=== PATIENT | female | born 1965 ===

== ENCOUNTER 2024-12-17 07:54 | Inpatient (IN) | payer MEDICARE, SELFPAY ==
--- OUTSIDE RECORDS SUMMARY | 2024-05-01 12:12 | XMS_ITS | Continuity of Care Document ---
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 [id number], [place] tel:[phone] [facility] Follow Up Back Pain (chief complaint)Follow Up Restless Legs (chief complaint)nsv medication injection (chief complaint) Posttraumatic stress disorderTourettes disorderBarrett's esophagus without dysplasiaAcute cystitis without hematuriaHip pain, left Feb-0 1 Leonid Wood. [address] [place] [address], [facility], . tel:[phone] [address], [address] [place] [address], tel:[phone] [facility] comments (chief complaint)urinary symptoms (chief complaint) Left flank painAcute cystitis without hematuria 0 1 Woo Garnica. [address] [place] [address], [facility], [place]. tel:[phone] [address] [place] [address], [address] [place] [address], tel:[phone] [facility] Urinary Symptoms (chief complaint) Left flank painDark urine 1 Lorne Sanderson. [address] [place] [address], [facility], . tel:[phone] [address] [place] [address], [address] [place] [address], tel:[phone] [facility] Musculoskeletal pain (chief complaint) Hip pain, leftStrain of lumbar region, subsequent encounterRestless legs 0 Leonid Knob Noster. [address] [place] [address], [facility], . tel:[phone] [address], [address] [place] [address], tel:[phone] [facility] No Information 0 No Information [address], [address] [place] [address], [place] tel:[phone] [facility] COPD (follow up) (chief complaint)Followu p Chronic Hip Pain (chief complaint)Toradol injection (chief complaint) Strain of lumbar region, subsequent encounterRestless legs 0 Leonid Wood. [address] [place] [address], [facility], [place]. tel:[phone] 9102 [address] , [place], [id number], tel:[phone] [facility] Vaginal discharge (chief complaint) HypokalemiaVagina l discharge Dec- 0 No Information [facility] , [address] [place] [address], [id number], tel:[phone] [facility] weakness (chief complaint)Follow Up of diarrhea (chief complaint) Body mass index (BMI) 31.0-31.9, adultInterstitial lung diseaseIrritable bowel syndrome with diarrheaTourettes disorder Dec- 0 Leonid Israel. [address] [place] [address], [facility], . tel:[phone] [address] [place] [address], [id number], tel:[phone] [facility] Chronic Diarrhea (chief complaint)Comment s (chief complaint)Recent ED Visits (chief complaint) Irritable bowel syndrome with diarrheaPeptic ulcer disease Sep-2 0 Leonid Kn[place] Noster. [address] [place] [address], [facility], . tel:[phone] [address], [id number], tel:[phone] [facility] Fatigue/Vomiting (chief complaint) Diarrhea, unspecified typeCounseling NOS Sep- 0 Jasson Lopez. [address] [place] [address], [facility], . tel:[phone] [address], [id number], [place] tel:[phone] [facility] Strain of lumbar region, subsequent encounter Sep-1 0 No Information [address], [id number], [place] tel:[phone] [facility] Follow Up Left Hip Pain (chief complaint)Follow Up Tourette's (chief complaint) Hip pain, leftTourettes disorderAlcohol use disorder, mild, abuse Sep 0 Leonid Israel. [address] [place] [address], [facility], [place]. tel:[phone] [facility] , [address] [place] [address], [id number], tel:[phone] [facility] nsv EKG, ear lavage, Toradol injection (chief complaint) Hip pain, leftEncounter for therapeutic drug level monitoring 0 No Information [facility] , [address] [place] [address], [id number], [place] tel:[phone] [facility] Anxiety (chief complaint)Back Pain (chief complaint) History of left hip replacementHip pain, leftTourettes disorderIrritable bowel syndrome with diarrhea 0 Leonid Kn[place] Noster. [address] [place] [address], [facility], [place]. tel:[phone] [address] [place] [address], [address] [place] [address], tel:[phone] [facility] No Information 0 Leonid Wood. [address] [place] [address], [facility], [place]. tel:[phone] [address], [id number], [place] tel:[phone] [facility] anxiety (chief complaint)ear fullness (chief complaint) Posttraumatic stress disorderIrritable bowel syndrome with diarrheaTourettes disorderImpacted cerumen of right earHistory of left hip replacement 0 Leonid Coopern. [address] [place] [address], [facility], [place]. tel:[phone] [address] [place] [address], [id number], [place] tel:[phone] [facility] cough (chief complaint) Cough 0 Sandro Burton. [address] [place] [address], [facility], [place]. tel:[phone], [id number], [place] tel:[phone] [facility] Anxiety (chief complaint) Posttraumatic stress disorderTourettes disorder 0 Leonid Kn[place] Noster. [address] [place] [address], [facility], . tel:[phone] [address], [id number], [place] tel:[phone] [facility] PTSD (chief complaint)Social work (chief complaint) Tourettes disorderPosttraum atic stress disorderIrritable bowel syndrome with diarrhea 0 Leonid Kn[place] Noster. [address] [place] [address], [facility], [place]. tel:[phone] [address], [id number], tel:[phone] [facility] tourettes (chief complaint) Posttraumatic stress disorderTourettes disorderInterstit ial lung diseasePeptic ulcer diseaseHistory of left hip replacement 0 Leonid Knob Noster. [address] [place] [address], [facility], [place]. tel:[phone] [address] [place] [address], [id number], [place] tel:[phone] [facility] Telemed (chief complaint)Housing (chief complaint) Tourettes disorderPosttraum atic stress disorder 0 Leonid Knob Noster. [address] [place] [address], [facility], [place]. tel:[phone] [address], [id number], [place] tel:[phone] [facility] neck pain (chief complaint)hip pain (chief complaint) Neck painAbrasion, face without infectionHip pain, left Apr-2 0 No Information [address], [id number], [place] tel:[phone] [facility] consent (chief complaint)COPD (follow up) (chief complaint)Comment s (chief complaint) Counseling, unspecifiedChroni c obstructive pulmonary disease with acute exacerbation Jun- 0 To Bang. [address] [place], [address], [place]. tel:[phone] [facility] , [address] [place] [address], [id number], [place] tel:[phone] [facility] cough (chief complaint)tourett es (chief complaint) Tourettes disorderInterstit ial lung diseaseAlcohol use Jun- 0 Leonid Knob Noster. [address] [place] [address], [id number], [place]. tel:[phone] [address], [id number], [place] tel:[phone] [facility] Consent (chief complaint)Med f/u (chief complaint) Counseling, unspecifiedChroni c obstructive pulmonary disease with acute exacerbation Apr-0 0 To Bang. [address] [place], [address], [place]. tel:[phone] 7069 [facility] , [address] [place] [address], [id number], [place] tel:[phone] [facility] cold symptoms (chief complaint)Achines s (chief complaint) Chronic obstructive pulmonary disease with acute exacerbationMuscu loskeletal painTourette's Apr-0 0 Koplsahraa Brian Anderson. [address], [place], [id number], [place]. tel:[phone] [facility] , [address] [place] [address], [id number], [place] tel:[phone] [facility] Bronchitis, not specified as acute or chronic Mar-2 0 Stevie Davila. [address] [place] [address], [address], [place]. tel:[phone] [facility] , [address] [place] [address], [id number], [place] tel:[phone] [facility] No Information May-0 3-202 0 Leonid Knob Noster. [address] [place] [address], [facility], . tel:[phone] [address], [id number], tel:[phone] [facility] cough (chief complaint) Cough 0 Sandro Burton. [address] [place] [address], [facility], [place]. tel:[phone] [facility] , [address] [place] [address], [id number], tel:[phone] [facility] depression (chief complaint) Back strain, subsequent encounterPosttrau matic stress disorderLymphocyt ic colitisIrritable bowel syndrome with diarrhea 0-201 9 Leonid Knob Noster. [address] [place] [address], [facility], [place]. tel:[phone] [address], [id number], [place] tel:[phone] [facility] No Information Oct-0 3-201 9 Leonid Knob Noster. [address] [place] [address], [facility], [place]. tel:[phone] [address], [address] [place] [address], [place] tel:[phone] [facility] No Information Sep-3 0-201 9 Vallabhaneni Gopichand. [address] [place] [address], [address] [place] [address], [place]. tel:[phone] [facility] , [address] [place] [address], [address] [place] [address], [place] tel:[phone] [facility] No Information Sep-2 7-201 9 Vallabhaneni Gopichand. [address] [place] [address], [address] [place] [address], [place]. tel:[phone] [address], [id number], tel:[phone] [facility] No Information Sep-2 4-201 9 Joel Lara. [address] [place] [address], [facility], [place]. tel:[phone] [address], [address] [place] [address], tel:[phone] [facility] back pain (chief complaint) Posttraumatic stress disorderHistory of substance abuseBack strain, subsequent encounterNeurotic excoriationsCellu litis of chest wall Sep-0 5 9 Leonid Israel. [address] [place] [address], [facility], . tel:[phone] [address], [address] [place] [address], tel:[phone] [facility] NSV - post hospital stay (chief complaint) Chronic right-sided low back pain without sciatica Aug-2 0-201 9 No Information [address], [address] [place] [address], tel:[phone] [facility] Posttraumatic stress disorderChronic right-sided low back pain without sciaticaOther chronic painLeft hip pain Oct-0 9-201 9 No Information [address], [address] [place] [address], [place] tel:[phone] [facility] hospital discharge (chief complaint) Posttraumatic stress disorderHistory of substance abuseBilateral impacted cerumen Oct-0 6201 9 Leonid Israel. [address] [place] [address], [facility], . tel:[phone] [address], [address] [place] [address], tel:[phone] [facility] No Information Merritt-0 7-201 9 Vallabyana Hernandezpichand. [address] [place] [address], [id number], [place]. tel:[phone] [facility] , [address] [place] [address], [id number], tel:[phone] [facility] No Information Merritt-0 9 Cira Menjivarhand. [address] [place] [address], [id number], [place]. tel:[phone] [facility] , [address] [place] [address], [address] [place] [address], [place] tel:[phone] [facility] diarrhea (chief complaint) Tourette's disorderPosttraum atic stress disorder Merritt-0 9 LeonidUNC HealthKnob Noster. [address] [place] [address], [facility], [place]. tel:[phone] [address], [address] [place] [address], tel:[phone] [facility] Follow Up of abdominal pain (chief complaint)back pain (chief complaint) Chronic right-sided low back pain without sciaticaOther chronic painIrritable bowel syndrome with diarrheaHistory of left hip replacementCigare tte nicotine dependence without complication Jun-2 9 LeonidUNC HealthIsrael. [address] [place] [address], [facility], . tel:[phone] [address], [address] [place] [address], tel:[phone] [facility] No Information Jun-2 9 No Information [address], [address] [place] [address], [place] tel:[phone] [facility] diarrhea (chief complaint) Irritable bowel syndrome with diarrhea Jun-0 9 LeonidUNC HealthKnob Noster. [address] [place] [address], [facility], . tel:[phone] [address], [address] [place] [address], [place] tel:[phone] [facility] Abdominal pain (chief complaint)Back pain (chief complaint)Insomni a (chief complaint)Toradol Inj (chief complaint) Left hip painLoss of consciousnessGene ralized abdominal painPTSD (post-traumatic stress disorder) 9 No Information [address], [id number], tel:[phone] [facility] Nausea (chief complaint) Loss of consciousnessAcut e gastritis without hemorrhage, unspecified gastritis type 9 No Information [address], [id number], [place] tel:[phone] [facility] Itching (chief complaint)fatigue (chief complaint) Seborrheic dermatitis of scalpDry skinBacterial vaginosisOther specified bacterial agents as the cause of diseases classified elsewhereInsomnia , unspecified type 9 Leonid Wood. [address] [place] [address], [address], [place]. tel:[phone] [address], [id number], tel:[phone] [facility] Vaginal Discharge (chief complaint) Acute vaginitisScreenin g for cervical cancerHistory of left hip replacement 8 Leonid Wood. [address] [place] [address], [address], [place]. tel:[phone] [address], [id number], [place] tel:[phone] [facility] nausea (chief complaint)cough (chief complaint) CoughNausea and vomiting, intractability of vomiting not specified, unspecified vomiting typeChronic bilateral low back pain, with sciatica presence unspecifiedOther chronic painVaginal discharge 8 Katina Samuel. [address] [place] [address], [address], [place]. tel:[phone] [address], [place] , [place], [id number], [place] tel:[phone] [facility] Follow Up of Post Traumatic Stress Disorder (chief complaint) Post-traumatic stress disorder, chronic 3 8 No Information [facility] , [address] [place] [address], [id number], [place] tel:[phone] [facility] dizziness (chief complaint)comment s (chief complaint) Tourette's disorder 0 8 Leonid Wood. [address] [place] [address], [address], [place]. tel:[phone] [address], [id number], [place] tel:[phone] [facility] anxiety (chief complaint) Anxiety disorder, unspecifiedTouret te's 8 No Information [facility] , [address] [place] [address], [id number], [place] tel:[phone] [facility] diarrhea (chief complaint) Abdominal pain in female 8 No Information [facility] , [address] [place] [address], [id number], [place] tel:[phone] [facility] hip pain (chief complaint)mredica tion refills (chief complaint)Ketoral ac injection (chief complaint) Other chronic painIrritable bowel syndrome with diarrheaScreening for colon cancer 8 Leonid Wood. [address] [place] [address], [address], [place]. tel:[phone] [address], [id number], [place] tel:[phone] [facility] No Information 8 Joel Lara. [address] [place] [address], [address], [place]. tel:[phone] [address], [id number], [place] tel:[phone] [facility] No Information 8 Roscoe Tran. [address] [place] [address], [facility], . tel:[phone] [address], [id number], tel:[phone] [facility] Anxiety (chief complaint)Wound (chief complaint) History of substance abuse 8 [facility] [address] [place] [address], [facility], . tel:[phone] [address], [id number], tel:[phone] [facility] Insomnia (chief complaint)Irritab le Bowel Syndrome (chief complaint) Posttraumatic stress disorderTourette' s disorderNose ulcerationIrritab le bowel syndrome with diarrhea 8 [facility] [address] [place] [address], [facility], . tel:[phone] [address], [id number], tel:[phone] [facility] Sleep disturbance (chief complaint) Insomnia, unspecified typeIrritable bowel syndrome with diarrhea 8 [facility] [address] [place] [address], [facility], . tel:[phone] [address], [id number], tel:[phone] [facility] depression (chief complaint) Posttraumatic stress disorderChronic bilateral low back pain, with sciatica presence unspecifiedOther chronic painCoughingDysur iaEncounter for screening for cardiovascular disordersScreenin g for diabetes mellitusScreening for STD (sexually transmitted disease)Chronic fatigueTherapeuti c drug monitoring 8 [facility]. [address] [place] [address], [facility], . tel:[phone] [address] [place] , [place], [id number], tel:[phone] [facility] No Information 2 8 No Information [address], [id number], tel:[phone] [facility] Abdominal pain (chief complaint)Headach e (chief complaint) Peptic ulcer diseasePosttrauma tic stress disorder 3 8 Leonid Wood. [address] [place] [address], [facility], [place]. tel:[phone] [place] [address], [id number], tel:[phone] [facility] abdominal pain (chief complaint) Epigastric discomfort 8 Pradhan Maria E. [address] [place] [address], [facility], . tel:[phone] [address], [address] [place] [address], tel:[phone] [facility] No Information 0 8 Galo Rain. [address] [place] [address], [facility], . tel:[phone], [id number], tel:[phone] [facility] No Information 0 8 No Information [address], [address] [place] [address], [place] tel:[phone] [facility] nausea (chief complaint) Bronchitis 0 8 Leonid Wood. [address] [place] [address], [facility], [place]. tel:[phone] [address], [id number], tel:[phone] [facility] back pain (chief complaint) Strain of lumbar region, initial encounter Fe0 8 Leonid Wood. [address] [place] [address], [facility], [place]. tel:[phone] [address], [id number], tel:[phone] [facility] No Information 8 Stepan Yeniferradhaana luisa. [address] [place] [address], [address] [place] [address], [place]. tel:[phone], [address] [place] [address], [place] tel:[phone] [facility] No Information 8 Finch No. [address] [place] [address], [id number], [place]. tel:[phone] [address], [address] [place] [address], tel:[phone] [facility] Pre-Op Physical (chief complaint)Follow Up of Lice (chief complaint) Recurrent dislocation of hip, unspecified lateralityPeptic ulcer diseaseScreening for STD (sexually transmitted disease) 8 Leonid Wood. [address] [place] [address], [facility], [place]. tel:[phone] [address], [id number], tel:[phone] [facility] No Information 8 Arissoniya Yeniferradhaana luisa. [address] [place] [address], [id number], [place]. tel:[phone] [address], [id number], [place] tel:[phone] [facility] No Information 8 No Information [address], [address] [place] [address], [place] tel:[phone] [facility] medication management (chief complaint) Encounter for administrative examinations 7 No Information [address], [id number], [place] tel:[phone] Home anxiety (chief complaint)hip pain (chief complaint) Dislocation of left hip, subsequent encounterPosttrau matic stress disorderInsomnia, unspecified type 7 Leonid Wood. [address] [place] [address], [id number], [place]. tel:[phone] [address], [id number], [place] tel:[phone] [facility] Hip Pain (chief complaint) Left hip pain 7 No Information [address], [id number], [place] tel:[phone] [facility] Dislocation of left hip, subsequent encounter 7 No Information [address], [id number], [place] tel:[phone] [facility] Mouth Pain (chief complaint) Tooth extraction statusOther psychoactive substance dependence, in remission 7 Leonid Wood. [address] [place] [address], [id number], [place]. tel:[phone] [address], [id number], [place] tel:[phone] [facility] Other psychoactive substance dependence, in remission 7 No Information [address], [id number], [place] tel:[phone] [facility] Mouth Pain (chief complaint) Tooth extraction statusEncounter for therapeutic drug level monitoring 7 Leonid Wood. [address] [place] [address], [id number], [place]. tel:[phone] [address], [id number], [place] tel:[phone] [facility] No Information 7 No Information [facility] , [address] [place] [address], [id number], [place] tel:[phone] [facility] No Information Dec- 7 No Information [facility] , [address] [place] [address], [id number], [place] tel:[phone] [facility] Hip DIslocations (chief complaint)Toradol (chief complaint) Pain in unspecified hipLong term (current) use of opiate analgesicOther personal lines advisor (current) drug therapy Dec- 7 Sandro Burton. [address] [place] [address], [address], [place]. tel:[phone] [address], [id number], [place] tel:[phone] [facility] tremor (chief complaint) Essential tremor Dec- Sandro Burton. [address] [place] [address], [facility], [place]. tel:[phone] [address], [id number], [place] tel:[phone] [facility] No Information 7 Vallabhaneni Gopichand. [address] [place] [address], [id number], [place]. tel:[phone] [address], [id number], [place] tel:[phone] [facility] hip pain (chief complaint)Anxiety (chief complaint) Post-traumatic stress disorder, chronicPain in lt hip Sep-2 7 Sandro Burton. [address] [place] [address], [id number], [place]. tel:[phone] [address], [id number], [place] tel:[phone] [facility] Musculoskeletal pain (chief complaint) Chest painEncounter for screening for cancer of colon Sep-1 7 Katina Samuel. [address] [place] [address], [facility], [place]. tel:[phone] [phone] [facility] , [address] [place] [address], [id number], tel:[phone] [facility] Contusion (FP) (chief complaint) Contusion of head, initial encounterPost-tra umatic stress disorder, chronic 7 [facility]. [address] [place] [address], [facility], [place]. tel:[phone] [address] [place] [address] , [address] [place] [address], [id number], [place] tel:[phone] [facility] chest pain (chief complaint) Chest pain 7 Sandro Burton. [address] [place] [address], [facility], [place]. tel:[phone] [facility] , [address] [place] [address], [id number], [place] tel:[phone] [facility] Major depressive disorder non-psychotic recurrent, severe 7 Lele Sanchez. [address] [place] [address], [facility], [place]. tel:[phone] [facility] , [address] [place] [address], [id number], [place] tel:[phone] [facility] hospital de follow up (chief complaint)Vaginal itching (chief complaint) Duodenitis with bleedingPost-trau matic stress disorder, chronic 7 Lafferty Israel. [address] [place] [address], [address], [place]. tel:[phone] [address], [id number], [place] tel:[phone] [facility] Abdominal pain (chief complaint) Lower abdominal painAnemiaOther psychoactive substance dependence, in remission 7 Katina Samuel. [address] [place] [address], [facility], [place]. tel:[phone] 3432 [facility] , [address] [place] [address], [id number], [place] tel:[phone] [facility] hospital discharge follow up (chief complaint)Depress ion (chief complaint) Post-traumatic stress disorder, chronicRecurrent dislocation, left hipDepression 7 [facility]. [address] [place] [address], [facility], [place]. tel:[phone] [address], [id number], [place] tel:[phone] [facility] medication managment (chief complaint) Encounter for administrative examination 7 Leonid Israel. [address] [place] [address], [facility], [place]. tel:[phone] [address], [id number], tel:[phone] [facility] Encounter for administrative examination 7 Specialist [facility]. [address] [place] [address], [facility], [place]. tel:[phone] [address], [id number], [place] tel:[phone] [facility] foot pain (chief complaint) Neuropathy 7 Deborah Carvajal. [address] [place] [address], [facility], [place]. tel:[phone] [address], [id number], [place] tel:[phone] [facility] Numbness (chief complaint)numbnes s continued (chief complaint) Encounter for administrative examination 7 No Information [address], [id number], [place] tel:[phone] [facility] Encounter for administrative examination 6 Specialist [facility]. [address] [place] [address], [facility], . tel:[phone] [address], [address] [place] [address], tel:[phone] [facility] Encounter for administrative examination 6 Specialist [facility]. [address] [place] [address], [facility], . tel:[phone] [facility] , [address] [place] [address], [address] [place] [address], tel:[phone] [facility] Abdominal pain (chief complaint) Abdominal pain 0 6 Katina Samuel. [address] [place] [address], [facility], . tel:[phone] [address], [address] [place] [address], tel:[phone] [facility] Cold symptoms (chief complaint) Bronchitis 6 Leonid Knob Noster. [address] [place] [address], [facility], [place]. tel:[phone] [address], [address] [place] [address], tel:[phone] [facility] Encounter for administrative examination Nov-2 6 Specialist [facility]. [address] [place] [address], [facility], . tel:[phone] [address], [address] [place] [address], [place] tel:[phone] [facility] hip pain (chief complaint) Pain in left hipEncounter for STD screeningEncounte r for screening for diabetes mellitusEncounter for screening for cardiovascular disordersNausea with vomiting, unspecified Sep- 6 Leonid [place]. [address] [place] [address], [facility], [place]. tel:[phone] [address], [address] [place] [address], [place] tel:[phone] [facility] Encounter for administrative examination Nov-0 6 Specialist [facility]. [address] [place] [address], [facility], . tel:[phone] [facility] , [address] [place] [address], [address] [place] [address], tel:[phone] [facility] Encounter for administrative examination 6 Specialist [facility]. [address] [place] [address], [facility], [place]. tel:[phone] [facility] , [address] [place] [address], [address] [place] [address], tel:[phone] [facility] Rash (chief complaint) Dermatitis 6 Leonid Israel. [address] [place] [address], [facility], . tel:[phone] [address], [address] [place] [address], tel:[phone] [facility] No Information 6 Leonid Kn[place] Noster. [address] [place] [address], [facility], . tel:[phone] [address], [address] [place] [address], tel:[phone] [facility] Encounter for administrative examination 0 6 Specialist [facility]. [address] [place] [address], [facility], [place]. tel:[phone] [address], [address] [place] [address], [place] tel:[phone] [facility] Encounter for administrative examination 2 6 Specialist [facility]. [address] [place] [address], [facility], . tel:[phone] [address], [address] [place] [address], [place] tel:[phone] [facility] musculoskeletal pain (chief complaint)abdomin al pain (chief complaint) CoughBackacheTOUR ETTE'S DISORDER 4 Bogdangennaro Rodriguez. [address] [place], [place], [facility], . tel:[phone] [address], [id number], tel:[phone] [facility] flu-like symptoms (chief complaint)itching (chief complaint) CoughDERMATITIS NOS 4 Damaris Gotti. [address] [place] [address], [facility], [place]. tel:[phone] [address], [id number], tel:[phone] [facility] skin lesion (chief complaint)tourett e's disorder (chief complaint) TOURETTE'S DISORDERPersisten t Insomnia 4 No Information [address], [id number], [place] tel:[phone] [facility] TOURETTE'S DISORDERPOSTTRAUM ATIC STRESS DIS 4 Tariq Zapata. [address] [place] [address], [facility], . tel:[phone] [address], [id number], [place] tel:[phone] [facility] angry (chief complaint) No Information 4 No Information [address], [id number], [place] tel:[phone] [facility] cough (chief complaint)left hip pain (chief complaint)cough, part 2 (chief complaint) Respiratory InsufficiencyTOUR ETTE'S DISORDERCough 3 No Information [address], [id number], [place] tel:[phone] [facility] hip pain (chief complaint) Joint Pain-l/leg 6201 [address], [id number], [place] tel:[phone] [facility] No Information 200 9 No Information [facility] , [address] [place] [address], [id number], tel:[phone] [facility] Tourette Syndrome (chief complaint)anxiety (chief complaint)Leg/rosendo k pain (chief complaint)Insomni a (chief complaint)Dementi a (chief complaint)Sore Throat (chief complaint) Anxiety StatesTOURETTE'S DISORDERSCREEN FOR VENERAL DISLUMBAGOAcute PharyngitisMEMORY LOSS 8 8 Cristiane Bentley. [address] [place], [place], [facility], . tel:[phone] [address], [address] [place] [address], tel:[phone] [facility] cold symptoms (chief complaint) Acute PharyngitisACUTE BRONCHITIS 8 8 [employer] Systemscoana luisa Bentley. [address] [place], [place], [facility], . tel:[phone] [address], [id number], tel:[phone] [facility] anxiety (chief complaint) No Information 8 8 No Information [address], [id number], [place] tel:[phone] [facility] No Information 8 8 Sandro Burton. [address] [place] [address], [address], [place]. tel:[phone] [address], [id number], [place] tel:[phone] [facility] depression (chief complaint)anxiety (chief complaint) Depressive Disorder NecAnxiety States 0200 8 Cristiane Bentley. [address] [place], [address], [place]. tel:[phone] [address], [id number], [place] tel:[phone] [facility] No Information 4200 8 No Information [address], [id number], [place] tel:[phone] [facility] Tourette's (chief complaint) TOURETTE'S DISORDERPOSTTRAUM ATIC STRESS DIS 3 8 No Information [address], [id number], [place] tel:[phone] [facility] No Information 8 No Information [address], [id number], [place] tel:[phone] [facility] tourette's syndrome (chief complaint) No Information 8 No Information [address], [id number], [place] tel:[phone] [facility] No Information 8 No Information [address], [id number], [place] tel:[phone] [facility] No Information 8 No Information [address], [id number], [place] tel:[phone] [facility] diarrhea (chief complaint)tremor (chief complaint) DIARRHEAVACCIN FOR INFLUENZATOURETTE 'S DISORDER 8 Sandro Burton. [address] [place] [address], [address], [place]. tel:[phone], [id number], [place] tel:[phone] [facility] pain (chief complaint)tourett es syndrome (chief complaint) Bharat Tourette DisorderMyalgia And Myositis Nos Nov-2 8 No Information [address], [id number], tel:[phone] [facility] No Information Nov-2 8 No Information [address], [address] [place] [address], tel:[phone] [facility] back pain (chief complaint)home health care (chief complaint)insomni a (chief complaint) Persistent InsomniaAlcoh Dep Nec/nos-contin Nov-0 8 Sandro Burton. [address] [place] [address], [facility], . tel:[phone] [address], [address] [place] [address], tel:[phone] [facility] asthma (chief complaint)terrets (chief complaint)insomni a (chief complaint) Alcoh Dep Nec/nos-continDep ressive Disorder Nec Oct- 8 Sandro Burton. [address] [place] [address], [facility], . tel:[phone] [address] [place] [address], [address] [place] [address], tel:[phone] [facility] No Information 8 No Information [address], [address] [place] [address], tel:[phone] [facility] No Information 8 Bernardaaleida Bates. [address] [place] [address], [facility], . tel:[phone] [address], [address] [place] [address], tel:[phone] [facility] Depressive Disorder NecALCOHOL ABUSE-UNSPEC 8 No Information [address], [address] [place] [address], [place] tel:[phone] [facility] Terretes Syndrome (chief complaint) No Information 8 Sandro Burton. [address] [place] [address], [facility], . tel:[phone], [address] [place] [address], tel:[phone] [facility] No Information 8 No Information [facility] , [address] [place] [address], [address] [place] [address], [place] tel:[phone] [facility] back pain (chief complaint)rash (chief complaint) Joint Dis Nos-pelvis 8 Sandro Burton. [address] [place] [address], [facility], . tel:[phone], [address] [place] [address], tel:[phone] [facility] No Information 8 Austinjunieana luisa Garza. [address] [place] [address], [facility], . tel:[phone], [address] [place] [address], tel:[phone] [facility] Medication Check (chief complaint) Persistent InsomniaAnxiety StatesAlcoh Dep Nec/nos-continChr onic Hepatitis Nos 8 Sandro Burton. [address] [place] [address], [facility], [place]. tel:[phone], [address] [place] [address], [place] tel:[phone] [facility] Chronic Pain (chief complaint) Joint Dis Nos-pelvis 8 Sandro Burton. [address] [place] [address], [facility], . tel:[phone], [address] [place] [address], [place] tel:[phone] [facility] No Information 8 No Information [facility] , [address] [place] [address], [address] [place] [address], tel:[phone] [facility] Alcoh Dep Nec/nos-contin 8 No Information [address], [address] [place] [address], tel:[phone] [facility] vomiting (chief complaint)pain (chief complaint) Joint Dis Nos-pelvisEncntr Long-rx Use NecNausea With Vomiting 8 Sandro Burton. [address] [place] [address], [facility], . tel:[phone] [address], [address] [place] [address], tel:[phone] [facility] No Information 8 No Information [address], [address] [place] [address], tel:[phone] [facility] vomiting (chief complaint)pain (chief complaint) Nausea With VomitingReflux EsophagitisEncntr Long-rx Use Nec 8 Sandro Burton. [address] [place] [address], [facility], . tel:[phone] [address], [address] [place] [address], tel:[phone] [facility] back pain (chief complaint) Joint Dis Nos-pelvisEncntr Long-rx Use Nec 8 Sandro Burton. [address] [place] [address], [facility], . tel:[phone] [address], [address] [place] [address], tel:[phone] [facility] cold symptoms (chief complaint)medicat ion refill (chief complaint) Joint Dis Nos-pelvisPersist ent InsomniaEncntr Long-rx Use NecChronic HepatitisOth Malaise Fatigue 2200 8 Jonnietatagarfield Micheal. [address] [place] [address], [facility], [place]. tel:[phone] [facility] , [address] [place] [address], [id number], [place] tel:[phone] [facility] F/U (chief complaint) Joint Dis Nos-pelvisAnxiety States 1200 8 Jonnievanessa Burton. [address] [place] [address], [facility], [place]. tel:[phone] [address], [id number], [place] tel:[phone] [facility] back pain (chief complaint) Bharat Tourette DisorderJoint Dis Nos-pelvisEncntr Long-rx Use Nec May- 7200 8 Jonnietatagarfield Micheal. [address] [place] [address], [facility], [place]. tel:[phone] [address], [id number], [place] tel:[phone] [facility] back pain (chief complaint)Tourett es (chief complaint) Joint Dis Nos-pelvisGilles Tourette DisorderGilles Tourette Disorder 3200 8 Jonnietatagarfield Micheal. [address] [place] [address], [facility], [place]. tel:[phone] [address], [id number], [place] tel:[phone] [facility] joint pain (chief complaint) Joint Dis Nos-pelvis Apr- 8200 8 Warngarfield Micheal. [address] [place] [address], [facility], [place]. tel:[phone] [address], [id number], [place] tel:[phone] [facility] hip pain (chief complaint) Joint Dis Nos-pelvis 8 Sandro Burton. [address] [place] [address], [facility], [place]. tel:[phone] [facility] , [address] [place] [address], [id number], [place] tel:[phone] [facility] medication refill (chief complaint) Joint Dis Nos-pelvis 8 Jonnievanessa Burton. [address] [place] [address], [facility], [place]. tel:[phone] [facility] , [address] [place] [address], [address] [place] [address], [place] tel:[phone] [facility] No Information 8 No Information [facility] , [address] [place] [address], [id number], [place] tel:[phone] [facility] medication RF (chief complaint) Joint Dis Nos-pelvisCocaine Abuse-episodic 8 Jonnievanessa Burton. [address] [place] [address], [facility], [place]. tel:[phone] [address], [address] [place] [address], [place] tel:[phone] [facility] medication refill (chief complaint)headach e (chief complaint) Joint Dis Nos-pelvisCocaine Abuse-episodicTob acco Use Disorder 8 Sandro Burton. [address] [place] [address], [facility], [place]. tel:[phone] [phone] [facility] , [address] [place] [address], [id number], [place] tel:[phone] [facility] medication refill (chief complaint) No Information 7 Sandro Burton. [address] [place] [address], [facility], [place]. tel:[phone] [address], [id number], [place] tel:[phone] [facility] chronic pain (chief complaint) Joint Dis Nos-pelvis 7 Sandro Burton. [address] [place] [address], [facility], [place]. tel:[phone] 0039 [facility] , [address] [place] [address], [id number], [place] tel:[phone] [facility] nose sore (chief complaint)torrett s syndrome (chief complaint)medicat ion refill (chief complaint) Joint Dis Nos-pelvisTobacco Use Disorder 2 7 Sandro Burton. [address] [place] [address], [facility], [place]. tel:[phone] [facility] , [address] [place] [address], [address] [place] [address], tel:[phone] [facility] cold symptoms (chief complaint)medicat ion refill (chief complaint) Joint Dis Nos-pelvis Jan-0 7 Sandro Burton. [address] [place] [address], [facility], [place]. tel:[phone] [facility] , [address] [place] [address], [id number], tel:[phone] [facility] No Information 7 No Information [facility] , [address] [place] [address], [id number], tel:[phone] [facility] chronic pain (chief complaint) No Information 7 Sandro Burton. [address] [place] [address], [facility], [place]. tel:[phone] [address], [id number], [place] tel:[phone] [facility] Chronic Pain (chief complaint)wheezin g (chief complaint) Joint Dis Nos-pelvis Dec- 2200 7 Sandro Burton. [address] [place] [address], [facility], [place]. tel:[phone] [facility] , [address] [place] [address], [address] [place] [address], [place] tel:[phone] [facility] chronic pain (chief complaint) No Information Sep-2 8-200 7 Sandro Burton. [address] [place] [address], [facility], . tel:[phone], [address] [place] [address], tel:[phone] [facility] abdominal discomfort (chief complaint) No Information Sep-2 5-200 7 Sandro Burton. [address] [place] [address], [facility], [place]. tel:[phone], [address] [place] [address], tel:[phone] [facility] No Information Sep-2 200 7 Sandro Burton. [address] [place] [address], [facility], [place]. tel:[phone], [address] [place] [address], [place] tel:[phone] [facility] medication refill (chief complaint) No Information Nov-1 4200 7 Sandro Burton. [address] [place] [address], [facility], . tel:[phone] [address], [address] [place] [address], tel:[phone] [facility] diarrhea (chief complaint)Pain Control (chief complaint)medicat ion refill (chief complaint) Joint Dis Nos-pelvis Aug-1 7-200 7 Sandro Burton. [address] [place] [address], [facility], [place]. tel:[phone], [address] [place] [address], tel:[phone] [facility] back pain (chief complaint) No Information Aug-0 3-200 7 Sandro uBrton. [address] [place] [address], [facility], . tel:[phone] [facility] , [address] [place] [address], [address] [place] [address], tel:[phone] [facility] No Information 7-200 7 No Information [address], [address] [place] [address], tel:[phone] [facility] Insomnia (chief complaint)depress ion (chief complaint)Joint pain (chief complaint) No Information 0-200 7 Sandro Burton. [address] [place] [address], [facility], . tel:[phone], [address] [place] [address], tel:[phone] [facility] Diarrhea (chief complaint)Hip Pain (chief complaint) No Information 3-200 7 Sandro Burton. [address] [place] [address], [facility], . tel:[phone] [address], [address] [place] [address], tel:[phone] [facility] back pain (chief complaint)insomni a (chief complaint) Joint Dis Nos-pelvisPersist ent Insomnia Aug- 6200 7 Sandro Burton. [address] [place] [address], [facility], . tel:[phone], [address] [place] [address], [place] tel:[phone] [facility] back pain (chief complaint)depress ion (chief complaint) No Information 2200 7 Sandro Burton. [address] [place] [address], [facility], . tel:[phone], [address] [place] [address], tel:[phone] [facility] back pain (chief complaint) Joint Dis Nos-pelvis 5200 7 Sandro Burton. [address] [place] [address], [facility], . tel:[phone] [address], [id number], tel:[phone] [facility] back pain (chief complaint) No Information 8 7 No Information [address], [address] [place] [address], tel:[phone] [facility] sore throat (chief complaint)constip ation (chief complaint) No Information 4 7 No Information [address], [address] [place] [address], tel:[phone] [facility] back pain (chief complaint) No Information 7 Sandro Burton. [address] [place] [address], [facility], . tel:[phone] [address], [address] [place] [address], tel:[phone] [facility] Asthma (chief complaint)abdomin al discomfort (chief complaint) Hordeolum Externum 4 7 Sandro Burton. [address] [place] [address], [facility], . tel:[phone] [address], [address] [place] [address], tel:[phone] [facility] depression (chief complaint)Chronic pain (chief complaint) No Information 7-200 7 Sandro Burton. [address] [place] [address], [facility], . tel:[phone] [address], [address] [place] [address], tel:[phone] [facility] diarrhea (chief complaint) Diarrhea 9200 7 No Information [address], [place] , [place], [id number], tel:[phone] [facility] Back pain (chief complaint)Depress ion (chief complaint) Joint Dis Nos-pelvisCocaine Abuse-episodicTob acco Use DisorderPersisten t Insomnia Jun- 2200 7 Counts Include [address] [facility]. [address] [place] [address], [facility], [place]. tel:[phone] [facility] , [address] [place] [address], [address] [place] [address], tel:[phone] [facility] Back pain (chief complaint)bump (chief complaint) Joint Dis Nos-pelvis Jun-0 5200 7 Counts Include [address] [facility]. [address] [place] [address], [facility], [place]. tel:[phone] [address] [place] [address], [id number], tel:[phone] [facility] Back pain (chief complaint)itchine ss (chief complaint) Joint Pain-pelvisTobacc o Use DisorderDrug Abuse Nec-episodicAnxie ty States May-0 200 7 Counts Include [address] [facility]. [address] [place] [address], [facility], [place]. tel:[phone] [address], [id number], tel:[phone] [facility] pelvic pain (chief complaint) Adjust React-phys SymptBackache Nos Fe 7 Counts Include [address] [facility]. [address] [place] [address], [facility], [place]. tel:[phone] [address] [place] [address], [id number], tel:[phone] [facility] back pain (chief complaint)diabete s (chief complaint) Sprain Lumbar RegionScreen-diab etes Mellitus 0200 7 Josie Penn. [address] [place] [address], [id number], [place]. tel:[phone] [facility] , [address] [place] [address], [id number], tel:[phone] [facility] depression (chief complaint)cough (chief complaint) Bharat Tourette DisorderPersisten t Insomnia 7 Sandro Burton. [address] [place] [address], [facility], . tel:[phone] [address], [id number], tel:[phone] [facility] No Information 7 No Information [address], [id number], [place] tel:[phone] [facility] Vaginal itching (chief complaint)cold symptoms (chief complaint) Candidal VulvovaginitisAcu te Uri Mult Sites Nec 7 No Information [address], [id number], tel:[phone] [facility] Back pain (chief complaint)Depress ion (chief complaint) Joint Dis Nos-pelvis 7 Jonnievanessa Burton. [address] [place] [address], [id number], [place]. tel:[phone] [address], [id number], tel:[phone] [facility] No Information 6 No Information [address], [id number], [place] tel:[phone] [facility] No Information 6 Thelma Garza. [address] [place] [address], [id number], [place]. tel:[phone] [address], [id number], tel:[phone] [facility] hip pain (chief complaint)Insomni a (chief complaint) No Information 1 8-200 6 Sandro Burton. [address] [place] [address], [facility], [place]. tel:[phone] [address], [id number], tel:[phone] [facility] Joint Dis Nos -pelvis (chief complaint)abdomin al discomfort (chief complaint) Nausea With Vomiting Dec- 1-200 6 Sandro Burton. [address] [place] [address], [facility], [place]. tel:[phone] [address], [address] [place] [address], tel:[phone] [facility] chronic pain (chief complaint)nausea (chief complaint) No Information Feb-0 4-200 6 Sandro Burton. [address] [place] [address], [facility], [place]. tel:[phone] [address], [address] [place] [address], [place] tel:[phone] [facility] cold symptoms (chief complaint)knee/le g pain (chief complaint) No Information 2 0-200 6 Sandro Burton. [address] [place] [address], [facility], [place]. tel:[phone] [address], [id number], tel:[phone] [facility] No Information 7-200 6 No Information [address], [id number], [place] tel:[phone] [facility] leg/knee pain (chief complaint) No Information 1 3-200 6 Sandro Burton. [address] [place] [address], [facility], [place]. tel:[phone] [address], [address] [place] [address], [place] tel:[phone] [facility] knee/leg pain (chief complaint) Joint Dis Nos-pelvis Nov-0 6-200 6 Andres Robins. [address] [place] [address], [facility], . tel:[phone] [facility] , [address] [place] [address], [id number], tel:[phone] [facility] chronic pain (chief complaint) Aseptic Necrosis Femur Oct-3 0-200 6 Sandro Burton. [address] [place] [address], [facility], [place]. tel:[phone] [address] [place] [address], [address] [place] [address], tel:[phone] [facility] joint pain f/u,back pain (chief complaint) Aseptic Necrosis Femur Oct-2 3-200 6 Sandro Burton. [address] [place] [address], [facility], . tel:[phone] [address] [place] [address], [address] [place] [address], tel:[phone] [facility] Joint Dis Nos-pelvis (chief complaint)anxiety (chief complaint)cough (chief complaint) No Information Oct-1 6-200 6 Sandro Burton. [address] [place] [address], [facility], . tel:[phone] [address], [address] [place] [address], [place] tel:[phone] [facility] joint pain (chief complaint) Joint Dis Nos-pelvis Oct-0 9-200 6 Sandro Burton. [address] [place] [address], [facility], [place]. tel:[phone] [address] [place] [address], [address] [place] [address], tel:[phone] [facility] insomnia (chief complaint)cough (chief complaint)knee pain (chief complaint) Aseptic Necrosis Femur Oct-0 2-200 6 Warvanessa Burton. [address] [place] [address], [facility], . tel:[phone] [facility] , [address] [place] [address], [id number], tel:[phone] [facility] knee pain (chief complaint)cough (chief complaint) Joint Dis Nos-pelvisCoughTo bacco Use Disorder Sep-2 6 Berrytonvanessa Burton. [address] [place] [address], [facility], [place]. tel:[phone] [facility] , [address] [place] [address], [id number], [place] tel:[phone] [facility] knee/hip pain (chief complaint)depress ion (chief complaint) Joint Pain-l/legAseptic Necrosis Femur Sep- 6 [facility]. [address] [place] [address], [facility], . tel:[phone] [facility] , [address] [place] [address], [address] [place] [address], tel:[phone] [facility] pain (chief complaint)dizzine ss (chief complaint) Asept Necrosis Bone NosJoint Pain-l/leg Sep- 6 Berrytonvanessa Burton. [address] [place] [address], [facility], [place]. tel:[phone] [address], [address] [place] [address], tel:[phone] [facility] No Information Oct- 6 No Information [facility] , [address] [place] [address], [id number], [place] tel:[phone] [facility] BP check (chief complaint) Dizziness And GiddinessAseptic Necrosis FemurTobacco Use Disorder Oct- 6 Warvanessa Burton. [address] [place] [address], [facility], . tel:[phone] [address], [id number], [place] tel:[phone] [facility] No Information 6 Thelma Garza. [address] [place] [address], [facility], [place]. tel:[phone] [facility] , [address] [place] [address], [address] [place] [address], tel:[phone] [facility] osteonecrosis (chief complaint)Dizzine ss (chief complaint) No Information 6 Sandro Burton. [address] [place] [address], [facility], [place]. tel:[phone] [address], [address] [place] [address], tel:[phone] [facility] leg pain (chief complaint) No Information 0 6 Sandro Burton. [address] [place] [address], [facility], [place]. tel:[phone] [address], [address] [place] [address], [place] tel:[phone] [facility] Nausea (chief complaint) Joint Dis Nos-pelvisAnxiety State NosOpioid Dependence-unspec Aug-0 9200 6 No Information [facility] , [address] [place] [address], [address] [place] [address], [place] tel:[phone] [facility] medication refill (chief complaint) Joint Dis Nos-pelvisAnxiety States Aug-0 8200 6 Sandro Burton. [address] [place] [address], [facility], [place]. tel:[phone] [address], [address] [place] [address], [place] tel:[phone] [facility] No Information 0 2-200 6 No Information [address], [address] [place] [address], [place] tel:[phone] [facility] back pain (chief complaint)medicat ion refill (chief complaint) Aseptic Necrosis FemurTobacco Use Disorder Sep-3 1-200 6 Warnken Micheal. [address] [place] [address], [facility], [place]. tel:[phone] [facility] , [address] [place] [address], [address] [place] [address], tel:[phone] [facility] med refill (chief complaint) Nausea With VomitingAbd Pain GeneralizedAsepti c Necrosis Femur Sep- 7-200 6 Warnken Micheal. [address] [place] [address], [facility], [place]. tel:[phone] [facility] , [address] [place] [address], [id number], tel:[phone] [facility] leg pain (chief complaint) Aseptic Necrosis Femur 0-200 6 [place]field Micheal. [address] [place] [address], [facility], [place]. tel:[phone] [facility] , [address] [place] [address], [address] [place] [address], [place] tel:[phone] [facility] leg pain (chief complaint) Aseptic Necrosis Femur 0 3200 6 Jonnievanessa Burton. [address] [place] [address], [facility], [place]. tel:[phone] 1972 [facility] , [address] [place] [address], [id number], [place] tel:[phone] [facility] leg pain (chief complaint) Pruritic Conditions NecAseptic Necrosis Femur Aug- 6-200 6 Warngarfield Micheal. [address] [place] [address], [facility], [place]. tel:[phone] [address], [id number], [place] tel:[phone] [facility] foot discomfort (chief complaint)medicat ion refill (chief complaint) Dermatophytosis Of FootPruritic Conditions NecAseptic Necrosis Femur 2 0-200 6 Warnken Micheal. [address] [place] [address], [facility], . tel:[phone] [facility] , [address] [place] [address], [id number], tel:[phone] [facility] foot sores (chief complaint)medicat ion refill (chief complaint) Aseptic Necrosis FemurDermatophyto sis Of Foot Merritt-1 3-200 6 Warnken Micheal. [address] [place] [address], [facility], . tel:[phone] [facility] , [address] [place] [address], [address] [place] [address], [place] tel:[phone] [facility] No Information Merritt-0 8-200 6 No Information [facility] , [address] [place] [address], [address] [place] [address], tel:[phone] [facility] leg pain (chief complaint) Joint Pain-l/leg Merritt-0 6-200 6 Warnken Micheal. [address] [place] [address], [facility], . tel:[phone] [facility] , [address] [place] [address], [address] [place] [address], tel:[phone] [facility] Generic (chief complaint) Aseptic Necrosis Femur Merritt-0 1-200 6 Warnken Micheal. [address] [place] [address], [facility], . tel:[phone] [address], [address] [place] [address], [place] tel:[phone] [facility] leg pain (chief complaint) Joint Pain-l/leg May-2 5-200 6 Warnken Micheal. [address] [place] [address], [facility], . tel:[phone] [address], [address] [place] [address], tel:[phone] [facility] leg pain (chief complaint) Joint Pain-l/legSyncope And Collapse May-1 8-200 6 Sandro Burton. [address] [place] [address], [facility], [place]. tel:[phone] [address], [id number], tel:[phone] [facility] No Information 1 8-200 6 Sandro Burton. [address] [place] [address], [facility], [place]. tel:[phone] [facility] , [address] [place] [address], [address] [place] [address], [place] tel:[phone] [facility] Recheck/Joint Pain/Lower Extremeties (chief complaint) Joint Pain-l/legPruriti c Conditions Nec July-1 2-200 6 Sandro Burton. [address] [place] [address], [facility], . tel:[phone] [address], [address] [place] [address], tel:[phone] [facility] bilat knee pain (chief complaint) Joint Pain-l/leg May-0 5-200 6 Sandro Burton. [address] [place] [address], [facility], [place]. tel:[phone] [address], [address] [place] [address], tel:[phone] [facility] No Information May-0 3-200 6 No Information [facility] , [address] [place] [address], [address] [place] [address], [place] tel:[phone] [facility] knee pain (chief complaint) Joint Pain-l/leg Apr-2 7-200 6 Sandro Burton. [address] [place] [address], [facility], [place]. tel:[phone] [address], [address] [place] [address], [place] tel:[phone] [facility] knee pain (chief complaint) Joint Pain-l/legAseptic Necrosis FemurObesity Nos Apr-2 0-200 6 Sandro Burton. [address] [place] [address], [facility], [place]. tel:[phone] [facility] , [address] [place] [address], [id number], [place] tel:[phone] [facility] PE (chief complaint) Routine Medical Exam Apr-1 3-200 6 Sandro Burton. [address] [place] [address], [facility], [place]. tel:[phone] [address], [id number], tel:[phone] [facility] knee pain (chief complaint) Aseptic Necrosis FemurTobacco Use Disorder Apr-0 6-200 6 Warvanessa Burton. [address] [place] [address], [facility], [place]. tel:[phone] [facility] , [address] [place] [address], [id number], [place] tel:[phone] [facility] knee pain (chief complaint) Joint Pain-l/legAseptic Necrosis FemurCough Apr-0 4-200 6 No Information [facility] , [address] [place] [address], [id number], [place] tel:[phone] [facility] medication review (chief complaint)cough (chief complaint) Acute NasopharyngitisAs eptic Necrosis Femur Mar-2 7-200 6 Sandro Burton. [address] [place] [address], [facility], [place]. tel:[phone] [address], [id number], [place] tel:[phone] [facility] medication refill (chief complaint)cold symptoms (chief complaint) Aseptic Necrosis FemurPalpitations Joint Pain-l/leg Mar-2 3-200 6 Sandro Burton. [address] [place] [address], [facility], [place]. tel:[phone] [facility] , [address] [place] [address], [id number], tel:[phone] [facility] medication refill (chief complaint) Aseptic Necrosis FemurTobacco Use DisorderJoint Pain-l/legAllergi c Rhinitis Nos May- 6-200 6 [place] Micheal. [address] [place] [address], [facility], . tel:[phone] [facility] , [address] [place] [address], [id number], tel:[phone] [facility] Knee Pain (chief complaint)stress (chief complaint) Joint Pain-l/legTobacco Use DisorderChronic HepatitisChronic Hepatitis May-0 9-200 6 Warvanessa Burton. [address] [place] [address], [facility], . tel:[phone] [address], [address] [place] [address], tel:[phone] [facility] R leg pain (chief complaint)Sleep Apnea (chief complaint) No Information 0 2-200 6 Jonnievanessa Burton. [address] [place] [address], [facility], . tel:[phone] [address], [id number], tel:[phone] [facility] pill count (chief complaint) No Information Apr-2 8-200 6 No Information [facility] , [address] [place] [address], [id number], [place] tel:[phone] [facility] R knee pain (chief complaint) Joint Pain-l/leg Apr-2 3-200 6 Warvanessa Burton. [address] [place] [address], [facility], [place]. tel:[phone] [address], [address] [place] [address], tel:[phone] [facility] R knee pain (chief complaint)discuss test results (chief complaint)cough (chief complaint) Chronic HepatitisJoint Pain-l/legChronic HepatitisCoughTob acco Use Disorder 6 Warvanessa Burton. [address] [place] [address], [facility], . tel:[phone], [address] [place] [address], tel:[phone] [facility] smoking (chief complaint)headach e (chief complaint) Clssc Migraine/not Intrc 6 Warvanessa Burton. [address] [place] [address], [facility], [place]. tel:[phone] [facility] , [address] [place] [address], [address] [place] [address], tel:[phone] [facility] cough (chief complaint)neb tx (chief complaint) No Information 6 No Information [address], [address] [place] [address], tel:[phone] [facility] leg pain (chief complaint)toradol shot (chief complaint) Joint Dis Nos-pelvisPersist ent Insomnia 5 Sandro Burton. [address] [place] [address], [facility], . tel:[phone] [address], [address] [place] [address], tel:[phone] [facility] cold symptoms (chief complaint)psych (chief complaint) Acute BronchitisAnxiety States 6-200 5 Sandro Burton. [address] [place] [address], [facility], [place]. tel:[phone] [address], [address] [place] [address], tel:[phone] [facility] toe pain (chief complaint) Contusion Of ToeAnxiety States 1200 5 Sandro Burton. [address] [place] [address], [facility], . tel:[phone] [facility] , [address] [place] [address], [address] [place] [address], tel:[phone] [facility] pain (chief complaint) Contusion NosDepressive Disorder NecDrug Abuse Nec-unspec Nov-3 0-200 5 No Information [facility] , [address] [place] [address], [address] [place] [address], tel:[phone] [facility] back pain (chief complaint) Persistent InsomniaTension HeadacheBackache Nos Nov-2 8-200 5 Sandro Burton. [address] [place] [address], [facility], . tel:[phone] [address], [address] [place] [address], tel:[phone] [facility] back pain (chief complaint)Headach e (chief complaint) Backache Nos Nov-1 4-200 5 Sandro Burton. [address] [place] [address], [facility], . tel:[phone] [address] [place] [address], [address] [place] [address], tel:[phone] [facility] headache (chief complaint)neck pain and back pain (chief complaint) Tension HeadacheJoint Dis Nos-pelvisAnxiety States Nov-0 7-200 5 Sandro Burton. [address] [place] [address], [facility], . tel:[phone] [address], [id number], tel:[phone] [facility] headache (chief complaint)medicat ion refill (chief complaint) Tension Headache Nov-0 3-200 5 Sandro Burton. [address] [place] [address], [facility], . tel:[phone] [address], [address] [place] [address], tel:[phone] [facility] leg pain (chief complaint)medicat ion review (chief complaint) Tobacco Use Disorder Oct-2 4-200 5 Sandro Burton. [address] [place] [address], [facility], [place]. tel:[phone] [facility] , [address] [place] [address], [id number], tel:[phone] [facility] Left hip and right knee pain (chief complaint)insomni a (chief complaint)tobacco (chief complaint) Joint Pain-l/legTransie nt Insomnia Oct-0 6-200 5 Warvanessa Wileyne. [address] [place] [address], [facility], [place]. tel:[phone] [address], [id number], tel:[phone] [facility] pain (chief complaint) Joint Pain-l/leg Sep-2 2-200 5 Sandro Burton. [address] [place] [address], [facility], [place]. tel:[phone] [address], [id number], tel:[phone] [facility] R leg pain (chief complaint) Joint Pain-l/legAnxiety State Nec Sep-2 1-200 [address] No Information [address], [id number], [place] tel:[phone] [facility] Stolen Meds (chief complaint) Joint Pain-unspecOpioid Dependence-unspec Sep-1 6-200 [address], [id number], [place] tel:[phone] [facility] knee pain (chief complaint) Joint Pain-l/leg Sep-0 8-200 5 Warvanessa Burton. [address] [place] [address], [facility], . tel:[phone] [address], [address] [place] [address], tel:[phone] [facility] cough (chief complaint)pain (chief complaint)back pain (chief complaint) Joint Pain-l/leg Counts Include [address] [facility]. [address] [place] [address], [facility], . tel:[phone] [facility] , [address] [place] [address], [address] [place] [address], tel:[phone] [facility] stolen meds (chief complaint) Drug Abuse Nec-unspec 5 Josie John. [address] [place] [address], [id number], [place]. tel:[phone] [address], [id number], tel:[phone] [facility] cold symptoms (chief complaint)medicat ion review (chief complaint) Fam Hx-ischem Heart Dis Counts Include [facility]. [address] [place] [address], [facility], . tel:[phone] [address], [address] [place] [address], tel:[phone] [facility] cold symptoms (chief complaint)medicat ion review (chief complaint) Tobacco Use DisorderAsthmaAnx iety StatesAdjustment Reaction NosJoint Dis Nos-pelvis Counts Include [facility]. [address] [place] [address], [facility], . tel:[phone] [address], [id number], tel:[phone] [facility] No Information Counts Include [address] [facility]. [address] [place] [address], [facility], . tel:[phone] Family History Family Member Type Diagnosis Age At Onset Sister Problem (finding) alive and well Mother Problem (finding) [facility] nt Immunizations Vaccine Date Status Comments Influenza administered Source: New Imm unization Record Hep A (adult) administered Source: New Im munization Record Pfizer Bivalent Booster for 12+ administe red Source: New Immunization Record Influenza administered Source: New Imm unization Record COVID-19 Tidwell Top 12+ administered Source : New Immunization Record Pfizer Covid-19 administered Source: New Immunization Record Influenza administered Source: New Imm unization Record Pfizer Covid-19 administered Note: Imms R egistry ; Source: Source Unspecified Pfizer Covid-19 administered Note: uvm tello maya nurse, done at home ; Source: Source Unspecified SHINGRIX administered Source: New Imm unization Record Influenza administered Source: New Imm unization Record SHINGRIX administered Source: New Imm unization Record Tdap administered Source: New Imm unization Record Pneumococcal conjugate PCV 13 administere d Source: Other Provider Pneumococcal polysaccharide PPV23 administered Source: Other Provid er Tdap administered Source: Other P rovider flu (split) (3 yrs or older) administered Source: New Immunization Record flu (split) (3 yrs or older) administered Source: New Immunization Record Influenza virus vaccine administered Sour ce: New Immunization Record Payers Payer name Insurance type Covered constitution party ID Authoriza tion(s) Medicare NGS 2010 MB [id number] [place] 2879 [place] NGS 2010 MB [id number] [place] 2879 Medicare NGS 2010 MB [id number] [place] 2879 [place] NGS 2010 MB [id number] [place] 2879 [place] NGS 2010 MB [id number] [place] 2879 Medicare NGS 2010 MB [id number] [place] 2879 Medicare NGS 2010 MB [id number] [place] 2879 Medicare NGS 2010 MB [id number] Medicaid [facility] [facility] Medicare NGS 2010 MB [id number] Medicaid Crossover [facility] Medicare NGS 2010 MB [id number] Medicaid Cros[facility] Medicare NGS 2010 [id number] [facility] Social History Type Description Quantity Date Captured Comments Alcohol Use Details Unknown Caffeine Use Details Unknown Tobacco Use Status Smoking Status No Information Sex Female Sexual Orientation Choose not to disclose Gender Identity Choose not to disclose Chief Complaint And Reason For Visit No Information Plan Of Treatment Date Type Action Status Goal Dilated eye exam . Due on due Goal HEPATITIS C AB TEST due Goal Colonoscopy. Due on 029 due Goal Zoster vaccine (1st) due Goal Dietitian. Due on due Goal FOBT. Due on due Goal Depression scree domenic. Due on due Goal Annual PE. Due on due Goal INFLUENZA. Due on 4 due Goal BMI Physical Edu cation counseling documented in Health Promotion Plan. Due on due Goal PCV13. Due on du e Goal ASCVD 10 year ri sk. Due on due Goal BMI counseling d ocumented in Health Promotion Plan. Due on due Goal BMI Nutrition co unseling documented in Health Promotion Plan. Due on due Goal HIV-1 AG W/HIV-1 & HIV-2 AB due Goal Diabetes Screeni ng. Due on due Goal Zoster vaccine (2nd) due Goal Hepatitis C screening due Goal ThinPrep Pap w/ HPV. Due on due Goal Foot exam. Due on due Goal Thyroid Stim Hormone due Goal Urine microalbum in. Due on due Goal Hemoglobin A1C. Due on due Goal Unhealthy drug u se screening. Due on due Goal Lipid panel. Due on due Goal Lipid Panel. Due on due Goal Thyroid Stim Hormone due Goal BMI Nutrition co unseling documented in Health Promotion Plan. Due on due Goal HEPATITIS C AB TEST due Goal ThinPrep Pap w/ HPV. Due on due Goal Dilated eye exam . Due on due Goal Unhealthy drug u se screening. Due on due Goal Diabetes Screeni ng. Due on due Goal Depression scree domenic. Due on due Goal BMI Physical Edu cation counseling documented in Health Promotion Plan. Due on due Goal ASCVD 10 year ri sk. Due on due Goal Zoster vaccine (1st) due Goal Colonoscopy. Due on 029 due Goal FOBT. Due on due Goal Dietitian. Due on due Goal PCV13. Due on du e Goal HIV-1 AG W/HIV-1 & HIV-2 AB due Goal INFLUENZA. Due on 4 due Goal Urine microalbum in. Due on due Goal Hepatitis C screening due Goal Hemoglobin A1C. Due on due Goal BMI counseling d ocumented in Health Promotion Plan. Due on due Goal Foot exam. Due on due Goal Annual PE. Due on due Goal Zoster vaccine (2nd) due Goal Lipid Panel. Due on due Goal Lipid panel. Due on due Goal PCV13. Due on du e Goal Zoster vaccine () due Goal BMI counseling d ocumented in Health Promotion Plan. Due on due Goal FOBT. Due on due Goal Dilated eye exam . Due on due Goal Zoster vaccine (1st) due Goal ThinPrep Pap w/ HPV. Due on due Goal Depression scree domenic. Due on due Goal BMI Physical Edu cation counseling documented in Health Promotion Plan. Due on due Goal INFLUENZA. Due on 4 due Goal Annual PE. Due on due Goal Unhealthy drug u se screening. Due on due Goal ASCVD 10 year ri sk. Due on due Goal Colonoscopy. Due on 029 due Goal HEPATITIS C AB TEST due Goal Hepatitis C screening due Goal BMI Nutrition co unseling documented in Health Promotion Plan. Due on due Goal Diabetes Screeni ng. Due on due Goal HIV-1 AG W/HIV-1 & HIV-2 AB due Goal Foot exam. Due on 4 due Goal Hemoglobin A1C. Due on due Goal Urine microalbum in. Due on due Goal Thyroid Stim Hormone due Goal Dietitian. Due on 4 due Goal Zoster vaccine (1st) due Goal Thyroid Stim Hormone due Goal Depression scree domenic. Due on due Goal Foot exam. Due on 3 due Goal PCV13 due Goal Colonoscopy. Due on 029 due Goal Dietitian. Due on 3 due Goal BMI counseling d ocumented in Health Promotion Plan. Due on due Goal Diabetes Screeni ng. Due on due Goal Urine microalbum in. Due on due Goal FOBT. Due on due Goal Annual PE. Due on 3 due Goal ThinPrep Pap w/ HPV. Due on due Goal Hemoglobin A1C. Due on due Goal HEPATITIS C AB TEST due Goal HIV-1 AG W/HIV-1 & HIV-2 AB due Goal Dilated eye exam . Due on due Goal Lipid Panel. Due on 024 due Goal Zoster vaccine (2nd) due Goal Chlamydia/GC Amplification d ue Goal INFLUENZA. Due on 4 due Goal ASCVD 10 year ri sk. Due on due Goal Lipid panel. Due on due Goal Lipid panel. Due on due Goal Lipid Panel. Due on due Goal Colonoscopy. Due on due Goal Zoster vaccine (2nd) due Goal Urine microalbum in. Due on due Goal Hemoglobin A1C. Due on due Goal BMI counseling d ocumented in Health Promotion Plan. Due on due Goal Depression scree domenic. Due on due Goal HEPATITIS C AB TEST due Goal Foot exam. Due on 3 due Goal Annual PE. Due on 3 due Goal PCV13 due Goal ASCVD 10 year ri sk. Due on due Goal Dietitian. Due on 3 due Goal Dilated eye exam . Due on due Goal Thyroid Stim Hormone due Goal Zoster vaccine (1st) due Goal Diabetes Screeni ng. Due on due Goal HIV-1 AG W/HIV-1 & HIV-2 AB due Goal ThinPrep Pap w/ HPV. Due on due Goal Chlamydia/GC Amplification d ue Goal INFLUENZA. Due on due Goal FOBT. Due on due Goal BMI counseling d ocumented in Health Promotion Plan. Due on due Goal INFLUENZA. Due on due Goal Colonoscopy. Due on 029 due Goal FOBT. Due on due Goal Dilated eye exam . Due on due Goal Urine microalbum in. Due on due Goal Dietitian. Due on due Goal Hemoglobin A1C. Due on due Goal Thyroid Stim Hormone due Goal Diabetes Screeni ng. Due on due Goal Zoster vaccine (2nd) due Goal Foot exam. Due on due Goal ASCVD 10 year ri sk. Due on due Goal HEPATITIS C AB TEST due Goal Zoster vaccine (1st) due Goal ThinPrep Pap w/ HPV. Due on due Goal Depression scree domenic. Due on due Goal Annual PE. Due on due Goal PCV13 due Goal HIV-1 AG W/HIV-1 & HIV-2 AB due Goal Lipid Panel. Due on due Goal Chlamydia/GC Amplification d ue Goal Lipid panel. Due on due Goal Hemoglobin A1C. Due on due Goal Thyroid Stim Hormone due Goal Dietitian. Due on due Goal PCV13 due Goal Dilated eye exam . Due on due Goal Diabetes Screeni ng. Due on due Goal Colonoscopy. Due on due Goal BMI counseling d ocumented in Health Promotion Plan. Due on due Goal HIV-1 AG W/HIV-1 & HIV-2 AB due Goal Depression scree domenic. Due on due Goal Urine microalbum in. Due on due Goal ASCVD 10 year ri sk. Due on due Goal Foot exam. Due on due Goal Zoster vaccine (1st) due Goal Annual PE. Due on due Goal INFLUENZA. Due on due Goal HEPATITIS C AB TEST due Goal Zoster vaccine (2nd) due Goal ThinPrep Pap w/ HPV. Due on due Goal FOBT. Due on due Goal Lipid panel. Due on due Goal Lipid Panel. Due on due Goal Chlamydia/GC Amplification d ue Goal HIV-1 AG W/HIV-1 & HIV-2 AB due Goal HEPATITIS C AB TEST due Goal Dietitian. Due on due Goal Annual PE. Due on due Goal Diabetes Screeni ng. Due on due Goal Colonoscopy. Due on due Goal FOBT. Due on due Goal BMI counseling d ocumented in Health Promotion Plan. Due on due Goal Hemoglobin A1C. Due on due Goal PCV13 due Goal ThinPrep Pap w/ HPV. Due on due Goal Thyroid Stim Hormone due Goal Dilated eye exam . Due on due Goal Depression scree domenic. Due on due Goal INFLUENZA. Due on 3 due Goal Zoster vaccine (1st) due Goal Foot exam. Due on 3 due Goal Urine microalbum in. Due on due Goal ASCVD 10 year ri sk. Due on due Goal Lipid panel. Due on due Goal Chlamydia/GC Amplification d ue Goal Zoster vaccine (2nd) due Goal Lipid Panel. Due on 024 due Goal Urine microalbum in. Due on due Goal HEPATITIS C AB TEST due Goal Annual PE. Due on 3 due Goal Foot exam. Due on 3 due Goal Colonoscopy. Due on 029 due Goal INFLUENZA. Due on 3 due Goal Thyroid Stim Hormone due Goal Dilated eye exam . Due on due Goal Dietitian. Due on due Goal Hemoglobin A1C. Due on due Goal Diabetes Screeni ng. Due on due Goal PCV13 due Goal Depression scree domenic. Due on due Goal Zoster vaccine (1st) due Goal HIV-1 AG W/HIV-1 & HIV-2 AB due Goal Zoster vaccine (2nd) due Goal FOBT. Due on due Goal Chlamydia/GC Amplification d ue Goal Lipid Panel. Due on due Goal ThinPrep Pap w/ HPV. Due on due Goal ASCVD 10 year ri sk. Due on due Goal BMI counseling d ocumented in Health Promotion Plan. Due on due Goal Lipid panel. Due on due Goal Lipid Panel. Due on due Goal Lipid panel. Due on due Goal PCV13 due Goal Dilated eye exam . Due on due Goal Diabetes Screeni ng. Due on due Goal Colonoscopy. Due on due Goal Zoster vaccine (1st) due Goal Thyroid Stim Hormone due Goal INFLUENZA. Due on 3 due Goal Annual PE. Due on 3 due Goal Foot exam. Due on 3 due Goal ASCVD 10 year ri sk. Due on due Goal Hemoglobin A1C. Due on due Goal Dietitian. Due on 3 due Goal FOBT. Due on due Goal HIV-1 AG W/HIV-1 & HIV-2 AB due Goal Depression scree domenic. Due on due Goal HEPATITIS C AB TEST due Goal ThinPrep Pap w/ HPV. Due on due Goal Zoster vaccine (2nd) due Goal BMI counseling d ocumented in Health Promotion Plan. Due on due Goal Urine microalbum in. Due on due Goal Chlamydia/GC Amplification d ue Goal Dietitian. Due on 3 due Goal Diabetes Screeni ng. Due on due Goal Urine microalbum in. Due on due Goal Dilated eye exam . Due on due Goal Zoster vaccine (1st) due Goal ASCVD 10 year ri sk. Due on due Goal HEPATITIS C AB TEST due Goal Hemoglobin A1C. Due on due Goal Colonoscopy. Due on 029 due Goal INFLUENZA. Due on 3 due Goal HIV-1 AG W/HIV-1 & HIV-2 AB due Goal ThinPrep Pap w/ HPV. Due on due Goal BMI counseling d ocumented in Health Promotion Plan. Due on due Goal FOBT. Due on due Goal Zoster vaccine (2nd) due Goal Depression scree domenic. Due on due Goal PCV13 due Goal Annual PE. Due on 3 due Goal Foot exam. Due on 3 due Goal Thyroid Stim Hormone due Goal Zoster vaccine (2nd) due Goal Depression scree domenic. Due on due Goal Mammogram. Due on 7 due Goal ThinPrep Pap w/ HPV. Due on due Goal HEPATITIS C AB TEST due Goal Lipid panel. Due on due Goal Colonoscopy. Due on due Goal Diabetes Screeni ng. Due on due Goal ASCVD 10 year ri sk. Due on due Goal Annual PE. Due on due Goal Dilated eye exam . Due on due Goal Thyroid Stim Hormone due Goal Hemoglobin A1C. Due on due Goal FOBT. Due on due Goal Chlamydia/GC Amplification d ue Goal INFLUENZA. Due on due Goal PCV13 due Goal Lipid Panel. Due on due Goal HIV-1 AG W/HIV-1 & HIV-2 AB due Goal BMI counseling d ocumented in Health Promotion Plan. Due on due Goal Foot exam. Due on due Goal Urine microalbum in. Due on due Goal Dietitian. Due on due Goal Zoster vaccine (1st) due Goal Lipid Panel. Due on due Goal Lipid panel. Due on due Goal Lipid Panel. Due on due Goal Lipid panel. Due on 024 due Goal Chlamydia/GC Amplification d ue Goal Dietitian. Due on due Goal Dilated eye exam . Due on due Goal Zoster vaccine (2nd) due Goal Colonoscopy. Due on 029 due Goal Thyroid Stim Hormone due Goal HIV-1 AG W/HIV-1 & HIV-2 AB due Goal Annual PE. Due on due Goal Urine microalbum in. Due on due Goal Diabetes Screeni ng. Due on due Goal PCV13 due Goal Foot exam. Due on due Goal Hemoglobin A1C. Due on due Goal BMI counseling d ocumented in Health Promotion Plan. Due on due Goal Zoster vaccine (1st) due Goal Depression scree domenic. Due on due Goal ThinPrep Pap w/ HPV. Due on due Goal Mammogram. Due on 7 due Goal FOBT. Due on due Goal INFLUENZA. Due on 3 due Goal HEPATITIS C AB TEST due Goal ASCVD 10 year ri sk. Due on due Goal Mammogram. Due on 7 due Goal FOBT. Due on due Goal Dietitian. Due on 3 due Goal Hemoglobin A1C. Due on due Goal Depression scree domenic. Due on due Goal Thyroid Stim Hormone due Goal Zoster vaccine (1st) due Goal Zoster vaccine (2nd) due Goal Foot exam. Due on due Goal ThinPrep Pap w/ HPV. Due on due Goal INFLUENZA. Due on 3 due Goal Urine microalbum in. Due on due Goal Chlamydia/GC Amplification d ue Goal Dilated eye exam . Due on due Goal Colonoscopy. Due on 029 due Goal HEPATITIS C AB TEST due Goal PCV13 due Goal HIV-1 AG W/HIV-1 & HIV-2 AB due Goal Diabetes Screeni ng. Due on due Goal Annual PE. Due on due Goal ASCVD 10 year ri sk. Due on due Goal BMI counseling d ocumented in Health Promotion Plan. Due on due Goal Chlamydia/GC Amplification d ue Goal ThinPrep Pap w/ HPV. Due on due Goal BMI counseling d ocumented in Health Promotion Plan. Due on due Goal HEPATITIS C AB TEST due Goal Depression scree domenic. Due on due Goal INFLUENZA. Due on 3 due Goal Zoster vaccine (2nd) due Goal Diabetes Screeni ng. Due on due Goal Mammogram. Due on 7 due Goal Annual PE. Due on 3 due Goal PCV13 due Goal Colonoscopy. Due on 029 due Goal Thyroid Stim Hormone due Goal HIV-1 AG W/HIV-1 & HIV-2 AB due Goal Hemoglobin A1C. Due on due Goal Dilated eye exam . Due on due Goal Urine microalbum in. Due on due Goal Foot exam. Due on due Goal Dietitian. Due on due Goal Zoster vaccine (1st) due Goal ASCVD 10 year ri sk. Due on due Goal Lipid panel. Due on due Goal Chlamydia/GC Amplification d ue Goal Lipid Panel. Due on due Goal Hemoglobin A1C. Due on due Goal Colonoscopy. Due on due Goal PCV13 due Goal INFLUENZA. Due on 3 due Goal Annual PE. Due on due Goal Mammogram. Due on 7 due Goal HIV-1 AG W/HIV-1 & HIV-2 AB due Goal Diabetes Screeni ng. Due on due Goal HEPATITIS C AB TEST due Goal ASCVD 10 year ri sk. Due on due Goal BMI counseling d ocumented in Health Promotion Plan. Due on due Goal Zoster vaccine (1st) due Goal ThinPrep Pap w/ HPV. Due on due Goal Zoster vaccine (2nd) due Goal Dilated eye exam . Due on due Goal Foot exam. Due on 3 due Goal Urine microalbum in. Due on due Goal Depression scree domenic. Due on due Goal Dietitian. Due on 3 due Goal Thyroid Stim Hormone due Goal Lipid panel. Due on due Goal Lipid Panel. Due on due Goal INFLUENZA. Due on 3 due Goal ASCVD 10 year ri sk. Due on due Goal Diabetes Screeni ng. Due on due Goal Chlamydia/GC Amplification d ue Goal ThinPrep Pap w/ HPV. Due on due Goal Mammogram. Due on 7 due Goal HEPATITIS C AB TEST due Goal Zoster vaccine (1st) due Goal HIV-1 AG W/HIV-1 & HIV-2 AB due Goal Foot exam. Due on 3 due Goal Dietitian. Due on 3 due Goal Urine microalbum in. Due on due Goal Annual PE. Due on 3 due Goal BMI counseling d ocumented in Health Promotion Plan. Due on due Goal PCV13 due Goal Dilated eye exam . Due on due Goal Colonoscopy. Due on due Goal Hemoglobin A1C. Due on due Goal Depression scree domenic. Due on due Goal Zoster vaccine (2nd) due Goal Thyroid Stim Hormone due Goal Lipid Panel. Due on due Goal Chlamydia/GC Amplification d ue Goal Lipid panel. Due on due Goal Dilated eye exam . Due on due Goal Foot exam. Due on due Goal Urine microalbum in. Due on due Goal Thyroid Stim Hormone due Goal ThinPrep Pap w/ HPV. Due on due Goal Zoster vaccine (1st) due Goal Hemoglobin A1C. Due on due Goal Mammogram. Due on due Goal Dietitian. Due on due Goal PCV13 due Goal Zoster vaccine (2nd) due Goal HEPATITIS C AB TEST due Goal Depression scree domenic. Due on due Goal BMI counseling d ocumented in Health Promotion Plan. Due on due Goal HIV-1 AG W/HIV-1 & HIV-2 AB due Goal Colonoscopy. Due on due Goal Annual PE. Due on due Goal ASCVD 10 year ri sk. Due on due Goal INFLUENZA. Due on 3 due Goal Diabetes Screeni ng. Due on due Goal Chlamydia/GC Amplification d ue Goal Lipid panel. Due on 023 due Goal Lipid Panel. Due on 023 due Goal Foot exam. Due on 2 due Goal Hemoglobin A1C. Due on due Goal Urine microalbum in. Due on due Goal Zoster vaccine () due Goal Colonoscopy. Due on 029 due Goal BMI counseling d ocumented in Health Promotion Plan. Due on due Goal HIV-1 AG W/HIV-1 & HIV-2 AB due Goal PCV13 due Goal Diabetes Screeni ng. Due on due Goal ThinPrep Pap w/ HPV. Due on due Goal Mammogram. Due on 7 due Goal INFLUENZA. Due on 3 due Goal Depression scree domenic. Due on due Goal ASCVD 10 year ri sk. Due on due Goal Zoster vaccine (1st) due Goal Thyroid Stim Hormone due Goal HEPATITIS C AB TEST due Goal Dietitian. Due on 2 due Goal Annual PE. Due on 2 due Goal Dilated eye exam . Due on due Goal Lipid Panel. Due on 023 due Goal Lipid panel. Due on 023 due Goal Chlamydia/GC Amplification d ue Goal Lipid Panel. Due on 023 due Goal Lipid panel. Due on 023 due Goal Foot exam. Due on 2 due Goal Hemoglobin A1C. Due on due Goal Dietitian. Due on 2 due Goal Thyroid Stim Hormone due Goal Urine microalbum in. Due on due Goal Annual PE. Due on 2 due Goal Dilated eye exam . Due on due Goal BMI counseling d ocumented in Health Promotion Plan. Due on due Goal Depression scree domenic. Due on due Goal HIV-1 AG W/HIV-1 & HIV-2 AB due Goal Mammogram. Due on 7 due Goal HEPATITIS C AB TEST due Goal Zoster vaccine (2nd) due Goal ASCVD 10 year ri sk. Due on due Goal ThinPrep Pap w/ HPV. Due on due Goal PCV13 due Goal Zoster vaccine (1st) due Goal INFLUENZA. Due on 3 due Goal Colonoscopy. Due on 029 due Goal Diabetes Screeni ng. Due on due Goal Urine microalbum in. Due on due Goal ASCVD 10 year ri sk. Due on due Goal Dietitian. Due on 2 due Goal Thyroid Stim Hormone due Goal Dilated eye exam . Due on due Goal Foot exam. Due on 2 due Goal Hemoglobin A1C. Due on due Goal Zoster vaccine (2nd) due Goal Annual PE. Due on 2 due Goal INFLUENZA. Due on 3 due Goal Chlamydia/GC Amplification d ue Goal HEPATITIS C AB TEST due Goal BMI counseling d ocumented in Health Promotion Plan. Due on due Goal Colonoscopy. Due on 029 due Goal HIV-1 AG W/HIV-1 & HIV-2 AB due Goal Zoster vaccine (1st) due Goal Depression scree domenic. Due on due Goal Mammogram. Due on 7 due Goal Diabetes Screeni ng. Due on due Goal PCV13 due Goal ThinPrep Pap w/ HPV. Due on due Goal Lipid Panel. Due on 023 due Goal Lipid panel. Due on 023 due Goal Zoster vaccine (2nd) due Goal Diabetes Screeni ng. Due on due Goal HIV-1 AG W/HIV-1 & HIV-2 AB due Goal Annual PE. Due on 2 due Goal PCV13 due Goal ThinPrep Pap w/ HPV. Due on due Goal BMI counseling d ocumented in Health Promotion Plan. Due on due Goal Mammogram. Due on 7 due Goal Dilated eye exam . Due on due Goal Foot exam. Due on 2 due Goal Zoster vaccine (1st) due Goal Urine microalbum in. Due on due Goal Thyroid Stim Hormone due Goal HEPATITIS C AB TEST due Goal INFLUENZA. Due on due Goal Hemoglobin A1C. Due on due Goal Dietitian. Due on 2 due Goal Depression scree domenic. Due on due Goal Colonoscopy. Due on 029 due Goal ASCVD 10 year ri sk. Due on due Goal Chlamydia/GC Amplification d ue Goal Lipid Panel. Due on 023 due Goal Lipid panel. Due on 023 due Goal Chlamydia/GC Amplification d ue Goal ASCVD 10 year ri sk. Due on due Goal HEPATITIS C AB TEST due Goal Annual PE. Due on 2 due Goal Zoster vaccine (2nd) due Goal Zoster vaccine (1st) due Goal Urine microalbum in. Due on due Goal PCV13 due Goal Hemoglobin A1C. Due on due Goal Dilated eye exam . Due on due Goal Colonoscopy. Due on 029 due Goal Diabetes Screeni ng. Due on due Goal INFLUENZA. Due on 3 due Goal ThinPrep Pap w/ HPV. Due on due Goal Foot exam. Due on 2 due Goal Dietitian. Due on 2 due Goal Thyroid Stim Hormone due Goal Depression scree domenic. Due on due Goal Mammogram. Due on 7 due Goal BMI counseling d ocumented in Health Promotion Plan. Due on due Goal HIV-1 AG W/HIV-1 & HIV-2 AB due Goal Lipid Panel. Due on 023 due Goal Lipid panel. Due on 023 due Goal PCV13 due Goal Depression scree domenic. Due on due Goal Mammogram. Due on 7 due Goal HIV-1 AG W/HIV-1 & HIV-2 AB due Goal Hemoglobin A1C. Due on due Goal Zoster vaccine (1st) due Goal Thyroid Stim Hormone due Goal INFLUENZA. Due on 3 due Goal Dietitian. Due on 2 due Goal ThinPrep Pap w/ HPV. Due on due Goal Diabetes Screeni ng. Due on due Goal Urine microalbum in. Due on due Goal Zoster vaccine (2nd) due Goal Foot exam. Due on 2 due Goal Colonoscopy. Due on 029 due Goal Annual PE. Due on 2 due Goal Dilated eye exam . Due on due Goal ASCVD 10 year ri sk. Due on due Goal BMI counseling d ocumented in Health Promotion Plan. Due on due Goal Chlamydia/GC Amplification d ue Goal HEPATITIS C AB TEST due Goal Urine microalbum in. Due on due Goal Dietitian. Due on 2 due Goal BMI counseling d ocumented in Health Promotion Plan. Due on due Goal HEPATITIS C AB TEST due Goal Mammogram. Due on 7 due Goal Annual PE. Due on 2 due Goal Depression scree domenic. Due on due Goal ASCVD 10 year ri sk. Due on due Goal Colonoscopy. Due on 029 due Goal PCV13 due Goal Thyroid Stim Hormone due Goal Dilated eye exam . Due on due Goal Zoster vaccine (1st) due Goal Foot exam. Due on 2 due Goal Hemoglobin A1C. Due on due Goal ThinPrep Pap w/ HPV. Due on due Goal Zoster vaccine (2nd) due Goal HIV-1 AG W/HIV-1 & HIV-2 AB due Goal INFLUENZA. Due on 3 due Goal Diabetes Screeni ng. Due on due Goal Depression scree domenic. Due on due Goal BMI counseling d ocumented in Health Promotion Plan. Due on due Goal Zoster vaccine (2nd) due Goal Urine microalbum in. Due on due Goal Thyroid Stim Hormone due Goal ThinPrep Pap w/ HPV. Due on due Goal Zoster vaccine (1st) due Goal Mammogram. Due on 7 due Goal ASCVD 10 year ri sk. Due on due Goal Annual PE. Due on 2 due Goal Diabetes Screeni ng. Due on due Goal Dietitian. Due on 2 due Goal PCV13 due Goal Foot exam. Due on 2 due Goal Dilated eye exam . Due on due Goal INFLUENZA. Due on 3 due Goal HIV-1 AG W/HIV-1 & HIV-2 AB due Goal Hemoglobin A1C. Due on due Goal Chlamydia/GC Amplification d ue Goal Colonoscopy. Due on 029 due Goal HEPATITIS C AB TEST due Goal Urine microalbum in. Due on due Goal Diabetes Screeni ng. Due on due Goal HEPATITIS C AB TEST due Goal Foot exam. Due on 2 due Goal Depression scree domenic. Due on due Goal Zoster vaccine (1st) due Goal Dietitian. Due on 2 due Goal Mammogram. Due on 7 due Goal Hemoglobin A1C. Due on due Goal Dilated eye exam . Due on due Goal Colonoscopy. Due on 029 due Goal INFLUENZA. Due on 3 due Goal HIV-1 AG W/HIV-1 & HIV-2 AB due Goal ThinPrep Pap w/ HPV. Due on due Goal Annual PE. Due on 2 due Goal PCV13 due Goal Zoster vaccine () due Goal Thyroid Stim Hormone due Goal BMI counseling d ocumented in Health Promotion Plan. Due on due Goal ASCVD 10 year ri sk. Due on due Goal Lipid Panel. Due on 023 due Goal Chlamydia/GC Amplification d ue Goal Lipid panel. Due on 023 due Goal Lipid panel. Due on 023 due Goal Lipid Panel. Due on 023 due Goal Chlamydia/GC Amplification d ue Goal Dietitian. Due on 2 due Goal Dilated eye exam . Due on due Goal PCV13 due Goal Urine microalbum in. Due on due Goal INFLUENZA. Due on 2 due Goal Mammogram. Due on 7 due Goal ASCVD 10 year ri sk. Due on due Goal HEPATITIS C AB TEST due Goal Foot exam. Due on 2 due Goal ThinPrep Pap w/ HPV. Due on due Goal Thyroid Stim Hormone due Goal Zoster vaccine (2nd) due Goal Depression scree domenic. Due on due Goal Diabetes Screeni ng. Due on due Goal BMI counseling d ocumented in Health Promotion Plan. Due on due Goal Colonoscopy. Due on 029 due Goal HIV-1 AG W/HIV-1 & HIV-2 AB due Goal Annual PE. Due on due Goal Zoster vaccine (1st) due Goal Chlamydia/GC Amplification d ue Goal Lipid Panel. Due on 023 due Goal Lipid panel. Due on 023 due Goal ThinPrep Pap w/ HPV. Due on due Goal PCV13 due Goal HEPATITIS C AB TEST due Goal Urine microalbum in. Due on due Goal Thyroid Stim Hormone due Goal Diabetes Screeni ng. Due on due Goal Depression scree domenic. Due on due Goal Mammogram. Due on due Goal Annual PE. Due on due Goal HIV-1 AG W/HIV-1 & HIV-2 AB due Goal Dilated eye exam . Due on due Goal Zoster vaccine (2nd) due Goal Hemoglobin A1C. Due on due Goal INFLUENZA. Due on 2 due Goal ASCVD 10 year ri sk. Due on due Goal Dietitian. Due on due Goal Colonoscopy. Due on 029 due Goal BMI counseling d ocumented in Health Promotion Plan. Due on due Goal Foot exam. Due on due Goal Zoster vaccine (1st) due Goal Chlamydia/GC Amplification d ue Goal Lipid Panel. Due on due Goal Lipid panel. Due on due Goal Mammogram. Due on due Goal Thyroid Stim Hormone due Goal ASCVD 10 year ri sk. Due on due Goal BMI counseling d ocumented in Health Promotion Plan. Due on due Goal Zoster vaccine (1st) due Goal Diabetes Screeni ng. Due on due Goal Annual PE. Due on due Goal ThinPrep Pap w/ HPV. Due on due Goal Zoster vaccine (2nd) due Goal Dietitian. Due on 2 due Goal Depression scree domenic. Due on due Goal INFLUENZA. Due on due Goal Dilated eye exam . Due on due Goal Hemoglobin A1C. Due on due Goal Colonoscopy. Due on due Goal Foot exam. Due on due Goal HIV-1 AG W/HIV-1 & HIV-2 AB due Goal HEPATITIS C AB TEST due Goal PCV13 due Goal Foot exam. Due on 2 due Goal HEPATITIS C AB TEST due Goal ThinPrep Pap w/ HPV. Due on due Goal BMI counseling d ocumented in Health Promotion Plan. Due on due Goal Zoster vaccine (2nd) due Goal Mammogram. Due on 1 due Goal Annual PE. Due on 2 due Goal Thyroid Stim Hormone due Goal Dilated eye exam . Due on due Goal Diabetes Screeni ng. Due on due Goal HIV-1 AG W/HIV-1 & HIV-2 AB due Goal Depression scree domenic. Due on due Goal Zoster vaccine (1st) due Goal PCV13 due Goal Colonoscopy. Due on 029 due Goal Dietitian. Due on 2 due Goal INFLUENZA. Due on 2 due Goal Hemoglobin A1C. Due on due Goal CT low dose, clint g cancer screen. Due on due Goal Lipid panel. Due on 023 due Goal Chlamydia/GC Amplification d ue Goal Lipid Panel. Due on 023 due Goal Zoster vaccine (2nd) due Goal HIV-1 AG W/HIV-1 & HIV-2 AB due Goal Dietitian. Due on 2 due Goal Zoster vaccine (1st) due Goal Hemoglobin A1C. Due on due Goal INFLUENZA. Due on 2 due Goal Foot exam. Due on due Goal Mammogram. Due on due Goal ThinPrep Pap w/ HPV. Due on due Goal BMI counseling d ocumented in Health Promotion Plan. Due on due Goal Diabetes Screeni ng. Due on due Goal PCV13 due Goal Annual PE. Due on due Goal Colonoscopy. Due on 029 due Goal HEPATITIS C AB TEST due Goal Depression scree domenic. Due on due Goal Dilated eye exam . Due on due Goal Thyroid Stim Hormone due Goal CT low dose, clint g cancer screen. Due on due Goal Lipid panel. Due on 023 due Goal Lipid Panel. Due on 023 due Goal Chlamydia/GC Amplification d ue Goal Hemoglobin A1C. Due on due Goal Dietitian. Due on 2 due Goal Zoster vaccine (2nd) due Goal HIV-1 AG W/HIV-1 & HIV-2 AB due Goal Thyroid Stim Hormone due Goal Foot exam. Due on due Goal Dilated eye exam . Due on due Goal Diabetes Screeni ng. Due on due Goal Colonoscopy. Due on due Goal Annual PE. Due on 2 due Goal BMI counseling d ocumented in Health Promotion Plan. Due on due Goal Depression scree domenic. Due on due Goal INFLUENZA. Due on [address] low dose, clint g cancer screen. Due on due Goal Mammogram. Due on 1 due Goal HEPATITIS C AB TEST due Goal PCV13 due Goal Zoster vaccine () due Goal ThinPrep Pap w/ HPV. Due on due Goal Lipid panel. Due on due Goal Lipid Panel. Due on due Goal HIV-1 AG W/HIV-1 & HIV-2 AB due Goal Dietitian. Due on due Goal ThinPrep Pap w/ HPV. Due on due Goal Dilated eye exam . Due on due Goal Annual PE. Due on due Goal Depression scree domenic. Due on due Goal Foot exam. Due on 2 due Goal BMI counseling d ocumented in Health Promotion Plan. Due on due Goal Colonoscopy. Due on due Goal Zoster vaccine () due Goal HEPATITIS C AB TEST due Goal Diabetes Screeni ng. Due on due Goal Chlamydia/GC Amplification d ue Goal INFLUENZA. Due on 2 due Goal Thyroid Stim Hormone due Goal PCV13 due Goal Mammogram. Due on 1 due Goal Zoster vaccine (2nd) due Goal CT low dose, clint g cancer screen. Due on due Goal BMI counseling d ocumented in Health Promotion Plan. Due on due Goal Dilated eye exam . Due on due Goal Colonoscopy. Due on due Goal Foot exam. Due on due Goal Zoster vaccine (1st) due Goal Dietitian. Due on 2 due Goal Thyroid Stim Hormone due Goal INFLUENZA. Due on 2 due Goal Diabetes Screeni ng. Due on due Goal Mammogram. Due on 1 due Goal PCV13 due Goal Zoster vaccine (2nd) due Goal CT low dose, clint g cancer screen. Due on due Goal Chlamydia/GC Amplification d ue Goal HIV-1 AG W/HIV-1 & HIV-2 AB due Goal Depression scree domenic. Due on due Goal HEPATITIS C AB TEST due Goal ThinPrep Pap w/ HPV. Due on due Goal Annual PE. Due on due Goal Lipid panel. Due on due Goal Lipid Panel. Due on due Goal Chlamydia/GC Amplification d ue Goal Zoster vaccine (1st) due Goal PCV13 due Goal Thyroid Stim Hormone due Goal Diabetes Screeni ng. Due on due Goal HIV-1 AG W/HIV-1 & HIV-2 AB due Goal Dietitian. Due on 2 due Goal BMI counseling d ocumented in Health Promotion Plan. Due on due Goal Dilated eye exam . Due on due Goal Zoster vaccine (2nd) due Goal Annual PE. Due on 2 due Goal Hemoglobin A1C. Due on due Goal HEPATITIS C AB TEST due Goal CT low dose, clint g cancer screen. Due on due Goal Colonoscopy. Due on 029 due Goal INFLUENZA. Due on 2 due Goal Depression scree domenic. Due on due Goal Mammogram. Due on 1 due Goal ThinPrep Pap w/ HPV. Due on due Goal Foot exam. Due on 2 due Goal Chlamydia/GC Amplification d ue Goal Lipid panel. Due on due Goal Lipid Panel. Due on 022 due Goal Diabetes Screeni ng. Due on due Goal Dietitian. Due on 2 due Goal BMI counseling d ocumented in Health Promotion Plan. Due on due Goal Dilated eye exam . Due on due Goal Foot exam. Due on 2 due Goal Depression scree domenic. Due on due Goal HIV-1 AG W/HIV-1 & HIV-2 AB due Goal HEPATITIS C AB TEST due Goal Zoster vaccine (1st) due Goal INFLUENZA. Due on 2 due Goal Hemoglobin A1C. Due on due Goal Thyroid Stim Hormone due Goal ThinPrep Pap w/ HPV. Due on due Goal PCV13 due Goal Annual PE. Due on 2 due Goal Mammogram. Due on due Goal Zoster vaccine () due Goal CT low dose, clint g cancer screen. Due on due Goal Colonoscopy. Due on due Goal Annual PE. Due on due Goal Zoster vaccine (1st) due Goal BMI counseling d ocumented in Health Promotion Plan. Due on due Goal ThinPrep Pap w/ HPV. Due on due Goal Diabetes Screeni ng. Due on due Goal HEPATITIS C AB TEST due Goal Mammogram. Due on due Goal PCV13 due Goal Chlamydia/GC Amplification d ue Goal HIV-1 AG W/HIV-1 & HIV-2 AB due Goal Zoster vaccine (2nd) due Goal Depression scree domenic. Due on due Goal Colonoscopy. Due on due Goal Lipid Panel. Due on due Goal INFLUENZA. Due on due Goal CT low dose, clint g cancer screen. Due on due Goal Lipid panel. Due on due Goal Foot exam. Due on due Goal Dilated eye exam . Due on due Goal Dietitian. Due on due Goal Thyroid Stim Hormone due Goal Hemoglobin A1C. Due on due Goal Lipid panel. Due on due Goal Lipid Panel. Due on due Goal Dilated eye exam . Due on due Goal HIV-1 AG W/HIV-1 & HIV-2 AB due Goal Dietitian. Due on due Goal Hemoglobin A1C. Due on due Goal Foot exam. Due on due Goal Thyroid Stim Hormone due Goal Zoster vaccine (2nd) due Goal Chlamydia/GC Amplification d ue Goal INFLUENZA. Due on 2 due Goal Annual PE. Due on due Goal CT low dose, clint g cancer screen. Due on due Goal Diabetes Screeni ng. Due on due Goal Mammogram. Due on due Goal PCV13 due Goal Depression scree domenic. Due on due Goal BMI counseling d ocumented in Health Promotion Plan. Due on due Goal Colonoscopy. Due on due Goal HEPATITIS C AB TEST due Goal ThinPrep Pap w/ HPV. Due on due Goal Zoster vaccine (1st) due Goal Lipid panel. Due on due Goal Lipid Panel. Due on due Goal Foot exam. Due on due Goal Zoster vaccine () due Goal Dilated eye exam . Due on due Goal Diabetes Screeni ng. Due on due Goal Hemoglobin A1C. Due on due Goal Dietitian. Due on due Goal BMI counseling d ocumented in Health Promotion Plan. Due on due Goal Colonoscopy. Due on due Goal HEPATITIS C AB TEST due Goal HIV-1 AG W/HIV-1 & HIV-2 AB due Goal INFLUENZA. Due on 2 due Goal Annual PE. Due on due Goal Depression scree domenic. Due on due Goal Thyroid Stim Hormone due Goal PCV13 due Goal Zoster vaccine () due Goal Mammogram. Due on due Goal ThinPrep Pap w/ HPV. Due on due Goal Chlamydia/GC Amplification d ue Goal CT low dose, clint g cancer screen. Due on due Goal Dilated eye exam . Due on due Goal ThinPrep Pap. Due on 2020 due Goal Chlamydia/GC Amplification d ue Goal HIV-1 AG W/HIV-1 & HIV-2 AB due Goal Hemoglobin A1C. Due on due Goal Depression scree domenic. Due on due Goal Dietitian. Due on due Goal INFLUENZA. Due on due Goal Lipid panel. Due on due Goal Lipid Panel. Due on due Goal Mammogram. Due on due Goal ThinPrep Pap w/ HPV. Due on due Goal Annual PE. Due on due Goal Diabetes Screeni ng. Due on due Goal PCV13 due Goal HEPATITIS C AB TEST due Goal Colonoscopy. Due on due Goal CT low dose, clint g cancer screen. Due on due Goal Thyroid Stim Hormone due Goal Zoster vaccine (1st) due Goal BMI counseling d ocumented in Health Promotion Plan. Due on due Goal Zoster vaccine (2nd) due Goal Foot exam. Due on due Goal ThinPrep Pap. Due on 2020 due Goal Lipid Panel. Due on due Goal Chlamydia/GC Amplification d ue Goal Lipid panel. Due on due Goal PCV13 due Goal Depression scree domenic. Due on due Goal Zoster vaccine (2nd) due Goal Colonoscopy. Due on 029 due Goal BMI counseling d ocumented in Health Promotion Plan. Due on due Goal Mammogram. Due on due Goal INFLUENZA. Due on 2 due Goal Zoster vaccine (1st) due Goal CT low dose, clint g cancer screen. Due on due Goal Hemoglobin A1C. Due on due Goal Annual PE. Due on due Goal Foot exam. Due on due Goal Dilated eye exam . Due on due Goal Thyroid Stim Hormone due Goal HIV-1 AG W/HIV-1 & HIV-2 AB due Goal Dietitian. Due on due Goal HEPATITIS C AB TEST due Goal Diabetes Screeni ng. Due on due Goal ThinPrep Pap w/ HPV. Due on due Goal Diabetes Screeni ng. Due on due Goal Dilated eye exam . Due on due Goal Dietitian. Due on due Goal HIV-1 AG W/HIV-1 & HIV-2 AB due Goal Zoster vaccine (1st) due Goal Hemoglobin A1C. Due on due Goal Thyroid Stim Hormone due Goal Foot exam. Due on due Goal BMI counseling d ocumented in Health Promotion Plan. Due on due Goal Zoster vaccine (2nd) due Goal Colonoscopy. Due on due Goal INFLUENZA. Due on 2 due Goal Depression scree domenic. Due on due Goal Mammogram. Due on due Goal PCV13 due Goal Lipid Panel. Due on due Goal Lipid panel. Due on due Goal Chlamydia/GC Amplification d ue Goal Annual PE. Due on due Goal HEPATITIS C AB TEST due Goal CT low dose, clint g cancer screen. Due on due Goal ThinPrep Pap w/ HPV. Due on due Goal HEPATITIS C AB TEST due Goal Mammogram. Due on due Goal Colonoscopy. Due on due Goal CT low dose, clint g cancer screen. Due on due Goal ThinPrep Pap w/ HPV. Due on due Goal BMI counseling d ocumented in Health Promotion Plan. Due on due Goal Chlamydia/GC Amplification d ue Goal Annual PE. Due on due Goal HIV-1 AG W/HIV-1 & HIV-2 AB due Goal Zoster vaccine (1st) due Goal INFLUENZA. Due on 2 due Goal PCV13 due Goal Zoster vaccine (2nd) due Goal Diabetes Screeni ng. Due on due Goal Depression scree domenic. Due on due Goal Dietitian. Due on due Goal Dilated eye exam . Due on due Goal Hemoglobin A1C. Due on due Goal Thyroid Stim Hormone due Goal Foot exam. Due on due Goal Lipid panel. Due on due Goal Lipid Panel. Due on due Goal HIV-1 AG W/HIV-1 & HIV-2 AB due Goal BMI counseling d ocumented in Health Promotion Plan. Due on due Goal Mammogram. Due on due Goal Annual PE. Due on due Goal HEPATITIS C AB TEST due Goal Zoster vaccine (1st) due Goal Colonoscopy. Due on due Goal PCV13 due Goal CT low dose, clint g cancer screen. Due on due Goal Diabetes Screeni ng. Due on due Goal ThinPrep Pap w/ HPV. Due on due Goal Depression scree domenic. Due on due Goal Chlamydia/GC Amplification d ue Goal INFLUENZA. Due on due Goal Zoster vaccine (2nd) due Goal Colonoscopy. Due on due Goal INFLUENZA. Due on due Goal Annual PE. Due on due Goal HEPATITIS C AB TEST due Goal Lipid Panel. Due on due Goal Diabetes Screeni ng. Due on due Goal Depression scree domenic. Due on due Goal Mammogram. Due on due Goal Chlamydia/GC Amplification d ue Goal Zoster vaccine (2nd) due Goal HIV-1 AG W/HIV-1 & HIV-2 AB due Goal Zoster vaccine (1st) due Goal PCV13 due Go[address] low dose, clint g cancer screen. Due on due Goal BMI counseling d ocumented in Health Promotion Plan. Due on due Goal ThinPrep Pap w/ HPV. Due on due Goal HIV-1 AG W/HIV-1 & HIV-2 AB due Goal INFLUENZA. Due on due Goal Colonoscopy. Due on 029 due Goal Mammogram. Due on due Goal HEPATITIS C AB TEST due Goal Diabetes Screeni ng. Due on due Goal ThinPrep Pap w/ HPV. Due on due Goal Annual PE. Due on due Goal Zoster vaccine (2nd) due Goal Depression scree domenic. Due on due Goal PCV13 due Goal BMI counseling d ocumented in Health Promotion Plan. Due on due Goal Zoster vaccine (1st) due Goal ThinPrep Pap. Due on 2020 due Goal Lipid Panel. Due on 026 due Goal Chlamydia/GC Amplification d ue Goal INFLUENZA. Due on due Goal HIV-1 AG W/HIV-1 & HIV-2 AB due Goal PCV13 due Goal Depression scree domenic. Due on due Goal Colonoscopy. Due on due Goal Zoster vaccine (2nd) due Goal Annual PE. Due on due Goal Mammogram. Due on due Goal Zoster vaccine (1st) due Goal ThinPrep Pap w/ HPV. Due on due Goal Chlamydia/GC Amplification d ue Goal Lipid Panel. Due on due Goal ThinPrep Pap. Due on 2020 due Goal Diabetes Screeni ng. Due on due Goal BMI counseling d ocumented in Health Promotion Plan. Due on due Goal HEPATITIS C AB TEST due Goal Annual PE. Due on due Goal HIV-1 AG W/HIV-1 & HIV-2 AB due Goal INFLUENZA. Due on due Goal HEPATITIS C AB TEST due Goal Mammogram. Due on due Goal Diabetes Screeni ng. Due on due Goal Colonoscopy. Due on due Goal Zoster vaccine (2nd) due Goal ThinPrep Pap w/ HPV. Due on due Goal Depression scree domenic. Due on due Goal BMI counseling d ocumented in Health Promotion Plan. Due on due Goal Zoster vaccine (1st) due Goal PCV13 due Goal Chlamydia/GC Amplification d ue Goal Lipid Panel. Due on 026 due Goal Lipid Panel. Due on 023 due Goal ThinPrep Pap. Due on 2020 due Goal Chlamydia/GC Amplification d ue Goal Colorectal cance r screen, stool DNA QuARTS with hemoglobin ADIA. Due on due Goal Mammogram. Due on due Goal Annual PE. Due on due Goal Diabetes Screeni ng. Due on due Goal INFLUENZA. Due on due Goal HIV-1 AG W/HIV-1 & HIV-2 AB due Goal HEPATITIS C AB TEST due Goal Zoster vaccine (2nd) due Goal BMI counseling d ocumented in Health Promotion Plan. Due on due Goal ThinPrep Pap w/ HPV. Due on due Goal Zoster vaccine (1st) due Goal PCV13 due Goal Depression scree domenic. Due on due Goal CT low dose, clint g cancer screen. Due on due Goal Colonoscopy. Due on 029 due Goal Lipid Panel. Due on 023 due Goal Mammogram. Due on due Goal CT low dose, clint g cancer screen. Due on due Goal Zoster vaccine (2nd) due Goal HIV-1 AG W/HIV-1 & HIV-2 AB due Goal Diabetes Screeni ng. Due on due Goal BMI counseling d ocumented in Health Promotion Plan. Due on due Goal Chlamydia/GC Amplification d ue Goal Zoster vaccine (1st) due Goal HEPATITIS C AB TEST due Goal Depression scree domenic. Due on due Goal Annual PE. Due on due Goal Colonoscopy. Due on due Goal Colorectal cance r screen, stool DNA QuARTS with hemoglobin ADIA. Due on due Goal ThinPrep Pap w/ HPV. Due on due Goal Chlamydia/GC Amplification d ue Goal ThinPrep Pap. Due on 2020 due Goal Lipid Panel. Due on 023 due Goal Depression scree domenic. Due on due Goal Colorectal cance r screen, stool DNA QuARTS with hemoglobin ADIA. Due on due Goal Zoster vaccine (2nd) due Goal Colonoscopy. Due on due Goal Mammogram. Due on due Goal ThinPrep Pap w/ HPV. Due on due Goal HEPATITIS C AB TEST due Goal HIV-1 AG W/HIV-1 & HIV-2 AB due Goal BMI counseling d ocumented in Health Promotion Plan. Due on due Goal Diabetes Screeni ng. Due on due Goal Annual PE. Due on due Goal Zoster vaccine (1st) due Goal CT low dose, clint g cancer screen. Due on due Goal Diabetes Screeni ng. Due on due Goal HIV-1 AG W/HIV-1 & HIV-2 AB due Goal Depression scree domenic. Due on due Goal ThinPrep Pap w/ HPV. Due on due Goal Lipid Panel. Due on due Goal Chlamydia/GC Amplification d ue Goal HEPATITIS C AB TEST due Goal Colonoscopy. Due on due Goal Annual PE. Due on due Goal BMI counseling d ocumented in Health Promotion Plan. Due on due Goal Colorectal cance r screen, stool DNA QuARTS with hemoglobin ADIA. Due on due Goal Zoster vaccine (2nd) due Goal Zoster vaccine (1st) due Goal ThinPrep Pap. Due on [address] low dose, clint g cancer screen. Due on due Goal Mammogram. Due on due Goal Diabetes Screeni ng. Due on due Goal Zoster vaccine (1st) due Goal ThinPrep Pap w/ HPV. Due on due Goal Colonoscopy. Due on due Goal HEPATITIS C AB TEST due Goal CT low dose, clint g cancer screen. Due on due Goal ThinPrep Pap. Due on 2020 due Goal Lipid Panel. Due on due Goal Chlamydia/GC Amplification d ue Goal HIV-1 AG W/HIV-1 & HIV-2 AB due Goal Mammogram. Due on due Goal BMI counseling d ocumented in Health Promotion Plan. Due on due Goal Colorectal cance r screen, stool DNA QuARTS with hemoglobin ADIA. Due on due Goal Zoster vaccine (2nd) due Goal Depression scree domenic. Due on due Goal Annual PE. Due on due Goal Depression scree domenic. Due on due Goal Zoster vaccine (2nd) due Goal Lipid Panel. Due on due Goal ThinPrep Pap w/ HPV. Due on due Goal BMI counseling d ocumented in Health Promotion Plan. Due on due Goal HIV-1 AG W/HIV-1 & HIV-2 AB due Goal Diabetes Screeni ng. Due on due Goal Colonoscopy. Due on due Goal Zoster vaccine (1st) due Goal Chlamydia/GC Amplification d ue Goal CT low dose, clint g cancer screen. Due on due Goal Mammogram. Due on due Goal Colorectal cance r screen, stool DNA QuARTS with hemoglobin ADIA. Due on due Goal HEPATITIS C AB TEST due Goal Annual PE. Due on due Goal Zoster vaccine (2nd) due Goal BMI counseling d ocumented in Health Promotion Plan. Due on due Goal Zoster vaccine (1st) due Goal Colorectal cance r screen, stool DNA QuARTS with hemoglobin ADIA. Due on due Goal Diabetes Screeni ng. Due on due Goal HEPATITIS C AB TEST due Goal Annual PE. Due on due Goal Depression scree domenic. Due on due Goal ThinPrep Pap w/ HPV. Due on due Goal HIV-1 AG W/HIV-1 & HIV-2 AB due Goal Mammogram. Due on due Goal Lipid Panel. Due on due Goal Colonoscopy. Due on due Goal CT low dose, clint g cancer screen. Due on due Goal Chlamydia/GC Amplification d ue Goal ThinPrep Pap w/ HPV. Due on due Goal HIV-1 AG W/HIV-1 & HIV-2 AB due Goal Zoster vaccine (2nd) due Goal Zoster vaccine (1st) due Goal Colorectal cance r screen, stool DNA QuARTS with hemoglobin ADIA. Due on due Goal Diabetes Screeni ng. Due on due Goal Lipid Panel. Due on due Goal Depression scree domenic. Due on due Goal Colonoscopy. Due on 029 due Goal HEPATITIS C AB TEST due Goal Annual PE. Due on due Goal Chlamydia/GC Amplification d ue Goal ThinPrep Pap. Due on [address] low dose, clint g cancer screen. Due on due Goal BMI counseling d ocumented in Health Promotion Plan. Due on due Goal Zoster vaccine ( 2nd). Due on due Goal Colonoscopy. Due on 029 due Goal HEPATITIS C AB TEST due Goal Chlamydia/GC Amplification d ue Goal BMI counseling d ocumented in Health Promotion Plan. Due on due Goal Diabetes Screeni ng. Due on due Goal HIV-1 AG W/HIV-1 & HIV-2 AB due Goal Colorectal cance r screen, stool DNA QuARTS with hemoglobin ADIA. Due on due Goal Depression scree domenic. Due on due Goal HPV. Due on due Goal Annual PE. Due on 1 due Goal Lipid Panel. Due on 023 due Goal Zoster vaccine () due Goal ThinPrep Pap w/ HPV. Due on due Goal CT low dose, clint g cancer screen. Due on due Goal Colorectal cance r screen, stool DNA QuARTS with hemoglobin ADIA. Due on due Goal HIV-1 AG W/HIV-1 & HIV-2 AB due Goal Depression scree domenic. Due on due Goal Annual PE. Due on 1 due Goal Lipid Panel. Due on due Goal Zoster vaccine (1st) due Goal BMI counseling d ocumented in Health Promotion Plan. Due on due Goal CT low dose, clint g cancer screen. Due on due Goal ThinPrep Pap w/ HPV. Due on due Goal Zoster vaccine ( 2nd). Due on due Goal Chlamydia/GC Amplification d ue Goal Diabetes Screeni ng. Due on due Goal HEPATITIS C AB TEST due Goal Colonoscopy. Due on due Goal Mammogram. Due on due Goal Annual PE. Due on 0 due Goal Depression scree domenic. Due on due Goal HEPATITIS C AB TEST due Goal Diabetes Screeni ng. Due on due Goal Chlamydia/GC Amplification d ue Goal ThinPrep Pap. Due on 2020 due Goal HIV-1 AG W/HIV-1 & HIV-2 AB due Goal ThinPrep Pap w/ HPV. Due on due Goal Colorectal cance r screen, stool DNA QuARTS with hemoglobin ADIA. Due on due Goal Lipid Panel. Due on due Goal BMI counseling d ocumented in Health Promotion Plan. Due on due Goal Colonoscopy. Due on due Goal Depression scree domenic. Due on due Goal Diabetes Screeni ng. Due on due Goal HIV-1 AG W/HIV-1 & HIV-2 AB due Goal Colonoscopy. Due on due Goal Annual PE. Due on 0 due Goal HEPATITIS C AB TEST due Goal ThinPrep Pap w/ HPV. Due on due Goal Colorectal cance r screen, stool DNA QuARTS with hemoglobin ADIA. Due on due Goal BMI counseling d ocumented in Health Promotion Plan. Due on due Goal Mammogram. Due on 1 due Goal Lipid Panel. Due on due Goal Chlamydia/GC Amplification d ue Goal ThinPrep Pap. Due on 2020 due Goal Colonoscopy. Due on due Goal HIV-1 AG W/HIV-1 & HIV-2 AB due Goal Annual PE. Due on 0 due Goal Diabetes Screeni ng. Due on due Goal BMI counseling d ocumented in Health Promotion Plan. Due on due Goal Colorectal cance r screen, stool DNA QuARTS with hemoglobin ADIA. Due on due Goal Lipid Panel. Due on due Goal Mammogram. Due on 1 due Goal HEPATITIS C AB TEST due Goal Chlamydia/GC Amplification d ue Goal Depression scree domenic. Due on due Goal ThinPrep Pap w/ HPV. Due on due Goal Annual PE. Due on 0 due Goal Depression scree domenic. Due on due Goal Colorectal cance r screen, stool DNA QuARTS with hemoglobin ADIA. Due on due Goal ThinPrep Pap w/ HPV. Due on due Goal Colonoscopy. Due on due Goal Mammogram. Due on 1 due Goal HEPATITIS C AB TEST due Goal Lipid Panel. Due on due Goal HIV-1 AG W/HIV-1 & HIV-2 AB due Goal BMI counseling d ocumented in Health Promotion Plan. Due on due Goal Diabetes Screeni ng. Due on due Goal ThinPrep Pap w/ HPV. Due on due Goal Colonoscopy. Due on due Goal ThinPrep Pap. Due on 2020 due Goal Depression scree domenic. Due on due Goal Diabetes Screeni ng. Due on due Goal Lipid Panel. Due on due Goal Colorectal cance r screen, stool DNA QuARTS with hemoglobin ADIA. Due on due Goal HEPATITIS C AB TEST due Goal HIV-1 AG W/HIV-1 & HIV-2 AB due Goal Annual PE. Due on 0 due Goal BMI counseling d ocumented in Health Promotion Plan. Due on due Goal Mammogram. Due on 1 due Goal Tobacco cessation counseling completed Goal Dietary manageme nt education, guidance, and counseling completed Goal Colonoscopy. Due on due Goal HEPATITIS C AB TEST due Goal Depression scree domenic. Due on due Goal ThinPrep Pap w/ HPV. Due on due Goal Lipid Panel. Due on 023 due Goal Colorectal cance r screen, stool DNA QuARTS with hemoglobin ADIA. Due on due Goal CT low dose, clint g cancer screen. Due on due Goal Mammogram. Due on 1 due Goal BMI counseling d ocumented in Health Promotion Plan. Due on due Goal Annual PE. Due on 0 due Goal Diabetes Screeni ng. Due on due Goal HIV-1 AG W/HIV-1 & HIV-2 AB due Goal ThinPrep Pap. Due on 2020 due Goal Annual PE. Due on 0 due Goal HIV-1 AG W/HIV-1 & HIV-2 AB due Goal ThinPrep Pap. Due on [address] low dose, clint g cancer screen. Due on due Goal Colorectal cance r screen, stool DNA QuARTS with hemoglobin ADIA. Due on due Goal BMI counseling d ocumented in Health Promotion Plan. Due on due Goal Diabetes Screeni ng. Due on due Goal Depression scree domenic. Due on due Goal Mammogram. Due on 1 due Goal Colonoscopy. Due on 029 due Goal ThinPrep Pap w/ HPV. Due on due Goal HEPATITIS C AB TEST due Goal Lipid Panel. Due on 023 due Goal Colorectal cance r screen, stool DNA QuARTS with hemoglobin ADIA. Due on due Goal Mammogram. Due on 1 due Goal Lipid Panel. Due on due Goal Diabetes Screeni ng. Due on due Goal CT low dose, clint g cancer screen. Due on due Goal HIV-1 AG W/HIV-1 & HIV-2 AB due Goal Annual PE. Due on 0 due Goal ThinPrep Pap w/ HPV. Due on due Goal BMI counseling d ocumented in Health Promotion Plan. Due on due Goal HEPATITIS C AB TEST due Goal Colonoscopy. Due on 029 due Goal Depression scree domenic. Due on due Goal Colorectal cance r screen, stool DNA QuARTS with hemoglobin ADIA. Due on due Goal Lipid Panel. Due on 023 due Goal Mammogram. Due on [address] low dose, clint g cancer screen. Due on due Goal Depression scree domenic. Due on due Goal HIV-1 AG W/HIV-1 & HIV-2 AB due Goal Diabetes Screeni ng. Due on due Goal Annual PE. Due on 0 due Goal HEPATITIS C AB TEST due Goal Colonoscopy. Due on due Goal ThinPrep Pap w/ HPV. Due on due Goal BMI counseling d ocumented in Health Promotion Plan. Due on due Goal Tobacco cessation counseling completed Goal BMI counseling d ocumented in Health Promotion Plan. Due on due Goal Lipid Panel. Due on 023 due Goal HIV-1 AG W/HIV-1 & HIV-2 AB due Goal Diabetes Screeni ng. Due on due Goal ThinPrep Pap w/ HPV. Due on due Goal Colorectal cance r screen, stool DNA QuARTS with hemoglobin ADIA. Due on due Goal Annual PE. Due on [address] low dose, clint g cancer screen. Due on due Goal Depression scree domenic. Due on due Goal HEPATITIS C AB TEST due Goal ThinPrep Pap. Due on 2020 due Goal Mammogram. Due on 1 due Goal Colonoscopy. Due on due Goal HEPATITIS C AB TEST due Goal ThinPrep Pap w/ HPV. Due on due Goal Annual PE. Due on 0 due Goal Depression scree domenic. Due on due Goal Diabetes Screeni ng. Due on due Goal Colonoscopy. Due on due Goal BMI counseling d ocumented in Health Promotion Plan. Due on due Goal CT low dose, clint g cancer screen. Due on due Goal Lipid Panel. Due on due Goal Mammogram. Due on due Goal Colorectal cance r screen, stool DNA QuARTS with hemoglobin ADIA. Due on due Goal HIV-1 AG W/HIV-1 & HIV-2 AB due Goal ThinPrep Pap. Due on 2020 due Goal Tobacco cessation counseling completed Goal ThinPrep Pap w/ HPV. Due on due Goal CT low dose, clint g cancer screen. Due on due Goal Chest CT WITHOUT Contrast. Due on due Goal Colorectal cance r screen, stool DNA QuARTS with hemoglobin ADIA. Due on due Goal HIV-1 AG W/HIV-1 & HIV-2 AB due Goal HEPATITIS C AB TEST due Goal BMI counseling d ocumented in Health Promotion Plan. Due on due Goal Mammogram. Due on 6 due Goal Annual PE. Due on 0 due Goal Lipid Panel. Due on 023 due Goal Diabetes Screeni ng. Due on due Goal Depression scree domenic. Due on due Goal FOBT. Due on due Goal Mammogram. Due on 6 due Goal FOBT. Due on due Goal BMI counseling d ocumented in Health Promotion Plan. Due on due Goal Colorectal cance r screen, stool DNA QuARTS with hemoglobin ADIA. Due on due Goal Lipid Panel. Due on [address] low dose, clint g cancer screen. Due on due Goal Depression scree domenic. Due on due Goal ThinPrep Pap w/ HPV. Due on due Goal HEPATITIS C AB TEST due Goal Diabetes Screeni ng. Due on due Goal Annual PE. Due on 0 due Goal HIV-1 AG W/HIV-1 & HIV-2 AB due Goal Chest CT WITHOUT Contrast. Due on due Goal Lipid Panel. Due on 023 due Goal Colorectal cance r screen, stool DNA QuARTS with hemoglobin ADIA. Due on due Goal HEPATITIS C AB TEST due Goal FOBT. Due on due Goal Chest CT WITHOUT Contrast. Due on due Goal Diabetes Screeni ng. Due on due Goal Annual PE. Due on [address] low dose, clint g cancer screen. Due on due Goal ThinPrep Pap w/ HPV. Due on due Goal BMI counseling d ocumented in Health Promotion Plan. Due on due Goal HIV-1 AG W/HIV-1 & HIV-2 AB due Goal Depression scree domenic. Due on due Goal Mammogram. Due on 6 due Goal BMI counseling d ocumented in Health Promotion Plan. Due on due Goal Annual PE. Due on 0 due Goal Mammogram. Due on [address] WITHOUT Contrast. Due on due Goal HIV-1 AG W/HIV-1 & HIV-2 AB due Goal Lipid Panel. Due on 023 due Goal Colorectal cance r screen, stool DNA QuARTS with hemoglobin ADIA. Due on due Goal ThinPrep Pap. Due on 2020 due Goal HEPATITIS C AB TEST due Goal Diabetes Screeni ng. Due on due Goal Depression scree domenic. Due on due Goal CT low dose, clint g cancer screen. Due on due Goal FOBT. Due on due Goal ThinPrep Pap w/ HPV. Due on due Goal BMI counseling d ocumented in Health Promotion Plan. Due on due Goal HIV-1 AG W/HIV-1 & HIV-2 AB due Goal ThinPrep Pap w/ HPV. Due on due Goal Depression scree domenic. Due on due Goal HEPATITIS C AB TEST due Goal FOBT. Due on due Goal CT low dose, clint g cancer screen. Due on due Goal Chest CT WITHOUT Contrast. Due on due Goal Annual PE. Due on 0 due Goal Mammogram. Due on 6 due Goal Diabetes Screeni ng. Due on due Goal Lipid Panel. Due on 023 due Goal Colorectal cance r screen, stool DNA QuARTS with hemoglobin ADIA. Due on due Goal BMI counseling d ocumented in Health Promotion Plan. Due on due Goal HIV-1 AG W/HIV-1 & HIV-2 AB due Goal ThinPrep Pap w/ HPV. Due on due Goal Chest CT WITHOUT Contrast. Due on due Goal Annual PE. Due on 0 due Goal Lipid Panel. Due on 023 due Goal Diabetes Screeni ng. Due on due Goal HEPATITIS C AB TEST due Goal Depression scree domenic. Due on due Goal Colorectal cance r screen, stool DNA QuARTS with hemoglobin ADIA. Due on due Goal FOBT. Due on due Goal Mammogram. Due on [address] low dose, clint g cancer screen. Due on due Goal Colorectal cance r screen, stool DNA QuARTS with hemoglobin ADIA. Due on due Goal Mammogram. Due on 6 due Goal ThinPrep Pap. Due on 2020 due Goal Lipid Panel. Due on [address] WITHOUT Contrast. Due on due Goal CT low dose, clint g cancer screen. Due on due Goal Annual PE. Due on 0 due Goal HIV-1 AG W/HIV-1 & HIV-2 AB due Goal ThinPrep Pap w/ HPV. Due on due Goal Depression scree domenic. Due on due Goal BMI counseling d ocumented in Health Promotion Plan. Due on due Goal FOBT. Due on due Goal HEPATITIS C AB TEST due Goal Diabetes Screeni ng. Due on due Goal Lipid Panel. Due on 023 due Goal FOBT. Due on due Goal HIV-1 AG W/HIV-1 & HIV-2 AB due Goal BMI counseling d ocumented in Health Promotion Plan. Due on due Goal HEPATITIS C AB TEST due Goal Chest CT WITHOUT Contrast. Due on due Goal Depression scree domenic. Due on due Goal Diabetes Screeni ng. Due on due Goal ThinPrep Pap w/ HPV. Due on due Goal Annual PE. Due on [address] low dose, clint g cancer screen. Due on due Goal Colorectal cance r screen, stool DNA QuARTS with hemoglobin ADIA. Due on due Goal Mammogram. Due on [address] WITHOUT Contrast. Due on due Goal Annual PE. Due on 0 due Goal HIV-1 AG W/HIV-1 & HIV-[address] low dose, clint g cancer screen. Due on due Goal Lipid Panel. Due on 023 due Goal ThinPrep Pap w/ HPV. Due on due Goal ThinPrep Pap. Due on 2020 due Goal Mammogram. Due on 6 due Goal Colorectal cance r screen, stool DNA QuARTS with hemoglobin ADIA. Due on due Goal BMI counseling d ocumented in Health Promotion Plan. Due on due Goal HEPATITIS C AB TEST due Goal Depression scree domenic. Due on due Goal Diabetes Screeni ng. Due on due Goal FOBT. Due on due Goal FOBT. Due on due Goal CT low dose, clint g cancer screen. Due on due Goal Chest CT WITHOUT Contrast. Due on due Goal Diabetes Screeni ng. Due on due Goal Lipid Panel. Due on 023 due Goal Depression scree domenic. Due on due Goal Annual PE. Due on 0 due Goal Mammogram. Due on 6 due Goal BMI counseling d ocumented in Health Promotion Plan. Due on due Goal HEPATITIS C AB TEST due Goal Colorectal cance r screen, stool DNA QuARTS with hemoglobin ADIA. Due on due Goal ThinPrep Pap w/ HPV. Due on due Goal HIV-1 AG W/HIV-1 & HIV-2 AB due Goal HEPATITIS C AB TEST due Goal Lipid Panel. Due on 023 due Goal Mammogram. Due on 6 due Goal Colorectal cance r screen, stool DNA QuARTS with hemoglobin ADIA. Due on due Goal FOBT. Due on due Goal Chest CT WITHOUT Contrast. Due on due Goal HIV-1 AG W/HIV-1 & HIV-2 AB due Goal ThinPrep Pap w/ HPV. Due on due Goal BMI counseling d ocumented in Health Promotion Plan. Due on due Goal Diabetes Screeni ng. Due on due Goal Depression scree domenic. Due on due Goal CT low dose, clint g cancer screen. Due on due Goal Annual PE. Due on 0 due Goal ThinPrep Pap. Due on 2020 due Goal Mammogram. Due on 6 due Goal Colorectal cance r screen, stool DNA QuARTS with hemoglobin ADIA. Due on due Goal Lipid Panel. Due on due Goal CT low dose, clint g cancer screen. Due on due Goal ThinPrep Pap w/ HPV. Due on due Goal Annual PE. Due on 0 due Goal Diabetes Screeni ng. Due on due Goal Chest CT WITHOUT Contrast. Due on due Goal BMI counseling d ocumented in Health Promotion Plan. Due on due Goal HIV-1 AG W/HIV-1 & HIV-2 AB due Goal HEPATITIS C AB TEST due Goal Depression scree domenic. Due on due Goal FOBT. Due on due Goal BMI counseling d ocumented in Health Promotion Plan. Due on due Goal Diabetes Screeni ng. Due on due Goal Depression scree domenic. Due on due Goal HEPATITIS C AB TEST due Goal FOBT. Due on due Goal Annual PE. Due on 0 due Goal Lipid Panel. Due on due Goal Colorectal cance r screen, stool DNA QuARTS with hemoglobin ADIA. Due on due Goal ThinPrep Pap w/ HPV. Due on due Goal Chest CT WITHOUT Contrast. Due on due Goal CT low dose, clint g cancer screen. Due on due Goal HIV-1 AG W/HIV-1 & HIV-2 AB due Goal Mammogram. Due on 6 due Goal Diabetes Screeni ng. Due on due Goal CT low dose, clint g cancer screen. Due on due Goal Depression scree domenic. Due on due Goal Chest CT WITHOUT Contrast. Due on due Goal FOBT. Due on due Goal ThinPrep Pap w/ HPV. Due on due Goal Annual PE. Due on 9 due Goal Depression scree domenic. Due on due Goal ThinPrep Pap w/ HPV. Due on due Goal Chest CT WITHOUT Contrast. Due on due Goal Diabetes Screeni ng. Due on due Goal FOBT. Due on due Goal CT low dose, clint g cancer screen. Due on due Goal Annual PE. Due on 9 due Goal Annual PE. Due on 9 due Goal Diabetes Screeni ng. Due on due Goal CT low dose, clint g cancer screen. Due on due Goal ThinPrep Pap w/ HPV. Due on due Goal Chest CT WITHOUT Contrast. Due on due Goal FOBT. Due on due Goal Depression scree domenic. Due on due Goal Diabetes Screeni ng. Due on due Goal Depression scree domenic. Due on due Goal ThinPrep Pap w/ HPV. Due on due Goal Annual PE. Due on 9 due Goal FOBT. Due on due Goal Chest CT WITHOUT Contrast. Due on due Goal CT low dose, clint g cancer screen. Due on due Goal FOBT. Due on due Goal Annual PE. Due on 9 due Goal Diabetes Screeni ng. Due on due Goal Chest CT WITHOUT Contrast. Due on due Goal CT low dose, clint g cancer screen. Due on due Goal ThinPrep Pap w/ HPV. Due on due Goal Depression scree domenic. Due on due Goal ThinPrep Pap w/ HPV. Due on due Goal Annual PE. Due on 9 due Goal Depression scree domenic. Due on due Goal Diabetes Screeni ng. Due on due Goal Chest CT WITHOUT Contrast. Due on due Goal FOBT. Due on due Goal CT low dose, clint g cancer screen. Due on due Goal CT low dose, clint g cancer screen. Due on due Goal ThinPrep Pap w/ HPV. Due on due Goal Depression scree domenic. Due on due Goal Annual PE. Due on 9 due Goal Diabetes Screeni ng. Due on due Goal Chest CT WITHOUT Contrast. Due on due Goal FOBT. Due on due Goal CT low dose, clint g cancer screen. Due on due Goal ThinPrep Pap w/ HPV. Due on due Goal Chest CT WITHOUT Contrast. Due on due Goal Annual PE. Due on 9 due Goal Depression scree domenic. Due on due Goal Diabetes Screeni ng. Due on due Goal FOBT. Due on due Goal GLYCOSYLATED HEM OGLOBIN TEST. Due on due Goal Mammogram (Scree domenic); Bilateral (over 55). Due on due Goal Glu; David. Due on 2 due Goal ThinPrep Pap w/ HPV. Due on due Goal HIV-1 AG W/HIV-1 & HIV-2 AB due Goal FOBT. Due on due Goal Lipid Panel. Due on 023 due Goal Annual PE. Due on [address] WITHOUT Contrast. Due on due Goal HEPATITIS C AB TEST due Goal Colorectal cance r screen, stool DNA QuARTS with hemoglobin ADIA. Due on due Goal Influenza virus vaccine,trivalent, split virus, for use in individuals 3 years of age and above,. Due on due Goal GLYCOSYLATED HEM OGLOBIN TEST. Due on due Goal HEPATITIS C AB TEST due Goal HIV-1 AG W/HIV-1 & HIV-2 AB due Goal Influenza virus vaccine, quadrivalent, split virus, preservative free, when administered to individu. Due on due Goal ThinPrep Pap. Due on 2020 due Goal Glu; David. Due on 2 due Goal ThinPrep Pap w/ HPV. Due on due Goal Mammogram (Scree domenic); Bilateral (over 55). Due on due Goal Chest CT WITHOUT Contrast. Due on due Goal Lipid Panel. Due on 023 due Goal Occult Blood, St ool. Due on due Goal Annual PE. Due on 9 due Goal Annual PE. Due on 9 due Goal Mammogram (Scree domenic); Bilateral (over 55). Due on due Goal Influenza virus vaccine, quadrivalent, split virus, preservative free, when administered to individu. Due on due Goal Glu; David. Due on 2 due Goal Occult Blood, St ool. Due on due Goal GLYCOSYLATED HEM OGLOBIN TEST. Due on due Goal HIV-1 AG W/HIV-1 & HIV-2 AB due Goal HEPATITIS C AB TEST due Goal Colorectal cance r screen, stool DNA QuARTS with hemoglobin ADIA. Due on due Goal Influenza virus vaccine,trivalent, split virus, for use in individuals 3 years of age and above,. Due on due Goal ThinPrep Pap w/ HPV. Due on due Goal Chest CT WITHOUT Contrast. Due on due Goal Lipid Panel. Due on 023 due Goal ThinPrep Pap w/ HPV. Due on due Goal HEPATITIS C AB TEST due Goal GLYCOSYLATED HEM OGLOBIN TEST. Due on due Goal Mammogram (Scree domenic); Bilateral (over 55). Due on due Goal Chest CT WITHOUT Contrast. Due on due Goal Glu; David. Due on 2 due Goal Annual PE. Due on 9 due Goal Influenza virus vaccine, quadrivalent, split virus, preservative free, when administered to individu. Due on due Goal Influenza virus vaccine,trivalent, split virus, for use in individuals 3 years of age and above,. Due on due Goal Occult Blood, St ool. Due on due Goal Lipid Panel. Due on 023 due Goal Colorectal cance r screen, stool DNA QuARTS with hemoglobin ADIA. Due on due Goal HIV-1 AG W/HIV-1 & HIV-2 AB due Goal ThinPrep Pap. Due on 2020 due Goal Glu; David. Due on 1 due Goal Influenza virus vaccine, quadrivalent, split virus, preservative free, when administered to individu. Due on due Goal Influenza virus vaccine,trivalent, split virus, for use in individuals 3 years of age and above,. Due on due Goal ThinPrep Pap w/ HPV. Due on due Goal Pneumo PCV13 due Goal HEPATITIS C AB TEST due Goal Annual PE. Due on 9 due Goal Zoster-Shingrix. Due on due Goal HIV-1 AG W/HIV-1 & HIV-2 AB due Goal Lipid Panel. Due on 023 due Goal Mammogram (Scree domenic); Bilateral (over 55). Due on due Goal TDAP due Goal Pneumo (2 yrs or older)(PPV) due Goal GLYCOSYLATED HEM OGLOBIN TEST. Due on due Goal Colonoscopy,. Due on 2018 due Goal Glu; David. Due on 1 due Goal Influenza virus vaccine, quadrivalent. Due on due Goal Zoster-Shingrix. Due on due Goal Influenza virus vaccine, quadrivalent, split virus, preservative free, when administered to individu. Due on due Goal Mammogram (Scree domenic); Bilateral (over 55). Due on due Goal Influenza virus vaccine, trivalent, split virus, preservative free. Due on due Goal GLYCOSYLATED HEM OGLOBIN TEST. Due on due Goal Colonoscopy,. Due on 2017 due Goal Influenza virus vaccine,trivalent, split virus, for use in individuals 3 years of age and above,. Due on due Goal Chlamydia/GC Amp lification. Due on due Goal Annual PE. Due on 8 due Goal Influenza virus vaccine,trivalent, split virus, for use in individuals 3 years of age and above,. Due on due Goal Annual PE. Due on 8 due Goal Influenza virus vaccine, quadrivalent, split virus, preservative free, when administered to individu. Due on due Goal Influenza virus vaccine, quadrivalent. Due on due Goal Chlamydia/GC Amp lification. Due on due Goal Glu; David. Due on 1 due Goal ThinPrep Pap w/ HPV. Due on due Goal Influenza virus vaccine, trivalent, split virus, preservative free. Due on due Goal Colonoscopy,. Due on 2017 due Goal Mammogram (Scree domenic); Bilateral (over 55). Due on due Goal Zoster-Shingrix. Due on due Goal GLYCOSYLATED HEM OGLOBIN TEST. Due on due Goal Influenza virus vaccine,trivalent, split virus, for use in individuals 3 years of age and above,. Due on due Goal Mammogram (Scree domenic); Bilateral (over 55). Due on due Goal Glu; David. Due on 1 due Goal Influenza virus vaccine, quadrivalent. Due on due Goal Colonoscopy,. Due on 2017 due Goal GLYCOSYLATED HEM OGLOBIN TEST. Due on due Goal Chlamydia/GC Amp lification. Due on due Goal ThinPrep Pap w/ HPV. Due on due Goal Zoster-Shingrix. Due on due Goal Influenza virus vaccine, trivalent, split virus, preservative free. Due on due Goal Influenza virus vaccine, quadrivalent, split virus, preservative free, when administered to individu. Due on due Goal Annual PE. Due on 8 due Goal Zoster-Shingrix. Due on due Goal Influenza virus vaccine, trivalent, split virus, preservative free. Due on due Goal Influenza virus vaccine,trivalent, split virus, for use in individuals 3 years of age and above,. Due on due Goal Glu; David. Due on 1 due Goal ThinPrep Pap w/ HPV. Due on due Goal Influenza virus vaccine, quadrivalent. Due on due Goal Mammogram (Scree domenic); Bilateral (over 55). Due on due Goal Chlamydia/GC Amp lification. Due on due Goal Annual PE. Due on 8 due Goal Influenza virus vaccine, quadrivalent, split virus, preservative free, when administered to individu. Due on due Goal Colonoscopy,. Due on 2017 due Goal GLYCOSYLATED HEM OGLOBIN TEST. Due on due Goal Tobacco cessation counseling ordered Goal Tobacco cessation counseling ordered Goal Tobacco cessation counseling ordered Goal Tobacco cessation counseling ordered Goal Influenza virus vaccine,trivalent, split virus, for use in individuals 3 years of age and above,. Due on due Goal Annual PE. Due on 8 due Goal ThinPrep Pap w/ HPV. Due on due Goal Glu; David. Due on 1 due Goal GLYCOSYLATED HEM OGLOBIN TEST. Due on due Goal Mammogram (Scree domenic); Bilateral (over 55). Due on due Goal Influenza virus vaccine, trivalent, split virus, preservative free. Due on due Goal Influenza virus vaccine, quadrivalent, split virus, preservative free, when administered to individu. Due on due Goal Tetanus/diphth T ox-adult-im/je. Due on due Goal Zoster-Shingrix. Due on due Goal Influenza virus vaccine, quadrivalent. Due on due Goal Colonoscopy,. Due on 2017 due Goal Chlamydia/GC Amp lification. Due on due Goal Colonoscopy,. Due on 2017 due Goal Chlamydia/GC Amp lification. Due on due Goal Zoster-Shingrix. Due on due Goal Mammogram (Scree domenic); Bilateral (over 55). Due on due Goal Influenza virus vaccine,trivalent, split virus, for use in individuals 3 years of age and above,. Due on due Goal Influenza virus vaccine, trivalent, split virus, preservative free. Due on due Goal Influenza virus vaccine, quadrivalent. Due on due Goal Glu; David. Due on 1 due Goal Influenza virus vaccine, quadrivalent, split virus, preservative free, when administered to individu. Due on due Goal GLYCOSYLATED HEM OGLOBIN TEST. Due on due Goal ThinPrep Pap w/ HPV. Due on due Goal Annual PE. Due on 8 due Goal Tetanus/diphth T ox-adult-im/je. Due on due Goal Colonoscopy,. Due on 2017 due Goal Mammogram (Scree domenic); Bilateral (over 55). Due on due Goal Influenza virus vaccine, quadrivalent. Due on due Goal Influenza virus vaccine, quadrivalent, split virus, preservative free, when administered to individu. Due on due Goal GLYCOSYLATED HEM OGLOBIN TEST. Due on due Goal Annual PE. Due on 8 due Goal Zoster-Shingrix. Due on due Goal Tetanus/diphth T ox-adult-im/je. Due on due Goal Influenza virus vaccine, trivalent, split virus, preservative free. Due on due Goal Influenza virus vaccine,trivalent, split virus, for use in individuals 3 years of age and above,. Due on due Goal Chlamydia/GC Amp lification. Due on due Goal ThinPrep Pap w/ HPV. Due on due Goal Glu; David. Due on 1 due Goal Chlamydia/GC Amp lification. Due on due Goal Influenza virus vaccine, trivalent, split virus, preservative free. Due on due Goal ThinPrep Pap w/ HPV. Due on due Goal Influenza virus vaccine,trivalent, split virus, for use in individuals 3 years of age and above,. Due on due Goal GLYCOSYLATED HEM OGLOBIN TEST. Due on due Goal Annual PE. Due on 8 due Goal Colonoscopy,. Due on 2017 due Goal Zoster-Shingrix. Due on due Goal Influenza virus vaccine, quadrivalent, split virus, preservative free, when administered to individu. Due on due Goal Tobacco cessation counseling completed Goal Tobacco cessation counseling completed Goal Colonoscopy,. Due on 2017 due Goal Influenza virus vaccine, quadrivalent, split virus, preservative free, when administered to individu. Due on due Goal Zoster-Shingrix. Due on due Goal GLYCOSYLATED HEM OGLOBIN TEST. Due on due Goal ThinPrep Pap w/ HPV. Due on due Goal Annual PE. Due on 8 due Goal Chlamydia/GC Amp lification. Due on due Goal Influenza virus vaccine,trivalent, split virus, for use in individuals 3 years of age and above,. Due on due Goal Influenza virus vaccine, trivalent, split virus, preservative free. Due on due Goal Tobacco cessation counseling completed Goal Tobacco cessation counseling completed Goal Tobacco cessation counseling completed Goal Tobacco cessation counseling completed Goal Influenza virus vaccine, quadrivalent, split virus, preservative free, when administered to individu. Due on due Goal Chlamydia/GC Amp lification. Due on due Goal GLYCOSYLATED HEM OGLOBIN TEST. Due on due Goal Annual PE. Due on 8 due Goal ThinPrep Pap w/ HPV. Due on due Goal Colonoscopy,. Due on 2017 due Goal Zoster-Shingrix. Due on due Goal Influenza virus vaccine, trivalent, split virus, preservative free. Due on due Goal Influenza virus vaccine,trivalent, split virus, for use in individuals 3 years of age and above,. Due on due Goal Tobacco cessation counseling completed Goal Tobacco cessation counseling completed Goal Tobacco cessation counseling completed Goal Tobacco cessation counseling completed Goal Tobacco cessation counseling completed Goal Tobacco cessation counseling completed Goal Tobacco cessation counseling completed Goal Zoster-Shingrix. Due on due Goal Chlamydia/GC Amp lification. Due on due Goal Annual PE. Due on 8 due Goal Influenza virus vaccine, quadrivalent, split virus, preservative free, when administered to individu. Due on due Goal Influenza virus vaccine,trivalent, split virus, for use in individuals 3 years of age and above,. Due on due Goal Influenza virus vaccine, trivalent, split virus, preservative free. Due on due Goal Pneumo (2 yrs or older)(PPV) due Goal ThinPrep Pap w/ HPV. Due on due Goal GLYCOSYLATED HEM OGLOBIN TEST. Due on due Goal Colonoscopy,. Due on 2017 due Goal Pneumo PCV13 due Goal Colonoscopy,. Due on 2017 due Goal Annual PE. Due on 8 due Goal ThinPrep Pap w/ HPV. Due on due Goal Influenza virus vaccine, quadrivalent, split virus, preservative free, when administered to individu. Due on due Goal GLYCOSYLATED HEM OGLOBIN TEST. Due on due Goal Chlamydia/GC Amp lification. Due on due Goal Zoster-Shingrix. Due on due Goal Influenza virus vaccine, trivalent, split virus, preservative free. Due on due Goal Influenza virus vaccine,trivalent, split virus, for use in individuals 3 years of age and above,. Due on due Goal Tobacco cessation counseling completed Goal Tobacco cessation counseling completed Goal Td,preservative free (7 yrs and older). Due on due Goal ThinPrep Pap w/ HPV. Due on due Goal Influenza virus vaccine, quadrivalent, split virus, preservative free, when administered to individu. Due on due Goal Annual PE. Due on 8 due Goal Colonoscopy,. Due on 2017 due Goal GLYCOSYLATED HEM OGLOBIN TEST. Due on due Goal Influenza virus vaccine, trivalent, split virus, preservative free. Due on due Goal Tetanus/diphth T ox-adult-im/je. Due on due Goal Influenza virus vaccine,trivalent, split virus, for use in individuals 3 years of age and above,. Due on due Goal Chlamydia/GC Amp lification. Due on due Goal Tobacco cessation counseling completed Goal Colonoscopy,. Due on 2017 due Goal GLYCOSYLATED HEM OGLOBIN TEST. Due on due Goal Tetanus/diphth T ox-adult-im/je. Due on due Goal Influenza virus vaccine, quadrivalent, split virus, preservative free, when administered to individu. Due on due Goal Chlamydia/GC Amp lification. Due on due Goal Td,preservative free (7 yrs and older). Due on due Goal ThinPrep Pap w/ HPV. Due on due Goal Influenza virus vaccine,trivalent, split virus, for use in individuals 3 years of age and above,. Due on due Goal Influenza virus vaccine, trivalent, split virus, preservative free. Due on due Goal Annual PE. Due on 8 due Goal Tobacco cessation counseling completed Goal Tetanus/diphth T ox-adult-im/je. Due on due Goal Td,preservative free (7 yrs and older). Due on due Goal Influenza virus vaccine, trivalent, split virus, preservative free. Due on due Goal Influenza virus vaccine, quadrivalent, split virus, preservative free, when administered to individu. Due on due Goal Chlamydia/GC Amp lification. Due on due Goal Annual PE. Due on 8 due Goal ThinPrep Pap w/ HPV. Due on due Goal Colonoscopy,. Due on 2017 due Goal Influenza virus vaccine,trivalent, split virus, for use in individuals 3 years of age and above,. Due on due Goal GLYCOSYLATED HEM OGLOBIN TEST. Due on due Goal Tobacco cessation counseling completed Goal Tobacco cessation counseling completed Goal Colonoscopy,. Due on 2017 due Goal Chlamydia/GC Amp lification. Due on due Goal Td,preservative free (7 yrs and older). Due on due Goal Influenza virus vaccine, trivalent, split virus, preservative free. Due on due Goal ThinPrep Pap w/ HPV. Due on due Goal Mammogram (Scree domenic); Bilateral. Due on due Goal Annual PE. Due on 8 due Goal Influenza virus vaccine,trivalent, split virus, for use in individuals 3 years of age and above,. Due on due Goal Influenza virus vaccine, quadrivalent, split virus, preservative free, when administered to individu. Due on due Goal Tetanus/diphth T ox-adult-im/je. Due on due Goal GLYCOSYLATED HEM OGLOBIN TEST. Due on due Goal Tobacco cessation counseling completed Goal Tobacco cessation counseling completed Goal Influenza virus vaccine,trivalent, split virus, for use in individuals 3 years of age and above,. Due on due Goal Influenza virus vaccine, quadrivalent, split virus, preservative free, when administered to individu. Due on due Goal ThinPrep Pap w/ HPV. Due on due Goal Td,preservative free (7 yrs and older). Due on due Goal Tetanus/diphth T ox-adult-im/je. Due on due Goal GLYCOSYLATED HEM OGLOBIN TEST. Due on due Goal Influenza virus vaccine, trivalent, split virus, preservative free. Due on due Goal Chlamydia/GC Amp lification. Due on due Goal Colonoscopy,. Due on 2017 due Goal Annual PE. Due on 8 due Goal Mammogram (Scree domenic); Bilateral. Due on due Goal Tobacco cessation counseling completed Goal Tobacco cessation counseling completed Goal Tobacco cessation counseling completed Goal Tobacco cessation counseling completed Goal Tobacco cessation counseling completed Goal Influenza virus vaccine,trivalent, split virus, for use in individuals 3 years of age and above,. Due on due Goal GLYCOSYLATED HEM OGLOBIN TEST. Due on due Goal Annual PE. Due on 7 due Goal Mammogram (Scree domenic); Bilateral. Due on due Goal ThinPrep Pap w/ HPV. Due on due Goal Tetanus/diphth T ox-adult-im/je. Due on due Goal Colonoscopy,. Due on 2016 due Goal Influenza virus vaccine, quadrivalent, split virus, preservative free, when administered to individu. Due on due Goal Chlamydia/GC Amp lification. Due on due Goal Td,preservative free (7 yrs and older). Due on due Goal Td,preservative free (7 yrs and older). Due on due Goal Influenza virus vaccine, quadrivalent, split virus, preservative free, when administered to individu. Due on due Goal Colonoscopy,. Due on 2016 due Goal Tetanus/diphth T ox-adult-im/je. Due on due Goal ThinPrep Pap w/ HPV. Due on due Goal Annual PE. Due on 7 due Goal GLYCOSYLATED HEM OGLOBIN TEST. Due on due Goal Mammogram (Scree domenic); Bilateral. Due on due Goal Chlamydia/GC Amp lification. Due on due Goal Influenza virus vaccine,trivalent, split virus, for use in individuals 3 years of age and above,. Due on due Goal Tobacco cessation counseling completed Goal Tobacco cessation counseling completed Goal GLYCOSYLATED HEM OGLOBIN TEST. Due on due Goal Chlamydia/GC Amp lification. Due on due Goal Annual PE. Due on 7 due Goal Tetanus/diphth T ox-adult-im/je. Due on due Goal ThinPrep Pap w/ HPV. Due on due Goal Colonoscopy,. Due on 2016 due Goal Influenza virus vaccine, quadrivalent, split virus, preservative free, when administered to individu. Due on due Goal Td,preservative free (7 yrs and older). Due on due Goal Mammogram (Scree domenic); Bilateral. Due on due Goal Influenza virus vaccine,trivalent, split virus, for use in individuals 3 years of age and above,. Due on due Goal Tobacco cessation counseling completed Goal Tobacco cessation counseling completed Goal Influenza virus vaccine, quadrivalent, split virus, preservative free, when administered to individu. Due on due Goal Chlamydia/GC Amp lification. Due on due Goal Mammogram (Scree domenic); Bilateral. Due on due Goal Td,preservative free (7 yrs and older). Due on due Goal GLYCOSYLATED HEM OGLOBIN TEST. Due on due Goal Annual PE. Due on 7 due Goal Influenza virus vaccine,trivalent, split virus, for use in individuals 3 years of age and above,. Due on due Goal Tetanus/diphth T ox-adult-im/je. Due on due Goal Colonoscopy,. Due on 2016 due Goal ThinPrep Pap w/ HPV. Due on due Goal Tobacco cessation counseling completed Goal Tetanus/diphth T ox-adult-im/je. Due on due Goal Colonoscopy,. Due on 2016 due Goal Annual PE. Due on 7 due Goal Td,preservative free (7 yrs and older). Due on due Goal Influenza virus vaccine,trivalent, split virus, for use in individuals 3 years of age and above,. Due on due Goal ThinPrep Pap w/ HPV. Due on due Goal Mammogram (Scree domenic); Bilateral. Due on due Goal GLYCOSYLATED HEM OGLOBIN TEST. Due on due Goal Influenza virus vaccine, quadrivalent, split virus, preservative free, when administered to individu. Due on due Goal Chlamydia/GC Amp lification. Due on due Goal Tobacco cessation counseling completed Goal Influenza virus vaccine,trivalent, split virus, for use in individuals 3 years of age and above,. Due on due Goal Influenza virus vaccine, quadrivalent, split virus, preservative free, when administered to individu. Due on due Goal Tetanus/diphth T ox-adult-im/je. Due on due Goal GLYCOSYLATED HEM OGLOBIN TEST. Due on due Goal Td,preservative free (7 yrs and older). Due on due Goal Annual PE. Due on 7 due Goal Mammogram (Scree domenic); Bilateral. Due on due Goal Chlamydia/GC Amp lification. Due on due Goal ThinPrep Pap w/ HPV. Due on due Goal Colonoscopy,. Due on 2016 due Goal Tobacco cessation counseling completed Goal Tobacco cessation counseling completed Goal Tobacco cessation counseling completed Goal Influenza virus vaccine, quadrivalent, split virus, preservative free, when administered to individu. Due on due Goal Chlamydia/GC Amp lification. Due on due Goal Td,preservative free (7 yrs and older). Due on due Goal Colonoscopy,. Due on 2016 due Goal Influenza virus vaccine,trivalent, split virus, for use in individuals 3 years of age and above,. Due on due Goal GLYCOSYLATED HEM OGLOBIN TEST. Due on due Goal Tetanus/diphth T ox-adult-im/je. Due on due Goal ThinPrep Pap w/ HPV. Due on due Goal Annual PE. Due on 7 due Goal Mammogram (Scree domenic); Bilateral. Due on due Goal Tobacco cessation counseling completed Goal Tobacco cessation counseling completed Goal GLYCOSYLATED HEM OGLOBIN TEST. Due on due Goal Influenza virus vaccine, quadrivalent, split virus, preservative free, when administered to individu. Due on due Goal ThinPrep Pap w/ HPV. Due on due Goal Td,preservative free (7 yrs and older). Due on due Goal Colonoscopy,. Due on 2016 due Goal Tetanus/diphth T ox-adult-im/je. Due on due Goal Annual PE. Due on 7 due Goal Influenza virus vaccine,trivalent, split virus, for use in individuals 3 years of age and above,. Due on due Goal Mammogram (Scree domenic); Bilateral. Due on due Goal Chlamydia/GC Amp lification. Due on due Goal Tobacco cessation counseling completed Goal Influenza virus vaccine,trivalent, split virus, for use in individuals 3 years of age and above,. Due on due Goal GLYCOSYLATED HEM OGLOBIN TEST. Due on due Goal Colonoscopy,. Due on 2016 due Goal Annual PE. Due on 7 due Goal Influenza virus vaccine, quadrivalent, split virus, preservative free, when administered to individu. Due on due Goal ThinPrep Pap w/ HPV. Due on due Goal Tetanus/diphth T ox-adult-im/je. Due on due Goal Mammogram (Scree domenic); Bilateral. Due on due Goal Td,preservative free (7 yrs and older). Due on due Goal Chlamydia/GC Amp lification. Due on due Goal Tobacco cessation counseling completed Goal Tobacco cessation counseling completed Goal Tobacco cessation counseling completed Goal Tobacco cessation counseling completed Goal Colonoscopy,. Due on 2016 due Goal Td,preservative free (7 yrs and older). Due on due Goal Influenza virus vaccine,trivalent, split virus, for use in individuals 3 years of age and above,. Due on due Goal Influenza virus vaccine, quadrivalent, split virus, preservative free, when administered to individu. Due on due Goal ThinPrep Pap w/ HPV. Due on due Goal GLYCOSYLATED HEM OGLOBIN TEST. Due on due Goal Annual PE. Due on 7 due Goal Tetanus/diphth T ox-adult-im/je. Due on due Goal Mammogram (Scree domenic); Bilateral. Due on due Goal Chlamydia/GC Amp lification. Due on due Goal Tobacco cessation counseling completed Goal GLYCOSYLATED HEM OGLOBIN TEST. Due on due Goal Chlamydia/GC Amp lification. Due on due Goal Tetanus/diphth T ox-adult-im/je. Due on due Goal Mammogram (Scree domenic); Bilateral. Due on due Goal ThinPrep Pap w/ HPV. Due on due Goal Influenza virus vaccine, quadrivalent, split virus, preservative free, when administered to individu. Due on due Goal Td,preservative free (7 yrs and older). Due on due Goal Colonoscopy,. Due on 2016 due Goal Influenza virus vaccine,trivalent, split virus, for use in individuals 3 years of age and above,. Due on due Goal Annual PE. Due on 7 due Goal Tobacco cessation counseling completed Goal Tobacco cessation counseling completed Goal Tobacco cessation counseling completed Goal Chlamydia/GC Amp lification. Due on due Goal ThinPrep Pap w/ HPV. Due on due Goal Tetanus/diphth T ox-adult-im/je. Due on due Goal GLYCOSYLATED HEM OGLOBIN TEST. Due on due Goal Td,preservative free (7 yrs and older). Due on due Goal Mammogram (Scree domenic); Bilateral. Due on due Goal Colonoscopy,. Due on 2016 due Goal Influenza virus vaccine, quadrivalent, split virus, preservative free, when administered to individu. Due on due Goal Influenza virus vaccine,trivalent, split virus, for use in individuals 3 years of age and above,. Due on due Goal Annual PE. Due on 7 due Goal Mammogram (Scree domenic); Bilateral. Due on due Goal Annual PE. Due on due Goal ThinPrep Pap w/ HPV. Due on due Goal Influenza virus vaccine, quadrivalent, split virus, preservative free, when administered to individu. Due on due Goal Tetanus/diphth T ox-adult-im/je. Due on due Goal Colonoscopy,. Due on 2016 due Goal Td,preservative free (7 yrs and older). Due on due Goal Chlamydia/GC Amp lification. Due on due Goal GLYCOSYLATED HEM OGLOBIN TEST. Due on due Goal Influenza virus vaccine,trivalent, split virus, for use in individuals 3 years of age and above,. Due on due Goal Influenza virus vaccine,trivalent,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 need refill of this. Toradol injection Provider reque sts patient to receive __15__mg of toradol today for chronic hip and low back pain.Pt denies any recent use/within the last 24 hours of NSAIDs or aspirin, denies active or historical peptic ulcer or GI bleed.Recommended continued use of Tylenol instead of NSAIDS after injection. Advised patient to follow up with provider plan as needed. Administered: Right ventrogluteal area. BISI HARDING COPD (follow up) Symptom is aggr avated by activities of daily living and mild activity. Associated symptoms include dry cough, morning cough, nausea and wheezing. Pertinent negatives include chest pain, chest pressure/discomfort, irregular heartbeat/palpitations and productive cough. Additional information: Pt describes hot/cold flashes three times daily and nightly.Pt has consistent smoker's cough without phlegm production. Followup Chronic Hip Pain Pt suf fers from chronic hip and low back pain. Denies any increase or decrease in pain. No swelling/spasming. Continued use of rolling walker for mobility Pt is requesting a script of Toradol and an injection of tramadol today. Pt also requests flu vaccine today. Vaginal discharge (comments) no pelvic pain, not currently sexually active, no vomiting today. WAs seen in ed for not feeling well 4 days ago, labs showed hypokalemia. She reports she's been feeling more tired lately, some leg weakness, uses walker. Vaginal discharge Her symptoms b domenica 3 Weeks ago. Presently the patient is experiencing vaginal itching, vaginal irritation, vaginal odor and vaginal discharge. Color is clear. Character is thick. The patient is postmenopausal. The patient has a history of yeast. Additional information: pt feels unwell, c/o nausea. Follow Up of diarrhea The proble m is without change. Additional information: takes loperamide to help and still having symptoms. weakness Onset was 1 week ago. Activities affected include walking. Associated symptoms include weakness. Additional information: 1 week ago pt legs and knees started shaking and reports this happens all the time. pt reports she has had some falls due to weakness in her legs. Follow Up of diarrhe a (comments) pt report she dropped off her stool samples last week.reviewed results: neg enteric pathogen studies, unable to run c diff study as stool was too formed, not diarrhea. Comments Imms Due: Hep A, Flu, Td and Zoster Due Today Recent ED Visits [facility] Date: 11/21/2019Primary Diagnosis: Acute bilateral low back pain without sciaticaNotes: Presented due to worsening back pain after fall on 11/16. She denies numbness, tingling, or weakness. She can ambulate with her walker, and feels she can reach all the things necessary at home with her walker. Meds: treated with 15mg injection Toradol and a patch of 5% lidodermLabs: None. Imaging: lumbar X-Ray - mild straightening of the normal lumbar lordosis. Slight rightward curvature of the lumbar spine. No significant spondylolisthesis. No acute fracture is identified. The vertebral body heights are maintained. The spinous processes are normal. There are mild degenerative disc and facet changes are seen in the lower lumbar spine, most evident at at L5-S1. Prior left hip arthroplasty is partially included. Mild degenerative changes are seen in the right hip and sacroiliac joints. Soft tissues are unremarkable ------[facility]Primary Diagnosis: Hematemesis with nausea, RUQ pain, Gastroesophageal reflux disease, esophagitis presence not specified Notes: Pt presented due to vomiting and diarrhea. Diarrhea has been dark and vomiting has had small amount of pink/blood. worsening feelings of fatigue and weakness. Meds: No changesLabs: BMP, CMP, Troponin I, Toxicology, GI, Hematology, Urine, Fecal/Bacterial. Significant values: significant for: Sodium 130. Potassium 4.6. Chloride 104. Creatinine 1. AST 34. ALT 42. Lipase 84. ALT 42. AST 34. Fecal Bacterial Pathogen STILL PENDING. Imaging: EKG - Sinus rhythm at a rate of 80 bpm. [place] within normal limits. Intervals within normal limits. No QT prolongation. No signs of acute ST elevation or depression. Head CT - No evidence of recent intracranial hemorrhage, acute infarction, or mass. Chronic Diarrhea Pt reports acut e worsening of chronic diarrhea. Having loose BM daily 1-2 times on avg, sometimes more. Does not seem to be connected to food or drink pt is consuming. Pt complains of having no food to feed herself currently. Quality of Stool: not bloody, sometimes very dark and sometimes light brownAssociated Symptoms: nausea, vomiting. fatigueRecent Colonoscopy: 2019 lymphatic colitisRisk Factors: C.diff or other infectious diarrhea (on omeprazole and has frequent ER visits). Will test stools for bacterial pathogens and C.diff.Testing: Recently colected and returned stool samples for C. Diff sand Fecal bacterial pathogen Fatigue/Vomiting Pt reports the following symptoms which have been occurring for 2-3 weeks, worse in the last 1 week. Pt unsure if these ar related to acute illness or worsening of her depression. Pt denies any recent life changes which would cause her depression to worsen but her pain has been making her feel worse about herself - Taking Effexor daily for depression. Current Symptoms: vomiting 1-3x daily due to nausea, sever fatigue, poor balance, dizziness when standing, low motivation to get out of bedFood/Drink: able to eat/drink normallyNew Meds: LH rx Acamprosate on 11/18, pt has not started yet. Nothing else new. Mental health: no thoughts of SI/HI Fatigue/Vomiting (comments) Tota lly exhausted today. Hasn't done anything today - no breakfast, nothing.Has taken her usual medications today. (Effexor and Haloperidol.)No fever. Does have chronic cough due to COPD. No runny nose. No congestion.No BM today. Was having diarrhea yesterday (4-5 times, twice in the middle of the night). Took imodium AD which seems to be helping.Prior to ED visit on 11/28 was vomiting blood. Most recent episode of hematemesis was 3-4 days ago.Reviewed labs from 11/28 ER visit - hgb 11.5, normal CMP except mildly elevated ALT, negative troponin. Head CT was also done for unclear reasons (provider note not yet done). Follow Up Tourette's (comments) pt has a hard time telling if the increase in haldol has been helpful. feels restless at night still and during day. would lke an increase in meds or a new med or something. asking for risperidone today Follow Up Left Hip Pain Pt prese nts to follow up on her chronic left hip pain, hx of hip replacement. Overall pt doing better, after injections. Still having some soreness left hip and low-mid back. Pt fell in her home the other day after losing balance and not having her walker close by which has worsened her hip and back pain. Medication: Using Tylenol/Ibuprofen PRNToradol Injections: 10/22/2019, 10/29/2019 Follow Up Tourette's Moods have been stable and okay for the most part. Having increased anxiety after she fell a few days ago as she is nervous she might fall again and no one will know. Medications:Mirtazapine 30mg qhsHaldol to 4x/daily (INCREASED)Effexor 150mg BIDHydroxyzine 50mg BID PRNTrazodone 150mg BID nsv EKG, ear lavage, Toradol injection Pt here for EKG, bilateral ear lavage, and Toradol 15mg/0.5mL injection per orders.EKG performed and reviewed by . Normal.Toradol 15mg/0.5mL injection administered to left deltoid w/o incident. Pt tolerated well.MA to do bilateral ear lavage. Pt aware and consents.MEHDI NOBLE Anxiety The patient pres ents with anxious/fearful thoughts, difficulty concentrating, difficulty falling asleep, difficulty staying asleep, excessive worry, increased energy, paranoia, poor judgment, racing thoughts and restlessness. The patient's risk factors include family history of depression and family history of anxiety. The Anxiety is aggravated by lack of sleep. The Anxiety is associated with chronic pain (low back), headache, irritability, nausea, trembling and vomiting. Additional information: Pt would like rx for Diphenhydramine 25mg. She takes this when anxious which causes itchy hives. Also taking Hydroxyzine 25mg TID but last rx was only for BID. Anxiety is much worst 6pm-9pm and all through the night. Anxiety worsens diarrhea. Back Pain Location of pain is middle back and lower back.The patient describes the pain as sharp and shooting. Additional information: Back hurts whenever pt moves in any way. Pt missed NSV last week so she never got Toradol inj. When anxiety flares, back pain is exacerbated, typically at night. anxiety Additional infor mation: pt reports some bright green stools for past few days. no vomiting, no change in stools, some loose stools. ear fullness right ear fullne ss for past several days. feels like its blocked cough Onset: 2 weeks a go. Severity: 4. It occurs persistently. The problem has not changed. There are no aggravating factors. There are no relieving factors. Associated symptoms include cough. Pertinent negatives include chills and fever. Anxiety Additional infor henry: actually doing pretty well now. reports needing refill on mirtazapine. reports she has been taking mirtazapine regularly, and has a bottle with fill date of 08/29 for 30 tabs. she accidentally dropped a few down the drain and is out now. feels like it has been helpful for sleeping and racing thoughts. PTSD (comments) feels like miguelito glass has been working ok. losing some hair but can deal with that. PTSD Pt taking Halope ridol 2mg as directed. Would like to discuss this with further with PCP. Social work Pt reports she u nable to get in touch with [facility] coordinator. Pt has run out of food- she usually relies on them to organize intsacart to get her groceries. Pt requesting assistance from a [facility] social worker clinical. tourettes pt tried fluphen azine for a bit, but pt reported worsening depression and low mood, then changes to latuda by Dr Puckett. but pt feels like this is making her tics and mood worse. Telemed TELEMEDICINE OSVALDO OINTMENT:THIS PATIENT AND/OR GUARDIAN EXPRESSED INFORMED CONSENT TO THIS SET DESIGNER, PRIOR TO INITIATING THIS TELEMEDICINE ENCOUNTER.THE LIMITATIONS OF TELEMEDICINE MODALITY, AND LIKELY BENEFITS OF IN-PERSON MEDICAL APPOINTMENT VS TELEMEDICINE APPOINTMENTS WERE DISCUSSED WITH PATIENT AND/OR GUARDIANTHE PATIENT AND/OR GUARDIAN EXPRESS UNDERSTANDING OF THE ABOVE, AND ARE DESIROUS OF THIS TELEMEDICINE APPOINTMENT TODAY. DOCUMENTATION INCLUDED ABOVE PER [place] BILL S.50 Housing Pt wants to disc uss something personal -did not convey any more information-denied med reconciliation- I'm sitting on the toilet neck pain Onset: 4 days ag o. The problem is severe. The problem has not changed. The frequency of pain is constant. Location of pain is right posterior neck. Pertinent negatives include syncope, diplopia, amnesia and headache. Additional information: Pt reports she tripped and fell over her walker 4 days ago, landing on the left side. she notes right-sided neck pain. She notes that she did not go to the ED because last time they made me wait 20 hours on a gurney. Pt complaining, asking for a neck brace. Pt denies head strike and anticoagulation. hip pain Onset: 4 days ag o. Severity level is moderate. It occurs constantly. Location of pain is left lateral hip. There is no radiation of pain. The patient describes the pain as sharp. Symptom is aggravated by sitting and standing. She is experiencing decreased mobility, difficulty going to sleep and limping. Pertinent negatives include erythema. COPD (follow up) (comments) Pt s tates she is using inhaler as directed with some relief. Pt states she has a dry/productive cough (white) and is wheezing. Has sinus pain. Pt reports she is dizzy and falling down because of it. Pt stated he prednisone helped her 100% and would like to restart prednisone again. Pt request cough syrup with codeine to help with her sleep. Denies fever, chest pain, sob currently, ear/throat pain. consent TELECOMMUNICATIO NS APPOINTMENT:THIS PATIENT AND GUARDIAN EXPRESSED INFORMED CONSENT TO THIS SET DESIGNER, PRIOR TO INITIATING THIS TELECOMMUNICATIONS ENCOUNTER.I DISCUSSED WITH PATIENT AND GUARDIAN LIMITATIONS OF TELECOMMUNICATION MODALITY, AND LIKELY BENEFITS OF IN-PERSON MEDICAL APPOINTMENT VS TELECOMMUNICATION APPOINTMENTS.Just want to let you know this is not to replace normal office visit we want to make sure we still have your consent to move forward. THE PATIENT AND GUARDIAN EXPRESS UNDERSTANDING OF THE ABOVE, AND ARE DESIROUS OF THIS TELECOMMUNICATION APPOINTMENT TODAY. COPD (follow up) Comments Pt was hoping sh e can cough medicine with codeine. Pt states she her visiting nurse checks her BP. Pt reports her BP was low today. Pt was unable to give me reading. Pt is unable to zoom because she does not have smart phone. tourettes pt repors her to urettes is terrible. swearinga ns pitting, depressed. can't go on i cough The patient desc ribes the cough as hacking. Context: COPD and smoker. There are no relieving factors. Associated symptoms include cough, dyspnea and rhinorrhea. Pertinent negatives include chills, epistaxis, fever and heartburn. Med f/u Pt finished her course of Prednisone and her symptoms have not resolved. Her cough continues and she is feeling sob. Pt would like another round of prednisone. Consent TELECOMMUNICATIO NS APPOINTMENT:THIS PATIENT AND GUARDIAN EXPRESSED INFORMED CONSENT TO THIS SET DESIGNER, PRIOR TO INITIATING THIS TELECOMMUNICATIONS ENCOUNTER.I DISCUSSED WITH PATIENT AND GUARDIAN LIMITATIONS OF TELECOMMUNICATION MODALITY, AND LIKELY BENEFITS OF IN-PERSON MEDICAL APPOINTMENT VS TELECOMMUNICATION APPOINTMENTS.Just want to let you know this is not to replace normal office visit we want to make sure we still have your consent to move forward. THE PATIENT AND GUARDIAN EXPRESS UNDERSTANDING OF THE ABOVE, AND ARE DESIROUS OF THIS TELECOMMUNICATION APPOINTMENT TODAY.Pt has cough and hard catching her breath. he cough is thick white sometimes. Has nausea vomiting and diarrhea, Fnade... . I went to the ER the other day and they did F everything and came back negative . Has wheezing. Pt is smoker, and did smoked and that is when everything started . Pt use to smoke 5-6cigs/day, last time she smoke was about 4 days ago. She was given prednisone 4-5 days tx as 06/12/19 and did helped me a lot , no prednisone was given at the ER per pt. Pt request restart prednisone. Denies fever, chest pain, calf pain, ear/throat/sinus pain, abdominal pain.Pt declined zoom because she doesn't have the technology to do so per pt. Achiness Endorses whole b cy aching and pain, fatigue, dizziness. Not feeling well, wondering if we can do anything, concerned that she might have 'COVID 19'. cold symptoms The patient desc ribes the cough as barking, hacking and productive. It occurs persistently. The problem has become gradually worse. There are no relieving factors. Associated symptoms include cough and fatigue. Pertinent negatives include sore throat. Additional information: --Reporting that she has had a productive cough for the past two weeks was starting on azithromcyin (last day was yesterday) and she is not feeling any better.--Reports it is hard for her to eat, low number of supports right now with [facility] not coming in during COVID-19, and minimal support from her sister who lives in [place]--Has known COPD vs. ILD--Denies exposur cough Onset: 2 days ag o. The patient describes the cough as dry. The problem has become gradually worse. There are no relieving factors. Associated symptoms include chills, dyspnea on exertion, fever, hoarseness, night sweats, sore throat and wheezing. Additional information: Pt has a cough and sore throat for 2 days. Pt knows she has bronchitis last was a few years ago. Pt smokes a pack of cigarettes per day. Pt denies improvement in sx w/ inhaler. Pt refused all vitals other than temperature. depression This is a follow up visit. The patient presents with anxious/fearful thoughts, compulsive thoughts, depressed mood, difficulty falling asleep, difficulty staying asleep, fatigue and self harm. The patient's risk factors include financial worries. The depression is aggravated by conflict or stress. Additional information: Being seen by PT in home and they are concerned about pt's behavior. Burning her face with cigarettes, mentioning some SI, calling and trying to get admitted to [place] [id number]. Pt reports thoughts of SI 4 days ago. Tourette's sxs worsening Wants to discuss meds. back pain (comments) pt continue s to report drining daily, not that much though. continues to say she wants to be admitted to the hospital [place] [id number] for detox. back pain Onset: 3 days ag o. The problem is worsening. Location of pain is lower back. Context: hard fall. Additional information: pt requesting turtle shots for her back pain. Seeing Timothy Starkey, therapist, counsellor. NSV - post hospital stay Pt pres ented today for NSV to discuss the following items, post hospital stay for etoh detox. Pt here w/ casework supervisor from [facility].1) Requests meds be transferred to [facility] and bubble packed. Advised pt I would work on that this week, and call her w/ update. Will ask [facility] if they prefer pt go there in person w/ meds she currently has, so she can get them bubble packed, or if they prefer for her to finish what she has at home and when she is due for a refill start bubble packs then. Pt states understanding and will wait for us to call her about this.2) Pt tells me she would like to go to rehab for alcoholism. I discussed w/ LH -- says [facility] dispatcher tow truck can help schedule, no referral needed. We can have reach out tomorrow to pt to see if any further support/resources needed to help get started w/ this and find a place for rehab. Pt agreeable w/ this plan. [facility] dispatcher tow truck says he can help as well.3) Pt requests Toradol injection for back pain. Discussed w/ provider LH - after reviewing pt's recent labs, hospital visit - provider orders 15mg Toradol.Pt denies any use within the last 24h of NSAIDs or aspirin. Advised pt to hold all NSAIDs for 24 hours after injection. Pt states understanding.Administered Toradol, 15mg, IM, to L deltoid. Pt tolerated well.Wild Vides RN hospital discharge Hospital disc harge follow-upDate of Admission: 09/16/18Date of Discharge: 09/20/18 with Home HealthChief Complaint: EtOH intoxication, hip pain post fallImaging / Procedures: CT head and C-Spine and hip X-ray - no abnormalitiesMedications started / stopped: no changesFollow-up notes: dc with [facility] Home Health d/t family concerns about unsafe home environmentPt did not receive home health care after discharge and could not get into a prison. Has garrison along arms, chest, legs from cigarettes. Has been burning herself.States she is having problems calming down, burning herself because of this. hospital discharge (comments) se augustin starkey therapist at [facility], saw him last monthseeing Dr verde next week diarrhea The problem is w ithout change. Symptom is aggravated by Water. Associated symptoms include abdominal pain, bloating, cramping (abdominal), distention (abdominal) and fecal incontinence. Pertinent negatives include blood in stool and decreased urine output. Additional information: Reports going 13 times in 20 min to the bathroom. States the dicyclomine and the loperamide are not working. Follow Up of abdominal pain Neno tional information: Gastro appt. 06/28. Follow Up of abdomin al pain (comments) still having ongoing loose stools. most days. loperamide helps some but not fully. back pain Location of pain is middle back and lower back. Additional information: Pt hoping for tramadol Rx-on allergy list but pt states she can have with food. States she has knots in her back. diarrhea (comments) drinking a f ew drinks per night. diarrhea Onset: 2 weeks a go. The patient describes it as foul odor, watery and brown. It occurs daily. The problem is worse. Associated symptoms include abdominal pain, fecal incontinence and nausea. Pertinent negatives include blood in stool. Additional information: requesting referral for GI and dramamine for motion sickness. pt states she feels weak and struggles to get around. Back pain The problem is f luctuating. It occurs occasionally. Symptoms are relieved by injection. Additional information: requesting a Toradol shot today. States this is a chronic issue. Abdominal pain The severity of the problem is moderate. The problem is improving. The location is left upper quadrant. The patient reports radiation to the back. Symptoms are relieved by GI cocktail. Associated symptoms include nausea and vomiting. Pertinent negatives include fever. Additional information: GI cocktail helped a lot. Went to ED recently, normal head CT and EKG. Toradol Inj Provider request s pt receive injection of 30 mg of Toradol for pain.Pt denies any use within the last 24h of NSAIDs or aspirin; denies active or historical peptic ulcer or GI bleedAdvised pt to hold all NSAIDs for 24 hours after injection; recommended use of Tylenol if needed. Advised patient to follow up with provider if needed. Pt verbalized understanding of all instructions; denies further questions/concerns at this time.Administered: Toradol, 30mg, IM, to L deltoid. Pt tolerated well.Wild Vides RN Insomnia The patient pres ents with sleep problems. The symptoms are worsening. These complaints are continual. Relevant history: a BMI of 29.52. Denies relieving factors.Additional information: states only sleeping 2 hours a night. I want something for sleep . Nausea Onset: 1 month a go. It occurs persistently. Denies aggravating factors. Denies relieving factors. Associated symptoms include abdominal pain, dizziness, lightheadedness and vomiting. Additional information: Pt states she had three syncopal episodes this past month.. Nausea (comments) Jennifer is here with her case management rn. She is very concerned about getting to the food shelf in time to get food. SHe seems in no distress. fatigue Additional infor mation: pt requesting melatonin 5mg to help with sleeping - reports difficulty with staying asleep. reports already taking trazodone 300mg. Itching The symptoms beg an 1 week ago. The symptoms are reported as being mild. The symptoms occur constantly. The location is entire body. Relieving factors include nothing. Pertinent negatives include no rash present, no bumps. She states the symptoms are acute and are unchanged. pt states she thinks she has full body lice and crabs, reports sexual activity with a male partner who does not have any itching present Itching (comments) reports bed b ugs were eradicated a month ago Vaginal Discharge Presently the patient is experiencing vaginal itching and vaginal discharge. Character is watery. Presently the patient is not experiencing vaginal irritation and vaginal odor. The patient is postmenopausal. patient denies condom use or contraceptive use. Her symptoms are associated with itching skin of vaginal/groin but she denies dysuria or urinary frequency. Additional information: States she was sexually active up until 2 weeks. nausea Onset: 1 year ag o. It occurs daily. Context: at night and during daytime. Associated symptoms include cough, fever and vomiting. Pertinent negatives include abdominal pain, chest pain, decreased appetite, dizziness, lightheadedness and weakness. Additional information: requesting RF of anti nausea medication. not a new issues. at baseline -- no abd pain.. cough The patient desc ribes the cough as productive and white mucous. It occurs persistently. The problem has become gradually worse. Context: COPD, GERD symptoms and smoker. Relieving factors include bronchodilators. Associated symptoms include cough, fever, nasal congestion, sore throat and wheezing. Pertinent negatives include hemoptysis. nausea (comments) 2.5 weeksusing inhalers runny discharge from vagina for 2.5 weeks. sometimes Follow Up of Post Tr aumatic Stress Disorder dizziness Onset was 2 nicole hs ago. The problem is worsening. It occurs daily. The patient describes it as (an) imbalance.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 Dis Nos-[place] Renew medications Related to Sylvie nt Dis Nos-pelvis Review medications Related to Imelda int Dis Nos-pelvis Review medication side effects R elated to Joint Dis Nos-[place] Renew medications Related to Sylvie nt Dis Nos-pelvis Renew medications Review medications Review medication side effects Call if symptoms persist Prescribe medications Related to Joint Dis Nos-pelvis Review medications Related to Imelda int Dis Nos-pelvis Review medication side effects R elated to Joint Dis Nos-pelvis Order labs/studies Related to Jt Stiffness Nec-pelvis Call if symptoms persist Related to Jt Stiffness Nec-pelvis Renew medications Related to Jt Stiffness Nec-pelvis Review medications Related to Jt Stiffness Nec-pelvis Review medication side effects R elated to Jt Stiffness Nec-pelvis Review medications Related to Ho rdeolum Externum Review medication side effects R elated to Hordeolum Externum Prescribe medications Related to Hordeolum Externum Renew medications Related to Sylvie nt Dis Nos-pelvis Review medications Related to Imelda int Dis Nos-pelvis Review medication side effects R elated to Joint Dis Nos-pelvis Prescribe medications Related to Candidal Vulvovaginitis Review medication side effects R elated to Candidal Vulvovaginitis Call if symptoms persist Related to Candidal Vulvovaginitis Review medications Related to Imelda int Dis Nos-pelvis Review medication side effects R elated to Joint Dis Nos-pelvis Renew medications Related to Sylvie nt Dis Nos-pelvis Order labs/studies Related to Na usea With Vomiting Go to ER if symptoms persist or worsen Related to Nausea With Vomiting Call if symptoms persist Related to Nausea With Vomiting Review medication side effects R elated to Nausea With Vomiting Prescribe medications Related to Nausea With Vomiting Review medications Related to Na usea With Vomiting Review medication side effects R elated to Joint Dis Nos-pelvis Prescribe medications Related to Joint Dis Nos-pelvis Review medications Related to Imelda int Dis Nos-pelvis Review medications Related to As eptic Necrosis Femur Review medication side effects R elated to Aseptic Necrosis Femur Call if symptoms persist Related to Aseptic Necrosis Femur Renew medications Related to Ase ptic Necrosis Femur Renew medications Related to Cou gh Review medications Related to Co ugh Review medication side effects R elated to Cough Prescribe medications Related to Cough Prescribe medications Related to Joint Dis Nos-pelvis Review medications Related to Imelda int Dis Nos-pelvis Review medication side effects R elated to Joint Dis Nos-pelvis Prescribe medications Related to Aseptic Necrosis Femur Review medications Related to As eptic Necrosis Femur Review medication side effects R elated to Aseptic Necrosis Femur Review medications Related to Co ugh Review medication side effects R elated to Cough Prescribe medications Related to Cough Renew medications Related to Cou gh Order labs/studies Related to Co ugh Prescribe medications Related to Joint Pain-l/leg Review medications Related to Imelda int Pain-l/leg Review medication side effects R elated to Joint Pain-l/leg Review medications Related to Imelda int Pain-l/leg Review medication side effects R elated to Joint Pain-l/leg Call if symptoms persist Related to Joint Pain-l/leg Renew medications Related to Sylvie nt Pain-l/leg Review medication side effects R elated to Dizziness And Giddiness Review medications Related to Di zziness And Giddiness Prescribe medications Related to Dizziness And Giddiness Prescribe medications Related to Jt Stiffness Nec-pelvis Review medications Related to Jt Stiffness Nec-pelvis Review medication side effects R elated to Jt Stiffness Nec-pelvis Review medications Related to Imelda int Dis Nos-pelvis Renew medications Related to [place] sea With Vomiting Review medication side effects R elated to Nausea With Vomiting Go to ER if symptoms persist or worsen Related to Nausea With Vomiting Call if symptoms persist Related to Nausea With Vomiting Prescribe medications Related to Nausea With Vomiting Review medications Related to Na usea With Vomiting Renew medications Related to Ase ptic Necrosis Femur Review medications Related to As eptic Necrosis Femur Review medication side effects R elated to Aseptic Necrosis Femur Prescribe medications Related to Aseptic Necrosis Femur Prescribe medications Related to Joint Pain-l/leg Renew medications Related to Sylvie nt Pain-l/leg Review medications Related to Imelda int Pain-l/leg Review medication side effects R elated to Joint Pain-l/leg Review medication side effects R elated to Aseptic Necrosis Femur Renew medications Related to Ase ptic Necrosis Femur Review medications Related to As eptic Necrosis Femur Go to ER if symptoms persist or worsen Related to Joint Pain-l/leg Prescribe medications Related to Joint Pain-l/leg Renew medications Related to Sylvie nt Pain-l/leg Review medications Related to Imelda int Pain-l/leg Review medication side effects R elated to Joint Pain-l/leg Call if symptoms persist Related to Joint Pain-l/leg Renew medications Related to Ase ptic Necrosis Femur Review medications Related to As eptic Necrosis Femur Review medication side effects R elated to Aseptic Necrosis Femur Renew medications Related to Sylvie nt Pain-l/leg Review medications Related to Imelda int Pain-l/leg Review medication side effects R elated to Joint Pain-l/leg Review medication side effects R elated to Joint Pain-l/leg Review medications Related to Imelda int Pain-l/leg Prescribe medications Related to Joint Pain-l/leg Review medication side effects R elated to Joint Pain-l/leg Prescribe medications Related to Joint Pain-l/leg Review medications Related to Imelda int Pain-l/leg Renew medications Review medications Review medication side effects Call if symptoms persist Related to Contusion Of Toe Review medications Related to Co ntusion Of Toe Review medication side effects R elated to Contusion Of Toe Review medication side effects R elated to Contusion Nos Renew medications Related to Per sistent Insomnia Review medications Related to Pe rsistent Insomnia Review medication side effects R elated to Persistent Insomnia Renew medications Related to Ten delfina Headache Review medication side effects R elated to Tension Headache Review medications Related to Te nsion Headache Renew medications Related to Sylvie nt Pain-l/leg Review medications Related to Imelda int Pain-l/leg Review medication side effects R elated to Joint Pain-l/leg Renew medications Related to Sylvie nt Pain-l/leg Review medications Related to Imelda int Pain-l/leg Review medication side effects R elated to Joint Pain-l/leg Review medication side effects R elated to Joint Pain-l/leg Prescribe medications Related to Joint Pain-l/leg Renew medications Related to Sylvie nt Pain-unspec Renew medications Related to Sylvie nt Pain-l/leg Prescribe medications Related to Joint Pain-l/leg Review medication side effects R elated to Joint Pain-l/leg Assessments Type Assessment Date No Information
[2024-12-17] VITALS (14 sets, daily range): BP systolic 95–158; BP diastolic 70–93; PULSE 95–115; RESP 12–18; TEMP 36.4–37.3; O2SAT 92–100; BMI 26.6
--- NOTE | ~2024-12-17 | XR_ITS ---
CLINICAL HISTORY: CVC placement 1 view chest x-ray Comparison: CR/SR - XR CHEST 1 VIEW - 12/30/24 16:[address]/SR - CT ANGIO CHEST PE PROTOCOL - 12/26/24 02:41 EDT Findings: New indeterminate lucencies projecting over the right upper thorax and a pneumothorax is not excluded. Recommend repeat chest x-ray or chest CT. Low lung volumes. Similar appearance of diffuse bilateral interstitial pulmonary opacities. There is new subcutaneous emphysema in the left supraclavicular region likely related to recent line placement. Endotracheal tube has been placed in the interim with tip 4.3 cm superior to the ashutosh in good position. Heart size is normal. Interval placement of left internal jugular central venous catheter in good position with tip over the superior vena cava. Esophageal temperature probe over the mid mediastinum. No acute fracture. Interval placement of esophagogastric tube with tip and side-hole over the stomach in good position. IMPRESSION: 1. New indeterminate lucencies projecting over the right upper thorax and a pneumothorax is not excluded. Recommend repeat chest x-ray or chest CT. 2. Endotracheal tube has been placed in the interim with tip 4.3 cm superior to the ashutosh in good position. 3. Interval placement of left internal jugular central venous catheter in good position with tip over the superior vena cava. 4. Interval placement of esophagogastric tube with tip and side-hole over the stomach in good position. 5. Similar appearance of diffuse bilateral interstitial pulmonary opacities. 6. There is new subcutaneous emphysema in the left supraclavicular region likely related to recent line placement. This document has been electronically signed by: Trip Larson DO on 01/05/2025 21:58:55
--- NOTE | ~2024-12-17 | XR_ITS ---
CLINICAL HISTORY: sob 1 view chest Comparison: CR/SR - XR CHEST 1 VIEW - 12/17/24 08:19 EDT Findings: Cardiac and mediastinal contours are normal. Coarse interstitial prominence with scattered peribronchial thickening. Faint ground-glass densities are present. No effusion. No pneumothorax. No acute osseous finding. Impression: Coarse interstitial prominence with peribronchial thickening and faint ground-glass densities. This is slightly increased. Correlation for viral infectious process. This document has been electronically signed by: Colten Wadsworth MD on 12/19/2024 07:12:22
--- NOTE | ~2024-12-17 | XR_ITS ---
CLINICAL HISTORY: worsening O2 sats 1 view chest x-ray Comparison: Prior chest radiographs most recently on 12/21/2024 Findings: Endotracheal tube, nasogastric tube and left chest tube have been removed. Persistent coarse interstitial densities. No pneumothorax. No large pleural effusion. Heart size at the upper end of normal. No acute soft tissue or osseous abnormality. Impression: 1. Relatively unchanged appearance of moderate diffuse bilateral coarse interstitial densities. 2. Additional findings as above. This document has been electronically signed by: Suleman Gamboa MD on 12/26/2024 00:34:08
--- NOTE | ~2024-12-17 | XR_ITS ---
CLINICAL HISTORY: ETT placement 1 view chest x-ray. Comparison: CR/SR - XR CHEST 1V - 12/20/24 07:02 EDT Findings: Endotracheal tube in place with the distal tip approximately 3 cm above the ashutosh. Enteric tube identified coursing below the diaphragm with the distal tip projecting over the upper abdomen near the midline, at the expected location of the mid to distal stomach. Pigtail style drainage catheter redemonstrated over the left lung base, possibly consistent with a chest tube. Interstitial prominence redemonstrated diffusely throughout the bilateral lungs. No pneumothorax or significant pleural effusion visualized. Heart size is at the upper limits of normal. Probable small to moderate hiatal hernia.No acute fracture visualized. Impression: 1. Tubes in place as described above with redemonstration of interstitial prominence diffusely throughout the bilateral lungs. 2. Small to moderate hiatal hernia. This document has been electronically signed by: Cameron Matthews MD on 12/22/2024 02:32:43
--- NOTE | ~2024-12-17 | XR_ITS ---
CLINICAL HISTORY: ? Pneumo post CVL no increase O2 requirements 1 view chest x-ray. Comparison: CR/CT - XR CHEST 1V - 01/05/25 20:20 EDT Findings: Stable positioning of the left internal jugular central venous catheter. Enteric tube identified coursing below the diaphragm. The distal tip of the enteric tube appears to project over the left upper abdominal quadrant, at the expected location of the proximal to mid stomach. Endotracheal tube in place in stable position above the ashutosh. Ill-defined opacities are redemonstrated diffusely throughout the bilateral lungs. Minimal right apical pneumothorax. Vague curvilinear lucencies are present over the left chest, not significantly changed in appearance as compared to the prior exam. Heart size normal. Impression: 1. Support lines and tubes in place as described above with a minimal right apical pneumothorax. 2. Small curvilinear lucencies redemonstrated over the left chest. These findings are nonspecific but may be seen with a minimal left pneumothorax or a small amount of pneumomediastinum. 3. Ill-defined opacities redemonstrated diffusely throughout the bilateral lungs. Small bilateral pleural effusions are not excluded. Overall, no significant interval change. This document has been electronically signed by: Cameron Matthews MD on 01/06/2025 00:27:04
--- NOTE | ~2024-12-17 | XR_ITS ---
EXAMINATION: XR CHEST 1 VIEW HISTORY: hypoxemia COMPARISON: Comparison is made with the prior examination dated 12/19/2024. FINDINGS: A single AP portable view of the chest performed at 7:02 AM is submitted. There has been interval placement of a chest tube at the left lung base. Coarse increased interstitial markings are again noted. There may be a trace left pleural effusion. There is no pneumothorax or pulmonary vascular congestion. The heart is normal in size. The bones are intact. XR/XR chest 1V IMPRESSION: Left chest tube in place. No pneumothorax. Coarse increased interstitial markings. Electronically signed by: Wilfred Soliz MD 12/20/2024 07:26 AM EDT
--- NOTE | ~2024-12-17 | CT_ITS ---
CLINICAL HISTORY: Worsening hypoxia, tachycardia CT angiography chest with contrast. 3D Postprocessing. Comparison: CR - XR CHEST 1V - 12/25/24 23:24 EDT CR - XR CHEST 1V - 12/19/24 05:[address]/SR - CT ABDOMEN PELVIS WITH IV CONTRAST - 12/17/24 09:59 EDT CR/SR - XR CHEST 1 VIEW - 12/17/24 08:19 EDT Findings: No pulmonary arterial embolus. Diminutive bilateral atria with prominent interatrial fat density, which may represent an atrial septal lipoma versus prominent mediastinal fat from diminutive atria. The aorta is within normal limits. Moderate hiatal hernia. Diffuse bilateral pulmonary ground-glass and reticular opacities with relative subpleural sparing, increased compared to prior. No pneumothorax. Small pleural effusions. No acute abnormality in the upper abdomen.Right upper pole medullary nephrocalcinosis. No acute fracture or dislocation. IMPRESSION: Diffuse ground-glass and reticular opacities with small pleural effusions, progressed compared to 12/17/2024. Findingsmay represent pulmonary edema/ARDS, infection, or acute exacerbation of chronic lung disease. No pulmonary arterial embolus. Moderate hiatal hernia. Diminutive bilateral atria with prominent interatrial fat density, which may represent an atrial septal lipoma versus prominent mediastinal fat from diminutive atria. This document has been electronically signed by: Reinaldo Reed MD on 12/26/2024 03:36:39
--- NOTE | ~2024-12-17 | CT_ITS ---
EXAMINATION: CT HEAD WITHOUT CONTRAST CLINICAL INFORMATION: Altered Mental status COMPARISON: None available. TECHNIQUE: Contiguous axial imaging was performed from the skull base to vertex without intravenous administration of contrast. This CT examination was performed using dose optimization techniques as appropriate, variously including the following: *Automated exposure control *Adjustment of mA and/or kV according to patient size (this includes techniques or standardized protocols for targeted exams where dose is matched to indication/reason for exam; i.e. extremities or head) *Use of iterative reconstruction technique FINDINGS: There is no acute ischemic change. There is no intracranial hemorrhage. There is no mass-effect or midline shift. There is mild frontal lobe atrophy. Basal cisterns and ventricles are within normal limits for age/cerebral volume. Orbits are symmetrical and unremarkable. Paranasal sinuses and mastoid air cells are pneumatized. There are no bony abnormalities. CT/CT head/brain wo IV con IMPRESSION: No acute intracranial abnormality. Mild frontal lobe atrophy. Electronically signed by: Feng Malhotra MD 12/17/2024 10:28 AM EDT
--- NOTE | ~2024-12-17 | XR_ITS ---
EXAMINATION: XR CHEST 1 VIEW HISTORY: cough COMPARISON: There are no prior studies available for comparison. FINDINGS: A single AP portable view of the chest performed at 8:19 AM is submitted. There are diffusely increased interstitial markings. There is opacity is seen. There is no pleural effusion, pneumothorax, or pulmonary vascular congestion. The heart is normal in size. There is mild degenerative disc disease of the spine. There are old healed left rib fractures. XR/XR chest 1V IMPRESSION: Diffuse increased interstitial markings. Focal airspace opacity is identified. Electronically signed by: Wilfred Soliz MD 12/17/2024 08:34 AM EDT
--- NOTE | ~2024-12-17 | XR_ITS ---
EXAMINATION: XR CHEST 1 VIEW HISTORY: SOB COMPARISON: Comparison is made with the prior examination dated 12/25/2024. FINDINGS: Two AP portable views of the chest performed at 2:27 PM are submitted. There are low lung volumes. Again seen are coarse increased interstitial markings, likely representing fibrosis. There are no focal airspace opacities. There is no pleural effusion, pneumothorax, or pulmonary vascular congestion. The heart is normal in size. The bones are intact. XR/XR chest 1V IMPRESSION: Low lung volumes. Pulmonary fibrosis. No acute cardiopulmonary abnormality. Electronically signed by: Wilfred Soliz MD 12/30/2024 02:48 PM EDT
--- NOTE | ~2024-12-17 | MR_ITS ---
EXAMINATION: MR BRAIN WITHOUT CONTRAST CLINICAL INFORMATION: Aphasia. COMPARISON: Correlated to CT dated December 17, 2024. TECHNIQUE: MRI of the brain was obtained using routine sequences without contrast. FINDINGS: Patient's motion artifact. No restricted diffusion. No acute intracranial hemorrhage, mass effect, midline shift, hydrocephalus or herniation. Pradhan-white matter differentiation is normal. Posterior cranial fossa contents demonstrated no signal abnormality or mass effect. Normal position of the cerebellar tonsils. Intrasellar CSF prominence suggesting diaphragmatic sella insufficiency. No signal abnormality or masses in the sellar suprasellar region. Prominence of the extra-axial CSF spaces cerebral sulci involving frontotemporal lobes and to a lesser extent parietal. Flow-void signal within the main cerebral vessels is normal. Hyperintense T2 FLAIR signal within the mastoid air cells and likely tympanic cavities. Mucosal thickening, paranasal sinuses mostly ethmoid air cells. Hyperintense T2 FLAIR signal within the nasopharynx. MR/MR head/brain wo con IMPRESSION: No acute stroke/nonhemorrhagic ischemia. Bifrontal temporal lobe atrophy. Probable effusions, mastoid air cells. Secretions in the nasopharynx. Electronically signed by: Shadi Milan MD 12/31/2024 01:53 PM EDT
--- NOTE | ~2024-12-17 | XR_ITS ---
EXAMINATION: XR CHEST CLINICAL INFORMATION: intubation COMPARISON: X-ray 12/30/2024 TECHNIQUE: Frontal view of the chest was obtained. FINDINGS: Endotracheal tube present, tip approximately 3.4 cm from the ashutosh. Nasogastric tube extends subdiaphragmatically, with the side-port and the tip of the tube in the expected region of the stomach. Overlying monitoring leads. Cardiomediastinal silhouette is within normal limits, stable. Low lung volumes. Redemonstrated are coarse increased interstitial markings in bilateral lungs. Hazy patchy opacities in left lower lung, new/more prominent as compared to previous. No significant effusion. No pulmonary mass or congestion. No pneumothorax is seen. No acute findings in the upper abdomen. No acute osseous findings. XR/XR chest 1V IMPRESSION: * Endotracheal tube tip approximately 3.4 cm from the ashutosh. * Low lung volumes. Diffuse coarse increased interstitial markings, overall similar to previous, suggestive of the known pulmonary fibrosis. Hazy patchy opacities in the left lower lung, raises the possibility of airspace disease superimposed on the chronic changes. Electronically signed by: Mejia Castellanos MD 12/30/2024 04:36 PM EDT
--- NOTE | ~2024-12-17 | CT_ITS ---
EXAMINATION: CT ANGIOGRAM ABDOMEN AND PELVIS CLINICAL INFORMATION: Colitis, evaluate for evidence of ischemia COMPARISON: 12/17/2024 TECHNIQUE: Multiple axial images were obtained through the abdomen and pelvis following the administration of 80 mL of Omnipaque 350 intravenous contrast. Images were reviewed on a dedicated 3-D workstation. This CT examination was performed using dose optimization techniques as appropriate, variously including the following: *Automated exposure control *Adjustment of mA and/or kV according to patient size (this includes techniques or standardized protocols for targeted exams where dose is matched to indication/reason for exam; i.e. extremities or head) *Use of iterative reconstruction technique FINDINGS: Images are mild to moderately degraded related to the arms which were not elevated during the study and replacement on the left. This resulted in streak/beam hardening artifact. Lung bases demonstrate diffuse groundglass opacity with interlobular septal thickening, increased since the prior. Trace pneumothorax is identified in the anteromedial pleural space. Pneumopericardium and pneumomediastinum is present. Liver and gallbladder are unremarkable. There is no biliary ductal dilation. Pancreas demonstrates thick low attenuation in the head similar to the prior possibly related to fatty infiltration. Adrenal glands are unremarkable. Kidneys demonstrate multiple low attenuating lesions, likely simple renal cysts. However, again identified is is an exophytic lesion in the lateral lower pole the right kidney 8 mm in diameter that demonstrates higher attenuation and possible enhancing septation. Gastrointestinal tract: Again seen is sliding hiatal hernia involving gastric fundus. There is an NG tube terminating within the body of the stomach. There is a rectal catheter secured with a fluid-filled balloon. Abdominal wall is intact. Lymph nodes: No adenopathy is identified. Vascular: Mild atherosclerotic calcifications are present. No mesenteric vascular occlusion or hemodynamically significant stenosis is identified. Pelvic viscera: Uterus and adnexa are unremarkable. There is no free fluid Skeletal: Again seen is a serpentine sclerotic area involving the anterior subchondral bone of the right femoral head with cystic changes involving 04/02/1935 percent of the weightbearing region. Total replacement of the left hip is partially imaged and appears unremarkable. CT/CT angio abdomen pelvis IMPRESSION: There is a small pneumopericardium, pneumomediastinum with a small anterior right pneumothorax of uncertain origin. Correlate clinically. This could be iatrogenic, but infection with gas-forming organism is not ruled out. Diffuse groundglass densities with small layering pleural effusions and interlobular septal thickening could be related to ARDS, pneumonia, pulmonary edema, or other abnormality. No evidence of mesenteric vascular occlusion or bowel wall thickening. Low-attenuation involving the head of pancreas without deformity. This could represent fatty infiltration. There is no associated fat stranding. Correlate for signs symptoms of pancreatitis. Indeterminate 8 mm cyst in the inferior lateral right kidney may contain enhancing septations. Follow-up nonemergent renal MRI without and with IV contrast. Stable sliding hernia involving gastric fundus. NG tube terminates in the gastric body. 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 Fleischner guidelines were followed. Electronically signed by: Feng Malhotra MD 01/07/2025 03:10 PM EDT
--- NOTE | ~2024-12-17 | XR_ITS ---
EXAMINATION: XR CHEST CLINICAL INFORMATION: ? Pntx COMPARISON: January 05, 2025. TECHNIQUE: Frontal view of the chest was obtained. FINDINGS: Bilateral pulmonary reticular nodular pattern with the patchy opacities both lungs. No gross pneumothorax. No gross pleural effusion. Left-sided central venous line, endotracheal tube and NG tube remain in unchanged position. Cardiomediastinal silhouette size is normal. XR/XR chest 1V IMPRESSION: No gross pneumothorax. Overall worsening pulmonary edema versus multifocal pneumonia versus pneumonitis versus drug toxicity versus ARDS among other etiologies. Electronically signed by: Shadi Milan MD 01/07/2025 08:23 AM EDT
--- NOTE | ~2024-12-17 | CT_ITS ---
EXAMINATION: CT ABDOMEN AND PELVIS WITH CONTRAST CLINICAL INFORMATION: distention, FTT, abdominal pain COMPARISON: None available. TECHNIQUE: Multidetector volumetric images were obtained from the superior aspect of the liver through the pubic symphysis following administration 85 mL of Omnipaque 350 intravenous contrast. Sagittal and coronal reformatted images were obtained on the technologist's workstation. Oral contrast: No This CT examination was performed using dose optimization techniques as appropriate, variously including the following: *Automated exposure control *Adjustment of mA and/or kV according to patient size (this includes techniques or standardized protocols for targeted exams where dose is matched to indication/reason for exam; i.e. extremities or head) *Use of iterative reconstruction technique FINDINGS: LUNG BASES: There are patchy groundglass and reticular densities somewhat sparing the posterior segments of the lower lobes LIVER, GALLBLADDER, AND BILIARY TREE: The liver is normal in size, shape, and attenuation. No focal hepatic lesion or biliary ductal dilatation is present. The gallbladder is unremarkable with no evidence of radiopaque gallstones, gallbladder wall thickening, or obvious pericholecystic inflammatory changes. PANCREAS: Unremarkable. SPLEEN: Unremarkable. ADRENAL GLANDS: Unremarkable. KIDNEYS AND URETERS: There are multiple circumscribed low attenuating lesions in the right greater than left kidneys consistent with benign simple renal cysts. Small exophytic cysts in the lower pole the right kidney are higher in density and likely contain proteinaceous debris/hemorrhage. There is no hydronephrosis and no stones. BLADDER: Posterior base of the bladder is obscured on the right side plate to left total hip arthroplasty. Bladder is unremarkable otherwise. GASTROINTESTINAL TRACT: There is a moderate size sliding hiatal hernia involving the gastric fundus. There is moderate stool in the sigmoid colon and rectum. ABDOMINAL WALL: No significant hernia is appreciated. LYMPH NODES: Normal. VASCULAR: Atherosclerotic calcifications are present. PELVIC VISCERA: Uterus and ovaries are unremarkable. There is no free fluid OSSEOUS STRUCTURES: Total hip replacement not completely imaged on the left. There are serpentine sclerotic bands involving the anterior subchondral bone of the right femoral head with cystic changes. There is no subchondral collapse. Approximately 25-33 percent of the weightbearing subchondral bone is involved. CT/CT abdomen pelvis w IV con IMPRESSION: Patchy groundglass and reticular lung opacities somewhat sparing the posterior segments lower lobes could be chronic but could be related to an atypical pneumonia/pneumonitis. Ficat stage II AVN involving 25-33% of the weightbearing subchondral bone in the anterior right femoral head. Moderate sliding hiatal hernia involving gastric fundus. Moderate stool in the sigmoid colon and rectum. Probable high density/hemorrhagic cysts in the lower pole the right kidney. Consider nonemergent ultrasound to confirm cystic nature of the lesions. Fleischner guidelines were followed. Electronically signed by: Feng Malhotra MD 12/17/2024 10:41 AM EDT
--- NOTE | 2024-12-17 08:17 | ECG_ITS ---
Test Reason : abd pain Blood Pressure : */* mmHG Vent. Rate : 105 BPM Atrial Rate : 105 BPM P-R Int : 158 ms QRS Dur : 66 ms QT Int : 326 ms P-R-T Axes : 30 19 50 degrees QTcB Int : 430 ms Sinus tachycardia with Premature atrial complexes Nonspecific T wave abnormality Abnormal ECG No previous ECGs available Referred By: Tia Blake Electronically Signed By: DENNIS YEBOAH MD
--- NOTE | 2024-12-17 08:22 | ED_ITS ---
HPI - General Adult General Chief complaint: General Medical Stated complaint: UTI X5D,86% ON RA,95% 2LPM,AMS FROM SNF PER EMS Time Seen by Provider: 12/17/24 08:25 Source: patient, EMS and old records reviewed Mode of arrival: EMS Limitations: other (cognitive impairment) History of Present Illness ED Provider: LISETH HPI narrative: 59 yo female with PMH Of anxiety, IBS, HLD, OCD, COPD, cognitive impairment, UTI, GERD, migraines, hypothyroidism, schizoaffective, PTSD here with c/o recent UTI per EMS from SNF - states patient has been on cipro for 5 days. She is compliant with the medications. They note during this time increased confusion, EMS found patient to be 86% on RA. Patient tells me she feels short of breath and her abdomen hurt. She then gets upset and states quit poking and prodding me. EMS states staff at [facility] told them patient is normally ambulatory and she is alert and oriented. MD complaint: abd pain, confusion, dyspnea Onset (ago): day(s) (5) Location: abdomen Radiation: non-radiation Severity: moderate Quality: aching Pain Consistency: constant Relieving factors: none Exacerbating factors: none Associated symptoms: confusion and shortness of breath Treatments prior to arrival: none Related Data Allergies Allergy/AdvReac Type Severity Reaction Status Date / Time celecoxib Allergy Unknown Verified 12/17/24 08:10 fish derived (fish) Allergy Unknown Verified 12/17/24 08:10 gabapentin Allergy Unknown Verified 12/17/24 08:10 guanfacine Allergy Unknown Verified 12/17/24 08:10 ibuprofen Allergy Unknown Verified 12/17/24 08:10 olanzapine Allergy Unknown Verified 12/17/24 08:10 Penicillins Allergy Unknown Verified 12/17/24 08:10 prazosin Allergy Unknown Verified 12/17/24 08:10 Review of Systems 2 Review of Systems: ROS unable to be obtained due to altered mental status PMFSH Past Medical History Attestation statement: The following information was validated with the patient. Source: old records reviewed Medical History HLD (hyperlipidemia) UTI (urinary tract infection) PTSD (post-traumatic stress disorder) Diabetes Schizoaffective disorder Social History Social History (Updated 12/17/24 @ 08:26 by Tia Blake DO) Patient Tobacco Use Status: Tobacco use Unknown Advance Directives: No Advance Directives Information Provided: No Do you have a plan to hurt others: No Plan Physical Exam ED Vital Signs: Vital Signs - 24 hr 12/17/24 08:09 12/17/24 08:17 12/17/24 08:59 Temperature 98.8 F Pulse Rate 109 H 107 H 102 H Respiratory Rate 14 15 14 Blood Pressure 100/75 95/70 132/80 Pulse Oximetry 94 95 95 Oxygen Delivery Method Room Air Room Air Room Air 12/17/24 09:20 12/17/24 09:49 12/17/24 10:20 Temperature 97.5 F Pulse Rate 99 95 98 Respiratory Rate 14 14 15 Blood Pressure 133/82 140/92 H 114/93 H Pulse Oximetry 98 100 100 Oxygen Delivery Method Room Air Room Air Room Air 12/17/24 10:46 Temperature Pulse Rate 99 Respiratory Rate 12 Blood Pressure 158/86 H Pulse Oximetry 98 Oxygen Delivery Method Room Air BMI result Body Mass Index 26.6 Appearance: Alert. Oriented X1. No acute distress. agitated Eyes: Pupils equal, round and reactive to light. ENT: Pharynx normal. Neck: Normal inspection. Neck supple. CVS: tachycardic heart rate and rhythm. Pulses normal. Respiratory: No respiratory distress. Breath sounds bases diminished Abdomen: Soft but reports ttp throughout no rebound, umbilicus mild erythema noted but no abscess. Skin: Skin warm and dry. Normal skin color. Normal skin turgor. Extremities: No lower extremity edema. Neuro: Oriented X 1. No motor deficit. No sensory deficit. will not participate in exam Medications Administered Discontinued Medications Generic Name Dose Route Start Last Admin Trade Name Tonie PRN Reason Stop Dose Admin Ceftriaxone Sodium 1 gm 12/17/24 08:28 12/17/24 08:53 Ceftriaxone Sodium 1 Gm Vial IVPUSH 12/17/24 08:29 1 gm ONCE ONE Administration Acetaminophen 1,000 mg in 100 mls @ 400 mls/hr 12/17/24 08:16 12/17/24 09:08 Ofirmev IV 12/17/24 08:30 Infused ONCE ONE Infusion Lactated Ringer's 1,000 mls @ 999 mls/hr 12/17/24 08:27 12/17/24 10:20 Lr IV 12/17/24 09:27 Infused .Q1H1M ONE Infusion Azithromycin 500 mg/ Sodium 250 mls @ 125 mls/hr 12/17/24 08:48 12/17/24 08:58 Chloride IV 12/17/24 10:47 125 mls/hr ONCE ONE Administration Lactated Ringer's 1,000 mls @ 999 mls/hr 12/17/24 08:55 12/17/24 10:45 Lr IV 12/17/24 09:55 Infused .Q1H1M ONE Infusion Iohexol 100 ml 12/17/24 10:10 12/17/24 10:10 Iohexol 350 Mg/Ml 100 Ml Infus..Btl IV 12/17/24 10:11 85 ml ONCE ONE Administration Medical Decision Making Medical Decision Making [facility] Narrative: 59 yo female with PMH Of anxiety, IBS, HLD, OCD, COPD, cognitive impairment, DM, UTI, GERD, migraines, hypothyroidism, schizoaffective, PTSD here with c/o increased AMS and abdominal pain for 5 days currently on cipro for UTI at this time will obtain labs, cultures, she will be started on empiric ceftriaxone. CT head for ICH, CT abdomen pelvis for source. She could have pneumonia - her O2 sat when positioned is > 94% on RA. She has no CP. VTE possible but low susp at this time. Infection suspecteed at 827am sepsis alert called. Differential Diagnosis Differential Diagnoses: The differential diagnosis associated with the presentation includes UTI, pneumonia, intra abdominal pathology, viral syndrome Admission/Observation Consideration of admission/observation: Escalation of care including admission/observation considered admit for further workup Consult Healthcare Provider Management of the patient was discussed with: Hospitalist (will admit) Lab Data [facility] Lab Attestation statement: I reviewed the patient's lab results. 12/17/24 08:43 12/17/24 08:43 Labs: Lab Results 12/17/24 12/17/24 12/17/24 Range/Units 08:42 08:43 08:49 WBC 11.9 H (4.8-10.8) X10*3/uL RBC 4.88 (4.20-5.50) X10*6/uL Hgb 11.5 L (12.0-16.0) g/dl Hct 33.7 L (37.0-47.0) % MCV 69.1 L (80.0-98.0) fL MCH 23.6 L (27.0-33.0) pg MCHC 34.1 (31.0-35.0) g/dl RDW 15.7 (11.0-16.0) % Plt Count 280 (160-400) X10*3/uL MPV 8.9 L (9.4-12.3) fL Immature Gran % (Auto) 0.6 H (0.0-0.4) % Neut % (Auto) 79.1 H (45-73) % Lymph % (Auto) 8.8 L (20-40) % [place] % (Auto) 9.5 (2-11) % Eos % (Auto) 1.5 (0-4) % Baso % (Auto) 0.5 (0-2) % Lymph # (Auto) 1.1 L (1.2-4.9) X10*3/uL [place] # (Auto) 1.1 (0.1-1.2) X10*3/uL Eos # (Auto) 0.2 (0.0-0.4) X10*3/uL Baso # (Auto) 0.1 (0.0-0.2) X10*3/uL Abs Immat Gran (auto) 0.07 H (0.00-0.03) X10*3/uL Absolute Neuts (auto) 9.4 H (2.0-8.3) x10*3/uL Absolute Nucleated RBC 0.000 (0.0-0.012) X10*3/uL Nucleated RBC % (auto) 0.0 (0.0-0.2) /100WBC VBG pH 7.38 (7.32-7.43) VBG pCO2 30 mmHg VBG pO2 43 mmHg VBG HCO3 18 L (22-26) mmol/L VBG O2 Saturation 63.0 % VBG Base Excess -5.5 mmol/L Sodium 139 (135-145) mmol/L Potassium 4.0 (3.3-5.1) mmol/L Chloride 111 H (96-108) mmol/L Carbon Dioxide 18 L (22-29) mmol/L Anion Gap 14 (12-20) BUN 20 H (9-16) mg/dL Creatinine 0.94 (0.5-1.4) mg/dL Estim Creat Clear Calc 58.1 Estimated GFR > 60 Random Glucose 152 H (60-115) mg/dL Lactic Acid 2.1 H* (0.5-2.0) mmol/L Calcium 9.5 (8.4-10.2) mg/dL Magnesium 1.8 (1.6-2.6) mg/dL Total Bilirubin 0.5 (0.0-1.0) mg/dL Direct Bilirubin 0.3 (0.0-0.5) mg/dL AST 127 H (5-31) U/L ALT 136 H (0-31) U/L Alkaline Phosphatase 118 H (39-117) U/L Ammonia 20 (13-55) umol/L Troponin I High Sens 3.4 (<3.5-17.0) ng/L C-Reactive Protein 22.84 H (< or = 0.50) mg/dL Total Protein 6.7 (6.5-8.0) g/dL Albumin 3.6 (3.5-5.0) g/dL Lipase 8 (8-78) U/L Urine Color Urine Appearance Urine pH (5.0-9.0) Ur Specific [place] (1.005-1.025) Urine Protein (Neg-Trace) mg/dL Urine Glucose (UA) (Negative) mg/dL Urine Ketones (Negative) mg/dL Urine Blood (Negative) Urine Nitrite (Negative) Ur Leukocyte Esterase (Negative) Urine RBC (0-2) /HPF Urine WBC (0-5) /HPF Ur Squamous Epith Cells (0-2) /HPF Urine Bacteria (None Seen) Hyaline Casts (0-2) /LPF COVID-19 (ARCENIO) Negative (Negative) COVID-19 Clin Com See Note Influenza Type A (HECTOR) Negative (Negative) Influenza Type B (HECTOR) Negative (Negative) Influenza A & B Note See Note 12/17/24 Range/Units 09:51 WBC (4.8-10.8) X10*3/uL RBC (4.20-5.50) X10*6/uL Hgb (12.0-16.0) g/dl Hct (37.0-47.0) % MCV (80.0-98.0) fL MCH (27.0-33.0) pg MCHC (31.0-35.0) g/dl RDW (11.0-16.0) % Plt Count (160-400) X10*3/uL MPV (9.4-12.3) fL Immature Gran % (Auto) (0.0-0.4) % Neut % (Auto) (45-73) % Lymph % (Auto) (20-40) % [place] % (Auto) (2-11) % Eos % (Auto) (0-4) % Baso % (Auto) (0-2) % Lymph # (Auto) (1.2-4.9) X10*3/uL [place] # (Auto) (0.1-1.2) X10*3/uL Eos # (Auto) (0.0-0.4) X10*3/uL Baso # (Auto) (0.0-0.2) X10*3/uL Abs Immat Gran (auto) (0.00-0.03) X10*3/uL Absolute Neuts (auto) (2.0-8.3) x10*3/uL Absolute Nucleated RBC (0.0-0.012) X10*3/uL Nucleated RBC % (auto) (0.0-0.2) /100WBC VBG pH (7.32-7.43) VBG pCO2 mmHg VBG pO2 mmHg VBG HCO3 (22-26) mmol/L VBG O2 Saturation % VBG Base Excess mmol/L Sodium (135-145) mmol/L Potassium (3.3-5.1) mmol/L Chloride (96-108) mmol/L Carbon Dioxide (22-29) mmol/L Anion Gap (12-20) BUN (9-16) mg/dL Creatinine (0.5-1.4) mg/dL Estim Creat Clear Calc Estimated GFR Random Glucose (60-115) mg/dL Lactic Acid (0.5-2.0) mmol/L Calcium (8.4-10.2) mg/dL Magnesium (1.6-2.6) mg/dL Total Bilirubin (0.0-1.0) mg/dL Direct Bilirubin (0.0-0.5) mg/dL AST (5-31) U/L ALT (0-31) U/L Alkaline Phosphatase (39-117) U/L Ammonia (13-55) umol/L Troponin I High Sens (<3.5-17.0) ng/L C-Reactive Protein (< or = 0.50) mg/dL Total Protein (6.5-8.0) g/dL Albumin (3.5-5.0) g/dL Lipase (8-78) U/L Urine Color Dark Yellow Urine Appearance Clear Urine pH 6.0 (5.0-9.0) Ur Specific [place] 1.025 (1.005-1.025) Urine Protein 30 (1+) H (Neg-Trace) mg/dL Urine Glucose (UA) Negative (Negative) mg/dL Urine Ketones Negative (Negative) mg/dL Urine Blood Negative (Negative) Urine Nitrite Negative (Negative) Ur Leukocyte Esterase Trace H (Negative) Urine RBC 0-2 (0-2) /HPF Urine WBC 0-5 (0-5) /HPF Ur Squamous Epith Cells 0-2 (0-2) /HPF Urine Bacteria None Seen (None Seen) Hyaline Casts 0-2 (0-2) /LPF COVID-19 (ARCENIO) (Negative) COVID-19 Clin Com Influenza Type A (HECTOR) (Negative) Influenza Type B (HECTOR) (Negative) Influenza A & B Note Independent Interpretation I performed an independent interpretation of an: EKG, Plain X-Ray (pneumonia) and CT Scan (no abd pathology) Interpretation: Rate: 105 Rhythm: sinus tach with PACs [place]: normal Normal P waves. Normal ABHINAV. Normal QRS complex. ST T wave : no JONATHAN, flat t waves throughout qTC: 430 prior studies: no JONATHAN The study has been interpreted contemporaneously by me. . Radiology Impression Discussion of test interpretation with radiology: I have reviewed the radiologist's reading. Independent Historian Clinical information obtained from an independent historian. History obtained from or confirmed by: EMS External Record Review External record reviewed: Outpatient record Discharge Plan Discharge Clinical Impression: Pneumonia, Acidosis, lactic, Encephalopathy acute Patient Disposition: Admitted As Inpatient Print Language: Guamanian
[2024-12-17] MEDS: Lactated Ringers 1,000 ML 999 ML IV ×2 (08:44→09:02)
[2024-12-17 08:49] LABS: MANUAL DIFF FLAG NO
[2024-12-17 08:51] LABS: Hematocrit 33.7 % (37.0-47.0); Hemoglobin 11.5 g/dl (12.0-16.0); Imm Gran Abs Auto 0.07 X10*3/uL (0.00-0.03); Imm Gran Pct Auto 0.6 % (0.0-0.4); Lymphocytes Absolute Auto 1.1 X10*3/uL (1.2-4.9); Mean Corpuscular HGB Conc 34.1 g/dl (31.0-35.0); Mean Corpuscular Hemoglobin 23.6 pg (27.0-33.0); Mean Corpuscular Volume 69.1 fL (80.0-98.0); NRBC Abs Auto 0.000 X10*3/uL (0.0-0.012); NRBC Pct Auto 0.0 /100WBC (0.0-0.2); Platelet Count 280 X10*3/uL (160-400); Red Blood Count 4.88 X10*6/uL (4.20-5.50); White Blood Count 11.9 X10*3/uL (4.8-10.8)
[2024-12-17 08:52] LABS: Venous Blood Gas Refer to POC result
[2024-12-17 08:54] LABS: VBG HCO3 18 mmol/L (22-26); VBG O2 % Saturation 63.0 %
[2024-12-17 09:00] LABS: Ammonia 20 umol/L (13-55)
[2024-12-17 09:06] LABS: Alanine Aminotransferase 136 U/L (0-31); Albumin Level 3.6 g/dL (3.5-5.0); Alkaline Phosphatase 118 U/L (39-117); Anion Gap 14 (12-20); Aspartate Amino Transferase 127 U/L (5-31); Blood Urea Nitrogen 20 mg/dL (9-16); Calcium 9.5 mg/dL (8.4-10.2); Carbon Dioxide 18 mmol/L (22-29); Chloride 111 mmol/L (96-108); Creatinine Clr Calc Pharmacy 58.1; Estimated Glomerular Filt Rate > 60; Lipase 8 U/L (8-78); Magnesium 1.8 mg/dL (1.6-2.6); Potassium 4.0 mmol/L (3.3-5.1); Sodium 139 mmol/L (135-145); Total Protein 6.7 g/dL (6.5-8.0)
[2024-12-17 09:10] LABS: COVID-19 Test Negative (Negative); IDNOW Serial# 55D5AD1C; IDNOW Serial# 58CA691E; Influenza B2 Negative (Negative)
[2024-12-17 09:15] LABS: Troponin-I High Sensitivity 3.4 ng/L (<3.5-17.0)
--- OUTSIDE RECORDS SUMMARY | 2024-12-17 09:33 | XMS_ITS | Encounter Summary ---
Author Organization [facility] Address [address] [place] [address] Care Team Providers Care Neurological Physiotherapist Name Role Phone Caleb Mckeon MD Primary Care Provider [phone] Encounter Details Date Type Department Care Team (Latest Contact Info) Description 07/12/2024 Lab Requisition [facility] - Main Lab [address] [place] [address] Caleb Mckeon MD [address] [place] [address] [address] [place], [place] Schizoaffective disorder, bipolar type (CMS/HCC V24, CMS/HCC V28); Hypothyroidism, unspecified Social History Tobacco Use Types Packs/Day Years Used Date Smoking Tobacco: Never Assessed Comments Unknown Sex and Gender Information Value Date Recorded Sex Assigned at Not on file Legal Sex Female 3:40 PM EDT Gender Identity Not on file Sexual Orientation Not on file documented as of this encounter Plan of Treatment Not on file documented as of this encounter Procedures Procedure Name Priority Date/Time Associated Diagnosis Comments THYROID STIMULATING HORMONE Routine 07/12/2024 6:57 AM EDT Schizoaffective disorder, bipolar type (CMS/HCC V24, CMS/HCC V28) Hypothyroidism, unspecified documented in this encounter Results * Thyroid stimulating hormone (07/12/2024 6:57 AM EDT) TSH 1.08 0.40 - 4.00 mcIU/mL LAB CHEMISTRY METHOD 07/12/2024 10:46 AM EDT [facility] Blood Venous blood specimen / Unknown 07/12/2024 6:57 AM EDT 07/12/2024 8:12 AM EDT us Caleb Mckeon MD LAB BLOOD ORDERABLES Final [facility]ul t [facility] [address] [place] [address], documented in this encounter Visit Diagnoses Diagnosis Schizoaffective disorder, bipolar type (CMS/HCC V24, CMS/HCC V28) Schizoaffective disorder, unspecified condition Hypothyroidism, unspecified documented in this encounter Care Teams Neurological Physiotherapist Relationship Specialty Start Date End Date Caleb Mckeon MD [address] [place] [address] PCP - General Internal Medicine 05/31/24 documented as of this encounter
--- OUTSIDE RECORDS SUMMARY | 2024-12-17 09:34 | XMS_ITS | Encounter Summary ---
Author Organization [employer] Address [address] [place] [address] Care Team Providers Care Cv Rn Name Role Phone Caleb Mckeon MD Primary Care Provider [phone] Encounter Details Date Type Department Care Team (Late st Contact Info) Description 12/17/2024 Lab Requisition [facility] - Main Lab 299 [facility] [place] [address] Caleb Mckeon MD [address] [place] [address] [address] [place], [place] Other seizures (CMS/HCC V24, CMS/HCC V28); Gastro-esophageal reflux disease without esophagitis Social History Tobacco Use Types Packs/Day Years Used Date Smoking Tobacco: Never Assessed Comments Unknown Sex and Gender Information Value Date Recorded Sex Assigned at Not on file Legal Sex Female 3:40 PM EDT Gender Identity Not on file Sexual Orientation Not on file documented as of this encounter Plan of Treatment Pending Results Name Type Priority Associated Diagnoses Date /Time Thyroid stimulating hormone Lab Routine Other seizures (CMS/HCC V24, CMS/HCC V28) Gastro-esophageal reflux disease without esophagitis 12/17/2024 6:39 AM EDT documented as of this encounter Procedures Procedure Name Priority Date/Time Associated Diagnosis Comments CBC WITH AUTO DIFFERENTIAL Routine 12/17/2024 6:39 AM EDT Other seizures (CMS/HCC V24, CMS/HCC V28) Gastro-esophageal reflux disease without esophagitis CBC AND DIFFERENTIAL Routine 12/17/2024 6:39 AM EDT Other seizures (CMS/HCC V24, CMS/HCC V28) Gastro-esophageal reflux disease without esophagitis BASIC METABOLIC PANEL Routine 12/17/2024 6:39 AM EDT Other seizures (CMS/HCC V24, CMS/HCC V28) Gastro-esophageal reflux disease without esophagitis documented in this encounter Results * (ABNORMAL) CBC auto differential (12/17/2024 6:39 AM EDT) [facility] Signature WBC 9.0 4.8 - 10.8 K/mcL LAB HEMETOLOGY METHOD 12/17/2024 8:18 AM [facility] LAB RBC 4.50 3.80 - 4.80 M/mcL LAB HEMETOLOGY METHOD [facility] Hemoglobin 10.2(L) 11.5 - 16.0 g/dL LAB HEMETOLOGY METHOD 12/17/2024 8:18 AM [facility] LAB Hematocrit 31.5(L) 35.0 - 47.0 % LAB HEMETOLOGY METHOD 12/17/2024 8:18 AM [facility] LAB MCV 70.3(L) 79.0 - 98.0 FL LAB HEMETOLOGY METHOD 12/17/2024 8:18 AM [facility] LAB MCH 22.8(L) 27.0 - 32.0 pcg LAB HEMETOLOGY METHOD 12/17/2024 8:18 AM [facility] LAB MCHC 32.4 32.0 - 37.0 g/dL LAB HEMETOLOGY METHOD 12/17/2024 8:18 AM [facility] LAB RDW 15.7(H) 11.0 - 15.0 % LAB HEMETOLOGY METHOD 12/17/2024 8:18 AM [facility] LAB Platelets 228 130 - 400 K/mcL LAB HEMETOLOGY METHOD 12/17/2024 8:18 AM [facility] LAB MPV 11.3(H) 7.0 - 11.0 FL LAB HEMETOLOGY METHOD 12/17/2024 8:18 AM [facility] LAB NRBC 0.0 <1.0 % LAB HEMETOLOGY METHOD 12/17/2024 8:18 AM [facility] LAB NRBC Absolute 0.00 <0.10 K/mcL LAB HEMETOLOGY METHOD 12/17/2024 8:18 AM [facility] LAB Neutrophils Relative 70.0 % LAB HEMETOLOGY METHOD 12/17/2024 8:18 AM [facility] LAB Lymphocytes Relative 14.8 % LAB HEMETOLOGY METHOD 12/17/2024 8:18 AM [facility] LAB Monocytes Relative 11.7 % LAB HEMETOLOGY METHOD 12/17/2024 8:18 AM [facility] LAB Eosinophils Relative 2.5 % LAB HEMETOLOGY METHOD 12/17/2024 8:18 AM [facility] LAB Basophils Relative 0.6 % LAB HEMETOLOGY METHOD 12/17/2024 8:18 AM [facility] LAB Immature Granulocytes Relative 0.4 % LAB HEMETOLOGY METHOD 12/17/2024 8:18 AM [facility] LAB Neutrophils Absolute 6.31 1.50 - 7.00 K/mcL LAB HEMETOLOGY METHOD 12/17/2024 8:18 AM [facility] LAB Lymphocytes Absolute 1.34 1.00 - 5.00 K/mcL LAB HEMETOLOGY METHOD 12/17/2024 8:18 AM [facility] LAB Monocytes Absolute 1.06(H) 0.20 - 1.00 K/mcL LAB HEMETOLOGY METHOD 12/17/2024 8:18 AM [facility] LAB Eosinophils Absolute 0.23 0.00 - 0.50 K/mcL LAB HEMETOLOGY METHOD 12/17/2024 8:18 AM [facility] LAB Basophils Absolute 0.05 0.00 - 0.20 K/mcL LAB HEMETOLOGY METHOD 12/17/2024 8:18 AM [facility] LAB Immature Granulocytes Absolute 0.04(H) 0.00 - 0.03 K/mcL LAB HEMETOLOGY METHOD 12/17/2024 8:18 AM [facility] LAB Blood Venous blood specimen / Unknown 12/17/2024 6:39 AM EDT 12/17/2024 7:48 AM EDT us Caleb Mckeon MD LAB BLOOD ORDERABLES Final Resul t [facility] LAB [address] [place] [address], [place] [phone] * (ABNORMAL) Basic metabolic panel (12/17/2024 6:39 AM EDT) Sodium 137 133 - 145 mmol/L LAB CHEMISTRY METHOD 12/17/2024 8:22 AM [facility] Potassium 4.8 3.5 - 5.5 mmol/L LAB CHEMISTRY METHOD 12/17/2024 8:22 AM [facility] LAB Comment:Hemolysis present Chloride 112(H) 96 - 110 mmol/L LAB CHEMISTRY METHOD 12/17/2024 8:22 AM [facility] LAB CO2 17(L) 21 - 32 mmol/L LAB CHEMISTRY METHOD 12/17/2024 8:22 AM [facility] LAB Anion Gap 8 3 - 11 LAB CHEMISTRY METHOD 12/17/2024 8:22 AM [facility] Glucose 111(H) 70 - 100 mg/dL LAB CHEMISTRY METHOD 12/17/2024 8:22 AM [facility] BUN 19 5 - 25 mg/dL LAB CHEMISTRY METHOD 12/17/2024 8:22 AM [facility] LAB Creatinine 0.97 0.50 - 1.10 mg/dL LAB CHEMISTRY METHOD 12/17/2024 8:22 AM [facility] LAB eGFR 67 >=60 mL/min/1. 73m2 LAB CHEMISTRY METHOD 12/17/2024 8:22 AM EDT [facility] LAB Comment:Calculation based on the Chronic Kidney Disease Epidemiology Collaboration (CKD-EPI) equation refit without adjustment for race. BUN/Creatinine Ratio 19.6 LAB CHEMISTRY METHOD 12/17/2024 8:22 AM EDT [facility] LAB Calcium 9.2 8.5 - 10.5 mg/dL LAB CHEMISTRY METHOD 12/17/2024 8:22 AM EDT [facility] LAB Blood Venous blood specimen / Unknown 12/17/2024 6:39 AM EDT 12/17/2024 7:48 AM EDT us Caleb Mckeon MD LAB BLOOD ORDERABLES Final Resul t [facility] LAB [address] [place] [address], [place] [phone] documented in this encounter Visit Diagnoses Diagnosis Other seizures (CMS/HCC V24, CMS/HCC V28) Gastro-esophageal reflux disease without esophagitis documented in this encounter Care Teams Cv Rn Relationship Specialty Start Date End Date Caleb Mckeon MD [address] [place] [id number] PCP - General Internal Medicine 05/31/24 documented as of this encounter
--- OUTSIDE RECORDS SUMMARY | 2024-12-17 09:34 | XMS_ITS | Encounter Summary ---
Author Organization [employer] Address [address] [place] [address] Care Team Providers Care Supervisor Gate Services Name Role Phone Caleb Mckeon MD Primary Care Provider [phone] Encounter Details Date Type Department Care Team (Late st Contact Info) Description 09/06/2024 Lab Requisition [facility] - Main Lab 299 [facility] [place] [address] Caleb Mckeon MD [address] [place] [address] [address] [place], [place] Encounter for other specified special examinations; Type 2 diabetes mellitus without complications (CMS/HCC V24, CMS/HCC V28) Social History Tobacco Use Types Packs/Day Years [...] Diagnosis Comments CBC WITH AUTO DIFFERENTIAL Routine 09/06/2024 7:04 AM EDT Encounter for other specified special examinations Type 2 diabetes mellitus without complications (CMS/HCC V24, CMS/HCC V28) LAVENDER - EDTA Routine 09/06/2024 7:04 AM EDT Encounter for other specified special examinations Type 2 diabetes mellitus without complications (CMS/HCC V24, CMS/HCC V28) CBC AND DIFFERENTIAL Routine 09/06/2024 7:04 AM EDT Encounter for other specified special examinations Type 2 diabetes mellitus without complications (CMS/HCC V24, CMS/HCC V28) HEMOGLOBIN A1C Routine 09/06/2024 7:04 AM EDT Encounter for other specified special examinations Type 2 diabetes mellitus without complications (CMS/HCC V24, CMS/HCC V28) documented in this encounter Results * Lavender tube (09/06/2024 7:04 AM EDT) [facility] Extra Tube Hold for add-ons. 09/06/2024 10:01 AM EDT [facility] LAB Comment:Auto resulted. Blood Venous blood specimen / Unknown 09/06/2024 7:04 AM EDT 09/06/2024 8:08 AM EDT us Caleb Mckeon MD LAB BLOOD ORDERABLES Final Resul t [facility] LAB [address] [place] [address], * (ABNORMAL) CBC auto differential (09/06/2024 7:04 AM EDT) [facility] WBC 7.3 4.8 - 10.8 K/mcL LAB HEMETOLOGY METHOD 09/06/2024 8:28 AM [facility] LAB RBC 4.00 3.80 - 4.80 M/mcL LAB HEMETOLOGY METHOD 09/06/2024 8:28 AM [facility] LAB Hemoglobin 8.9(L) 11.5 - 16.0 g/dL LAB HEMETOLOGY METHOD 09/06/2024 8:28 AM [facility] LAB Hematocrit 28.9(L) 35.0 - 47.0 % LAB HEMETOLOGY METHOD 09/06/2024 8:28 AM [facility] LAB MCV 73.2(L) 79.0 - 98.0 FL LAB HEMETOLOGY METHOD 09/06/2024 8:28 AM [facility] LAB MCH 22.5(L) 27.0 - 32.0 pcg LAB HEMETOLOGY METHOD 09/06/2024 8:28 AM [facility] LAB MCHC 30.8(L) 32.0 - 37.0 g/dL LAB HEMETOLOGY METHOD 09/06/2024 8:28 AM [facility] LAB RDW 22.8(H) 11.0 - 15.0 % LAB HEMETOLOGY METHOD 09/06/2024 8:28 AM [facility] LAB Platelets 207 130 - 400 K/mcL LAB HEMETOLOGY METHOD 09/06/2024 8:28 AM [facility] LAB MPV 9.4 7.0 - 11.0 FL LAB HEMETOLOGY METHOD 09/06/2024 8:28 AM [facility] NRBC 0.0 <1.0 % LAB HEMETOLOGY METHOD 09/06/2024 8:28 AM [facility] NRBC Absolute 0.00 <0.10 K/mcL LAB HEMETOLOGY METHOD 09/06/2024 8:28 AM [facility] Neutrophils Relative 57.3 % LAB HEMETOLOGY METHOD 09/06/2024 8:28 AM [facility] Lymphocytes Relative 24.9 % LAB HEMETOLOGY METHOD 09/06/2024 8:28 AM [facility] Monocytes Relative 14.4 % LAB HEMETOLOGY METHOD 09/06/2024 8:28 AM [facility] Eosinophils Relative 2.5 % LAB HEMETOLOGY METHOD 09/06/2024 8:28 AM [facility] Basophils Relative 0.4 % LAB HEMETOLOGY METHOD 09/06/2024 8:28 AM [facility] Immature Granulocytes Relative 0.5 % LAB HEMETOLOGY METHOD 09/06/2024 8:28 AM [facility] Neutrophils Absolute 4.19 1.50 - 7.00 K/mcL LAB HEMETOLOGY METHOD 09/06/2024 8:28 AM [facility] Lymphocytes Absolute 1.82 1.00 - 5.00 K/[facility] LAB HEMETOLOGY METHOD 09/06/2024 8:28 AM EDT [facility] Monocytes Absolute 1.05(H) 0.20 - 1.00 K/[facility] LAB HEMETOLOGY METHOD 09/06/2024 8:28 AM EDT [facility] Eosinophils Absolute 0.18 0.00 - 0.50 K/[facility] LAB HEMETOLOGY METHOD 09/06/2024 8:28 AM EDT [facility] Basophils Absolute 0.03 0.00 - 0.20 K/[facility] LAB HEMETOLOGY METHOD 09/06/2024 8:28 AM EDT [facility] Immature Granulocytes Absolute 0.04(H) 0.00 - 0.03 K/[facility] LAB HEMETOLOGY METHOD 09/06/2024 8:28 AM EDT [facility] Blood Venous blood specimen / Unknown 09/06/2024 7:04 AM EDT 09/06/2024 7:52 AM EDT us Caleb Mckeon MD LAB BLOOD ORDERABLES Final Resul t [facility] [address] [place] [address], * Hemoglobin A1c (09/06/2024 7:04 AM EDT) Hemoglobin A1C 6.2 <6.5 % LAB CHEMISTRY METHOD 09/06/2024 10:31 PM EDT [facility] Mean Bld Glu Estim. 131 mg/dL LAB CHEMISTRY METHOD 09/06/2024 10:31 PM EDT [facility] Blood Venous blood specimen / Unknown 09/06/2024 7:04 AM EDT 09/06/2024 7:52 AM EDT us Caleb Mckeon MD LAB BLOOD ORDERABLES Final Resul t [facility] LAB [address] [place] [address], documented in this encounter Visit Diagnoses Diagnosis Encounter for other specified special examinations Type 2 diabetes mellitus without complications (CMS/HCC V24, CMS/HCC V28) documented in this encounter Care Teams Supervisor Gate Services Relationship Specialty Start Date End Date Caleb Mckeon MD [address] [place] [address] PCP - General Internal Medicine 05/31/24 documented as of this encounter
--- OUTSIDE RECORDS SUMMARY | 2024-12-17 09:34 | XMS_ITS | Encounter Summary ---
Author Organization [employer] Address [address] [place] [address] Care Team Providers Care Machine Bender Name Role Phone Caleb Mckeon MD Primary Care Provider [phone] Encounter Details Date Type Department Care Team (Late st Contact Info) Description 08/14/2024 Lab Requisition [facility] - Main Lab 299 [facility] [place] [address] Caleb Mckeon MD [address] [place] [address] [address] [place] Abnormal weight loss Social History Tobacco Use Types Packs/Day Years [...] Procedure Name Priority Date/Time Associated Diagnosis Comments COMPLETE BLOOD COUNT Routine 08/14/2024 6:57 AM EDT Abnormal weight loss TRIIODOTHYRONINE FREE Routine 08/14/2024 6:57 AM EDT Abnormal weight loss THYROID STIMULATING HORMONE Routine 08/14/2024 6:57 AM EDT Abnormal weight loss THYROXINE FREE Routine 08/14/2024 6:57 AM EDT Abnormal weight loss PREALBUMIN Routine 08/14/2024 6:57 AM EDT Abnormal weight loss COMPREHENSIVE METABOLIC PANEL Routine 08/14/2024 6:57 AM EDT Abnormal weight loss documented in this encounter Results * Thyroid stimulating hormone (08/14/2024 6:57 AM EDT) TSH 0.87 0.40 - 4.00 mcIU/mL LAB CHEMISTRY METHOD 08/14/2024 10:52 AM EDT [facility] Blood Venous blood specimen / Unknown 08/14/2024 6:57 AM EDT 08/14/2024 8:35 AM EDT us Caleb Mckeon MD LAB BLOOD ORDERABLES Final Resul t Performing Organization Address City/[facility] Co de Phone Number [facility] LAB [address] [place] [address], [place] [phone] * (ABNORMAL) Prealbumin (08/14/2024 6:57 AM EDT) [facility] Prealbumin 15(L) 18 - 45 mg/dL LAB CHEMISTRY METHOD 08/14/2024 9:32 AM EDT [facility] Blood Venous blood specimen / Unknown 08/14/2024 6:57 AM EDT 08/14/2024 8:35 AM EDT us Caleb Mckeon MD LAB BLOOD ORDERABLES Final Resul t Performing Organization Address [facility] de Phone Number [facility] [address] [place] [address], [place] [phone] * Thyroxine free (08/14/2024 6:57 AM EDT) [facility] Free T4 0.89 0.70 - 1.80 ng/dL LAB CHEMISTRY METHOD 08/14/2024 10:51 AM EDT [facility] Blood Venous blood specimen / Unknown 08/14/2024 6:57 AM EDT 08/14/2024 8:35 AM EDT us Caleb Mckeon MD LAB BLOOD ORDERABLES Final Resul t Performing Organization Address City/[facility] de Phone Number [facility] [address] [place] [address], [place] [phone] * Triiodothyronine free (08/14/2024 6:57 AM EDT) Pathologist [facility] T3, Free 248 230 - 420 pcg/dL LAB CHEMISTRY METHOD 08/14/2024 10:52 AM EDT [facility] Blood Venous blood specimen / Unknown 08/14/2024 6:57 AM EDT 08/14/2024 8:35 AM EDT Caleb Mckeon MD LAB BLOOD ORDERABLES Final Resul t [facility] [address] [place] [address], [place] [phone] * (ABNORMAL) Complete blood count (08/14/2024 6:57 AM EDT) [facility] WBC 7.1 4.8 - 10.8 K/mcL LAB HEMETOLOGY METHOD 08/14/2024 9:08 AM [facility] RBC 3.90 3.80 - 4.80 M/mcL LAB HEMETOLOGY METHOD 08/14/2024 9:08 AM [facility] Hemoglobin 8.9(L) 11.5 - 16.0 g/dL LAB HEMETOLOGY METHOD 08/14/2024 9:08 AM [facility] Hematocrit 28.4(L) 35.0 - 47.0 % LAB HEMETOLOGY METHOD 08/14/2024 9:08 AM [facility] MCV 72.8(L) 79.0 - 98.0 FL LAB HEMETOLOGY METHOD 08/14/2024 9:08 AM [facility] MCH 22.8(L) 27.0 - 32.0 pcg LAB HEMETOLOGY METHOD 08/14/2024 9:08 AM [facility] MCHC 31.3(L) 32.0 - 37.0 g/dL LAB HEMETOLOGY METHOD 08/14/2024 9:08 AM EDT [facility] RDW 20.7(H) 11.0 - 15.0 % LAB HEMETOLOGY METHOD 08/14/2024 9:08 AM EDT [facility] Platelets 358 130 - 400 K/mcL LAB HEMETOLOGY METHOD 08/14/2024 9:08 AM EDT [facility] MPV 9.2 7.0 - 11.0 FL LAB HEMETOLOGY METHOD 08/14/2024 9:08 AM EDT [facility] NRBC 0.0 <1.0 % LAB HEMETOLOGY METHOD 08/14/2024 9:08 AM EDT [facility] NRBC Absolute 0.00 <0.10 K/mcL LAB HEMETOLOGY METHOD 08/14/2024 9:08 AM T [facility] Blood Venous blood specimen / Unknown 08/14/2024 6:57 AM EDT 08/14/2024 8:35 AM EDT us Caleb Mckeon MD LAB BLOOD ORDERABLES Final Resul t [facility] [address] [place] [address], * (ABNORMAL) Comprehensive metabolic panel (08/14/2024 6:57 AM EDT) Sodium 138 133 - 145 mmol/L LAB CHEMISTRY METHOD 08/14/2024 9:32 AM EDT [facility] Potassium 4.4 3.5 - 5.5 mmol/L LAB CHEMISTRY METHOD 08/14/2024 9:32 AM EDT [facility] Chloride 107 96 - 110 mmol/L LAB CHEMISTRY METHOD 08/14/2024 9:32 AM EDT [facility] CO2 23 21 - 32 mmol/L LAB CHEMISTRY METHOD 08/14/2024 9:32 AM [facility] Anion Gap 8 3 - 11 LAB CHEMISTRY METHOD 08/14/2024 9:32 AM [facility] Glucose 141(H) 70 - 100 mg/dL LAB CHEMISTRY METHOD 08/14/2024 9:32 AM [facility] BUN 12 5 - 25 mg/dL LAB CHEMISTRY METHOD 08/14/2024 9:32 AM [facility] Creatinine 1.06 0.50 - 1.10 mg/dL LAB CHEMISTRY METHOD 08/14/2024 9:32 AM [facility] eGFR 60 >=60 mL/min/1. 73m2 LAB CHEMISTRY METHOD 08/14/2024 9:32 AM [facility] Comment:Calculation based on the Chronic Kidney Disease Epidemiology Collaboration (CKD-EPI) equation refit without adjustment for race. BUN/Creatinine Ratio 11.3 LAB CHEMISTRY METHOD 08/14/2024 9:32 AM [facility] Calcium 8.8 8.5 - 10.5 mg/dL LAB CHEMISTRY METHOD 08/14/2024 9:32 AM [facility] AST (SGOT) 14 10 - 42 unit/L LAB CHEMISTRY METHOD 08/14/2024 9:32 AM [facility] ALT (SGPT) 22 10 - 60 unit/L LAB CHEMISTRY METHOD 08/14/2024 9:32 AM [facility] Alkaline Phosphatase 99 42 - 121 unit/L LAB CHEMISTRY METHOD 08/14/2024 9:32 AM [facility] Total Protein 5.7(L) 6.0 - 8.0 g/dL LAB CHEMISTRY METHOD 08/14/2024 9:32 AM [facility] Albumin 2.5(L) 3.2 - 5.0 g/dL LAB CHEMISTRY METHOD 08/14/2024 9:32 AM [facility] Total Bilirubin 0.2 0.0 - 1.4 mg/dL LAB CHEMISTRY METHOD 08/14/2024 9:32 AM EDT [facility] Blood Venous blood specimen / Unknown 08/14/2024 6:57 AM EDT 08/14/2024 8:35 AM EDT us Caleb Mckeon MD LAB BLOOD ORDERABLES Final Resul t [facility] [address] [place] [address], [place] [phone] documented in this encounter Visit Diagnoses Diagnosis Abnormal weight loss Loss of weight documented in this encounter Care Teams Machine Bender Relationship Specialty Start Date End Date Caleb Mckeon MD [address] [place] [address] PCP - General Internal Medicine 05/31/24 documented as of this encounter
--- OUTSIDE RECORDS SUMMARY | 2024-12-17 09:35 | XMS_ITS | Encounter Summary ---
Author Organization [employer] Address [address] [place] [address] Care Team Providers Care Spring Former Hand Name Role Phone Caleb Mckeon MD Primary Care Provider [phone] Encounter Details Date Type Department Care Team (Late st Contact Info) Description 10/23/2024 Lab Requisition [facility] - Main Lab [address] [facility] [place] [address] Caleb Mckeon MD [address] [place] [address] [address] [place], [place] Type 2 diabetes mellitus without complications (CMS/HCC V24, CMS/[facility] V28); Other specified hypothyroidism; Dizziness and giddiness Social History Tobacco Use Types Packs/Day Years Used Date Smoking Tobacco: Never Assessed Comments Unknown Sex and Gender Information Value Date Recorded Sex Assigned at Not on file Legal Sex Female 3:40 PM EDT Gender Identity Not on file Sexual Orientation Not on file documented as of this encounter Plan of Treatment Pending Results Name Type Priority Associated Diagnoses Date /Time Lavender tube Lab Routine Type 2 diabetes mellitus without complications (CMS/HCC V24, CMS/HCC V28) Other specified hypothyroidism Dizziness and giddiness 10/23/2024 7:09 AM EDT documented as of this encounter Procedures Procedure Name Priority Date/Time Associated Diagnosis Comments CBC WITH AUTO DIFFERENTIAL Routine 10/23/2024 7:09 AM EDT Type 2 diabetes mellitus without complications (CMS/HCC V24, CMS/HCC V28) Other specified hypothyroidism Dizziness and giddiness CBC AND DIFFERENTIAL Routine 10/23/2024 7:09 AM EDT Type 2 diabetes mellitus without complications (CMS/HCC V24, CMS/HCC V28) Other specified hypothyroidism Dizziness and giddiness THYROID STIMULATING HORMONE Routine 10/23/2024 7:09 AM EDT Type 2 diabetes mellitus without complications (CMS/HCC V24, CMS/HCC V28) Other specified hypothyroidism Dizziness and giddiness HEMOGLOBIN A1C Routine 10/23/2024 7:09 AM EDT Type 2 diabetes mellitus without complications ([facility] [place]24, [facility] [place]28[place] Other specified hypothyroidism Dizziness and giddiness AMMONIA Routine 10/23/2024 7:09 AM EDT Type 2 diabetes mellitus without complications ([facility] [place]24, [facility] [place] V28) Other specified hypothyroidism Dizziness and giddiness COMPREHENSIVE METABOLIC PANEL Routine 10/23/2024 7:09 AM EDT Type 2 diabetes mellitus without complications ([facility] [place] V24, [facility] [place] V28) Other specified hypothyroidism Dizziness and giddiness documented in this encounter Results * (ABNORMAL) CBC auto differential (10/23/2024 7:09 AM EDT) [facility] WBC 8.4 4.8 - 10.8 K/mcL LAB HEMETOLOGY METHOD 10/23/2024 8:08 AM [facility] LAB RBC 4.30 3.80 - 4.80 M/[facility] LAB HEMETOLOGY METHOD 10/23/2024 8:08 AM [facility] LAB Hemoglobin 10.4(L) 11.5 - 16.0 g/dL LAB HEMETOLOGY METHOD 10/23/2024 8:08 AM [facility] LAB Hematocrit 31.6(L) 35.0 - 47.0 % LAB HEMETOLOGY METHOD 10/23/2024 8:08 AM [facility] MCV 73.5(L) 79.0 - 98.0 FL LAB HEMETOLOGY METHOD 10/23/2024 8:08 AM [facility] LAB MCH 24.2(L) 27.0 - 32.0 pcg LAB HEMETOLOGY METHOD 10/23/2024 8:08 AM [facility] LAB MCHC 32.9 32.0 - 37.0 g/dL LAB HEMETOLOGY METHOD 10/23/2024 8:08 AM [facility] RDW 17.8(H) 11.0 - 15.0 % LAB HEMETOLOGY METHOD 10/23/2024 8:08 AM [facility] LAB Platelets 270 130 - 400 K/mcL LAB HEMETOLOGY METHOD 10/23/2024 8:08 AM [facility] MPV 9.0 7.0 - 11.0 FL LAB HEMETOLOGY METHOD 10/23/2024 8:08 AM [facility] LAB NRBC 0.0 <1.0 % LAB HEMETOLOGY METHOD 10/23/2024 8:08 AM [facility] NRBC Absolute 0.00 <0.10 K/mcL LAB HEMETOLOGY METHOD 10/23/2024 8:08 AM [facility] Neutrophils Relative 63.6 % LAB HEMETOLOGY METHOD 10/23/2024 8:08 AM [facility] Lymphocytes Relative 17.8 % LAB HEMETOLOGY METHOD 10/23/2024 8:08 AM [facility] Monocytes Relative 14.7 % LAB HEMETOLOGY METHOD 10/23/2024 8:08 AM [facility] Eosinophils Relative 2.8 % LAB HEMETOLOGY METHOD 10/23/2024 8:08 AM [facility] Basophils Relative 0.7 % LAB HEMETOLOGY METHOD 10/23/2024 8:08 AM [facility] Immature Granulocytes Relative 0.4 % LAB HEMETOLOGY METHOD 10/23/2024 8:08 AM [facility] Neutrophils Absolute 5.36 1.50 - 7.00 K/mcL LAB HEMETOLOGY METHOD 10/23/2024 8:08 AM [facility] Lymphocytes Absolute 1.50 1.00 - 5.00 K/mcL LAB HEMETOLOGY METHOD 10/23/2024 8:08 AM EDT [facility] Monocytes Absolute 1.24(H) 0.20 - 1.00 K/[facility] LAB HEMETOLOGY METHOD 10/23/2024 8:08 AM EDT [facility] LAB Eosinophils Absolute 0.24 0.00 - 0.50 K/[facility] LAB HEMETOLOGY METHOD 10/23/2024 8:08 AM EDT [facility] LAB Basophils Absolute 0.06 0.00 - 0.20 K/[facility] LAB HEMETOLOGY METHOD 10/23/2024 8:08 AM EDT [facility] LAB Immature Granulocytes Absolute 0.03 0.00 - 0.03 K/[facility] LAB HEMETOLOGY METHOD 10/23/2024 8:08 AM EDT [facility] LAB Blood Venous blood specimen / Unknown 10/23/2024 7:09 AM EDT 10/23/2024 7:41 AM EDT us Caleb Mckeon MD LAB BLOOD ORDERABLES Final Resul t Performing Organization Address City/[facility]/ZIP Co de Phone Number [facility] LAB [address] [place] [address], [place] [phone] * Thyroid stimulating hormone (10/23/2024 7:09 AM EDT) TSH 1.94 0.40 - 4.00 mcIU/mL LAB CHEMISTRY METHOD 10/23/2024 12:13 PM EDT [facility] LAB Blood Venous blood specimen / Unknown 10/23/2024 7:09 AM EDT 10/23/2024 7:41 AM EDT us Caleb Mckeon MD LAB BLOOD ORDERABLES Final Resul t [facility] [address] [place] [address], [place] [phone] * Hemoglobin A1c (10/23/2024 7:09 AM EDT) Pathologist [facility] Hemoglobin A1C 5.8 <6.5 % LAB CHEMISTRY METHOD 10/23/2024 11:44 AM EDT [facility] Mean Bld Glu Estim. 120 mg/dL LAB CHEMISTRY METHOD 10/23/2024 11:44 AM EDT [facility] Blood Venous blood specimen / Unknown 10/23/2024 7:09 AM EDT 10/23/2024 7:41 AM EDT us Caleb Mckeon MD LAB BLOOD ORDERABLES Final Resul t Performing Organization Address [facility] Co de Phone Number [facility] [address] [place] [address], [place] [phone] * Ammonia (10/23/2024 7:09 AM EDT) [facility] Ammonia 30 11 - 35 mcmol/L LAB CHEMISTRY METHOD 10/23/2024 9:24 AM EDT [facility] Blood Venous blood specimen / Unknown 10/23/2024 7:09 AM EDT 10/23/2024 7:41 AM EDT us Caleb Mckeon MD LAB BLOOD ORDERABLES Final Resul t Performing Organization Address City/[facility]/ZIP Co de Phone Number [facility] [address] [place] [address], [place] [phone] * Comprehensive metabolic panel (10/23/2024 7:09 AM EDT) [facility] Sodium 133 133 - 145 mmol/L LAB CHEMISTRY METHOD 10/23/2024 9:24 AM EDT [facility] Potassium 4.0 3.5 - 5.5 mmol/L LAB CHEMISTRY METHOD 10/23/2024 9:24 AM EDT [facility] Chloride 102 96 - 110 mmol/L LAB CHEMISTRY METHOD 10/23/2024 9:24 AM [facility] CO2 22 21 - 32 mmol/L LAB CHEMISTRY METHOD 10/23/2024 9:24 AM [facility] Anion Gap 9 3 - 11 LAB CHEMISTRY METHOD 10/23/2024 9:24 AM [facility] Glucose 80 70 - 100 mg/dL LAB CHEMISTRY METHOD 10/23/2024 9:24 AM [facility] BUN 8 5 - 25 mg/dL LAB CHEMISTRY METHOD 10/23/2024 9:24 AM [facility] Creatinine 0.83 0.50 - 1.10 mg/dL LAB CHEMISTRY METHOD 10/23/2024 9:24 AM [facility] eGFR 80 >=60 mL/min/1. 73m2 LAB CHEMISTRY METHOD 10/23/2024 9:24 AM [facility] Comment:Calculation based on the Chronic Kidney Disease Epidemiology Collaboration (CKD-EPI) equation refit without adjustment for race. BUN/Creatinine Ratio 9.6 LAB CHEMISTRY METHOD 10/23/2024 9:24 AM [facility] Calcium 9.0 8.5 - 10.5 mg/dL LAB CHEMISTRY METHOD 10/23/2024 9:24 AM [facility] AST (SGOT) 11 10 - 42 unit/L LAB CHEMISTRY METHOD 10/23/2024 9:24 AM [facility] ALT (SGPT) 20 10 - 60 unit/L LAB CHEMISTRY METHOD 10/23/2024 9:24 AM [facility] Alkaline Phosphatase 67 42 - 121 unit/L LAB CHEMISTRY METHOD 10/23/2024 9:24 AM [facility] Total Protein 6.1 6.0 - 8.0 g/dL LAB CHEMISTRY METHOD 10/23/2024 9:24 AM [facility] Albumin 3.4 3.2 - 5.0 g/dL LAB CHEMISTRY METHOD 10/23/2024 9:24 AM EDT [facility] Total Bilirubin 0.3 0.0 - 1.4 mg/dL LAB CHEMISTRY METHOD 10/23/2024 9:24 AM EDT [facility] Blood Venous blood specimen / Unknown 10/23/2024 7:09 AM EDT 10/23/2024 7:41 AM EDT us Caleb Mckeon MD LAB BLOOD ORDERABLES Final Resul t [facility] [address] [place] [address], documented in this encounter Visit Diagnoses Diagnosis Type 2 diabetes mellitus without complications (CMS/HCC V24, CMS/HCC V28) Other specified hypothyroidism Dizziness and giddiness documented in this encounter Care Teams Spring Former Hand Relationship Specialty Start Date End Date Caleb Mckeon MD [address] [place] [address] PCP - General Internal Medicine 05/31/24 documented as of this encounter
--- OUTSIDE RECORDS SUMMARY | 2024-12-17 09:35 | XMS_ITS | Encounter Summary ---
Author Organization [employer] Address [address] [place] [address] Care Team Providers Care Converting Technician Name Role Phone Caleb Mckeon MD Primary Care Provider Encounter Details Date Type Department Care Team (Late st Contact Info) Description 12/10/2024 Lab Requisition [facility] - Main Lab [address] [facility] [place] [address] Caleb Mckeon MD [address] [place] [address] [address] [place], [place] Altered mental status, unspecified Social History Tobacco Use Types Packs/Day [...] Procedure Name Priority Date/Time Associated Diagnosis Comments CULTURE URINE Routine 12/09/2024 9:25 PM EDT Altered mental status, unspecified documented in this encounter Results * (ABNORMAL) Culture urine (12/09/2024 9:25 PM EDT) Culture, Urine <1,000 CFU/mL Streptococcus beta-hemolytic Group B(A) 12/12/2024 8:14 AM EDT [facility] Comment: Susceptibility testing is not routinely performed for Beta Streptococcus isolates since these organisms are predictably sensitive to Penicillin. If the Patient is not responding, is allergic to Penicillin, or further therapeutic information is requir ed, please consult an Infectious Disease Specialist. Urine Urinary bladder structure / Unknown 12/09/2024 9:25 PM EDT 12/10/2024 7:24 AM EDT us Caleb Mckeon MD LAB MICROBIOLOGY - GENERAL ORDER QIAN Final Result [facility] [address] [place] [address], documented in this encounter Visit Diagnoses Diagnosis Altered mental status, unspecified documented in this encounter Care Teams Converting Technician Relationship Specialty Start Date End Date Caleb Mckeon MD [address] [place] [address] PCP - General Internal Medicine 05/31/24 documented as of this encounter
--- OUTSIDE RECORDS SUMMARY | 2024-12-17 09:35 | XMS_ITS | Clinical Summary ---
Author Organization 299 [facility] Address [address] [place] [address] Phone Care Team Providers Care Estimating Engineer Name Role Phone Caleb Mckeon MD Primary Care Provider [phone] Encounters Date Type Department Care Team Description 12/17/2024 Lab Requisition [facility] Lab [address] [place] [phone] Caleb Mckeon MD Other seizures ([facility] V24, [facility] V28); Gastro-esophageal reflux disease without esophagitis 12/10/2024 Lab Requisition [facility] Lab [address] [place] [phone] Caleb Mckeon MD Altered mental status, unspecified 11/13/2024 Lab Requisition [facility] Lab [address] [place] [phone] Caleb Mckeon MD Schizoaffective disorder, bipolar type ([facility] V24, [facility] V28); Abnormal results of thyroid function studies; Encounter for screening for lipoid disorders; Vitamin D deficiency, unspecified 10/23/2024 Lab Requisition [facility] Lab [address] [place] [phone] Caleb Mckeon MD Type 2 diabetes mellitus without complications ([facility] V24, [facility] V28); Other specified hypothyroidism; Dizziness and giddiness 09/26/2024 Lab Requisition [facility] Lab [address] [place] [phone] Caleb Mckeon MD Schizoaffective disorder, bipolar type ([facility] V24, [facility] V28); Type 2 diabetes mellitus without complications ([facility] V24, [facility] V28); Other specified hypothyroidism from Last 3 Months Social History Tobacco Use Types Packs/Day Years Used Date Smoking Tobacco: Never Assessed Comments Unknown Sex and Gender Information Value Date Recorded Sex Assigned at Not on file Legal Sex Female 3:40 PM EDT Gender Identity Not on file Sexual Orientation Not on file Plan of Treatment Health Maintenance Due Date Last Done Comments Breast Cancer Screening 1963 Colorectal Cancer Screening: Colonoscopy 1963 Diabetes: Annual Foot Exam 1973 Diabetes: Annual Retina Eye Exam 1973 DTaP,Tdap,and Td Vaccines (1 - Tdap) 1982 Pneumococcal Vaccine: 50+ Years (1 of 2 - PCV) 1982 Cervical Cancer Screening: Pap Smear 1984 Zoster Vaccines (1 of 2) 2013 HIV Screening 01/07/2024 Hepatitis C Screening 01/07/2024 Medicare Annual Wellness Visit 01/07/2024 Social Influencers of Health Screening 01/07/2024 Depression Screening 03/13/2024 Diabetes: Annual Urine Albumin-Creatinine Ratio (uACR) 09/06/2024 COVID-19 Vaccine ( season) 2024 Influenza Vaccine (#1) 2024 Diabetes: Blood Sugar Control Test (HGBA1C) 04/25/2025 10/23/2024, 09/06/2024, 05/31/2024, Additional history exists Diabetes: Annual GFR (Glomerular Filtration Rate) 12/17/2025 12/17/2024, 11/13/2024, 10/23/2024, Additional history exists Cholesterol Screening (Lipid Panel) 11/13/2029 11/13/2024, 05/31/2024, 03/21/2024 RSV Immunization Adult Patients (1 - 1-dose 75+ series) 2038 HIB Vaccines Aged Out No longer eligi ble based on patient's age to complete this topic HPV Vaccines Aged Out No longer eligi ble based on patient's age to complete this topic Hepatitis A Vaccines Aged Out No long er eligible based on patient's age to complete this topic Hepatitis B Vaccines Aged Out No long er eligible based on patient's age to complete this topic IPV Vaccines Aged Out No longer eligi ble based on patient's age to complete this topic MMR Vaccines Aged Out No longer eligi ble based on patient's age to complete this topic Meningococcal ACWY Vaccine Aged Out N o longer eligible based on patient's age to complete this topic Meningococcal B Vaccine Aged Out No l onger eligible based on patient's age to complete this topic RSV Immunization Patients Under 20 months Aged Out No longer eligible based on patient's age to complete this topic Varicella Vaccines Aged Out No longer eligible based on patient's age to complete this topic Procedures Procedure Name Priority Date/Time Associated Diagnosis [...] CMS/HCC V28) Gastro-esophageal reflux disease without esophagitis CULTURE URINE Routine 12/09/2024 9:25 PM EDT Altered mental status, unspecified CBC WITH AUTO DIFFERENTIAL Routine 11/13/2024 6:44 AM EDT Schizoaffective disorder, bipolar type (CMS/HCC V24, CMS/HCC V28) Abnormal results of thyroid function studies Encounter for screening for lipoid disorders Vitamin D deficiency, unspecified VITAMIN D 25 HYDROXY Routine 11/13/2024 6:44 AM EDT Schizoaffective disorder, bipolar type (CMS/HCC V24, CMS/HCC V28) Abnormal results of thyroid function studies Encounter for screening for lipoid disorders Vitamin D deficiency, unspecified THYROID STIMULATING HORMONE Routine 11/13/2024 6:44 AM EDT Schizoaffective disorder, bipolar type (CMS/HCC V24, CMS/HCC V28) Abnormal results of thyroid function studies Encounter for screening for lipoid disorders Vitamin D deficiency, unspecified CBC AND DIFFERENTIAL Routine 11/13/2024 6:44 AM EDT Schizoaffective disorder, bipolar type (CMS/HCC V24, CMS/HCC V28) Abnormal results of thyroid function studies Encounter for screening for lipoid disorders Vitamin D deficiency, unspecified LIPID PANEL WITH REFLEX TO DIRECT LDL Routine 11/13/2024 6:44 AM EDT Schizoaffective disorder, bipolar type (CMS/HCC V24, CMS/HCC V28) Abnormal results of thyroid function studies Encounter for screening for lipoid disorders Vitamin D deficiency, unspecified COMPREHENSIVE METABOLIC PANEL Routine 11/13/2024 6:44 AM EDT Schizoaffective disorder, bipolar type (CMS/HCC V24, CMS/HCC V28) Abnormal results of thyroid function studies Encounter for screening for lipoid disorders Vitamin D deficiency, unspecified CBC WITH AUTO DIFFERENTIAL Routine 10/23/2024 7:09 [...] Other specified hypothyroidism Dizziness and giddiness CBC WITH AUTO DIFFERENTIAL Routine 09/26/2024 7:04 AM EDT Schizoaffective disorder, bipolar type (CMS/HCC V24, CMS/HCC V28) Type 2 diabetes mellitus without complications (CMS/HCC V24, CMS/HCC V28) Other specified hypothyroidism THYROID STIMULATING HORMONE Routine 09/26/2024 7:04 AM EDT Schizoaffective disorder, bipolar type (CMS/HCC V24, CMS/HCC V28) Type 2 diabetes mellitus without complications (CMS/HCC V24, CMS/HCC V28) Other specified hypothyroidism CBC AND DIFFERENTIAL Routine 09/26/2024 7:04 AM EDT Schizoaffective disorder, bipolar type (CMS/HCC V24, CMS/HCC V28) Type 2 diabetes mellitus without complications (CMS/HCC V24, CMS/HCC V28) Other specified hypothyroidism BASIC METABOLIC PANEL Routine 09/26/2024 7:04 AM EDT Schizoaffective disorder, bipolar type (CMS/HCC V24, CMS/HCC V28) Type 2 diabetes mellitus without complications (CMS/HCC V24, CMS/HCC V28) Other specified hypothyroidism from Last 3 Months Results * (ABNORMAL) CBC auto differential (12/17/2024 6:39 AM EDT) Only the most recent of4 resultswithin the time period is included. WBC 9.0 4.8 - 10.8 K/mcL LAB HEMETOLOGY METHOD 12/17/2024 8:18 AM EDT [facility] RBC 4.50 3.80 - 4.80 M/mcL LAB HEMETOLOGY METHOD 12/17/2024 8:18 AM [facility] Hemoglobin 10.2(L) 11.5 - 16.0 g/dL LAB HEMETOLOGY METHOD 12/17/2024 8:18 AM T [facility] Hematocrit 31.5(L) 35.0 - 47.0 % LAB HEMETOLOGY METHOD 12/17/2024 8:18 AM T [facility] MCV 70.3(L) 79.0 - 98.0 FL LAB HEMETOLOGY METHOD 12/17/2024 8:18 AM [facility] MCH 22.8(L) 27.0 - 32.0 pcg LAB HEMETOLOGY METHOD 12/17/2024 8:18 AM [facility] MCHC 32.4 32.0 - 37.0 g/dL LAB HEMETOLOGY METHOD 12/17/2024 8:18 AM [facility] RDW 15.7(H) 11.0 - 15.0 % LAB HEMETOLOGY METHOD 12/17/2024 8:18 AM [facility] Platelets 228 130 - 400 K/mcL LAB HEMETOLOGY METHOD 12/17/2024 8:18 AM [facility] MPV 11.3(H) 7.0 - 11.0 FL LAB HEMETOLOGY METHOD 12/17/2024 8:18 AM [facility] NRBC 0.0 <1.0 % LAB HEMETOLOGY METHOD 12/17/2024 8:18 AM [facility] NRBC Absolute 0.00 <0.10 K/mcL LAB HEMETOLOGY METHOD 12/17/2024 8:18 AM [facility] Neutrophils Relative 70.0 % LAB HEMETOLOGY METHOD 12/17/2024 8:18 AM [facility] Lymphocytes Relative 14.8 % LAB HEMETOLOGY METHOD 12/17/2024 8:18 AM [facility] Monocytes Relative 11.7 % LAB HEMETOLOGY METHOD 12/17/2024 8:18 AM [facility] Eosinophils Relative 2.5 % LAB HEMETOLOGY METHOD 12/17/2024 8:18 AM EDT [facility] Basophils Relative 0.6 % LAB HEMETOLOGY METHOD 12/17/2024 8:18 AM EDT [facility] Immature Granulocytes Relative 0.4 % LAB HEMETOLOGY METHOD 12/17/2024 8:18 AM EDT [facility] Neutrophils Absolute 6.31 1.50 - 7.00 K/mcL LAB HEMETOLOGY METHOD 12/17/2024 8:18 AM EDT [facility] Lymphocytes Absolute 1.34 1.00 - 5.00 K/mcL LAB HEMETOLOGY METHOD 12/17/2024 8:18 AM EDT [facility] Monocytes Absolute 1.06(H) 0.20 - 1.00 K/mcL LAB HEMETOLOGY METHOD 12/17/2024 8:18 AM EDT [facility] Eosinophils Absolute 0.23 0.00 - 0.50 K/mcL LAB HEMETOLOGY METHOD 12/17/2024 8:18 AM EDT [facility] Basophils Absolute 0.05 0.00 - 0.20 K/mcL LAB HEMETOLOGY METHOD 12/17/2024 8:18 AM EDT [facility] Immature Granulocytes Absolute 0.04(H) 0.00 - 0.03 K/mcL LAB HEMETOLOGY METHOD 12/17/2024 8:18 AM EDT [facility] Blood Venous blood specimen / Unknown 12/17/2024 6:39 AM EDT 12/17/2024 7:48 AM EDT us Caleb Mckeon MD LAB BLOOD ORDERABLES Final Resul t [facility] [address] [place] [address], * (ABNORMAL) Basic metabolic panel (12/17/2024 6:39 AM EDT) Only the most recent of2 resultswithin the time period is included. Sodium 137 133 - 145 mmol/L LAB CHEMISTRY METHOD 12/17/2024 8:22 AM [facility] Potassium 4.8 3.5 - 5.5 mmol/L LAB CHEMISTRY METHOD 12/17/2024 8:22 AM [facility] Comment:Hemolysis present Chloride 112(H) 96 - 110 mmol/L LAB CHEMISTRY METHOD 12/17/2024 8:22 AM [facility] CO2 17(L) 21 - 32 mmol/L LAB CHEMISTRY METHOD 12/17/2024 8:22 AM [facility] Anion Gap 8 3 - 11 LAB CHEMISTRY METHOD 12/17/2024 8:22 AM [facility] Glucose 111(H) 70 - 100 mg/dL LAB CHEMISTRY METHOD 12/17/2024 8:22 AM [facility] BUN 19 5 - 25 mg/dL LAB CHEMISTRY METHOD 12/17/2024 8:22 AM [facility] Creatinine 0.97 0.50 - 1.10 mg/dL LAB CHEMISTRY METHOD 12/17/2024 8:22 AM [facility] eGFR 67 >=60 mL/min/1. 73m2 LAB CHEMISTRY METHOD 12/17/2024 8:22 AM [facility] Comment:Calculation based on the Chronic Kidney Disease Epidemiology Collaboration (CKD-EPI) equation refit without adjustment for race. BUN/Creatinine Ratio 19.6 LAB CHEMISTRY METHOD 12/17/2024 8:22 AM [facility] Calcium 9.2 8.5 - 10.5 mg/dL LAB CHEMISTRY METHOD 12/17/2024 8:22 AM [facility] Blood Venous blood specimen / Unknown 12/17/2024 6:39 AM EDT 12/17/2024 7:48 AM EDT us Caleb Mckeon MD LAB BLOOD ORDERABLES Final Resul t Performing Organization Address City/[facility]/ZIP Co de Phone Number [facility] [address] [place] [address], [place] [phone] * (ABNORMAL) Culture urine (12/09/2024 9:25 PM EDT) Culture, Urine <1,000 CFU/mL Streptococcus beta-hemolytic Group B(A) 12/12/2024 8:14 AM EDT [facility] Comment: Susceptibility testing is [...] MICROBIOLOGY - GENERAL ORDER QIAN Final Result Performing Organization Address City/[facility]/ZIP Co de Phone Number [facility] [address] [place] [address], [place] [phone] * Lipid panel with reflex to direct LDL (11/13/2024 6:44 AM EDT) Cholesterol 93 0 - 200 mg/dL LAB CHEMISTRY METHOD 11/13/2024 9:09 AM EDT [facility] Triglycerides 93 0 - 150 mg/dL LAB CHEMISTRY METHOD 11/13/2024 9:09 AM EDT [facility] HDL 65 >=40 mg/dL LAB CHEMISTRY METHOD 11/13/2024 9:09 AM EDT [facility] LDL Calculated 9 0 - 100 mg/dL LAB CHEMISTRY METHOD 11/13/2024 9:09 AM EDT [facility] Comment:Estimated LDL Calcul ated using equation: Total cholesterol - HDL cholesterol - (Triglycerides/5) VLDL Cholesterol Kevyn 18.6 mg/dL LAB CHEMISTRY METHOD 11/13/2024 9:09 AM EDT [facility] Non HDL Chol. (LDL+VLDL) 28 <145 mg/dL LAB CHEMISTRY METHOD 11/13/2024 9:09 AM EDT [facility] Chol/HDL Ratio 1.4 0.0 - 4.4 LAB CHEMISTRY METHOD 11/13/2024 9:09 AM EDT [facility] Blood Venous blood specimen / Unknown 11/13/2024 6:44 AM EDT 11/13/2024 7:48 AM EDT us Caleb Mckeon MD LAB BLOOD ORDERABLES Final Resul t Performing Organization Address [facility]/ZIP Co de Phone Number [facility] [address] [place] [address], [place] [phone] * Vitamin D 25 hydroxy (11/13/2024 6:44 AM EDT) Vit D, 25-Hydroxy 53.8 30.0 - 80.0 ng/mL LAB CHEMISTRY METHOD 11/13/2024 9:58 AM EDT [facility] Blood Venous blood specimen / Unknown 11/13/2024 6:44 AM EDT 11/13/2024 7:48 AM EDT us Caleb Mckeon MD LAB BLOOD ORDERABLES Final Resul t Performing Organization Address City/[facility]/ZIP Co de Phone Number [facility] [address] [place] [address], [place] [phone] * Thyroid stimulating hormone (11/13/2024 6:44 AM EDT) Only the most recent of3 resultswithin the time period is included. TSH 1.35 0.40 - 4.00 mcIU/mL LAB CHEMISTRY METHOD 11/13/2024 9:58 AM EDT [facility] Blood Venous blood specimen / Unknown 11/13/2024 6:44 AM EDT 11/13/2024 7:48 AM EDT us Caleb Mckeon MD LAB BLOOD ORDERABLES Final Resul t [facility] [address] [place] [address], [place] [phone] * Comprehensive metabolic panel (11/13/2024 6:44 AM EDT) Only the most recent of2 resultswithin the time period is included. Sodium 133 133 - 145 mmol/L LAB CHEMISTRY METHOD 11/13/2024 9:08 AM [facility] Potassium 4.3 3.5 - 5.5 mmol/L LAB CHEMISTRY METHOD 11/13/2024 9:08 AM [facility] Chloride 101 96 - 110 mmol/L LAB CHEMISTRY METHOD 11/13/2024 9:08 AM [facility] CO2 24 21 - 32 mmol/L LAB CHEMISTRY METHOD 11/13/2024 9:08 AM [facility] Anion Gap 8 3 - 11 LAB CHEMISTRY METHOD 11/13/2024 9:08 AM [facility] Glucose 93 70 - 100 mg/dL LAB CHEMISTRY METHOD 11/13/2024 9:08 AM [facility] BUN 10 5 - 25 mg/dL LAB CHEMISTRY METHOD 11/13/2024 9:08 AM [facility] Creatinine 0.86 0.50 - 1.10 mg/dL LAB CHEMISTRY METHOD 11/13/2024 9:08 AM [facility] eGFR 77 >=60 mL/min/1. 73m2 LAB CHEMISTRY METHOD 11/13/2024 9:08 AM [facility] Comment:Calculation based on the Chronic Kidney Disease Epidemiology Collaboration (CKD-EPI) equation refit without adjustment for race. BUN/Creatinine Ratio 11.6 LAB CHEMISTRY METHOD 11/13/2024 9:08 AM [facility] Calcium 9.1 8.5 - 10.5 mg/dL LAB CHEMISTRY METHOD 11/13/2024 9:08 AM [facility] AST (SGOT) 10 10 - 42 unit/L LAB CHEMISTRY METHOD 11/13/2024 9:08 AM [facility] ALT (SGPT) 20 10 - 60 unit/L LAB CHEMISTRY METHOD 11/13/2024 9:08 AM [facility] Alkaline Phosphatase 71 42 - 121 unit/L LAB CHEMISTRY METHOD 11/13/2024 9:08 AM [facility] Total Protein 6.1 6.0 - 8.0 g/dL LAB CHEMISTRY METHOD 11/13/2024 9:08 AM [facility] Albumin 3.5 3.2 - 5.0 g/dL LAB CHEMISTRY METHOD 11/13/2024 9:08 AM [facility] Total Bilirubin 0.3 0.0 - 1.4 mg/dL LAB CHEMISTRY METHOD 11/13/2024 9:08 AM [facility] Blood Venous blood specimen / Unknown 11/13/2024 6:44 AM EDT 11/13/2024 7:48 AM EDT us Caleb Mckeon MD LAB BLOOD ORDERABLES Final Resul t [facility] [address] [place] [address], * Hemoglobin A1c (10/23/2024 7:09 AM EDT) Hemoglobin A1C 5.8 <6.5 % LAB CHEMISTRY METHOD 10/23/2024 11:44 AM T [facility] Mean Bld Glu Estim. 120 mg/dL LAB CHEMISTRY METHOD 10/23/2024 11:44 AM EDT [facility] Blood Venous blood specimen / Unknown 10/23/2024 7:09 AM EDT 10/23/2024 7:41 AM EDT us Caleb Mckeon MD LAB BLOOD ORDERABLES Final Resul t Performing Organization Address [facility] Co de Phone Number [facility] [address] [place] [address], [place] [phone] * Ammonia (10/23/2024 7:09 AM EDT) Ammonia 30 11 - 35 mcmol/L LAB CHEMISTRY METHOD 10/23/2024 9:24 AM EDT [facility] Blood Venous blood specimen / Unknown 10/23/2024 7:09 AM EDT 10/23/2024 7:41 AM EDT us Caleb Mckeon MD LAB BLOOD ORDERABLES Final Resul t Performing Organization Address [facility] Co de Phone Number [facility] [address] [place] [address], [place] [phone] from Last 3 Months Insurance [facility] [address] [address] MEDICARE [place]ID [place] [id number] Care Teams Estimating Engineer Relationship Specialty Start Date End Date Caleb Mckeon MD [address] [place] [address] PCP - General Internal Medicine 05/31/24
--- OUTSIDE RECORDS SUMMARY | 2024-12-17 09:35 | XMS_ITS | Encounter Summary ---
Author Organization [employer] Address [address] [place] [address] Care Team Providers Care Reading Coach Name Role Phone Caleb Mckeon MD Primary Care Provider [phone] Encounter Details Date Type Department Care Team (Latest Contact Info) Description 09/26/2024 Lab Requisition [facility] - Main Lab [address] [facility] [employer] [place] [address] Caleb Mckeon MD [address] [place] [address] [address] [place] Schizoaffective disorder, bipolar type (CMS/HCC V24, CMS/HCC V28); Type 2 diabetes mellitus without complications (CMS/HCC V24, CMS/HCC V28); Other specified hypothyroidism Social History Tobacco Use Types Packs/Day Years [...] Diagnosis Comments CBC WITH AUTO DIFFERENTIAL Routine 09/26/2024 7:04 [...] V28) Type 2 diabetes mellitus without complications ([facility] V24, [facility] V28) Other specified hypothyroidism BASIC METABOLIC PANEL Routine 09/26/2024 7:04 AM EDT Schizoaffective disorder, bipolar type ([facility] V24, [facility] V28) Type 2 diabetes mellitus without complications ([facility] V24, [facility] V28) Other specified hypothyroidism documented in this encounter Results * (ABNORMAL) CBC auto differential (09/26/2024 7:04 AM EDT) [facility] WBC 5.8 4.8 - 10.8 K/mcL LAB HEMETOLOGY METHOD 09/26/2024 7:37 AM [facility] RBC 4.30 3.80 - 4.80 M/mcL LAB HEMETOLOGY METHOD 09/26/2024 7:37 AM [facility] Hemoglobin 10.3(L) 11.5 - 16.0 g/dL LAB HEMETOLOGY METHOD 09/26/2024 7:37 AM [facility] Hematocrit 32.4(L) 35.0 - 47.0 % LAB HEMETOLOGY METHOD 09/26/2024 7:37 AM [facility] MCV 75.5(L) 79.0 - 98.0 FL LAB HEMETOLOGY METHOD 09/26/2024 7:37 AM [facility] MCH 24.0(L) 27.0 - 32.0 pcg LAB HEMETOLOGY METHOD 09/26/2024 7:37 AM [facility] MCHC 31.8(L) 32.0 - 37.0 g/dL LAB HEMETOLOGY METHOD 09/26/2024 7:37 AM [facility] RDW 22.4(H) 11.0 - 15.0 % LAB HEMETOLOGY METHOD 09/26/2024 7:37 AM [facility] Platelets 297 130 - 400 K/mcL LAB HEMETOLOGY METHOD 09/26/2024 7:37 AM [facility] MPV 9.0 7.0 - 11.0 FL LAB HEMETOLOGY METHOD 09/26/2024 7:37 AM [facility] NRBC 0.0 <1.0 % LAB HEMETOLOGY METHOD 09/26/2024 7:37 AM [facility] NRBC Absolute 0.00 <0.10 K/mcL LAB HEMETOLOGY METHOD 09/26/2024 7:37 AM [facility] Neutrophils Relative 43.5 % LAB HEMETOLOGY METHOD 09/26/2024 7:37 AM [facility] Lymphocytes Relative 37.7 % LAB HEMETOLOGY METHOD 09/26/2024 7:37 AM [facility] Monocytes Relative 15.0 % LAB HEMETOLOGY METHOD 09/26/2024 7:37 AM [facility] Eosinophils Relative 2.3 % LAB HEMETOLOGY METHOD 09/26/2024 7:37 AM [facility] Basophils Relative 1.2 % LAB HEMETOLOGY METHOD 09/26/2024 7:37 AM [facility] Immature Granulocytes Relative 0.3 % LAB HEMETOLOGY METHOD 09/26/2024 7:37 AM [facility] Neutrophils Absolute 2.50 1.50 - 7.00 K/mcL LAB HEMETOLOGY METHOD 09/26/2024 7:37 AM [facility] Lymphocytes Absolute 2.17 1.00 - 5.00 K/mcL LAB HEMETOLOGY METHOD 09/26/2024 7:37 AM [facility] Monocytes Absolute 0.86 0.20 - 1.00 K/mcL LAB HEMETOLOGY METHOD 09/26/2024 7:37 AM [facility] Eosinophils Absolute 0.13 0.00 - 0.50 K/mcL LAB HEMETOLOGY METHOD 09/26/2024 7:37 AM EDT [facility] Basophils Absolute 0.07 0.00 - 0.20 K/[facility] LAB HEMETOLOGY METHOD 09/26/2024 7:37 AM EDT [facility] Immature Granulocytes Absolute 0.02 0.00 - 0.03 K/[facility] LAB HEMETOLOGY METHOD 09/26/2024 7:37 AM EDT [facility] Blood Venous blood specimen / Unknown 09/26/2024 7:04 AM EDT 09/26/2024 7:28 AM EDT us Caleb Mckeon MD LAB BLOOD ORDERABLES Final Resul t Performing Organization Address [facility]/ZIP Co de Phone Number [facility] [address] [place] [address], [place] [phone] * Thyroid stimulating hormone (09/26/2024 7:04 AM EDT) TSH 2.32 0.40 - 4.00 mcIU/mL LAB CHEMISTRY METHOD 09/26/2024 10:12 AM EDT [facility] Blood Venous blood specimen / Unknown 09/26/2024 7:04 AM EDT 09/26/2024 7:28 AM EDT us Caleb Mckeon MD LAB BLOOD ORDERABLES Final Resul t Performing Organization Address City/[facility]/ZIP Co de Phone Number [facility] [address] [place] [address], [place] [phone] * (ABNORMAL) Basic metabolic panel (09/26/2024 7:04 AM EDT) Sodium 132(L) 133 - 145 mmol/L LAB CHEMISTRY METHOD 09/26/2024 8:07 AM EDT [facility] Potassium 4.7 3.5 - 5.5 mmol/L LAB CHEMISTRY METHOD 09/26/2024 8:07 AM [facility] Chloride 101 96 - 110 mmol/L LAB CHEMISTRY METHOD 09/26/2024 8:07 AM [facility] CO2 25 21 - 32 mmol/L LAB CHEMISTRY METHOD 09/26/2024 8:07 AM [facility] Anion Gap 6 3 - 11 LAB CHEMISTRY METHOD 09/26/2024 8:07 AM [facility] Glucose 84 70 - 100 mg/dL LAB CHEMISTRY METHOD 09/26/2024 8:07 AM [facility] BUN 8 5 - 25 mg/dL LAB CHEMISTRY METHOD 09/26/2024 8:07 AM [facility] Creatinine 0.84 0.50 - 1.10 mg/dL LAB CHEMISTRY METHOD 09/26/2024 8:07 AM [facility] eGFR 79 >=60 mL/min/1. 73m2 LAB CHEMISTRY METHOD 09/26/2024 8:07 AM [facility] Comment:Calculation based on the Chronic Kidney Disease Epidemiology Collaboration (CKD-EPI) equation refit without adjustment for race. BUN/Creatinine Ratio 9.5 LAB CHEMISTRY METHOD 09/26/2024 8:07 AM [facility] Calcium 9.1 8.5 - 10.5 mg/dL LAB CHEMISTRY METHOD 09/26/2024 8:07 AM [facility] Blood Venous blood specimen / Unknown 09/26/2024 7:04 AM EDT 09/26/2024 7:28 AM EDT us Caleb Mckeon MD LAB BLOOD ORDERABLES Final Resul t [facility] [address] [place] [address], documented in this encounter Visit Diagnoses Diagnosis Schizoaffective disorder, bipolar type ([facility] V24, [facility] V28) Schizoaffective disorder, unspecified condition Type 2 diabetes mellitus without complications ([facility] V24, [facility] V28) Other specified hypothyroidism documented in this encounter Care Teams Reading Coach Relationship Specialty Start Date End Date Caleb Mckeon MD [address] [place] [address] PCP - General Internal Medicine 05/31/24 documented as of this encounter
--- OUTSIDE RECORDS SUMMARY | 2024-12-17 09:35 | XMS_ITS | Encounter Summary ---
Author Organization [employer] Address [address] [place] [address] Care Team Providers Care Head Stock Operator Name Role Phone Caleb Mckeon MD Primary Care Provider [phone] Encounter Details Date Type Department Care Team (Latest Contact Info) Description 03/21/2024 Lab Requisition [facility] - Main Lab [address] [facility] [employer] [place] [address] Caleb Mckeon MD [address] [place] [address] [address] [place] Schizoaffective disorder, bipolar type (CMS/HCC V24, CMS/HCC V28) Social History Tobacco [...] Procedure Name Priority Date/Time Associated Diagnosis Comments LIPID PANEL WITH REFLEX TO DIRECT LDL Routine 03/21/2024 7:30 AM EST Schizoaffective disorder, bipolar type (CMS/HCC) CBC WITH AUTO DIFFERENTIAL Routine 03/21/2024 7:30 AM EST Schizoaffective disorder, bipolar type (CMS/HCC) VITAMIN D 25 HYDROXY Routine 03/21/2024 7:30 AM EST Schizoaffective disorder, bipolar type (CMS/HCC) CBC AND DIFFERENTIAL Routine 03/21/2024 7:30 AM EST Schizoaffective disorder, bipolar type (CMS/HCC) HEMOGLOBIN Routine 03/21/2024 7:30 AM EST Schizoaffective disorder, bipolar type (CMS/HCC) HEMOGLOBIN A1C Routine 03/21/2024 7:30 AM EST Schizoaffective disorder, bipolar type (CMS/HCC) documented in this encounter Results * (ABNORMAL) Hemoglobin (03/21/2024 7:30 AM EST) Hemoglobin 8.4(L) 11.5 - 16.0 g/dL LAB HEMETOLOGY METHOD 03/21/2024 9:46 AM EST [facility] Blood Venous blood specimen / Unknown 03/21/2024 7:30 AM EST 03/21/2024 9:20 AM EST us Caleb Mckeon MD LAB BLOOD ORDERABLES Final Resul t [facility] [address] [place] [address], * (ABNORMAL) CBC auto differential (03/21/2024 7:30 AM EST) WBC 7.0 4.8 - 10.8 K/mcL LAB HEMETOLOGY METHOD 03/21/2024 9:46 AM [facility] RBC 3.70(L) 3.80 - 4.80 M/mcL LAB HEMETOLOGY METHOD 03/21/2024 9:46 AM [facility] Hemoglobin 8.4(L) 11.5 - 16.0 g/dL LAB HEMETOLOGY METHOD 03/21/2024 9:46 AM [facility] Hematocrit 27.1(L) 35.0 - 47.0 % LAB HEMETOLOGY METHOD 03/21/2024 9:46 AM [facility] MCV 74.0(L) 79.0 - 98.0 FL LAB HEMETOLOGY METHOD 03/21/2024 9:46 AM [facility] MCH 23.0(L) 27.0 - 32.0 pcg LAB HEMETOLOGY METHOD 03/21/2024 9:46 AM [facility] MCHC 31.0(L) 32.0 - 37.0 g/dL LAB HEMETOLOGY METHOD 03/21/2024 9:46 AM [facility] RDW 18.6(H) 11.0 - 15.0 % LAB HEMETOLOGY METHOD 03/21/2024 9:46 AM [facility] Platelets 269 130 - 400 K/mcL LAB HEMETOLOGY METHOD 03/21/2024 9:46 AM [facility] MPV 9.5 7.0 - 11.0 FL LAB HEMETOLOGY METHOD 03/21/2024 9:46 AM [facility] NRBC 0.0 <1.0 % LAB HEMETOLOGY METHOD 03/21/2024 9:46 AM [facility] NRBC Absolute 0.00 <0.10 K/mcL LAB HEMETOLOGY METHOD 03/21/2024 9:46 AM [facility] Neutrophils Relative 48.2 % LAB HEMETOLOGY METHOD 03/21/2024 9:46 AM [facility] Lymphocytes Relative 28.9 % LAB HEMETOLOGY METHOD 03/21/2024 9:46 AM [facility] Monocytes Relative 16.3 % LAB HEMETOLOGY METHOD 03/21/2024 9:46 AM [facility] Eosinophils Relative 5.3 % LAB HEMETOLOGY METHOD 03/21/2024 9:46 AM [facility] Basophils Relative 1.0 % LAB HEMETOLOGY METHOD 03/21/2024 9:46 AM [facility] Immature Granulocytes Relative 0.3 % LAB HEMETOLOGY METHOD 03/21/2024 9:46 AM [facility] Neutrophils Absolute 3.36 1.50 - 7.00 K/mcL LAB HEMETOLOGY METHOD 03/21/2024 9:46 AM EST [facility] Lymphocytes Absolute 2.02 1.00 - 5.00 K/[facility] LAB HEMETOLOGY METHOD 03/21/2024 9:46 AM EST [facility] Monocytes Absolute 1.14(H) 0.20 - 1.00 K/[facility] LAB HEMETOLOGY METHOD 03/21/2024 9:46 AM EST [facility] Eosinophils Absolute 0.37 0.00 - 0.50 K/[facility] LAB HEMETOLOGY METHOD 03/21/2024 9:46 AM EST [facility] Basophils Absolute 0.07 0.00 - 0.20 K/[facility] LAB HEMETOLOGY METHOD 03/21/2024 9:46 AM [facility] Immature Granulocytes Absolute 0.02 0.00 - 0.03 K/[facility] LAB HEMETOLOGY METHOD 03/21/2024 9:46 AM EST [facility] Blood Venous blood specimen / Unknown 03/21/2024 7:30 AM EST 03/21/2024 9:20 AM EST us Caleb Mckeon MD LAB BLOOD ORDERABLES Final Resul t [facility] [address] [place] [address], * (ABNORMAL) Hemoglobin A1c (03/21/2024 7:30 AM EST) Hemoglobin A1C 7.2(H) <6.5 % LAB CHEMISTRY METHOD 03/21/2024 11:12 AM EST [facility] Mean Bld Glu Estim. 160 mg/dL LAB CHEMISTRY METHOD 03/21/2024 11:12 AM EST [facility] Blood Venous blood specimen / Unknown 03/21/2024 7:30 AM EST 03/21/2024 9:20 AM EST us Caleb Mckeon MD LAB BLOOD ORDERABLES Final Resul t Performing Organization Address [facility]/ZIP Co de Phone Number [facility] [address] [place] [address], [place] [phone] * Vitamin D 25 hydroxy (03/21/2024 7:30 AM EST) Vit D, 25-Hydroxy 41.2 30.0 - 80.0 ng/mL LAB CHEMISTRY METHOD 03/21/2024 11:24 AM [facility] Blood Venous blood specimen / Unknown 03/21/2024 7:30 AM EST 03/21/2024 9:20 AM EST us Caleb Mckeon MD LAB BLOOD ORDERABLES Final Resul t Performing Organization Address [facility] Co de Phone Number [facility] [address] [place] [address], [place] [phone] * Lipid panel with reflex to direct LDL (03/21/2024 7:30 AM EST) [facility] Cholesterol 80 0 - 200 mg/dL LAB CHEMISTRY METHOD 03/21/2024 9:59 AM [facility] Triglycerides 70 0 - 150 mg/dL LAB CHEMISTRY METHOD 03/21/2024 9:59 AM [facility] HDL 47 >=40 mg/dL LAB CHEMISTRY METHOD 03/21/2024 9:59 AM [facility] LDL Calculated 19 0 - 100 mg/dL LAB CHEMISTRY METHOD 03/21/2024 9:59 AM [facility] VLDL Cholesterol Kevyn 14 mg/dL LAB CHEMISTRY METHOD 03/21/2024 9:59 AM [facility] Non HDL Chol. (LDL+VLDL) 33 <145 mg/dL LAB CHEMISTRY METHOD 03/21/2024 9:59 AM [facility] Chol/HDL Ratio 1.7 0.0 - 4.4 LAB CHEMISTRY METHOD 03/21/2024 9:59 AM EST [facility] Blood Venous blood specimen / Unknown 03/21/2024 7:30 AM EST 03/21/2024 9:20 AM EST Caleb Mckeon MD LAB BLOOD ORDERABLES Final Resul t [facility] [address] [place] [address], documented in this encounter Visit Diagnoses Diagnosis Schizoaffective disorder, bipolar type (CMS/HCC V24, CMS/HCC V28) Schizoaffective disorder, unspecified condition documented in this encounter Care Teams Head Stock Operator Relationship Specialty Start Date End Date Caleb Mckeon MD [address] [place] [address] PCP - General Internal Medicine 05/31/24 documented as of this encounter
--- OUTSIDE RECORDS SUMMARY | 2024-12-17 09:35 | XMS_ITS | Encounter Summary ---
Author Organization [employer] Address [address] [place] [address] Care Team Providers Care Retail Director Name Role Phone Caleb Mckeon MD Primary Care Provider [phone] Encounter Details Date Type Department Care Team (Latest Contact Info) Description 05/31/2024 Lab Requisition [facility] - Main Lab [address] [facility] [employer] [place] [address] Caleb Mckeon MD [address] [place] [address] [address] [place] Schizoaffective disorder, bipolar type (CMS/HCC V24, CMS/HCC V28); Type 2 diabetes mellitus without complications (CMS/HCC V24, CMS/HCC V28); Other ad terminal makeup operator (current) drug therapy; Hypothyroidism, unspecified; Hyperlipidemia, unspecified Social History Tobacco Use Types Packs/Day [...] PANEL WITH REFLEX TO DIRECT LDL Routine 05/31/2024 7:14 AM EDT Schizoaffective disorder, bipolar type (CMS/HCC) Type 2 diabetes mellitus without complications Other ad terminal makeup operator (current) drug therapy Hypothyroidism, unspecified Hyperlipidemia, unspecified CBC WITH AUTO DIFFERENTIAL Routine 05/31/2024 7:14 AM EDT Schizoaffective disorder, bipolar type (CMS/HCC) Type 2 diabetes mellitus without complications Other longterm (current) drug therapy Hypothyroidism, unspecified Hyperlipidemia, unspecified VITAMIN D 25 HYDROXY Routine 05/31/2024 7:14 AM EDT Schizoaffective disorder, bipolar type (CMS/HCC) Type 2 diabetes mellitus without complications Other ad terminal makeup operator (current) drug therapy Hypothyroidism, unspecified Hyperlipidemia, unspecified CBC AND DIFFERENTIAL Routine 05/31/2024 7:14 AM EDT Schizoaffective disorder, bipolar type (CMS/HCC) Type 2 diabetes mellitus without complications Other longterm (current) drug therapy Hypothyroidism, unspecified Hyperlipidemia, unspecified THYROID STIMULATING HORMONE Routine 05/31/2024 7:14 AM EDT Schizoaffective disorder, bipolar type (CMS/HCC) Type 2 diabetes mellitus without complications Other longterm (current) drug therapy Hypothyroidism, unspecified Hyperlipidemia, unspecified HEMOGLOBIN A1C Routine 05/31/2024 7:14 AM EDT Schizoaffective disorder, bipolar type (CMS/HCC) Type 2 diabetes mellitus without complications Other ad terminal makeup operator (current) drug therapy Hypothyroidism, unspecified Hyperlipidemia, unspecified COMPREHENSIVE METABOLIC PANEL Routine 05/31/2024 7:14 AM EDT Schizoaffective disorder, bipolar type (CMS/HCC) Type 2 diabetes mellitus without complications Other ad terminal makeup operator (current) drug therapy Hypothyroidism, unspecified Hyperlipidemia, unspecified documented in this encounter Results * (ABNORMAL) CBC auto differential (05/31/2024 7:14 AM EDT) [facility] WBC 8.5 4.8 - 10.8 K/mcL LAB HEMETOLOGY METHOD 05/31/2024 8:01 AM [facility] RBC 4.10 3.80 - 4.80 M/mcL LAB HEMETOLOGY METHOD 05/31/2024 8:01 AM [facility] Hemoglobin 9.1(L) 11.5 - 16.0 g/dL LAB HEMETOLOGY METHOD 05/31/2024 8:01 AM [facility] Hematocrit 29.5(L) 35.0 - 47.0 % LAB HEMETOLOGY METHOD 05/31/2024 8:01 AM [facility] MCV 71.8(L) 79.0 - 98.0 FL LAB HEMETOLOGY METHOD 05/31/2024 8:01 AM [facility] MCH 22.1(L) 27.0 - 32.0 pcg LAB HEMETOLOGY METHOD 05/31/2024 8:01 AM [facility] MCHC 30.8(L) 32.0 - 37.0 g/dL LAB HEMETOLOGY METHOD 05/31/2024 8:01 AM [facility] RDW 19.9(H) 11.0 - 15.0 % LAB HEMETOLOGY METHOD 05/31/2024 8:01 AM [facility] Platelets 302 130 - 400 K/mcL LAB HEMETOLOGY METHOD 05/31/2024 8:01 AM [facility] MPV 9.3 7.0 - 11.0 FL LAB HEMETOLOGY METHOD 05/31/2024 8:01 AM [facility] NRBC 0.0 <1.0 % LAB HEMETOLOGY METHOD 05/31/2024 8:01 AM [facility] NRBC Absolute 0.00 <0.10 K/mcL LAB HEMETOLOGY METHOD 05/31/2024 8:01 AM [facility] Neutrophils Relative 57.4 % LAB HEMETOLOGY METHOD 05/31/2024 8:01 AM [facility] Lymphocytes Relative 23.6 % LAB HEMETOLOGY METHOD 05/31/2024 8:01 AM [facility] Monocytes Relative 13.5 % LAB HEMETOLOGY METHOD 05/31/2024 8:01 AM [facility] Eosinophils Relative 4.4 % LAB HEMETOLOGY METHOD 05/31/2024 8:01 AM [facility] Basophils Relative 0.7 % LAB HEMETOLOGY METHOD 05/31/2024 8:01 AM EDT [facility] Immature Granulocytes Relative 0.4 % LAB HEMETOLOGY METHOD 05/31/2024 8:01 AM EDT [facility] Neutrophils Absolute 4.88 1.50 - 7.00 K/mcL LAB HEMETOLOGY METHOD 05/31/2024 8:01 AM EDT [facility] Lymphocytes Absolute 2.00 1.00 - 5.00 K/mcL LAB HEMETOLOGY METHOD 05/31/2024 8:01 AM EDT [facility] Monocytes Absolute 1.15(H) 0.20 - 1.00 K/mcL LAB HEMETOLOGY METHOD 05/31/2024 8:01 AM EDT [facility] Eosinophils Absolute 0.37 0.00 - 0.50 K/mcL LAB HEMETOLOGY METHOD 05/31/2024 8:01 AM EDT [facility] Basophils Absolute 0.06 0.00 - 0.20 K/mcL LAB HEMETOLOGY METHOD 05/31/2024 8:01 AM EDT [facility] Immature Granulocytes Absolute 0.03 0.00 - 0.03 K/mcL LAB HEMETOLOGY METHOD 05/31/2024 8:01 AM [facility] Blood Venous blood specimen / Unknown 05/31/2024 7:14 AM EDT 05/31/2024 7:55 AM EDT us Caleb Mckeon MD LAB BLOOD ORDERABLES Final Resul t [facility] [address] [place] [address], * Vitamin D 25 hydroxy (05/31/2024 7:14 AM EDT) [facility] Signature Vit D, 25-Hydroxy 45.3 30.0 - 80.0 ng/mL LAB CHEMISTRY METHOD 05/31/2024 8:35 AM EDT [facility] Blood Venous blood specimen / Unknown 05/31/2024 7:14 AM EDT 05/31/2024 7:55 AM EDT us Caleb Mckeon MD LAB BLOOD ORDERABLES Final Resul t Performing Organization Address [facility] Co de Phone Number [facility] [address] [place] [address], [place] [phone] * (ABNORMAL) Thyroid stimulating hormone (05/31/2024 7:14 AM EDT) TSH 4.18(H) 0.40 - 4.00 mcIU/mL LAB CHEMISTRY METHOD 05/31/2024 8:35 AM EDT [facility] Blood Venous blood specimen / Unknown 05/31/2024 7:14 AM EDT 05/31/2024 7:55 AM EDT us Caleb Mckeon MD LAB BLOOD ORDERABLES Final Resul t Performing Organization Address [facility] de Phone Number [facility] [address] [place] [address], [place] [phone] * Hemoglobin A1c (05/31/2024 7:14 AM EDT) Hemoglobin A1C 6.2 <6.5 % LAB CHEMISTRY METHOD 05/31/2024 10:32 AM EDT [facility] Mean Bld Glu Estim. 131 mg/dL LAB CHEMISTRY METHOD 05/31/2024 10:32 AM EDT [facility] Blood Venous blood specimen / Unknown 05/31/2024 7:14 AM EDT 05/31/2024 7:55 AM EDT us Caleb Mckeon MD LAB BLOOD ORDERABLES Final Resul t Performing Organization Address [facility] Co de Phone Number [facility] [address] [place] [address], [place] [phone] * Lipid panel with reflex to direct LDL (05/31/2024 7:14 AM EDT) Cholesterol 86 0 - 200 mg/dL LAB CHEMISTRY METHOD 05/31/2024 8:27 AM EDT [facility] Triglycerides 99 0 - 150 mg/dL LAB CHEMISTRY METHOD 05/31/2024 8:27 AM EDT [facility] HDL 53 >=40 mg/dL LAB CHEMISTRY METHOD 05/31/2024 8:27 AM EDT [facility] LDL Calculated 13 0 - 100 mg/dL LAB CHEMISTRY METHOD 05/31/2024 8:27 AM T [facility] VLDL Cholesterol Kevyn 19.8 mg/dL LAB CHEMISTRY METHOD 05/31/2024 8:27 AM T [facility] Non HDL Chol. (LDL+VLDL) 33 <145 mg/dL LAB CHEMISTRY METHOD 05/31/2024 8:27 AM T [facility] Chol/HDL Ratio 1.6 0.0 - 4.4 LAB CHEMISTRY METHOD 05/31/2024 8:27 AM T [facility] Blood Venous blood specimen / Unknown 05/31/2024 7:14 AM EDT 05/31/2024 7:55 AM EDT Caleb Mckeon MD LAB BLOOD ORDERABLES Final Resul t [facility] [address] [place] [address], [place] [phone] * (ABNORMAL) Comprehensive metabolic panel (05/31/2024 7:14 AM EDT) Sodium 132(L) 133 - 145 mmol/L LAB CHEMISTRY METHOD 05/31/2024 8:27 AM EDT [facility] Potassium 4.9 3.5 - 5.5 mmol/L LAB CHEMISTRY METHOD 05/31/2024 8:27 AM [facility] Chloride 102 96 - 110 mmol/L LAB CHEMISTRY METHOD 05/31/2024 8:27 AM [facility] CO2 24 21 - 32 mmol/L LAB CHEMISTRY METHOD 05/31/2024 8:27 AM [facility] Anion Gap 6 3 - 11 LAB CHEMISTRY METHOD 05/31/2024 8:27 AM [facility] Glucose 120(H) 70 - 100 mg/dL LAB CHEMISTRY METHOD 05/31/2024 8:27 AM [facility] BUN 12 5 - 25 mg/dL LAB CHEMISTRY METHOD 05/31/2024 8:27 AM [facility] Creatinine 1.16(H) 0.50 - 1.10 mg/dL LAB CHEMISTRY METHOD 05/31/2024 8:27 AM [facility] eGFR 54(L) >=60 mL/min/1. 73m2 LAB CHEMISTRY METHOD 05/31/2024 8:27 AM [facility] Comment:Calculation based on the Chronic Kidney Disease Epidemiology Collaboration (CKD-EPI) equation refit without adjustment for race. BUN/Creatinine Ratio 10.3 LAB CHEMISTRY METHOD 05/31/2024 8:27 AM [facility] Calcium 9.3 8.5 - 10.5 mg/dL LAB CHEMISTRY METHOD 05/31/2024 8:27 AM [facility] AST (SGOT) 13 10 - 42 unit/L LAB CHEMISTRY METHOD 05/31/2024 8:27 AM [facility] ALT (SGPT) 19 10 - 60 unit/L LAB CHEMISTRY METHOD 05/31/2024 8:27 AM [facility] Alkaline Phosphatase 78 42 - 121 unit/L LAB CHEMISTRY METHOD 05/31/2024 8:27 AM [facility] Total Protein 6.5 6.0 - 8.0 g/dL LAB CHEMISTRY METHOD 05/31/2024 8:27 AM EDT [facility] Albumin 3.3 3.2 - 5.0 g/dL LAB CHEMISTRY METHOD 05/31/2024 8:27 AM EDT [facility] Total Bilirubin 0.2 0.0 - 1.4 mg/dL LAB CHEMISTRY METHOD 05/31/2024 8:27 AM EDT [facility] Blood Venous blood specimen / Unknown 05/31/2024 7:14 AM EDT 05/31/2024 7:55 AM EDT us Caleb Mckeon MD LAB BLOOD ORDERABLES Final Resul t [facility] [address] [place] [address], [place] [phone] documented in this encounter Visit Diagnoses Diagnosis Schizoaffective disorder, bipolar type (CMS/[facility] V24, [facility] V28) Schizoaffective disorder, unspecified condition Type 2 diabetes mellitus without complications (CMS/HCC V24, CMS/[facility] V28) Other longterm (current) drug therapy Hypothyroidism, unspecified Hyperlipidemia, unspecified documented in this encounter Care Teams Retail Director Relationship Specialty Start Date End Date Caleb Mckeon MD [address] [place] [address] PCP - General Internal Medicine 05/31/24 documented as of this encounter
--- OUTSIDE RECORDS SUMMARY | 2024-12-17 09:35 | XMS_ITS | Encounter Summary ---
Author Organization [employer] Address [address] [place] [address] Care Team Providers Care Training And Development Rep Name Role Phone Caleb Mckeon MD Primary Care Provider [phone] Encounter Details Date Type Department Care Team (Latest Contact Info) Description 11/13/2024 Lab Requisition [facility] - Main Lab [address] [facility] [place] [address] Caleb Mckeon MD [address] [place] [address] [address] [place], [place] Schizoaffective disorder, bipolar type (CMS/HCC V24, CMS/HCC V28); Abnormal results of thyroid function studies; Encounter for screening for lipoid disorders; Vitamin D deficiency, unspecified Social History Tobacco Use Types Packs/Day [...] deficiency, unspecified CBC WITH AUTO DIFFERENTIAL Routine 11/13/2024 [...] for lipoid disorders Vitamin D deficiency, unspecified documented in this encounter Results * (ABNORMAL) CBC auto differential (11/13/2024 6:44 AM EDT) [facility] WBC 7.4 4.8 - 10.8 K/mcL LAB HEMETOLOGY METHOD 11/13/2024 8:25 AM [facility] RBC 4.70 3.80 - 4.80 M/mcL LAB HEMETOLOGY METHOD 11/13/2024 8:25 AM [facility] Hemoglobin 11.2(L) 11.5 - 16.0 g/dL LAB HEMETOLOGY METHOD 11/13/2024 8:25 AM [facility] Hematocrit 35.0 35.0 - 47.0 % LAB HEMETOLOGY METHOD 11/13/2024 8:25 AM [facility] MCV 74.2(L) 79.0 - 98.0 FL LAB HEMETOLOGY METHOD 11/13/2024 8:25 AM [facility] MCH 23.7(L) 27.0 - 32.0 pcg LAB HEMETOLOGY METHOD 11/13/2024 8:25 AM [facility] MCHC 32.0 32.0 - 37.0 g/dL LAB HEMETOLOGY METHOD 11/13/2024 8:25 AM [facility] RDW 17.2(H) 11.0 - 15.0 % LAB HEMETOLOGY METHOD 11/13/2024 8:25 AM [facility] Platelets 323 130 - 400 K/mcL LAB HEMETOLOGY METHOD 11/13/2024 8:25 AM [facility] MPV 9.0 7.0 - 11.0 FL LAB HEMETOLOGY METHOD 11/13/2024 8:25 AM [facility] NRBC 0.0 <1.0 % LAB HEMETOLOGY METHOD 11/13/2024 8:25 AM [facility] NRBC Absolute 0.00 <0.10 K/mcL LAB HEMETOLOGY METHOD 11/13/2024 8:25 AM [facility] Neutrophils Relative 51.9 % LAB HEMETOLOGY METHOD 11/13/2024 8:25 AM [facility] Lymphocytes Relative 31.0 % LAB HEMETOLOGY METHOD 11/13/2024 8:25 AM [facility] Monocytes Relative 12.7 % LAB HEMETOLOGY METHOD 11/13/2024 8:25 AM [facility] Eosinophils Relative 3.3 % LAB HEMETOLOGY METHOD 11/13/2024 8:25 AM [facility] Basophils Relative 0.7 % LAB HEMETOLOGY METHOD 11/13/2024 8:25 AM [facility] Immature Granulocytes Relative 0.4 % LAB HEMETOLOGY METHOD 11/13/2024 8:25 AM [facility] Neutrophils Absolute 3.83 1.50 - 7.00 K/[facility] LAB HEMETOLOGY METHOD 11/13/2024 8:25 AM EDT [facility] Lymphocytes Absolute 2.29 1.00 - 5.00 K/[facility] LAB HEMETOLOGY METHOD 11/13/2024 8:25 AM EDT [facility] Monocytes Absolute 0.94 0.20 - 1.00 K/[facility] LAB HEMETOLOGY METHOD 11/13/2024 8:25 AM EDT [facility] Eosinophils Absolute 0.24 0.00 - 0.50 K/[facility] LAB HEMETOLOGY METHOD 11/13/2024 8:25 AM EDT [facility] Basophils Absolute 0.05 0.00 - 0.20 K/[facility] LAB HEMETOLOGY METHOD 11/13/2024 8:25 AM EDT [facility] Immature Granulocytes Absolute 0.03 0.00 - 0.03 K/[facility] LAB HEMETOLOGY METHOD 11/13/2024 8:25 AM EDT [facility] Blood Venous blood specimen / Unknown 11/13/2024 6:44 AM EDT 11/13/2024 7:48 AM EDT us Caleb Mckeon MD LAB BLOOD ORDERABLES Final Resul t [facility] [address] [place] [address], * Vitamin D 25 hydroxy (11/13/2024 6:44 AM EDT) Vit D, 25-Hydroxy 53.8 30.0 - 80.0 ng/mL LAB CHEMISTRY METHOD 11/13/2024 9:58 AM EDT [facility] Blood Venous blood specimen / Unknown 11/13/2024 6:44 AM EDT 11/13/2024 7:48 AM EDT us Caleb Mckeon MD LAB BLOOD ORDERABLES Final Resul t Performing Organization Address [facility]/ZIP Co de Phone Number [facility] [address] [place] [address], [place] [phone] * Thyroid stimulating hormone (11/13/2024 6:44 AM EDT) Pathologist [facility] TSH 1.35 0.40 - 4.00 mcIU/mL LAB CHEMISTRY METHOD 11/13/2024 9:58 AM EDT [facility] Blood Venous blood specimen / Unknown 11/13/2024 6:44 AM EDT 11/13/2024 7:48 AM EDT us Caleb Mckeon MD LAB BLOOD ORDERABLES Final Resul t Performing Organization Address [facility] Co de Phone Number [facility] [address] [place] [address], [place] [phone] * Lipid panel with reflex to direct LDL (11/13/2024 6:44 AM EDT) [facility] Cholesterol 93 0 - 200 mg/dL LAB [...] 4.4 LAB CHEMISTRY METHOD 11/13/2024 9:09 AM [facility] Blood Venous blood specimen / Unknown 11/13/2024 6:44 AM EDT 11/13/2024 7:48 AM EDT us Caleb Mckeon MD LAB BLOOD ORDERABLES Final Resul t [facility] [address] [place] [address], [place] [phone] * Comprehensive metabolic panel (11/13/2024 6:44 AM EDT) Sodium 133 133 - 145 mmol/L LAB CHEMISTRY METHOD 11/13/2024 9:08 AM [facility] Potassium 4.3 3.5 - 5.5 mmol/L LAB CHEMISTRY METHOD 11/13/2024 9:08 AM [facility] Chloride 101 96 - 110 mmol/L LAB CHEMISTRY METHOD 11/13/2024 9:08 AM [facility] CO2 24 21 - 32 mmol/L LAB CHEMISTRY METHOD 11/13/2024 9:08 AM [facility] Anion Gap 8 3 - 11 LAB CHEMISTRY METHOD 11/13/2024 9:08 AM [facility] Glucose 93 70 - 100 mg/dL LAB CHEMISTRY METHOD 11/13/2024 9:08 AM [facility] BUN 10 5 - 25 mg/dL LAB CHEMISTRY METHOD 11/13/2024 9:08 AM [facility] Creatinine 0.86 0.50 - 1.10 mg/dL LAB CHEMISTRY METHOD 11/13/2024 9:08 AM [facility] eGFR 77 >=60 mL/min/1. 73m2 LAB CHEMISTRY METHOD 11/13/2024 9:08 AM [facility] Comment:Calculation based on the Chronic Kidney Disease Epidemiology Collaboration (CKD-EPI) equation refit without adjustment for race. BUN/Creatinine Ratio 11.6 LAB CHEMISTRY METHOD 11/13/2024 9:08 AM [facility] Calcium 9.1 8.5 - 10.5 mg/dL LAB CHEMISTRY METHOD 11/13/2024 9:08 AM [facility] AST (SGOT) 10 10 - 42 unit/L LAB CHEMISTRY METHOD 11/13/2024 9:08 AM [facility] ALT (SGPT) 20 10 - 60 unit/L LAB CHEMISTRY METHOD 11/13/2024 9:08 AM [facility] Alkaline Phosphatase 71 42 - 121 unit/L LAB CHEMISTRY METHOD 11/13/2024 9:08 AM [facility] Total Protein 6.1 6.0 - 8.0 g/dL LAB CHEMISTRY METHOD 11/13/2024 9:08 AM [facility] Albumin 3.5 3.2 - 5.0 g/dL LAB CHEMISTRY METHOD 11/13/2024 9:08 AM [facility] Total Bilirubin 0.3 0.0 - 1.4 mg/dL LAB CHEMISTRY METHOD 11/13/2024 9:08 AM [facility] Blood Venous blood specimen / Unknown 11/13/2024 6:44 AM EDT 11/13/2024 7:48 AM EDT us Caleb Mckeon MD LAB BLOOD ORDERABLES Final Resul t [facility] [address] [place] [address], documented in this encounter Visit Diagnoses Diagnosis Schizoaffective disorder, bipolar type (CMS/HCC V24, CMS/HCC V28) Schizoaffective disorder, unspecified condition Abnormal results of thyroid function studies Nonspecific abnormal results of thyroid function study Encounter for screening for lipoid disorders Vitamin D deficiency, unspecified documented in this encounter Care Teams Training And Development Rep Relationship Specialty Start Date End Date Caleb Mckeon MD [address] [place] [address] PCP - General Internal Medicine 05/31/24 documented as of this encounter
--- NOTE | 2024-12-17 09:58 | PC.NURSE ---
pt incontinent of stool - nirmal care performed. straight catheterization performed - 500ml of clear/dark yellow/dmitri non-foul smelling urine noted immediately post output. urine specimen obtained/sent to lab. pt to CT at this time. plan of care ongoing.
[2024-12-17 10:04] LABS: Appearance Urine Clear; Glucose Urine UA Negative (Negative); PH 6.0 (5.0-9.0); Specific Gravity - Urine 1.025 (1.005-1.025); UMIC TRIGGER UACC YES
[2024-12-17] MEDS: iohexoL 350 MG/ML 100 ML INFUS..BTL IV (10:10)
[2024-12-17 10:49] LABS: Reflex Lactate? Lactic Acid Added
--- NOTE | 2024-12-17 11:29 | PC.NURSE ---
delay in repeat lactic d/t pt being a difficult stick. after multiple attempts made by multiple staff members, lab obtained/sent to lab.
[2024-12-17 11:58] LABS: ~Lactic Acid-LAB USE ONLY 2.5 mmol/L (0.5-2.0)
--- NOTE | 2024-12-17 11:58 | PC.NURSE ---
critical lab value received at this time - lactic of 2.5 - MD Fabian notified/aware.
--- NOTE | 2024-12-17 12:44 | PHA.MEDREC ---
Addendum entered by Vu Galo RPh 12/17/24 14:10: Reviewed by [facility] Addendum entered by Vu Galo RPh 12/17/24 13:55: Reviewed by GARCIA Original Note: Pharmacy Consult ? Medication Reconciliation Pharmacy has completed the medication reconciliation. Utilized med list from [facility].
--- NOTE | 2024-12-17 12:54 | PM.IMHP ---
History of Present Illness Date of Service: 12/17/24 Chief Complaint: AMS Pt with hx of IBS, HLD, OCD, COPD, hypothyroidism, PTSD, schizoaffective disorder, and recent UTI was on cipro [facility] with c/o AMS. EMS found her to be hypoxic with O2 sats 86% on RA Upon my encounter in ed, pt is awake and answers questions to some extent. She has flat affect, moving hands around. She states that she wants to get out of this place. She complains if chest pain with breathing and abdominal pain. She denies vomiting, appetite change, headache, fever, focal weakness or cough. Unable to obtain detailed history given that pt's tend to derail often and is focussed on leaving the hosp. accoridng to ed report, pt ambulates indenpendtly and is alert and oriented. Review of Systems Constitutional: Constitutional: Reports as per HPI ENT: Reports as per HPI Cardiovascular: Cardiovascular: Denies chest pain, Denies chest pain at rest, Denies edema, Denies irregular heart rhythm and Denies dyspnea Respiratory: Respiratory: Reports no additional respiratory complaints and Denies dyspnea Gastrointestinal: Gastrointestinal: Reports abdominal pain, Denies hematochezia, Denies heartburn and Denies diarrhea Genitourinary: Genitourinary: Denies pelvic pain and Denies urinary urgency Musculoskeletal: Musculoskeletal: Reports no additional musculoskeletal complaints Integumentary/Breasts: Skin/Breast: Reports system reviewed and no additional complaints, except as docu Neurologic: Reports system reviewed and no additional complaints, except as documented Endocrine: Endocrine: Reports no additional endocrine complaints Hematologic/Lymphatic: Hematologic/Lymphatic: Reports no additional hematologic/lymphatic complaints [facility] Medical History (Updated 12/17/24 @ 13:15 by Angle Fabian MD) COPD (chronic obstructive pulmonary disease) Anxiety Hypothyroidism HLD (hyperlipidemia) UTI (urinary tract infection) PTSD (post-traumatic stress disorder) Diabetes Schizoaffective disorder Social History (Updated 12/17/24 @ 08:26 by Tia Blake DO) Household Members: None Housing: Apartment Do you presently have visiting nurse or other home services: Yes Patient Tobacco Use Status: Current everyday Tobacco user Tobacco use type: Cigarette Smoked in Last 30 Days: Yes Patient Interested in Nicotine Replacement: No Use of substances other than those prescribed or required for medical reasons: No Advance Directives: No Advance Directives Information Provided: No Do you have a plan to hurt others: No Plan Recently lost weight without trying: No Eating poorly because of decreased appetite: No Nutrition Risks: No Nutritional Risk Patient : No : No Poor oral hygiene: Yes Meds Allergies Allergy/AdvReac Type Severity Reaction Status Date / Time celecoxib Allergy Unknown Verified 12/17/24 08:10 fish derived (fish) Allergy Unknown Verified 12/17/24 08:10 gabapentin Allergy Unknown Verified 12/17/24 08:10 guanfacine Allergy Unknown Verified 12/17/24 08:10 ibuprofen Allergy Unknown Verified 12/17/24 08:10 olanzapine Allergy Unknown Verified 12/17/24 08:10 Penicillins Allergy Unknown Verified 12/17/24 08:10 prazosin Allergy Unknown Verified 12/17/24 08:10 Active Medications: Current Medications Acetaminophen (Acetaminophen 325 Mg Tablet) 650 mg PO Q6H PRN PRN Reason: Pain, Mild 1-3,fever,headache Calcium Carbonate (Calcium Carbonate 750 Mg Tab.Chew) 750 mg PO Q4H PRN PRN Reason: Heartburn Ceftriaxone Sodium (Ceftriaxone Sodium 1 Gm Vial) 1 gm IVPUSH DAILY [facility] Enoxaparin Sodium (Enoxaparin Sodium 40 Mg/0.4 Ml Syringe) 40 mg SUBCUT Q24H [facility] Last Admin: 12/17/24 11:46 Dose: 40 mg Azithromycin 500 mg/ Sodium (Chloride) 250 mls @ 125 mls/hr IV DAILY [facility] Magnesium Hydroxide (Milk Of Magnesia 30 Ml Oral.Susp) 30 ml PO DAILY PRN PRN Reason: Constipation Melatonin (Melatonin 3 Mg Tablet) 6 mg PO BEDTIME PRN PRN Reason: Insomnia Sodium Chloride (0.9 % Sodium Chloride Flush 3 Ml Syringe) 3 ml IVFLUSH QSHIFT [facility] Home Medications ?Medication ?Instructions ?Recorded ?Confirmed ?Last Taken ?Type acetaminophen 325 mg tablet 650 mg PO Q6H PRN Fever/Pain 12/17/24 12/17/24 Unknown History albuterol sulfate 90 mcg/actuation 1 puff inhalation Q4H PRN 12/17/24 12/17/24 Unknown History aerosol inhaler Shortness Of Breath Or Wheezing ascorbic acid (vitamin C) 500 mg 500 mg PO DAILY 12/17/24 12/17/24 Unknown History tablet benzocaine 15 mg-menthol 3.6 mg 1 kemi mucous membrane Q2H PRN Sore 12/17/24 12/17/24 Unknown History lozenges (Cepacol Sore Throat Throat (benzocaine-menthol)) calcium carbonate (Tums E-X) 600 mg PO Q4H PRN Acid Reflux 12/17/24 12/17/24 Unknown History cholecalciferol (vitamin D3) 25 25 mcg PO DAILY 12/17/24 12/17/24 Unknown History mcg (1,000 unit) tablet (Vitamin D3) cyclobenzaprine 10 mg tablet 10 mg PO DAILY PRN Sciatica 12/17/24 12/17/24 Unknown History diphenhydramine HCl 25 mg tablet 25 mg PO Q8H PRN Allergy Symptoms 12/17/24 12/17/24 Unknown History (Benadryl Allergy) ferrous sulfate 325 mg (65 mg 325 mg PO DAILY 12/17/24 12/17/24 Unknown History iron) tablet fluticasone 250 mcg-salmeterol 50 1 inh inhalation BID 12/17/24 12/17/24 Unknown History mcg/dose blistr powdr for inhalation (Advair Diskus) fluticasone furoate 100 1 inh inhalation DAILY 12/17/24 12/17/24 Unknown History mcg-vilanterol 25 mcg/dose inhalation powder (Breo Ellipta) glucagon HCl 1 mg solution for 1 mg subcut Q15M PRN Hypoglycemia 12/17/24 12/17/24 Unknown History injection (Glucagon (HCl) Emergency Kit) hydroxyzine HCl 25 mg tablet 25 mg PO DAILY 12/17/24 12/17/24 Unknown History hydroxyzine HCl 50 mg tablet 50 mg PO DAILY 12/17/24 12/17/24 Unknown History hydroxyzine HCl 50 mg tablet 100 mg PO BID 12/17/24 12/17/24 Unknown History insulin lispro 100 unit/mL See Protocol subcut TUTHSA 12/17/24 12/17/24 Unknown History subcutaneous solution (Humalog U-100 Insulin) levothyroxine 50 mcg tablet 50 mcg PO DAILY@0600 12/17/24 12/17/24 Unknown History lidocaine 4 % topical patch 1 patch topical DAILY 12/17/24 12/17/24 Unknown History lidocaine HCl 2 % mucosal solution 15 ml mucous membrane Q6H PRN Gum 12/17/24 12/17/24 Unknown History (Lidocaine Viscous) Pain/Oral Ulcers loperamide 2 mg tablet 2 mg PO DAILY PRN Loose Stool 12/17/24 12/17/24 Unknown History loratadine 10 mg tablet 10 mg PO DAILY PRN Post Nasal Drip 12/17/24 12/17/24 Unknown History melatonin 1 mg tablet 1 mg PO BEDTIME 12/17/24 12/17/24 Unknown History melatonin 3 mg tablet 3 mg PO BEDTIME 12/17/24 12/17/24 Unknown History metformin 1,000 mg tablet 1,000 mg PO BID 12/17/24 12/17/24 Unknown History mirtazapine 15 mg tablet 7.5 mg PO BEDTIME 12/17/24 12/17/24 Unknown History naloxone 0.4 mg/mL injection 0.4 mg subcut Q3M PRN Opioid 12/17/24 12/17/24 Unknown History solution Overdose nystatin 100,000 unit/gram topical 1 appl topical TID 12/17/24 12/17/24 Unknown History powder ondansetron HCl 4 mg tablet 4 mg PO Q6H PRN Nausea And Vomiting 12/17/24 12/17/24 Unknown History pantoprazole 40 mg tablet,delayed 40 mg PO DAILY@0630 12/17/24 12/17/24 Unknown History release polyethylene glycol 3350 17 17 g PO DAILY 12/17/24 12/17/24 Unknown History gram/dose oral powder (Miralax) quetiapine 400 mg tablet (Seroquel) 400 mg PO BEDTIME 12/17/24 12/17/24 Unknown History risperidone 1 mg tablet 1 mg PO DAILY 12/17/24 12/17/24 Unknown History risperidone 2 mg tablet (Risperdal) 2 mg PO BEDTIME 12/17/24 12/17/24 Unknown History ropinirole 0.25 mg tablet 0.25 mg PO DAILY 12/17/24 12/17/24 Unknown History rosuvastatin 10 mg tablet 10 mg PO BEDTIME 12/17/24 12/17/24 Unknown History sennosides 8.6 mg tablet (senna) 8.6 mg PO DAILY PRN Constipation 12/17/24 12/17/24 Unknown History sitagliptin phosphate 50 mg tablet 50 mg PO DAILY 12/17/24 12/17/24 Unknown History (Januvia) sodium phosphates 19 gram-7 118 ml MO DAILY PRN Constipation 12/17/24 12/17/24 Unknown History gram/118 mL enema (Fleet Enema) tramadol 50 mg tablet 50 mg PO TID 12/17/24 12/17/24 Unknown History trazodone 100 mg tablet 100 mg PO BEDTIME 12/17/24 12/17/24 Unknown History triamcinolone acetonide 55 mcg 2 spray intranasal DAILY 12/17/24 12/17/24 Unknown History nasal spray aerosol (Nasacort) Physical Exam Vital Signs and Narrative: Vital Signs: Last Vital Signs Temp 97.8 F 12/17/24 11:46 Pulse 101 H 12/17/24 11:46 Resp 14 12/17/24 11:46 BP 141/78 H 12/17/24 11:46 Pulse Ox 95 12/17/24 11:46 O2 Del Method Room Air 12/17/24 11:46 BMI result Body Mass Index 26.6 Alert. Oriented X1. No acute distress. calm and cooperative upon my encounter Eyes: Pupils equal, round and reactive to light. ENT: Pharynx normal. Neck: Normal inspection. Neck supple. CVS: tachycardic heart rate and rhythm. no ALLYSSA Respiratory: No respiratory distress. Breath sounds bases diminished Abdomen: Soft but reports ttp throughout no rebound, umbilicus mild erythema noted but no abscess. Skin: Skin warm and dry. Normal skin color. Normal skin turgor. Extremities: No lower extremity edema. Neuro: Oriented X 1. No motor deficit. No sensory deficit. will not participate in exam Results Labs 12/17/24 08:43 12/17/24 08:43 Labs: Laboratory Results - last 24 hr 12/17/24 12/17/24 12/17/24 08:42 08:43 08:49 MCV 69.1 L MCH 23.6 L MCHC 34.1 RDW 15.7 Plt Count 280 MPV 8.9 L Immature Gran % (Auto) 0.6 H Neut % (Auto) 79.1 H Lymph % (Auto) 8.8 L Christian % (Auto) 9.5 Eos % (Auto) 1.5 Baso % (Auto) 0.5 Lymph # (Auto) 1.1 L Christian # (Auto) 1.1 Eos # (Auto) 0.2 Baso # (Auto) 0.1 Abs Immat Gran (auto) 0.07 H Absolute Neuts (auto) 9.4 H Absolute Nucleated RBC 0.000 Nucleated RBC % (auto) 0.0 VBG pH 7.38 VBG pCO2 30 VBG pO2 43 VBG HCO3 18 L VBG O2 Saturation 63.0 VBG Base Excess -5.5 Anion Gap 14 Estim Creat Clear Calc 58.1 Estimated GFR > 60 Random Glucose 152 H Lactic Acid 2.1 H* Lactic Acid F/U @ 2Hr Calcium 9.5 Magnesium 1.8 Total Bilirubin 0.5 Direct Bilirubin 0.3 AST 127 H ALT 136 H Alkaline Phosphatase 118 H Ammonia 20 Troponin I High Sens 3.4 C-Reactive Protein 22.84 H Total Protein 6.7 Albumin 3.6 Lipase 8 Urine Color Urine Appearance Urine pH Ur Specific [place] Urine Protein Urine Glucose (UA) Urine Ketones Urine Blood Urine Nitrite Ur Leukocyte Esterase Urine RBC Urine WBC Ur Squamous Epith Cells Urine Bacteria Hyaline Casts COVID-19 (ARCENIO) Negative COVID-19 Clin Com See Note Influenza Type A (HECTOR) Negative Influenza Type B (HECTOR) Negative Influenza A & B Note See Note 12/17/24 12/17/24 09:51 11:27 MCV MCH MCHC RDW Plt Count MPV Immature Gran % (Auto) Neut % (Auto) Lymph % (Auto) Christian % (Auto) Eos % (Auto) Baso % (Auto) Lymph # (Auto) Christian # (Auto) Eos # (Auto) Baso # (Auto) Abs Immat Gran (auto) Absolute Neuts (auto) Absolute Nucleated RBC Nucleated RBC % (auto) VBG pH VBG pCO2 VBG pO2 VBG HCO3 VBG O2 Saturation VBG Base Excess Anion Gap Estim Creat Clear Calc Estimated GFR Random Glucose Lactic Acid Lactic Acid F/U @ 2Hr 2.5 H* Calcium Magnesium Total Bilirubin Direct Bilirubin AST ALT Alkaline Phosphatase Ammonia Troponin I High Sens C-Reactive Protein Total Protein Albumin Lipase Urine Color Dark Yellow Urine Appearance Clear Urine pH 6.0 Ur Specific [place] 1.025 Urine Protein 30 (1+) H Urine Glucose (UA) Negative Urine Ketones Negative Urine Blood Negative Urine Nitrite Negative Ur Leukocyte Esterase Trace H Urine RBC 0-2 Urine WBC 0-5 Ur Squamous Epith Cells 0-2 Urine Bacteria None Seen Hyaline Casts 0-2 COVID-19 (ARCENIO) COVID-19 Clin Com Influenza Type A (HECTOR) Influenza Type B (HECTOR) Influenza A & B Note Imaging Radiologist's Impressions: Impressions Chest X-Ray 12/17/24 08:20 IMPRESSION: Diffuse increased interstitial markings. Focal airspace opacity is identified. Electronically signed by: Wilfred Soliz MD 12/17/2024 08:34 AM EDT RP Abdomen/Pelvis CT 12/17/24 09:59 IMPRESSION: Patchy groundglass and reticular lung opacities somewhat sparing the posterior segments lower lobes could be chronic but could be related to an atypical pneumonia/pneumonitis. Ficat stage II AVN involving 25-33% of the weightbearing subchondral bone in the anterior right femoral head. Moderate sliding hiatal hernia involving gastric fundus. Moderate stool in the sigmoid colon and rectum. Probable high density/hemorrhagic cysts in the lower pole the right kidney. Consider nonemergent ultrasound to confirm cystic nature of the lesions. Fleischner guidelines were followed. Electronically signed by: Feng Malhotra MD 12/17/2024 10:41 AM EDT RP Head CT 12/17/24 09:59 IMPRESSION: No acute intracranial abnormality. Mild frontal lobe atrophy. Electronically signed by: Feng Malhotra MD 12/17/2024 10:28 AM EDT RP Assessment and Plan (1) Acidosis, lactic: Status: Acute (2) Encephalopathy acute: Status: Acute (3) Pneumonia: Qualifiers: Laterality: unspecified laterality Lung location: unspecified part of lung Pneumonia type: due to unspecified organism Qualified Code(s): J18.9 - Pneumonia, unspecified organism Status: Acute (4) Hypothyroidism: Status: Acute (5) GERD (gastroesophageal reflux disease): Status: Acute (6) Anxiety: Status: Acute (7) COPD (chronic obstructive pulmonary disease): Status: Acute Plan Pt with schizoaffective disorder, OCD, anxiety, HLD, IBS, COPD presented with AMS. Pt was recently diagnosed with UTI and completed 5 days of cipro. PNA: Lactic acidosis sinus tachycardia metabolic encephalopathy p/w AMS likely in the setting of an acute infection UA~ -ve for pyuria CXR~ PNA on RA currently CTH non acute CT abdomen non acute Mild leukocytosis afebrile with sinus tachycardia and mild elevation in BP likely due to infection and anxiety component. - cont ceftriaxone and azithromycin - follow BC - cont IVF - trend VL Schizoaffective disorder anxiety: med rec pending, once done resume home meds. Diabetes: insulin SS hold home PO meds POcs COPD: no wheezing on exam, on RA not in exacerbation resume home inh once med rec is done HLD; resume rousuvastatin once med rec done. Diet: low card cardiac diet DVT px: lovenox sc Full code Pt will be admitted for 2 MN for management of PNA and AMS. med rec pending Total time managing care of this patient today: 60 minutes. Quality Stroke Does the patient have a stroke diagnosis?: No VTE Prior VTE?: No VTE Risk Level:: Medical - moderate - high VTE Device Contraindication: N/A - Device Ordered VTE Drug Contraindication: N/A - Med Ordered
[2024-12-17 13:31] LABS: Reflex Lactate? 2 Y
[2024-12-17] MEDS: Lactated Ringers 1,000 ML 80 ML IVCONT (13:42)
--- NOTE | 2024-12-17 13:44 | PC.NURSE ---
medication administered per provider order. swallows pills whole w/ water w/o difficulty. IVF otherwise infusing @ 80mls/hr. pending bed assignment. plan of care ongoing. call kraft placed within reach.
[2024-12-17 15:33] LABS: ~Lactic Acid-LAB USE ONLY 2.0 mmol/L (0.5-2.0)
[2024-12-17] MEDS: Albuterol/Iprat 2.5/0.5MG 3 ML AMPUL.NEB INHALE ×2 (15:44→19:55)
--- NOTE | 2024-12-17 17:01 | MHC.EDTECH ---
Patient inc therefore patient changed and repositioned
[2024-12-17 18:47] LABS: Glucose, Whole Blood 155 mg/dL (60-115)
--- NOTE | 2024-12-17 20:56 | MHC.EDTECH ---
Patient inc urine/stool therfore changed and repositioned
[2024-12-17 21:30] LABS: Glucose, Whole Blood 156 mg/dL (60-115)
[2024-12-18] VITALS (9 sets, daily range): BP systolic 115–141; BP diastolic 55–95; PULSE 60–137; RESP 14–24; TEMP 36–37.1; O2SAT 90–97
--- NOTE | 2024-12-18 00:21 | HO.NURTONUR ---
Addendum entered by Mariia Tran RN 12/18/24 03:22: pt noted to desat to 86-89% on room air while sleeping, placed pt on 2L NC with improvement to 97%. Original Note: Pt biba from [facility] with reports of increased confusion, upon EMS arrival pt was found to be 86% on room air. Per staff at [facility] pt is ca&o x3 and ambulatory at baseline and pt has been on cipro for the past 5 days and has been compliant. Pt reporting sob and abd pain. Pt is ca&o to self and place, able to make her needs known and incontinent of urine and stool. Pt has 20G IV in LAC and RAC has LR IVF @ 80mls/hr, has been medicated per mar and able to swallow pills whole. Pt being admitted for pneumonia. Pt currently denies any pain at this time. Work up in the ED showed: EKG: sinus tach with PAC Labs WBC- 11.9 VBG HCO3- 18 lactic 2.1--> 2.5--> 2.0 AST- 127 ALT- 136 CRP- 22.84 Chest xray: IMPRESSION: Diffuse increased interstitial markings. Focal airspace opacity is identified. CT abdomen/pelvis: IMPRESSION: Patchy groundglass and reticular lung opacities somewhat sparing the posterior segments lower lobes could be chronic but could be related to an atypical pneumonia/pneumonitis. Ficat stage II AVN involving 25-33% of the weightbearing subchondral bone in the anterior right femoral head. Moderate sliding hiatal hernia involving gastric fundus. Moderate stool in the sigmoid colon and rectum. Probable high density/hemorrhagic cysts in the lower pole the right kidney. Consider nonemergent ultrasound to confirm cystic nature of the lesions. Head CT: IMPRESSION: No acute intracranial abnormality. Mild frontal lobe atrophy.
[2024-12-18 04:51] LABS: Hematocrit 29.6 % (37.0-47.0); Hemoglobin 10.0 g/dl (12.0-16.0); Mean Corpuscular HGB Conc 33.8 g/dl (31.0-35.0); Mean Corpuscular Hemoglobin 23.3 pg (27.0-33.0); Mean Corpuscular Volume 69.0 fL (80.0-98.0); NRBC Abs Auto 0.000 X10*3/uL (0.0-0.012); NRBC Pct Auto 0.0 /100WBC (0.0-0.2); Platelet Count 235 X10*3/uL (160-400); Red Blood Count 4.29 X10*6/uL (4.20-5.50); White Blood Count 12.3 X10*3/uL (4.8-10.8)
[2024-12-18] MEDS: Throat Lozenge, Medicated LOZENGE 1 LOZENGE MUCOUS MEM (05:01)
[2024-12-18] MEDS: Lactated Ringers 1,000 ML 80 ML IVCONT (06:01)
[2024-12-18 07:28] LABS: Glucose, Whole Blood 115 mg/dL (60-115)
[2024-12-18] MEDS: Albuterol/Iprat 2.5/0.5MG 3 ML AMPUL.NEB INHALE ×3 (07:41→15:06)
[2024-12-18] MEDS: 0.9 % Sodium Chloride Flush 3 ML SYRINGE IVFLUSH (08:40)
--- NOTE | 2024-12-18 10:22 | HO.PM.IMPN ---
Subjective Subjective Date of Service: 12/17/24 Interval History: f/u metabolic encephalopathy d/t PNA noted intermittent tachycardia, no respiratory distress--seems better Physical Exam Vital Signs: Vital Signs: Last Vital Signs Temp 96.8 F 12/18/24 08:00 Pulse 137 H 12/18/24 08:00 Resp 16 12/18/24 08:00 BP 132/88 12/18/24 08:00 Pulse Ox 94 12/18/24 08:00 O2 Del Method Room Air 12/18/24 08:00 O2 Flow Rate 2 12/18/24 03:21 BMI result Body Mass Index 26.6 Const: Other: General: AO to self , no acute distress Resp: no accessory muscle use, normal effort, rhochi bilaterallu CVS: S1,S2,RRR GI: +BS, NT, no distention Skin: No rash Neuro: motor grossly intact Psych: appropriate affect Objective Data Active Medications Acetaminophen (Acetaminophen 325 Mg Tablet) 650 mg PO Q6H PRN PRN Reason: Pain, Mild 1-3,fever,headache Last Admin: 12/18/24 05:11 Dose: 650 mg Documented By: KARL Albuterol/Ipratropium (Albuterol/Iprat 2.5/0.5mg 3 Ml Ampul.Neb) 3 ml INHALE RQ4H WHILE AWAKE [facility] Last Admin: 12/18/24 07:41 Dose: 3 ml Documented By: KEN Albuterol/Ipratropium (Albuterol/Iprat 2.5/0.5mg 3 Ml Ampul.Neb) 3 ml INHALE RQ4H WHILE AWAKE PRN PRN Reason: Shortness of Breath Ascorbic Acid (Ascorbic Acid 500 Mg Tablet) 500 mg PO DAILY [facility] Last Admin: 12/18/24 08:40 Dose: 500 mg Documented By: AGUSTIN Atorvastatin Calcium (Atorvastatin Calcium 40 Mg Tablet) 40 mg PO DAILY [facility] Last Admin: 12/18/24 08:40 Dose: 40 mg Documented By: AGUSTIN Benzocaine (Throat Lozenge, Medicated Lozenge) 1 lozenge MUCOUS MEM Q2H PRN PRN Reason: Sore Throat Last Admin: 12/18/24 05:01 Dose: 1 lozenge Documented By: KARL Calcium Carbonate (Calcium Carbonate 750 Mg Tab.Chew) 750 mg PO Q4H PRN PRN Reason: Heartburn Ceftriaxone Sodium (Ceftriaxone Sodium 1 Gm Vial) 1 gm IVPUSH DAILY [facility] Last Admin: 12/18/24 08:40 Dose: 1 gm Documented By: AGUSTIN Dextrose (Dextrose 50 % 25 Gm/50 Ml Syringe) 25 gm IVPUSH Q15M PRN; Protocol PRN Reason: per Hypoglycemia Standing Ord. Dextrose (Dextrose 50 % 25 Gm/50 Ml Syringe) 25 gm IVPUSH Q15M PRN; Protocol PRN Reason: per Hypoglycemia Standing Ord. Enoxaparin Sodium (Enoxaparin Sodium 40 Mg/0.4 Ml Syringe) 40 mg SUBCUT Q24H [facility] Last Admin: 12/17/24 11:46 Dose: 40 mg Documented By: IVONE Fluticasone/Vilanterol (Fluticasone/Vilanterol 200/25 Blst.W.Dev) 1 puff INHALE RDAILY [facility] Glucose (Glucose Gel 15 Gm Gel..Gram.) 15 gm PO Q15M PRN; Protocol PRN Reason: per Hypoglycemia Standing Ord. Glucose (Glucose Gel 15 Gm Gel..Gram.) 15 gm PO Q15M PRN; Protocol PRN Reason: per Hypoglycemia Standing Ord. Azithromycin 500 mg/ Sodium (Chloride) 250 mls @ 125 mls/hr IV DAILY [facility] Last Admin: 12/18/24 08:40 Dose: 125 mls/hr Documented By: AGUSTIN Lactated Ringer's (Lr) 1,000 mls @ 80 mls/hr IVCONT .[id number] [facility] Last Admin: 12/18/24 06:01 Dose: 80 mls/hr Documented By: KARL Insulin Human Lispro (Insulin Lispro 100 Unit/Ml 3 Ml Vial) 0 unit SUBCUT QIDACHS [facility]; Protocol Last Admin: 12/18/24 07:35 Dose: Not Given Documented By: DALE Non-Admin Reason: No Insulin Coverage Levothyroxine Sodium (Levothyroxine Sodium 50 Mcg Tablet) 50 mcg PO DAILY@0600 [facility] Last Admin: 12/18/24 05:55 Dose: 50 mcg Documented By: KARL Loperamide HCl (Loperamide Hcl 2 Mg Capsule) 2 mg PO DAILY PRN PRN Reason: Loose Stool Loratadine (Loratadine 10 Mg Tablet) 10 mg PO DAILY PRN PRN Reason: Post Nasal Drip Magnesium Hydroxide (Milk Of Magnesia 30 Ml Oral.Susp) 30 ml PO DAILY PRN PRN Reason: Constipation Melatonin (Melatonin 3 Mg Tablet) 6 mg PO BEDTIME PRN PRN Reason: Insomnia Melatonin (Melatonin 3 Mg Tablet) 3 mg PO BEDTIME [facility] Last Admin: 12/17/24 20:31 Dose: 3 mg Documented By: KARL Mirtazapine (Mirtazapine 7.5 Mg Tablet) 7.5 mg PO BEDTIME [facility] Last Admin: 12/17/24 20:31 Dose: 7.5 mg Documented By: KARL Omeprazole (Omeprazole 20 Mg Capsule.Dr) 20 mg PO DAILY@0630 [facility] Last Admin: 12/18/24 05:55 Dose: 20 mg Documented By: KARL Quetiapine Fumarate (Quetiapine Fumarate 400 Mg Tablet) 400 mg PO BEDTIME [facility] Last Admin: 12/17/24 20:31 Dose: 400 mg Documented By: KARL Risperidone (Risperidone 2 Mg Tablet) 2 mg PO BEDTIME [facility] Last Admin: 12/17/24 20:31 Dose: 2 mg Documented By: KARL Risperidone (Risperidone 1 Mg Tablet) 1 mg PO DAILY [facility] Last Admin: 12/18/24 08:40 Dose: 1 mg Documented By: AGUSTIN Ropinirole HCl (Ropinirole Hcl 0.25 Mg Tablet) 0.25 mg PO DAILY [facility] Last Admin: 12/18/24 08:40 Dose: 0.25 mg Documented By: AGUSTIN Sodium Chloride (0.9 % Sodium Chloride Flush 3 Ml Syringe) 3 ml IVFLUSH QSHIFT [facility] Last Admin: 12/18/24 08:40 Dose: 3 ml Documented By: AGUSTIN Labs 12/18/24 03:50 12/17/24 08:43 Labs: Laboratory Results - last 24 hr 12/17/24 12/17/24 12/17/24 11:27 15:10 18:43 MCV MCH MCHC RDW Plt Count MPV Absolute Nucleated RBC Nucleated RBC % (auto) POC Glucose 155 H Lactic Acid F/U @ 2Hr 2.5 H* Lactic Acid F/U @ 4Hr 2.0 12/17/24 12/18/24 12/18/24 21:25 03:50 07:23 MCV 69.0 L MCH 23.3 L MCHC 33.8 RDW 15.5 Plt Count 235 MPV 10.4 Absolute Nucleated RBC 0.000 Nucleated RBC % (auto) 0.0 POC Glucose 156 H 115 Lactic Acid F/U @ 2Hr Lactic Acid F/U @ 4Hr Assessment and Plan (1) Pneumonia: Status: Acute (2) COPD (chronic obstructive pulmonary disease): Status: Acute Plan Pt with schizoaffective, OCD, anxiety, HLD, IBS, COPD presented with AMS. Pt was recently diagnosed with UTI and completed 5 days of cipro, now wiht PNA PNA seen on CXR, Acute Lactic acidosis sinus tachycardia metabolic encephalopathy related to pneumonia, negative CTH, seems better today UA~ negative for pyuria Currently on RA, monitor and O2 as needed CT abdomen non acute Mild leukocytosis afebrile with sinus tachycardia and mild elevation in BP likely due to infection and anxiety component. - cont ceftriaxone and azithromycin - follow BC - cont IVF Schizoaffective disorder anxiety: resume home meds per vitals Diabetes: insulin SS hold home PO meds POcs COPD: no wheezing on exam, on RA not in exacerbation inhalers PRN HLD; resume rousuvastatin once med rec done. Diet: low card cardiac diet DVT px: lovenox sc Full code Quality Stroke Does the patient have a stroke diagnosis?: No VTE Prior VTE?: No VTE Risk Level:: Medical - moderate - high VTE Device Contraindication: N/A - Device Ordered VTE Drug Contraindication: N/A - Med Ordered
[2024-12-18] MEDS: Fluticasone/Vilanterol 200/25 BLST.W.DEV 1 PUFF INHALE (11:20)
[2024-12-18 11:22] LABS: Glucose, Whole Blood 134 mg/dL (60-115)
--- NOTE | 2024-12-18 11:24 | MHC.CM.PN ---
PT FROM [facility] WHERE SHE WILL RETURN WHEN DCD PT IS A LTC PT
[2024-12-18 15:50] LABS: Glucose, Whole Blood 151 mg/dL (60-115)
--- NOTE | 2024-12-18 17:51 | PC.NURSE ---
Patient refused all meals 12/18
[2024-12-18 20:13] LABS: Glucose, Whole Blood 129 mg/dL (60-115)
[2024-12-19] VITALS (17 sets, daily range): BP systolic 102–141; BP diastolic 62–88; PULSE 75–130; RESP 18–29; TEMP 36.1–36.7; O2SAT 72–100
--- NOTE | 2024-12-19 | ECG_ITS ---
Test Reason : tachycardia Blood Pressure : */* mmHG Vent. Rate : 126 BPM Atrial Rate : 126 BPM P-R Int : 200 ms QRS Dur : 72 ms QT Int : 270 ms P-R-T Axes : * -16 101 degrees QTcB Int : 391 ms Sinus tachycardia with Premature supraventricular complexes Possible Anterior infarct , age undetermined Abnormal ECG When compared with ECG of 19-Dec-2024 07:39, Nonspecific T wave abnormality, worse in Anterolateral leads Referred By: Divine Green Electronically Signed By: DENNIS YEBOAH MD
[2024-12-19] MEDS: Lactated Ringers 1,000 ML 80 ML IVCONT (00:50)
[2024-12-19] MEDS: Furosemide 20 MG/2 ML VIAL IVPUSH (05:00)
--- NOTE | 2024-12-19 06:22 | MHC.EVENTN ---
Patient unable to maintain O2 sats, 85% on 4-5 L oxymask, tachycardic, tachypneic, increased WOB noted. Patient received respiratory treatment initially without any effect. . Provider notified and came to bedside to see patient . IVF paused. Labwork, and CXR ordered. Lasix 20 mg IV ordered/administered. Patient placed on non rebreather, Oxygen level 100%. Provider updated. Awaiting pending results, urinated 350ml/dark yellow urine. VSS, will continue to monitor.
[2024-12-19 06:30] LABS: NT Pro B Type Natriuretic Pept 2949.3 pg/mL (<300)
--- NOTE | 2024-12-19 07:00 | CA_ITS ---
Transthoracic Echocardiogram Patient (Last, First, Middle): Jennifer Ronquillo, Gender: F Date of : 1965 Age: 59 Procedure Date: 12/19/2024 Procedure Type: Transthoracic Echocardiogram [place] [facility] [place] 160.02 cm Weight: 67.59 kg BSA: 1.71 m2 Heart Rate: bpm BP: 134 / 73 mmHg Billing Assistant: SHABNAM Referring MD: Chidi Palacios MD Hunter Skin Diver: Isauro Lea MD Symptoms: CHF Study Quality: Technically Difficult ECG Rhythm: Tachycardia with ectopy Conclusions: - 1. Large circumferential pericardial effusion with signs of early cardiac tamponade 2. Normal LV ejection fraction of 60 65% 3. Limited cardiac Dopplers within normal limits Findings Procedure Information The study quality is limited by the patients inability to tolerate the test and an uncooperative patient. Left Ventricle Normal left ventricular size, thickness, and systolic function. The visually estimated ejection fraction is between 60-65%. Spectral Doppler is indicative of an impaired relaxation filling pattern. Right Ventricle Normal right ventricular cavity size. There is normal right ventricular systolic function. Aortic Valve The aortic valve was not well visualized. There is no aortic valve stenosis. There is no aortic valve regurgitation. Mitral Valve The mitral valve was not well visualized. There is no mitral valve regurgitation. There is no mitral valve stenosis. Pulmonic Valve The pulmonic valve was not well visualized. Tricuspid Valve The tricuspid valve was not well visualized. Great Vessels The aorta was not well visualized. The pulmonary artery was not well visualized. Venous The inferior vena cava is normal in size. Inferior vena cava flow indicates hypovolemia. Pericardium/Pleural There is a large circumferential pericardial effusion. There is echo density seen in the pericardial space consistent with fibrinous strands. The inferior vena cava is normal in size with preserved respiratory variability. There is excessive respiratory variation of the mitral valve and tricuspid valve Doppler velocities. Overall findings suggestive of early tamponade physiology Prior Study Comparison No prior study available for comparison. findings were discussed with Dr. Palacios Measurements 2D Linear Measurements IVSd: 1.14 0.6-0.9/0.6-1.0 cm LVIDd: 3.20 3.9-5.3/4.2-5.9 cm LVIDd Index: 1.87 2.4-3.2/2.2-3.1 cm/m2 LVIDs: 2.31 2.0-3.6 cm LVPWd: 1.16 0.7-1.1 cm LV Mass: 138.95 67-162/88-224 g LV Mass Index: 81.26 43-95/49-115 g/m2 2D Systolic Function EF 4C: 58.00 >55% EF 2C: 63.50 >55% EF BiP: 61.60 >55% Mitral Valve MV Pk E: 0.76 MV PK A: 0.87 MV Decel Time: 227.00 E/A: 0.90 E'Medial: 6.64 E/E' Med: 11.40 PHT: 66.00 MVA PHT: 3.33 Decel [place]: 3.35 Aortic Valve AoV Pk Ba: 1.44 AoV Pk Grad: 8.00 LVOT LVOT Pk Ba: 1.29 LVOT Mn Ba: 0.74 LVOT VTI: 0.19 LVOT Pk Grad: 7.00 LVOT Mn Grad: 3.00 Diastolic Function MV Pk E: 0.76 MV Pk A: 0.87 E/A: 0.90 E'Medial: 6.64 E/E' Med: 11.40 Right Ventricle TAPSE (mm): 17.00 TVS' Ba: 15.80 Updated in Other Vendor System with Status of Final Isauro Lea MD electronically signed on 12/19/2024 4:00:24 PM with status of Final
[2024-12-19] MEDS: Albuterol/Iprat 2.5/0.5MG 3 ML AMPUL.NEB INHALE ×4 (07:24→19:44)
[2024-12-19] MEDS: Furosemide 40 MG/4 ML VIAL IVPUSH (07:38)
--- NOTE | 2024-12-19 07:39 | ECG_ITS ---
Test Reason : TACHYCARDIA Blood Pressure : */* mmHG Vent. Rate : 122 BPM Atrial Rate : 122 BPM P-R Int : 160 ms QRS Dur : 64 ms QT Int : 326 ms P-R-T Axes : 24 14 24 degrees QTcB Int : 464 ms Sinus tachycardia with Premature atrial complexes Otherwise normal ECG Previous ECG has undetermined rhythm, needs review Nonspecific T wave abnormality no longer evident in Anterior leads Referred By: [facility] Electron[facility] Signed By: DENNIS YEBOAH MD
--- NOTE | 2024-12-19 07:43 | P.PNIM_ITS ---
Subjective Subjective Date of Service: 12/19/24 Interval History: f/u on pneumonia Pt has become increasingly short of breath this morning, tachypnic tachycardic, increased O2 requirement O2 sat in 80s. stat CXR show Coarse interstitial prominence with peribronchial thickening and faint ground-glass densities. This is slightly increased. Correlation for viral infectious process. BNP level is aproximaly 3000, ABG requirested, give IV Lasix, ECG shows sinus tachycardi. Will esclate care to Med-Tele High-Flow to maintain O2 sat Physical Exam 2 Vital Signs: Vital Signs: Last Vital Signs Temp 97 F 12/19/24 04:00 Pulse 89 12/19/24 07:24 Resp 26 H 12/19/24 07:24 BP 134/73 12/19/24 04:00 Pulse Ox 88 L 12/19/24 04:00 O2 Del Method Aerosol Mask 12/19/24 04:00 O2 Flow Rate 4 12/19/24 04:00 BMI result Body Mass Index 26.6 Const: Other: General: alert, oriented, a bit anxious, Resp: rales at the bases, mild to mod respiratory effort CVS: S1,S2,RRR GI: +BS, NT, no distention Skin: No rash Neuro: motor grossly intact Psych: appropriate affect Objective Data Active Medications Acetaminophen (Acetaminophen 325 Mg Tablet) 650 mg PO Q6H PRN PRN Reason: Pain, Mild 1-3,fever,headache Last Admin: 12/18/24 15:07 Dose: 650 mg Documented By: AGUSTIN Albuterol/Ipratropium (Albuterol/Iprat 2.5/0.5mg 3 Ml Ampul.Neb) 3 ml INHALE RQ4H WHILE AWAKE [facility] Last Admin: 12/19/24 07:24 Dose: 3 ml Documented By: JESSEINA Albuterol/Ipratropium (Albuterol/Iprat 2.5/0.5mg 3 Ml Ampul.Neb) 3 ml INHALE RQ4H WHILE AWAKE PRN PRN Reason: Shortness of Breath Ascorbic Acid (Ascorbic Acid 500 Mg Tablet) 500 mg PO DAILY [facility] Last Admin: 12/18/24 08:40 Dose: 500 mg Documented By: AGUSTIN Atorvastatin Calcium (Atorvastatin Calcium 40 Mg Tablet) 40 mg PO DAILY [facility] Last Admin: 12/18/24 08:40 Dose: 40 mg Documented By: AGUSTIN Benzocaine (Throat Lozenge, Medicated Lozenge) 1 lozenge MUCOUS MEM Q2H PRN PRN Reason: Sore Throat Last Admin: 12/18/24 05:01 Dose: 1 lozenge Documented By: KARL Calcium Carbonate (Calcium Carbonate 750 Mg Tab.Chew) 750 mg PO Q4H PRN PRN Reason: Heartburn Ceftriaxone Sodium (Ceftriaxone Sodium 1 Gm Vial) 1 gm IVPUSH DAILY [facility] Last Admin: 12/18/24 08:40 Dose: 1 gm Documented By: AGUSTIN Dextrose (Dextrose 50 % 25 Gm/50 Ml Syringe) 25 gm IVPUSH Q15M PRN; Protocol PRN Reason: per Hypoglycemia Standing Ord. Dextrose (Dextrose 50 % 25 Gm/50 Ml Syringe) 25 gm IVPUSH Q15M PRN; Protocol PRN Reason: per Hypoglycemia Standing Ord. Enoxaparin Sodium (Enoxaparin Sodium 40 Mg/0.4 Ml Syringe) 40 mg SUBCUT Q24H [facility] Last Admin: 12/18/24 12:24 Dose: 40 mg Documented By: AGUSTIN Fluticasone/Vilanterol (Fluticasone/Vilanterol 200/25 Blst.W.Dev) 1 puff INHALE RDAILY [facility] Last Admin: 12/18/24 11:20 Dose: 1 puff Documented By: KEN Glucose (Glucose Gel 15 Gm Gel..Gram.) 15 gm PO Q15M PRN; Protocol PRN Reason: per Hypoglycemia Standing Ord. Glucose (Glucose Gel 15 Gm Gel..Gram.) 15 gm PO Q15M PRN; Protocol PRN Reason: per Hypoglycemia Standing Ord. Azithromycin 500 mg/ Sodium (Chloride) 250 mls @ 125 mls/hr IV DAILY [facility] Last Infusion: 12/18/24 10:51 Dose: Infused Documented By: AGUSTIN Lactated Ringer's (Lr) 1,000 mls @ 80 mls/hr IVCONT .[id number] [facility] Last Admin: 12/19/24 00:50 Dose: 80 mls/hr Documented By: KASSANDRA Insulin Human Lispro (Insulin Lispro 100 Unit/Ml 3 Ml Vial) 0 unit SUBCUT QIDACHS [facility]; Protocol Last Admin: 12/18/24 22:26 Dose: Not Given Documented By: KASSANDRA Non-Admin Reason: No Insulin Coverage Levothyroxine Sodium (Levothyroxine Sodium 50 Mcg Tablet) 50 mcg PO DAILY@0600 [facility] Last Admin: 12/19/24 06:57 Dose: Not Given Documented By: KASSANDRA Non-Admin Reason: Patient Refused Loperamide HCl (Loperamide Hcl 2 Mg Capsule) 2 mg PO DAILY PRN PRN Reason: Loose Stool Loratadine (Loratadine 10 Mg Tablet) 10 mg PO DAILY PRN PRN Reason: Post Nasal Drip Magnesium Hydroxide (Milk Of Magnesia 30 Ml Oral.Susp) 30 ml PO DAILY PRN PRN Reason: Constipation Melatonin (Melatonin 3 Mg Tablet) 6 mg PO BEDTIME PRN PRN Reason: Insomnia Melatonin (Melatonin 3 Mg Tablet) 3 mg PO BEDTIME [facility] Last Admin: 12/18/24 21:25 Dose: 3 mg Documented By: AKSSANDRA Mirtazapine (Mirtazapine 7.5 Mg Tablet) 7.5 mg PO BEDTIME [facility] Last Admin: 12/18/24 21:25 Dose: 7.5 mg Documented By: KASSANDRA Omeprazole (Omeprazole 20 Mg Capsule.Dr) 20 mg PO DAILY@0630 [facility] Last Admin: 12/19/24 06:57 Dose: Not Given Documented By: KASSANDRA Non-Admin Reason: Patient Refused Quetiapine Fumarate (Quetiapine Fumarate 400 Mg Tablet) 400 mg PO BEDTIME [facility] Last Admin: 12/18/24 21:25 Dose: 400 mg Documented By: KASSANDRA Risperidone (Risperidone 2 Mg Tablet) 2 mg PO BEDTIME [facility] Last Admin: 12/18/24 21:25 Dose: 2 mg Documented By: KASSANDRA Risperidone (Risperidone 1 Mg Tablet) 1 mg PO DAILY [facility] Last Admin: 12/18/24 08:40 Dose: 1 mg Documented By: AGUSTIN Ropinirole HCl (Ropinirole Hcl 0.25 Mg Tablet) 0.25 mg PO DAILY [facility] Last Admin: 12/18/24 08:40 Dose: 0.25 mg Documented By: AGUSTIN Sodium Chloride (0.9 % Sodium Chloride Flush 3 Ml Syringe) 3 ml IVFLUSH QSHIFT [facility] Last Admin: 12/18/24 23:23 Dose: Not Given Documented By: KASSANDRA Non-Admin Reason: IV Running Labs 10/09/25 05:39 12/19/24 05:39 Labs: Laboratory Results - last 24 hr 12/18/24 12/18/24 12/18/24 11:14 15:43 20:07 Hold Purple Top POC Glucose 134 H 151 H 129 H NT-Pro-B Natriuret Pep 12/19/24 05:39 Hold Purple Top SEE NOTE POC Glucose NT-Pro-B Natriuret Pep 2949.3 H Microbiology Microbiology Results: Microbiology 12/17/24 08:52 Blood Culture - Preliminary Blood - Venous No growth after 24 hours. 12/17/24 08:42 Blood Culture - Preliminary Blood - Venous No growth after 24 hours. Assessment and Plan (1) Pneumonia: Status: Acute (2) COPD (chronic obstructive pulmonary disease): Status: Acute Plan 59/F withIBS, HLD, OCD, COPD, hypothyroidism, PTSD, schizoaffective disorder, and recent UTI presented from SNF with AMS, hypoxia (86% on RA), and work up has revealed PNA. 12/19 AM, increased wob, tachycardic, BNP 3000 and O2 in 80s Acute hypoxic respiratory failure in setting of PNA, more hypoxic this morning with highly component of CHF Continue Ceftriaxone and Azithrom started 12/17 Cultures thus far negative. Adjust O2 as needed to maintain sat of 94 or better check ABG transfer to higher level of care (Med-tele) CHF--NOS, IV Lasix check Echo may consider cardiac consult dependent on pt progress Metabolic encephalopathy, related to above, neg CT Head and UTI excluded Schizoaffective disorder, anxiety home meds Diabetes: SSI diabetic diet BS check COPD, no acute exacerbation at this time inhalers PRN --xopenex if needed in light of tachcyardia HLD; resume rousuvastatin once med rec done. Diet: low card cardiac diet DVT px: lovenox sc Full code Dispo: Transfer to [facility] Quality Stroke Does the patient have a stroke diagnosis?: No VTE Prior VTE?: No VTE Risk Level:: Medical - moderate - high VTE Device Contraindication: N/A - Device Ordered VTE Drug Contraindication: N/A - Med Ordered
[2024-12-19 07:44] LABS: MANUAL DIFF FLAG NO
[2024-12-19 07:47] LABS: ABG HCO3 16 mmol/L (22-26); ABG O2 % Saturation 100.0 %
[2024-12-19 07:48] LABS: Glucose, Whole Blood 133 mg/dL (60-115)
--- NOTE | 2024-12-19 07:48 | PC.NURSE ---
Received AM report from PM nurse and went to check on patient. Patient was on 15L non-rebreather and satting 97%. Patient reported she needed to use the bathroom and refused the bedpan. Because of her behavioral history patient proceeded to get up out of bed to commode despite repeatedly asking her to not get up and to use bedpan. Once up to commode patient did urinate but desatted down to 67% with difficulty getting sats back up with non-rebreather. Respiratory was called and came to bedside. Patient refused to sit still to get her O2 sat back up and continued trying to get up and back to bed. 2 people assisted her back into bed and respiratory started treatments. MD came to bedside and ordered an EKG and stat 40mg IV lasix. [place] [facility] [place] and continued monitoring with [id number]/ high flow.
[2024-12-19 07:50] LABS: Hematocrit 30.2 % (37.0-47.0); Hemoglobin 10.5 g/dl (12.0-16.0); Imm Gran Abs Auto 0.10 X10*3/uL (0.00-0.03); Imm Gran Pct Auto 0.7 % (0.0-0.4); Lymphocytes Absolute Auto 1.0 X10*3/uL (1.2-4.9); Mean Corpuscular HGB Conc 34.8 g/dl (31.0-35.0); Mean Corpuscular Hemoglobin 23.5 pg (27.0-33.0); Mean Corpuscular Volume 67.6 fL (80.0-98.0); NRBC Abs Auto 0.000 X10*3/uL (0.0-0.012); NRBC Pct Auto 0.0 /100WBC (0.0-0.2); Platelet Count 336 X10*3/uL (160-400); Red Blood Count 4.47 X10*6/uL (4.20-5.50); White Blood Count 14.0 X10*3/uL (4.8-10.8)
[2024-12-19 08:03] LABS: Alanine Aminotransferase 72 U/L (0-31); Albumin Level 3.2 g/dL (3.5-5.0); Alkaline Phosphatase 199 U/L (39-117); Anion Gap 15 (12-20); Aspartate Amino Transferase 44 U/L (5-31); Blood Urea Nitrogen 10 mg/dL (9-16); Calcium 9.2 mg/dL (8.4-10.2); Carbon Dioxide 19 mmol/L (22-29); Chloride 110 mmol/L (96-108); Creatinine Clr Calc Pharmacy 74.9; Estimated Glomerular Filt Rate > 60; Potassium 3.3 mmol/L (3.3-5.1); Sodium 141 mmol/L (135-145); Total Protein 6.2 g/dL (6.5-8.0)
--- NOTE | 2024-12-19 08:22 | PC.RT ---
RT called due to low sats . pt on a 1005 nrb. RT assessed and lips cyanotic [id number]. Dr. Palacios/RN aware. Will place on HFNC and transfer to [facility].
[2024-12-19 09:01] LABS: Glucose, Whole Blood 153 mg/dL (60-115)
[2024-12-19 09:30] LABS: Troponin-I High Sensitivity 8.6 ng/L (<3.5-17.0)
[2024-12-19] MEDS: diazePAM 10 MG/2 ML CARTRIDGE 2.5 MG IVPUSH (09:55)
[2024-12-19] MEDS: 0.9 % Sodium Chloride Flush 3 ML SYRINGE IVFLUSH ×2 (09:56→14:49)
[2024-12-19 11:16] LABS: Glucose, Whole Blood 206 mg/dL (60-115)
[2024-12-19] MEDS: diazePAM 10 MG/2 ML CARTRIDGE 5 MG IVPUSH (14:49)
--- NOTE | 2024-12-19 14:54 | PM.CNPUL ---
History of Present Illness History of Present Illness Consult date: 12/19/24 Chief complaint: Hypoxia Narrative: 59-year-old lady with underlying COPD, hypothyroidism, schizoaffective disorder admitted on 12/17/2024 with alteration in mental status and hypoxia patient was empirically treated with broad-spectrum antibiotics and IV fluid resuscitation with sepsis. Her hospital course is significant for worsening hypoxemia now requiring high-flow nasal cannula. Her chest x-ray shows bilateral edema. Patient was not able to tolerate CT chest yet, but on lung cuts of CT abdomen peribronchovascular infiltrates are noted. Review of Systems Constitutional: Constitutional: Denies daytime sleepiness, Denies excessive sweating, Denies fatigue, Denies fever(s), Denies lethargy, Denies malaise, Denies night sweats, Denies snoring and Denies weight loss Eyes: Eyes: Denies blurry vision and Denies itchy eyes ENT: Denies nasal congestion, Denies post nasal drip, Denies sinus pain, Denies sinus pressure and Denies other ( Thrush) Cardiovascular: Cardiovascular: Denies chest pain, Denies pedal edema, Reports dyspnea, Reports dyspnea on exertion, Denies orthopnea and Denies paroxysmal nocturnal dyspnea Respiratory: Respiratory: Denies cough, Denies hemoptysis, Denies excessive phlegm production, Reports dyspnea, Reports dyspnea on exertion, Denies snoring and Denies wheezing Gastrointestinal: Gastrointestinal: Denies abdominal pain and Denies heartburn Musculoskeletal: Musculoskeletal: Denies myalgias, Denies arthralgias and Denies joint swelling Integumentary/Breasts: Skin/Breast: Denies rash Neurologic: Denies memory loss and Denies seizure-like activity Psychiatric: Psychiatric: Denies abnormal sleep pattern, Denies anxiety and Denies memory loss Endocrine: Endocrine: Denies excessive sweating, Denies fatigue and Denies heat intolerance Hematologic/Lymphatic: Hematologic/Lymphatic: Denies easy bruising Allergic/Immunologic: Allergic/Immunologic: Denies itchy eyes, Denies seasonal rhinorrhea and Denies wheezing PMFSH Past Medical History Medical History (Updated 12/19/24 @ 15:01 by Mike Smith MD) COPD (chronic obstructive pulmonary disease) Anxiety Hypothyroidism HLD (hyperlipidemia) UTI (urinary tract infection) PTSD (post-traumatic stress disorder) Diabetes Schizoaffective disorder Social History Social History (Updated 12/17/24 @ 08:26 by Tia Blake DO) Household Members: None Housing: Apartment Do you presently have visiting nurse or other home services: Yes Patient Tobacco Use Status: Current everyday Tobacco user Tobacco use type: Cigarette service: No Meds Allergies Allergy/AdvReac Type Severity Reaction Status Date / Time celecoxib Allergy Unknown Verified 12/17/24 08:10 fish derived (fish) Allergy Unknown Verified 12/17/24 08:10 gabapentin Allergy Unknown Verified 12/17/24 08:10 guanfacine Allergy Unknown Verified 12/17/24 08:10 ibuprofen Allergy Unknown Verified 12/17/24 08:10 olanzapine Allergy Unknown Verified 12/17/24 08:10 Penicillins Allergy Unknown Verified 12/17/24 08:10 prazosin Allergy Unknown Verified 12/17/24 08:10 Active Medications: Current Medications Acetaminophen (Acetaminophen 325 Mg Tablet) 650 mg PO Q6H PRN PRN Reason: Pain, Mild 1-3,fever,headache Last Admin: 12/19/24 10:05 Dose: 650 mg Albuterol/Ipratropium (Albuterol/Iprat 2.5/0.5mg 3 Ml Ampul.Neb) 3 ml INHALE RQ4H WHILE AWAKE [facility] Last Admin: 12/19/24 11:24 Dose: 3 ml Albuterol/Ipratropium (Albuterol/Iprat 2.5/0.5mg 3 Ml Ampul.Neb) 3 ml INHALE RQ4H WHILE AWAKE PRN PRN Reason: Shortness of Breath Ascorbic Acid (Ascorbic Acid 500 Mg Tablet) 500 mg PO DAILY [facility] Last Admin: 12/19/24 09:56 Dose: 500 mg Atorvastatin Calcium (Atorvastatin Calcium 40 Mg Tablet) 40 mg PO DAILY [facility] Last Admin: 12/19/24 09:56 Dose: 40 mg Benzocaine (Throat Lozenge, Medicated Lozenge) 1 lozenge MUCOUS MEM Q2H PRN PRN Reason: Sore Throat Last Admin: 12/18/24 05:01 Dose: 1 lozenge Calcium Carbonate (Calcium Carbonate 750 Mg Tab.Chew) 750 mg PO Q4H PRN PRN Reason: Heartburn Ceftriaxone Sodium (Ceftriaxone Sodium 1 Gm Vial) 1 gm IVPUSH DAILY [facility] Last Admin: 12/19/24 09:56 Dose: 1 gm Dextrose (Dextrose 50 % 25 Gm/50 Ml Syringe) 25 gm IVPUSH Q15M PRN; Protocol PRN Reason: per Hypoglycemia Standing Ord. Dextrose (Dextrose 50 % 25 Gm/50 Ml Syringe) 25 gm IVPUSH Q15M PRN; Protocol PRN Reason: per Hypoglycemia Standing Ord. Enoxaparin Sodium (Enoxaparin Sodium 40 Mg/0.4 Ml Syringe) 40 mg SUBCUT Q24H [facility] Last Admin: 12/19/24 12:47 Dose: 40 mg Fluticasone/Vilanterol (Fluticasone/Vilanterol 200/25 Blst.W.Dev) 1 puff INHALE RDAILY [facility] Last Admin: 12/19/24 07:59 Dose: Not Given Glucose (Glucose Gel 15 Gm Gel..Gram.) 15 gm PO Q15M PRN; Protocol PRN Reason: per Hypoglycemia Standing Ord. Glucose (Glucose Gel 15 Gm Gel..Gram.) 15 gm PO Q15M PRN; Protocol PRN Reason: per Hypoglycemia Standing Ord. Azithromycin 500 mg/ Sodium (Chloride) 250 mls @ 125 mls/hr IV DAILY [facility] Last Infusion: 12/19/24 12:17 Dose: Infused Vancomycin HCl 1,000 mg/Vancomycin HCl 750 mg/ Sodium Chloride 535 mls @ 267.5 mls/hr IV ONCE ONE Stop: 12/19/24 16:59 Insulin Human Lispro (Insulin Lispro 100 Unit/Ml 3 Ml Vial) 0 unit SUBCUT QIDACHS [facility]; Protocol Last Admin: 12/19/24 12:47 Dose: 4 unit Levothyroxine Sodium (Levothyroxine Sodium 50 Mcg Tablet) 50 mcg PO DAILY@0600 [facility] Last Admin: 12/19/24 06:57 Dose: Not Given Loperamide HCl (Loperamide Hcl 2 Mg Capsule) 2 mg PO DAILY PRN PRN Reason: Loose Stool Loratadine (Loratadine 10 Mg Tablet) 10 mg PO DAILY PRN PRN Reason: Post Nasal Drip Magnesium Hydroxide (Milk Of Magnesia 30 Ml Oral.Susp) 30 ml PO DAILY PRN PRN Reason: Constipation Melatonin (Melatonin 3 Mg Tablet) 6 mg PO BEDTIME PRN PRN Reason: Insomnia Melatonin (Melatonin 3 Mg Tablet) 3 mg PO BEDTIME [facility] Last Admin: 12/18/24 21:25 Dose: 3 mg Mirtazapine (Mirtazapine 7.5 Mg Tablet) 7.5 mg PO BEDTIME [facility] Last Admin: 12/18/24 21:25 Dose: 7.5 mg Omeprazole (Omeprazole 20 Mg Capsule.Dr) 20 mg PO DAILY@0630 [facility] Last Admin: 12/19/24 06:57 Dose: Not Given Pharmacy Consult (Consult Rx Vancomycin Dosing) 1 each MISCELLANE DAILY PRN PRN Reason: Consult order Quetiapine Fumarate (Quetiapine Fumarate 400 Mg Tablet) 400 mg PO BEDTIME [facility] Last Admin: 12/18/24 21:25 Dose: 400 mg Risperidone (Risperidone 2 Mg Tablet) 2 mg PO BEDTIME [facility] Last Admin: 12/18/24 21:25 Dose: 2 mg Risperidone (Risperidone 1 Mg Tablet) 1 mg PO DAILY [facility] Last Admin: 12/19/24 09:56 Dose: 1 mg Ropinirole HCl (Ropinirole Hcl 0.25 Mg Tablet) 0.25 mg PO DAILY [facility] Last Admin: 12/19/24 09:56 Dose: 0.25 mg Sodium Chloride (0.9 % Sodium Chloride Flush 3 Ml Syringe) 3 ml IVFLUSH QSHIFT [facility] Last Admin: 12/19/24 14:49 Dose: 3 ml Home Medications ?Medication ?Instructions ?Recorded ?Confirmed ?Last Taken ?Type acetaminophen 325 mg tablet 650 mg PO Q6H PRN Fever/Pain 12/17/24 12/17/24 Unknown History albuterol sulfate 90 mcg/actuation 1 puff inhalation Q4H PRN 12/17/24 12/17/24 Unknown History aerosol inhaler Shortness Of Breath Or Wheezing ascorbic acid (vitamin C) 500 mg 500 mg PO DAILY 12/17/24 12/17/24 Unknown History tablet benzocaine 15 mg-menthol 3.6 mg 1 kemi mucous membrane Q2H PRN Sore 12/17/24 12/17/24 Unknown History lozenges (Cepacol Sore Throat Throat (benzocaine-menthol)) calcium carbonate (Tums E-X) 600 mg PO Q4H PRN Acid Reflux 12/17/24 12/17/24 Unknown History cholecalciferol (vitamin D3) 25 25 mcg PO DAILY 12/17/24 12/17/24 Unknown History mcg (1,000 unit) tablet (Vitamin D3) cyclobenzaprine 10 mg tablet 10 mg PO DAILY PRN Sciatica 12/17/24 12/17/24 Unknown History diphenhydramine HCl 25 mg tablet 25 mg PO Q8H PRN Allergy Symptoms 12/17/24 12/17/24 Unknown History (Benadryl Allergy) ferrous sulfate 325 mg (65 mg 325 mg PO DAILY 12/17/24 12/17/24 Unknown History iron) tablet fluticasone 250 mcg-salmeterol 50 1 inh inhalation BID 12/17/24 12/17/24 Unknown History mcg/dose blistr powdr for inhalation (Advair Diskus) fluticasone furoate 100 1 inh inhalation DAILY 12/17/24 12/17/24 Unknown History mcg-vilanterol 25 mcg/dose inhalation powder (Breo Ellipta) glucagon HCl 1 mg solution for 1 mg subcut Q15M PRN Hypoglycemia 12/17/24 12/17/24 Unknown History injection (Glucagon (HCl) Emergency Kit) hydroxyzine HCl 25 mg tablet 25 mg PO DAILY 12/17/24 12/17/24 Unknown History hydroxyzine HCl 50 mg tablet 50 mg PO DAILY 12/17/24 12/17/24 Unknown History hydroxyzine HCl 50 mg tablet 100 mg PO BID 12/17/24 12/17/24 Unknown History insulin lispro 100 unit/mL See Protocol subcut TUTHSA 12/17/24 12/17/24 Unknown History subcutaneous solution (Humalog U-100 Insulin) levothyroxine 50 mcg tablet 50 mcg PO DAILY@0600 12/17/24 12/17/24 Unknown History lidocaine 4 % topical patch 1 patch topical DAILY 12/17/24 12/17/24 Unknown History lidocaine HCl 2 % mucosal solution 15 ml mucous membrane Q6H PRN Gum 12/17/24 12/17/24 Unknown History (Lidocaine Viscous) Pain/Oral Ulcers loperamide 2 mg tablet 2 mg PO DAILY PRN Loose Stool 12/17/24 12/17/24 Unknown History loratadine 10 mg tablet 10 mg PO DAILY PRN Post Nasal Drip 12/17/24 12/17/24 Unknown History melatonin 1 mg tablet 1 mg PO BEDTIME 12/17/24 12/17/24 Unknown History melatonin 3 mg tablet 3 mg PO BEDTIME 12/17/24 12/17/24 Unknown History metformin 1,000 mg tablet 1,000 mg PO BID 12/17/24 12/17/24 Unknown History mirtazapine 15 mg tablet 7.5 mg PO BEDTIME 12/17/24 12/17/24 Unknown History naloxone 4 mg/actuation nasal 1 spray intranasal Q3M PRN Opioid 12/17/24 12/17/24 Unknown History spray (Narcan) Overdose nystatin 100,000 unit/gram topical 1 appl topical TID 12/17/24 12/17/24 Unknown History powder ondansetron HCl 4 mg tablet 4 mg PO Q6H PRN Nausea And Vomiting 12/17/24 12/17/24 Unknown History pantoprazole 40 mg tablet,delayed 40 mg PO DAILY@0630 12/17/24 12/17/24 Unknown History release polyethylene glycol 3350 17 17 g PO DAILY 12/17/24 12/17/24 Unknown History gram/dose oral powder (Miralax) quetiapine 400 mg tablet (Seroquel) 400 mg PO BEDTIME 12/17/24 12/17/24 Unknown History risperidone 1 mg tablet 1 mg PO DAILY 12/17/24 12/17/24 Unknown History risperidone 2 mg tablet (Risperdal) 2 mg PO BEDTIME 12/17/24 12/17/24 Unknown History ropinirole 0.25 mg tablet 0.25 mg PO DAILY 12/17/24 12/17/24 Unknown History rosuvastatin 10 mg tablet 10 mg PO BEDTIME 12/17/24 12/17/24 Unknown History sennosides 8.6 mg tablet (senna) 8.6 mg PO DAILY PRN Constipation 12/17/24 12/17/24 Unknown History sitagliptin phosphate 50 mg tablet 50 mg PO DAILY 12/17/24 12/17/24 Unknown History (Januvia) sodium phosphates 19 gram-7 118 ml [place] DAILY PRN Constipation 12/17/24 12/17/24 Unknown History gram/118 mL enema (Fleet Enema) tramadol 50 mg tablet 50 mg PO TID 12/17/24 12/17/24 Unknown History trazodone 100 mg tablet 100 mg PO BEDTIME 12/17/24 12/17/24 Unknown History triamcinolone acetonide 55 mcg 2 spray intranasal DAILY 12/17/24 12/17/24 Unknown History nasal spray aerosol (Nasacort) Physical Exam Vital Signs: Vital Signs: Last Vital Signs Temp 97.4 F 12/19/24 11:58 Pulse 128 H 12/19/24 11:58 Resp 20 12/19/24 11:58 BP 110/62 12/19/24 11:58 Pulse Ox 98 12/19/24 11:58 O2 Del Method High Flow Nasal C annula 12/19/24 11:58 O2 Flow Rate 50 12/19/24 11:58 FiO2 50 12/19/24 11:58 BMI result Body Mass Index 26.6 Const: General: no acute distress and alert Nutritional Appearance: not obese Orientation/consciousness: Other orientation findings ( oriented) HEENT: Head: Yes atraumatic Eyes: General: appearance normal, both eyes and all related structures Sclerae: sclerae normal EOM: EOMs intact bilaterally Neck: Neck: Yes supple Lymphatic: no lymphadenopathy noted Resp: Effort & Inspection: normal respiratory effort and no use of accessory muscles Auscultation: crackles (Diffuse bilateral) Cardio: Rate: tachycardic Rhythm: regular rhythm Heart sounds: no gallops, no murmurs and no rubs GI: Palpation (GI): Soft to palpation and Other GI palpation findings present ( Nontender) Auscultation: normal bowel sounds Skin: General skin exam: other ( warm) Extrem: General: No clubbing, No cyanosis and Yes edema (Trace bilateral) Results Laboratory Findings 12/19/24 05:39 12/19/24 05:39 Abnormal lab findings: Abnormal Labs 12/17/24 12/17/24 12/17/24 08:43 08:49 09:51 WBC 11.9 H Hgb 11.5 L Hct 33.7 L MCV 69.1 L MCH 23.6 L MPV 8.9 L Immature Gran % (Auto) 0.6 H Neut % (Auto) 79.1 H Lymph % (Auto) 8.8 L Lymph # (Auto) 1.1 L Abs Immat Gran (auto) 0.07 H Absolute Neuts (auto) 9.4 H ABG pH at Pt Temp ABG pCO2 at Pt Temp ABG pO2 at Pt Temp ABG HCO3 VBG HCO3 18 L Chloride 111 H Carbon Dioxide 18 L BUN 20 H POC Glucose Random Glucose 152 H Lactic Acid 2.1 H* Lactic Acid F/U @ 2Hr AST 127 H ALT 136 H Alkaline Phosphatase 118 H C-Reactive Protein 22.84 H NT-Pro-B Natriuret Pep Total Protein Albumin Urine Protein 30 (1+) H Ur Leukocyte Esterase Trace H 12/17/24 12/17/24 12/17/24 11:27 18:43 21:25 WBC Hgb Hct MCV MCH MPV Immature Gran % (Auto) Neut % (Auto) Lymph % (Auto) Lymph # (Auto) Abs Immat Gran (auto) Absolute Neuts (auto) ABG pH at Pt Temp ABG pCO2 at Pt Temp ABG pO2 at Pt Temp ABG HCO3 VBG HCO3 Chloride Carbon Dioxide BUN POC Glucose 155 H 156 H Random Glucose Lactic Acid Lactic Acid F/U @ 2Hr 2.5 H* AST ALT Alkaline Phosphatase C-Reactive Protein NT-Pro-B Natriuret Pep Total Protein Albumin Urine Protein Ur Leukocyte Esterase 12/18/24 12/18/24 12/18/24 03:50 11:14 15:43 WBC 12.3 H Hgb 10.0 L Hct 29.6 L MCV 69.0 L MCH 23.3 L MPV Immature Gran % (Auto) Neut % (Auto) Lymph % (Auto) Lymph # (Auto) Abs Immat Gran (auto) Absolute Neuts (auto) ABG pH at Pt Temp ABG pCO2 at Pt Temp ABG pO2 at Pt Temp ABG HCO3 VBG HCO3 Chloride Carbon Dioxide BUN POC Glucose 134 H 151 H Random Glucose Lactic Acid Lactic Acid F/U @ 2Hr AST ALT Alkaline Phosphatase C-Reactive Protein NT-Pro-B Natriuret Pep Total Protein Albumin Urine Protein Ur Leukocyte Esterase 12/18/24 12/19/24 12/19/24 20:07 05:39 07:42 WBC 14.0 H Hgb 10.5 L Hct 30.2 L MCV 67.6 L MCH 23.5 L MPV Immature Gran % (Auto) 0.7 H Neut % (Auto) 84.2 H Lymph % (Auto) 7.4 L Lymph # (Auto) 1.0 L Abs Immat Gran (auto) 0.10 H Absolute Neuts (auto) 11.8 H ABG pH at Pt Temp ABG pCO2 at Pt Temp ABG pO2 at Pt Temp ABG HCO3 VBG HCO3 Chloride 110 H Carbon Dioxide 19 L BUN POC Glucose 129 H 133 H Random Glucose 122 H Lactic Acid Lactic Acid F/U @ 2Hr AST 44 H ALT 72 H Alkaline Phosphatase 199 H C-Reactive Protein NT-Pro-B Natriuret Pep 2949.3 H Total Protein 6.2 L Albumin 3.2 L Urine Protein Ur Leukocyte Esterase 12/19/24 12/19/24 12/19/24 07:43 08:57 11:12 WBC Hgb Hct MCV MCH MPV Immature Gran % (Auto) Neut % (Auto) Lymph % (Auto) Lymph # (Auto) Abs Immat Gran (auto) Absolute Neuts (auto) ABG pH at Pt Temp 7.47 H ABG pCO2 at Pt Temp 21 L ABG pO2 at Pt Temp 121 H ABG HCO3 16 L VBG HCO3 Chloride Carbon Dioxide BUN POC Glucose 153 H 206 H Random Glucose Lactic Acid Lactic Acid F/U @ 2Hr AST ALT Alkaline Phosphatase C-Reactive Protein NT-Pro-B Natriuret Pep Total Protein Albumin Urine Protein Ur Leukocyte Esterase Microbiology: Microbiology 12/17/24 08:52 Blood - Venous Blood Culture - Preliminary No growth after 48 hours. 12/17/24 08:42 Blood - Venous Blood Culture - Preliminary No growth after 48 hours. Assessment and Plan (1) Acute respiratory failure with hypoxia: Status: Acute (2) COPD (chronic obstructive pulmonary disease): Status: Acute Plan Impression: 59-year-old lady with underlying COPD and schizoaffective disorder admitted with signs of sepsis and hypoxia and treated with empiric broad-spectrum antibiotics and IV fluid resuscitation for suspicion of pneumonia. He chest x-rays are suggestive of pulmonary edema. Patient was not able to CT angio chest yet. She does have elevated BNP and decreased MCV. Recommendation: Agree with empiric antibiotics. Suggests CT angio chest to further evaluate lung parenchyma and ask culture. Would consider checking iron studies. Would consider additional diuresis with albumin supplementation. Procedures Date of Service Date of Service: 12/19/24
[2024-12-19] MEDS: Albumin Human 25 % 100 ML 133.33 ML IV ×2 (15:38→22:57)
[2024-12-19 16:26] LABS: Glucose, Whole Blood 166 mg/dL (60-115)
[2024-12-19 16:39] LABS: Iron 40 mcg/dL (30-160); Percent Iron Saturation 27 % (15-50); Total Iron Binding Capacity 147 mcg/dL (228-428); Unsaturated Iron Binding 107 ug/dL
--- NOTE | 2024-12-19 16:41 | P.CONCA_ITS ---
History of Present Illness History of Present Illness Date of Service: 12/19/24 Requesting physician: [facility] Consult reason: other Chief complaint: Hypoxia Narrative: I was consulted to see Jennifer in cardiology consultation today for acute respiratory failure although I got involved urgently as patient had an echocardiogram at bedside which showed large pericardial effusion with early signs of cardiac tamponade. Echocardiogram was done as patient came in yesterday with shortness of breath and hypoxemia from a care [facility] facility. She has baseline history of psychiatric disorder as well as COPD. She came in and was noted to have lactic acidosis and tachycardia and findings suggestive of pneumonia and was admitted for treatment. She has been treated with antibiotic but overnight had decompensation with increasing requirement of oxygen donation and patient becoming combative. There was suggestion of heart failure by elevated BNP and further respiratory distress and she was given diuretic in the morning but without any improvement. She therefore underwent an echocardiogram with patient's persistently tachycardic with irregular heartbeat requiring high flow nasal cannula oxygen. Patient also visibly appears to be short of breath. No hemodynamic compromise has been noted. Echocardiogram shows lost circumferential pericardial effusion with suggestive of fibrinous strands with respiratory variation mitral and tricuspid inflows suggestive of tamponade physiology with IVC being collapsible most likely due to recent diuresis. Patient came in with some abdominal pain and chest pain currently not complaining of chest pain. I did suggest that she does have a large fluid collection around her heart and this needs to be drained. Patient was adamantly refuses and says she would rather . However there is a question about her competency. She has also been given Ativan so as we could perform an echocardiogram at bedside. Patient does have a guardian Review of Systems 2 Review of Systems: Yes Unobtainable due to mental status Neurologic: Reports confusion Psychiatric: Psychiatric: Reports confusion [facility] Past Medical History Medical History (Updated 12/19/24 @ 16:56 by Isauro Lea MD) COPD (chronic obstructive pulmonary disease) Anxiety Hypothyroidism HLD (hyperlipidemia) UTI (urinary tract infection) PTSD (post-traumatic stress disorder) Diabetes Schizoaffective disorder Social History Social History (Updated 12/17/24 @ 08:26 by Tia Blake DO) Household Members: None Housing: Apartment Do you presently have visiting nurse or other home services: Yes Patient Tobacco Use Status: Current everyday Tobacco user Tobacco use type: Cigarette service: No Meds Allergies Allergy/AdvReac Type Severity Reaction Status Date / Time celecoxib Allergy Unknown Verified 12/17/24 08:10 fish derived (fish) Allergy Unknown Verified 12/17/24 08:10 gabapentin Allergy Unknown Verified 12/17/24 08:10 guanfacine Allergy Unknown Verified 12/17/24 08:10 ibuprofen Allergy Unknown Verified 12/17/24 08:10 olanzapine Allergy Unknown Verified 12/17/24 08:10 Penicillins Allergy Unknown Verified 12/17/24 08:10 prazosin Allergy Unknown Verified 12/17/24 08:10 Active Medications: Current Medications Acetaminophen (Acetaminophen 325 Mg Tablet) 650 mg PO Q6H PRN PRN Reason: Pain, Mild 1-3,fever,headache Last Admin: 12/19/24 10:05 Dose: 650 mg Albuterol/Ipratropium (Albuterol/Iprat 2.5/0.5mg 3 Ml Ampul.Neb) 3 ml INHALE RQ4H WHILE AWAKE [facility] Last Admin: 12/19/24 15:28 Dose: 3 ml Albuterol/Ipratropium (Albuterol/Iprat 2.5/0.5mg 3 Ml Ampul.Neb) 3 ml INHALE RQ4H WHILE AWAKE PRN PRN Reason: Shortness of Breath Atorvastatin Calcium (Atorvastatin Calcium 40 Mg Tablet) 40 mg PO DAILY [facility] On Hold: 12/19/24 16:40 Last Admin: 12/19/24 09:56 Dose: 40 mg Benzocaine (Throat Lozenge, Medicated Lozenge) 1 lozenge MUCOUS MEM Q2H PRN PRN Reason: Sore Throat Last Admin: 12/18/24 05:01 Dose: 1 lozenge Ceftriaxone Sodium (Ceftriaxone Sodium 1 Gm Vial) 1 gm IVPUSH DAILY [facility] Last Admin: 12/19/24 09:56 Dose: 1 gm Dextrose (Dextrose 50 % 25 Gm/50 Ml Syringe) 25 gm IVPUSH Q15M PRN; Protocol PRN Reason: per Hypoglycemia Standing Ord. Dextrose (Dextrose 50 % 25 Gm/50 Ml Syringe) 25 gm IVPUSH Q15M PRN; Protocol PRN Reason: per Hypoglycemia Standing Ord. Enoxaparin Sodium (Enoxaparin Sodium 40 Mg/0.4 Ml Syringe) 40 mg SUBCUT Q24H [facility] Last Admin: 12/19/24 12:47 Dose: 40 mg Fluticasone/Vilanterol (Fluticasone/Vilanterol 200/25 Blst.W.Dev) 1 puff INHALE RDAILY [facility] Last Admin: 12/19/24 07:59 Dose: Not Given Glucose (Glucose Gel 15 Gm Gel..Gram.) 15 gm PO Q15M PRN; Protocol PRN Reason: per Hypoglycemia Standing Ord. Azithromycin 500 mg/ Sodium (Chloride) 250 mls @ 125 mls/hr IV DAILY [facility] Last Infusion: 12/19/24 12:17 Dose: Infused Vancomycin HCl 1,000 mg/Vancomycin HCl 750 mg/ Sodium Chloride 535 mls @ 267.5 mls/hr IV ONCE ONE Stop: 12/19/24 16:59 Albumin Human (Kedbumin 25 %) 100 mls @ 133.333 mls/hr IV Q1H [facility] Stop: 12/19/24 17:14 Last Admin: 12/19/24 15:38 Dose: 133.33 mls/hr Lactated Ringer's (Lr) 1,000 mls @ 150 mls/hr IVCONT .Q6H40M [facility] Insulin Human Lispro (Insulin Lispro 100 Unit/Ml 3 Ml Vial) 0 unit SUBCUT QIDACHS [facility]; Protocol Last Admin: 12/19/24 12:47 Dose: 4 unit Levothyroxine Sodium (Levothyroxine Sodium 50 Mcg Tablet) 50 mcg PO DAILY@0600 [facility] Last Admin: 12/19/24 06:57 Dose: Not Given Pharmacy Consult (Consult Rx Vancomycin Dosing) 1 each MISCELLANE DAILY PRN PRN Reason: Consult order Quetiapine Fumarate (Quetiapine Fumarate 400 Mg Tablet) 400 mg PO BEDTIME [facility] Last Admin: 12/18/24 21:25 Dose: 400 mg Risperidone (Risperidone 2 Mg Tablet) 2 mg PO BEDTIME [facility] Last Admin: 12/18/24 21:25 Dose: 2 mg Risperidone (Risperidone 1 Mg Tablet) 1 mg PO DAILY [facility] Last Admin: 12/19/24 09:56 Dose: 1 mg Ropinirole HCl (Ropinirole Hcl 0.25 Mg Tablet) 0.25 mg PO DAILY [facility] Last Admin: 12/19/24 09:56 Dose: 0.25 mg Sodium Chloride (0.9 % Sodium Chloride Flush 3 Ml Syringe) 3 ml IVFLUSH QSHIFT [facility] Last Admin: 12/19/24 14:49 Dose: 3 ml Home Medications ?Medication ?Instructions ?Recorded ?Confirmed ?Last Taken ?Type acetaminophen 325 mg tablet 650 mg PO Q6H PRN Fever/Pa in 12/17/24 12/17/24 Unknown History albuterol sulfate 90 mcg/actuation 1 puff inhalation Q 4H PRN 12/17/24 12/17/24 Unknown History aerosol inhaler Shortness Of Breath Or Wheez ing ascorbic acid (vitamin C) 500 mg 500 mg PO DAILY 12/1712/17/24 Unknown History tablet benzocaine 15 mg-menthol 3.6 mg 1 kemi mucous membrane Q2H PRN Sore 12/17/24 12/17/24 Unknown History lozenges (Cepacol Sore Throat Throat (benzocaine-menthol)) calcium carbonate (Tums E-X) 600 mg PO Q4H PRN Acid Re flux 12/17/24 12/17/24 Unknown History cholecalciferol (vitamin D3) 25 25 mcg PO DAILY 12/17/24 Unknown History mcg (1,000 unit) tablet (Vitamin D3) cyclobenzaprine 10 mg tablet 10 mg PO DAILY PRN Sciati ca 12/17/24 12/17/24 Unknown History diphenhydramine HCl 25 mg tablet 25 mg PO Q8H PRN German rgy Symptoms 12/17/24 12/17/24 Unknown History (Benadryl Allergy) ferrous sulfate 325 mg (65 mg 325 mg PO DAILY 12/17/24 12/17/24 Unknown History iron) tablet fluticasone 250 mcg-salmeterol 50 1 inh inhalation BID 12/17/24 12/17/24 Unknown History mcg/dose blistr powdr for inhalation (Advair Diskus) fluticasone furoate 100 1 inh inhalation DAILY 12/1712/17/24 Unknown History mcg-vilanterol 25 mcg/dose inhalation powder (Breo Ellipta) glucagon HCl 1 mg solution for 1 mg subcut Q15M PRN Hy poglycemia 12/17/24 12/17/24 Unknown History injection (Glucagon (HCl) Emergency Kit) hydroxyzine HCl 25 mg tablet 25 mg PO DAILY 12/17/24 1 Unknown History hydroxyzine HCl 50 mg tablet 50 mg PO DAILY 12/17/24 1 Unknown History hydroxyzine HCl 50 mg tablet 100 mg PO BID 12/17/24 Unknown History insulin lispro 100 unit/mL See Protocol subcut TUTHSA 12/17/24 12/17/24 Unknown History subcutaneous solution (Humalog U-100 Insulin) levothyroxine 50 mcg tablet 50 mcg PO DAILY@0600 12/1712/17/24 Unknown History lidocaine 4 % topical patch 1 patch topical DAILY 10/0412/17/24 Unknown History lidocaine HCl 2 % mucosal solution 15 ml mucous membra ne Q6H PRN Gum 12/17/24 12/17/24 Unknown History (Lidocaine Viscous) Pain/Oral Ulcers loperamide 2 mg tablet 2 mg PO DAILY PRN Loose Stoo l 12/17/24 12/17/24 Unknown History loratadine 10 mg tablet 10 mg PO DAILY PRN Post Nasa l Drip 12/17/24 12/17/24 Unknown History melatonin 1 mg tablet 1 mg PO BEDTIME 12/17/2410/04 Unknown History melatonin 3 mg tablet 3 mg PO BEDTIME 12/17/2410/04 Unknown History metformin 1,000 mg tablet 1,000 mg PO BID 12/17/2410/04 Unknown History mirtazapine 15 mg tablet 7.5 mg PO BEDTIME 12/17/24 1 Unknown History naloxone 4 mg/actuation nasal 1 spray intranasal Q3M P RN Opioid 12/17/24 12/17/24 Unknown History spray (Narcan) Overdose nystatin 100,000 unit/gram topical 1 appl topical TID 12/17/24 12/17/24 Unknown History powder ondansetron HCl 4 mg tablet 4 mg PO Q6H PRN Nausea And Vomiting 12/17/24 12/17/24 Unknown History pantoprazole 40 mg tablet,delayed 40 mg PO DAILY@0630 12/17/24 12/17/24 Unknown History release polyethylene glycol 3350 17 17 g PO DAILY 12/17/2410/04 Unknown History gram/dose oral powder (Miralax) quetiapine 400 mg tablet (Seroquel) 400 mg PO BEDTIME 12/17/24 12/17/24 Unknown History risperidone 1 mg tablet 1 mg PO DAILY 12/17/2412/17 Unknown History risperidone 2 mg tablet (Risperdal) 2 mg PO BEDTIME 12/17/24 Unknown History ropinirole 0.25 mg tablet 0.25 mg PO DAILY 12/17/24 Unknown History rosuvastatin 10 mg tablet 10 mg PO BEDTIME 12/17/24 Unknown History sennosides 8.6 mg tablet (senna) 8.6 mg PO DAILY PRN C onstipation 12/17/24 12/17/24 Unknown History sitagliptin phosphate 50 mg tablet 50 mg PO DAILY 10/0412/17/24 Unknown History (Januvia) sodium phosphates 19 gram-7 118 ml [place] DAILY PRN Consti pation 12/17/24 12/17/24 Unknown History gram/118 mL enema (Fleet Enema) tramadol 50 mg tablet 50 mg PO TID 12/17/24 Unknown History trazodone 100 mg tablet 100 mg PO BEDTIME 12/17/24 1 Unknown History triamcinolone acetonide 55 mcg 2 spray intranasal MERVAT Y 12/17/24 12/17/24 Unknown History nasal spray aerosol (Nasacort) Physical Exam 2 Vital Signs: Vital Signs: Last Vital Signs Temp 97.6 F 12/19/24 15:37 Pulse 122 H 12/19/24 15:37 Resp 20 12/19/24 15:37 BP 131/70 12/19/24 15:37 Pulse Ox 92 12/19/24 15:37 O2 Del Method High Flow Nasal C annula 12/19/24 15:37 O2 Flow Rate 40 12/19/24 15:37 FiO2 50 12/19/24 15:37 BMI result Body Mass Index 26.6 Const: General: alert, awake, in distress moderate and respiratory and confusion Nutritional Appearance: average body habitus O rientation/consciousness: confusion HEENT: Head: Yes normocephalic and Yes atraumatic Neck: Neck: Yes trachea midline, Yes supple and Yes other (Kussmaul sign) Resp: Effort & Inspection: decreased respiratory effort Auscultation: no rhonchi, no wheezes and diminished lung sounds Cardio: Jugular venous distension: other (Kussmauls's sign) Rate: t achycardic Rhythm: abnormal rhythm with ectopic beats Heart sounds: S1 normal heart sound present, S2 normal heart sound present, no click, no gallops and no murmurs GI: Auscultation: normal bowel sounds Skin: General skin exam: no rashes or lesions noted and ecchymosis Neuro: General: moves all extremities and confusion Extrem: General: Yes no clubbing, cyanosis or edema Objective Labs and Meds 12/19/24 05:39 12/19/24 05:39 Lab results: Laboratory Results - last 24 hr 12/18/24 12/19/24 12/19/24 20:07 05:39 07:42 WBC 14.0 H RBC 4.47 Hgb 10.5 L Hct 30.2 L MCV 67.6 L MCH 23.5 L MCHC 34.8 RDW 15.6 Plt Count 336 D MPV 10.0 Immature Gran % (Auto) 0.7 H Neut % (Auto) 84.2 H Lymph % (Auto) 7.4 L [place] % (Auto) 6.4 Eos % (Auto) 0.9 Baso % (Auto) 0.4 Lymph # (Auto) 1.0 L [place] # (Auto) 0.9 Eos # (Auto) 0.1 Baso # (Auto) 0.1 Abs Immat Gran (auto) 0.10 H Absolute Neuts (auto) 11.8 H Absolute Nucleated RBC 0.000 Nucleated RBC % (auto) 0.0 Hold Purple Top SEE NOTE O2 Saturation ABG pH at Pt Temp ABG pCO2 at Pt Temp ABG pO2 at Pt Temp ABG HCO3 ABG Base Excess (Actual) Sodium 141 Potassium 3.3 Chloride 110 H Carbon Dioxide 19 L Anion Gap 15 BUN 10 Creatinine 0.73 Estim Creat Clear Calc 74.9 Estimated GFR > 60 POC Glucose 129 H 133 H Random Glucose 122 H Calcium 9.2 Iron 40 TIBC 147 L % Saturation 27 Unsat Iron Binding 107 Total Bilirubin 0.4 AST 44 H ALT 72 H Alkaline Phosphatase 199 H Troponin I High Sens NT-Pro-B Natriuret Pep 2949.3 H Total Protein 6.2 L Albumin 3.2 L 12/19/24 12/19/24 12/19/24 07:43 08:57 09:00 WBC RBC Hgb Hct MCV MCH MCHC RDW Plt Count MPV Immature Gran % (Auto) Neut % (Auto) Lymph % (Auto) [place] % (Auto) Eos % (Auto) Baso % (Auto) Lymph # (Auto) [place] # (Auto) Eos # (Auto) Baso # (Auto) Abs Immat Gran (auto) Absolute Neuts (auto) Absolute Nucleated RBC Nucleated RBC % (auto) Hold Purple Top O2 Saturation 100.0 ABG pH at Pt Temp 7.47 H ABG pCO2 at Pt Temp 21 L ABG pO2 at Pt Temp 121 H ABG HCO3 16 L ABG Base Excess (Actual) -5.0 Sodium Potassium Chloride Carbon Dioxide Anion Gap BUN Creatinine Estim Creat Clear Calc Estimated GFR POC Glucose 153 H Random Glucose Calcium Iron TIBC % Saturation Unsat Iron Binding Total Bilirubin AST ALT Alkaline Phosphatase Troponin I High Sens 8.6 D NT-Pro-B Natriuret Pep Total Protein Albumin 12/19/24 12/19/24 11:12 16:21 WBC RBC Hgb Hct MCV MCH MCHC RDW Plt Count MPV Immature Gran % (Auto) Neut % (Auto) Lymph % (Auto) [place] % (Auto) Eos % (Auto) Baso % (Auto) Lymph # (Auto) [place] # (Auto) Eos # (Auto) Baso # (Auto) Abs Immat Gran (auto) Absolute Neuts (auto) Absolute Nucleated RBC Nucleated RBC % (auto) Hold Purple Top O2 Saturation ABG pH at Pt Temp ABG pCO2 at Pt Temp ABG pO2 at Pt Temp ABG HCO3 ABG Base Excess (Actual) Sodium Potassium Chloride Carbon Dioxide Anion Gap BUN Creatinine Estim Creat Clear Calc Estimated GFR POC Glucose 206 H 166 H Random Glucose Calcium Iron TIBC % Saturation Unsat Iron Binding Total Bilirubin AST ALT Alkaline Phosphatase Troponin I High Sens NT-Pro-B Natriuret Pep Total Protein Albumin Assessment and Plan (1) Pericardial effusion with cardiac tamponade: Status: Acute Large pericardial effusion with early signs of cardiac tamponade in this middle- aged woman who came in with respiratory distress as well as some chest pain with signs of respiratory variation on echocardiographic finding with diastolic collapse of the RV. Patient has IVC is not plethoric most likely due to IV Lasix that was given to the patient. Patient is tachycardic in compensating and maintaining a blood pressure but has required a lot of oxygen. Patient will require urgent pericardiocentesis. Discussed with IR team Dr. Hernandez in his team who will pursue the pericardial effusion, they require CTA chest to assess approach to the pericardial centesis. However when I approached the subject to the patient she will him mentally refuses to undergo any procedure including procedure that may save her life. That has issue with competency given her baseline psych issues as well as her receiving benzodiazepines. She does have a guardian. Discussed with the hospitalist team who were going to decide and discussed with guardian as to further approaches to the treatment. If pericardiocentesis is performed she will require pericardial fluid analysis to assess for future treatment guidance. I would leave the pericardial drain in place to continue help with pericardial drainage. Avoid diuretic regimen. Would give her IV fluids to maintain adequate intravascular volume to prevent hypotension and cardiac arrest. Than 40 minutes was spent in managing her care. Procedures Date of Service Date of Service: 12/19/24
--- NOTE | 2024-12-19 16:43 | P.EN_ITS ---
Event Note Date of Service: 12/19/24 Event Note: Patient is a 59 Y F w/ schizoaffective disorder, hyperlipidemia, hypothyroidism, and COPD presenting [facility] ED from [facility] on [facility] w/ encephalopathy, found to be in acute hypoxic respiratory failure thought to be d/t pneumonia, admitted medicine; on 12/19, patient developed worsening acute hypoxic respiratory failure, found to have cardiac tamponade, s/p pericardial drain N: intermittent agitation, home antipsychotic regimen, dexmedetomidine gtt, wean as tolerated CV: cardiac tamponade, s/p pericardial drain, to monitor output, follow-up fluid studies R: acute hypoxic respiratory failure, likely d/t pneumonia, NC, wean as tolerated GI: diabetic diet : no acute issues H: no acute issues; chemical DVT prophylaxis ID: pneumonia, ceftriaxone/azithromycin E: hypothyroidism, home levothyroxine P: schizoaffecitive disorder, home antipsychotic regimen Time Spent With Patient Time: Total time managing care of this patient today ____ minutes.
--- NOTE | 2024-12-19 17:59 | PC.NURSE ---
Addendum entered by Balbina Cannon RN 12/19/24 19:35: During this time of trying to get ultrasound IV patient yelling and screaming states that she wants to be left alone and does not care if she dies. Patient not wanting to consent to procedure and states that we are trying to kill her by doing the procedure. Hot Metal Crane Operator at [facility] states that this procedure would help save her life and patient states that she does not care. MD notified of these comments and patients guardian was contacted. Original Note: Patient confused and agitated pulling at lines. Patient has 22 gauge in the L forearm, pt pulling at IV and line infiltrated. That was patients only access. This RN and 2 other RN's attempted multiple times to get a peripheral line on patient but patient is a very hard stick and uncooperative. SUPPLY CHAIN VICE PRESIDENT and doctor at [facility] trying to place ultrasound IV after multiple attempts were able to get ultrasound in the L upper arm. Patient has LR, albumin and vanco that were due to be hung but patient was taken for STAT CT and STAT procure. Patient to be transferred to ICU after procedure.
--- NOTE | 2024-12-19 18:10 | PM.EVENT ---
Event Note Date of Service: 12/19/24 Event Note: I?contacted Ayla Martinez, the patient?s guardian ([phone]), to discuss the patient?s clinical status, specifically the presence of a pericardial effusion and the need for an urgent or emergent pericardiocentesis. I explained the procedure, including potential risks such as cardiac perforation, bleeding, infection, and other complications. Ayla Almalise demonstrated understanding of the situation and provided full consent for the procedure to proceed on an urgent or emergent basis. This conversation was witnessed by DANIELLA Ray. Time Spent With Patient Time: Total time managing care of this patient today ____ minutes.
--- NOTE | 2024-12-19 18:21 | PM.EVENT ---
Event Note Date of Service: 12/19/24 Event Note: The patient remained tachycardic and agitated, with ongoing shortness of breath and continued need for high-flow oxygen. A subsequent echocardiogram revealed a large pericardial effusion with concern for possible progression to cardiac tamponade. In response, intravenous fluids and albumin were administered, and diuretics were discontinued. Arrangements were made with interventional radiology for pericardiocentesis. The case was discussed with the ICU team, and plans were made for transfer to the ICU following a CT chest and completion of the pericardiocentesis. Time Spent With Patient Time: Total time managing care of this patient today ____ minutes.
--- NOTE | 2024-12-19 18:30 | PM.EVENT ---
Documented by User: Samy Smith NP 12/19/24 18:32 Event Note Date of Service: 12/19/24 Event Note: Procedure performed: pericardial drain in the setting of large pericardial effusion and suspected/near impending tamponade. 8 F drain successfully placed under CT guidance. 180 cc yellow fluid aspirated. Effusion successfully evacuated. Drain to be left to continous AUGUSTINE sharp. Full procedure note to follow. Time Spent With Patient Time: Total time managing care of this patient today _60___ minutes. Documented by User: Ahemt Hernandez MD 12/24/24 15:12 Event Note Date of Service: 12/24/24
[2024-12-19] MEDS: vancomycin HCL 1,000 MG, vancomycin HCL 750 MG in 0.9 % Sodium Chloride 500 ML 267.5 MG IV (19:33)
--- NOTE | 2024-12-19 19:34 | PC.NURSE ---
Pt arrived to? ICU from OR approx. 1845. Pt awake, following commands, Sp02 100% on Nonrebrether, transition to 10L Oxymask Sp02 93%. HR 115, Pericardial Drain DGS dry/intact. 60cc drained.
[2024-12-19 20:11] LABS: Lymphs Pericardial Fl 4 %; Monocytes Pericard Fl 3 %; Other Pericard Fl 93 %; WBC Pericardial Fluid 293 MM*3
[2024-12-19 20:12] LABS: BF Shift QC OK YES
--- NOTE | 2024-12-19 20:16 | PHA.PROG ---
Admission Date/Time: December 17, 2024 11:06 Indication: RESPIRATORY Weight in k kg Adjusted body weight in Kg: [place] body weight in Kg: Obesity Dosing Indication % IBW: Serum Creatinine - Last 168 Hours 12/17/24 12/19/24 08:43 05:39 Creatinine 0.94 0.73 Estimated CrCl and GFR - Last 168 Hours 12/17/24 12/19/24 08:43 05:39 Estim Creat Clear Calc 58.1 74.9 Estimated GFR > 60 > 60 Vancomycin Loading Dose: 1750 MG Current Vancomycin Dosing Regimen: 1000 MG Q12H Vancomycin Monitoring using AUC goal of 400 - 600 range with trough as surrogate marker: ABD=[id number] TROUGH=18.1 Date and Time for next Vancomycin Level to be drawn: 12/21/24 @0600 Pharmacist Comments on Vancomycin Plan: Vancomycin dosing will take advantage of [employer] as a clinical decision support tool that uses Bayesian modeling to calculate individual patient's pharmacokinetic parameters and forecast the patient's drug concentration time course with the target goal AUC 24 range of 400 - 600 mg/L/hr.
[2024-12-19] MEDS: dexmedeTOMIDine HCL/NS 400 MCG/100 ML PLAST..BAG 17 MCG IVCONT ×2 (20:17→22:57)
--- NOTE | 2024-12-19 20:18 | HO.ANESPROP2 ---
HPI - Anesthesia Eval Consult details Narrative: For emergecy pericardiocentesis in CT. Called to CT scan w the patient already in the CT scanner. Dr. Hernandez requested sedation for insertion pericardial drainage catheter bec of pericard tamponade. Patient in extremis on my exam. PMFSH Active Problems Active Problems: All Active Problems Pericardial effusion with cardiac tamponade (Acute) Acute respiratory failure with hypoxia (Acute) COPD (chronic obstructive pulmonary disease) (Acute) Anxiety (Acute) GERD (gastroesophageal reflux disease) (Acute) Hypothyroidism (Acute) Encephalopathy acute (Acute) Acidosis, lactic (Acute) Pneumonia (Acute) Past Medical History Medical History (Updated 12/19/24 @ 16:56 by Isauro Lea MD) COPD (chronic obstructive pulmonary disease) Anxiety Hypothyroidism HLD (hyperlipidemia) UTI (urinary tract infection) PTSD (post-traumatic stress disorder) Diabetes Schizoaffective disorder Family History Family history of problems with anesthesia: Unobtainable Surgical History History of Problems with Anesthesia: Unobtainable Social History Social History (Updated 12/17/24 @ 08:26 by Tia Blake DO) Household Members: None Housing: Apartment Do you presently have visiting nurse or other home services: Yes Patient Tobacco Use Status: Current everyday Tobacco user Tobacco use type: Cigarette service: No Meds Allergies Allergy/AdvReac Type Severity Reaction Status Date / Time celecoxib Allergy Unknown Verified 12/17/24 08:10 fish derived (fish) Allergy Unknown Verified 12/17/24 08:10 gabapentin Allergy Unknown Verified 12/17/24 08:10 guanfacine Allergy Unknown Verified 12/17/24 08:10 ibuprofen Allergy Unknown Verified 12/17/24 08:10 olanzapine Allergy Unknown Verified 12/17/24 08:10 Penicillins Allergy Unknown Verified 12/17/24 08:10 prazosin Allergy Unknown Verified 12/17/24 08:10 Active Medications: Current Medications Albuterol/Ipratropium (Albuterol/Iprat 2.5/0.5mg 3 Ml Ampul.Neb) 3 ml INHALE RQ4H WHILE AWAKE [facility] Last Admin: 12/19/24 19:44 Dose: 3 ml Albuterol/Ipratropium (Albuterol/Iprat 2.5/0.5mg 3 Ml Ampul.Neb) 3 ml INHALE RQ4H WHILE AWAKE PRN PRN Reason: Shortness of Breath Ceftriaxone Sodium (Ceftriaxone Sodium 1 Gm Vial) 1 gm IVPUSH DAILY [facility] Last Admin: 12/19/24 09:56 Dose: 1 gm Dextrose (Dextrose 50 % 25 Gm/50 Ml Syringe) 25 gm IVPUSH Q15M PRN; Protocol PRN Reason: per Hypoglycemia Standing Ord. Enoxaparin Sodium (Enoxaparin Sodium 40 Mg/0.4 Ml Syringe) 40 mg SUBCUT Q24H [facility] Last Admin: 12/19/24 12:47 Dose: 40 mg Fluticasone/Vilanterol (Fluticasone/Vilanterol 200/25 Blst.W.Dev) 1 puff INHALE RDAILY [facility] Last Admin: 12/19/24 07:59 Dose: Not Given Glucose (Glucose Gel 15 Gm Gel..Gram.) 15 gm PO Q15M PRN; Protocol PRN Reason: per Hypoglycemia Standing Ord. Azithromycin 500 mg/ Sodium (Chloride) 250 mls @ 125 mls/hr IV DAILY [facility] Last Infusion: 12/19/24 12:17 Dose: Infused Lactated Ringer's (Lr) 1,000 mls @ 150 mls/hr IVCONT .Q6H40M [facility] Dexmedetomidine HCl (Precedex) 400 mcg in 100 mls @ 0 mls/hr IVCONT .Q0M [facility]; Protocol Vancomycin HCl 1,000 mg/ (Sodium Chloride) 270 mls @ 270 mls/hr IV Q12H [facility] Insulin Human Lispro (Insulin Lispro 100 Unit/Ml 3 Ml Vial) 0 unit SUBCUT QIDACHS [facility]; Protocol Last Admin: 12/19/24 18:47 Dose: Not Given Levothyroxine Sodium (Levothyroxine Sodium 50 Mcg Tablet) 50 mcg PO DAILY@0600 [facility] Last Admin: 12/19/24 06:57 Dose: Not Given Pharmacy Consult (Consult Rx Vancomycin Dosing) 1 each MISCELLANE DAILY PRN PRN Reason: Consult order Quetiapine Fumarate (Quetiapine Fumarate 400 Mg Tablet) 400 mg PO BEDTIME [facility] Last Admin: 12/18/24 21:25 Dose: 400 mg Risperidone (Risperidone 2 Mg Tablet) 2 mg PO BEDTIME [facility] Last Admin: 12/18/24 21:25 Dose: 2 mg Risperidone (Risperidone 1 Mg Tablet) 1 mg PO DAILY [facility] Last Admin: 12/19/24 09:56 Dose: 1 mg Ropinirole HCl (Ropinirole Hcl 0.25 Mg Tablet) 0.25 mg PO DAILY [facility] Last Admin: 12/19/24 09:56 Dose: 0.25 mg Sodium Chloride (0.9 % Sodium Chloride Flush 3 Ml Syringe) 3 ml IVFLUSH QSHIFT [facility] Last Admin: 12/19/24 14:49 Dose: 3 ml Home Medications ?Medication ?Instructions ?Recorded ?Confirmed ?Last Taken ?Type acetaminophen 325 mg tablet 650 mg PO Q6H PRN Fever/Pain 12/17/24 12/17/24 Unknown History albuterol sulfate 90 mcg/actuation 1 puff inhalation Q4H PRN 12/17/24 12/17/24 Unknown History aerosol inhaler Shortness Of Breath Or Wheezing ascorbic acid (vitamin C) 500 mg 500 mg PO DAILY 12/17/24 12/17/24 Unknown History tablet benzocaine 15 mg-menthol 3.6 mg 1 kemi mucous membrane Q2H PRN Sore 12/17/24 12/17/24 Unknown History lozenges (Cepacol Sore Throat Throat (benzocaine-menthol)) calcium carbonate (Tums E-X) 600 mg PO Q4H PRN Acid Reflux 12/17/24 12/17/24 Unknown History cholecalciferol (vitamin D3) 25 25 mcg PO DAILY 12/17/24 12/17/24 Unknown History mcg (1,000 unit) tablet (Vitamin D3) cyclobenzaprine 10 mg tablet 10 mg PO DAILY PRN Sciatica 12/17/24 12/17/24 Unknown History diphenhydramine HCl 25 mg tablet 25 mg PO Q8H PRN Allergy Symptoms 12/17/24 12/17/24 Unknown History (Benadryl Allergy) ferrous sulfate 325 mg (65 mg 325 mg PO DAILY 12/17/24 12/17/24 Unknown History iron) tablet fluticasone 250 mcg-salmeterol 50 1 inh inhalation BID 12/17/24 12/17/24 Unknown History mcg/dose blistr powdr for inhalation (Advair Diskus) fluticasone furoate 100 1 inh inhalation DAILY 12/17/24 12/17/24 Unknown History mcg-vilanterol 25 mcg/dose inhalation powder (Breo Ellipta) glucagon HCl 1 mg solution for 1 mg subcut Q15M PRN Hypoglycemia 12/17/24 12/17/24 Unknown History injection (Glucagon (HCl) Emergency Kit) hydroxyzine HCl 25 mg tablet 25 mg PO DAILY 12/17/24 12/17/24 Unknown History hydroxyzine HCl 50 mg tablet 50 mg PO DAILY 12/17/24 12/17/24 Unknown History hydroxyzine HCl 50 mg tablet 100 mg PO BID 12/17/24 12/17/24 Unknown History insulin lispro 100 unit/mL See Protocol subcut TUTHSA 12/17/24 12/17/24 Unknown History subcutaneous solution (Humalog U-100 Insulin) levothyroxine 50 mcg tablet 50 mcg PO DAILY@0600 12/17/24 12/17/24 Unknown History lidocaine 4 % topical patch 1 patch topical DAILY 12/17/24 12/17/24 Unknown History lidocaine HCl 2 % mucosal solution 15 ml mucous membrane Q6H PRN Gum 12/17/24 12/17/24 Unknown History (Lidocaine Viscous) Pain/Oral Ulcers loperamide 2 mg tablet 2 mg PO DAILY PRN Loose Stool 12/17/24 12/17/24 Unknown History loratadine 10 mg tablet 10 mg PO DAILY PRN Post Nasal Drip 12/17/24 12/17/24 Unknown History melatonin 1 mg tablet 1 mg PO BEDTIME 12/17/24 12/17/24 Unknown History melatonin 3 mg tablet 3 mg PO BEDTIME 12/17/24 12/17/24 Unknown History metformin 1,000 mg tablet 1,000 mg PO BID 12/17/24 12/17/24 Unknown History mirtazapine 15 mg tablet 7.5 mg PO BEDTIME 12/17/24 12/17/24 Unknown History naloxone 4 mg/actuation nasal 1 spray intranasal Q3M PRN Opioid 12/17/24 12/17/24 Unknown History spray (Narcan) Overdose nystatin 100,000 unit/gram topical 1 appl topical TID 12/17/24 12/17/24 Unknown History powder ondansetron HCl 4 mg tablet 4 mg PO Q6H PRN Nausea And Vomiting 12/17/24 12/17/24 Unknown History pantoprazole 40 mg tablet,delayed 40 mg PO DAILY@0630 12/17/24 12/17/24 Unknown History release polyethylene glycol 3350 17 17 g PO DAILY 12/17/24 12/17/24 Unknown History gram/dose oral powder (Miralax) quetiapine 400 mg tablet (Seroquel) 400 mg PO BEDTIME 12/17/24 12/17/24 Unknown History risperidone 1 mg tablet 1 mg PO DAILY 12/17/24 12/17/24 Unknown History risperidone 2 mg tablet (Risperdal) 2 mg PO BEDTIME 12/17/24 12/17/24 Unknown History ropinirole 0.25 mg tablet 0.25 mg PO DAILY 12/17/24 12/17/24 Unknown History rosuvastatin 10 mg tablet 10 mg PO BEDTIME 12/17/24 12/17/24 Unknown History sennosides 8.6 mg tablet (senna) 8.6 mg PO DAILY PRN Constipation 12/17/24 12/17/24 Unknown History sitagliptin phosphate 50 mg tablet 50 mg PO DAILY 12/17/24 12/17/24 Unknown History (Januvia) sodium phosphates 19 gram-[address] DAILY PRN Constipation 12/17/24 12/17/24 Unknown History gram/118 mL enema (Fleet Enema) tramadol 50 mg tablet 50 mg PO TID 12/17/24 12/17/24 Unknown History trazodone 100 mg tablet 100 mg PO BEDTIME 12/17/24 12/17/24 Unknown History triamcinolone acetonide 55 mcg 2 spray intranasal DAILY 12/17/24 12/17/24 Unknown History nasal spray aerosol (Nasacort) Exam Height,Weight and Vital Signs: Height 5 ft 3 in Weight 68 kg Last Vital Signs Temp 97.6 F 12/19/24 15:37 Pulse 118 H 12/19/24 19:44 Resp 20 12/19/24 19:44 BP 131/70 12/19/24 15:37 Pulse Ox 92 12/19/24 15:37 O2 Del Method High Flow Nasal Cannula 12/19/24 15:37 O2 Flow Rate 40 12/19/24 15:37 FiO2 50 12/19/24 15:37 Pertinent Lab Results Pertinent Lab Results: Laboratory Tests 12/17/24 12/17/24 12/17/24 08:42 08:43 08:49 WBC 11.9 H RBC 4.88 Hgb 11.5 L Hct 33.7 L MCV 69.1 L MCH 23.6 L MCHC 34.1 RDW 15.7 Plt Count 280 MPV 8.9 L Immature Gran % (Auto) 0.6 H Neut % (Auto) 79.1 H Lymph % (Auto) 8.8 L [place] % (Auto) 9.5 Eos % (Auto) 1.5 Baso % (Auto) 0.5 Lymph # (Auto) 1.1 L [place] # (Auto) 1.1 Eos # (Auto) 0.2 Baso # (Auto) 0.1 Abs Immat Gran (auto) 0.07 H Absolute Neuts (auto) 9.4 H Absolute Nucleated RBC 0.000 Nucleated RBC % (auto) 0.0 Hold Purple Top O2 Saturation ABG pH at Pt Temp ABG pCO2 at Pt Temp ABG pO2 at Pt Temp ABG HCO3 ABG Base Excess (Actual) VBG pH 7.38 VBG pCO2 30 VBG pO2 43 VBG HCO3 18 L VBG O2 Saturation 63.0 VBG Base Excess -5.5 Sodium 139 Potassium 4.0 Chloride 111 H Carbon Dioxide 18 L Anion Gap 14 BUN 20 H Creatinine 0.94 Estim Creat Clear Calc 58.1 Estimated GFR > 60 POC Glucose Random Glucose 152 H Lactic Acid 2.1 H* Lactic Acid F/U @ 2Hr Lactic Acid F/U @ 4Hr Calcium 9.5 Magnesium 1.8 Iron TIBC % Saturation Unsat Iron Binding Total Bilirubin 0.5 Direct Bilirubin 0.3 AST 127 H ALT 136 H Alkaline Phosphatase 118 H Ammonia 20 Troponin I High Sens 3.4 C-Reactive Protein 22.84 H NT-Pro-B Natriuret Pep Total Protein 6.7 Albumin 3.6 Lipase 8 Urine Color Urine Appearance Urine pH Ur Specific [place] Urine Protein Urine Glucose (UA) Urine Ketones Urine Blood Urine Nitrite Ur Leukocyte Esterase Urine RBC Urine WBC Ur Squamous Epith Cells Urine Bacteria Hyaline Casts [place] WBC [place] RBC [place] Lymphocytes [place] Monocytes Pericard Other Cells COVID-19 ([facility]ENIO) Negative COVID-19 Clin Com See Note Influenza Type A (HECTOR) Negative Influenza Type B (HECTOR) Negative Influenza A & B Note See Note 12/17/24 12/17/24 12/17/24 09:51 11:27 15:10 WBC RBC Hgb Hct MCV MCH MCHC RDW Plt Count MPV Immature Gran % (Auto) Neut % (Auto) Lymph % (Auto) [place] % (Auto) Eos % (Auto) Baso % (Auto) Lymph # (Auto) [place] # (Auto) Eos # (Auto) Baso # (Auto) Abs Immat Gran (auto) Absolute Neuts (auto) Absolute Nucleated RBC Nucleated RBC % (auto) Hold Purple Top O2 Saturation ABG pH at Pt Temp ABG pCO2 at Pt Temp ABG pO2 at Pt Temp ABG HCO3 ABG Base Excess (Actual) VBG pH VBG pCO2 VBG pO2 VBG HCO3 VBG O2 Saturation VBG Base Excess Sodium Potassium Chloride Carbon Dioxide Anion Gap BUN Creatinine Estim Creat Clear Calc Estimated GFR POC Glucose Random Glucose Lactic Acid Lactic Acid F/U @ 2Hr 2.5 H* Lactic Acid F/U @ 4Hr 2.0 Calcium Magnesium Iron TIBC % Saturation Unsat Iron Binding Total Bilirubin Direct Bilirubin AST ALT Alkaline Phosphatase Ammonia Troponin I High Sens C-Reactive Protein NT-Pro-B Natriuret Pep Total Protein Albumin Lipase Urine Color Dark Yellow Urine Appearance Clear Urine pH 6.0 Ur Specific [place] 1.025 Urine Protein 30 (1+) H Urine Glucose (UA) Negative Urine Ketones Negative Urine Blood Negative Urine Nitrite Negative Ur Leukocyte Esterase Trace H Urine RBC 0-2 Urine WBC 0-5 Ur Squamous Epith Cells 0-2 Urine Bacteria None Seen Hyaline Casts 0-2 [place] WBC [place] RBC [place] Lymphocytes [place] Monocytes [place]ard Other Cells COVID-19 ([facility]ENIO) COVID-19 Clin Com Influenza Type A (HECTOR) Influenza Type B (HECTOR) Influenza A & B Note 12/17/24 12/17/24 12/18/24 18:43 21:25 03:50 WBC 12.3 H RBC 4.29 Hgb 10.0 L Hct 29.6 L MCV 69.0 L MCH 23.3 L MCHC 33.8 RDW 15.5 Plt Count 235 MPV 10.4 Immature Gran % (Auto) Neut % (Auto) Lymph % (Auto) [place] % (Auto) Eos % (Auto) Baso % (Auto) Lymph # (Auto) [place] # (Auto) Eos # (Auto) Baso # (Auto) Abs Immat Gran (auto) Absolute Neuts (auto) Absolute Nucleated RBC 0.000 Nucleated RBC % (auto) 0.0 Hold Purple Top O2 Saturation ABG pH at Pt Temp ABG pCO2 at Pt Temp ABG pO2 at Pt Temp ABG HCO3 ABG Base Excess (Actual) VBG pH VBG pCO2 VBG pO2 VBG HCO3 VBG O2 Saturation VBG Base Excess Sodium Potassium Chloride Carbon Dioxide Anion Gap BUN Creatinine Estim Creat Clear Calc Estimated GFR POC Glucose 155 H 156 H Random Glucose Lactic Acid Lactic Acid F/U @ 2Hr Lactic Acid F/U @ 4Hr Calcium Magnesium Iron TIBC % Saturation Unsat Iron Binding Total Bilirubin Direct Bilirubin AST ALT Alkaline Phosphatase Ammonia Troponin I High Sens C-Reactive Protein NT-Pro-B Natriuret Pep Total Protein Albumin Lipase Urine Color Urine Appearance Urine pH Ur Specific [place] Urine Protein Urine Glucose (UA) Urine Ketones Urine Blood Urine Nitrite Ur Leukocyte Esterase Urine RBC Urine WBC Ur Squamous Epith Cells Urine Bacteria Hyaline Casts [place] WBC [place] RBC [place] Lymphocytes [place]ard Monocytes Pericard Other Cells COVID-19 ([facility]ENIO) COVID-19 Clin Com Influenza Type A (HECTOR) Influenza Type B (HECTOR) Influenza A & B Note 12/18/24 12/18/24 12/18/24 07:23 11:14 15:43 WBC RBC Hgb Hct MCV MCH MCHC RDW Plt Count MPV Immature Gran % (Auto) Neut % (Auto) Lymph % (Auto) [place] % (Auto) Eos % (Auto) Baso % (Auto) Lymph # (Auto) [place] # (Auto) Eos # (Auto) Baso # (Auto) Abs Immat Gran (auto) Absolute Neuts (auto) Absolute Nucleated RBC Nucleated RBC % (auto) Hold Purple Top O2 Saturation ABG pH at Pt Temp ABG pCO2 at Pt Temp ABG pO2 at Pt Temp ABG HCO3 ABG Base Excess (Actual) VBG pH VBG pCO2 VBG pO2 VBG HCO3 VBG O2 Saturation VBG Base Excess Sodium Potassium Chloride Carbon Dioxide Anion Gap BUN Creatinine Estim Creat Clear Calc Estimated GFR POC Glucose 115 134 H 151 H Random Glucose Lactic Acid Lactic Acid F/U @ 2Hr Lactic Acid F/U @ 4Hr Calcium Magnesium Iron TIBC % Saturation Unsat Iron Binding Total Bilirubin Direct Bilirubin AST ALT Alkaline Phosphatase Ammonia Troponin I High Sens C-Reactive Protein NT-Pro-B Natriuret Pep Total Protein Albumin Lipase Urine Color Urine Appearance Urine pH Ur Specific [place] Urine Protein Urine Glucose (UA) Urine Ketones Urine Blood Urine Nitrite Ur Leukocyte Esterase Urine RBC Urine WBC Ur Squamous Epith Cells Urine Bacteria Hyaline Casts [place] WBC [place] RBC [place] Lymphocytes [place] Monocytes Pericard Other Cells COVID-19 ([facility]ENIO) COVID-19 Clin Com Influenza Type A (HECTOR) Influenza Type B (HECTOR) Influenza A & B Note 12/18/24 12/19/24 12/19/24 20:07 05:39 07:42 WBC 14.0 H RBC 4.47 Hgb 10.5 L Hct 30.2 L MCV 67.6 L MCH 23.5 L MCHC 34.8 RDW 15.6 Plt Count 336 D MPV 10.0 Immature Gran % (Auto) 0.7 H Neut % (Auto) 84.2 H Lymph % (Auto) 7.4 L [place] % (Auto) 6.4 Eos % (Auto) 0.9 Baso % (Auto) 0.4 Lymph # (Auto) 1.0 L [place] # (Auto) 0.9 Eos # (Auto) 0.1 Baso # (Auto) 0.1 Abs Immat Gran (auto) 0.10 H Absolute Neuts (auto) 11.8 H Absolute Nucleated RBC 0.000 Nucleated RBC % (auto) 0.0 Hold Purple Top SEE NOTE O2 Saturation ABG pH at Pt Temp ABG pCO2 at Pt Temp ABG pO2 at Pt Temp ABG HCO3 ABG Base Excess (Actual) VBG pH VBG pCO2 VBG pO2 VBG HCO3 VBG O2 Saturation VBG Base Excess Sodium 141 Potassium 3.3 Chloride 110 H Carbon Dioxide 19 L Anion Gap 15 BUN 10 Creatinine 0.73 Estim Creat Clear Calc 74.9 Estimated GFR > 60 POC Glucose 129 H 133 H Random Glucose 122 H Lactic Acid Lactic Acid F/U @ 2Hr Lactic Acid F/U @ 4Hr Calcium 9.2 Magnesium Iron 40 TIBC 147 L % Saturation 27 Unsat Iron Binding 107 Total Bilirubin 0.4 Direct Bilirubin AST 44 H ALT 72 H Alkaline Phosphatase 199 H Ammonia Troponin I High Sens C-Reactive Protein NT-Pro-B Natriuret Pep 2949.3 H Total Protein 6.2 L Albumin 3.2 L Lipase Urine Color Urine Appearance Urine pH Ur Specific [place] Urine Protein Urine Glucose (UA) Urine Ketones Urine Blood Urine Nitrite Ur Leukocyte Esterase Urine RBC Urine WBC Ur Squamous Epith Cells Urine Bacteria Hyaline Casts [place] WBC [place] RBC [place] Lymphocytes [place] Monocytes Pericard Other Cells COVID-19 ([facility]IO) COVID-19 Clin Com Influenza Type A (HECTOR) Influenza Type B (HECTOR) Influenza A & B Note 12/19/24 12/19/24 12/19/24 07:43 08:57 09:00 WBC RBC Hgb Hct MCV MCH MCHC RDW Plt Count MPV Immature Gran % (Auto) Neut % (Auto) Lymph % (Auto) [place] % (Auto) Eos % (Auto) Baso % (Auto) Lymph # (Auto) [place] # (Auto) Eos # (Auto) Baso # (Auto) Abs Immat Gran (auto) Absolute Neuts (auto) Absolute Nucleated RBC Nucleated RBC % (auto) Hold Purple Top O2 Saturation 100.0 ABG pH at Pt Temp 7.47 H ABG pCO2 at Pt Temp 21 L ABG pO2 at Pt Temp 121 H ABG HCO3 16 L ABG Base Excess (Actual) -5.0 VBG pH VBG pCO2 VBG pO2 VBG HCO3 VBG O2 Saturation VBG Base Excess Sodium Potassium Chloride Carbon Dioxide Anion Gap BUN Creatinine Estim Creat Clear Calc Estimated GFR POC Glucose 153 H Random Glucose Lactic Acid Lactic Acid F/U @ 2Hr Lactic Acid F/U @ 4Hr Calcium Magnesium Iron TIBC % Saturation Unsat Iron Binding Total Bilirubin Direct Bilirubin AST ALT Alkaline Phosphatase Ammonia Troponin I High Sens 8.6 D C-Reactive Protein NT-Pro-B Natriuret Pep Total Protein Albumin Lipase Urine Color Urine Appearance Urine pH Ur Specific [place] Urine Protein Urine Glucose (UA) Urine Ketones Urine Blood Urine Nitrite Ur Leukocyte Esterase Urine RBC Urine WBC Ur Squamous Epith Cells Urine Bacteria Hyaline Casts [place] WBC [place] RBC [place] Lymphocytes [place] Monocytes Pericard Other Cells COVID-19 ([facility]IO) COVID-19 Clin Com Influenza Type A (HECTOR) Influenza Type B (HECTOR) Influenza A & B Note 12/19/24 12/19/24 12/19/24 11:12 16:21 18:25 WBC RBC Hgb Hct MCV MCH MCHC RDW Plt Count MPV Immature Gran % (Auto) Neut % (Auto) Lymph % (Auto) [place] % (Auto) Eos % (Auto) Baso % (Auto) Lymph # (Auto) [place] # (Auto) Eos # (Auto) Baso # (Auto) Abs Immat Gran (auto) Absolute Neuts (auto) Absolute Nucleated RBC Nucleated RBC % (auto) Hold Purple Top O2 Saturation ABG pH at Pt Temp ABG pCO2 at Pt Temp ABG pO2 at Pt Temp ABG HCO3 ABG Base Excess (Actual) VBG pH VBG pCO2 VBG pO2 VBG HCO3 VBG O2 Saturation VBG Base Excess Sodium Potassium Chloride Carbon Dioxide Anion Gap BUN Creatinine Estim Creat Clear Calc Estimated GFR POC Glucose 206 H 166 H Random Glucose Lactic Acid Lactic Acid F/U @ 2Hr Lactic Acid F/U @ 4Hr Calcium Magnesium Iron TIBC % Saturation Unsat Iron Binding Total Bilirubin Direct Bilirubin AST ALT Alkaline Phosphatase Ammonia Troponin I High Sens C-Reactive Protein NT-Pro-B Natriuret Pep Total Protein Albumin Lipase Urine Color Urine Appearance Urine pH Ur Specific [place] Urine Protein Urine Glucose (UA) Urine Ketones Urine Blood Urine Nitrite Ur Leukocyte Esterase Urine RBC Urine WBC Ur Squamous Epith Cells Urine Bacteria Hyaline Casts [place] WBC 293 [place] RBC 67 [place] Lymphocytes 4 [place] Monocytes 3 [place] Other Cells 93 COVID-19 ([facility]ENIO) COVID-19 Clin Com Influenza Type A (HECTOR) Influenza Type B (HECTOR) Influenza A & B Note Airway Mallampati Class: Patient Non-Cooperative TM Dist: <=3cm Heart: Rhythm ?MAT, HR 130. Lungs: RR 30s, mildly labored, Sat low 90s on 15L NRBFM. Assessment and Plan Assessment Anesthesia Assessment: Anesthesia Plan Discussed and Chart Reviewed Final Anesthetic Review Family History of Problems with Anesthesia: Unobtainable History of Problems with Anesthesia: Unobtainable NPO: Yes ASA Class: III and Emergency Final Preanesthetic Review: No Changes in Pt Med Stat and Meds/Allgs Chart Reviewed Patient Risk: High Procedure Risk: Intermediate Anesthetic Plan Anesthetic Plan: MAC: (Emergecy consent presumed.), Agree w/ Assess. and Plan and TIVA Disposition: Standard PACU
--- NOTE | 2024-12-19 20:52 | HO.POSTANES ---
Post Anesthesia Evaluation Post Anesthesia Evaluation Date of Service: 12/19/24 Vital Signs: Vital Signs Temp Pulse Resp BP Pulse Ox O2 Del Method O2 Flow Rate 12/19/24 19:44 118 H 20 12/19/24 15:37 97.6 F 122 H 20 131/70 92 High Flow Nasal Cannula 40 12/19/24 15:33 130 H 18 12/19/24 15:29 20 12/19/24 11:58 97.4 F 128 H 20 110/62 98 High Flow Nasal Cannula 50 12/19/24 11:32 18 12/19/24 11:31 101 H 18 12/19/24 10:03 18 FiO2 12/19/24 19:44 12/19/24 15:37 50 12/19/24 15:33 12/19/24 15:29 12/19/24 11:58 50 12/19/24 11:32 12/19/24 11:31 12/19/24 10:03 Anesthesia: Monitored Mental Status: Awake Pain Control: Satisfactory Nausea/Vomiting: None Hydration: Adequate Anesthesia-Related Issues: No Anes. Related Issues
[2024-12-19 21:20] LABS: Glucose, Whole Blood 157 mg/dL (60-115)
[2024-12-19] MEDS: Lactated Ringers 1,000 ML 150 ML IVCONT (21:57)
[2024-12-20] VITALS (38 sets, daily range): BP systolic 102–159; BP diastolic 48–82; PULSE 66–105; RESP 16–105; TEMP 36.3–37.6; O2SAT 87–96
[2024-12-20] MEDS: Lidocaine 4 % Patch ADH..PATCH 1 PATCH TRANSDERMA (00:01)
[2024-12-20 00:41] LABS: ABG Refer to POC result
[2024-12-20] MEDS: Lactated Ringers 1,000 ML 150 ML IVCONT (04:06)
[2024-12-20 04:09] LABS: ABG HCO3 25 mmol/L (22-26); ABG O2 % Saturation 83.0 %
[2024-12-20] MEDS: dexmedeTOMIDine HCL/NS 400 MCG/100 ML PLAST..BAG 17 MCG IVCONT ×4 (04:09→18:45)
[2024-12-20 04:11] LABS: ABG Refer to POC result
[2024-12-20 06:20] LABS: MANUAL DIFF FLAG NO
--- NOTE | 2024-12-20 06:24 | PC.NURSE ---
Patient transferred to ICU S/P pericardial drain in the setting of pericardial effusion. Patient A/O x1 SR/ ST on telemetry. LS coarse/dim. Oxygen saturation decreasing requiring High flow .Patient has Precedex infusing for sedation for increased restlessness. Unable to urinate overnight, Bladder scanned for >743/str cathed for 700ml/ purewick in place. AUGUSTINE drain left chest, draining 20 ml/ yellow fluid overnight Restraints remain on so patient does not remove drain. 1:1 sitter at bedside , patient continues to endorse suicidal ideation. Patient resting at present time. VSS
[2024-12-20 06:43] LABS: Hematocrit 25.9 % (37.0-47.0); Hemoglobin 8.8 g/dl (12.0-16.0); Imm Gran Abs Auto 0.07 X10*3/uL (0.00-0.03); Imm Gran Pct Auto 0.7 % (0.0-0.4); Lymphocytes Absolute Auto 0.9 X10*3/uL (1.2-4.9); Mean Corpuscular HGB Conc 34.0 g/dl (31.0-35.0); Mean Corpuscular Hemoglobin 23.2 pg (27.0-33.0); Mean Corpuscular Volume 68.2 fL (80.0-98.0); NRBC Abs Auto 0.020 X10*3/uL (0.0-0.012); NRBC Pct Auto 0.2 /100WBC (0.0-0.2); Platelet Count 275 X10*3/uL (160-400); Red Blood Count 3.80 X10*6/uL (4.20-5.50); White Blood Count 9.6 X10*3/uL (4.8-10.8)
[2024-12-20 06:46] LABS: Albumin Level 3.1 g/dL (3.5-5.0); Anion Gap 10 (12-20); Blood Urea Nitrogen 12 mg/dL (9-16); Calcium 8.6 mg/dL (8.4-10.2); Carbon Dioxide 23 mmol/L (22-29); Chloride 113 mmol/L (96-108); Creatinine Clr Calc Pharmacy 94.3; Estimated Glomerular Filt Rate > 60; Magnesium 1.7 mg/dL (1.6-2.6); Potassium 2.9 mmol/L (3.3-5.1); Sodium 143 mmol/L (135-145)
[2024-12-20] MEDS: Potassium Chloride/H20 10 MEQ/100 ML PIGGYBACK 100 MEQ IV ×4 (07:25→11:40)
[2024-12-20 07:32] LABS: Albumin Pericardial Fluid 2.5
[2024-12-20 07:33] LABS: Total Protein Pericardial Flui 3.4
[2024-12-20 07:34] LABS: Glucose Pericardial Fluid 149
[2024-12-20] MEDS: Albuterol/Iprat 2.5/0.5MG 3 ML AMPUL.NEB INHALE ×4 (07:34→18:51)
[2024-12-20 07:39] LABS: Glucose, Whole Blood 144 mg/dL (60-115)
[2024-12-20] MEDS: 0.9 % Sodium Chloride Flush 3 ML SYRINGE IVFLUSH ×3 (08:11→20:34)
--- NOTE | 2024-12-20 09:00 | CA_ITS ---
Transthoracic Echocardiogram Patient (Last, First, Middle): Jennifer Ronquillo, Gender: Female Date of : 1965 Age: 59 Procedure Date: 12/20/2024 Procedure Type: Transthoracic Echocardiogram Location: ICU Height: 160.02 cm Weight: 67.59 kg BSA: 1.71 m2 Heart Rate: bpm BP: 131 / 68 mmHg Automotive Upholsterer: TO Referring MD: Nuris Nelson MD Field Appraiser: Isauro Lea MD Symptoms: Please Assess Pericardial Effusion Study Quality: Technically Difficult ECG Rhythm: Sinus Conclusions: - Trace to small pericardial effusion, circumferential with respiratory variation which may suggest constrictive physiology Findings Procedure Information The study quality is limited by the patients inability to tolerate the test and an uncooperative patient. Pericardium/Pleural There is a trivial circumferential pericardial effusion. There are echocardiographic findings consistent with constrictive physiology. There is excessive respiratory variation of the tricuspid valve Doppler velocities. Prior Study Comparison Changes noted compared to prior study dated: 12/19/2024. pericardial effusion has significantly improved with suggestion of constrictive physiology Updated in Other Vendor System with Status of Final Isauro Lea MD electronically signed on 12/20/2024 11:01:56 AM with status of Final
--- NOTE | 2024-12-20 09:25 | P.PNCC_ITS ---
Subjective Subjective Date of Service: 12/20/24 Interval History: s/p pericardial drain 12/19, subsequently hemodynamically stable; of note, likely aspiration event 12/19 PM, subsequently w/ acute hypoxic respiratory failure, on HFNC Critical Care Time (minutes): 60 Physical Exam 2 Vital Signs: Vital Signs: Last Vital Signs Temp 97.6 F 12/20/24 08:00 Pulse 75 12/20/24 09:00 Resp 39 H 12/20/24 09:00 BP 140/77 H 12/20/24 09:00 Pulse Ox 90 L 12/20/24 09:00 O2 Del Method High Flow Nasal C annula 12/20/24 09:00 O2 Flow Rate 50 12/20/24 09:00 FiO2 70 12/20/24 09:00 BMI result Body Mass Index 26.6 Const: General: no acute distress, awake and Physically active HEENT: Head: Yes normal to inspection, Yes normocephalic and Yes atraumatic Eyes: General: appearance normal, both eyes and all related structures Neck: Neck: Yes normal visual inspection, Yes full ROM, Yes no meningeal signs, Yes trachea midline and Yes supple Chest: Other: appreciable drain w/ some serosanguineous fluid; bandage clean, dry, intact Resp: Other: appreciable rales and rhonchi throughout; no appreciable wheezing Cardio: Rate: regular rate Rhythm: regular rhythm GI: Inspection: Yes normal to inspection, No Abdominal wall edema and No distended Palpation (GI): Soft to palpation, not firm, nontender, no guarding and not rigid Skin: General skin exam: no rashes or lesions noted Neuro: General: tone normal, moves all extremities and no meningeal signs Extrem: Other: appreciable 2+ pitting edema to bilateral shins General: Yes normal to inspection, Yes full ROM and Yes capillary refill normal Psych: Other: intermittent agitation Objective Data Labs 12/20/24 05:57 12/20/24 05:57 Labs: Laboratory Results - last 24 hr 12/19/24 12/19/24 12/19/24 05:39 09:00 11:12 WBC RBC Hgb Hct MCV MCH MCHC RDW Plt Count MPV Immature Gran % (Auto) Neut % (Auto) Lymph % (Auto) [place] % (Auto) Eos % (Auto) Baso % (Auto) Lymph # (Auto) [place] # (Auto) Eos # (Auto) Baso # (Auto) Abs Immat Gran (auto) Absolute Neuts (auto) Absolute Nucleated RBC Nucleated RBC % (auto) O2 Saturation ABG pH at Pt Temp ABG pCO2 at Pt Temp ABG pO2 at Pt Temp ABG HCO3 ABG Base Excess (Actual) Sodium Potassium Chloride Carbon Dioxide Anion Gap BUN Creatinine Estim Creat Clear Calc Estimated GFR POC Glucose 206 H Random Glucose Calcium Phosphorus Magnesium Iron 40 TIBC 147 L % Saturation 27 Unsat Iron Binding 107 Troponin I High Sens 8.6 D Albumin Pericard WBC Pericard RBC Pericard Lymphocytes Pericard Monocytes Pericard Other Cells Pericard Total Protein Pericardial Albumin Pericardial Glucose 12/19/24 12/19/24 12/19/24 16:21 18:25 21:16 WBC RBC Hgb Hct MCV MCH MCHC RDW Plt Count MPV Immature Gran % (Auto) Neut % (Auto) Lymph % (Auto) [place] % (Auto) Eos % (Auto) Baso % (Auto) Lymph # (Auto) [place] # (Auto) Eos # (Auto) Baso # (Auto) Abs Immat Gran (auto) Absolute Neuts (auto) Absolute Nucleated RBC Nucleated RBC % (auto) O2 Saturation ABG pH at Pt Temp ABG pCO2 at Pt Temp ABG pO2 at Pt Temp ABG HCO3 ABG Base Excess (Actual) Sodium Potassium Chloride Carbon Dioxide Anion Gap BUN Creatinine Estim Creat Clear Calc Estimated GFR POC Glucose 166 H 157 H Random Glucose Calcium Phosphorus Magnesium Iron TIBC % Saturation Unsat Iron Binding Troponin I High Sens Albumin Pericard WBC 293 Pericard RBC 67 Pericard Lymphocytes 4 Pericard Monocytes 3 Pericard Other Cells 93 Pericard Total Protein 3.4 Pericardial Albumin 2.5 Pericardial Glucose 149 12/20/24 12/20/24 12/20/24 04:05 05:57 07:36 WBC 9.6 RBC 3.80 L Hgb 8.8 L Hct 25.9 L MCV 68.2 L MCH 23.2 L MCHC 34.0 RDW 15.3 Plt Count 275 MPV 10.0 Immature Gran % (Auto) 0.7 H Neut % (Auto) 81.5 H Lymph % (Auto) 9.7 L [place] % (Auto) 6.3 Eos % (Auto) 1.5 Baso % (Auto) 0.3 Lymph # (Auto) 0.9 L [place] # (Auto) 0.6 Eos # (Auto) 0.1 Baso # (Auto) 0.0 Abs Immat Gran (auto) 0.07 H Absolute Neuts (auto) 7.8 Absolute Nucleated RBC 0.020 H Nucleated RBC % (auto) 0.2 O2 Saturation 83.0 ABG pH at Pt Temp 7.49 H ABG pCO2 at Pt Temp 32 ABG pO2 at Pt Temp 55 L ABG HCO3 25 ABG Base Excess (Actual) 2.4 Sodium 143 Potassium 2.9 L* Chloride 113 H Carbon Dioxide 23 Anion Gap 10 L BUN 12 Creatinine 0.58 Estim Creat Clear Calc 94.3 Estimated GFR > 60 POC Glucose 144 H Random Glucose 136 H Calcium 8.6 D Phosphorus 2.2 L Magnesium 1.7 Iron TIBC % Saturation Unsat Iron Binding Troponin I High Sens Albumin 3.1 L Pericard WBC Pericard RBC Pericard Lymphocytes Pericard Monocytes Pericard Other Cells Pericard Total Protein Pericardial Albumin Pericardial Glucose Microbiology Microbiology Results: Microbiology 12/19/24 18:25 Pericardial Fluid Gram Stain - Final 12/17/24 08:52 Blood - Venous Blood Culture - Preliminary No growth after 48 hours. 12/17/24 08:42 Blood - Venous Blood Culture - Preliminary No growth after 48 hours. Progress Note: A&P Assessment and plan (1) Acute respiratory failure with hypoxia: Status: Acute (2) Pneumonia: Status: Acute (3) COPD (chronic obstructive pulmonary disease): Status: Acute (4) Pericardial effusion with cardiac tamponade: Status: Acute Plan Patient is a 59 Y F w/ schizoaffective disorder, hyperlipidemia, hypothyroidism, and COPD presenting to ED from [facility] facility on 12/17 w/ encephalopathy, found to be in acute hypoxic respiratory failure thought to be d/t pneumonia, admitted medicine; on 12/19, patient developed worsening acute hypoxic respiratory failure, found to have cardiac tamponade, s/p pericardial drain w/ IR N: schizoaffective disorder, intermittent agitation, dexmedetomidine gtt, wean as tolerated, home antipsychotic regimen when tolerating PO CV: cardiac tamponade, s/p pericardial drain 12/19, to monitor output, follow-up fluid studies R: acute hypoxic respiratory failure, likely d/t aspiration pneumonia, HFNC, wean as tolerated GI: NPO in setting of likely aspiration, speech/swallow evaluation when appropriate : no acute issues H: no acute issues; chemical DVT prophylaxis ID: pneumonia, ceftriaxone/azithromycin E: hypothyroidism, home levothyroxine P: schizoaffecitive disorder, home antipsychotic regimen when tolerating PO Quality Stroke Does the patient have a stroke diagnosis?: No VTE Prior VTE?: No VTE Risk Level:: Medical - moderate - high VTE Device Contraindication: N/A - Device Ordered VTE Drug Contraindication: N/A - Med Ordered
[2024-12-20] MEDS: Furosemide 20 MG/2 ML VIAL IVPUSH (10:10)
--- NOTE | 2024-12-20 11:09 | PM.PNCARD ---
Subjective Subjective Date of Service: 12/20/24 Principal diagnosis: Pericardial tamponade Interval history: Patient is status post pericardial drain in only 180 cc of fluid was removed although there was significant hemodynamic improvement with improved blood pressure as well as reduction in heart rate suggestive of improved tamponade physiology after drainage. However overnight patient had another aspiration event and is currently still requiring oxygen. No arrhythmias noted. Pericardial drain still in place. Echocardiogram done today shows trace to small pericardial effusion with suggestion of constrictive physiology Review of Systems Review of Systems Yes Unobtainable due to mental status Physical Exam Vital Signs: Last Vital Signs Temp 97.6 F 12/20/24 08:00 Pulse 75 12/20/24 11:03 Resp 39 H 12/20/24 11:03 BP 159/70 H 12/20/24 10:10 Pulse Ox 90 L 12/20/24 09:00 O2 Del Method High Flow Nasal Cannula 12/20/24 09:00 O2 Flow Rate 50 12/20/24 09:00 FiO2 70 12/20/24 09:00 BMI result Body Mass Index 26.6 Const General: alert, awake and in distress mild and respiratory Nutritional Appearance: average body habitus Neck Neck: Yes trachea midline, Yes supple and Yes other (Kussmauls sign) Resp Effort & Inspection: decreased respiratory effort Auscultation: no rales, diminished lung sounds and bronchovesicular breath sounds Cardio Jugular venous distension: other (Kussmauls sign) Heart sounds: S1 normal heart sound present, S2 normal heart sound present, no click, no gallops and no murmurs GI Auscultation: normal bowel sounds Neuro General: moves all extremities Extrem General: Yes no clubbing, cyanosis or edema Objective Labs and Meds 12/20/24 05:57 12/20/24 05:57 Lab results: Laboratory Results - last 24 hr 12/19/24 12/19/24 12/19/24 05:39 11:12 16:21 WBC RBC Hgb Hct MCV MCH MCHC RDW Plt Count MPV Immature Gran % (Auto) Neut % (Auto) Lymph % (Auto) [place] % (Auto) Eos % (Auto) Baso % (Auto) Lymph # (Auto) [place] # (Auto) Eos # (Auto) Baso # (Auto) Abs Immat Gran (auto) Absolute Neuts (auto) Absolute Nucleated RBC Nucleated RBC % (auto) O2 Saturation ABG pH at Pt Temp ABG pCO2 at Pt Temp ABG pO2 at Pt Temp ABG HCO3 ABG Base Excess (Actual) Sodium Potassium Chloride Carbon Dioxide Anion Gap BUN Creatinine Estim Creat Clear Calc Estimated GFR POC Glucose 206 H 166 H Random Glucose Calcium Phosphorus Magnesium Iron 40 TIBC 147 L % Saturation 27 Unsat Iron Binding 107 Albumin Pericard WBC Pericard RBC Pericard Lymphocytes Pericard Monocytes Pericard Other Cells Pericard Total Protein Pericardial Albumin Pericardial Glucose 12/19/24 12/19/24 12/20/24 18:25 21:16 04:05 WBC RBC Hgb Hct MCV MCH MCHC RDW Plt Count MPV Immature Gran % (Auto) Neut % (Auto) Lymph % (Auto) [place] % (Auto) Eos % (Auto) Baso % (Auto) Lymph # (Auto) [place] # (Auto) Eos # (Auto) Baso # (Auto) Abs Immat Gran (auto) Absolute Neuts (auto) Absolute Nucleated RBC Nucleated RBC % (auto) O2 Saturation 83.0 ABG pH at Pt Temp 7.49 H ABG pCO2 at Pt Temp 32 ABG pO2 at Pt Temp 55 L ABG HCO3 25 ABG Base Excess (Actual) 2.4 Sodium Potassium Chloride Carbon Dioxide Anion Gap BUN Creatinine Estim Creat Clear Calc Estimated GFR POC Glucose 157 H Random Glucose Calcium Phosphorus Magnesium Iron TIBC % Saturation Unsat Iron Binding Albumin Pericard WBC 293 Pericard RBC 67 Pericard Lymphocytes 4 Pericard Monocytes 3 Pericard Other Cells 93 Pericard Total Protein 3.4 Pericardial Albumin 2.5 Pericardial Glucose 149 12/20/24 12/20/24 05:57 07:36 WBC 9.6 RBC 3.80 L Hgb 8.8 L Hct 25.9 L MCV 68.2 L MCH 23.2 L MCHC 34.0 RDW 15.3 Plt Count 275 MPV 10.0 Immature Gran % (Auto) 0.7 H Neut % (Auto) 81.5 H Lymph % (Auto) 9.7 L [place] % (Auto) 6.3 Eos % (Auto) 1.5 Baso % (Auto) 0.3 Lymph # (Auto) 0.9 L [place] # (Auto) 0.6 Eos # (Auto) 0.1 Baso # (Auto) 0.0 Abs Immat Gran (auto) 0.07 H Absolute Neuts (auto) 7.8 Absolute Nucleated RBC 0.020 H Nucleated RBC % (auto) 0.2 O2 Saturation ABG pH at Pt Temp ABG pCO2 at Pt Temp ABG pO2 at Pt Temp ABG HCO3 ABG Base Excess (Actual) Sodium 143 Potassium 2.9 L* Chloride 113 H Carbon Dioxide 23 Anion Gap 10 L BUN 12 Creatinine 0.58 Estim Creat Clear Calc 94.3 Estimated GFR > 60 POC Glucose 144 H Random Glucose 136 H Calcium 8.6 D Phosphorus 2.2 L Magnesium 1.7 Iron TIBC % Saturation Unsat Iron Binding Albumin 3.1 L Pericard WBC Pericard RBC Pericard Lymphocytes Pericard Monocytes Pericard Other Cells Pericard Total Protein Pericardial Albumin Pericardial Glucose Imaging Radiologist's impression: Impressions Chest X-Ray 12/20/24 07:02 IMPRESSION: Left chest tube in place. No pneumothorax. Coarse increased interstitial markings. Electronically signed by: Wilfred Soliz MD 12/20/2024 07:26 AM EDT RP Progress Note: A&P Assessment and plan (1) Pericardial effusion with cardiac tamponade: Status: Acute Assessment and Plan: Patient status post drainage of pericardial effusion with only moderate amount of fluid drained with improvement in his hemodynamics most suggestive of acute pericardial effusion with tamponade physiology. Today's echo shows residual small to trace pericardial effusion with constrictive physiology again suggestive of most likely inflammatory pericardial effusion possibly post viral. I would suggest to start on treatment for pericardial information with colchicine 0.6 mg b.i.d. as well as indomethacin 50 mg b.i.d. with GI prophylaxis. Given her overall respiratory status and still persistent infusion in his okay to leave the drain in for next couple of days and follow-up limited echocardiogram in couple of days and then lead to drain removal. Patient is still very noncooperative with overall treatment plan. Overall prognosis is guarded. Plan discussed with Dr. Nelson Will follow in couple of days. Time Spent With Patient Time: Total time managing care of this patient today ____ minutes. Progress Note: Quality Stroke Does the patient have a stroke diagnosis?: No Procedures Date of Service Date of Service: 12/20/24
[2024-12-20 11:40] LABS: Glucose, Whole Blood 146 mg/dL (60-115)
--- NOTE | 2024-12-20 13:48 | MHC.CM.PN ---
Pt s/p pericardial drain for tx of tamponade. Pt [facility] resident [facility] and will return when medically stable via BLS
[2024-12-20 17:26] LABS: Glucose, Whole Blood 141 mg/dL (60-115)
--- NOTE | 2024-12-20 18:32 | MHC.SL.SWA ---
Speech Pathologist Impression: Risk of Aspiration Risk of Aspiration Due to: Respiratory Status Dysphasia Diet Status: Start on NDD2 Liquid Consistency and Strategies for Safe Swallow: Liquid Intake Recommendation: Thin Liquid Intake Strategies: No Straws Solid Food Consistency: Dietary Recommendations: Grnd/Mech Altered (NDD2) Additional Modifications to Solid Foods: Recommend UPGRADE to GROUND/MECH ALTERED (NDD2) solids and THIN liquids, pills CRUSHED in PUREE. Patient to be directly supervised and closely monitored at meals, will need 1:1 feeding while in soft restraints. Discontinue feeding if patient evidences any overt s/s of aspiration. Oral Medication Intake: Crushed with Puree Please contact the pharmacy regarding appropriate crushable or liquid drug formulations that are available whenever modified delivery is recommended. Supervision While Eating and Drinking for Safe Swallow: Direct Supervision (1:1) Recommendation for Speech: Inpatient Speech Therapy Comment: CLINICAL CYTOGENETICIST SCIENTIST will continue to follow, re-assess for potential upgrade when appropriate Frequency/Duration: M-F while inpatient Date Range for Service Req: Timeline to reassess: Astrochemist Clinican/Clinical Fellow: No Supervisory Statement: I have reviewed and agree with the student/clinical fellow's documentation: N/A Speech Language Pathologist: Lola Johnson M.A., CCC-CLINICAL CYTOGENETICIST SCIENTIST
[2024-12-20] MEDS: dexmedeTOMIDine HCL/NS 400 MCG/100 ML PLAST..BAG 23.8 MCG IVCONT (22:59)
[2024-12-20 23:35] LABS: Glucose, Whole Blood 170 mg/dL (60-115)
[2024-12-21] VITALS (34 sets, daily range): BP systolic 117–157; BP diastolic 50–93; PULSE 63–108; RESP 15–41; TEMP 36.4–37.5; O2SAT 90–97; BMI 28.5
[2024-12-21] MEDS: Furosemide 20 MG/2 ML VIAL IVPUSH ×2 (01:12→17:39)
--- NOTE | 2024-12-21 01:32 | HO.SKINPHOTO ---
Location: Left medial lower buttocks open area
[2024-12-21] MEDS: dexmedeTOMIDine HCL/NS 400 MCG/100 ML PLAST..BAG 25.5 MCG IVCONT ×6 (02:46→21:58)
[2024-12-21 05:42] LABS: MANUAL DIFF FLAG NO
[2024-12-21 05:44] LABS: Hematocrit 29.2 % (37.0-47.0); Hemoglobin 10.2 g/dl (12.0-16.0); Imm Gran Abs Auto 0.05 X10*3/uL (0.00-0.03); Imm Gran Pct Auto 0.5 % (0.0-0.4); Lymphocytes Absolute Auto 0.7 X10*3/uL (1.2-4.9); Mean Corpuscular HGB Conc 34.9 g/dl (31.0-35.0); Mean Corpuscular Hemoglobin 23.3 pg (27.0-33.0); Mean Corpuscular Volume 66.8 fL (80.0-98.0); NRBC Abs Auto 0.000 X10*3/uL (0.0-0.012); NRBC Pct Auto 0.0 /100WBC (0.0-0.2); Platelet Count 342 X10*3/uL (160-400); Red Blood Count 4.37 X10*6/uL (4.20-5.50); White Blood Count 9.6 X10*3/uL (4.8-10.8)
[2024-12-21 05:45] LABS: Venous Blood Gas Refer to POC result
[2024-12-21 05:46] LABS: VBG HCO3 24 mmol/L (22-26); VBG O2 % Saturation 87.0 %
[2024-12-21 06:03] LABS: Anion Gap 15 (12-20); Blood Urea Nitrogen 13 mg/dL (9-16); Calcium 9.0 mg/dL (8.4-10.2); Carbon Dioxide 24 mmol/L (22-29); Chloride 108 mmol/L (96-108); Creatinine Clr Calc Pharmacy 92.7; Estimated Glomerular Filt Rate > 60; Magnesium 1.6 mg/dL (1.6-2.6); Potassium 2.5 mmol/L (3.3-5.1); Sodium 144 mmol/L (135-145)
--- NOTE | 2024-12-21 06:51 | PC.NURSE ---
Assumed care of this patient at ~19:00. Patient remains in the ICU on a precedex gtt, titrated per MAR. 1:[address] as patient continues to actively endorse SI. SENIOR COMMERCIAL LOAN OFFICER and RN supervisor rubber covering made aware. Pt remains in bilateral soft wrist restraints as this patient continues to attempt to pull at her lines/devices including HFNC and pericardial drain on release for ROM and care, despite redirection and reorientation attempts.?+radial and distal pulses,?+cms.?Drain (AUGUSTINE) remains intact and patent of small light serous/yellow output. Pt NPO with okay for meds in applesauce with 1:1 feed and aspiration precautions, per SENIOR COMMERCIAL LOAN OFFICER Peter verbal order. Patient tolerated these without issues. Scheduled ibuprofen reviewed with SENIOR COMMERCIAL LOAN OFFICER; patient had received this medication already this admission earlier today without any issue. SENIOR COMMERCIAL LOAN OFFICER verbal orders to continue with administration of medication per order. Medication administered without issue or incidence.?Lasix IVP x1 given per SENIOR COMMERCIAL LOAN OFFICER order/MAR for bibasilar crackles, +effect.?Patient continues with urinary retention requiring initially straight cath, later placement of IUC per SENIOR COMMERCIAL LOAN OFFICER verbal order after high volume PVR after spontaneous void (voided 600ml, PVR 461ml). Catheter care provided. Wound care consult placed for small open area to buttocks. Assisted with q2hr turning and repositioning. Critical potassium back this morning, reported to covering SENIOR COMMERCIAL LOAN OFFICER. Orders for IV potassium repletions. Maintenance Painter Apprentice called pharmacy x2 with request made for order verification; order remains unverified at this time 06:50.?? Bed low/locked, safety measures and aspiration precautions in place.? Please see shift assessments, tasks in worklist, and MAR for full details. Plan of care ongoing.?
--- NOTE | 2024-12-21 07:05 | HE.PHANOTE ---
Vancomycin addendum: Level after basilio 3 doses came back at 15.4, will maintain current dose of 1000 mg q 12 hours and recheck a trough after 3 more doses, estimated AUC 501
[2024-12-21] MEDS: Potassium Chloride/H20 10 MEQ/100 ML PIGGYBACK 100 MEQ IV ×4 (07:31→12:13)
[2024-12-21] MEDS: 0.9 % Sodium Chloride Flush 3 ML SYRINGE IVFLUSH ×3 (07:31→21:29)
[2024-12-21] MEDS: Albuterol/Iprat 2.5/0.5MG 3 ML AMPUL.NEB INHALE ×4 (07:41→19:01)
[2024-12-21] MEDS: Fluticasone/Vilanterol 200/25 BLST.W.DEV 1 PUFF INHALE (07:41)
[2024-12-21] MEDS: Potassium Chloride Packet 20 MEQ PACKET 40 MEQ PO (09:24)
--- NOTE | 2024-12-21 09:55 | PM.CCPN ---
Subjective Subjective Date of Service: 12/21/24 Interval History: no significant overnight events Critical Care Time (minutes): 60 Physical Exam Vital Signs: Vital Signs: Last Vital Signs Temp 99.1 F 12/21/24 09:00 Pulse 108 H 12/21/24 09:00 Resp 32 H 12/21/24 09:00 BP 125/74 12/21/24 09:00 Pulse Ox 90 L 12/21/24 09:00 O2 Del Method High Flow Nasal C annula, Oxymask 12/21/24 09:00 O2 Flow Rate 50 12/21/24 09:00 FiO2 75 12/21/24 09:00 BMI result Body Mass Index 28.5 Const: General: cooperative, healthy appearing, no acute distress, well developed, alert, awake and Physically active Orientation/consciousness: patient oriented x3 HEENT: Head: Yes normal to inspection, Yes normocephalic and Yes atraumatic Eyes: General: appearance normal, both eyes and all related structures Neck: Neck: Yes normal visual inspection, Yes full ROM, Yes no meningeal signs, Yes trachea midline and Yes supple Chest: Chest palpation & inspection: normal inspection of the chest Resp: Other: some appreciable rhonchi; no appreciable overt rales, wheezing Effort & Inspection: normal respiratory effort GI: Inspection: Yes normal to inspection, No Abdominal wall edema and No distended Palpation (GI): Soft to palpation, not firm, nontender, no guarding and not rigid Skin: General skin exam: no rashes or lesions noted Neuro: General: patient oriented x3, tone normal, moves all extremities, no meningeal signs and no focal motor deficits Extrem: Other: appreciable 1+ pitting edema to bilateral shins General: Yes normal to inspection, Yes full ROM and Yes capillary refill normal Psych: Affect: Irritable affect present Objective Data Labs 12/21/24 05:38 12/21/24 05:38 Labs: Laboratory Results - last 24 hr 12/20/24 12/20/24 12/20/24 11:37 17:20 23:20 WBC RBC Hgb Hct MCV MCH MCHC RDW Plt Count MPV Immature Gran % (Auto) Neut % (Auto) Lymph % (Auto) [place] % (Auto) Eos % (Auto) Baso % (Auto) Lymph # (Auto) [place] # (Auto) Eos # (Auto) Baso # (Auto) Abs Immat Gran (auto) Absolute Neuts (auto) Absolute Nucleated RBC Nucleated RBC % (auto) VBG pH VBG pCO2 VBG pO2 VBG HCO3 VBG O2 Saturation VBG Base Excess Sodium Potassium Chloride Carbon Dioxide Anion Gap BUN Creatinine Estim Creat Clear Calc Estimated GFR POC Glucose 146 H 141 H 170 H Random Glucose Calcium Phosphorus Magnesium Random Vancomycin 12/21/24 12/21/24 05:38 05:42 WBC 9.6 RBC 4.37 Hgb 10.2 L Hct 29.2 L MCV 66.8 L MCH 23.3 L MCHC 34.9 RDW 15.4 Plt Count 342 MPV 9.9 Immature Gran % (Auto) 0.5 H Neut % (Auto) 83.0 H Lymph % (Auto) 7.4 L [place] % (Auto) 5.6 Eos % (Auto) 3.0 Baso % (Auto) 0.5 Lymph # (Auto) 0.7 L [place] # (Auto) 0.5 Eos # (Auto) 0.3 Baso # (Auto) 0.1 Abs Immat Gran (auto) 0.05 H Absolute Neuts (auto) 8.0 Absolute Nucleated RBC 0.000 Nucleated RBC % (auto) 0.0 VBG pH 7.55 H VBG pCO2 28 VBG pO2 57 VBG HCO3 24 VBG O2 Saturation 87.0 VBG Base Excess 3.4 Sodium 144 Potassium 2.5 L* Chloride 108 Carbon Dioxide 24 Anion Gap 15 BUN 13 Creatinine 0.61 Estim Creat Clear Calc 92.7 Estimated GFR > 60 POC Glucose Random Glucose 179 H Calcium 9.0 Phosphorus 1.8 L Magnesium 1.6 Random Vancomycin 15.4 Microbiology Microbiology Results: Microbiology 12/19/24 18:25 Pericardial Fluid Gram Stain - Final 12/19/24 18:25 Pericardial Fluid Anaerobic Culture - Preliminary No growth to date. 12/19/24 18:25 Pericardial Fluid Body Fluid Culture - Preliminary No growth to date. 12/17/24 08:52 Blood - Venous Blood Culture - Preliminary No growth after 48 hours. 12/17/24 08:42 Blood - Venous Blood Culture - Preliminary No growth after 48 hours. Progress Note: A&P Assessment and plan (1) Acute respiratory failure with hypoxia: Status: Acute (2) Pneumonia: Status: Acute (3) COPD (chronic obstructive pulmonary disease): Status: Acute (4) Pericardial effusion with cardiac tamponade: Status: Acute Plan Patient is a 59 Y F w/ schizoaffective disorder, hyperlipidemia, hypothyroidism, and COPD [facility]/ encephal[facility], found to be in acute hypoxic respiratory failure thought to be d/t pneumonia, admitted medicine; on 12/19, patient developed worsening acute hypoxic respiratory failure, found to have cardiac tamponade, s/p pericardial drain w/ IR N: schizoaffective disorder, intermittent agitation, dexmedetomidine gtt, wean as tolerated, home antipsychotic regimen when tolerating PO CV: cardiac tamponade, likely d/t viral pericarditis, s/p pericardial drain 12/19, to monitor output R: acute hypoxic respiratory failure, likely d/t aspiration pneumonia, HFNC, wean as tolerated GI: judicious diet in setting of recurrent aspiration : no acute issues H: no acute issues; chemical DVT prophylaxis ID: pneumonia, ceftriaxone/azithromycin E: hypothyroidism, home levothyroxine P: schizoaffecitive disorder, home antipsychotic regimen when tolerating PO S: unclear if has contacts, to engage case management Quality Stroke Does the patient have a stroke diagnosis?: No VTE Prior VTE?: No VTE Risk Level:: Medical - moderate - high VTE Device Contraindication: N/A - Device Ordered VTE Drug Contraindication: N/A - Med Ordered
--- NOTE | 2024-12-21 10:30 | PC.NURSE ---
Received call from Sue Thornton, patient's sister, inquiring about patient. Unable to give Sue any information on patient as she was not listed in the chart, also unable to verify with patient. Patient's sister stated she received a call from [facility] about patient being in the hospital. Patient's sister was advised to call [facility] and have them provide information on wash crew person(s) for patient if such exists in the chart at [facility]. Sue left her phone number in case we are able to verify that she is patient's contact. [phone]
[2024-12-21] MEDS: Potassium Phosphate/NS 15 MMOL/250 ML PLAST..BAG 62.5 MMOL IV (11:48)
[2024-12-21 12:03] LABS: Glucose, Whole Blood 163 mg/dL (60-115)
--- NOTE | 2024-12-21 14:30 | PC.NURSE ---
Assumed care at ~07:00. Patient remains in the ICU on a precedex gtt, rt 1.[address] as patient continues to actively endorse SI. Pt remains in bilateral soft wrist restraints due to multiple attempts of pulling on IV lines and drain. Restraints released for ROM and care. ?Drain (AUGUSTINE) remains intact and patent of small light serous/yellow output. Patient's diet changed from NPO to Diabetic pureed, nectar thick, PO meds crushed given in applesauce, patient is able to swallow small pills when not able to crush (Colcrys given whole) Patient needs 1 to 1 feed due to high risk of aspiration. Scheduled ibuprofen given after confirming with provider. .?Gordillo cath in place draining pale yellow urine. Catheter care provided. Patient c/o dry mouth, thicken liquid given with a spoon, tolerated well. Moisturizer used for dry/cracked lips. Assisted with q2hr turning and repositioning, patient able to roll with minimal assistance for repositioning. Report given to Kelsi at 1415.
[2024-12-21 17:28] LABS: Glucose, Whole Blood 155 mg/dL (60-115)
[2024-12-21 23:41] LABS: Anion Gap 15 (12-20); Blood Urea Nitrogen 11 mg/dL (9-16); Calcium 8.5 mg/dL (8.4-10.2); Carbon Dioxide 22 mmol/L (22-29); Chloride 111 mmol/L (96-108); Creatinine Clr Calc Pharmacy 94.2; Estimated Glomerular Filt Rate > 60; Magnesium 1.5 mg/dL (1.6-2.6); Potassium 2.6 mmol/L (3.3-5.1); Sodium 145 mmol/L (135-145)
[2024-12-22] VITALS (57 sets, daily range): BP systolic 78–175; BP diastolic 31–101; PULSE 70–147; RESP 12–34; TEMP 32–38.6; O2SAT 84–99; BMI 27.2
[2024-12-22] MEDS: Potassium Chloride Packet 20 MEQ PACKET 40 MEQ PO (00:01)
[2024-12-22] MEDS: Potassium Chloride/H20 10 MEQ/100 ML PIGGYBACK 100 MEQ IV ×4 (00:12→03:18)
[2024-12-22 01:10] LABS: ABG HCO3 23 mmol/L (22-26); ABG O2 % Saturation 86.0 %
--- NOTE | 2024-12-22 01:30 | W.PM.CCHP ---
Procedures Date of Service Date of Service: 12/22/24 Intubation Consent for Procedure: Emergent-no informed consent obtained Time out performed: Yes Sedative: propofol Mg given: 100 Paralytic: rocuronium Mg given: 20 Laryngoscope: fiber optic video scope ET tube size: 7 Tube secured depth (cm): 21 Tube secured location: lips Tube placement confirmation: visualized tube passing through cords, no breath sounds over epigastrium and confirmation by capnometry Patient tolerated procedure: well Intubation complications: other (tongue and epiglottis edematous)
--- NOTE | 2024-12-22 01:30 | PM.CCN ---
Critical Care Event Note Summary Date of Service: 12/22/24 Code activated: No Narrative: This case had a high probability of a clinically significant, sudden, or life threatening deterioration of this patient's condition which required my full and direct attention, intervention and personal management. Critical Care Time (minutes): 60 Comment: Pt with cardiac tamponade s/p pericardial drain 12/19, schizoaffective disorder, intermittent agitation on dexmedetomidine gtt in addition to home antipsychotic regimen, on HFNC for acute hypoxic respiratory failure, likely d/t aspiration pneumonia. The pt became tachycardic, and tachypneic in 40?s with shallow breaths. STAT labs revealed hypokalemia. The pt was agitated, uncooperative and was given midazolam to obtain IV access. She became somnolent and was grossly hypoventilating likely d/t over sedation. She was emergently intubated. Blood cultures obtained. Lactic 1.5. No hypotension. Sepsis unlikely. PT is already on broad spectrum antibiotics. The patient was unable to consent due to altered mental status and lethargy. No contact information available.? Case discussed with Dr. Nelson by telephone.
[2024-12-22] MEDS: Chlorhexidine Gluc Oral Rinse 15 ML MOUTHWASH BUCCAL ×4 (02:21→19:47)
[2024-12-22] MEDS: dexmedeTOMIDine HCL/NS 400 MCG/100 ML PLAST..BAG 25.5 MCG IVCONT (02:23)
[2024-12-22 02:40] LABS: ABG HCO3 22 mmol/L (22-26); ABG O2 % Saturation 100.0 %
[2024-12-22] MEDS: fentaNYL citrate/NS 1,000 MCG/100 ML PLAST..BAG 5 MCG IVCONT (03:01)
[2024-12-22 03:04] LABS: Albumin Level 3.1 g/dL (3.5-5.0)
--- NOTE | 2024-12-22 04:53 | PC.NURSE ---
Assumed care at 1900. Upon assessment, patient alert but confused, unsure of situation or time. Able to follow simple commands but requiring frequent redirection?and still endorsing SI. 1-1 sitter at bedside for safety. SR/ST on tele, frequent PACs. Approx 2300, patient with brief run on nonsustained VTach on tele, RADHA Green aware. Stat labs ordered, see results. Pericardial drain in place, draining small amount of serous fluid. Patient on HFNC, 45L and 65% FiO2, tachypneic and diminished throughout. Abdomen soft and large, thickened liquids and 1-1 feed with puree food. Gordillo catheter in place and patent for urinary retention, draining clear yellow urine. Skin pale and warm, with blanchable redness to coccyx and left sacrum. Foams replaced, clean dry and intact. Patient able to ZABALA, frequently scooting self in bed. Soft wrist restraints in place for safety of drains and lines, see physical flowsheet. Approx 0100, patient complaining of pain with IV flush, educated patient on removal and need for new IV access. Patient agitated and uncooperative despite restraints and sitter at bedside, one time dose versed administered per MAY. Patient became minimally responsive, very difficult to arouse. ABG obtained, see results. Per RADHA Green, decision made to intubate. Patient emergently intubated with #7.0 ETT, initially 25 cm @ the lip. Diminished breath sounds noted by this RN and RT to left lung gamboa, per RADHA Green ETT pulled back to 21 cm?@ lip with good effect, pCXR to confirm placement. Patient provided with full bed bath, repeat ABG and labs obtained, and repositioned Q2HR to maintain?skin integrity. Bed locked in lowest position, bed alarm on.?
[2024-12-22 05:06] LABS: VBG HCO3 22 mmol/L (22-26); VBG O2 % Saturation 92.0 %
[2024-12-22 05:11] LABS: Venous Blood Gas Refer to POC result
[2024-12-22 05:31] LABS: MANUAL DIFF FLAG NO
[2024-12-22 05:35] LABS: Hematocrit 27.6 % (37.0-47.0); Hemoglobin 9.2 g/dl (12.0-16.0); Imm Gran Abs Auto 0.05 X10*3/uL (0.00-0.03); Imm Gran Pct Auto 0.6 % (0.0-0.4); Lymphocytes Absolute Auto 0.7 X10*3/uL (1.2-4.9); Mean Corpuscular HGB Conc 33.3 g/dl (31.0-35.0); Mean Corpuscular Hemoglobin 22.6 pg (27.0-33.0); Mean Corpuscular Volume 67.8 fL (80.0-98.0); NRBC Abs Auto 0.000 X10*3/uL (0.0-0.012); NRBC Pct Auto 0.0 /100WBC (0.0-0.2); Platelet Count 326 X10*3/uL (160-400); Red Blood Count 4.07 X10*6/uL (4.20-5.50); White Blood Count 8.3 X10*3/uL (4.8-10.8)
[2024-12-22 05:55] LABS: Anion Gap 13 (12-20); Blood Urea Nitrogen 13 mg/dL (9-16); Calcium 8.5 mg/dL (8.4-10.2); Carbon Dioxide 20 mmol/L (22-29); Chloride 113 mmol/L (96-108); Creatinine Clr Calc Pharmacy 90.7; Estimated Glomerular Filt Rate > 60; Magnesium 2.0 mg/dL (1.6-2.6); Potassium 4.2 mmol/L (3.3-5.1); Sodium 142 mmol/L (135-145)
[2024-12-22 07:44] LABS: ABG Refer to POC result
[2024-12-22 07:44] LABS: ABG Refer to POC result
[2024-12-22] MEDS: Albuterol/Iprat 2.5/0.5MG 3 ML AMPUL.NEB INHALE ×4 (07:48→20:01)
[2024-12-22] MEDS: 0.9 % Sodium Chloride Flush 3 ML SYRINGE IVFLUSH ×3 (08:31→23:06)
[2024-12-22] MEDS: Furosemide 20 MG/2 ML VIAL IVPUSH ×2 (08:32→18:19)
--- NOTE | 2024-12-22 09:19 | PM.CCPN ---
Subjective Subjective Date of Service: 12/22/24 Interval History: worsening agitation 12/21 PM necessitating midazolam, though unfortunately patient increasingly somnolent w/ worsening respiratory failure, intubated w/o complication; now hypotensive, likely d/t sedation, on/off vasopressors; attempts to update contacts unfortunately unsuccessful Critical Care Time (minutes): 60 Physical Exam Vital Signs: Vital Signs: Last Vital Signs Temp 98.6 F 12/22/24 09:00 Pulse 73 12/22/24 09:18 Resp 25 H 12/22/24 09:00 BP 81/51 L 12/22/24 09:18 Pulse Ox 90 L 12/22/24 09:00 O2 Del Method Mechanical Ventil ation 12/22/24 09:00 O2 Flow Rate 45 12/22/24 01:00 FiO2 55 12/22/24 09:00 BMI result Body Mass Index 27.2 Const: Other: intubated, sedated; some appreciable spontaneous movements General: no acute distress and well developed HEENT: Head: Yes normal to inspection, Yes normocephalic and Yes atraumatic Eyes: General: appearance normal, both eyes and all related structures Neck: Neck: Yes normal visual inspection, Yes full ROM, Yes no meningeal signs, Yes trachea midline and Yes supple Chest: Chest palpation & inspection: normal inspection of the chest Resp: Other: some appreciable rhonchi; no appreciable rales, wheezing Effort & Inspection: normal respiratory effort Cardio: Rate: regular rate Rhythm: regular rhythm GI: Inspection: Yes normal to inspection, No Abdominal wall edema and No distended Palpation (GI): Soft to palpation, not firm, nontender, no guarding and not rigid Skin: General skin exam: no rashes or lesions noted Neuro: General: tone normal and no meningeal signs Extrem: Other: appreciable trace pitting edema to bilateral shins General: Yes normal to inspection, Yes full ROM and Yes capillary refill normal Psych: Other: unable to assess Objective Data Labs 12/22/24 04:56 12/22/24 04:56 Labs: Laboratory Results - last 24 hr 12/21/24 12/21/24 12/21/24 12:00 17:22 23:14 WBC RBC Hgb Hct MCV MCH MCHC RDW Plt Count MPV Immature Gran % (Auto) Neut % (Auto) Lymph % (Auto) [place] % (Auto) Eos % (Auto) Baso % (Auto) Lymph # (Auto) [place] # (Auto) Eos # (Auto) Baso # (Auto) Abs Immat Gran (auto) Absolute Neuts (auto) Absolute Nucleated RBC Nucleated RBC % (auto) O2 Saturation ABG pH at Pt Temp ABG pCO2 at Pt Temp ABG pO2 at Pt Temp ABG HCO3 ABG Base Excess (Actual) VBG pH VBG pCO2 VBG pO2 VBG HCO3 VBG O2 Saturation VBG Base Excess Sodium 145 Potassium 2.6 L* Chloride 111 H Carbon Dioxide 22 Anion Gap 15 BUN 11 Creatinine 0.60 Estim Creat Clear Calc 94.2 Estimated GFR > 60 POC Glucose 163 H 155 H Random Glucose 167 H Lactic Acid Calcium 8.5 Phosphorus 2.7 Magnesium 1.5 L Albumin 12/22/24 12/22/24 12/22/24 01:05 02:36 02:43 WBC RBC Hgb Hct MCV MCH MCHC RDW Plt Count MPV Immature Gran % (Auto) Neut % (Auto) Lymph % (Auto) [place] % (Auto) Eos % (Auto) Baso % (Auto) Lymph # (Auto) [place] # (Auto) Eos # (Auto) Baso # (Auto) Abs Immat Gran (auto) Absolute Neuts (auto) Absolute Nucleated RBC Nucleated RBC % (auto) O2 Saturation 86.0 100.0 ABG pH at Pt Temp 7.50 H 7.45 ABG pCO2 at Pt Temp 28 L 31 L ABG pO2 at Pt Temp 61 L 149 H ABG HCO3 23 22 ABG Base Excess (Actual) 0.8 -0.5 VBG pH VBG pCO2 VBG pO2 VBG HCO3 VBG O2 Saturation VBG Base Excess Sodium Potassium Chloride Carbon Dioxide Anion Gap BUN Creatinine Estim Creat Clear Calc Estimated GFR POC Glucose Random Glucose Lactic Acid 1.5 Calcium Phosphorus Magnesium Albumin 3.1 L 12/22/24 12/22/24 04:56 04:58 WBC 8.3 RBC 4.07 L Hgb 9.2 L Hct 27.6 L MCV 67.8 L MCH 22.6 L MCHC 33.3 RDW 15.8 Plt Count 326 MPV 11.1 Immature Gran % (Auto) 0.6 H Neut % (Auto) 81.1 H Lymph % (Auto) 8.8 L [place] % (Auto) 6.0 Eos % (Auto) 2.9 Baso % (Auto) 0.6 Lymph # (Auto) 0.7 L [place] # (Auto) 0.5 Eos # (Auto) 0.2 Baso # (Auto) 0.1 Abs Immat Gran (auto) 0.05 H Absolute Neuts (auto) 6.7 Absolute Nucleated RBC 0.000 Nucleated RBC % (auto) 0.0 O2 Saturation ABG pH at Pt Temp ABG pCO2 at Pt Temp ABG pO2 at Pt Temp ABG HCO3 ABG Base Excess (Actual) VBG pH 7.50 H VBG pCO2 28 VBG pO2 71 VBG HCO3 22 VBG O2 Saturation 92.0 VBG Base Excess 0.4 Sodium 142 Potassium 4.2 D Chloride 113 H Carbon Dioxide 20 L Anion Gap 13 BUN 13 Creatinine 0.61 Estim Creat Clear Calc 90.7 Estimated GFR > 60 POC Glucose Random Glucose 169 H Lactic Acid Calcium 8.5 Phosphorus 2.8 Magnesium 2.0 Albumin Microbiology Microbiology Results: Microbiology 12/19/24 18:25 Pericardial Fluid Gram Stain - Final 12/19/24 18:25 Pericardial Fluid Anaerobic Culture - Preliminary No growth to date. 12/19/24 18:25 Pericardial Fluid Body Fluid Culture - Final No growth after 2 days 12/17/24 08:52 Blood - Venous Blood Culture - Preliminary No growth after 48 hours. 12/17/24 08:42 Blood - Venous Blood Culture - Preliminary No growth after 48 hours. Progress Note: A&P Assessment and plan (1) Acute respiratory failure with hypoxia: Status: Acute (2) Pneumonia: Status: Acute (3) COPD (chronic obstructive pulmonary disease): Status: Acute (4) Pericardial effusion with cardiac tamponade: Status: Acute Plan Patient is a 59 Y F w/ schizoaffective disorder, hyperlipidemia, hypothyroidism, and COPD presenting to ED from [facility] facility on 12/17 w/ encephalopathy, found to be in acute hypoxic respiratory failure thought to be d/t pneumonia, admitted medicine; on 12/19, patient developed worsening acute hypoxic respiratory failure, found to have cardiac tamponade, s/p pericardial drain w/ IR N: intubated, sedated w/ propofol, fentanyl gtts, wean as tolerated; schizoaffective disorder, home antipsychotic regimen CV: cardiac tamponade, likely d/t viral pericarditis, s/p pericardial drain 12/19, to monitor output R: acute hypoxic respiratory failure, likely d/t aspiration pneumonia, intubated 12/21, wean as tolerated GI: NGT, to consider tube feeds if remains intubated : no acute issues H: no acute issues; chemical DVT prophylaxis ID: pneumonia, ceftriaxone/azithromycin E: hypothyroidism, home levothyroxine P: schizoaffecitive disorder, home antipsychotic regimen S: unclear if has contacts, to engage case management Quality Stroke Does the patient have a stroke diagnosis?: No VTE Prior VTE?: No VTE Risk Level:: Medical - moderate - high VTE Device Contraindication: N/A - Device Ordered VTE Drug Contraindication: N/A - Med Ordered
[2024-12-22 11:32] LABS: Glucose, Whole Blood 138 mg/dL (60-115)
[2024-12-22] MEDS: fentaNYL citrate/NS 1,000 MCG/100 ML PLAST..BAG 7.5 MCG IVCONT (14:33)
[2024-12-22 18:01] LABS: Glucose, Whole Blood 129 mg/dL (60-115)
--- NOTE | 2024-12-22 19:04 | PC.NURSE ---
Assumed care of patient 0700. Patient remains recently intubated and sedated. Patient requiring propofol gtt and fentanyl gtt for sedation with goal RASS -3. Patient diuresed with scheduled lasix 20 mg IVP. Patient turned and repositoned Q2HR. High fall precautions in place.
[2024-12-22 20:25] LABS: Anion Gap 19 (12-20); Blood Urea Nitrogen 13 mg/dL (9-16); Calcium 8.7 mg/dL (8.4-10.2); Carbon Dioxide 18 mmol/L (22-29); Chloride 111 mmol/L (96-108); Creatinine Clr Calc Pharmacy 75.7; Estimated Glomerular Filt Rate > 60; Magnesium 1.8 mg/dL (1.6-2.6); Potassium 3.8 mmol/L (3.3-5.1); Sodium 144 mmol/L (135-145)
[2024-12-22] MEDS: Vasopressin 20 UNIT/100 ML INFUS..BTL 12 UNIT IVCONT (20:41)
[2024-12-22] MEDS: Albumin Human 25 % 100 ML 133.33 ML IV ×2 (21:04→21:49)
--- NOTE | 2024-12-22 21:17 | PM.SEPSIS ---
Sepsis Event Note Evaluation Sepsis screening result: No Definite Risk Current stage of sepsis: severe sepsis Reason for ruling out sepsis: febrile, tachycardic, hypotensive Initial hypotension due to sepsis/infection: SBP < 90 mmHg Possible source: pulmonary (aspiration) Focused Exam Vital signs: Vital Signs Temp Pulse Resp BP Pulse Ox O2 Del Method FiO2 12/22/24 21:09 119 H 167/89 H 12/22/24 21:05 126 H 160/94 H 12/22/24 21:03 123 H 175/95 H 12/22/24 20:59 101.1 F H 128 H 22 H 137/95 H 96 Mechanical Ventilation 60 12/22/24 20:41 147 H 83/60 L 12/22/24 20:34 139 H 78/42 L 12/22/24 20:15 135 H 82/31 L 12/22/24 20:03 124 H 83/56 L 12/22/24 20:01 125 H 24 H 12/22/24 20:01 60 12/22/24 20:00 101.5 F H 119 H 25 H 90/61 95 Mechanical Ventilation 60 12/22/24 19:26 95 60 12/22/24 19:24 30 H 12/22/24 19:05 129 H 32 H 12/22/24 19:00 101.3 F H 126 H 30 H 116/80 95 Mechanical Ventilation 55 12/22/24 18:00 100.9 F H 122 H 23 H 115/77 96 Mechanical Ventilation 55 12/22/24 17:33 115 H 87/56 L 12/22/24 17:00 100.6 F H 116 H 20 85/61 L 94 Mechanical Ventilation 55 12/22/24 16:21 111 H 24 H 12/22/24 16:21 60 12/22/24 16:00 100.4 F 111 H 23 H 97/58 L 94 Mechanical Ventilation 55 12/22/24 15:52 94 60 12/22/24 15:00 99.9 F 108 H 13 93/63 91 L Mechanical Ventilation 55 12/22/24 14:00 99.7 F 117 H 20 116/71 96 Mechanical Ventilation 55 12/22/24 13:00 99.5 F 101 H 24 H 107/73 96 Mechanical Ventilation 55 12/22/24 12:00 94 60 12/22/24 12:00 99.5 F 104 H 25 H 97/66 96 Mechanical Ventilation 55 12/22/24 11:43 98 21 H 12/22/24 11:43 60 12/22/24 11:00 98.4 F 93 21 H 109/76 93 Mechanical Ventilation 55 12/22/24 10:00 98.1 F 94 23 H 129/79 94 Mechanical Ventilation 55 12/22/24 09:52 87 136/78 12/22/24 09:38 79 84/56 L 12/22/24 09:18 73 81/51 L Respiratory exam: Present patient mechanically ventilated Cardiovascular exam: tachycardia Capillary refill: < 2 Seconds Peripheral pulse strength: 3+ Normal Peripheral pulse location: Pedal Skin exam: pale and other (abnormal turgor) Date exam was performed: 12/22/24 Time exam was performed: 22:02 Bedside Monitoring Bedside cardiovascular ultrasound performed: No Fluid responsiveness: fluid responsive Date bedside monitoring was performed: 12/22/24 Time bedside monitoring was performed: 22:02 Problem List (1) Acute respiratory failure with hypoxia: Status: Acute (2) Pneumonia: Status: Acute (3) COPD (chronic obstructive pulmonary disease): Status: Acute (4) Pericardial effusion with cardiac tamponade: Status: Acute
[2024-12-22] MEDS: fentaNYL citrate/NS 1,000 MCG/100 ML PLAST..BAG 15 MCG IVCONT (21:25)
[2024-12-22] MEDS: Hydrocortisone Sod Succ/PF 100 MG VIAL IVPUSH (21:35)
[2024-12-22] MEDS: cefEPime HCl/D5W 2 GM/50 ML PIGGYBACK IV (21:39)
[2024-12-22 23:52] LABS: Glucose, Whole Blood 180 mg/dL (60-115)
[2024-12-23] VITALS (35 sets, daily range): BP systolic 97–150; BP diastolic 58–80; PULSE 64–112; RESP 11–77; TEMP 34.9–37.5; O2SAT 87–100; BMI 27.3
[2024-12-23] MEDS: Hydrocortisone Sod Succ/PF 100 MG VIAL 50 MG IVPUSH ×2 (02:07→07:31)
[2024-12-23] MEDS: cefEPime HCl/D5W 2 GM/50 ML PIGGYBACK IV (04:45)
[2024-12-23] MEDS: fentaNYL citrate/NS 1,000 MCG/100 ML PLAST..BAG 12.5 MCG IVCONT ×3 (04:50→19:32)
--- NOTE | 2024-12-23 05:27 | PC.NURSE ---
Upon initial assessment at 1900 ? patient sedated on propofol and fentanyl infusions, RASS -3. Tmax 101.5?F via core bladder probe. Ice bags applied with no effect; RADHA Green notified. PRN APAP ordered and administered per MAY. Sinus tach on tele, HR up to 140s. Trended down with resolution of fever. Levophed and vasopressin titrated to maintain MAP >65. Pericardial drain in place. ETT #7.5 at 21 cm at lip; on ACVC+ settings. NPO; OGT clamped. No BM. Indwelling urinary catheter in place; UOP as charted. Skin overall intact with prophylactic foam dressings in place. Repositioned in bed q2h with pillows/wedges. Bed locked in lowest position, alarm on. See EMR/flowsheet for additional details.
[2024-12-23 05:40] LABS: Glucose, Whole Blood 179 mg/dL (60-115)
[2024-12-23 05:43] LABS: VBG HCO3 22 mmol/L (22-26); VBG O2 % Saturation 96.0 %
[2024-12-23 05:44] LABS: Venous Blood Gas Refer to POC result
[2024-12-23 06:00] LABS: Hematocrit 25.0 % (37.0-47.0); Hemoglobin 8.2 g/dl (12.0-16.0); Imm Gran Abs Auto 0.08 X10*3/uL (0.00-0.03); Imm Gran Pct Auto 0.9 % (0.0-0.4); Lymphocytes Absolute Auto 0.5 X10*3/uL (1.2-4.9); Mean Corpuscular HGB Conc 32.8 g/dl (31.0-35.0); Mean Corpuscular Hemoglobin 22.7 pg (27.0-33.0); Mean Corpuscular Volume 69.3 fL (80.0-98.0); NRBC Abs Auto 0.000 X10*3/uL (0.0-0.012); NRBC Pct Auto 0.0 /100WBC (0.0-0.2); Platelet Count 361 X10*3/uL (160-400); Red Blood Count 3.61 X10*6/uL (4.20-5.50); SCAN SMEAR FLAG 1; White Blood Count 9.2 X10*3/uL (4.8-10.8)
[2024-12-23 06:08] LABS: Albumin Level 3.7 g/dL (3.5-5.0); Anion Gap 13 (12-20); Blood Urea Nitrogen 15 mg/dL (9-16); Calcium 8.8 mg/dL (8.4-10.2); Carbon Dioxide 22 mmol/L (22-29); Chloride 113 mmol/L (96-108); Creatinine Clr Calc Pharmacy 80.2; Estimated Glomerular Filt Rate > 60; Magnesium 1.9 mg/dL (1.6-2.6); Potassium 3.9 mmol/L (3.3-5.1); Sodium 144 mmol/L (135-145)
[2024-12-23 06:22] LABS: MANUAL DIFF FLAG SCAN
--- NOTE | 2024-12-23 07:00 | CA_ITS ---
Transthoracic Echocardiogram Patient (Last, First, Middle): Jennifer Ronquillo, Gender: Female Date of : 1965 Age: 59 Procedure Date: 12/23/2024 Procedure Type: Transthoracic Echocardiogram Location: ICU Height: 160.02 cm Weight: 69.85 kg BSA: 1.73 m2 Heart Rate: 123 bpm BP: 112 / 67 mmHg Health And Wellness Manager: BAY Referring MD: Nuris Nelson MD Symptoms: Please Assess Pericardial Effusion Study Quality: Technically Difficult. Limited per order Conclusions: - There are no definitive echocardiographic findings of tamponade physiology. Septal bounce is noted. There is excessive respiratory variation of the tricuspid valve Doppler velocities. Trivial pericardial effusion circumferentially overall. Small effusion along the anterolateral wall. Findings Procedure Information The study quality is limited by patients body habitus and the presence of a ventilator. Left Ventricle Normal left ventricular size and systolic function. The visually estimated ejection fraction is between 60-65%. Right Ventricle Normal right ventricular cavity size and systolic function. Tricuspid Valve Indeterminate right atrial pressure. Venous The inferior vena cava is dilated and collapses greater than 50% with inspiration. Pericardium/Pleural There are no definitive echocardiographic findings of tamponade physiology. Septal bounce is noted. There is excessive respiratory variation of the tricuspid valve Doppler velocities. Trivial pericardial effusion circumferentially overall. Small effusion along the anterolateral wall. Prior Study Comparison No significant change compared to prior study dated: 12/20/2024. Measurements 2D Linear Measurements LVOT Diam: 1.90 3.0+(-)1.3 cm LVOT LVOT Pk Ba: 1.37 LVOT Mn Ba: 0.91 LVOT VTI: 0.22 LVOT Pk Grad: 8.00 LVOT Mn Grad: 4.00 LVOT Diam: 1.90 LVOT Area: 2.84 Updated in Other Vendor System with Status of Final Henri Acosta MD electronically signed on 12/23/2024 1:39:32 PM with status of Final
[2024-12-23] MEDS: Furosemide 20 MG/2 ML VIAL IVPUSH (07:30)
[2024-12-23] MEDS: Chlorhexidine Gluc Oral Rinse 15 ML MOUTHWASH BUCCAL ×3 (07:31→20:53)
[2024-12-23] MEDS: 0.9 % Sodium Chloride Flush 3 ML SYRINGE IVFLUSH ×2 (07:31→16:38)
[2024-12-23] MEDS: Albuterol/Iprat 2.5/0.5MG 3 ML AMPUL.NEB INHALE ×4 (08:21→20:32)
[2024-12-23 11:58] LABS: Glucose, Whole Blood 153 mg/dL (60-115)
--- NOTE | 2024-12-23 12:36 | P.PNCC_ITS ---
Subjective Subjective Date of Service: 12/23/24 Interval History: 59-year-old lady with underlying COPD, hypothyroidism, schizoaffective disorder admitted on 12/17/2024 with alteration in mental status and hypoxia patient was empirically treated with broad-spectrum antibiotics and IV fluid resuscitation for sepsis with worsening hypoxemia. Her 2D echocardiogram demonstrated large pericardial effusion, likely chronic, but now patient is status post pericardial drain placement on 12/19/2024. Hospital course further complicated by pulmonary aspiration requiring intubation 12/22/2024. No events overnight. Critical Care Time (minutes): 60 Physical Exam 2 Vital Signs: Vital Signs: Last Vital Signs Temp 99.0 F 12/23/24 11:00 Pulse 80 12/23/24 11:39 Resp 14 12/23/24 11:39 BP 149/75 H 12/23/24 11:00 Pulse Ox 89 L 12/23/24 12:00 O2 Del Method Mechanical Ventil ation 12/23/24 11:00 O2 Flow Rate 45 12/22/24 01:00 FiO2 60 12/23/24 12:00 BMI result Body Mass Index 27.3 Const: General: no acute distress and other (Sedated on ventilatory support) Eyes: Sclerae: sclerae normal EOM: EOMs intact bilaterally Neck: Neck: Yes no lymphadenopathy, Yes trachea midline and Yes supple Resp: Auscultation: crackles (Bilateral) Cardio: Rate: regular rate Rhythm: regular rhythm Heart sounds: no gallops, no murmurs and no rubs GI: Palpation (GI): Soft to palpation and Other GI palpation findings present ( Nontender) Auscultation: normal bowel sounds Extrem: General: No clubbing, No cyanosis and Yes edema (1+ bilateral) Objective Data Labs 12/23/24 05:38 12/23/24 05:38 Labs: Laboratory Results - last 24 hr 12/22/24 12/22/24 12/22/24 17:58 17:59 20:00 WBC RBC Hgb Hct MCV MCH MCHC RDW Plt Count MPV Immature Gran % (Auto) Neut % (Auto) Lymph % (Auto) [place] % (Auto) Eos % (Auto) Baso % (Auto) Lymph # (Auto) [place] # (Auto) Eos # (Auto) Baso # (Auto) Abs Immat Gran (auto) Absolute Neuts (auto) Absolute Nucleated RBC Nucleated RBC % (auto) Smear Tech's Comments VBG pH VBG pCO2 VBG pO2 VBG HCO3 VBG O2 Saturation VBG Base Excess Sodium 144 Potassium 3.8 Chloride 111 H Carbon Dioxide 18 L Anion Gap 19 BUN 13 Creatinine 0.73 Estim Creat Clear Calc 75.7 Estimated GFR > 60 POC Glucose 129 H Random Glucose 160 H Lactic Acid Calcium 8.7 Phosphorus 3.1 Magnesium 1.8 Albumin Vancomycin Trough 20.8 H 12/22/24 12/22/24 12/23/24 20:59 23:47 05:34 WBC RBC Hgb Hct MCV MCH MCHC RDW Plt Count MPV Immature Gran % (Auto) Neut % (Auto) Lymph % (Auto) [place] % (Auto) Eos % (Auto) Baso % (Auto) Lymph # (Auto) [place] # (Auto) Eos # (Auto) Baso # (Auto) Abs Immat Gran (auto) Absolute Neuts (auto) Absolute Nucleated RBC Nucleated RBC % (auto) Smear Tech's Comments VBG pH VBG pCO2 VBG pO2 VBG HCO3 VBG O2 Saturation VBG Base Excess Sodium Potassium Chloride Carbon Dioxide Anion Gap BUN Creatinine Estim Creat Clear Calc Estimated GFR POC Glucose 180 H 179 H Random Glucose Lactic Acid 2.0 Calcium Phosphorus Magnesium Albumin Vancomycin Trough 12/23/24 12/23/24 12/23/24 05:38 05:40 11:41 WBC 9.2 RBC 3.61 L Hgb 8.2 L Hct 25.0 L MCV 69.3 L MCH 22.7 L MCHC 32.8 RDW 15.5 Plt Count 361 MPV 10.3 Immature Gran % (Auto) 0.9 H Neut % (Auto) 91.3 H Lymph % (Auto) 5.1 L [place] % (Auto) 2.4 Eos % (Auto) 0.1 Baso % (Auto) 0.2 Lymph # (Auto) 0.5 L [place] # (Auto) 0.2 Eos # (Auto) 0.0 Baso # (Auto) 0.0 Abs Immat Gran (auto) 0.08 H Absolute Neuts (auto) 8.4 H Absolute Nucleated RBC 0.000 Nucleated RBC % (auto) 0.0 Smear Tech's Comments VERIFIED VBG pH 7.49 H VBG pCO2 29 VBG pO2 81 VBG HCO3 22 VBG O2 Saturation 96.0 VBG Base Excess 0.1 Sodium 144 Potassium 3.9 Chloride 113 H Carbon Dioxide 22 Anion Gap 13 BUN 15 Creatinine 0.69 Estim Creat Clear Calc 80.2 Estimated GFR > 60 POC Glucose 153 H Random Glucose 185 H Lactic Acid Calcium 8.8 Phosphorus 3.5 Magnesium 1.9 Albumin 3.7 Vancomycin Trough Microbiology Microbiology Results: Microbiology 12/19/24 18:25 Pericardial Fluid Gram Stain - Final 12/19/24 18:25 Pericardial Fluid Anaerobic Culture - Preliminary No growth to date. 12/19/24 18:25 Pericardial Fluid Body Fluid Culture - Final No growth after 2 days 12/22/24 02:49 Blood - Venous Blood Culture - Preliminary No growth after 24 hours. 12/22/24 02:49 Blood - Venous Blood Culture - Preliminary No growth after 24 hours. 12/17/24 08:52 Blood - Venous Blood Culture - Final No growth after 5 days. 12/17/24 08:42 Blood - Venous Blood Culture - Final No growth after 5 days. Progress Note: A&P Assessment and plan (1) COPD (chronic obstructive pulmonary disease): Status: Acute (2) Acute respiratory failure with hypoxia: Status: Acute (3) Pericardial effusion: Status: Acute (4) Pulmonary edema: Status: Acute (5) Schizoaffective disorder: Status: Acute Plan Assessment: 59-year-old lady with underlying COPD, schizoaffective disorder, and hypothyroidism admitted 12/17/2024 with encephalopathy and progressive hypoxia and treated for pneumonia with hospital course significant for finding a large pericardial effusion, now status post pericardial drain, and pulmonary aspiration now requiring ventilatory support. Plan: Neuro: No acute issues. Cardiac: Large pericardial effusion, likely chronic, now status post pericardial drain. Cardiology service care appreciated. Continues on empiric colchicine for inflammatory pericarditis. Pulmonary: Acute respiratory failure secondary to pulmonary aspiration and pulmonary edema requiring ventilatory support, continue to titrate off as tolerated. Renal: No acute issues. Endo: No acute issues. GI: No acute issues. ID: Completed antibiotic course for aspiration pneumonia. Heme/Onc: No acute issues. Psych: No acute issues. Miscellaneous: No acute issues. Prophylaxis: Lovenox, PPI Diet: Tube feeds Critical care time spent: 60 minutes Quality Stroke Does the patient have a stroke diagnosis?: No VTE Prior VTE?: No VTE Risk Level:: Medical - moderate - high VTE Device Contraindication: N/A - Device Ordered VTE Drug Contraindication: N/A - Med Ordered
--- NOTE | 2024-12-23 12:54 | P.PNCA_ITS ---
Subjective Subjective Date of Service: 12/23/24 Principal diagnosis: Pericardial tamponade Interval history: Seen and examined at bedside. The patient is currently sedated and ventilated. Not on any pressors. Physical Exam Vital Signs: Last Vital Signs Temp 99.0 F 12/23/24 11:00 Pulse 80 12/23/24 11:39 Resp 14 12/23/24 11:39 BP 149/75 H 12/23/24 11:00 Pulse Ox 89 L 12/23/24 12:00 O2 Del Method Mechanical Ventilation 12/23/24 11:00 O2 Flow Rate 45 12/22/24 01:00 FiO2 60 12/23/24 12:00 BMI result Body Mass Index 27.3 GENERAL APPEARANCE: Sedated and intubated. NECK: no carotid bruit, mild jugular venous distention. SKIN: no suspicious lesions, warm and dry. HEART: no murmurs, regular rate and rhythm. LUNGS: clear to auscultation anteriorly. EXTREMITIES: no edema. PERIPHERAL PULSES: equal. NEUROLOGIC: Sedated. Objective Labs and Meds 12/23/24 05:38 12/23/24 05:38 Lab results: Laboratory Results - last 24 hr 12/22/24 12/22/24 12/22/24 17:58 17:59 20:00 WBC RBC Hgb Hct MCV MCH MCHC RDW Plt Count MPV Immature Gran % (Auto) Neut % (Auto) Lymph % (Auto) [place] % (Auto) Eos % (Auto) Baso % (Auto) Lymph # (Auto) [place] # (Auto) Eos # (Auto) Baso # (Auto) Abs Immat Gran (auto) Absolute Neuts (auto) Absolute Nucleated RBC Nucleated RBC % (auto) Smear Tech's Comments VBG pH VBG pCO2 VBG pO2 VBG HCO3 VBG O2 Saturation VBG Base Excess Sodium 144 Potassium 3.8 Chloride 111 H Carbon Dioxide 18 L Anion Gap 19 BUN 13 Creatinine 0.73 Estim Creat Clear Calc 75.7 Estimated GFR > 60 POC Glucose 129 H Random Glucose 160 H Lactic Acid Calcium 8.7 Phosphorus 3.1 Magnesium 1.8 Albumin Vancomycin Trough 20.8 H 12/22/24 12/22/24 12/23/24 20:59 23:47 05:34 WBC RBC Hgb Hct MCV MCH MCHC RDW Plt Count MPV Immature Gran % (Auto) Neut % (Auto) Lymph % (Auto) [place] % (Auto) Eos % (Auto) Baso % (Auto) Lymph # (Auto) [place] # (Auto) Eos # (Auto) Baso # (Auto) Abs Immat Gran (auto) Absolute Neuts (auto) Absolute Nucleated RBC Nucleated RBC % (auto) Smear Tech's Comments VBG pH VBG pCO2 VBG pO2 VBG HCO3 VBG O2 Saturation VBG Base Excess Sodium Potassium Chloride Carbon Dioxide Anion Gap BUN Creatinine Estim Creat Clear Calc Estimated GFR POC Glucose 180 H 179 H Random Glucose Lactic Acid 2.0 Calcium Phosphorus Magnesium Albumin Vancomycin Trough 12/23/24 12/23/24 12/23/24 05:38 05:40 11:41 WBC 9.2 RBC 3.61 L Hgb 8.2 L Hct 25.0 L MCV 69.3 L MCH 22.7 L MCHC 32.8 RDW 15.5 Plt Count 361 MPV 10.3 Immature Gran % (Auto) 0.9 H Neut % (Auto) 91.3 H Lymph % (Auto) 5.1 L [place] % (Auto) 2.4 Eos % (Auto) 0.1 Baso % (Auto) 0.2 Lymph # (Auto) 0.5 L [place] # (Auto) 0.2 Eos # (Auto) 0.0 Baso # (Auto) 0.0 Abs Immat Gran (auto) 0.08 H Absolute Neuts (auto) 8.4 H Absolute Nucleated RBC 0.000 Nucleated RBC % (auto) 0.0 Smear Tech's Comments VERIFIED VBG pH 7.49 H VBG pCO2 29 VBG pO2 81 VBG HCO3 22 VBG O2 Saturation 96.0 VBG Base Excess 0.1 Sodium 144 Potassium 3.9 Chloride 113 H Carbon Dioxide 22 Anion Gap 13 BUN 15 Creatinine 0.69 Estim Creat Clear Calc 80.2 Estimated GFR > 60 POC Glucose 153 H Random Glucose 185 H Lactic Acid Calcium 8.8 Phosphorus 3.5 Magnesium 1.9 Albumin 3.7 Vancomycin Trough Progress Note: A&P Assessment and plan (1) Pericardial effusion with cardiac tamponade: Status: Acute Plan [age] year female with pericardial effusion and clinical pericardial tamponade status post pericardiocentesis. She is still has a drain in place. Currently drain has 25 cc of serous appearing fluid. She is not on any pressors and currently is sedated on ventilator. I will review the echocardiogram from today. If there is improvement in the pericardial effusion then we will consider taking the drain out. As recommended previously she should be on anti-inflammatory medicines like colchicine and NSAIDs. Thank you for allowing me to participate in the care of your patient. Please feel free to contact me if you have any questions. Time Spent With Patient Time: Total time managing care of this patient today ____ minutes. Progress Note: Quality Stroke Does the patient have a stroke diagnosis?: No Procedures Date of Service Date of Service: 12/23/24
--- NOTE | 2024-12-23 13:04 | PC.NURSE ---
Patient's Legal Gardian: Ayla Og. [phone] - acquired from [facility]. [facility] called asking for patient update. Transferred to case management line to connect RN to CM.
[2024-12-23] MEDS: Furosemide 20 MG/2 ML VIAL 40 MG IVPUSH ×2 (13:30→18:00)
--- NOTE | 2024-12-23 15:40 | MHC.CLN ---
NUTRITION INTUBATED AND SEDATED 12/22 NPO WITH OG TUBE CLAMPED SEDATION PROVIDING 462 KCALS WILL REQUIRE NUTRITION/HYDRATION VIA TUBE FEEDING IF INTUBATION CONTINUES
--- NOTE | 2024-12-23 17:24 | PC.NURSE ---
Assumed care of patient 0700. Patient is vented and sedated, FiO2 requirement 60%, SaO2 89-92%. Pericardial window AUGUSTINE drain remains in place with small amount of clear yellow drainage. Small pieces of light morris tissue present in [place] drain bulb. Repeat echocardiogram completed at approx 0900. Patient turned and repositioned Q2HR. High fall precautions in place.
[2024-12-23 17:33] LABS: Glucose, Whole Blood 115 mg/dL (60-115)
[2024-12-23 20:31] LABS: Calcium 8.8 mg/dL (8.4-10.2)
[2024-12-23 20:32] LABS: Albumin Level 3.7 g/dL (3.5-5.0); Anion Gap 16 (12-20); Blood Urea Nitrogen 14 mg/dL (9-16); Carbon Dioxide 24 mmol/L (22-29); Chloride 108 mmol/L (96-108); Creatinine Clr Calc Pharmacy 77.9; Estimated Glomerular Filt Rate > 60; Magnesium 1.8 mg/dL (1.6-2.6); Potassium 2.6 mmol/L (3.3-5.1); Sodium 145 mmol/L (135-145)
[2024-12-23] MEDS: Potassium Chloride Packet 20 MEQ PACKET 40 MEQ PO ×2 (20:52→22:55)
[2024-12-23] MEDS: Potassium Chloride/H20 10 MEQ/100 ML PIGGYBACK 100 MEQ IV ×4 (20:53→23:56)
[2024-12-23 22:46] LABS: VBG HCO3 24 mmol/L (22-26); VBG O2 % Saturation 99.0 %
[2024-12-23 23:17] LABS: Venous Blood Gas Refer to POC result
[2024-12-24] VITALS (35 sets, daily range): BP systolic 93–160; BP diastolic 58–106; PULSE 89–121; RESP 11–30; TEMP 35–37.8; O2SAT 88–96; BMI 27.3
[2024-12-24 00:02] LABS: Glucose, Whole Blood 118 mg/dL (60-115)
[2024-12-24] MEDS: Potassium Chloride Packet 20 MEQ PACKET 40 MEQ PO (01:32)
[2024-12-24] MEDS: fentaNYL citrate/NS 1,000 MCG/100 ML PLAST..BAG 15 MCG IVCONT ×2 (01:59→08:25)
[2024-12-24 05:38] LABS: VBG HCO3 22 mmol/L (22-26); VBG O2 % Saturation 91.0 %
[2024-12-24 05:47] LABS: Hematocrit 26.5 % (37.0-47.0); Hemoglobin 8.7 g/dl (12.0-16.0); Imm Gran Abs Auto 0.08 X10*3/uL (0.00-0.03); Imm Gran Pct Auto 0.7 % (0.0-0.4); Lymphocytes Absolute Auto 1.5 X10*3/uL (1.2-4.9); MANUAL DIFF FLAG NO; Mean Corpuscular HGB Conc 32.8 g/dl (31.0-35.0); Mean Corpuscular Hemoglobin 22.7 pg (27.0-33.0); Mean Corpuscular Volume 69.2 fL (80.0-98.0); NRBC Abs Auto 0.000 X10*3/uL (0.0-0.012); NRBC Pct Auto 0.0 /100WBC (0.0-0.2); Platelet Count 398 X10*3/uL (160-400); Red Blood Count 3.83 X10*6/uL (4.20-5.50); White Blood Count 10.8 X10*3/uL (4.8-10.8)
[2024-12-24 06:00] LABS: Venous Blood Gas Refer to POC result
[2024-12-24 06:16] LABS: Glucose, Whole Blood 147 mg/dL (60-115)
[2024-12-24 06:19] LABS: Albumin Level 3.5 g/dL (3.5-5.0); Anion Gap 13 (12-20); Blood Urea Nitrogen 19 mg/dL (9-16); Calcium 9.2 mg/dL (8.4-10.2); Carbon Dioxide 22 mmol/L (22-29); Chloride 114 mmol/L (96-108); Creatinine Clr Calc Pharmacy 65.9; Estimated Glomerular Filt Rate > 60; Magnesium 1.8 mg/dL (1.6-2.6); Potassium 4.7 mmol/L (3.3-5.1); Sodium 144 mmol/L (135-145)
[2024-12-24] MEDS: 0.9 % Sodium Chloride Flush 3 ML SYRINGE IVFLUSH ×3 (07:17→21:01)
[2024-12-24] MEDS: Potassium Phosphate/NS 15 MMOL/250 ML PLAST..BAG 62.5 MMOL IV (07:19)
[2024-12-24] MEDS: Albuterol/Iprat 2.5/0.5MG 3 ML AMPUL.NEB INHALE ×3 (09:33→15:38)
[2024-12-24] MEDS: Chlorhexidine Gluc Oral Rinse 15 ML MOUTHWASH BUCCAL (09:46)
[2024-12-24] MEDS: Furosemide 20 MG/2 ML VIAL 40 MG IVPUSH ×2 (09:46→17:43)
[2024-12-24] MEDS: dexmedeTOMIDine HCL/NS 400 MCG/100 ML PLAST..BAG 17.48 MCG IVCONT (10:30)
--- NOTE | 2024-12-24 11:15 | MHC.CLN ---
F/U PT REMAINS INTUBATED AND SEDATED DISCUSSED AT ROUNDS WITH MD CURRENTLY NPO IF TF NEEDED; RECOMMEND VITAL 1.2 AF AT MAX GOAL RATE 35ML/HR WITH 240ML FREE WATER FLSUHES Q 6 HRS TO PROVIDE 1008KCALS (1586KCALS WITH SEDATION; 28KCALS/KG), 63G PROTEIN (1.1G/KG), 1641ML TOTAL FREE WATER FROM FORMULA AND FLUSHES (29ML/KG) MONITOR TOLERANCE AND LYTES FOLLOWING FOR DIET ADVANCEMENT
--- NOTE | 2024-12-24 11:51 | P.PNCC_ITS ---
Subjective Subjective Date of Service: 12/24/24 Interval History: 59-year-old lady with underlying COPD, hypothyroidism, schizoaffective disorder admitted on 12/17/2024 with alteration in mental status and hypoxia patient was empirically treated with broad-spectrum antibiotics and IV fluid resuscitation for sepsis with worsening hypoxemia. Her 2D echocardiogram demonstrated large pericardial effusion, likely chronic, but now patient is status post pericardial drain placement on 12/19/2024. Hospital course further complicated by pulmonary aspiration requiring intubation 12/22/2024. No events overnight. Pericardial drain removed. Critical Care Time (minutes): 60 Physical Exam 2 Vital Signs: Vital Signs: Last Vital Signs Temp 99.0 F 12/24/24 11:00 Pulse 100 12/24/24 11:37 Resp 15 12/24/24 11:37 BP 129/85 12/24/24 11:00 Pulse Ox 91 L 12/24/24 11:15 O2 Del Method Mechanical Ventil ation 12/24/24 11:00 O2 Flow Rate 92 12/23/24 20:00 FiO2 55 12/24/24 11:37 BMI result Body Mass Index 27.3 Const: General: no acute distress and other (Sedated on ventilatory support.) Eyes: Sclerae: sclerae normal EOM: EOMs intact bilaterally Neck: Neck: Yes no lymphadenopathy, Yes trachea midline and Yes supple Resp: Effort & Inspection: normal respiratory effort and no respiratory distress Auscultation: clear to auscultation bilaterally Cardio: Rate: regular rate Rhythm: regular rhythm Heart sounds: no gallops, no murmurs and no rubs GI: Palpation (GI): Soft to palpation and Other GI palpation findings present ( Nontender) Auscultation: normal bowel sounds Extrem: General: Yes no pedal edema, No clubbing and No cyanosis Objective Data Labs 12/24/24 05:31 12/24/24 05:31 Labs: Laboratory Results - last 24 hr 12/23/24 12/23/24 12/23/24 11:41 17:30 20:03 WBC RBC Hgb Hct MCV MCH MCHC RDW Plt Count MPV Immature Gran % (Auto) Neut % (Auto) Lymph % (Auto) [place] % (Auto) Eos % (Auto) Baso % (Auto) Lymph # (Auto) [place] # (Auto) Eos # (Auto) Baso # (Auto) Abs Immat Gran (auto) Absolute Neuts (auto) Absolute Nucleated RBC Nucleated RBC % (auto) VBG pH VBG pCO2 VBG pO2 VBG HCO3 VBG O2 Saturation VBG Base Excess Sodium 145 Potassium 2.6 L* D Chloride 108 Carbon Dioxide 24 Anion Gap 16 BUN 14 Creatinine 0.71 Estim Creat Clear Calc 77.9 Estimated GFR > 60 POC Glucose 153 H 115 Random Glucose 114 Calcium 8.8 Phosphorus 3.4 Magnesium 1.8 Albumin 3.7 12/23/24 12/23/24 12/24/24 22:43 23:59 05:31 WBC 10.8 RBC 3.83 L Hgb 8.7 L Hct 26.5 L MCV 69.2 L MCH 22.7 L MCHC 32.8 RDW 16.0 Plt Count 398 MPV 9.7 Immature Gran % (Auto) 0.7 H Neut % (Auto) 72.1 Lymph % (Auto) 14.1 L [place] % (Auto) 8.0 Eos % (Auto) 4.7 H Baso % (Auto) 0.4 Lymph # (Auto) 1.5 [place] # (Auto) 0.9 Eos # (Auto) 0.5 H Baso # (Auto) 0.0 Abs Immat Gran (auto) 0.08 H Absolute Neuts (auto) 7.8 Absolute Nucleated RBC 0.000 Nucleated RBC % (auto) 0.0 VBG pH 7.59 H VBG pCO2 25 VBG pO2 161 VBG HCO3 24 VBG O2 Saturation 99.0 VBG Base Excess 4.0 Sodium 144 Potassium 4.7 D Chloride 114 H Carbon Dioxide 22 Anion Gap 13 BUN 19 H Creatinine 0.84 Estim Creat Clear Calc 65.9 Estimated GFR > 60 POC Glucose 118 H Random Glucose 140 H Calcium 9.2 Phosphorus 2.1 L Magnesium 1.8 Albumin 3.5 12/24/24 12/24/24 05:34 06:13 WBC RBC Hgb Hct MCV MCH MCHC RDW Plt Count MPV Immature Gran % (Auto) Neut % (Auto) Lymph % (Auto) [place] % (Auto) Eos % (Auto) Baso % (Auto) Lymph # (Auto) [place] # (Auto) Eos # (Auto) Baso # (Auto) Abs Immat Gran (auto) Absolute Neuts (auto) Absolute Nucleated RBC Nucleated RBC % (auto) VBG pH 7.46 H VBG pCO2 30 VBG pO2 68 VBG HCO3 22 VBG O2 Saturation 91.0 VBG Base Excess -0.8 Sodium Potassium Chloride Carbon Dioxide Anion Gap BUN Creatinine Estim Creat Clear Calc Estimated GFR POC Glucose 147 H Random Glucose Calcium Phosphorus Magnesium Albumin Microbiology Microbiology Results: Microbiology 12/19/24 18:25 Pericardial Fluid Gram Stain - Final 12/19/24 18:25 Pericardial Fluid Anaerobic Culture - Final NO GROWTH AFTER 5 DAYS 12/19/24 18:25 Pericardial Fluid Body Fluid Culture - Final No growth after 2 days 12/22/24 02:49 Blood - Venous Blood Culture - Preliminary No growth after 48 hours. 12/22/24 02:49 Blood - Venous Blood Culture - Preliminary No growth after 48 hours. 12/22/24 20:59 Blood - Venous Blood Culture - Preliminary No growth after 24 hours. 12/17/24 08:52 Blood - Venous Blood Culture - Final No growth after 5 days. 12/17/24 08:42 Blood - Venous Blood Culture - Final No growth after 5 days. Progress Note: A&P Assessment and plan (1) Pulmonary edema: Status: Acute (2) Acute respiratory failure with hypoxia: Status: Acute (3) COPD (chronic obstructive pulmonary disease): Status: Acute (4) Schizoaffective disorder: Status: Acute (5) Pericardial effusion: Status: Acute Plan Assessment: 59-year-old lady with underlying COPD, schizoaffective disorder, and hypothyroidism admitted 12/17/2024 with encephalopathy and progressive hypoxia and treated for pneumonia with hospital course significant for finding a large pericardial effusion, now status post pericardial drain, and pulmonary aspiration now requiring ventilatory support. Plan: Neuro: No acute issues. Cardiac: Large pericardial effusion, likely chronic, now status post pericardial drain. Cardiology service care appreciated. Pericardial drain removed per Cardiology recommendation. Continues on empiric colchicine for inflammatory pericarditis. Pulmonary: Acute respiratory failure secondary to pulmonary aspiration and pulmonary edema requiring ventilatory support, continue to titrate off as tolerated. Renal: No acute issues. Endo: No acute issues. GI: No acute issues. ID: Completed antibiotic course for aspiration pneumonia. Heme/Onc: No acute issues. Psych: No acute issues. Miscellaneous: No acute issues. Prophylaxis: Lovenox, PPI Diet: Tube feeds Critical care time spent: 60 minutes Quality Stroke Does the patient have a stroke diagnosis?: No VTE Prior VTE?: No VTE Risk Level:: Medical - moderate - high VTE Device Contraindication: N/A - Device Ordered VTE Drug Contraindication: N/A - Med Ordered
[2024-12-24 11:53] LABS: Glucose, Whole Blood 160 mg/dL (60-115)
--- NOTE | 2024-12-24 11:54 | P.CDIM_ITS ---
PROVIDER RESPONSE TEXT: To clarify, the appropriate diagnosis supported by the clinical indicators: Diastolic: Acute on chronic QUERY TEXT: PHYSICIAN'S DOCUMENTATION REQUEST Date of Query: 12/24/2024 11:40 AM EDT Patient Name: Jennifer Ronquillo Admit Date: 12/17/2024 Dear Mike Smith MD, A review of the medical record indicates additional documentation may be needed. Please review below and update the documentation accordingly. Clinical Indicators: Progress note 12/19/24 - BNP level is approximately 3000. IV Lasix Acute hypoxic respiratory failure in the setting of pneumonia, more hypoxic this morning with highly component of CHF. Cardiology consult note 12/19/24 - There was suggestion of heart failure by elevated BNP and further respiratory distress, given diuretic without any improvement. Please provide further specificity regarding the most likely type and acuity of CHF that has been documented within the medical record: Systolic Please specify if Acute, Chronic, or Acute on chronic, or Unable to determine Diastolic Please specify if Acute, Chronic, or Acute on chronic, or Unable to determine Combined Systolic/Diastolic Please specify if Acute, Chronic, or Acute on chronic, or Unable to determine Other specified Other (explain) Clinically unable to determine (explain) Thank you, Tegan Frankel, CCS, CDIS Use of terms such as suspected, likely, concern for, or probable (associated with a specific diagnosis that is being evaluated, monitored, or treated as if it exists) are acceptable and can be coded in the inpatient setting, when documented at the time of discharge. Please use your independent medical judgment in providing your response. THIS QUERY IS PART OF THE PERMANENT MEDICAL RECORD
--- NOTE | 2024-12-24 14:29 | MHC.CM.PN ---
Pt remains intubated with a pericardial drain: plan is to remove drain and continue sedation wean for extubation. Pt is a LTC resident from [facility] and will return when medically stable. CM to follow
--- NOTE | 2024-12-24 14:54 | HO.WOUND ---
Wound Consult: Initial 59 yr old female admitted to [facility] on 12/17/24 - See progress notes and H&P for detailed history. Wound consult placed for left buttock. Patient agreeable to assessment and photo documentation. RN previously noted picutre of small area of left buttock open, now healed, patient with MASD to buttocks/perineum with area of MASD to left labia. Buttocks Etiology: MASD, scattered red intact spots Wound Bed: intact red, MASD noted to perineum and labia Drainage / Odor: none [place] wound: ? No Induration, Fluctuance or Warmth noted Pain: none Goals of Treatment:Triad paste for moisture barrier ? Recommendations: 1. Turn and Reposition every 2 hours and as needed for patient comfort. Use pillows or wedges to support off loading positions. 2. Off Load all bony prominences with use of pillows and heel boots if needed. Apply Preventative foams where needed. 3. Monitor for incontinence and moisture control, use barrier creams when needed for prevention and treatment. 4. Provide adequate and supplemental nutrition. 5. Order or Continue low air loss mattress. 6. When applicable maintain blood glucose levels per Providers order. Buttocks/perineum: Off Load Pressure with Q2 hr turns and use of pillows - Cleanse with PH balance spray or wipes, pat dry. ?Apply thin layer of Triad to wound bed - only pat and dab no scrub and rub when soiling occurs. Reapply thin layer PRN after each episode of incontinence. Re-consult wound care Nurse for wound deterioration or wound changes.
[2024-12-24 17:40] LABS: Glucose, Whole Blood 167 mg/dL (60-115)
--- NOTE | 2024-12-24 19:31 | PM.PNCARD ---
Subjective Subjective Date of Service: 12/24/24 Principal diagnosis: Pericardial tamponade Interval history: seen and examined at bedside. Physical Exam Vital Signs: Last Vital Signs Temp 99.7 F 12/24/24 19:00 Pulse 116 H 12/24/24 19:00 Resp 21 H 12/24/24 19:00 BP 129/85 12/24/24 19:00 Pulse Ox 90 L 12/24/24 19:00 O2 Del Method High Flow Nasal Cannula 12/24/24 19:00 O2 Flow Rate 50 12/24/24 19:00 FiO2 65 12/24/24 19:00 BMI result Body Mass Index 27.3 GENERAL APPEARANCE: Sedated and intubated. NECK: no carotid bruit, mild jugular venous distention. SKIN: no suspicious lesions, warm and dry. HEART: no murmurs, regular rate and rhythm. LUNGS: clear to auscultation anteriorly. EXTREMITIES: no edema. PERIPHERAL PULSES: equal. NEUROLOGIC: Sedated. Objective Labs and Meds 12/24/24 05:31 12/24/24 05:31 Lab results: Laboratory Results - last 24 hr 12/23/24 12/23/24 12/23/24 20:03 22:43 23:59 WBC RBC Hgb Hct MCV MCH MCHC RDW Plt Count MPV Immature Gran % (Auto) Neut % (Auto) Lymph % (Auto) [place] % (Auto) Eos % (Auto) Baso % (Auto) Lymph # (Auto) [place] # (Auto) Eos # (Auto) Baso # (Auto) Abs Immat Gran (auto) Absolute Neuts (auto) Absolute Nucleated RBC Nucleated RBC % (auto) VBG pH 7.59 H VBG pCO2 25 VBG pO2 161 VBG HCO3 24 VBG O2 Saturation 99.0 VBG Base Excess 4.0 Sodium 145 Potassium 2.6 L* D Chloride 108 Carbon Dioxide 24 Anion Gap 16 BUN 14 Creatinine 0.71 Estim Creat Clear Calc 77.9 Estimated GFR > 60 POC Glucose 118 H Random Glucose 114 Calcium 8.8 Phosphorus 3.4 Magnesium 1.8 Albumin 3.7 12/24/24 12/24/24 12/24/24 05:31 05:34 06:13 WBC 10.8 RBC 3.83 L Hgb 8.7 L Hct 26.5 L MCV 69.2 L MCH 22.7 L MCHC 32.8 RDW 16.0 Plt Count 398 MPV 9.7 Immature Gran % (Auto) 0.7 H Neut % (Auto) 72.1 Lymph % (Auto) 14.1 L [place] % (Auto) 8.0 Eos % (Auto) 4.7 H Baso % (Auto) 0.4 Lymph # (Auto) 1.5 [place] # (Auto) 0.9 Eos # (Auto) 0.5 H Baso # (Auto) 0.0 Abs Immat Gran (auto) 0.08 H Absolute Neuts (auto) 7.8 Absolute Nucleated RBC 0.000 Nucleated RBC % (auto) 0.0 VBG pH 7.46 H VBG pCO2 30 VBG pO2 68 VBG HCO3 22 VBG O2 Saturation 91.0 VBG Base Excess -0.8 Sodium 144 Potassium 4.7 D Chloride 114 H Carbon Dioxide 22 Anion Gap 13 BUN 19 H Creatinine 0.84 Estim Creat Clear Calc 65.9 Estimated GFR > 60 POC Glucose 147 H Random Glucose 140 H Calcium 9.2 Phosphorus 2.1 L Magnesium 1.8 Albumin 3.5 12/24/24 12/24/24 11:49 17:36 WBC RBC Hgb Hct MCV MCH MCHC RDW Plt Count MPV Immature Gran % (Auto) Neut % (Auto) Lymph % (Auto) [place] % (Auto) Eos % (Auto) Baso % (Auto) Lymph # (Auto) [place] # (Auto) Eos # (Auto) Baso # (Auto) Abs Immat Gran (auto) Absolute Neuts (auto) Absolute Nucleated RBC Nucleated RBC % (auto) VBG pH VBG pCO2 VBG pO2 VBG HCO3 VBG O2 Saturation VBG Base Excess Sodium Potassium Chloride Carbon Dioxide Anion Gap BUN Creatinine Estim Creat Clear Calc Estimated GFR POC Glucose 160 H 167 H Random Glucose Calcium Phosphorus Magnesium Albumin Progress Note: A&P Assessment and plan (1) Pericardial effusion with cardiac tamponade: Status: Acute Plan [age] year female with pericardial effusion and clinical pericardial tamponade status post pericardiocentesis. Echo is showing stable small effusion. Pericardial drain can be removed today. c/w antiinflammatory medications. Thank you for allowing me to participate in the care of your patient. Please feel free to contact me if you have any questions. Time Spent With Patient Time: Total time managing care of this patient today ____ minutes. Progress Note: Quality Stroke Does the patient have a stroke diagnosis?: No Procedures Date of Service Date of Service: 12/24/24
[2024-12-24 20:30] LABS: Albumin Level 4.2 g/dL (3.5-5.0); Anion Gap 20 (12-20); Blood Urea Nitrogen 18 mg/dL (9-16); Calcium 10.2 mg/dL (8.4-10.2); Carbon Dioxide 24 mmol/L (22-29); Chloride 108 mmol/L (96-108); Creatinine Clr Calc Pharmacy 77.9; Estimated Glomerular Filt Rate > 60; Magnesium 1.9 mg/dL (1.6-2.6); Potassium 4.0 mmol/L (3.3-5.1); Sodium 148 mmol/L (135-145)
[2024-12-24 23:59] LABS: Glucose, Whole Blood 171 mg/dL (60-115)
[2024-12-25] VITALS (22 sets, daily range): BP systolic 109–155; BP diastolic 71–98; PULSE 73–137; RESP 17–38; TEMP 36.9–37.9; O2SAT 88–93; BMI 26.7
[2024-12-25 05:32] LABS: VBG HCO3 24 mmol/L (22-26); VBG O2 % Saturation 94.0 %
[2024-12-25 05:48] LABS: Venous Blood Gas Refer to POC result
[2024-12-25 06:00] LABS: MANUAL DIFF FLAG NO
[2024-12-25 06:16] LABS: Hematocrit 32.1 % (37.0-47.0); Hemoglobin 10.4 g/dl (12.0-16.0); Imm Gran Abs Auto 0.13 X10*3/uL (0.00-0.03); Imm Gran Pct Auto 1.1 % (0.0-0.4); Lymphocytes Absolute Auto 1.0 X10*3/uL (1.2-4.9); Mean Corpuscular HGB Conc 32.4 g/dl (31.0-35.0); Mean Corpuscular Hemoglobin 22.1 pg (27.0-33.0); Mean Corpuscular Volume 68.3 fL (80.0-98.0); NRBC Abs Auto 0.000 X10*3/uL (0.0-0.012); NRBC Pct Auto 0.0 /100WBC (0.0-0.2); Platelet Count 528 X10*3/uL (160-400); Red Blood Count 4.70 X10*6/uL (4.20-5.50); White Blood Count 11.6 X10*3/uL (4.8-10.8)
[2024-12-25 06:18] LABS: Albumin Level 4.0 g/dL (3.5-5.0); Anion Gap 20 (12-20); Blood Urea Nitrogen 21 mg/dL (9-16); Calcium 10.5 mg/dL (8.4-10.2); Carbon Dioxide 24 mmol/L (22-29); Chloride 109 mmol/L (96-108); Creatinine Clr Calc Pharmacy 83.9; Estimated Glomerular Filt Rate > 60; Magnesium 2.1 mg/dL (1.6-2.6); Potassium 3.6 mmol/L (3.3-5.1); Sodium 149 mmol/L (135-145)
[2024-12-25] MEDS: Potassium Chloride/H20 10 MEQ/100 ML PIGGYBACK 100 MEQ IV ×2 (07:54→08:55)
[2024-12-25] MEDS: 0.9 % Sodium Chloride Flush 3 ML SYRINGE IVFLUSH ×2 (07:57→17:07)
[2024-12-25] MEDS: Furosemide 20 MG/2 ML VIAL 40 MG IVPUSH ×2 (08:54→17:13)
--- NOTE | 2024-12-25 10:40 | P.PNCA_ITS ---
Subjective Subjective Date of Service: 12/25/24 Principal diagnosis: Pericardial tamponade Interval history: Seen and examined at bedside. Quite agitated and confused. Physical Exam Vital Signs: Last Vital Signs Temp 99.9 F 12/25/24 09:00 Pulse 120 H 12/25/24 09:00 Resp 20 12/25/24 09:00 BP 145/94 H 12/25/24 09:00 Pulse Ox 91 L 12/25/24 09:00 O2 Del Method High Flow Nasal Cannula 12/25/24 09:00 O2 Flow Rate 50 12/25/24 09:00 FiO2 65 12/25/24 09:00 BMI result Body Mass Index 26.7 GENERAL APPEARANCE: Extubated yesterday. Agitated and confused. NECK: no carotid bruit, no jugular venous distention. SKIN: no suspicious lesions, warm and dry. HEART: no murmurs, regular rate and rhythm. Tachycardic. Abdomen: Soft, mild tenderness epigastric region. LUNGS: clear to auscultation anteriorly. EXTREMITIES: no edema. PERIPHERAL PULSES: equal. NEUROLOGIC: Sedated. Objective Labs and Meds 12/25/24 05:27 12/25/24 05:27 Lab results: Laboratory Results - last 24 hr 12/24/24 12/24/24 12/24/24 11:49 17:36 19:56 WBC RBC Hgb Hct MCV MCH MCHC RDW Plt Count MPV Immature Gran % (Auto) Neut % (Auto) Lymph % (Auto) [place] % (Auto) Eos % (Auto) Baso % (Auto) Lymph # (Auto) [place] # (Auto) Eos # (Auto) Baso # (Auto) Abs Immat Gran (auto) Absolute Neuts (auto) Absolute Nucleated RBC Nucleated RBC % (auto) VBG pH VBG pCO2 VBG pO2 VBG HCO3 VBG O2 Saturation VBG Base Excess Sodium 148 H Potassium 4.0 Chloride 108 Carbon Dioxide 24 Anion Gap 20 BUN 18 H Creatinine 0.71 Estim Creat Clear Calc 77.9 Estimated GFR > 60 POC Glucose 160 H 167 H Random Glucose 161 H Calcium 10.2 D Phosphorus 3.9 Magnesium 1.9 Albumin 4.2 12/24/24 12/25/24 12/25/24 23:55 05:27 05:28 WBC 11.6 H RBC 4.70 D Hgb 10.4 L Hct 32.1 L D MCV 68.3 L MCH 22.1 L MCHC 32.4 RDW 15.7 Plt Count 528 H D MPV 10.2 Immature Gran % (Auto) 1.1 H Neut % (Auto) 81.0 H Lymph % (Auto) 8.6 L [place] % (Auto) 8.0 Eos % (Auto) 1.0 Baso % (Auto) 0.3 Lymph # (Auto) 1.0 L [place] # (Auto) 0.9 Eos # (Auto) 0.1 Baso # (Auto) 0.0 Abs Immat Gran (auto) 0.13 H Absolute Neuts (auto) 9.4 H Absolute Nucleated RBC 0.000 Nucleated RBC % (auto) 0.0 VBG pH 7.58 H VBG pCO2 25 VBG pO2 75 VBG HCO3 24 VBG O2 Saturation 94.0 VBG Base Excess 3.5 Sodium 149 H Potassium 3.6 Chloride 109 H Carbon Dioxide 24 Anion Gap 20 BUN 21 H Creatinine 0.66 Estim Creat Clear Calc 83.9 Estimated GFR > 60 POC Glucose 171 H Random Glucose 184 H Calcium 10.5 H Phosphorus 3.2 Magnesium 2.1 Albumin 4.0 Progress Note: A&P Assessment and plan (1) Pericardial effusion with cardiac tamponade: Status: Acute Plan [age] year female with pericardial effusion and clinical pericardial tamponade status post pericardiocentesis. Pericardial drain has been removed. c/w antiinflammatory medications. Continue antibiotics for aspiration. Thank you for allowing me to participate in the care of your patient. Please feel free to contact me if you have any questions. Time Spent With Patient Time: Total time managing care of this patient today ____ minutes. Progress Note: Quality Stroke Does the patient have a stroke diagnosis?: No Procedures Date of Service Date of Service: 12/25/24
--- NOTE | 2024-12-25 10:55 | MHC.CLN ---
F/U PT EXTUBATED DISCUSSED AT ROUNDS WITH MD REMAINS NPO-PLAN FOR MARKETING PERFORMANCE ANALYST EVAL WHEN DIET TO ADVANCE; RECOMMEND REGULAR WITH MARKETING PERFORMANCE ANALYST RECOMMENDATIONS FOLLOWING FOR DIET ADVANCEMENT
--- NOTE | 2024-12-25 11:10 | P.PNCC_ITS ---
Subjective Subjective Date of Service: 12/25/24 Interval History: 59-year-old lady with underlying COPD, hypothyroidism, schizoaffective disorder admitted on 12/17/2024 with alteration in mental status and hypoxia patient was empirically treated with broad-spectrum antibiotics and IV fluid resuscitation for sepsis with worsening hypoxemia. Her 2D echocardiogram demonstrated large pericardial effusion, likely chronic, but now patient is status post pericardial drain placement on 12/19/2024. Hospital course further complicated by pulmonary aspiration requiring intubation 12/22/2024. Extubated uneventfully on 12/24/2024. No events overnight. Critical Care Time (minutes): 0 Physical Exam 2 Vital Signs: Vital Signs: Last Vital Signs Temp 99.3 F 12/25/24 10:00 Pulse 134 H 12/25/24 10:00 Resp 23 H 12/25/24 10:00 BP 129/74 12/25/24 10:00 Pulse Ox 89 L 12/25/24 10:00 O2 Del Method Oxymask 12/25/24 10:00 O2 Flow Rate 12 12/25/24 10:00 FiO2 65 12/25/24 09:00 BMI result Body Mass Index 26.7 Const: General: alert, awake and anxious Eyes: Sclerae: sclerae normal EOM: EOMs intact bilaterally Neck: Neck: Yes no lymphadenopathy, Yes trachea midline and Yes supple Resp: Effort & Inspection: normal respiratory effort and no respiratory distress Auscultation: crackles (Bilateral) Cardio: Rate: tachycardic Rhythm: regular rhythm Heart sounds: no gallops, no murmurs and no rubs GI: Palpation (GI): Soft to palpation and Other GI palpation findings present ( Nontender) Auscultation: normal bowel sounds Extrem: General: Yes no pedal edema, No clubbing and No cyanosis Objective Data Labs 12/25/24 05:27 12/25/24 05:27 Labs: Laboratory Results - last 24 hr 12/24/24 12/24/24 12/24/24 11:49 17:36 19:56 WBC RBC Hgb Hct MCV MCH MCHC RDW Plt Count MPV Immature Gran % (Auto) Neut % (Auto) Lymph % (Auto) [place] % (Auto) Eos % (Auto) Baso % (Auto) Lymph # (Auto) [place] # (Auto) Eos # (Auto) Baso # (Auto) Abs Immat Gran (auto) Absolute Neuts (auto) Absolute Nucleated RBC Nucleated RBC % (auto) VBG pH VBG pCO2 VBG pO2 VBG HCO3 VBG O2 Saturation VBG Base Excess Sodium 148 H Potassium 4.0 Chloride 108 Carbon Dioxide 24 Anion Gap 20 BUN 18 H Creatinine 0.71 Estim Creat Clear Calc 77.9 Estimated GFR > 60 POC Glucose 160 H 167 H Random Glucose 161 H Calcium 10.2 D Phosphorus 3.9 Magnesium 1.9 Albumin 4.2 12/24/24 12/25/24 12/25/24 23:55 05:27 05:28 WBC 11.6 H RBC 4.70 D Hgb 10.4 L Hct 32.1 L D MCV 68.3 L MCH 22.1 L MCHC 32.4 RDW 15.7 Plt Count 528 H D MPV 10.2 Immature Gran % (Auto) 1.1 H Neut % (Auto) 81.0 H Lymph % (Auto) 8.6 L [place] % (Auto) 8.0 Eos % (Auto) 1.0 Baso % (Auto) 0.3 Lymph # (Auto) 1.0 L [place] # (Auto) 0.9 Eos # (Auto) 0.1 Baso # (Auto) 0.0 Abs Immat Gran (auto) 0.13 H Absolute Neuts (auto) 9.4 H Absolute Nucleated RBC 0.000 Nucleated RBC % (auto) 0.0 VBG pH 7.58 H VBG pCO2 25 VBG pO2 75 VBG HCO3 24 VBG O2 Saturation 94.0 VBG Base Excess 3.5 Sodium 149 H Potassium 3.6 Chloride 109 H Carbon Dioxide 24 Anion Gap 20 BUN 21 H Creatinine 0.66 Estim Creat Clear Calc 83.9 Estimated GFR > 60 POC Glucose 171 H Random Glucose 184 H Calcium 10.5 H Phosphorus 3.2 Magnesium 2.1 Albumin 4.0 Microbiology Microbiology Results: Microbiology 12/22/24 20:59 Blood - Venous Blood Culture - Preliminary No growth after 48 hours. 12/19/24 18:25 Pericardial Fluid Gram Stain - Final 12/19/24 18:25 Pericardial Fluid Anaerobic Culture - Final NO GROWTH AFTER 5 DAYS 12/19/24 18:25 Pericardial Fluid Body Fluid Culture - Final No growth after 2 days 12/22/24 02:49 Blood - Venous Blood Culture - Preliminary No growth after 48 hours. 12/22/24 02:49 Blood - Venous Blood Culture - Preliminary No growth after 48 hours. 12/17/24 08:52 Blood - Venous Blood Culture - Final No growth after 5 days. 12/17/24 08:42 Blood - Venous Blood Culture - Final No growth after 5 days. Progress Note: A&P Assessment and plan (1) Schizoaffective disorder: Status: Acute (2) Anxiety: Status: Acute (3) Pericardial effusion: Status: Acute (4) Pulmonary edema: Status: Acute (5) Acute respiratory failure with hypoxia: Status: Acute Plan Assessment: 59-year-old lady with underlying COPD, schizoaffective disorder, and hypothyroidism admitted 12/17/2024 with encephalopathy and progressive hypoxia and treated for pneumonia with hospital course significant for finding a large pericardial effusion, now status post pericardial drain, and pulmonary aspiration now requiring ventilatory support. Plan: Neuro: No acute issues. Cardiac: Large pericardial effusion, likely chronic, now status post pericardial drain. Cardiology service care appreciated. Pericardial drain removed per Cardiology recommendation. Continues on empiric colchicine for inflammatory pericarditis. Pulmonary: Acute respiratory failure secondary to pulmonary aspiration and pulmonary edema requiring ventilatory support, extubated uneventfully on 12/24/2024. Continue to titrate off supplemental oxygen as tolerated. Renal: No acute issues. Endo: No acute issues. GI: No acute issues. ID: Completed antibiotic course for aspiration pneumonia. Heme/Onc: No acute issues. Psych: Underlying schizoaffective disorder, restarted on outpatient regimen. Miscellaneous: No acute issues. Prophylaxis: Lovenox Diet: Pending swallow evaluation Quality Stroke Does the patient have a stroke diagnosis?: No VTE Prior VTE?: No VTE Risk Level:: Medical - moderate - high VTE Device Contraindication: N/A - Device Ordered VTE Drug Contraindication: N/A - Med Ordered
[2024-12-25 12:02] LABS: Glucose, Whole Blood 207 mg/dL (60-115)
[2024-12-25 18:31] LABS: Glucose, Whole Blood 183 mg/dL (60-115)
--- NOTE | 2024-12-25 19:56 | PC.NURSE ---
pt transferred to [facility] from ICU and settled in bed. VS as noted, O2 via oxymask at 15 L with sats 88-91%. pt repositioned for comfort/skin. 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
[2024-12-26] VITALS (15 sets, daily range): BP systolic 109–129; BP diastolic 66–96; PULSE 81–132; RESP 16–30; TEMP 36.1–37.1; O2SAT 74–98; BMI 23.5
--- NOTE | 2024-12-26 | ECG_ITS ---
Test Reason : Tachycardia Blood Pressure : */* mmHG Vent. Rate : 128 BPM Atrial Rate : 128 BPM P-R Int : 176 ms QRS Dur : 66 ms QT Int : 346 ms P-R-T Axes : 33 -23 65 degrees QTcB Int : 505 ms Sinus tachycardia with Premature atrial complexes Left ventricular hypertrophy with repolarization abnormality ( R in aVL ) Abnormal ECG When compared with ECG of 19-Dec-2024 19:51, Nonspecific T wave abnormality, improved in Inferior leads Nonspecific T wave abnormality, improved in Anterolateral leads Referred By: Rober Riggins Electronically Signed By: Henri Acosta
[2024-12-26 00:20] LABS: Glucose, Whole Blood 170 mg/dL (60-115)
[2024-12-26 01:42] LABS: ABG HCO3 26 mmol/L (22-26); ABG O2 % Saturation 92.0 %
[2024-12-26] MEDS: Furosemide 100 MG/10 ML VIAL 60 MG IVPUSH (01:44)
[2024-12-26] MEDS: metroNIDAZOLE/NS 500 MG/100 ML PIGGYBACK 100 MG IV ×3 (01:45→18:11)
[2024-12-26] MEDS: cefEPime HCl/D5W 2 GM/50 ML PIGGYBACK IV ×2 (01:45→13:13)
[2024-12-26] MEDS: iohexoL 350 MG/ML 100 ML INFUS..BTL 65 ML IV (02:56)
[2024-12-26 03:10] LABS: ABG Refer to POC result
[2024-12-26 04:04] LABS: Troponin-I High Sensitivity 31.3 ng/L (<3.5-17.0)
--- NOTE | 2024-12-26 04:07 | PM.EVENT ---
Event Note Date of Service: 12/26/24 Event Note: Contacted him multiple occasions by nursing and asked to evaluate patient at bedside because the patient is requiring more oxygen supplementation (high-flow) and that the patient does not look good. On evaluation, patient seems confused but alert and was not answering simple questions. Cardiopulmonary exam is remarkable for tachycardic and irregular heartbeat and very mild dry crackles to the lower extremities with the wheezing or rhonchi. CXR stat was obtained and is basically unchanged from prior: Moderate diffuse bilateral coarse interstitial densities. A chest CTA was obtained and showed no PE. It did showed diffuse ground-glass and reticular opacities with a small pleural effusion progress compared to 12/17/2024; findings may represent pulmonary edema/ARDS, infection, acute exacerbation of chronic lung disease and diminutive bilateral atria with prominent interatrial fat density, which may represent an atrial septal lipoma versus prominent mediastinal fat from diminutive atria. She received an extra dose of Lasix IV and restart antibiotic therapy IV, this time with cefepime and and Flagyl for aspiration coverage. Subsequently, gentle hydration with D5 was started as the patient is NPO endorse hypernatremia. I discussed case with Sarah as the patient was in ICU recently. She evaluated the patient and felt that the patient's behavior is the same it was before and that the patient has schizoaffective disorder. The recommendations were to continue with high-flow and I agree with IV antibiotics and diuresis. Patient's troponin increased to 31.3 likely secondary to demand ischemia secondary to ongoing sinus tachycardia is with PACs and couplets. She has been receiving IV metoprolol. There is lactic acidosis likely secondary to hypoxia. Patient is high risk for TACO. Time Spent With Patient Time: Total time managing care of this patient today ____ minutes.
[2024-12-26 04:18] LABS: Alanine Aminotransferase 29 U/L (0-31); Albumin Level 4.1 g/dL (3.5-5.0); Alkaline Phosphatase 277 U/L (39-117); Anion Gap 25 (12-20); Aspartate Amino Transferase 31 U/L (5-31); Blood Urea Nitrogen 53 mg/dL (9-16); Calcium 10.9 mg/dL (8.4-10.2); Carbon Dioxide 22 mmol/L (22-29); Chloride 108 mmol/L (96-108); Creatinine Clr Calc Pharmacy 39.1; Estimated Glomerular Filt Rate 38; Magnesium 2.6 mg/dL (1.6-2.6); Potassium 5.7 mmol/L (3.3-5.1); Sodium 149 mmol/L (135-145); Total Protein 7.8 g/dL (6.5-8.0)
[2024-12-26 04:49] LABS: Glucose, Whole Blood 156 mg/dL (60-115)
[2024-12-26 05:41] LABS: Reflex Lactate? Lactic Acid Added
[2024-12-26 05:59] LABS: MANUAL DIFF FLAG NO
[2024-12-26 05:59] LABS: Venous Blood Gas Refer to POC result
[2024-12-26 06:01] LABS: Glucose, Whole Blood 310 mg/dL (60-115)
[2024-12-26 06:03] LABS: Hematocrit 35.1 % (37.0-47.0); Hemoglobin 11.5 g/dl (12.0-16.0); Imm Gran Abs Auto 0.11 X10*3/uL (0.00-0.03); Imm Gran Pct Auto 0.8 % (0.0-0.4); Lymphocytes Absolute Auto 1.0 X10*3/uL (1.2-4.9); Mean Corpuscular HGB Conc 32.8 g/dl (31.0-35.0); Mean Corpuscular Hemoglobin 22.5 pg (27.0-33.0); Mean Corpuscular Volume 68.6 fL (80.0-98.0); NRBC Abs Auto 0.030 X10*3/uL (0.0-0.012); NRBC Pct Auto 0.2 /100WBC (0.0-0.2); Platelet Count 654 X10*3/uL (160-400); Red Blood Count 5.12 X10*6/uL (4.20-5.50); White Blood Count 13.1 X10*3/uL (4.8-10.8)
[2024-12-26 06:04] LABS: VBG HCO3 29 mmol/L (22-26); VBG O2 % Saturation 77.0 %
[2024-12-26 06:39] LABS: ~Lactic Acid-LAB USE ONLY 3.6 mmol/L (0.5-2.0)
[2024-12-26 06:42] LABS: Albumin Level 4.0 g/dL (3.5-5.0); Anion Gap 22 (12-20); Blood Urea Nitrogen 57 mg/dL (9-16); Calcium 11.1 mg/dL (8.4-10.2); Carbon Dioxide 27 mmol/L (22-29); Chloride 107 mmol/L (96-108); Creatinine Clr Calc Pharmacy 32.1; Estimated Glomerular Filt Rate 35; Magnesium 2.6 mg/dL (1.6-2.6); Potassium 2.9 mmol/L (3.3-5.1); Sodium 153 mmol/L (135-145)
[2024-12-26 07:59] LABS: Reflex Lactate? 2 Y
--- NOTE | 2024-12-26 08:11 | PC.NURSE ---
received report on patient and resumed care at 1900. patient throughout shift required for her oxygen needs to be increased. at the start of shift, patient was on 15L oxymask and was transitioned to high flow NC. 50L 60%. Pt remained tachycardic in 110s-120s and occasionally in 130s non sustaining with frequent couplets throughout shift.. Dr Aquino contacted, EKG ordered, x1 lasix ordered. CT ordered. All of which were obtained. Dr Aquino to bedside to assess patient along with ICU. ABGs ordered and obtained. Labs drawn and potassium came back at 5.7, see orders for hyperK (bicarb, IV insulin, dextrose, IVF.) Antibiotics restarted. patients mental status remained the same throughout shift (unable to follow most commands, unable to assess mental status due to not answering questions). alert and arousable to name. at this time, patient is on 50L 100% NC with an additional 10L on nonrebreather. Sats >88% (goal per orders). Gave report to oncoming RN at 0700.
[2024-12-26] MEDS: Potassium Chloride/H20 10 MEQ/100 ML PIGGYBACK 100 MEQ IV ×4 (08:21→14:24)
[2024-12-26] MEDS: KCl 20 mEq in 5% Dex/0.45% Sod 20 MEQ/1,000 ML IV.SOLN 80 MEQ IVCONT ×2 (08:21→20:31)
[2024-12-26] MEDS: 0.9 % Sodium Chloride Flush 3 ML SYRINGE IVFLUSH (08:23)
--- NOTE | 2024-12-26 09:25 | PC.RT ---
ABG att x 3. pt awake but moving constantly presenting a danger for pt and practitioner. MD aware. Lab in room, vbg obtained.
[2024-12-26 09:54] LABS: Venous Blood Gas Refer to POC result
[2024-12-26 09:55] LABS: VBG HCO3 33 mmol/L (22-26); VBG O2 % Saturation 90.0 %
[2024-12-26 09:57] LABS: ~Lactic Acid-LAB USE ONLY 2.6 mmol/L (0.5-2.0)
[2024-12-26 12:47] LABS: Glucose, Whole Blood 196 mg/dL (60-115)
--- NOTE | 2024-12-26 14:27 | P.PNCA_ITS ---
Subjective Subjective Date of Service: 12/26/24 Principal diagnosis: Pericardial tamponade Interval history: Seen and examined at bedside. Disoriented. on high flow NC. Physical Exam Vital Signs: Last Vital Signs Temp 97.0 F 12/26/24 11:11 Pulse 113 H 12/26/24 11:11 Resp 22 H 12/26/24 11:15 BP 120/75 12/26/24 11:11 Pulse Ox 96 12/26/24 11:11 O2 Del Method High Flow Nasal Cannula 12/26/24 11:11 O2 Flow Rate 50 12/26/24 11:11 FiO2 100 12/26/24 11:11 BMI result Body Mass Index 23.5 GENERAL APPEARANCE: Disoriented. SOB, on high flow NC NECK: no carotid bruit, no jugular venous distention. SKIN: no suspicious lesions, warm and dry. HEART: no murmurs, Tachycardic. Abdomen: Soft, mild tenderness epigastric region. LUNGS: clear to auscultation anteriorly. EXTREMITIES: no edema. PERIPHERAL PULSES: equal. NEUROLOGIC: Disoriented. Objective Labs and Meds 12/26/24 05:53 12/26/24 05:53 Lab results: Laboratory Results - last 24 hr 12/25/24 12/26/24 12/26/24 18:27 00:15 01:39 WBC RBC Hgb Hct MCV MCH MCHC RDW Plt Count MPV Immature Gran % (Auto) Neut % (Auto) Lymph % (Auto) [place] % (Auto) Eos % (Auto) Baso % (Auto) Lymph # (Auto) [place] # (Auto) Eos # (Auto) Baso # (Auto) Abs Immat Gran (auto) Absolute Neuts (auto) Absolute Nucleated RBC Nucleated RBC % (auto) O2 Saturation 92.0 ABG pH at Pt Temp 7.59 H ABG pCO2 at Pt Temp 28 L ABG pO2 at Pt Temp 72 L ABG HCO3 26 ABG Base Excess (Actual) 6.0 VBG pH VBG pCO2 VBG pO2 VBG HCO3 VBG O2 Saturation VBG Base Excess Sodium Potassium Chloride Carbon Dioxide Anion Gap BUN Creatinine Estim Creat Clear Calc Estimated GFR POC Glucose 183 H 170 H Random Glucose Lactic Acid Lactic Acid F/U @ 2Hr Lactic Acid F/U @ 4Hr Calcium Phosphorus Magnesium Total Bilirubin AST ALT Alkaline Phosphatase Troponin I High Sens Total Protein Albumin 12/26/24 12/26/24 12/26/24 03:34 04:45 05:53 WBC 13.1 H RBC 5.12 Hgb 11.5 L Hct 35.1 L MCV 68.6 L MCH 22.5 L MCHC 32.8 RDW 15.7 Plt Count 654 H MPV 11.1 Immature Gran % (Auto) 0.8 H Neut % (Auto) 80.1 H Lymph % (Auto) 7.9 L [place] % (Auto) 10.9 Eos % (Auto) 0.1 Baso % (Auto) 0.2 Lymph # (Auto) 1.0 L [place] # (Auto) 1.4 H Eos # (Auto) 0.0 Baso # (Auto) 0.0 Abs Immat Gran (auto) 0.11 H Absolute Neuts (auto) 10.5 H Absolute Nucleated RBC 0.030 H Nucleated RBC % (auto) 0.2 O2 Saturation ABG pH at Pt Temp ABG pCO2 at Pt Temp ABG pO2 at Pt Temp ABG HCO3 ABG Base Excess (Actual) VBG pH VBG pCO2 VBG pO2 VBG HCO3 VBG O2 Saturation VBG Base Excess Sodium 149 H 153 H Potassium 5.7 H D 2.9 L* D Chloride 108 107 Carbon Dioxide 22 27 Anion Gap 25 H 22 H BUN 53 H 57 H Creatinine 1.40 1.52 H Estim Creat Clear Calc 39.1 32.1 Estimated GFR 38 35 POC Glucose 156 H Random Glucose 185 H 339 H Lactic Acid 2.5 H* Lactic Acid F/U @ 2Hr 3.6 H* Lactic Acid F/U @ 4Hr Calcium 10.9 H 11.1 H Phosphorus 3.6 Magnesium 2.6 2.6 Total Bilirubin 0.6 AST 31 ALT 29 Alkaline Phosphatase 277 H Troponin I High Sens 31.3 H D Total Protein 7.8 Albumin 4.1 4.0 12/26/24 12/26/24 12/26/24 05:57 09:27 09:38 WBC RBC Hgb Hct MCV MCH MCHC RDW Plt Count MPV Immature Gran % (Auto) Neut % (Auto) Lymph % (Auto) [place] % (Auto) Eos % (Auto) Baso % (Auto) Lymph # (Auto) [place] # (Auto) Eos # (Auto) Baso # (Auto) Abs Immat Gran (auto) Absolute Neuts (auto) Absolute Nucleated RBC Nucleated RBC % (auto) O2 Saturation ABG pH at Pt Temp ABG pCO2 at Pt Temp ABG pO2 at Pt Temp ABG HCO3 ABG Base Excess (Actual) VBG pH 7.61 H* 7.56 H VBG pCO2 29 36 VBG pO2 54 71 VBG HCO3 29 H 33 H VBG O2 Saturation 77.0 90.0 VBG Base Excess 8.9 10.4 Sodium Potassium Chloride Carbon Dioxide Anion Gap BUN Creatinine Estim Creat Clear Calc Estimated GFR POC Glucose 310 H Random Glucose Lactic Acid Lactic Acid F/U @ 2Hr Lactic Acid F/U @ 4Hr 2.6 H* Calcium Phosphorus Magnesium Total Bilirubin AST ALT Alkaline Phosphatase Troponin I High Sens Total Protein Albumin 12/26/24 12:41 WBC RBC Hgb Hct MCV MCH MCHC RDW Plt Count MPV Immature Gran % (Auto) Neut % (Auto) Lymph % (Auto) [place] % (Auto) Eos % (Auto) Baso % (Auto) Lymph # (Auto) [place] # (Auto) Eos # (Auto) Baso # (Auto) Abs Immat Gran (auto) Absolute Neuts (auto) Absolute Nucleated RBC Nucleated RBC % (auto) O2 Saturation ABG pH at Pt Temp ABG pCO2 at Pt Temp ABG pO2 at Pt Temp ABG HCO3 ABG Base Excess (Actual) VBG pH VBG pCO2 VBG pO2 VBG HCO3 VBG O2 Saturation VBG Base Excess Sodium Potassium Chloride Carbon Dioxide Anion Gap BUN Creatinine Estim Creat Clear Calc Estimated GFR POC Glucose 196 H Random Glucose Lactic Acid Lactic Acid F/U @ 2Hr Lactic Acid F/U @ 4Hr Calcium Phosphorus Magnesium Total Bilirubin AST ALT Alkaline Phosphatase Troponin I High Sens Total Protein Albumin Progress Note: A&P Assessment and plan (1) Pericardial effusion: Status: Acute (2) Pneumonia: Status: Acute (3) Encephalopathy acute: Status: Acute Plan 59 female with pericardial tamponade s/p drainage and removal of drain. she had aspiration event and was intubated. Post extubation quite disoriented and agitated. Unsure about baseline. On high flow NC. Clinically looks worse. Prognosis guarded. Will check CXR to see if there is any obvious change to help improve resp status. It appears she has psychiatric history but baseline is unknown to me. We will follow along. Time Spent With Patient Time: Total time managing care of this patient today ____ minutes. Progress Note: Quality Stroke Does the patient have a stroke diagnosis?: No Procedures Date of Service Date of Service: 12/26/24
--- NOTE | 2024-12-26 14:30 | HO.PM.IMPN ---
Subjective Subjective Date of Service: 01/01/25 Interval History: 59-year-old lady with underlying COPD, hypothyroidism, schizoaffective disorder admitted on 12/17/2024 with alteration in mental status and hypoxia patient was empirically treated with broad-spectrum antibiotics and IV fluid resuscitation for sepsis with worsening hypoxemia. Her 2D echocardiogram demonstrated large pericardial effusion, likely chronic, but now patient is status post pericardial drain placement on 12/19/2024. Hospital course further complicated by pulmonary aspiration requiring intubation 12/22/2024. Extubated uneventfully on 12/24/2024 and has been quite delirious, hypoxic and requiring high amount of oxygen.. Over with periods of hypoxia and alkalotic on blood gas, Highflow O2 uptitrated Review of Systems Unable to obtain Physical Exam Vital Signs: Vital Signs: Last Vital Signs Temp 97.0 F 12/26/24 11:11 Pulse 113 H 12/26/24 11:11 Resp 22 H 12/26/24 11:15 BP 120/75 12/26/24 11:11 Pulse Ox 96 12/26/24 11:11 O2 Del Method High Flow Nasal C annula 12/26/24 11:11 O2 Flow Rate 50 12/26/24 11:11 FiO2 100 12/26/24 11:11 BMI result Body Mass Index 23.5 Objective Data Active Medications Acetaminophen (Acetaminophen 325 Mg Tablet) 650 mg PO Q4H PRN PRN Reason: Fever >101 Last Admin: 12/23/24 18:23 Dose: 650 mg Documented By: CAL Chlorhexidine Gluconate (Chlorhexidine Gluc Oral Rinse 15 Ml Mouthwash) 15 ml BUCCAL TID [facility] Last Admin: 12/26/24 11:19 Dose: Not Given Documented By: SHEREE Non-Admin Reason: NPO Colchicine (Colchicine 0.6 Mg Tablet) 0.6 mg PO DAILY [facility] Last Admin: 12/26/24 09:49 Dose: Not Given Documented By: SHEREE Non-Admin Reason: NPO Dextrose (Dextrose 50 % 25 Gm/50 Ml Syringe) 25 gm IVPUSH Q15M PRN; Protocol PRN Reason: per Hypoglycemia Standing Ord. Enoxaparin Sodium (Enoxaparin Sodium 40 Mg/0.4 Ml Syringe) 40 mg SUBCUT Q24H [facility] Last Admin: 12/26/24 13:08 Dose: 40 mg Documented By: SHEREE Furosemide (Furosemide 20 Mg/2 Ml Vial) 40 mg IVPUSH BID@0900,1800 [facility]; Protocol Last Admin: 12/26/24 09:49 Dose: Not Given Documented By: SHEREE Non-Admin Reason: k critically low Glucose (Glucose Gel 15 Gm Gel..Gram.) 15 gm PO Q15M PRN; Protocol PRN Reason: per Hypoglycemia Standing Ord. Hydromorphone HCl (Hydromorphone Hcl 0.5 Mg/0.5 Ml Syringe) 0.5 mg IVPUSH Q3H PRN; Protocol PRN Reason: Work of breathing Cefepime HCl (Maxipime) 2 gm in 50 mls @ 100 mls/hr IV Q12H [facility] Last Infusion: 12/26/24 14:08 Dose: Infused Documented By: SHEREE Metronidazole (Flagyl) 500 mg in 100 mls @ 100 mls/hr IV Q8H [facility] Last Infusion: 12/26/24 11:20 Dose: Infused Documented By: SHEREE Potassium Chloride/Dextrose/Sod Cl (Kcl 20 Meq In 5% Dex/0.45% Sod) 20 meq in 1,000 mls @ 80 mls/hr IVCONT .[id number] [facility] Last Admin: 12/26/24 08:21 Dose: 80 mls/hr Documented By: SHEREE Ibuprofen (Ibuprofen 800 Mg Tablet) 800 mg PO Q8H [facility] Last Admin: 12/26/24 12:49 Dose: Not Given Documented By: SHEREE Non-Admin Reason: NPO Insulin Human Lispro (Insulin Lispro 100 Unit/Ml 3 Ml Vial) 0 unit SUBCUT Q6H [facility]; Protocol Last Admin: 12/26/24 13:08 Dose: 2 unit Documented By: SHEREE Levothyroxine Sodium (Levothyroxine Sodium 100 Mcg/5 Ml Vial) 25 mcg IVPUSH DAILY@0600 [facility] Last Admin: 12/26/24 06:41 Dose: 25 mcg Documented By: NAVID Metoprolol Tartrate (Metoprolol Tartrate 5 Mg/5 Ml Vial) 2.5 mg IVPUSH Q4H [facility]; Protocol Last Admin: 12/26/24 12:35 Dose: 2.5 mg Documented By: SHEREE Quetiapine Fumarate (Quetiapine Fumarate 400 Mg Tablet) 400 mg PO BEDTIME [facility] Last Admin: 12/25/24 20:09 Dose: Not Given Documented By: NAVID Non-Admin Reason: npo Risperidone (Risperidone 2 Mg Tablet) 2 mg PO BEDTIME [facility] Last Admin: 12/25/24 20:09 Dose: Not Given Documented By: NAVID Non-Admin Reason: npo Risperidone (Risperidone 1 Mg Tablet) 1 mg PO DAILY [facility] Last Admin: 12/26/24 11:20 Dose: Not Given Documented By: SHEREE Non-Admin Reason: NPO Sodium Chloride (0.9 % Sodium Chloride Flush 3 Ml Syringe) 3 ml IVFLUSH QSHIFT [facility] Last Admin: 12/26/24 08:23 Dose: 3 ml Documented By: SHEREE Labs 01/01/25 05:11 01/01/25 05:11 Labs: Laboratory Results - last 24 hr 12/25/24 12/26/24 12/26/24 18:27 00:15 01:39 MCV MCH MCHC RDW Plt Count MPV Immature Gran % (Auto) Neut % (Auto) Lymph % (Auto) [place] % (Auto) Eos % (Auto) Baso % (Auto) Lymph # (Auto) [place] # (Auto) Eos # (Auto) Baso # (Auto) Abs Immat Gran (auto) Absolute Neuts (auto) Absolute Nucleated RBC Nucleated RBC % (auto) O2 Saturation 92.0 ABG pH at Pt Temp 7.59 H ABG pCO2 at Pt Temp 28 L ABG pO2 at Pt Temp 72 L ABG HCO3 26 ABG Base Excess (Actual) 6.0 VBG pH VBG pCO2 VBG pO2 VBG HCO3 VBG O2 Saturation VBG Base Excess Anion Gap Estim Creat Clear Calc Estimated GFR POC Glucose 183 H 170 H Random Glucose Lactic Acid Lactic Acid F/U @ 2Hr Lactic Acid F/U @ 4Hr Calcium Phosphorus Magnesium Total Bilirubin AST ALT Alkaline Phosphatase Troponin I High Sens Total Protein Albumin 12/26/24 12/26/24 12/26/24 03:34 04:45 05:53 MCV 68.6 L MCH 22.5 L MCHC 32.8 RDW 15.7 Plt Count 654 H MPV 11.1 Immature Gran % (Auto) 0.8 H Neut % (Auto) 80.1 H Lymph % (Auto) 7.9 L [place] % (Auto) 10.9 Eos % (Auto) 0.1 Baso % (Auto) 0.2 Lymph # (Auto) 1.0 L [place] # (Auto) 1.4 H Eos # (Auto) 0.0 Baso # (Auto) 0.0 Abs Immat Gran (auto) 0.11 H Absolute Neuts (auto) 10.5 H Absolute Nucleated RBC 0.030 H Nucleated RBC % (auto) 0.2 O2 Saturation ABG pH at Pt Temp ABG pCO2 at Pt Temp ABG pO2 at Pt Temp ABG HCO3 ABG Base Excess (Actual) VBG pH VBG pCO2 VBG pO2 VBG HCO3 VBG O2 Saturation VBG Base Excess Anion Gap 25 H 22 H Estim Creat Clear Calc 39.1 32.1 Estimated GFR 38 35 POC Glucose 156 H Random Glucose 185 H 339 H Lactic Acid 2.5 H* Lactic Acid F/U @ 2Hr 3.6 H* Lactic Acid F/U @ 4Hr Calcium 10.9 H 11.1 H Phosphorus 3.6 Magnesium 2.6 2.6 Total Bilirubin 0.6 AST 31 ALT 29 Alkaline Phosphatase 277 H Troponin I High Sens 31.3 H D Total Protein 7.8 Albumin 4.1 4.0 12/26/24 12/26/24 12/26/24 05:57 09:27 09:38 MCV MCH MCHC RDW Plt Count MPV Immature Gran % (Auto) Neut % (Auto) Lymph % (Auto) [place] % (Auto) Eos % (Auto) Baso % (Auto) Lymph # (Auto) [place] # (Auto) Eos # (Auto) Baso # (Auto) Abs Immat Gran (auto) Absolute Neuts (auto) Absolute Nucleated RBC Nucleated RBC % (auto) O2 Saturation ABG pH at Pt Temp ABG pCO2 at Pt Temp ABG pO2 at Pt Temp ABG HCO3 ABG Base Excess (Actual) VBG pH 7.61 H* 7.56 H VBG pCO2 29 36 VBG pO2 54 71 VBG HCO3 29 H 33 H VBG O2 Saturation 77.0 90.0 VBG Base Excess 8.9 10.4 Anion Gap Estim Creat Clear Calc Estimated GFR POC Glucose 310 H Random Glucose Lactic Acid Lactic Acid F/U @ 2Hr Lactic Acid F/U @ 4Hr 2.6 H* Calcium Phosphorus Magnesium Total Bilirubin AST ALT Alkaline Phosphatase Troponin I High Sens Total Protein Albumin 12/26/24 12:41 MCV MCH MCHC RDW Plt Count MPV Immature Gran % (Auto) Neut % (Auto) Lymph % (Auto) [place] % (Auto) Eos % (Auto) Baso % (Auto) Lymph # (Auto) [place] # (Auto) Eos # (Auto) Baso # (Auto) Abs Immat Gran (auto) Absolute Neuts (auto) Absolute Nucleated RBC Nucleated RBC % (auto) O2 Saturation ABG pH at Pt Temp ABG pCO2 at Pt Temp ABG pO2 at Pt Temp ABG HCO3 ABG Base Excess (Actual) VBG pH VBG pCO2 VBG pO2 VBG HCO3 VBG O2 Saturation VBG Base Excess Anion Gap Estim Creat Clear Calc Estimated GFR POC Glucose 196 H Random Glucose Lactic Acid Lactic Acid F/U @ 2Hr Lactic Acid F/U @ 4Hr Calcium Phosphorus Magnesium Total Bilirubin AST ALT Alkaline Phosphatase Troponin I High Sens Total Protein Albumin Assessment and Plan (1) Pericardial effusion with cardiac tamponade: Status: Acute Plan 59-year-old lady with underlying COPD, hypothyroidism, schizoaffective disorder admitted on 12/17/2024 with alteration in mental status and hypoxia patient was empirically treated with broad-spectrum antibiotics and IV fluid resuscitation for sepsis with worsening hypoxemia. Her 2D echocardiogram demonstrated large pericardial effusion, likely chronic, but now patient is status post pericardial drain placement on 12/19/2024. Hospital course further complicated by pulmonary aspiration requiring intubation 12/22/2024. Extubated uneventfully on 12/24/2024 and transffered to floor on Neuro: AMS/metabolic encephalopathy, likely multifactorial d/t underlying illness, infection, post iCU care mnimize potential meds such as narcs, benzo Cardiac: Large pericardial effusion, likely chronic, now status post pericardial drain. Cardiology folllowing. Pericardial drain removed per Cardiology recommendation. Continues on empiric colchicine for inflammatory pericarditis. Pathology showed minimally atypical epithelioid cells, Immunostain work up is pending, Pulmonary: Acute hypoxicrespiratory failure secondary to pulmonary aspiration and pulmonary edema requiring ventilatory support, extubated uneventfully on 12/24/2024. Continue to titrate off supplemental oxygen as tolerated. She is presently on Highflow Renal/Electrolyes: Potassium 2.9 today, replacing with IV K as not able take PO, will recheck. Hypernatremia, from free water deficit, need free water replacement Héctor--new, likely pre renal, IVF and follow Endo: No acute issues. GI: No acute issues. ID: Completed antibiotic course for aspiration pneumonia, but restarted on Abx 12/26 due to concern for new aspiration pneumonia Heme/Onc: No acute issues. Nutrition: has not been eating, and [employer] not able to assess, nutrition consult for TPN Psych: Underlying schizoaffective disorder, restarted on outpatient regimen. Miscellaneous: No acute issues. Prophylaxis: Lovenox Quality Stroke Does the patient have a stroke diagnosis?: No VTE Prior VTE?: No VTE Risk Level:: Medical - moderate - high VTE Device Contraindication: N/A - Device Ordered VTE Drug Contraindication: N/A - Med Ordered
--- NOTE | 2024-12-26 16:35 | P.PNPL_ITS ---
Subjective Subjective Date of Service: 12/26/24 Principal diagnosis: Pericardial tamponade Interval history: Remains significantly hypoxic with high FiO2 requirements. CT angio chest reviewed, unclear etiology, but may have ARDS/ILD component. Objective Data Labs 12/26/24 05:53 12/26/24 05:53 Labs: Laboratory Results - last 24 hr 12/25/24 12/26/24 12/26/24 18:27 00:15 01:39 WBC RBC Hgb Hct MCV MCH MCHC RDW Plt Count MPV Immature Gran % (Auto) Neut % (Auto) Lymph % (Auto) [place] % (Auto) Eos % (Auto) Baso % (Auto) Lymph # (Auto) [place] # (Auto) Eos # (Auto) Baso # (Auto) Abs Immat Gran (auto) Absolute Neuts (auto) Absolute Nucleated RBC Nucleated RBC % (auto) O2 Saturation 92.0 ABG pH at Pt Temp 7.59 H ABG pCO2 at Pt Temp 28 L ABG pO2 at Pt Temp 72 L ABG HCO3 26 ABG Base Excess (Actual) 6.0 VBG pH VBG pCO2 VBG pO2 VBG HCO3 VBG O2 Saturation VBG Base Excess Sodium Potassium Chloride Carbon Dioxide Anion Gap BUN Creatinine Estim Creat Clear Calc Estimated GFR POC Glucose 183 H 170 H Random Glucose Lactic Acid Lactic Acid F/U @ 2Hr Lactic Acid F/U @ 4Hr Calcium Phosphorus Magnesium Total Bilirubin AST ALT Alkaline Phosphatase Troponin I High Sens Total Protein Albumin 12/26/24 12/26/24 12/26/24 03:34 04:45 05:53 WBC 13.1 H RBC 5.12 Hgb 11.5 L Hct 35.1 L MCV 68.6 L MCH 22.5 L MCHC 32.8 RDW 15.7 Plt Count 654 H MPV 11.1 Immature Gran % (Auto) 0.8 H Neut % (Auto) 80.1 H Lymph % (Auto) 7.9 L [place] % (Auto) 10.9 Eos % (Auto) 0.1 Baso % (Auto) 0.2 Lymph # (Auto) 1.0 L [place] # (Auto) 1.4 H Eos # (Auto) 0.0 Baso # (Auto) 0.0 Abs Immat Gran (auto) 0.11 H Absolute Neuts (auto) 10.5 H Absolute Nucleated RBC 0.030 H Nucleated RBC % (auto) 0.2 O2 Saturation ABG pH at Pt Temp ABG pCO2 at Pt Temp ABG pO2 at Pt Temp ABG HCO3 ABG Base Excess (Actual) VBG pH VBG pCO2 VBG pO2 VBG HCO3 VBG O2 Saturation VBG Base Excess Sodium 149 H 153 H Potassium 5.7 H D 2.9 L* D Chloride 108 107 Carbon Dioxide 22 27 Anion Gap 25 H 22 H BUN 53 H 57 H Creatinine 1.40 1.52 H Estim Creat Clear Calc 39.1 32.1 Estimated GFR 38 35 POC Glucose 156 H Random Glucose 185 H 339 H Lactic Acid 2.5 H* Lactic Acid F/U @ 2Hr 3.6 H* Lactic Acid F/U @ 4Hr Calcium 10.9 H 11.1 H Phosphorus 3.6 Magnesium 2.6 2.6 Total Bilirubin 0.6 AST 31 ALT 29 Alkaline Phosphatase 277 H Troponin I High Sens 31.3 H D Total Protein 7.8 Albumin 4.1 4.0 12/26/24 12/26/24 12/26/24 05:57 09:27 09:38 WBC RBC Hgb Hct MCV MCH MCHC RDW Plt Count MPV Immature Gran % (Auto) Neut % (Auto) Lymph % (Auto) [place] % (Auto) Eos % (Auto) Baso % (Auto) Lymph # (Auto) [place] # (Auto) Eos # (Auto) Baso # (Auto) Abs Immat Gran (auto) Absolute Neuts (auto) Absolute Nucleated RBC Nucleated RBC % (auto) O2 Saturation ABG pH at Pt Temp ABG pCO2 at Pt Temp ABG pO2 at Pt Temp ABG HCO3 ABG Base Excess (Actual) VBG pH 7.61 H* 7.56 H VBG pCO2 29 36 VBG pO2 54 71 VBG HCO3 29 H 33 H VBG O2 Saturation 77.0 90.0 VBG Base Excess 8.9 10.4 Sodium Potassium Chloride Carbon Dioxide Anion Gap BUN Creatinine Estim Creat Clear Calc Estimated GFR POC Glucose 310 H Random Glucose Lactic Acid Lactic Acid F/U @ 2Hr Lactic Acid F/U @ 4Hr 2.6 H* Calcium Phosphorus Magnesium Total Bilirubin AST ALT Alkaline Phosphatase Troponin I High Sens Total Protein Albumin 12/26/24 12:41 WBC RBC Hgb Hct MCV MCH MCHC RDW Plt Count MPV Immature Gran % (Auto) Neut % (Auto) Lymph % (Auto) [place] % (Auto) Eos % (Auto) Baso % (Auto) Lymph # (Auto) [place] # (Auto) Eos # (Auto) Baso # (Auto) Abs Immat Gran (auto) Absolute Neuts (auto) Absolute Nucleated RBC Nucleated RBC % (auto) O2 Saturation ABG pH at Pt Temp ABG pCO2 at Pt Temp ABG pO2 at Pt Temp ABG HCO3 ABG Base Excess (Actual) VBG pH VBG pCO2 VBG pO2 VBG HCO3 VBG O2 Saturation VBG Base Excess Sodium Potassium Chloride Carbon Dioxide Anion Gap BUN Creatinine Estim Creat Clear Calc Estimated GFR POC Glucose 196 H Random Glucose Lactic Acid Lactic Acid F/U @ 2Hr Lactic Acid F/U @ 4Hr Calcium Phosphorus Magnesium Total Bilirubin AST ALT Alkaline Phosphatase Troponin I High Sens Total Protein Albumin Microbiology Microbiology Results: Microbiology 12/22/24 20:59 Blood - Venous Blood Culture - Preliminary No growth after 48 hours. 12/19/24 18:25 Pericardial Fluid Gram Stain - Final 12/19/24 18:25 Pericardial Fluid Anaerobic Culture - Final NO GROWTH AFTER 5 DAYS 12/19/24 18:25 Pericardial Fluid Body Fluid Culture - Final No growth after 2 days 12/22/24 02:49 Blood - Venous Blood Culture - Preliminary No growth after 48 hours. 12/22/24 02:49 Blood - Venous Blood Culture - Preliminary No growth after 48 hours. 12/17/24 08:52 Blood - Venous Blood Culture - Final No growth after 5 days. 12/17/24 08:42 Blood - Venous Blood Culture - Final No growth after 5 days. Review of Systems Cardiovascular: Reports dyspnea Respiratory: Reports dyspnea Physical Exam 2 Vital Signs: Vital Signs: Last Vital Signs Temp 97.5 F 12/26/24 15:18 Pulse 103 H 12/26/24 15:18 Resp 22 H 12/26/24 15:38 BP 115/70 12/26/24 15:18 Pulse Ox 93 12/26/24 15:18 O2 Del Method High Flow Nasal C annula 12/26/24 15:18 O2 Flow Rate 30 12/26/24 15:18 FiO2 100 12/26/24 15:18 BMI result Body Mass Index 23.5 Const: General: no acute distress, alert and awake Eyes: Sclerae: sclerae normal EOM: EOMs intact bilaterally Neck: Neck: Yes no lymphadenopathy, Yes trachea midline and Yes supple Resp: Effort & Inspection: tachypneic Auscultation: crackles (Bilateral) Cardio: Rate: regular rate Rhythm: regular rhythm Heart sounds: no gallops, no murmurs and no rubs GI: Palpation (GI): Soft to palpation and Other GI palpation findings present ( Nontender) Auscultation: normal bowel sounds Extrem: General: Yes no pedal edema, No clubbing and No cyanosis Procedures Date of Service Date of Service: 12/26/24 Assessment and Plan Assessment and plan (1) Acute respiratory failure with hypoxia: Status: Acute (2) ARDS (adult respiratory distress syndrome): Status: Acute Plan Impression: 59-year-old lady with underlying schizophrenia hospitalized now with profound hypoxemia requiring high-flow nasal cannula/Oxymizer support with CT angio showing no pulmonary emboli, but ARDS but. Unclear etiology, no significant component of cardiogenic pulmonary edema at this time, may have ILD component. Recommendation: Suggest empiric trial of high-dose systemic glucocorticoids over the next 72 hours, ordered. Time Spent With Patient Time: Total time managing care of this patient today ____ minutes. Progress Note: Quality Stroke Does the patient have a stroke diagnosis?: No
[2024-12-26 17:57] LABS: Anion Gap 20 (12-20); Blood Urea Nitrogen 62 mg/dL (9-16); Calcium 10.6 mg/dL (8.4-10.2); Carbon Dioxide 24 mmol/L (22-29); Chloride 114 mmol/L (96-108); Creatinine Clr Calc Pharmacy 35.1; Estimated Glomerular Filt Rate 39; Potassium 3.8 mmol/L (3.3-5.1); Sodium 154 mmol/L (135-145)
[2024-12-26 18:09] LABS: Glucose, Whole Blood 219 mg/dL (60-115)
[2024-12-26] MEDS: Furosemide 20 MG/2 ML VIAL 40 MG IVPUSH (18:12)
[2024-12-26 18:52] LABS: Glucose, Whole Blood 246 mg/dL (60-115)
[2024-12-27] VITALS (16 sets, daily range): BP systolic 123–151; BP diastolic 71–94; PULSE 93–128; RESP 12–26; TEMP 35.9–37.1; O2SAT 92–97; BMI 25.4
[2024-12-27] MEDS: 0.9 % Sodium Chloride Flush 3 ML SYRINGE IVFLUSH (01:05)
[2024-12-27] MEDS: cefEPime HCl/D5W 2 GM/50 ML PIGGYBACK IV ×2 (01:05→14:04)
[2024-12-27] MEDS: metroNIDAZOLE/NS 500 MG/100 ML PIGGYBACK 100 MG IV ×3 (01:05→18:03)
[2024-12-27 01:25] LABS: Glucose, Whole Blood 340 mg/dL (60-115)
[2024-12-27 05:13] LABS: Glucose, Whole Blood 296 mg/dL (60-115)
[2024-12-27] MEDS: KCl 20 mEq in 5% Dex/0.45% Sod 20 MEQ/1,000 ML IV.SOLN 80 MEQ IVCONT (07:59)
[2024-12-27 08:03] LABS: Alanine Aminotransferase 22 U/L (0-31); Albumin Level 3.8 g/dL (3.5-5.0); Alkaline Phosphatase 222 U/L (39-117); Anion Gap 21 (12-20); Aspartate Amino Transferase 20 U/L (5-31); Blood Urea Nitrogen 60 mg/dL (9-16); Calcium 10.3 mg/dL (8.4-10.2); Carbon Dioxide 21 mmol/L (22-29); Chloride 118 mmol/L (96-108); Creatinine Clr Calc Pharmacy 47.8; Estimated Glomerular Filt Rate 49; Magnesium 2.5 mg/dL (1.6-2.6); Potassium 4.1 mmol/L (3.3-5.1); Sodium 156 mmol/L (135-145); Total Protein 6.8 g/dL (6.5-8.0)
[2024-12-27] MEDS: Furosemide 20 MG/2 ML VIAL 40 MG IVPUSH ×2 (08:08→18:03)
--- NOTE | 2024-12-27 09:12 | MHC.CLN ---
F/U PT TRANSFERRED TO MEDICAL FLOOR REMAINS NPO CAR RENTAL CLERK UNABLE TO EVAL R/T PT DISORIENTED AND UNABLE TO FOLLOW COMMANDS CONSULT FOR PPN REVIEWED LABS; NOTED ELEVATED SERUM NA DISCUSSED WITH PHARMACY 12/27/24: RECOMMEND PPN AT 50ML/HR TO PROVIDE 612KCALS, 120G DEXTROSE, 51G PROTEIN REPLETE LYTES NEEDED; CHECK TRIGS 12/28/24: RECOMMEND ADVANCING PPN TO MAX GOAL RATE 70ML/HR WITH 68G LIPIDS TO PROVIDE 1537 TOTAL KCALS (27KCALS/KG), 168G DEXTROSE, 71G PROTEIN (1.25G/KG) REPLETE LYTES NEEDED 12/29/24 CONTINUE PPN AT MAX GOAL RATE RD CAN BE REACHED VIA TIGER CONNECT IF NEEDED DURING OFF HOURS FOLLOWING FOR DIET ADVANCEMENT; GOAL TO REDUCE PPN PO INTAKE ADVANCES
--- NOTE | 2024-12-27 11:53 | PM.PNCARD ---
Subjective Subjective Date of Service: 12/27/24 Principal diagnosis: Pericardial tamponade Interval history: Seen examined at bedside. Disoriented. On high-flow oxygen. CT scan is showing bilateral ground-glass opacities consistent with ARDS. Physical Exam Vital Signs: Last Vital Signs Temp 98.8 F 12/27/24 07:40 Pulse 128 H 12/27/24 11:41 Resp 22 H 12/27/24 11:41 BP 129/85 12/27/24 11:41 Pulse Ox 92 12/27/24 11:41 O2 Del Method High Flow Nasal Cannula 12/27/24 11:41 O2 Flow Rate 40 12/27/24 11:41 FiO2 80 12/27/24 11:41 BMI result Body Mass Index 25.4 GENERAL APPEARANCE: Disoriented. SOB, on high flow NC NECK: no carotid bruit, mild jugular venous distention. SKIN: no suspicious lesions, warm and dry. HEART: no murmurs, Tachycardic. Abdomen: Soft, mild tenderness epigastric region. LUNGS: clear to auscultation anteriorly. EXTREMITIES: no edema. PERIPHERAL PULSES: equal. NEUROLOGIC: Disoriented. Objective Labs and Meds 12/26/24 05:53 12/27/24 07:40 Lab results: Laboratory Results - last 24 hr 12/26/24 12/26/24 12/26/24 12:41 17:10 18:02 Sodium 154 H Potassium 3.8 D Chloride 114 H Carbon Dioxide 24 Anion Gap 20 BUN 62 H Creatinine 1.39 Estim Creat Clear Calc 35.1 Estimated GFR 39 POC Glucose 196 H 219 H Random Glucose 238 H Calcium 10.6 H Phosphorus Magnesium Total Bilirubin AST ALT Alkaline Phosphatase Total Protein Albumin 12/26/24 12/27/24 12/27/24 18:48 01:10 05:09 Sodium Potassium Chloride Carbon Dioxide Anion Gap BUN Creatinine Estim Creat Clear Calc Estimated GFR POC Glucose 246 H 340 H 296 H Random Glucose Calcium Phosphorus Magnesium Total Bilirubin AST ALT Alkaline Phosphatase Total Protein Albumin 12/27/24 12/27/24 07:40 07:40 Sodium 156 H Potassium 4.1 Chloride 118 H Carbon Dioxide 21 L Anion Gap 21 H BUN 60 H Creatinine 1.12 Estim Creat Clear Calc 47.8 Estimated GFR 49 POC Glucose Random Glucose 346 H Calcium 10.3 H Phosphorus 3.1 Magnesium 2.5 Total Bilirubin 0.5 AST 20 ALT 22 Alkaline Phosphatase 222 H Total Protein 6.8 Albumin 3.8 Cancelled Progress Note: A&P Assessment and plan (1) Pericardial effusion: Status: Acute (2) Acute respiratory failure with hypoxia: Status: Acute Plan [age] year female with aspiration and pericardial effusion status post pericardiocentesis. She has significant hypoxia and is on high-flow nasal cannula. CT scan is showing bilateral ground-glass opacities. These are quite extensive and are likely due to ARDS. She has minimal JVD currently and has been on IV diuretics and I doubt that this is all heart failure. Prognosis is guarded. She progressively is getting worse unfortunately. Goals of care discussion should be done with family. Thank you for allowing me to participate in the care of your patient. Please feel free to contact me if you have any questions. Time Spent With Patient Time: Total time managing care of this patient today ____ minutes. Progress Note: Quality Stroke Does the patient have a stroke diagnosis?: No Procedures Date of Service Date of Service: 12/27/24
[2024-12-27 11:54] LABS: Glucose, Whole Blood 326 mg/dL (60-115)
--- NOTE | 2024-12-27 12:27 | MHC.SLORD ---
Speech Language Pathology Order Status: CAR DUMPER consulted w/ RT- Per RT, patient is not appropriate for bedside swallow eval at this time d/t respiratory status and disorientation. MD notified.
--- NOTE | 2024-12-27 15:23 | MHC.CM.PN ---
Per rounds, CM s/v working with guardian and legal to change code status to DNR/ DNI. Pt not ready to DC, will return to [facility] at DC, update sent.
[2024-12-27 17:58] LABS: Glucose, Whole Blood 301 mg/dL (60-115)
--- NOTE | 2024-12-27 18:10 | P.PNIM_ITS ---
Subjective Subjective Date of Service: 12/27/24 Interval History: Patient seen and examined at bedside this morning, lying uncomfortably in bed. With high-flow nasal cannula in place, with FiO2 of 80% and oxygen flow rate at 40 L/min. Patient during the day became more hypoxic, requiring increase in FiO2 to 100% on oxygen flow rate to 45 is per minute. On labs patient with hypernatremia and hyperchloremia. Leukocytosis 13.1, hemoglobin 11.5, platelets 654, with lactic acidosis. Chest CTA with diffuse ground-glass and reticular opacities with small pleural effusions, progressing, could be pulmonary edema/ARDS, infection or acute exacerbation of chronic lung disease. Patient received only placed on empiric trial of high-dose systemic glucocorticoids. Vital signs, tachycardia, tachypnea. Physical Exam 2 Exam: Exam: General: Alert to self, acute distress, ill appearing Head: AT/NC ENT: dry mucous membranes Neck: supple CVS; increased RR, S1 S2 normal Lungs: coarse bilateral breath sounds, with increased Respiratory rate Abd: Soft non tender, non distended Ext: No edema and no calf tenderness MSK: moving all 4 limbs Skin: No edema Psych: UTO Neurology: moving extremities spontaneously Vital Signs: Vital Signs: Last Vital Signs Temp 98.8 F 12/27/24 07:40 Pulse 94 12/27/24 15:14 Resp 23 H 12/27/24 15:14 BP 123/71 12/27/24 15:14 Pulse Ox 96 12/27/24 15:14 O2 Del Method High Flow Nasal C annula 12/27/24 15:14 O2 Flow Rate 45 12/27/24 15:14 FiO2 100 12/27/24 15:14 BMI result Body Mass Index 25.4 Objective Data Active Medications Acetaminophen (Acetaminophen 325 Mg Tablet) 650 mg PO Q4H PRN PRN Reason: Fever >101 Last Admin: 12/23/24 18:23 Dose: 650 mg Documented By: CAL Chlorhexidine Gluconate (Chlorhexidine Gluc Oral Rinse 15 Ml Mouthwash) 15 ml BUCCAL TID [facility] Last Admin: 12/27/24 16:52 Dose: Not Given Documented By: EDWARD Non-Admin Reason: NPO Colchicine (Colchicine 0.6 Mg Tablet) 0.6 mg PO DAILY [facility] Last Admin: 12/27/24 11:05 Dose: Not Given Documented By: EDWARD Non-Admin Reason: NPO Dextrose (Dextrose 50 % 25 Gm/50 Ml Syringe) 25 gm IVPUSH Q15M PRN; Protocol PRN Reason: per Hypoglycemia Standing Ord. Enoxaparin Sodium (Enoxaparin Sodium 40 Mg/0.4 Ml Syringe) 40 mg SUBCUT Q24H [facility] Last Admin: 12/27/24 12:47 Dose: 40 mg Documented By: EDWARD Furosemide (Furosemide 20 Mg/2 Ml Vial) 40 mg IVPUSH DAILY [facility]; Protocol Glucose (Glucose Gel 15 Gm Gel..Gram.) 15 gm PO Q15M PRN; Protocol PRN Reason: per Hypoglycemia Standing Ord. Hydromorphone HCl (Hydromorphone Hcl 0.5 Mg/0.5 Ml Syringe) 0.5 mg IVPUSH Q3H PRN; Protocol PRN Reason: Work of breathing Last Admin: 12/27/24 12:20 Dose: 0.5 mg Documented By: SHEREE Cefepime HCl (Maxipime) 2 gm in 50 mls @ 100 mls/hr IV Q12H [facility] Last Infusion: 12/27/24 16:53 Dose: Infused Documented By: EDWARD Metronidazole (Flagyl) 500 mg in 100 mls @ 100 mls/hr IV Q8H [facility] Last Infusion: 12/27/24 13:09 Dose: Infused Documented By: EDWARD Potassium Chloride/Dextrose/Sod Cl (Kcl 20 Meq In 5% Dex/0.45% Sod) 20 meq in 1,000 mls @ 80 mls/hr IVCONT .[id number] [facility] Last Admin: 12/27/24 07:59 Dose: 80 mls/hr Documented By: EDWARD Nutrition (Parenteral) (Parenteral Nutrition) 1,200 mls @ 50 mls/hr IV .Q24H [facility]; Protocol Stop: 12/28/24 20:59 Dextrose (D5w) 1,000 mls @ 75 mls/hr IVCONT .[id number] [facility] Ibuprofen (Ibuprofen 800 Mg Tablet) 800 mg PO Q8H [facility] Last Admin: 12/27/24 13:22 Dose: Not Given Documented By: EDWARD Non-Admin Reason: NPO Insulin Human Lispro (Insulin Lispro 100 Unit/Ml 3 Ml Vial) 0 unit SUBCUT Q6H [facility]; Protocol Last Admin: 12/27/24 12:46 Dose: 8 unit Documented By: EDWARD Levothyroxine Sodium (Levothyroxine Sodium 100 Mcg/5 Ml Vial) 25 mcg IVPUSH DAILY@0600 [facility] Last Admin: 12/27/24 04:48 Dose: 25 mcg Documented By: NAVID Methylprednisolone Sodium Succinate (Methylprednisolone Sod Succ 125 Mg/2 Ml Vial) 250 mg IVPUSH Q6H [facility] Stop: 12/29/24 10:46 Last Admin: 12/27/24 17:19 Dose: 250 mg Documented By: EDWARD Metoprolol Tartrate (Metoprolol Tartrate 5 Mg/5 Ml Vial) 2.5 mg IVPUSH Q4H [facility]; Protocol Last Admin: 12/27/24 17:19 Dose: 2.5 mg Documented By: EDWARD Pharmacy Consult (Consult Rx Parenteral Nutrition Ordering) 1 each MISCELLANE DAILY PRN PRN Reason: Consult order Quetiapine Fumarate (Quetiapine Fumarate 400 Mg Tablet) 400 mg PO BEDTIME [facility] Last Admin: 12/26/24 20:32 Dose: Not Given Documented By: NAVID Non-Admin Reason: npo Risperidone (Risperidone 2 Mg Tablet) 2 mg PO BEDTIME [facility] Last Admin: 12/26/24 20:32 Dose: Not Given Documented By: NAVID Non-Admin Reason: npo Risperidone (Risperidone 1 Mg Tablet) 1 mg PO DAILY [facility] Last Admin: 12/27/24 11:05 Dose: Not Given Documented By: EDWARD Non-Admin Reason: NPO Sodium Chloride (0.9 % Sodium Chloride Flush 3 Ml Syringe) 3 ml IVFLUSH QSHIFT [facility] Last Admin: 12/27/24 17:31 Dose: Not Given Documented By: EDWARD Non-Admin Reason: IV Running Labs 12/26/24 05:53 12/27/24 07:40 Labs: Laboratory Results - last 24 hr 12/26/24 12/27/24 12/27/24 18:48 01:10 05:09 Anion Gap Estim Creat Clear Calc Estimated GFR POC Glucose 246 H 340 H 296 H Random Glucose Calcium Phosphorus Magnesium Total Bilirubin AST ALT Alkaline Phosphatase Total Protein Albumin 12/27/24 12/27/24 12/27/24 07:40 07:40 11:50 Anion Gap 21 H Estim Creat Clear Calc 47.8 Estimated GFR 49 POC Glucose 326 H Random Glucose 346 H Calcium 10.3 H Phosphorus 3.1 Magnesium 2.5 Total Bilirubin 0.5 AST 20 ALT 22 Alkaline Phosphatase 222 H Total Protein 6.8 Albumin 3.8 Cancelled 12/27/24 17:54 Anion Gap Estim Creat Clear Calc Estimated GFR POC Glucose 301 H Random Glucose Calcium Phosphorus Magnesium Total Bilirubin AST ALT Alkaline Phosphatase Total Protein Albumin Microbiology Microbiology Results: Microbiology 12/22/24 02:49 Blood Culture - Final Blood - Venous No growth after 5 days. 12/22/24 02:49 Blood Culture - Final Blood - Venous No growth after 5 days. Assessment and Plan (1) Severe sepsis: Status: Acute (2) Acute respiratory failure with hypoxia: Status: Acute (3) Encephalopathy acute: Status: Acute (4) Acidosis, lactic: Status: Acute (5) Schizoaffective disorder: Status: Acute (6) Hypothyroidism: Status: Acute (7) Hypernatremia: Status: Acute (8) Metabolic acidosis: Status: Acute Plan Assessment: 59-year-old lady with underlying COPD, hypothyroidism, schizoaffective disorder admitted on 12/17/2024 with encephalopathy and acute hypoxic respiratory failure, started empirically on broad-spectrum IV antibiotics as well as IV fluid resuscitation for sepsis and worsening hypoxemia. TTE showed large pericardial effusion, requiring pericardial drain placement w/ removal on 12/19. Patient required intubation on 12/22 and later extubated on 12/24. Downgraded on 12/25. Impression Toxic metabolic encephalopathy, likely multifactorial in the setting of sepsis, electrolyte abnormalities, acute hypoxic respiratory failure. Severe Sepsis Acute hypoxic respiratory failure, suspect multifactorial setting of ILD/ARDS and sepsis COPD -we will continue with cefepime and Flagyl -continue with stress dose steroids -continue with supplemental oxygen and titrate for SpO2 greater than 90% -we will decrease Lasix to once a day given patient's hypernatremia Hypernatremia Hyperchloremia Metabolic acidosis -we will initiate D5W at 75 mL/hour Will monitor labs Nephrology consulted Pericardial effusion status post pericardial drain with removal -we will continue with empiric colchicine for inflammatory pericarditis Immunostain workup pending Cardiology following Schizoaffective disorder -continue with risperidone and quetiapine Hypothyroidism -continue with levothyroxine 25 mcg q.d. DVT PPx: Lovenox Disposition: Patient?s current condition has worsened. with multiple physiological systems, now requiring increased life?sustaining support (including but not limited to oxygen supplementation, IVF, IV antibiotics). After careful assessment, continuation of full-code status is unlikely to yield benefit and may instead contribute to harm, suffering and decreased quality of life for the patient. Spoke with Pulmonology/Proposal Director for second physician evaluation based on patients current medical status. Spoke with legal guardian Ayla Og at [phone] to update on patient's condition and discuss GOC. Per guardian, they are unable to make a legal change in regards to Code status without court intervention. Quality Stroke Does the patient have a stroke diagnosis?: No VTE Prior VTE?: No VTE Risk Level:: Medical - moderate - high VTE Device Contraindication: N/A - Device Ordered VTE Drug Contraindication: N/A - Med Ordered
[2024-12-27] MEDS: Chlorhexidine Gluc Oral Rinse 15 ML MOUTHWASH BUCCAL (21:06)
[2024-12-27] MEDS: Parenteral Nutrition 1,200 ML 50 ML IV (21:07)
[2024-12-27 23:01] LABS: Glucose, Whole Blood 366 mg/dL (60-115)
[2024-12-27 23:03] LABS: Anion Gap 22 (12-20); Blood Urea Nitrogen 57 mg/dL (9-16); Calcium 10.2 mg/dL (8.4-10.2); Carbon Dioxide 18 mmol/L (22-29); Chloride 118 mmol/L (96-108); Creatinine Clr Calc Pharmacy 45.7; Estimated Glomerular Filt Rate 47; Potassium 4.0 mmol/L (3.3-5.1); Sodium 154 mmol/L (135-145)
[2024-12-27] MEDS: Insulin Glargine,Hum.rec.anlog 100 UNIT/ML 10 ML VIAL 15 UNIT SUBCUT (23:33)
[2024-12-28] VITALS (16 sets, daily range): BP systolic 116–134; BP diastolic 71–94; PULSE 90–123; RESP 17–22; TEMP 36.2–37.2; O2SAT 90–97; BMI 25.0
[2024-12-28 00:56] LABS: Glucose, Whole Blood 399 mg/dL (60-115)
[2024-12-28] MEDS: cefEPime HCl/D5W 2 GM/50 ML PIGGYBACK IV ×2 (01:17→13:39)
[2024-12-28] MEDS: 0.9 % Sodium Chloride Flush 3 ML SYRINGE IVFLUSH ×3 (01:17→16:42)
[2024-12-28] MEDS: metroNIDAZOLE/NS 500 MG/100 ML PIGGYBACK 100 MG IV ×3 (02:18→17:36)
[2024-12-28 05:50] LABS: Glucose, Whole Blood 383 mg/dL (60-115)
[2024-12-28 06:56] LABS: Hematocrit 39.1 % (37.0-47.0); Hemoglobin 12.4 g/dl (12.0-16.0); Mean Corpuscular HGB Conc 31.7 g/dl (31.0-35.0); Mean Corpuscular Hemoglobin 22.3 pg (27.0-33.0); Mean Corpuscular Volume 70.3 fL (80.0-98.0); NRBC Abs Auto 0.270 X10*3/uL (0.0-0.012); Platelet Count 670 X10*3/uL (160-400); Red Blood Count 5.56 X10*6/uL (4.20-5.50); White Blood Count 21.7 X10*3/uL (4.8-10.8)
[2024-12-28 07:07] LABS: NRBC Pct Auto 1.2 /100WBC (0.0-0.2)
[2024-12-28 07:21] LABS: Alanine Aminotransferase 22 U/L (0-31); Albumin Level 4.1 g/dL (3.5-5.0); Alkaline Phosphatase 214 U/L (39-117); Anion Gap 22 (12-20); Aspartate Amino Transferase 15 U/L (5-31); Blood Urea Nitrogen 62 mg/dL (9-16); Calcium 10.7 mg/dL (8.4-10.2); Carbon Dioxide 23 mmol/L (22-29); Chloride 117 mmol/L (96-108); Creatinine Clr Calc Pharmacy 42.8; Estimated Glomerular Filt Rate 44; Magnesium 2.8 mg/dL (1.6-2.6); Potassium 3.4 mmol/L (3.3-5.1); Sodium 159 mmol/L (135-145); Total Protein 7.2 g/dL (6.5-8.0); Triglycerides 290 mg/dL (<150)
[2024-12-28] MEDS: Chlorhexidine Gluc Oral Rinse 15 ML MOUTHWASH BUCCAL ×3 (08:42→21:06)
--- NOTE | 2024-12-28 09:56 | PC.NURSE ---
Discuss plan of care with DR Morse . BRITTANY Nixon MD restarting D5W at 125 ml /hr , stated that will continue Insulin sliding scale at this time , no additional Insulin at this time
[2024-12-28 11:50] LABS: Glucose, Whole Blood 466 mg/dL (60-115)
--- NOTE | 2024-12-28 16:12 | P.PNIM_ITS ---
Subjective Subjective Date of Service: 12/28/24 Interval History: Patient seen and examined at bedside this morning, patient with hyperglycemia, with increased oxygen demands and decreased urine output. Patient at this time continues to be nonverbal, ill-appearing. Review of Systems Review of Systems: Yes Unobtainable due to mental status Physical Exam 2 Exam: Exam: General: Alert to self, acute distress, ill appearing Head: AT/NC ENT: dry mucous membranes Neck: supple CVS; increased RR, S1 S2 normal Lungs: coarse bilateral breath sounds, with increased Respiratory rate Abd: Soft non tender, non distended Ext: No edema and no calf tenderness MSK: moving all 4 limbs Skin: No edema Psych: UTO Neurology: moving extremities spontaneously Vital Signs: Vital Signs: Last Vital Signs Temp 98.9 F 12/28/24 08:42 Pulse 110 H 12/28/24 12:00 Resp 21 H 12/28/24 15:18 BP 121/81 12/28/24 12:00 Pulse Ox 94 12/28/24 12:00 O2 Del Method High Flow Nasal C annula 12/28/24 12:00 O2 Flow Rate 45 12/28/24 12:00 FiO2 85 12/28/24 12:00 BMI result Body Mass Index 25.0 Objective Data Active Medications Acetaminophen (Acetaminophen 325 Mg Tablet) 650 mg PO Q4H PRN PRN Reason: Fever >101 Last Admin: 12/23/24 18:23 Dose: 650 mg Documented By: CAL Chlorhexidine Gluconate (Chlorhexidine Gluc Oral Rinse 15 Ml Mouthwash) 15 ml BUCCAL TID [facility] Last Admin: 12/28/24 14:26 Dose: 15 ml Documented By: MINE Colchicine (Colchicine 0.6 Mg Tablet) 0.6 mg PO DAILY [facility] Last Admin: 12/28/24 11:18 Dose: Not Given Documented By: MINE Non-Admin Reason: NPO Dextrose (Dextrose 50 % 25 Gm/50 Ml Syringe) 25 gm IVPUSH Q15M PRN; Protocol PRN Reason: per Hypoglycemia Standing Ord. Enoxaparin Sodium (Enoxaparin Sodium 40 Mg/0.4 Ml Syringe) 40 mg SUBCUT Q24H [facility] Last Admin: 12/28/24 12:46 Dose: 40 mg Documented By: MINE Glucose (Glucose Gel 15 Gm Gel..Gram.) 15 gm PO Q15M PRN; Protocol PRN Reason: per Hypoglycemia Standing Ord. Hydromorphone HCl (Hydromorphone Hcl 0.5 Mg/0.5 Ml Syringe) 0.5 mg IVPUSH Q3H PRN; Protocol PRN Reason: Work of breathing Last Admin: 12/27/24 12:20 Dose: 0.5 mg Documented By: SHEREE Cefepime HCl (Maxipime) 2 gm in 50 mls @ 100 mls/hr IV Q12H [facility] Last Infusion: 12/28/24 14:10 Dose: Infused Documented By: MINE Metronidazole (Flagyl) 500 mg in 100 mls @ 100 mls/hr IV Q8H [facility] Last Infusion: 12/28/24 12:39 Dose: Infused Documented By: MINE Nutrition (Parenteral) (Parenteral Nutrition) 1,200 mls @ 50 mls/hr IV .Q24H [facility]; Protocol Stop: 12/28/24 20:59 Last Admin: 12/27/24 21:07 Dose: 50 mls/hr Documented By: BRADFORD Dextrose (D5w) 1,000 mls @ 125 mls/hr IVCONT .Q8H [facility] On Hold: 12/27/24 21:54 Last Infusion: 12/27/24 21:53 Dose: 0 mls/hr Documented By: BRADFORD Nutrition (Parenteral) (Parenteral Nutrition) 1,680 mls @ 70 mls/hr IV .Q24H [facility]; Protocol Stop: 12/29/24 20:59 Dextrose (D5w) 1,000 mls @ 125 mls/hr IVCONT .Q8H [facility] Last Admin: 12/28/24 08:30 Dose: 125 mls/hr Documented By: MINE Ibuprofen (Ibuprofen 800 Mg Tablet) 800 mg PO Q8H [facility] Last Admin: 12/28/24 12:38 Dose: Not Given Documented By: MINE Non-Admin Reason: NPO Insulin Glargine (Insulin Glargine,Hum.Rec.Anlog 100 Unit/Ml 10 Ml Vial) 15 unit SUBCUT BEDTIME [facility] Last Admin: 12/27/24 23:33 Dose: 15 unit Documented By: BRADFORD Insulin Human Lispro (Insulin Lispro 100 Unit/Ml 3 Ml Vial) 0 unit SUBCUT Q6H [facility]; Protocol Last Admin: 12/28/24 12:38 Dose: 12 unit Documented By: MINE Levothyroxine Sodium (Levothyroxine Sodium 100 Mcg/5 Ml Vial) 25 mcg IVPUSH DAILY@0600 [facility] Last Admin: 12/28/24 07:45 Dose: 25 mcg Documented By: BRADFORD Methylprednisolone Sodium Succinate (Methylprednisolone Sod Succ 125 Mg/2 Ml Vial) 250 mg IVPUSH Q6H [facility] Stop: 12/29/24 10:46 Last Admin: 12/28/24 12:37 Dose: 250 mg Documented By: MINE Metoprolol Tartrate (Metoprolol Tartrate 5 Mg/5 Ml Vial) 2.5 mg IVPUSH Q4H [facility]; Protocol Last Admin: 12/28/24 12:38 Dose: 2.5 mg Documented By: MINE Pharmacy Consult (Consult Rx Parenteral Nutrition Ordering) 1 each MISCELLANE DAILY PRN PRN Reason: Consult order Quetiapine Fumarate (Quetiapine Fumarate 400 Mg Tablet) 400 mg PO BEDTIME [facility] Last Admin: 12/27/24 22:05 Dose: Not Given Documented By: BRADFORD Non-Admin Reason: NPO Risperidone (Risperidone 2 Mg Tablet) 2 mg PO BEDTIME [facility] Last Admin: 12/27/24 22:05 Dose: Not Given Documented By: BRADFORD Non-Admin Reason: NPO Risperidone (Risperidone 1 Mg Tablet) 1 mg PO DAILY [facility] Last Admin: 12/28/24 11:18 Dose: Not Given Documented By: MINE Non-Admin Reason: NPO Sodium Chloride (0.9 % Sodium Chloride Flush 3 Ml Syringe) 3 ml IVFLUSH QSHIFT [facility] Last Admin: 12/28/24 08:43 Dose: 3 ml Documented By: MINE Labs 12/28/24 05:42 12/28/24 05:42 Labs: Laboratory Results - last 24 hr 12/27/24 12/27/24 12/27/24 17:54 22:32 22:58 MCV MCH MCHC RDW Plt Count MPV Absolute Nucleated RBC Nucleated RBC % (auto) Anion Gap 22 H Estim Creat Clear Calc 45.7 Estimated GFR 47 POC Glucose 301 H 366 H* Random Glucose 414 H* Calcium 10.2 Phosphorus Magnesium Total Bilirubin AST ALT Alkaline Phosphatase Total Protein Albumin Triglycerides 12/28/24 12/28/24 12/28/24 00:50 05:42 05:46 MCV 70.3 L MCH 22.3 L MCHC 31.7 RDW 16.5 H Plt Count 670 H MPV 11.8 Absolute Nucleated RBC 0.270 H Nucleated RBC % (auto) 1.2 H Anion Gap 22 H Estim Creat Clear Calc 42.8 Estimated GFR 44 POC Glucose 399 H* 383 H* Random Glucose 396 H* Calcium 10.7 H Phosphorus 3.6 Magnesium 2.8 H Total Bilirubin 0.8 AST 15 ALT 22 Alkaline Phosphatase 214 H Total Protein 7.2 Albumin 4.1 Triglycerides 290 H 12/28/24 11:45 MCV MCH MCHC RDW Plt Count MPV Absolute Nucleated RBC Nucleated RBC % (auto) Anion Gap Estim Creat Clear Calc Estimated GFR POC Glucose 466 H* Random Glucose Calcium Phosphorus Magnesium Total Bilirubin AST ALT Alkaline Phosphatase Total Protein Albumin Triglycerides Microbiology Microbiology Results: Microbiology 12/22/24 20:59 Blood Culture - Final Blood - Venous No growth after 5 days. Assessment and Plan (1) Schizoaffective disorder: Status: Acute (2) Severe sepsis: Status: Acute (3) COPD (chronic obstructive pulmonary disease): Status: Acute (4) Acute respiratory failure with hypoxia: Status: Acute (5) ARDS (adult respiratory distress syndrome): Status: Acute (6) Hypernatremia: Status: Acute Plan Assessment: 59-year-old lady with underlying COPD, hypothyroidism, schizoaffective disorder admitted on 12/17/2024 with encephalopathy and acute hypoxic respiratory failure, started empirically on broad-spectrum IV antibiotics as well as IV fluid resuscitation for sepsis and worsening hypoxemia. TTE showed large pericardial effusion, requiring pericardial drain placement w/ removal on 12/19. Patient required intubation on 12/22 and later extubated on 12/24. Downgraded on 12/25. Impression Toxic metabolic encephalopathy, likely multifactorial in the setting of sepsis, electrolyte abnormalities, acute hypoxic respiratory failure. Severe Sepsis Acute hypoxic respiratory failure, suspect multifactorial setting of ILD/ARDS and sepsis COPD -we will continue with cefepime and Flagyl -continue with stress dose steroids -continue with supplemental oxygen and titrate for SpO2 greater than 90% -Lasix d/c Hypernatremia Hyperchloremia Metabolic acidosis continue D5W at 125 mL/hour Will monitor labs Nephrology consulted and following Pericardial effusion status post pericardial drain with removal -we will continue with empiric colchicine for inflammatory pericarditis Immunostain workup pending Cardiology following Schizoaffective disorder -continue with risperidone and quetiapine Hypothyroidism -continue with levothyroxine 25 mcg q.d. DVT PPx: Lovenox Quality Stroke Does the patient have a stroke diagnosis?: No VTE Prior VTE?: No VTE Risk Level:: Medical - moderate - high VTE Device Contraindication: N/A - Device Ordered VTE Drug Contraindication: N/A - Med Ordered
[2024-12-28 17:43] LABS: Glucose, Whole Blood 528 mg/dL (60-115)
[2024-12-28 19:07] LABS: NT Pro B Type Natriuretic Pept 688.5 pg/mL (<300)
[2024-12-28] MEDS: Parenteral Nutrition 1,680 ML 70 ML IV (21:04)
[2024-12-29] VITALS (15 sets, daily range): BP systolic 116–146; BP diastolic 68–95; PULSE 84–127; RESP 16–24; TEMP 36.1–37.2; O2SAT 86–97; BMI 26.6
[2024-12-29] MEDS: Insulin Glargine,Hum.rec.anlog 100 UNIT/ML 10 ML VIAL 15 UNIT SUBCUT (00:28)
[2024-12-29 00:31] LABS: Glucose, Whole Blood 530 mg/dL (60-115)
[2024-12-29] MEDS: cefEPime HCl/D5W 2 GM/50 ML PIGGYBACK IV ×2 (01:05→14:09)
[2024-12-29] MEDS: 0.9 % Sodium Chloride Flush 3 ML SYRINGE IVFLUSH ×4 (01:05→23:03)
[2024-12-29] MEDS: metroNIDAZOLE/NS 500 MG/100 ML PIGGYBACK 100 MG IV ×4 (02:41→18:26)
[2024-12-29 03:13] LABS: Glucose, Whole Blood 550 mg/dL (60-115)
[2024-12-29 04:36] LABS: Anion Gap 18 (12-20); Blood Urea Nitrogen 55 mg/dL (9-16); Calcium 9.5 mg/dL (8.4-10.2); Carbon Dioxide 20 mmol/L (22-29); Chloride 112 mmol/L (96-108); Creatinine Clr Calc Pharmacy 47.9; Estimated Glomerular Filt Rate 50; Magnesium 2.7 mg/dL (1.6-2.6); Potassium 4.5 mmol/L (3.3-5.1); Sodium 145 mmol/L (135-145)
[2024-12-29] MEDS: Insulin Glargine,Hum.rec.anlog 100 UNIT/ML 10 ML VIAL 35 UNIT SUBCUT ×2 (04:58→21:08)
[2024-12-29 05:27] LABS: Glucose, Whole Blood 510 mg/dL (60-115)
--- NOTE | 2024-12-29 05:29 | PM.EVENT ---
Event Note Date of Service: 12/29/24 Event Note: Contacted the in multiple occasions overnight to notify worsening glucose, highest 601. I do not gap closed, and mild acidosis, CO2 20. Insulin lispro SC regimen has been modified: Lantus increased to 35 mg subacute at bedtime, insulin lispro increased to 10 units subQ every 6 hours (pt NPO) + sliding scale. We held PPN and will hold next Solu-Medrol dose. Per nursing D5 infusion has been on hold. Bolus NS 500 ml infusing. If blood glucose continue to get worse, morning team to consider ICU transfer for insulin IV infusion and close monitoring of blood glucose. Time Spent With Patient Time: Total time managing care of this patient today ____ minutes.
[2024-12-29 07:46] LABS: Glucose, Whole Blood 300 mg/dL (60-115)
[2024-12-29 09:37] LABS: Glucose, Whole Blood 281 mg/dL (60-115)
[2024-12-29] MEDS: Chlorhexidine Gluc Oral Rinse 15 ML MOUTHWASH BUCCAL ×3 (10:38→20:39)
[2024-12-29 11:49] LABS: Glucose, Whole Blood 323 mg/dL (60-115)
[2024-12-29 11:57] LABS: Alanine Aminotransferase 18 U/L (0-31); Albumin Level 3.3 g/dL (3.5-5.0); Alkaline Phosphatase 160 U/L (39-117); Anion Gap 17 (12-20); Aspartate Amino Transferase 16 U/L (5-31); Blood Urea Nitrogen 52 mg/dL (9-16); Calcium 9.6 mg/dL (8.4-10.2); Carbon Dioxide 20 mmol/L (22-29); Chloride 116 mmol/L (96-108); Creatinine Clr Calc Pharmacy 53.6; Estimated Glomerular Filt Rate 55; Magnesium 2.4 mg/dL (1.6-2.6); Potassium 3.8 mmol/L (3.3-5.1); Sodium 149 mmol/L (135-145); Total Protein 5.9 g/dL (6.5-8.0)
--- NOTE | 2024-12-29 14:54 | HO.PM.IMPN ---
Subjective Subjective Date of Service: 12/29/24 Interval History: Patient seen examined at bedside this morning, poorly verbal, with increased oxygen requirements at this time. Patient having episodes of hyperglycemia. With adjustments overnight of her insulin. Review of Systems Review of Systems: Yes Unobtainable due to mental status Physical Exam Exam: Exam: General: Alert to self, acute distress, ill appearing Head: AT/NC ENT: dry mucous membranes Neck: supple CVS; increased RR, S1 S2 normal Lungs: coarse bilateral breath sounds, with increased Respiratory rate Abd: Soft non tender, non distended Ext: No edema and no calf tenderness MSK: moving all 4 limbs Skin: No edema Psych: UTO Neurology: moving extremities spontaneously Vital Signs: Vital Signs: Last Vital Signs Temp 97.2 F 12/29/24 11:42 Pulse 105 H 12/29/24 11:42 Resp 20 12/29/24 11:42 BP 126/79 12/29/24 11:42 Pulse Ox 93 12/29/24 11:42 O2 Del Method High Flow Nasal C annula 12/29/24 11:42 O2 Flow Rate 45 12/29/24 11:42 FiO2 85 12/29/24 11:42 BMI result Body Mass Index 26.6 Objective Data Active Medications Acetaminophen (Acetaminophen 325 Mg Tablet) 650 mg PO Q4H PRN PRN Reason: Fever >101 Last Admin: 12/23/24 18:23 Dose: 650 mg Documented By: CAL Chlorhexidine Gluconate (Chlorhexidine Gluc Oral Rinse 15 Ml Mouthwash) 15 ml BUCCAL TID [facility] Last Admin: 12/29/24 10:38 Dose: 15 ml Documented By: MINE Colchicine (Colchicine 0.6 Mg Tablet) 0.6 mg PO DAILY [facility] Last Admin: 12/29/24 08:30 Dose: Not Given Documented By: MINE Non-Admin Reason: NPO Dextrose (Dextrose 50 % 25 Gm/50 Ml Syringe) 25 gm IVPUSH Q15M PRN; Protocol PRN Reason: per Hypoglycemia Standing Ord. Enoxaparin Sodium (Enoxaparin Sodium 40 Mg/0.4 Ml Syringe) 40 mg SUBCUT Q24H [facility] Last Admin: 12/29/24 12:49 Dose: 40 mg Documented By: MINE Glucose (Glucose Gel 15 Gm Gel..Gram.) 15 gm PO Q15M PRN; Protocol PRN Reason: per Hypoglycemia Standing Ord. Hydromorphone HCl (Hydromorphone Hcl 0.5 Mg/0.5 Ml Syringe) 0.5 mg IVPUSH Q3H PRN; Protocol PRN Reason: Work of breathing Last Admin: 12/29/24 13:53 Dose: 0.5 mg Documented By: MINE Cefepime HCl (Maxipime) 2 gm in 50 mls @ 100 mls/hr IV Q12H [facility] Last Admin: 12/29/24 14:09 Dose: 100 mls/hr Documented By: MINE Metronidazole (Flagyl) 500 mg in 100 mls @ 100 mls/hr IV Q8H [facility] Last Infusion: 12/29/24 11:51 Dose: Infused Documented By: MINE Nutrition (Parenteral) (Parenteral Nutrition) 1,680 mls @ 70 mls/hr IV .Q24H [facility]; Protocol Stop: 12/29/24 20:59 Last Infusion: 12/29/24 08:45 Dose: 70 mls/hr Documented By: MINE Nutrition (Parenteral) (Parenteral Nutrition) 1,680 mls @ 70 mls/hr IV .Q24H [facility]; Protocol Stop: 12/30/24 20:59 Ibuprofen (Ibuprofen 800 Mg Tablet) 800 mg PO Q8H [facility] Last Admin: 12/29/24 10:41 Dose: Not Given Documented By: MINE Non-Admin Reason: NPO Insulin Glargine (Insulin Glargine,Hum.Rec.Anlog 100 Unit/Ml 10 Ml Vial) 35 unit SUBCUT BEDTIME [facility] Insulin Human Lispro (Insulin Lispro 100 Unit/Ml 3 Ml Vial) 0 unit SUBCUT Q6H [facility]; Protocol Last Admin: 12/29/24 10:40 Dose: 6 unit Documented By: MINE Insulin Human Lispro (Insulin Lispro 100 Unit/Ml 3 Ml Vial) 12 unit SUBCUT Q6H [facility] Stop: 12/31/24 10:14 Last Admin: 12/29/24 10:38 Dose: 12 unit Documented By: MINE Levothyroxine Sodium (Levothyroxine Sodium 100 Mcg/5 Ml Vial) 25 mcg IVPUSH DAILY@0600 [facility] Last Admin: 12/29/24 04:57 Dose: 25 mcg Documented By: BRADFORD Metoprolol Tartrate (Metoprolol Tartrate 5 Mg/5 Ml Vial) 2.5 mg IVPUSH Q4H [facility]; Protocol Last Admin: 12/29/24 12:48 Dose: 2.5 mg Documented By: MINE Pharmacy Consult (Consult Rx Parenteral Nutrition Ordering) 1 each MISCELLANE DAILY PRN PRN Reason: Consult order Quetiapine Fumarate (Quetiapine Fumarate 400 Mg Tablet) 400 mg PO BEDTIME [facility] Last Admin: 12/28/24 21:26 Dose: Not Given Documented By: BRADFORD Non-Admin Reason: NPO Risperidone (Risperidone 2 Mg Tablet) 2 mg PO BEDTIME [facility] Last Admin: 12/28/24 21:26 Dose: Not Given Documented By: BRADFORD Non-Admin Reason: NPO Risperidone (Risperidone 1 Mg Tablet) 1 mg PO DAILY [facility] Last Admin: 12/29/24 08:30 Dose: Not Given Documented By: MINE Non-Admin Reason: NPO Sodium Chloride (0.9 % Sodium Chloride Flush 3 Ml Syringe) 3 ml IVFLUSH QSHIFT [facility] Last Admin: 12/29/24 08:29 Dose: 3 ml Documented By: MINE Labs 12/28/24 05:42 12/29/24 11:25 Labs: Laboratory Results - last 24 hr 12/28/24 12/28/24 12/29/24 17:32 18:19 00:27 Anion Gap Estim Creat Clear Calc Estimated GFR POC Glucose 528 H* 530 H* Random Glucose Calcium Phosphorus Magnesium Total Bilirubin AST ALT Alkaline Phosphatase NT-Pro-B Natriuret Pep 688.5 H Total Protein Albumin 12/29/24 12/29/24 12/29/24 03:05 03:44 05:23 Anion Gap 18 Estim Creat Clear Calc 47.9 Estimated GFR 50 POC Glucose 550 H* 510 H* Random Glucose 601 H* Calcium 9.5 D Phosphorus 4.4 Magnesium 2.7 H Total Bilirubin AST ALT Alkaline Phosphatase NT-Pro-B Natriuret Pep Total Protein Albumin 12/29/24 12/29/24 12/29/24 07:42 09:32 11:25 Anion Gap 17 Estim Creat Clear Calc 53.6 Estimated GFR 55 POC Glucose 300 H 281 H Random Glucose 349 H Calcium 9.6 Phosphorus 3.9 Magnesium 2.4 Total Bilirubin 0.6 AST 16 ALT 18 Alkaline Phosphatase 160 H NT-Pro-B Natriuret Pep Total Protein 5.9 L Albumin 3.3 L 12/29/24 11:45 Anion Gap Estim Creat Clear Calc Estimated GFR POC Glucose 323 H Random Glucose Calcium Phosphorus Magnesium Total Bilirubin AST ALT Alkaline Phosphatase NT-Pro-B Natriuret Pep Total Protein Albumin Assessment and Plan (1) Schizoaffective disorder: Status: Acute (2) Severe sepsis: Status: Acute (3) COPD (chronic obstructive pulmonary disease): Status: Acute (4) Acute respiratory failure with hypoxia: Status: Acute (5) ARDS (adult respiratory distress syndrome): Status: Acute Plan Assessment: 59-year-old lady with underlying COPD, hypothyroidism, schizoaffective disorder admitted on 12/17/2024 with encephalopathy and acute hypoxic respiratory failure, started empirically on broad-spectrum IV antibiotics as well as IV fluid resuscitation for sepsis and worsening hypoxemia. TTE showed large pericardial effusion, requiring pericardial drain placement w/ removal on 12/19. Patient required intubation on 12/22 and later extubated on 12/24. Downgraded on 12/25. Impression Toxic metabolic encephalopathy, likely multifactorial in the setting of sepsis, electrolyte abnormalities, acute hypoxic respiratory failure. Severe Sepsis Acute hypoxic respiratory failure, suspect multifactorial setting of ILD/ARDS and sepsis COPD -we will continue with cefepime and Flagyl -s/p stress dose steroids -continue with supplemental oxygen and titrate for SpO2 greater than 90% -Lasix d/c Hypernatremia, Hyperchloremia Metabolic acidosis D5W on hold in the setting of sodium 145 Will monitor labs Nephrology consulted and following Pericardial effusion status post pericardial drain with removal -we will continue with empiric colchicine for inflammatory pericarditis Immunostain workup pending Cardiology following Schizoaffective disorder -continue with risperidone and quetiapine Hypothyroidism -continue with levothyroxine 25 mcg q.d. Hyperglycemia -insulins glargine and regular adjusted. continue w/ ISS. will adjust medications accordingly based on patiens ISS, yesterday requiring 53 units of ISS DVT PPx: Lovenox Disposition: patient with guarded prognosis Quality Stroke Does the patient have a stroke diagnosis?: No VTE Prior VTE?: No VTE Risk Level:: Medical - moderate - high VTE Device Contraindication: N/A - Device Ordered VTE Drug Contraindication: N/A - Med Ordered
[2024-12-29 15:44] LABS: Glucose, Whole Blood 308 mg/dL (60-115)
--- NOTE | 2024-12-29 16:05 | PM.EVENT ---
Event Note Date of Service: 12/29/24 Event Note: Rapid response called due to hypoxia. Patient o2 saturation dropped to the 70s. HR elevated. Patient awake and alert, non-verbal, restless. Maxed out on HFCL. NRB placed over high flow. Patient re-positioned, gradually o2 sats improved. NRB o2 weaned off and o2 sats are now stable on HFNC. patient more calm Time Spent With Patient Time: Total time managing care of this patient today ____ minutes.
--- NOTE | 2024-12-29 16:16 | PC.NURSE ---
Agitation ,increased work of breathing, RR 28, HR 170, oxygen saturation 74% on high flow 60 L/90 %. Nonrebrether applied , [employer]ATOR called 15:58, BP 146/70 , HR 145 , oxygen saturation 91 on both HF + NR. Pt repositioned , agitation improved , NR removed , back to HF oxygen saturation 96 % . medicated with scheduled Metoprolol IV , HR 89.
[2024-12-29] MEDS: Parenteral Nutrition 1,680 ML 70 ML IV (20:37)
[2024-12-29 21:15] LABS: Glucose, Whole Blood 270 mg/dL (60-115)
[2024-12-29 23:56] LABS: Glucose, Whole Blood 272 mg/dL (60-115)
[2024-12-30] VITALS (36 sets, daily range): BP systolic 76–159; BP diastolic 32–96; PULSE 54–134; RESP 15–36; TEMP 35–38.5; O2SAT 71–100
--- NOTE | 2024-12-30 | ECG_ITS ---
Test Reason : cardiac rub on exam Blood Pressure : */* mmHG Vent. Rate : 87 BPM Atrial Rate : 87 BPM P-R Int : 154 ms QRS Dur : 60 ms QT Int : 370 ms P-R-T Axes : -19 -21 19 degrees QTcB Int : 445 ms Normal sinus rhythm Cannot rule out Anterior infarct , age undetermined Abnormal ECG When compared with ECG of 26-Dec-2024 01:49, Premature atrial complexes are no longer Present Non-specific change in ST segment in Lateral leads Nonspecific T wave abnormality now evident in Anterior leads Referred By: Sarah Hamilton Electronically Signed By: DENNIS YEBOAH MD
[2024-12-30] MEDS: cefEPime HCl/D5W 2 GM/50 ML PIGGYBACK IV ×2 (01:25→15:06)
[2024-12-30] MEDS: diazePAM 10 MG/2 ML CARTRIDGE 2.5 MG IVPUSH (01:50)
[2024-12-30] MEDS: metroNIDAZOLE/NS 500 MG/100 ML PIGGYBACK 100 MG IV ×3 (02:04→18:14)
[2024-12-30 03:11] LABS: Glucose, Whole Blood 327 mg/dL (60-115)
[2024-12-30 06:46] LABS: Glucose, Whole Blood 191 mg/dL (60-115)
[2024-12-30 07:08] LABS: Alanine Aminotransferase 20 U/L (0-31); Albumin Level 3.2 g/dL (3.5-5.0); Alkaline Phosphatase 148 U/L (39-117); Anion Gap 17 (12-20); Aspartate Amino Transferase 21 U/L (5-31); Blood Urea Nitrogen 53 mg/dL (9-16); Calcium 9.4 mg/dL (8.4-10.2); Carbon Dioxide 19 mmol/L (22-29); Chloride 120 mmol/L (96-108); Creatinine Clr Calc Pharmacy 53.0; Estimated Glomerular Filt Rate 54; Magnesium 2.3 mg/dL (1.6-2.6); Potassium 4.1 mmol/L (3.3-5.1); Sodium 152 mmol/L (135-145); Total Protein 5.9 g/dL (6.5-8.0)
[2024-12-30] MEDS: 0.9 % Sodium Chloride Flush 3 ML SYRINGE IVFLUSH ×2 (07:58→18:39)
--- NOTE | 2024-12-30 10:31 | MHC.CLN ---
F/U REMAINS NPO-DAY 8 REVIEWED LABS DISCUSSED WITH PHARMACY CONTINUE PPN AT MAX GOAL RATE 70ML/HR WITH 68G LIPIDS PROVIDES 1537 TOTAL KCALS (27KCALS/KG), 168G DEXTROSE, 71G PROTEIN (1.25G/KG) REPLETE LYTES NEEDED
[2024-12-30 10:46] LABS: Glucose, Whole Blood 222 mg/dL (60-115)
--- NOTE | 2024-12-30 11:13 | MHC.CM.PN ---
This blurb writer submitted all appropriate paperwork to Clinical Secretary [employer] in order to petition courts for code status expansion on guardianship-awaiting hearing date @ this time.
[2024-12-30] MEDS: OLANZapine 10 MG VIAL 2.5 MG IM (11:28)
--- NOTE | 2024-12-30 11:59 | PC.NURSE ---
Increased work of breathing RR 34, , pt restless , trashing her body from side to side in the bed , ripped off her high flow , grabbing nurses hands , not letting place the oxygen back on . Oxygen saturation 71 % CORN PICKER called 11;13: Zyprexa given for severe agitation . Oxygen HF + NR . oxygen sat 87% up to 91% on both.labored breathing continued. see CORN PICKER note for vitals .CORN PICKER ended 11:30 , pt sent to ICU at 12:00
[2024-12-30 12:16] LABS: Glucose, Whole Blood 157 mg/dL (60-115)
[2024-12-30] MEDS: dexmedeTOMIDine HCL/NS 400 MCG/100 ML PLAST..BAG 17 MCG IVCONT (12:43)
--- NOTE | 2024-12-30 15:33 | PM.CNPUL ---
History of Present Illness History of Present Illness Consult date: 12/30/24 Chief complaint: Hypoxia Narrative: This is an inpatient pulmonary consultation. The patient is a 59 year woman with a known history of schizoaffective disorder COPD who presented with significant hypoxia in the beginning of December. She had an echocardiogram demonstrating early tamponade with a large pericardial effusion. She did undergo pericardiocentesis. Ultimately complicated by likely aspiration pneumonitis and ARDS. She required intubation. The patient did have some altered mental status encephalopathy. She was extubated liberated from the ventilator and she was transferred to the floor. In the floor she had another bout of acute respiratory distress. She was placed on a non-rebreather also 100% high-flow still with significant respiratory distress. The patient is transferred to the ICU. She does have a guardian because of his schizoaffective disorder and other psychiatric illnesses. At this time though the patient appears to be strenuous having significant respiratory distress even on 100% oxygen. I did personally review her CT scan of the chest demonstrating significant diffuse ground-glass opacities throughout suggesting diffuse severe ARDS. She does have a sitter right now she is not able to give any additional information of her ongoing condition. Review of Systems Review of Systems: Yes Unobtainable due to mental condition and Unobtainable due to mental status PMFSH Past Medical History Medical History (Updated 12/27/24 @ 18:12 by Moe Peralta MD) COPD (chronic obstructive pulmonary disease) Anxiety Hypothyroidism HLD (hyperlipidemia) UTI (urinary tract infection) PTSD (post-traumatic stress disorder) Diabetes Schizoaffective disorder Social History Social History (Updated 12/17/24 @ 08:26 by Tia Blake DO) Household Members: None Housing: Apartment Do you presently have visiting nurse or other home services: Yes Comment: pt mcpherson a sitter Patient Tobacco Use Status: Current everyday Tobacco user Tobacco use type: Cigarette service: No Meds Allergies Allergy/AdvReac Type Severity Reaction Status Date / Time celecoxib Allergy Unknown Verified 12/17/24 08:10 fish derived (fish) Allergy Unknown Verified 12/17/24 08:10 gabapentin Allergy Unknown Verified 12/17/24 08:10 guanfacine Allergy Unknown Verified 12/17/24 08:10 ibuprofen Allergy Unknown Verified 12/17/24 08:10 olanzapine Allergy Unknown Verified 12/17/24 08:10 Penicillins Allergy Unknown Verified 12/17/24 08:10 prazosin Allergy Unknown Verified 12/17/24 08:10 Active Medications: Current Medications Acetaminophen (Acetaminophen 325 Mg Tablet) 650 mg PO Q4H PRN PRN Reason: Fever >101 Last Admin: 12/23/24 18:23 Dose: 650 mg Chlorhexidine Gluconate (Chlorhexidine Gluc Oral Rinse 15 Ml Mouthwash) 15 ml BUCCAL TID [facility] Last Admin: 12/30/24 10:54 Dose: Not Given Colchicine (Colchicine 0.6 Mg Tablet) 0.6 mg PO DAILY [facility] Last Admin: 12/30/24 10:54 Dose: Not Given Dextrose (Dextrose 50 % 25 Gm/50 Ml Syringe) 25 gm IVPUSH Q15M PRN; Protocol PRN Reason: per Hypoglycemia Standing Ord. Enoxaparin Sodium (Enoxaparin Sodium 40 Mg/0.4 Ml Syringe) 40 mg SUBCUT Q24H [facility] Last Admin: 12/30/24 12:44 Dose: 40 mg Glucose (Glucose Gel 15 Gm Gel..Gram.) 15 gm PO Q15M PRN; Protocol PRN Reason: per Hypoglycemia Standing Ord. Hydromorphone HCl (Hydromorphone Hcl 0.5 Mg/0.5 Ml Syringe) 0.5 mg IVPUSH Q3H PRN; Protocol PRN Reason: Work of breathing Last Admin: 12/30/24 08:11 Dose: 0.5 mg Cefepime HCl (Maxipime) 2 gm in 50 mls @ 100 mls/hr IV Q12H [facility] Last Admin: 12/30/24 15:06 Dose: 100 mls/hr Metronidazole (Flagyl) 500 mg in 100 mls @ 100 mls/hr IV Q8H [facility] Last Infusion: 12/30/24 12:44 Dose: Infused Nutrition (Parenteral) (Parenteral Nutrition) 1,680 mls @ 70 mls/hr IV .Q24H [facility]; Protocol Stop: 12/30/24 20:59 Last Infusion: 12/30/24 11:30 Dose: 0 mls/hr Nutrition (Parenteral) (Parenteral Nutrition) 1,680 mls @ 70 mls/hr IV .Q24H [facility]; Protocol Stop: 12/31/24 20:59 Dexmedetomidine HCl (Precedex) 400 mcg in 100 mls @ 0 mls/hr IVCONT .Q0M [facility]; Protocol Last Titration: 12/30/24 15:09 Dose: 0 mcg/kg/hr, 0 mls/hr Ibuprofen (Ibuprofen 800 Mg Tablet) 800 mg PO Q8H [facility] Last Admin: 12/30/24 11:00 Dose: Not Given Insulin Glargine (Insulin Glargine,Hum.Rec.Anlog 100 Unit/Ml 10 Ml Vial) 35 unit SUBCUT BEDTIME [facility] Last Admin: 12/29/24 21:08 Dose: 35 unit Insulin Human Lispro (Insulin Lispro 100 Unit/Ml 3 Ml Vial) 0 unit SUBCUT Q6H [facility]; Protocol Last Admin: 12/30/24 10:59 Dose: 4 unit Insulin Human Lispro (Insulin Lispro 100 Unit/Ml 3 Ml Vial) 12 unit SUBCUT Q6H [facility] Stop: 12/31/24 10:14 Last Admin: 12/30/24 11:00 Dose: Not Given Levothyroxine Sodium (Levothyroxine Sodium 100 Mcg/5 Ml Vial) 25 mcg IVPUSH DAILY@0600 [facility] Last Admin: 12/30/24 03:31 Dose: Not Given Metoprolol Tartrate (Metoprolol Tartrate 5 Mg/5 Ml Vial) 2.5 mg IVPUSH Q4H [facility]; Protocol Last Admin: 12/30/24 12:44 Dose: Not Given Pharmacy Consult (Consult Rx Parenteral Nutrition Ordering) 1 each MISCELLANE DAILY PRN PRN Reason: Consult order Quetiapine Fumarate (Quetiapine Fumarate 400 Mg Tablet) 400 mg PO BEDTIME [facility] Last Admin: 12/29/24 23:02 Dose: Not Given Risperidone (Risperidone 2 Mg Tablet) 2 mg PO BEDTIME [facility] Last Admin: 12/29/24 23:02 Dose: Not Given Risperidone (Risperidone 1 Mg Tablet) 1 mg PO DAILY [facility] Last Admin: 12/30/24 10:54 Dose: Not Given Sodium Chloride (0.9 % Sodium Chloride Flush 3 Ml Syringe) 3 ml IVFLUSH QSHIFT [facility] Last Admin: 12/30/24 07:58 Dose: 3 ml Home Medications ?Medication ?Instructions ?Recorded ?Confirmed ?Last Taken ?Type acetaminophen 325 mg tablet 650 mg PO Q6H PRN Fever/Pain 12/17/24 12/17/24 Unknown History albuterol sulfate 90 mcg/actuation 1 puff inhalation Q4H PRN 12/17/24 12/17/24 Unknown History aerosol inhaler Shortness Of Breath Or Wheezing ascorbic acid (vitamin C) 500 mg 500 mg PO DAILY 12/17/24 12/17/24 Unknown History tablet benzocaine 15 mg-menthol 3.6 mg 1 kemi mucous membrane Q2H PRN Sore 12/17/24 12/17/24 Unknown History lozenges (Cepacol Sore Throat Throat (benzocaine-menthol)) calcium carbonate (Tums E-X) 600 mg PO Q4H PRN Acid Reflux 12/17/24 12/17/24 Unknown History cholecalciferol (vitamin D3) 25 25 mcg PO DAILY 12/17/24 12/17/24 Unknown History mcg (1,000 unit) tablet (Vitamin D3) cyclobenzaprine 10 mg tablet 10 mg PO DAILY PRN Sciatica 12/17/24 12/17/24 Unknown History diphenhydramine HCl 25 mg tablet 25 mg PO Q8H PRN Allergy Symptoms 12/17/24 12/17/24 Unknown History (Benadryl Allergy) ferrous sulfate 325 mg (65 mg 325 mg PO DAILY 12/17/24 12/17/24 Unknown History iron) tablet fluticasone 250 mcg-salmeterol 50 1 inh inhalation BID 12/17/24 12/17/24 Unknown History mcg/dose blistr powdr for inhalation (Advair Diskus) fluticasone furoate 100 1 inh inhalation DAILY 12/17/24 12/17/24 Unknown History mcg-vilanterol 25 mcg/dose inhalation powder (Breo Ellipta) glucagon HCl 1 mg solution for 1 mg subcut Q15M PRN Hypoglycemia 12/17/24 12/17/24 Unknown History injection (Glucagon (HCl) Emergency Kit) hydroxyzine HCl 25 mg tablet 25 mg PO DAILY 12/17/24 12/17/24 Unknown History hydroxyzine HCl 50 mg tablet 50 mg PO DAILY 12/17/24 12/17/24 Unknown History hydroxyzine HCl 50 mg tablet 100 mg PO BID 12/17/24 12/17/24 Unknown History insulin lispro 100 unit/mL See Protocol subcut TUTHSA 12/17/24 12/17/24 Unknown History subcutaneous solution (Humalog U-100 Insulin) levothyroxine 50 mcg tablet 50 mcg PO DAILY@0600 12/17/24 12/17/24 Unknown History lidocaine 4 % topical patch 1 patch topical DAILY 12/17/24 12/17/24 Unknown History lidocaine HCl 2 % mucosal solution 15 ml mucous membrane Q6H PRN Gum 12/17/24 12/17/24 Unknown History (Lidocaine Viscous) Pain/Oral Ulcers loperamide 2 mg tablet 2 mg PO DAILY PRN Loose Stool 12/17/24 12/17/24 Unknown History loratadine 10 mg tablet 10 mg PO DAILY PRN Post Nasal Drip 12/17/24 12/17/24 Unknown History melatonin 1 mg tablet 1 mg PO BEDTIME 12/17/24 12/17/24 Unknown History melatonin 3 mg tablet 3 mg PO BEDTIME 12/17/24 12/17/24 Unknown History metformin 1,000 mg tablet 1,000 mg PO BID 12/17/24 12/17/24 Unknown History mirtazapine 15 mg tablet 7.5 mg PO BEDTIME 12/17/24 12/17/24 Unknown History naloxone 4 mg/actuation nasal 1 spray intranasal Q3M PRN Opioid 12/17/24 12/17/24 Unknown History spray (Narcan) Overdose nystatin 100,000 unit/gram topical 1 appl topical TID 12/17/24 12/17/24 Unknown History powder ondansetron HCl 4 mg tablet 4 mg PO Q6H PRN Nausea And Vomiting 12/17/24 12/17/24 Unknown History pantoprazole 40 mg tablet,delayed 40 mg PO DAILY@0630 12/17/24 12/17/24 Unknown History release polyethylene glycol 3350 17 17 g PO DAILY 12/17/24 12/17/24 Unknown History gram/dose oral powder (Miralax) quetiapine 400 mg tablet (Seroquel) 400 mg PO BEDTIME 12/17/24 12/17/24 Unknown History risperidone 1 mg tablet 1 mg PO DAILY 12/17/24 12/17/24 Unknown History risperidone 2 mg tablet (Risperdal) 2 mg PO BEDTIME 12/17/24 12/17/24 Unknown History ropinirole 0.25 mg tablet 0.25 mg PO DAILY 12/17/24 12/17/24 Unknown History rosuvastatin 10 mg tablet 10 mg PO BEDTIME 12/17/24 12/17/24 Unknown History sennosides 8.6 mg tablet (senna) 8.6 mg PO DAILY PRN Constipation 12/17/24 12/17/24 Unknown History sitagliptin phosphate 50 mg tablet 50 mg PO DAILY 12/17/24 12/17/24 Unknown History ([place]) sodium phosphates 19 gram-7 118 ml [place] DAILY PRN Constipation 12/17/24 12/17/24 Unknown History gram/118 mL enema (Fleet Enema) tramadol 50 mg tablet 50 mg PO TID 12/17/24 12/17/24 Unknown History trazodone 100 mg tablet 100 mg PO BEDTIME 12/17/24 12/17/24 Unknown History triamcinolone acetonide 55 mcg 2 spray intranasal DAILY 12/17/24 12/17/24 Unknown History nasal spray aerosol (Nasacort) Physical Exam Exam: Exam: General: Alert to self, acute distress, ill appearing Head: AT/NC ENT: dry mucous membranes Neck: supple CVS; increased RR, S1 S2 normal Lungs: coarse bilateral breath sounds, with increased Respiratory rate Abd: Soft non tender, non distended Ext: No edema and no calf tenderness MSK: moving all 4 limbs Skin: No edema Psych: UTO Neurology: moving extremities spontaneously Vital Signs: Vital Signs: Last Vital Signs Temp 97.8 F 12/30/24 07:42 Pulse 99 12/30/24 12:00 Resp 20 12/30/24 15:21 BP 112/82 12/30/24 12:00 Pulse Ox 99 12/30/24 12:00 O2 Del Method High Flow Nasal C annula, Oxymask 12/30/24 12:00 O2 Flow Rate 45 12/30/24 07:42 FiO2 85 12/30/24 07:42 Oxygen Flow Rate 60 12/29/24 16:29 BMI result Body Mass Index 26.6 Results Laboratory Findings 12/28/24 05:42 12/30/24 06:41 Abnormal lab findings: Abnormal Labs 12/17/24 12/17/24 12/17/24 08:43 08:49 09:51 WBC 11.9 H RBC Hgb 11.5 L Hct 33.7 L MCV 69.1 L MCH 23.6 L RDW Plt Count MPV 8.9 L Immature Gran % (Auto) 0.6 H Neut % (Auto) 79.1 H Lymph % (Auto) 8.8 L Eos % (Auto) Lymph # (Auto) 1.1 L Brule # (Auto) Eos # (Auto) Abs Immat Gran (auto) 0.07 H Absolute Neuts (auto) 9.4 H Absolute Nucleated RBC Nucleated RBC % (auto) ABG pH at Pt Temp ABG pCO2 at Pt Temp ABG pO2 at Pt Temp ABG HCO3 VBG pH VBG HCO3 18 L Sodium Potassium Chloride 111 H Carbon Dioxide 18 L Anion Gap BUN 20 H Creatinine POC Glucose Random Glucose 152 H Lactic Acid 2.1 H* Lactic Acid F/U @ 2Hr Lactic Acid F/U @ 4Hr Calcium Phosphorus Magnesium TIBC AST 127 H ALT 136 H Alkaline Phosphatase 118 H Troponin I High Sens C-Reactive Protein 22.84 H NT-Pro-B Natriuret Pep Total Protein Albumin Triglycerides Urine Protein 30 (1+) H Ur Leukocyte Esterase Trace H Vancomycin Trough 12/17/24 12/17/24 12/17/24 11:27 18:43 21:25 WBC RBC Hgb Hct MCV MCH RDW Plt Count MPV Immature Gran % (Auto) Neut % (Auto) Lymph % (Auto) Eos % (Auto) Lymph # (Auto) Brule # (Auto) Eos # (Auto) Abs Immat Gran (auto) Absolute Neuts (auto) Absolute Nucleated RBC Nucleated RBC % (auto) ABG pH at Pt Temp ABG pCO2 at Pt Temp ABG pO2 at Pt Temp ABG HCO3 VBG pH VBG HCO3 Sodium Potassium Chloride Carbon Dioxide Anion Gap BUN Creatinine POC Glucose 155 H 156 H Random Glucose Lactic Acid Lactic Acid F/U @ 2Hr 2.5 H* Lactic Acid F/U @ 4Hr Calcium Phosphorus Magnesium TIBC AST ALT Alkaline Phosphatase Troponin I High Sens C-Reactive Protein NT-Pro-B Natriuret Pep Total Protein Albumin Triglycerides Urine Protein Ur Leukocyte Esterase Vancomycin Trough 12/18/24 12/18/24 12/18/24 03:50 11:14 15:43 WBC 12.3 H RBC Hgb 10.0 L Hct 29.6 L MCV 69.0 L MCH 23.3 L RDW Plt Count MPV Immature Gran % (Auto) Neut % (Auto) Lymph % (Auto) Eos % (Auto) Lymph # (Auto) Brule # (Auto) Eos # (Auto) Abs Immat Gran (auto) Absolute Neuts (auto) Absolute Nucleated RBC Nucleated RBC % (auto) ABG pH at Pt Temp ABG pCO2 at Pt Temp ABG pO2 at Pt Temp ABG HCO3 VBG pH VBG HCO3 Sodium Potassium Chloride Carbon Dioxide Anion Gap BUN Creatinine POC Glucose 134 H 151 H Random Glucose Lactic Acid Lactic Acid F/U @ 2Hr Lactic Acid F/U @ 4Hr Calcium Phosphorus Magnesium TIBC AST ALT Alkaline Phosphatase Troponin I High Sens C-Reactive Protein NT-Pro-B Natriuret Pep Total Protein Albumin Triglycerides Urine Protein Ur Leukocyte Esterase Vancomycin Trough 12/18/24 12/19/24 12/19/24 20:07 05:39 07:42 WBC 14.0 H RBC Hgb 10.5 L Hct 30.2 L MCV 67.6 L MCH 23.5 L RDW Plt Count MPV Immature Gran % (Auto) 0.7 H Neut % (Auto) 84.2 H Lymph % (Auto) 7.4 L Eos % (Auto) Lymph # (Auto) 1.0 L Brule # (Auto) Eos # (Auto) Abs Immat Gran (auto) 0.10 H Absolute Neuts (auto) 11.8 H Absolute Nucleated RBC Nucleated RBC % (auto) ABG pH at Pt Temp ABG pCO2 at Pt Temp ABG pO2 at Pt Temp ABG HCO3 VBG pH VBG HCO3 Sodium Potassium Chloride 110 H Carbon Dioxide 19 L Anion Gap BUN Creatinine POC Glucose 129 H 133 H Random Glucose 122 H Lactic Acid Lactic Acid F/U @ 2Hr Lactic Acid F/U @ 4Hr Calcium Phosphorus Magnesium TIBC 147 L AST 44 H ALT 72 H Alkaline Phosphatase 199 H Troponin I High Sens C-Reactive Protein NT-Pro-B Natriuret Pep 2949.3 H Total Protein 6.2 L Albumin 3.2 L Triglycerides Urine Protein Ur Leukocyte Esterase Vancomycin Trough 12/19/24 12/19/24 12/19/24 07:43 08:57 11:12 WBC RBC Hgb Hct MCV MCH RDW Plt Count MPV Immature Gran % (Auto) Neut % (Auto) Lymph % (Auto) Eos % (Auto) Lymph # (Auto) Brule # (Auto) Eos # (Auto) Abs Immat Gran (auto) Absolute Neuts (auto) Absolute Nucleated RBC Nucleated RBC % (auto) ABG pH at Pt Temp 7.47 H ABG pCO2 at Pt Temp 21 L ABG pO2 at Pt Temp 121 H ABG HCO3 16 L VBG pH VBG HCO3 Sodium Potassium Chloride Carbon Dioxide Anion Gap BUN Creatinine POC Glucose 153 H 206 H Random Glucose Lactic Acid Lactic Acid F/U @ 2Hr Lactic Acid F/U @ 4Hr Calcium Phosphorus Magnesium TIBC AST ALT Alkaline Phosphatase Troponin I High Sens C-Reactive Protein NT-Pro-B Natriuret Pep Total Protein Albumin Triglycerides Urine Protein Ur Leukocyte Esterase Vancomycin Trough 12/19/24 12/19/24 12/20/24 16:21 21:16 04:05 WBC RBC Hgb Hct MCV MCH RDW Plt Count MPV Immature Gran % (Auto) Neut % (Auto) Lymph % (Auto) Eos % (Auto) Lymph # (Auto) Brule # (Auto) Eos # (Auto) Abs Immat Gran (auto) Absolute Neuts (auto) Absolute Nucleated RBC Nucleated RBC % (auto) ABG pH at Pt Temp 7.49 H ABG pCO2 at Pt Temp ABG pO2 at Pt Temp 55 L ABG HCO3 VBG pH VBG HCO3 Sodium Potassium Chloride Carbon Dioxide Anion Gap BUN Creatinine POC Glucose 166 H 157 H Random Glucose Lactic Acid Lactic Acid F/U @ 2Hr Lactic Acid F/U @ 4Hr Calcium Phosphorus Magnesium TIBC AST ALT Alkaline Phosphatase Troponin I High Sens C-Reactive Protein NT-Pro-B Natriuret Pep Total Protein Albumin Triglycerides Urine Protein Ur Leukocyte Esterase Vancomycin Trough 12/20/24 12/20/24 12/20/24 05:57 07:36 11:37 WBC RBC 3.80 L Hgb 8.8 L Hct 25.9 L MCV 68.2 L MCH 23.2 L RDW Plt Count MPV Immature Gran % (Auto) 0.7 H Neut % (Auto) 81.5 H Lymph % (Auto) 9.7 L Eos % (Auto) Lymph # (Auto) 0.9 L Brule # (Auto) Eos # (Auto) Abs Immat Gran (auto) 0.07 H Absolute Neuts (auto) Absolute Nucleated RBC 0.020 H Nucleated RBC % (auto) ABG pH at Pt Temp ABG pCO2 at Pt Temp ABG pO2 at Pt Temp ABG HCO3 VBG pH VBG HCO3 Sodium Potassium 2.9 L* Chloride 113 H Carbon Dioxide Anion Gap 10 L BUN Creatinine POC Glucose 144 H 146 H Random Glucose 136 H Lactic Acid Lactic Acid F/U @ 2Hr Lactic Acid F/U @ 4Hr Calcium Phosphorus 2.2 L Magnesium TIBC AST ALT Alkaline Phosphatase Troponin I High Sens C-Reactive Protein NT-Pro-B Natriuret Pep Total Protein Albumin 3.1 L Triglycerides Urine Protein Ur Leukocyte Esterase Vancomycin Trough 12/20/24 12/20/24 12/21/24 17:20 23:20 05:38 WBC RBC Hgb 10.2 L Hct 29.2 L MCV 66.8 L MCH 23.3 L RDW Plt Count MPV Immature Gran % (Auto) 0.5 H Neut % (Auto) 83.0 H Lymph % (Auto) 7.4 L Eos % (Auto) Lymph # (Auto) 0.7 L Brule # (Auto) Eos # (Auto) Abs Immat Gran (auto) 0.05 H Absolute Neuts (auto) Absolute Nucleated RBC Nucleated RBC % (auto) ABG pH at Pt Temp ABG pCO2 at Pt Temp ABG pO2 at Pt Temp ABG HCO3 VBG pH VBG HCO3 Sodium Potassium 2.5 L* Chloride Carbon Dioxide Anion Gap BUN Creatinine POC Glucose 141 H 170 H Random Glucose 179 H Lactic Acid Lactic Acid F/U @ 2Hr Lactic Acid F/U @ 4Hr Calcium Phosphorus 1.8 L Magnesium TIBC AST ALT Alkaline Phosphatase Troponin I High Sens C-Reactive Protein NT-Pro-B Natriuret Pep Total Protein Albumin Triglycerides Urine Protein Ur Leukocyte Esterase Vancomycin Trough 12/21/24 12/21/24 12/21/24 05:42 12:00 17:22 WBC RBC Hgb Hct MCV MCH RDW Plt Count MPV Immature Gran % (Auto) Neut % (Auto) Lymph % (Auto) Eos % (Auto) Lymph # (Auto) Brule # (Auto) Eos # (Auto) Abs Immat Gran (auto) Absolute Neuts (auto) Absolute Nucleated RBC Nucleated RBC % (auto) ABG pH at Pt Temp ABG pCO2 at Pt Temp ABG pO2 at Pt Temp ABG HCO3 VBG pH 7.55 H VBG HCO3 Sodium Potassium Chloride Carbon Dioxide Anion Gap BUN Creatinine POC Glucose 163 H 155 H Random Glucose Lactic Acid Lactic Acid F/U @ 2Hr Lactic Acid F/U @ 4Hr Calcium Phosphorus Magnesium TIBC AST ALT Alkaline Phosphatase Troponin I High Sens C-Reactive Protein NT-Pro-B Natriuret Pep Total Protein Albumin Triglycerides Urine Protein Ur Leukocyte Esterase Vancomycin Trough 12/21/24 12/22/24 12/22/24 23:14 01:05 02:36 WBC RBC Hgb Hct MCV MCH RDW Plt Count MPV Immature Gran % (Auto) Neut % (Auto) Lymph % (Auto) Eos % (Auto) Lymph # (Auto) Brule # (Auto) Eos # (Auto) Abs Immat Gran (auto) Absolute Neuts (auto) Absolute Nucleated RBC Nucleated RBC % (auto) ABG pH at Pt Temp 7.50 H ABG pCO2 at Pt Temp 28 L 31 L ABG pO2 at Pt Temp 61 L 149 H ABG HCO3 VBG pH VBG HCO3 Sodium Potassium 2.6 L* Chloride 111 H Carbon Dioxide Anion Gap BUN Creatinine POC Glucose Random Glucose 167 H Lactic Acid Lactic Acid F/U @ 2Hr Lactic Acid F/U @ 4Hr Calcium Phosphorus Magnesium 1.5 L TIBC AST ALT Alkaline Phosphatase Troponin I High Sens C-Reactive Protein NT-Pro-B Natriuret Pep Total Protein Albumin Triglycerides Urine Protein Ur Leukocyte Esterase Vancomycin Trough 12/22/24 12/22/24 12/22/24 02:43 04:56 04:58 WBC RBC 4.07 L Hgb 9.2 L Hct 27.6 L MCV 67.8 L MCH 22.6 L RDW Plt Count MPV Immature Gran % (Auto) 0.6 H Neut % (Auto) 81.1 H Lymph % (Auto) 8.8 L Eos % (Auto) Lymph # (Auto) 0.7 L Brule # (Auto) Eos # (Auto) Abs Immat Gran (auto) 0.05 H Absolute Neuts (auto) Absolute Nucleated RBC Nucleated RBC % (auto) ABG pH at Pt Temp ABG pCO2 at Pt Temp ABG pO2 at Pt Temp ABG HCO3 VBG pH 7.50 H VBG HCO3 Sodium Potassium Chloride 113 H Carbon Dioxide 20 L Anion Gap BUN Creatinine POC Glucose Random Glucose 169 H Lactic Acid Lactic Acid F/U @ 2Hr Lactic Acid F/U @ 4Hr Calcium Phosphorus Magnesium TIBC AST ALT Alkaline Phosphatase Troponin I High Sens C-Reactive Protein NT-Pro-B Natriuret Pep Total Protein Albumin 3.1 L Triglycerides Urine Protein Ur Leukocyte Esterase Vancomycin Trough 12/22/24 12/22/24 12/22/24 11:28 17:58 17:59 WBC RBC Hgb Hct MCV MCH RDW Plt Count MPV Immature Gran % (Auto) Neut % (Auto) Lymph % (Auto) Eos % (Auto) Lymph # (Auto) Brule # (Auto) Eos # (Auto) Abs Immat Gran (auto) Absolute Neuts (auto) Absolute Nucleated RBC Nucleated RBC % (auto) ABG pH at Pt Temp ABG pCO2 at Pt Temp ABG pO2 at Pt Temp ABG HCO3 VBG pH VBG HCO3 Sodium Potassium Chloride Carbon Dioxide Anion Gap BUN Creatinine POC Glucose 138 H 129 H Random Glucose Lactic Acid Lactic Acid F/U @ 2Hr Lactic Acid F/U @ 4Hr Calcium Phosphorus Magnesium TIBC AST ALT Alkaline Phosphatase Troponin I High Sens C-Reactive Protein NT-Pro-B Natriuret Pep Total Protein Albumin Triglycerides Urine Protein Ur Leukocyte Esterase Vancomycin Trough 20.8 H 12/22/24 12/22/24 12/23/24 20:00 23:47 05:34 WBC RBC Hgb Hct MCV MCH RDW Plt Count MPV Immature Gran % (Auto) Neut % (Auto) Lymph % (Auto) Eos % (Auto) Lymph # (Auto) Brule # (Auto) Eos # (Auto) Abs Immat Gran (auto) Absolute Neuts (auto) Absolute Nucleated RBC Nucleated RBC % (auto) ABG pH at Pt Temp ABG pCO2 at Pt Temp ABG pO2 at Pt Temp ABG HCO3 VBG pH VBG HCO3 Sodium Potassium Chloride 111 H Carbon Dioxide 18 L Anion Gap BUN Creatinine POC Glucose 180 H 179 H Random Glucose 160 H Lactic Acid Lactic Acid F/U @ 2Hr Lactic Acid F/U @ 4Hr Calcium Phosphorus Magnesium TIBC AST ALT Alkaline Phosphatase Troponin I High Sens C-Reactive Protein NT-Pro-B Natriuret Pep Total Protein Albumin Triglycerides Urine Protein Ur Leukocyte Esterase Vancomycin Trough 12/23/24 12/23/24 12/23/24 05:38 05:40 11:41 WBC RBC 3.61 L Hgb 8.2 L Hct 25.0 L MCV 69.3 L MCH 22.7 L RDW Plt Count MPV Immature Gran % (Auto) 0.9 H Neut % (Auto) 91.3 H Lymph % (Auto) 5.1 L Eos % (Auto) Lymph # (Auto) 0.5 L Brule # (Auto) Eos # (Auto) Abs Immat Gran (auto) 0.08 H Absolute Neuts (auto) 8.4 H Absolute Nucleated RBC Nucleated RBC % (auto) ABG pH at Pt Temp ABG pCO2 at Pt Temp ABG pO2 at Pt Temp ABG HCO3 VBG pH 7.49 H VBG HCO3 Sodium Potassium Chloride 113 H Carbon Dioxide Anion Gap BUN Creatinine POC Glucose 153 H Random Glucose 185 H Lactic Acid Lactic Acid F/U @ 2Hr Lactic Acid F/U @ 4Hr Calcium Phosphorus Magnesium TIBC AST ALT Alkaline Phosphatase Troponin I High Sens C-Reactive Protein NT-Pro-B Natriuret Pep Total Protein Albumin Triglycerides Urine Protein Ur Leukocyte Esterase Vancomycin Trough 12/23/24 12/23/24 12/23/24 20:03 22:43 23:59 WBC RBC Hgb Hct MCV MCH RDW Plt Count MPV Immature Gran % (Auto) Neut % (Auto) Lymph % (Auto) Eos % (Auto) Lymph # (Auto) Brule # (Auto) Eos # (Auto) Abs Immat Gran (auto) Absolute Neuts (auto) Absolute Nucleated RBC Nucleated RBC % (auto) ABG pH at Pt Temp ABG pCO2 at Pt Temp ABG pO2 at Pt Temp ABG HCO3 VBG pH 7.59 H VBG HCO3 Sodium Potassium 2.6 L* D Chloride Carbon Dioxide Anion Gap BUN Creatinine POC Glucose 118 H Random Glucose Lactic Acid Lactic Acid F/U @ 2Hr Lactic Acid F/U @ 4Hr Calcium Phosphorus Magnesium TIBC AST ALT Alkaline Phosphatase Troponin I High Sens C-Reactive Protein NT-Pro-B Natriuret Pep Total Protein Albumin Triglycerides Urine Protein Ur Leukocyte Esterase Vancomycin Trough 12/24/24 12/24/24 12/24/24 05:31 05:34 06:13 WBC RBC 3.83 L Hgb 8.7 L Hct 26.5 L MCV 69.2 L MCH 22.7 L RDW Plt Count MPV Immature Gran % (Auto) 0.7 H Neut % (Auto) Lymph % (Auto) 14.1 L Eos % (Auto) 4.7 H Lymph # (Auto) Brule # (Auto) Eos # (Auto) 0.5 H Abs Immat Gran (auto) 0.08 H Absolute Neuts (auto) Absolute Nucleated RBC Nucleated RBC % (auto) ABG pH at Pt Temp ABG pCO2 at Pt Temp ABG pO2 at Pt Temp ABG HCO3 VBG pH 7.46 H VBG HCO3 Sodium Potassium Chloride 114 H Carbon Dioxide Anion Gap BUN 19 H Creatinine POC Glucose 147 H Random Glucose 140 H Lactic Acid Lactic Acid F/U @ 2Hr Lactic Acid F/U @ 4Hr Calcium Phosphorus 2.1 L Magnesium TIBC AST ALT Alkaline Phosphatase Troponin I High Sens C-Reactive Protein NT-Pro-B Natriuret Pep Total Protein Albumin Triglycerides Urine Protein Ur Leukocyte Esterase Vancomycin Trough 12/24/24 12/24/24 12/24/24 11:49 17:36 19:56 WBC RBC Hgb Hct MCV MCH RDW Plt Count MPV Immature Gran % (Auto) Neut % (Auto) Lymph % (Auto) Eos % (Auto) Lymph # (Auto) Brule # (Auto) Eos # (Auto) Abs Immat Gran (auto) Absolute Neuts (auto) Absolute Nucleated RBC Nucleated RBC % (auto) ABG pH at Pt Temp ABG pCO2 at Pt Temp ABG pO2 at Pt Temp ABG HCO3 VBG pH VBG HCO3 Sodium 148 H Potassium Chloride Carbon Dioxide Anion Gap BUN 18 H Creatinine POC Glucose 160 H 167 H Random Glucose 161 H Lactic Acid Lactic Acid F/U @ 2Hr Lactic Acid F/U @ 4Hr Calcium Phosphorus Magnesium TIBC AST ALT Alkaline Phosphatase Troponin I High Sens C-Reactive Protein NT-Pro-B Natriuret Pep Total Protein Albumin Triglycerides Urine Protein Ur Leukocyte Esterase Vancomycin Trough 12/24/24 12/25/24 12/25/24 23:55 05:27 05:28 WBC 11.6 H RBC Hgb 10.4 L Hct 32.1 L D MCV 68.3 L MCH 22.1 L RDW Plt Count 528 H D MPV Immature Gran % (Auto) 1.1 H Neut % (Auto) 81.0 H Lymph % (Auto) 8.6 L Eos % (Auto) Lymph # (Auto) 1.0 L Brule # (Auto) Eos # (Auto) Abs Immat Gran (auto) 0.13 H Absolute Neuts (auto) 9.4 H Absolute Nucleated RBC Nucleated RBC % (auto) ABG pH at Pt Temp ABG pCO2 at Pt Temp ABG pO2 at Pt Temp ABG HCO3 VBG pH 7.58 H VBG HCO3 Sodium 149 H Potassium Chloride 109 H Carbon Dioxide Anion Gap BUN 21 H Creatinine POC Glucose 171 H Random Glucose 184 H Lactic Acid Lactic Acid F/U @ 2Hr Lactic Acid F/U @ 4Hr Calcium 10.5 H Phosphorus Magnesium TIBC AST ALT Alkaline Phosphatase Troponin I High Sens C-Reactive Protein NT-Pro-B Natriuret Pep Total Protein Albumin Triglycerides Urine Protein Ur Leukocyte Esterase Vancomycin Trough 12/25/24 12/25/24 12/26/24 11:57 18:27 00:15 WBC RBC Hgb Hct MCV MCH RDW Plt Count MPV Immature Gran % (Auto) Neut % (Auto) Lymph % (Auto) Eos % (Auto) Lymph # (Auto) Brule # (Auto) Eos # (Auto) Abs Immat Gran (auto) Absolute Neuts (auto) Absolute Nucleated RBC Nucleated RBC % (auto) ABG pH at Pt Temp ABG pCO2 at Pt Temp ABG pO2 at Pt Temp ABG HCO3 VBG pH VBG HCO3 Sodium Potassium Chloride Carbon Dioxide Anion Gap BUN Creatinine POC Glucose 207 H 183 H 170 H Random Glucose Lactic Acid Lactic Acid F/U @ 2Hr Lactic Acid F/U @ 4Hr Calcium Phosphorus Magnesium TIBC AST ALT Alkaline Phosphatase Troponin I High Sens C-Reactive Protein NT-Pro-B Natriuret Pep Total Protein Albumin Triglycerides Urine Protein Ur Leukocyte Esterase Vancomycin Trough 12/26/24 12/26/24 12/26/24 01:39 03:34 04:45 WBC RBC Hgb Hct MCV MCH RDW Plt Count MPV Immature Gran % (Auto) Neut % (Auto) Lymph % (Auto) Eos % (Auto) Lymph # (Auto) Brule # (Auto) Eos # (Auto) Abs Immat Gran (auto) Absolute Neuts (auto) Absolute Nucleated RBC Nucleated RBC % (auto) ABG pH at Pt Temp 7.59 H ABG pCO2 at Pt Temp 28 L ABG pO2 at Pt Temp 72 L ABG HCO3 VBG pH VBG HCO3 Sodium 149 H Potassium 5.7 H D Chloride Carbon Dioxide Anion Gap 25 H BUN 53 H Creatinine POC Glucose 156 H Random Glucose 185 H Lactic Acid 2.5 H* Lactic Acid F/U @ 2Hr Lactic Acid F/U @ 4Hr Calcium 10.9 H Phosphorus Magnesium TIBC AST ALT Alkaline Phosphatase 277 H Troponin I High Sens 31.3 H D C-Reactive Protein NT-Pro-B Natriuret Pep Total Protein Albumin Triglycerides Urine Protein Ur Leukocyte Esterase Vancomycin Trough 12/26/24 12/26/24 12/26/24 05:53 05:57 09:27 WBC 13.1 H RBC Hgb 11.5 L Hct 35.1 L MCV 68.6 L MCH 22.5 L RDW Plt Count 654 H MPV Immature Gran % (Auto) 0.8 H Neut % (Auto) 80.1 H Lymph % (Auto) 7.9 L Eos % (Auto) Lymph # (Auto) 1.0 L Brule # (Auto) 1.4 H Eos # (Auto) Abs Immat Gran (auto) 0.11 H Absolute Neuts (auto) 10.5 H Absolute Nucleated RBC 0.030 H Nucleated RBC % (auto) ABG pH at Pt Temp ABG pCO2 at Pt Temp ABG pO2 at Pt Temp ABG HCO3 VBG pH 7.61 H* VBG HCO3 29 H Sodium 153 H Potassium 2.9 L* D Chloride Carbon Dioxide Anion Gap 22 H BUN 57 H Creatinine 1.52 H POC Glucose 310 H Random Glucose 339 H Lactic Acid Lactic Acid F/U @ 2Hr 3.6 H* Lactic Acid F/U @ 4Hr 2.6 H* Calcium 11.1 H Phosphorus Magnesium TIBC AST ALT Alkaline Phosphatase Troponin I High Sens C-Reactive Protein NT-Pro-B Natriuret Pep Total Protein Albumin Triglycerides Urine Protein Ur Leukocyte Esterase Vancomycin Trough 12/26/24 12/26/24 12/26/24 09:38 12:41 17:10 WBC RBC Hgb Hct MCV MCH RDW Plt Count MPV Immature Gran % (Auto) Neut % (Auto) Lymph % (Auto) Eos % (Auto) Lymph # (Auto) Brule # (Auto) Eos # (Auto) Abs Immat Gran (auto) Absolute Neuts (auto) Absolute Nucleated RBC Nucleated RBC % (auto) ABG pH at Pt Temp ABG pCO2 at Pt Temp ABG pO2 at Pt Temp ABG HCO3 VBG pH 7.56 H VBG HCO3 33 H Sodium 154 H Potassium Chloride 114 H Carbon Dioxide Anion Gap BUN 62 H Creatinine POC Glucose 196 H Random Glucose 238 H Lactic Acid Lactic Acid F/U @ 2Hr Lactic Acid F/U @ 4Hr Calcium 10.6 H Phosphorus Magnesium TIBC AST ALT Alkaline Phosphatase Troponin I High Sens C-Reactive Protein NT-Pro-B Natriuret Pep Total Protein Albumin Triglycerides Urine Protein Ur Leukocyte Esterase Vancomycin Trough 12/26/24 12/26/24 12/27/24 18:02 18:48 01:10 WBC RBC Hgb Hct MCV MCH RDW Plt Count MPV Immature Gran % (Auto) Neut % (Auto) Lymph % (Auto) Eos % (Auto) Lymph # (Auto) Brule # (Auto) Eos # (Auto) Abs Immat Gran (auto) Absolute Neuts (auto) Absolute Nucleated RBC Nucleated RBC % (auto) ABG pH at Pt Temp ABG pCO2 at Pt Temp ABG pO2 at Pt Temp ABG HCO3 VBG pH VBG HCO3 Sodium Potassium Chloride Carbon Dioxide Anion Gap BUN Creatinine POC Glucose 219 H 246 H 340 H Random Glucose Lactic Acid Lactic Acid F/U @ 2Hr Lactic Acid F/U @ 4Hr Calcium Phosphorus Magnesium TIBC AST ALT Alkaline Phosphatase Troponin I High Sens C-Reactive Protein NT-Pro-B Natriuret Pep Total Protein Albumin Triglycerides Urine Protein Ur Leukocyte Esterase Vancomycin Trough 12/27/24 12/27/24 12/27/24 05:09 07:40 11:50 WBC RBC Hgb Hct MCV MCH RDW Plt Count MPV Immature Gran % (Auto) Neut % (Auto) Lymph % (Auto) Eos % (Auto) Lymph # (Auto) Brule # (Auto) Eos # (Auto) Abs Immat Gran (auto) Absolute Neuts (auto) Absolute Nucleated RBC Nucleated RBC % (auto) ABG pH at Pt Temp ABG pCO2 at Pt Temp ABG pO2 at Pt Temp ABG HCO3 VBG pH VBG HCO3 Sodium 156 H Potassium Chloride 118 H Carbon Dioxide 21 L Anion Gap 21 H BUN 60 H Creatinine POC Glucose 296 H 326 H Random Glucose 346 H Lactic Acid Lactic Acid F/U @ 2Hr Lactic Acid F/U @ 4Hr Calcium 10.3 H Phosphorus Magnesium TIBC AST ALT Alkaline Phosphatase 222 H Troponin I High Sens C-Reactive Protein NT-Pro-B Natriuret Pep Total Protein Albumin Triglycerides Urine Protein Ur Leukocyte Esterase Vancomycin Trough 12/27/24 12/27/24 12/27/24 17:54 22:32 22:58 WBC RBC Hgb Hct MCV MCH RDW Plt Count MPV Immature Gran % (Auto) Neut % (Auto) Lymph % (Auto) Eos % (Auto) Lymph # (Auto) Brule # (Auto) Eos # (Auto) Abs Immat Gran (auto) Absolute Neuts (auto) Absolute Nucleated RBC Nucleated RBC % (auto) ABG pH at Pt Temp ABG pCO2 at Pt Temp ABG pO2 at Pt Temp ABG HCO3 VBG pH VBG HCO3 Sodium 154 H Potassium Chloride 118 H Carbon Dioxide 18 L Anion Gap 22 H BUN 57 H Creatinine POC Glucose 301 H 366 H* Random Glucose 414 H* Lactic Acid Lactic Acid F/U @ 2Hr Lactic Acid F/U @ 4Hr Calcium Phosphorus Magnesium TIBC AST ALT Alkaline Phosphatase Troponin I High Sens C-Reactive Protein NT-Pro-B Natriuret Pep Total Protein Albumin Triglycerides Urine Protein Ur Leukocyte Esterase Vancomycin Trough 12/28/24 12/28/24 12/28/24 00:50 05:42 05:46 WBC 21.7 H RBC 5.56 H Hgb Hct MCV 70.3 L MCH 22.3 L RDW 16.5 H Plt Count 670 H MPV Immature Gran % (Auto) Neut % (Auto) Lymph % (Auto) Eos % (Auto) Lymph # (Auto) Brule # (Auto) Eos # (Auto) Abs Immat Gran (auto) Absolute Neuts (auto) Absolute Nucleated RBC 0.270 H Nucleated RBC % (auto) 1.2 H ABG pH at Pt Temp ABG pCO2 at Pt Temp ABG pO2 at Pt Temp ABG HCO3 VBG pH VBG HCO3 Sodium 159 H Potassium Chloride 117 H Carbon Dioxide Anion Gap 22 H BUN 62 H Creatinine POC Glucose 399 H* 383 H* Random Glucose 396 H* Lactic Acid Lactic Acid F/U @ 2Hr Lactic Acid F/U @ 4Hr Calcium 10.7 H Phosphorus Magnesium 2.8 H TIBC AST ALT Alkaline Phosphatase 214 H Troponin I High Sens C-Reactive Protein NT-Pro-B Natriuret Pep Total Protein Albumin Triglycerides 290 H Urine Protein Ur Leukocyte Esterase Vancomycin Trough 12/28/24 12/28/24 12/28/24 11:45 17:32 18:19 WBC RBC Hgb Hct MCV MCH RDW Plt Count MPV Immature Gran % (Auto) Neut % (Auto) Lymph % (Auto) Eos % (Auto) Lymph # (Auto) Brule # (Auto) Eos # (Auto) Abs Immat Gran (auto) Absolute Neuts (auto) Absolute Nucleated RBC Nucleated RBC % (auto) ABG pH at Pt Temp ABG pCO2 at Pt Temp ABG pO2 at Pt Temp ABG HCO3 VBG pH VBG HCO3 Sodium Potassium Chloride Carbon Dioxide Anion Gap BUN Creatinine POC Glucose 466 H* 528 H* Random Glucose Lactic Acid Lactic Acid F/U @ 2Hr Lactic Acid F/U @ 4Hr Calcium Phosphorus Magnesium TIBC AST ALT Alkaline Phosphatase Troponin I High Sens C-Reactive Protein NT-Pro-B Natriuret Pep 688.5 H Total Protein Albumin Triglycerides Urine Protein Ur Leukocyte Esterase Vancomycin Trough 12/29/24 12/29/24 12/29/24 00:27 03:05 03:44 WBC RBC Hgb Hct MCV MCH RDW Plt Count MPV Immature Gran % (Auto) Neut % (Auto) Lymph % (Auto) Eos % (Auto) Lymph # (Auto) Brule # (Auto) Eos # (Auto) Abs Immat Gran (auto) Absolute Neuts (auto) Absolute Nucleated RBC Nucleated RBC % (auto) ABG pH at Pt Temp ABG pCO2 at Pt Temp ABG pO2 at Pt Temp ABG HCO3 VBG pH VBG HCO3 Sodium Potassium Chloride 112 H Carbon Dioxide 20 L Anion Gap BUN 55 H Creatinine POC Glucose 530 H* 550 H* Random Glucose 601 H* Lactic Acid Lactic Acid F/U @ 2Hr Lactic Acid F/U @ 4Hr Calcium Phosphorus Magnesium 2.7 H TIBC AST ALT Alkaline Phosphatase Troponin I High Sens C-Reactive Protein NT-Pro-B Natriuret Pep Total Protein Albumin Triglycerides Urine Protein Ur Leukocyte Esterase Vancomycin Trough 12/29/24 12/29/24 12/29/24 05:23 07:42 09:32 WBC RBC Hgb Hct MCV MCH RDW Plt Count MPV Immature Gran % (Auto) Neut % (Auto) Lymph % (Auto) Eos % (Auto) Lymph # (Auto) Brule # (Auto) Eos # (Auto) Abs Immat Gran (auto) Absolute Neuts (auto) Absolute Nucleated RBC Nucleated RBC % (auto) ABG pH at Pt Temp ABG pCO2 at Pt Temp ABG pO2 at Pt Temp ABG HCO3 VBG pH VBG HCO3 Sodium Potassium Chloride Carbon Dioxide Anion Gap BUN Creatinine POC Glucose 510 H* 300 H 281 H Random Glucose Lactic Acid Lactic Acid F/U @ 2Hr Lactic Acid F/U @ 4Hr Calcium Phosphorus Magnesium TIBC AST ALT Alkaline Phosphatase Troponin I High Sens C-Reactive Protein NT-Pro-B Natriuret Pep Total Protein Albumin Triglycerides Urine Protein Ur Leukocyte Esterase Vancomycin Trough 12/29/24 12/29/24 12/29/24 11:25 11:45 15:40 WBC RBC Hgb Hct MCV MCH RDW Plt Count MPV Immature Gran % (Auto) Neut % (Auto) Lymph % (Auto) Eos % (Auto) Lymph # (Auto) Brule # (Auto) Eos # (Auto) Abs Immat Gran (auto) Absolute Neuts (auto) Absolute Nucleated RBC Nucleated RBC % (auto) ABG pH at Pt Temp ABG pCO2 at Pt Temp ABG pO2 at Pt Temp ABG HCO3 VBG pH VBG HCO3 Sodium 149 H Potassium Chloride 116 H Carbon Dioxide 20 L Anion Gap BUN 52 H Creatinine POC Glucose 323 H 308 H Random Glucose 349 H Lactic Acid Lactic Acid F/U @ 2Hr Lactic Acid F/U @ 4Hr Calcium Phosphorus Magnesium TIBC AST ALT Alkaline Phosphatase 160 H Troponin I High Sens C-Reactive Protein NT-Pro-B Natriuret Pep Total Protein 5.9 L Albumin 3.3 L Triglycerides Urine Protein Ur Leukocyte Esterase Vancomycin Trough 12/29/24 12/29/24 12/30/24 21:01 23:53 03:06 WBC RBC Hgb Hct MCV MCH RDW Plt Count MPV Immature Gran % (Auto) Neut % (Auto) Lymph % (Auto) Eos % (Auto) Lymph # (Auto) Brule # (Auto) Eos # (Auto) Abs Immat Gran (auto) Absolute Neuts (auto) Absolute Nucleated RBC Nucleated RBC % (auto) ABG pH at Pt Temp ABG pCO2 at Pt Temp ABG pO2 at Pt Temp ABG HCO3 VBG pH VBG HCO3 Sodium Potassium Chloride Carbon Dioxide Anion Gap BUN Creatinine POC Glucose 270 H 272 H 327 H Random Glucose Lactic Acid Lactic Acid F/U @ 2Hr Lactic Acid F/U @ 4Hr Calcium Phosphorus Magnesium TIBC AST ALT Alkaline Phosphatase Troponin I High Sens C-Reactive Protein NT-Pro-B Natriuret Pep Total Protein Albumin Triglycerides Urine Protein Ur Leukocyte Esterase Vancomycin Trough 12/30/24 12/30/24 12/30/24 06:41 06:42 10:43 WBC RBC Hgb Hct MCV MCH RDW Plt Count MPV Immature Gran % (Auto) Neut % (Auto) Lymph % (Auto) Eos % (Auto) Lymph # (Auto) Brule # (Auto) Eos # (Auto) Abs Immat Gran (auto) Absolute Neuts (auto) Absolute Nucleated RBC Nucleated RBC % (auto) ABG pH at Pt Temp ABG pCO2 at Pt Temp ABG pO2 at Pt Temp ABG HCO3 VBG pH VBG HCO3 Sodium 152 H Potassium Chloride 120 H Carbon Dioxide 19 L Anion Gap BUN 53 H Creatinine POC Glucose 191 H 222 H Random Glucose 204 H Lactic Acid Lactic Acid F/U @ 2Hr Lactic Acid F/U @ 4Hr Calcium Phosphorus Magnesium TIBC AST ALT Alkaline Phosphatase 148 H Troponin I High Sens C-Reactive Protein NT-Pro-B Natriuret Pep Total Protein 5.9 L Albumin 3.2 L Triglycerides Urine Protein Ur Leukocyte Esterase Vancomycin Trough 12/30/24 12:12 WBC RBC Hgb Hct MCV MCH RDW Plt Count MPV Immature Gran % (Auto) Neut % (Auto) Lymph % (Auto) Eos % (Auto) Lymph # (Auto) Brule # (Auto) Eos # (Auto) Abs Immat Gran (auto) Absolute Neuts (auto) Absolute Nucleated RBC Nucleated RBC % (auto) ABG pH at Pt Temp ABG pCO2 at Pt Temp ABG pO2 at Pt Temp ABG HCO3 VBG pH VBG HCO3 Sodium Potassium Chloride Carbon Dioxide Anion Gap BUN Creatinine POC Glucose 157 H Random Glucose Lactic Acid Lactic Acid F/U @ 2Hr Lactic Acid F/U @ 4Hr Calcium Phosphorus Magnesium TIBC AST ALT Alkaline Phosphatase Troponin I High Sens C-Reactive Protein NT-Pro-B Natriuret Pep Total Protein Albumin Triglycerides Urine Protein Ur Leukocyte Esterase Vancomycin Trough Microbiology: Microbiology 12/22/24 20:59 Blood - Venous Blood Culture - Final No growth after 5 days. 12/22/24 02:49 Blood - Venous Blood Culture - Final No growth after 5 days. 12/22/24 02:49 Blood - Venous Blood Culture - Final No growth after 5 days. 12/19/24 18:25 Pericardial Fluid Gram Stain - Final 12/19/24 18:25 Pericardial Fluid Anaerobic Culture - Final NO GROWTH AFTER 5 DAYS 12/19/24 18:25 Pericardial Fluid Body Fluid Culture - Final No growth after 2 days 12/17/24 08:52 Blood - Venous Blood Culture - Final No growth after 5 days. 12/17/24 08:42 Blood - Venous Blood Culture - Final No growth after 5 days. Assessment and Plan (1) Pericardial effusion with cardiac tamponade: Status: Acute (2) Encephalopathy acute: Status: Acute (3) COPD (chronic obstructive pulmonary disease): Status: Acute (4) Pneumonia: Qualifiers: Laterality: unspecified laterality Lung location: unspecified part of lung Pneumonia type: due to unspecified organism Qualified Code(s): J18.9 - Pneumonia, unspecified organism Status: Acute (5) ARDS (adult respiratory distress syndrome): Status: Acute (6) Pulmonary edema: Status: Acute Plan Based on her acute respiratory distress patient should be intubated for airway protection and for ventilation. Would recommend deep cultures to assess for ongoing infectious process that may be precipitating the ARDS Diuresis as tolerated Goals of care should be discussed with guardian. The patient is in critical condition. Procedures Date of Service Date of Service: 12/30/24
--- NOTE | 2024-12-30 16:46 | P.PNIM_ITS ---
Subjective Subjective Date of Service: 12/30/24 Interval History: Patient seen and examined at bedside this morning, with worsening respiratory failure, hypernatremia. Rapid response was called, with worsening oxygenation. We will upgrade to the ICU. Physical Exam 2 Exam: Exam: General: Alert to self, acute distress, ill appearing, in respiratory distress Head: AT/NC ENT: dry mucous membranes Neck: supple CVS; increased RR, S1 S2 normal Lungs: coarse bilateral breath sounds, with increased Respiratory rate Abd: Soft non tender, non distended Ext: No edema and no calf tenderness MSK: moving all 4 limbs Skin: No edema Psych: UTO Neurology: moving extremities spontaneously Vital Signs: Vital Signs: Last Vital Signs Temp 97.8 F 12/30/24 07:42 Pulse 134 H 12/30/24 16:00 Resp 15 12/30/24 16:00 BP 111/42 L 12/30/24 16:00 Pulse Ox 94 12/30/24 16:00 O2 Del Method High Flow Nasal C annula 12/30/24 16:00 O2 Flow Rate 50 12/30/24 16:00 FiO2 100 12/30/24 16:00 Oxygen Flow Rate 60 12/29/24 16:29 BMI result Body Mass Index 26.6 Objective Data Active Medications Acetaminophen (Acetaminophen 325 Mg Tablet) 650 mg PO Q4H PRN PRN Reason: Fever >101 Last Admin: 12/23/24 18:23 Dose: 650 mg Documented By: CAL Chlorhexidine Gluconate (Chlorhexidine Gluc Oral Rinse 15 Ml Mouthwash) 15 ml BUCCAL TID [facility] Last Admin: 12/30/24 10:54 Dose: Not Given Documented By: MINE Non-Admin Reason: Patient Refused Colchicine (Colchicine 0.6 Mg Tablet) 0.6 mg PO DAILY [facility] Last Admin: 12/30/24 10:54 Dose: Not Given Documented By: MINE Non-Admin Reason: NPO Dextrose (Dextrose 50 % 25 Gm/50 Ml Syringe) 25 gm IVPUSH Q15M PRN; Protocol PRN Reason: per Hypoglycemia Standing Ord. Enoxaparin Sodium (Enoxaparin Sodium 40 Mg/0.4 Ml Syringe) 40 mg SUBCUT Q24H [facility] Last Admin: 12/30/24 12:44 Dose: 40 mg Documented By: CAL Glucose (Glucose Gel 15 Gm Gel..Gram.) 15 gm PO Q15M PRN; Protocol PRN Reason: per Hypoglycemia Standing Ord. Hydromorphone HCl (Hydromorphone Hcl 0.5 Mg/0.5 Ml Syringe) 0.5 mg IVPUSH Q3H PRN; Protocol PRN Reason: Work of breathing Last Admin: 12/30/24 08:11 Dose: 0.5 mg Documented By: MINE Cefepime HCl (Maxipime) 2 gm in 50 mls @ 100 mls/hr IV Q12H [facility] Last Infusion: 12/30/24 16:20 Dose: Infused Documented By: CAL Metronidazole (Flagyl) 500 mg in 100 mls @ 100 mls/hr IV Q8H [facility] Last Infusion: 12/30/24 12:44 Dose: Infused Documented By: CAL Nutrition (Parenteral) (Parenteral Nutrition) 1,680 mls @ 70 mls/hr IV .Q24H [facility]AN[facility]; Protocol Stop: 12/30/24 20:59 Last Infusion: 12/30/24 14:30 Dose: 70 mls/hr Documented By: CAL Nutrition (Parenteral) (Parenteral Nutrition) 1,680 mls @ 70 mls/hr IV .Q24H [facility]AN[facility]; Protocol Stop: 12/31/24 20:59 Dexmedetomidine HCl (Precedex) 400 mcg in 100 mls @ 0 mls/hr IVCONT .Q0M [facility]AN[facility]; Protocol Last Titration: 12/30/24 15:09 Dose: 0 mcg/kg/hr, 0 mls/hr Documented By: CAL Propofol (Diprivan) 1,000 mg in 100 mls @ 0 mls/hr IVCONT .Q0M [facility]AN[facility]; Protocol Norepinephrine Bitartrate (Levophed) 8 mg in 250 mls @ 0 mls/hr IVCONT .Q0M [facility]AN[facility]; Protocol Ibuprofen (Ibuprofen 800 Mg Tablet) 800 mg PO Q8H [facility] Last Admin: 12/30/24 11:00 Dose: Not Given Documented By: MINE Non-Admin Reason: NPO Insulin Glargine (Insulin Glargine,Hum.Rec.Anlog 100 Unit/Ml 10 Ml Vial) 35 unit SUBCUT BEDTIME [facility] Last Admin: 12/29/24 21:08 Dose: 35 unit Documented By: TANI Insulin Human Lispro (Insulin Lispro 100 Unit/Ml 3 Ml Vial) 0 unit SUBCUT Q6H [facility]; Protocol Last Admin: 12/30/24 10:59 Dose: 4 unit Documented By: MINE Insulin Human Lispro (Insulin Lispro 100 Unit/Ml 3 Ml Vial) 12 unit SUBCUT Q6H [facility] Stop: 12/31/24 10:14 Last Admin: 12/30/24 11:00 Dose: Not Given Documented By: MINE Non-Admin Reason: Physician Held Med Levothyroxine Sodium (Levothyroxine Sodium 100 Mcg/5 Ml Vial) 25 mcg IVPUSH DAILY@0600 [facility] Last Admin: 12/30/24 03:31 Dose: Not Given Documented By: TANI Non-Admin Reason: npo Metoprolol Tartrate (Metoprolol Tartrate 5 Mg/5 Ml Vial) 2.5 mg IVPUSH Q4H [facility]; Protocol Last Admin: 12/30/24 16:32 Dose: Not Given Documented By: CAL Non-Admin Reason: NPO Midazolam HCl (Midazolam Hcl 2 Mg/2 Ml Vial) 4 mg IVPUSH ONCE ONE Stop: 12/30/24 16:38 Pharmacy Consult (Consult Rx Parenteral Nutrition Ordering) 1 each MISCELLANE DAILY PRN PRN Reason: Consult order Quetiapine Fumarate (Quetiapine Fumarate 400 Mg Tablet) 400 mg PO BEDTIME [facility] Last Admin: 12/29/24 23:02 Dose: Not Given Documented By: TANI Non-Admin Reason: NPO Risperidone (Risperidone 2 Mg Tablet) 2 mg PO BEDTIME [facility] Last Admin: 12/29/24 23:02 Dose: Not Given Documented By: TANI Non-Admin Reason: NPO Risperidone (Risperidone 1 Mg Tablet) 1 mg PO DAILY [facility] Last Admin: 12/30/24 10:54 Dose: Not Given Documented By: MINE Non-Admin Reason: NPO Sodium Chloride (0.9 % Sodium Chloride Flush 3 Ml Syringe) 3 ml IVFLUSH QSHIFT [facility] Last Admin: 12/30/24 07:58 Dose: 3 ml Documented By: MINE Succinylcholine Chloride (Succinylcholine Chloride 200 Mg/10 Ml Vial) 100 mg IVPUSH ONCE ONE Stop: 12/30/24 16:38 Labs 12/28/24 05:42 10/20/25 06:41 Labs: Laboratory Results - last 24 hr 12/29/24 12/29/24 12/30/24 21:01 23:53 03:06 Anion Gap Estim Creat Clear Calc Estimated GFR POC Glucose 270 H 272 H 327 H Random Glucose Calcium Phosphorus Magnesium Total Bilirubin AST ALT Alkaline Phosphatase Total Protein Albumin 12/30/24 12/30/24 12/30/24 06:41 06:42 10:43 Anion Gap 17 Estim Creat Clear Calc 53.0 Estimated GFR 54 POC Glucose 191 H 222 H Random Glucose 204 H Calcium 9.4 Phosphorus 3.8 Magnesium 2.3 Total Bilirubin 0.4 AST 21 ALT 20 Alkaline Phosphatase 148 H Total Protein 5.9 L Albumin 3.2 L 12/30/24 12:12 Anion Gap Estim Creat Clear Calc Estimated GFR POC Glucose 157 H Random Glucose Calcium Phosphorus Magnesium Total Bilirubin AST ALT Alkaline Phosphatase Total Protein Albumin Assessment and Plan (1) Schizoaffective disorder: Status: Acute (2) Severe sepsis: Status: Acute (3) Acute respiratory failure with hypoxia: Status: Acute (4) ARDS (adult respiratory distress syndrome): Status: Acute Plan Assessment: 59-year-old lady with underlying COPD, hypothyroidism, schizoaffective disorder admitted on 12/17/2024 with encephalopathy and acute hypoxic respiratory failure, started empirically on broad-spectrum IV antibiotics as well as IV fluid resuscitation for sepsis and worsening hypoxemia. TTE showed large pericardial effusion, requiring pericardial drain placement w/ removal on 12/19. Patient required intubation on 12/22 and later extubated on 12/24. Downgraded on 12/25. [employer] called, due to worsening hypoxia. patient upgraded to ICU Impression Toxic metabolic encephalopathy, likely multifactorial in the setting of sepsis, electrolyte abnormalities, acute hypoxic respiratory failure. Severe Sepsis Acute hypoxic respiratory failure, suspect multifactorial setting of ILD/ARDS and sepsis COPD -we will continue with cefepime and Flagyl -s/p stress dose steroids -continue with supplemental oxygen and titrate for SpO2 greater than 90% -continue per ICU care team Hypernatremia, Hyperchloremia Metabolic acidosis TPN changed Will monitor labs Nephrology consulted and following Pericardial effusion status post pericardial drain with removal -we will continue with empiric colchicine for inflammatory pericarditis Immunostain workup pending Cardiology following Schizoaffective disorder -continue with risperidone and quetiapine Hypothyroidism -continue with levothyroxine 25 mcg q.d. Hyperglycemia -insulins glargine and regular adjusted. continue w/ ISS. will adjust medications accordingly based on patiens ISS, yesterday requiring 53 units of ISS DVT PPx: Lovenox Disposition: patient with guarded prognosis Quality Stroke Does the patient have a stroke diagnosis?: No VTE Prior VTE?: No VTE Risk Level:: Medical - moderate - high VTE Device Contraindication: N/A - Device Ordered VTE Drug Contraindication: N/A - Med Ordered
--- NOTE | 2024-12-30 17:00 | P.CONCC_ITS ---
History of Present Illness Data of Consult Service Date: 12/30/24 Primary Care Provider: Caleb Mckeon DO HPI Reason for consult: Hypoxia 59-year-old lady Jennifer Ronquillo with complex psych and medical history admitted to the hospital on 12/17/2024 due to altered sensorium and hypoxia. Since she had worsening respiratory failure she was transferred to ICU and was intubated between 12/21/2024 till 12/25/2024, eventually she was extubated and transferred to floor. Her respiratory status continued to worsen even at the floor, needing 100% FiO2 on a high-flow oxygen along with a non-rebreather and multiple rapid responses called over the past 2 days due to episodes of hypoxia. She had a CT angiogram chest done on 12/26/2024 which showed severe bilateral lung infiltrates possibly suggestive of interstitial lung disease versus pulmonary fibrosis. She tested negative for flu and COVID, her sputum culture was also negative. So eventually she is transferred back to medical ICU. During her hospitalization she also had a large pericardial effusion for which a pericardial window was placed. She is on empiric colchicine for possible inflammatory pericarditis, cardiology following. She has diffuse vitiligo spots all over her body. Her PMH is significant for chronic obstructive lung disease, hyperlipidemia, hypothyroidism, OCD, PTSD, schizoaffective disorder. Review of Systems 2 Review of Systems: Unable to obtain as patient is confused PMFSH Past Medical History Medical History (Updated 12/30/24 @ 17:09 by Foster Roque MD) COPD (chronic obstructive pulmonary disease) Anxiety Hypothyroidism HLD (hyperlipidemia) UTI (urinary tract infection) PTSD (post-traumatic stress disorder) Diabetes Schizoaffective disorder Social History Social History (Updated 12/17/24 @ 08:26 by Tia Blake DO) Household Members: None Housing: Apartment Do you presently have visiting nurse or other home services: Yes Comment: pt mcpherson a sitter Patient Tobacco Use Status: Current everyday Tobacco user Tobacco use type: Cigarette service: No Meds Allergies Allergy/AdvReac Type Severity Reaction Status Date / Time celecoxib Allergy Unknown Verified 12/17/24 08:10 fish derived (fish) Allergy Unknown Verified 12/17/24 08:10 gabapentin Allergy Unknown Verified 12/17/24 08:10 guanfacine Allergy Unknown Verified 12/17/24 08:10 ibuprofen Allergy Unknown Verified 12/17/24 08:10 olanzapine Allergy Unknown Verified 12/17/24 08:10 Penicillins Allergy Unknown Verified 12/17/24 08:10 prazosin Allergy Unknown Verified 12/17/24 08:10 Active Medications: Current Medications Acetaminophen (Acetaminophen 325 Mg Tablet) 650 mg PO Q4H PRN PRN Reason: Fever >101 Last Admin: 12/23/24 18:23 Dose: 650 mg Chlorhexidine Gluconate (Chlorhexidine Gluc Oral Rinse 15 Ml Mouthwash) 15 ml BUCCAL TID HEMANTH Last Admin: 12/30/24 10:54 Dose: Not Given Colchicine (Colchicine 0.6 Mg Tablet) 0.6 mg PO DAILY HEMANTH Last Admin: 12/30/24 10:54 Dose: Not Given Dextrose (Dextrose 50 % 25 Gm/50 Ml Syringe) 25 gm IVPUSH Q15M PRN; Protocol PRN Reason: per Hypoglycemia Standing Ord. Enoxaparin Sodium (Enoxaparin Sodium 40 Mg/0.4 Ml Syringe) 40 mg SUBCUT Q24H HEMANTH Last Admin: 12/30/24 12:44 Dose: 40 mg Glucose (Glucose Gel 15 Gm Gel..Gram.) 15 gm PO Q15M PRN; Protocol PRN Reason: per Hypoglycemia Standing Ord. Hydromorphone HCl (Hydromorphone Hcl 0.5 Mg/0.5 Ml Syringe) 0.5 mg IVPUSH Q3H PRN; Protocol PRN Reason: Work of breathing Last Admin: 12/30/24 08:11 Dose: 0.5 mg Cefepime HCl (Maxipime) 2 gm in 50 mls @ 100 mls/hr IV Q12H [facility] Last Infusion: 12/30/24 16:20 Dose: Infused Metronidazole (Flagyl) 500 mg in 100 mls @ 100 mls/hr IV Q8H [facility]EMANTH Last Infusion: 12/30/24 12:44 Dose: Infused Nutrition (Parenteral) (Parenteral Nutrition) 1,680 mls @ 70 mls/hr IV .Q24H HEMANTH; Protocol Stop: 12/30/24 20:59 Last Infusion: 12/30/24 14:30 Dose: 70 mls/hr Nutrition (Parenteral) (Parenteral Nutrition) 1,680 mls @ 70 mls/hr IV .Q24H HEMANTH; Protocol Stop: 12/31/24 20:59 Dexmedetomidine HCl (Precedex) 400 mcg in 100 mls @ 0 mls/hr IVCONT .Q0M HEMANTH; Protocol Last Titration: 12/30/24 15:09 Dose: 0 mcg/kg/hr, 0 mls/hr Propofol (Diprivan) 1,000 mg in 100 mls @ 0 mls/hr IVCONT .Q0M HEMANTH; Protocol Norepinephrine Bitartrate (Levophed) 8 mg in 250 mls @ 0 mls/hr IVCONT .Q0M HEMANTH; Protocol Ibuprofen (Ibuprofen 800 Mg Tablet) 800 mg PO Q8H [facility] Last Admin: 12/30/24 11:00 Dose: Not Given Insulin Glargine (Insulin Glargine,Hum.Rec.Anlog 100 Unit/Ml 10 Ml Vial) 35 unit SUBCUT BEDTIME [facility] Last Admin: 12/29/24 21:08 Dose: 35 unit Insulin Human Lispro (Insulin Lispro 100 Unit/Ml 3 Ml Vial) 0 unit SUBCUT Q6H HEMANTH; Protocol Last Admin: 12/30/24 10:59 Dose: 4 unit Insulin Human Lispro (Insulin Lispro 100 Unit/Ml 3 Ml Vial) 12 unit SUBCUT Q6H [facility] Stop: 12/31/24 10:14 Last Admin: 12/30/24 11:00 Dose: Not Given Levothyroxine Sodium (Levothyroxine Sodium 100 Mcg/5 Ml Vial) 25 mcg IVPUSH DAILY@0600 [facility] Last Admin: 12/30/24 03:31 Dose: Not Given Metoprolol Tartrate (Metoprolol Tartrate 5 Mg/5 Ml Vial) 2.5 mg IVPUSH Q4H HEMANTH; Protocol Last Admin: 12/30/24 16:32 Dose: Not Given Midazolam HCl (Midazolam Hcl 2 Mg/2 Ml Vial) 4 mg IVPUSH ONCE ONE Stop: 12/30/24 16:38 Pharmacy Consult (Consult Rx Parenteral Nutrition Ordering) 1 each MISCELLANE DAILY PRN PRN Reason: Consult order Quetiapine Fumarate (Quetiapine Fumarate 400 Mg Tablet) 400 mg PO BEDTIME [facility] Last Admin: 12/29/24 23:02 Dose: Not Given Risperidone (Risperidone 2 Mg Tablet) 2 mg PO BEDTIME [facility] Last Admin: 12/29/24 23:02 Dose: Not Given Risperidone (Risperidone 1 Mg Tablet) 1 mg PO DAILY [facility] Last Admin: 12/30/24 10:54 Dose: Not Given Sodium Chloride (0.9 % Sodium Chloride Flush 3 Ml Syringe) 3 ml IVFLUSH QSHIFT HEMANTH Last Admin: 12/30/24 07:58 Dose: 3 ml Succinylcholine Chloride (Succinylcholine Chloride 200 Mg/10 Ml Vial) 100 mg IVPUSH ONCE ONE Stop: 12/30/24 16:38 Home Medications ?Medication ?Instructions ?Recorded ?Confirmed ?Last Taken ?Type acetaminophen 325 mg tablet 650 mg PO Q6H PRN Fever/Pa in 12/17/24 12/17/24 Unknown History albuterol sulfate 90 mcg/actuation 1 puff inhalation Q 4H PRN 12/17/24 12/17/24 Unknown History aerosol inhaler Shortness Of Breath Or Wheez ing ascorbic acid (vitamin C) 500 mg 500 mg PO DAILY 12/1712/17/24 Unknown History tablet benzocaine 15 mg-menthol 3.6 mg 1 kemi mucous membrane Q2H PRN Sore 12/17/24 12/17/24 Unknown History lozenges (Cepacol Sore Throat Throat (benzocaine-menthol)) calcium carbonate (Tums E-X) 600 mg PO Q4H PRN Acid Re flux 12/17/24 12/17/24 Unknown History cholecalciferol (vitamin D3) 25 25 mcg PO DAILY 12/17/24 Unknown History mcg (1,000 unit) tablet (Vitamin D3) cyclobenzaprine 10 mg tablet 10 mg PO DAILY PRN Sciati ca 12/17/24 12/17/24 Unknown History diphenhydramine HCl 25 mg tablet 25 mg PO Q8H PRN German rgy Symptoms 12/17/24 12/17/24 Unknown History (Benadryl Allergy) ferrous sulfate 325 mg (65 mg 325 mg PO DAILY 12/17/24 12/17/24 Unknown History iron) tablet fluticasone 250 mcg-salmeterol 50 1 inh inhalation BID 12/17/24 12/17/24 Unknown History mcg/dose blistr powdr for inhalation (Advair Diskus) fluticasone furoate 100 1 inh inhalation DAILY 12/1712/17/24 Unknown History mcg-vilanterol 25 mcg/dose inhalation powder (Breo Ellipta) glucagon HCl 1 mg solution for 1 mg subcut Q15M PRN Hy poglycemia 12/17/24 12/17/24 Unknown History injection (Glucagon (HCl) Emergency Kit) hydroxyzine HCl 25 mg tablet 25 mg PO DAILY 12/17/24 1 Unknown History hydroxyzine HCl 50 mg tablet 50 mg PO DAILY 12/17/24 1 Unknown History hydroxyzine HCl 50 mg tablet 100 mg PO BID 12/17/24 Unknown History insulin lispro 100 unit/mL See Protocol subcut TUTHSA 12/17/24 12/17/24 Unknown History subcutaneous solution (Humalog U-100 Insulin) levothyroxine 50 mcg tablet 50 mcg PO DAILY@0600 12/1712/17/24 Unknown History lidocaine 4 % topical patch 1 patch topical DAILY 10/0412/17/24 Unknown History lidocaine HCl 2 % mucosal solution 15 ml mucous membra ne Q6H PRN Gum 12/17/24 12/17/24 Unknown History (Lidocaine Viscous) Pain/Oral Ulcers loperamide 2 mg tablet 2 mg PO DAILY PRN Loose Stoo l 12/17/24 12/17/24 Unknown History loratadine 10 mg tablet 10 mg PO DAILY PRN Post Nasa l Drip 12/17/24 12/17/24 Unknown History melatonin 1 mg tablet 1 mg PO BEDTIME 12/17/2410/04 Unknown History melatonin 3 mg tablet 3 mg PO BEDTIME 12/17/2410/04 Unknown History metformin 1,000 mg tablet 1,000 mg PO BID 12/17/2410/04 Unknown History mirtazapine 15 mg tablet 7.5 mg PO BEDTIME 12/17/24 1 Unknown History naloxone 4 mg/actuation nasal 1 spray intranasal Q3M P RN Opioid 12/17/24 12/17/24 Unknown History spray (Narcan) Overdose nystatin 100,000 unit/gram topical 1 appl topical TID 12/17/24 12/17/24 Unknown History powder ondansetron HCl 4 mg tablet 4 mg PO Q6H PRN Nausea And Vomiting 12/17/24 12/17/24 Unknown History pantoprazole 40 mg tablet,delayed 40 mg PO DAILY@0630 12/17/24 12/17/24 Unknown History release polyethylene glycol 3350 17 17 g PO DAILY 12/17/2410/04 Unknown History gram/dose oral powder (Miralax) quetiapine 400 mg tablet (Seroquel) 400 mg PO BEDTIME 12/17/24 12/17/24 Unknown History risperidone 1 mg tablet 1 mg PO DAILY 12/17/2412/17 Unknown History risperidone 2 mg tablet (Risperdal) 2 mg PO BEDTIME 12/17/24 Unknown History ropinirole 0.25 mg tablet 0.25 mg PO DAILY 12/17/24 Unknown History rosuvastatin 10 mg tablet 10 mg PO BEDTIME 12/17/24 Unknown History sennosides 8.6 mg tablet (senna) 8.6 mg PO DAILY PRN C onstipation 12/17/24 12/17/24 Unknown History sitagliptin phosphate 50 mg tablet 50 mg PO DAILY 10/0412/17/24 Unknown History (Januvia) sodium phosphates 19 gram-7 118 ml [place] DAILY PRN Consti pation 12/17/24 12/17/24 Unknown History gram/118 mL enema (Fleet Enema) tramadol 50 mg tablet 50 mg PO TID 12/17/24 Unknown History trazodone 100 mg tablet 100 mg PO BEDTIME 12/17/24 1 Unknown History triamcinolone acetonide 55 mcg 2 spray intranasal MERVAT Y 12/17/24 12/17/24 Unknown History nasal spray aerosol (Nasacort) Physical Exam 2 Vital Signs: Vital Signs: Last Vital Signs Temp 97.8 F 12/30/24 07:42 Pulse 79 12/30/24 17:00 Resp 30 H 12/30/24 17:00 BP 102/56 L 12/30/24 17:00 Pulse Ox 98 12/30/24 17:00 O2 Del Method Mechanical Ventil ation 12/30/24 17:00 O2 Flow Rate 50 12/30/24 16:00 FiO2 100 12/30/24 17:00 Oxygen Flow Rate 60 12/29/24 16:29 BMI result Body Mass Index 26.6 General: Patient is severe acute distress, chronically ill appearing and tired appearing Nutritional Appearance: well nourished and overweight Eyes: appearance normal, both eyes and all related structures; Alignment and Position: alignment normal and position normal Neck: No lymphadenopathy, no thyromegaly Resp: bilateral air entry equal, bilateral crackles heard, very dyspneic Cardio: Regular rate, regular rhythm; Heart sounds: S1 normal heart sound present and S2 normal heart sound present GI: soft, nontender, no guarding, no hepatosplenomegaly : bladder normal to inspection, bladder normal to palpation, no renal angle tenderness Skin: no rashes or lesions noted and elasticity normal Neuro: Confused, not following any commands Results Labs 12/28/24 05:42 12/30/24 06:41 Labs: BMP 12/30/24 06:41 Sodium 152 H Potassium 4.1 Chloride 120 H Carbon Dioxide 19 L BUN 53 H Creatinine 1.03 Calcium 9.4 Liver Function 12/30/24 Range/Units 06:41 Total Bilirubin 0.4 (0.0-1.0) mg/dL AST 21 (5-31) U/L ALT 20 (0-31) U/L Alkaline Phosphatase 148 H (39-117) U/L Albumin 3.2 L (3.5-5.0) g/dL Microbiology Microbiology Results: Microbiology 12/22/24 20:59 Blood - Venous Blood Culture - Final No growth after 5 days. 12/22/24 02:49 Blood - Venous Blood Culture - Final No growth after 5 days. 12/22/24 02:49 Blood - Venous Blood Culture - Final No growth after 5 days. 12/19/24 18:25 Pericardial Fluid Gram Stain - Final 12/19/24 18:25 Pericardial Fluid Anaerobic Culture - Final NO GROWTH AFTER 5 DAYS 12/19/24 18:25 Pericardial Fluid Body Fluid Culture - Final No growth after 2 days 12/17/24 08:52 Blood - Venous Blood Culture - Final No growth after 5 days. 12/17/24 08:42 Blood - Venous Blood Culture - Final No growth after 5 days. Assessment and Plan (1) Schizoaffective disorder: Status: Acute (2) Acute encephalopathy: Status: Acute (3) Cardiogenic shock: Status: Acute (4) Acute respiratory failure with hypoxia: Status: Acute (5) COPD (chronic obstructive pulmonary disease): Status: Acute (6) ARDS (adult respiratory distress syndrome): Status: Acute Plan Neuro: Acute encephalopathy possibly due to metabolic encephalopathy Head CT scan upon admission negative for any intracranial pathology, chronic frontal lobe atrophy seen Has significant schizoaffective disorder and other psych issues at baseline. Continue quetiapine 400 mg at nighttime, risperidone 2 mg in P.m. and 1 mg at a.m. On propofol for sedation, as needed fentanyl for analgesia Close neurological status monitoring in the ICU every hour Cardiac: Cardiogenic Shock: Possibly secondary to positive pressure ventilation On Levophed support, titrate Levophed to keep map above 65 mm Hg Respiratory: Acute hypoxemic respiratory failure due to interstitial lung disease versus pulmonary fibrosis Had to intubate her due to excessive dyspnea and episodes of hypoxia On PRVC mode FiO2 100%, PEEP 5, TV 400, RR 20 Peak pressures and plateau pressures are under the curve Ventilator management bundle with head end elevation, aspiration precaution, chlorhexidine mouthwash, daily awakening trials, daily spontaneous breathing trials She received high-dose Solu-Medrol 250 mg TID for 3 days without much response in her respiratory efforts. We will keep her on a small dose steroids 40 mg BID GI: On PPN We will start her on tube feeds tomorrow Renal: Renal function stable We will closely monitor I's and O's Avoid nephrotoxic medications Hypernatremia: Asked pharmacy to adjust her sodium in the TPN Heme: Chronic anemia, closely monitor H&H, transfuse for hemoglobin less than 7 grams/deciliter Endocrine: Hypothyroidism: Continue levothyroxine Blood sugars under control Sliding scale insulin as needed Infectious disease: We will send pancultures On empiric cefepime and Flagyl Musculoskeletal: Decubitus ulcer prevention protocol Lines: Peripheral Prophylaxis: Lovenox, pantoprazole This patient has been admitted to the hospital 14 days ago secondary to ARDS requiring significant oxygen support, intubated and extubated once but postextubation she did not do well requiring very high oxygen demand, 100% FiO2 despite which she had frequent rapid responses for hypoxia. She had to be reintubated again today because severe dyspnea and episodes of hypoxia. Given that she has been hospitalized for so many days with no improvement in her oxygenation but further worsening in her dyspnea needing re-intubation her prognosis is going to be very poor. On top of this she has significant underlying multiple psych issues living in a shelter which complicates her situation and makes her a very poor candidate for tracheostomy if and when needed. It is less likely that this patient will have a very positive outcome from this hospitalization, we will ask the guardian for change of code status to DNI/DNR. total critial care time spent is about 60 minutes on managing this patient's dyspnea, intubation, post intubation care, stabilizing ventilator support, sedation management, vasopressor management, close hemodynamic monitoring at this time is excluding procedural time
[2024-12-30 17:08] LABS: ABG HCO3 24 mmol/L (22-26); ABG O2 % Saturation 94.0 %
--- NOTE | 2024-12-30 17:38 | PC.RT ---
Pt control intubated in the ICU due to hypoxia, maxed out on HFNC and NRB 15L. During intubation, pt had hard, thick, yellow secretions in her airway, pulled out by MD with forceps. Pt intubated with 7.5 ETT 20cm @ lips. ETT confirmed with colormetric CO2, condensation in tube, bilateral chest sounds, and X-Ray. Pt placed on mechanical ventilation as documented and ABG drawn.
[2024-12-30 17:57] LABS: Glucose, Whole Blood 226 mg/dL (60-115)
[2024-12-30] MEDS: Chlorhexidine Gluc Oral Rinse 15 ML MOUTHWASH BUCCAL ×2 (18:38→21:33)
--- NOTE | 2024-12-30 18:58 | PC.NURSE ---
MISSILE FACILITIES REPAIRER called for patient approx 11:30AM. Patient agonal breathing, pale, accessory muscle use. RN reported increased heart rate. SBP 140s. Patient is on High Flow Nasal Cannula 55L 100%. 15L Nonrebreather added over HFNC by RT. SaO2 improved to 95%. Hospitalist at bedside. Plan to ask ICU MD consult to bedside. Patient is Full Code with a legal guardian. Plan to transfer patient to ICU. Patient arrived to ICU approx 12:00. Patient repositoned in high fowlers, 2 new ultrasound peripheral IV sites established. MD reviewed patient chart and at 15:30 planned for intubation. Patient given 4mg versed IVP and 100 mg Succinylcholine IVP, see MAR. MD visualized large pieces of dried sputum, removed pieces from airway with forceps. Patient intubated 16:01. ET tube 7.0, 20 @ lip, positive colorimetry. Proprofol gtt started per protocol for sedation and vent synchrony. OG tube placed and CXR obtained to confirm placement of ETT and OG tube. 16:10 RT deep suctioned patient. Small amount thick cream secretions. ABGs obtained approx one hour after intubation. See vent assessment for ventillator settings. Patient provided bed bath, turned and repositoned Q2HRs, high fall precautions in place.
[2024-12-30] MEDS: fentaNYL citrate/NS 1,000 MCG/100 ML PLAST..BAG 5 MCG IVCONT (19:50)
[2024-12-30 19:56] LABS: Venous Blood Gas Refer to POC result
[2024-12-30 19:57] LABS: VBG HCO3 24 mmol/L (22-26); VBG O2 % Saturation 99.0 %
[2024-12-30 20:07] LABS: Hematocrit 32.2 % (37.0-47.0); Hemoglobin 11.2 g/dl (12.0-16.0); Imm Gran Abs Auto 0.31 X10*3/uL (0.00-0.03); Imm Gran Pct Auto 1.7 % (0.0-0.4); Lymphocytes Absolute Auto 1.0 X10*3/uL (1.2-4.9); MANUAL DIFF FLAG SCAN; Mean Corpuscular HGB Conc 34.8 g/dl (31.0-35.0); Mean Corpuscular Hemoglobin 24.5 pg (27.0-33.0); Mean Corpuscular Volume 70.3 fL (80.0-98.0); NRBC Abs Auto 0.120 X10*3/uL (0.0-0.012); NRBC Pct Auto 0.7 /100WBC (0.0-0.2); PLT CLUMP 1; Red Blood Count 4.58 X10*6/uL (4.20-5.50); SCAN SMEAR FLAG 1
[2024-12-30 20:13] LABS: White Blood Count 18.0 X10*3/uL (4.8-10.8)
[2024-12-30 21:31] LABS: Anion Gap 16 (12-20); Blood Urea Nitrogen 53 mg/dL (9-16); Calcium 9.1 mg/dL (8.4-10.2); Carbon Dioxide 22 mmol/L (22-29); Chloride 118 mmol/L (96-108); Creatinine Clr Calc Pharmacy 50.6; Estimated Glomerular Filt Rate 52; Magnesium 2.2 mg/dL (1.6-2.6); Potassium 4.7 mmol/L (3.3-5.1); Sodium 151 mmol/L (135-145)
[2024-12-30 21:48] LABS: NT Pro B Type Natriuretic Pept 679.8 pg/mL (<300); Troponin-I High Sensitivity 32.3 ng/L (<3.5-17.0)
[2024-12-30 21:50] LABS: Reflex Lactate? Lactic Acid Added
[2024-12-30] MEDS: Parenteral Nutrition 1,680 ML 70 ML IV (22:31)
[2024-12-30] MEDS: dexmedeTOMIDine HCL/NS 400 MCG/100 ML PLAST..BAG 6.8 MCG IVCONT (22:49)
--- NOTE | 2024-12-30 22:59 | PM.EVENT ---
Documented by User: Sarah Hamilton NP 12/30/24 23:03 Event Note Date of Service: 12/30/24 Event Note: Lactic acid elavated, but no evidence of septic shock at this time. Hypotension related to sedation/ cardiogenic shock Time Spent With Patient Time: Total time managing care of this patient today ____ minutes. Documented by User: Mike Smith MD 12/31/24 10:26 Event Note Date of Service: 12/31/24
[2024-12-30 23:11] LABS: ~Lactic Acid-LAB USE ONLY 2.7 mmol/L (0.5-2.0)
[2024-12-30 23:26] LABS: Glucose, Whole Blood 300 mg/dL (60-115)
[2024-12-30] MEDS: Insulin Glargine,Hum.rec.anlog 100 UNIT/ML 10 ML VIAL 30 UNIT SUBCUT (23:28)
[2024-12-31] VITALS (57 sets, daily range): BP systolic 66–165; BP diastolic 35–88; PULSE 8–134; RESP 17–90; TEMP 35–38.5; O2SAT 89–97; BMI 24.2
[2024-12-31] MEDS: 0.9 % Sodium Chloride Flush 3 ML SYRINGE IVFLUSH ×4 (00:21→23:27)
[2024-12-31 00:28] LABS: Reflex Lactate? 2 Y
[2024-12-31] MEDS: cefEPime HCl/D5W 2 GM/50 ML PIGGYBACK IV ×2 (00:55→15:08)
[2024-12-31] MEDS: metroNIDAZOLE/NS 500 MG/100 ML PIGGYBACK 100 MG IV (01:01)
[2024-12-31 01:43] LABS: Albumin Level 2.9 g/dL (3.5-5.0); Anion Gap 17 (12-20); Blood Urea Nitrogen 55 mg/dL (9-16); Calcium 9.1 mg/dL (8.4-10.2); Carbon Dioxide 18 mmol/L (22-29); Chloride 117 mmol/L (96-108); Creatinine Clr Calc Pharmacy 48.8; Estimated Glomerular Filt Rate 49; Magnesium 2.2 mg/dL (1.6-2.6); Potassium 4.7 mmol/L (3.3-5.1); Sodium 147 mmol/L (135-145)
[2024-12-31 01:53] LABS: ~Lactic Acid-LAB USE ONLY 2.8 mmol/L (0.5-2.0)
[2024-12-31] MEDS: Albumin Human 25 % 100 ML 133.33 ML IV ×3 (01:53→23:10)
[2024-12-31 03:35] LABS: Glucose, Whole Blood 316 mg/dL (60-115)
[2024-12-31] MEDS: Insulin Regular/NS 100 UNIT/100 ML PLAST..BAG IVCONT (03:49)
[2024-12-31] MEDS: fentaNYL citrate/NS 1,000 MCG/100 ML PLAST..BAG 10 MCG IVCONT (03:52)
[2024-12-31 05:06] LABS: Glucose, Whole Blood 302 mg/dL (60-115)
[2024-12-31 05:36] LABS: VBG HCO3 21 mmol/L (22-26); VBG O2 % Saturation 91.0 %
[2024-12-31 06:03] LABS: Glucose, Whole Blood 276 mg/dL (60-115)
[2024-12-31 06:26] LABS: Venous Blood Gas Refer to POC result
[2024-12-31 06:29] LABS: Alanine Aminotransferase 12 U/L (0-31); Albumin Level 4.0 g/dL (3.5-5.0); Alkaline Phosphatase 89 U/L (39-117); Anion Gap 16 (12-20); Aspartate Amino Transferase 16 U/L (5-31); Blood Urea Nitrogen 48 mg/dL (9-16); Calcium 9.3 mg/dL (8.4-10.2); Carbon Dioxide 18 mmol/L (22-29); Chloride 119 mmol/L (96-108); Creatinine Clr Calc Pharmacy 45.6; Estimated Glomerular Filt Rate 52; Magnesium 2.3 mg/dL (1.6-2.6); Potassium 4.1 mmol/L (3.3-5.1); Sodium 149 mmol/L (135-145); Total Protein 6.5 g/dL (6.5-8.0)
[2024-12-31 06:34] LABS: NT Pro B Type Natriuretic Pept 591.5 pg/mL (<300)
--- NOTE | 2024-12-31 06:35 | PC.NURSE ---
0600 Shift Summary: Pt found to have cardiac rub present on assessment. EKG obtained and Sarah Hamilton CORE MOUNTER reviewed and assessed the patient. Patient remains intubated and sedated, unable to communicate.? RR elevated beginning of shift 38-40 b/min, with vent dyssynchrony, Fentanyl drip initiated with improvement of RR 22B/min and vent synchrony?along? with titration of FiO2 to maintain O2 sats?>88% per CORE MOUNTER order.? Patient oral suctioned?for a moderate amount of thick morris secretions.? Patient with a fever overnight managed with Tylenol and Motrin as prescribed, Precedex stopped . Versed IVP provided to assist with maintaining?vent synchrony?w/ continuous Propofol drip infusion. On telemetry the patient had 2 episodes of nonsustained RVR CORE MOUNTER reviewed and 2.5mg Metoprolol IV?provided?as documented.? ?Levophed titrated as documented and 2 bags Albumin given as Albumin?level 2.9 to support BP & urinary output as patient producing 30cc/hour of urine via wood cath. Labs drawn throughout?the night and reviewed by CORE MOUNTER. PPN decreased to 50mL/hr as POC greater than 300, non-DKA Insulin drip ordered & infusing per protocol. Care is ongoing and am labs are pending.
[2024-12-31 06:39] LABS: Hematocrit 25.9 % (37.0-47.0); Hemoglobin 8.9 g/dl (12.0-16.0); Imm Gran Abs Auto 0.36 X10*3/uL (0.00-0.03); Imm Gran Pct Auto 2.6 % (0.0-0.4); Lymphocytes Absolute Auto 1.5 X10*3/uL (1.2-4.9); MANUAL DIFF FLAG SCAN; Mean Corpuscular HGB Conc 34.4 g/dl (31.0-35.0); Mean Corpuscular Hemoglobin 24.5 pg (27.0-33.0); Mean Corpuscular Volume 71.2 fL (80.0-98.0); NRBC Abs Auto 0.180 X10*3/uL (0.0-0.012); PLT CLUMP 1; Red Blood Count 3.64 X10*6/uL (4.20-5.50); SCAN SMEAR FLAG 1
[2024-12-31 06:40] LABS: NRBC Pct Auto 1.3 /100WBC (0.0-0.2)
[2024-12-31 06:57] LABS: Platelet Count 269 X10*3/uL (160-400); White Blood Count 13.8 X10*3/uL (4.8-10.8)
[2024-12-31 07:23] LABS: Glucose, Whole Blood 242 mg/dL (60-115)
[2024-12-31] MEDS: Chlorhexidine Gluc Oral Rinse 15 ML MOUTHWASH BUCCAL ×3 (07:53→20:08)
--- NOTE | 2024-12-31 08:33 | P.PNCC_ITS ---
Subjective Subjective Date of Service: 12/31/24 Interval History: No new events overnight continues to be on ventilator support Critical Care Time (minutes): 35 Physical Exam 2 Vital Signs: Vital Signs: Last Vital Signs Temp 98.1 F 12/31/24 08:00 Pulse 77 12/31/24 08:05 Resp 19 12/31/24 08:00 BP 134/74 12/31/24 08:05 Pulse Ox 93 12/31/24 08:00 O2 Del Method Mechanical Ventil ation 12/31/24 08:00 O2 Flow Rate 50 12/30/24 16:00 FiO2 60 12/31/24 08:00 Oxygen Flow Rate 60 12/30/24 11:13 BMI result Body Mass Index 24.2 General: Elderly appearing lady in severe acute distress, she is also chronically ill appearing and tired appearing Nutritional Appearance: undernourished and underweight Eyes: appearance normal, both eyes and all related structures; Alignment and Position: alignment normal and position normal Neck: No lymphadenopathy, no thyromegaly Resp: bilateral air entry equal, bilateral crackles heard Cardio: Regular rate, regular rhythm; Heart sounds: S1 normal heart sound present and S2 normal heart sound present GI: soft, nontender, no guarding, no hepatosplenomegaly : bladder normal to inspection, bladder normal to palpation, no renal angle tenderness Skin: no rashes or lesions noted and elasticity normal Neuro: sedated, no focal defecits Objective Data Labs 12/31/24 05:23 12/31/24 05:23 Labs: Laboratory Results - last 24 hr 12/30/24 12/30/24 12/30/24 10:43 12:12 17:03 WBC RBC Hgb Hct MCV MCH MCHC RDW Plt Count MPV Immature Gran % (Auto) Neut % (Auto) Lymph % (Auto) [place] % (Auto) Eos % (Auto) Baso % (Auto) Lymph # (Auto) [place] # (Auto) Eos # (Auto) Baso # (Auto) Abs Immat Gran (auto) Absolute Neuts (auto) Absolute Nucleated RBC Nucleated RBC % (auto) Smear Tech's Comments O2 Saturation 94.0 ABG pH at Pt Temp 7.46 H ABG pCO2 at Pt Temp 34 ABG pO2 at Pt Temp 76 L ABG HCO3 24 ABG Base Excess (Actual) 1.4 VBG pH VBG pCO2 VBG pO2 VBG HCO3 VBG O2 Saturation VBG Base Excess Sodium Potassium Chloride Carbon Dioxide Anion Gap BUN Creatinine Estim Creat Clear Calc Estimated GFR POC Glucose 222 H 157 H Random Glucose Lactic Acid Lactic Acid F/U @ 2Hr Lactic Acid F/U @ 4Hr Calcium Phosphorus Magnesium Total Bilirubin AST ALT Alkaline Phosphatase Ammonia Troponin I High Sens NT-Pro-B Natriuret Pep Total Protein Albumin 12/30/24 12/30/24 12/30/24 17:54 19:45 19:47 WBC 18.0 H RBC 4.58 Hgb 11.2 L Hct 32.2 L MCV 70.3 L MCH 24.5 L MCHC 34.8 RDW 16.6 H Plt Count TNP MPV Not Reportable Immature Gran % (Auto) 1.7 H Neut % (Auto) 87.3 H Lymph % (Auto) 5.6 L [place] % (Auto) 5.1 Eos % (Auto) 0.1 Baso % (Auto) 0.2 Lymph # (Auto) 1.0 L [place] # (Auto) 0.9 Eos # (Auto) 0.0 Baso # (Auto) 0.0 Abs Immat Gran (auto) 0.31 H Absolute Neuts (auto) 15.6 H Absolute Nucleated RBC 0.120 H Nucleated RBC % (auto) 0.7 H Smear Tech's Comments VERIFIED O2 Saturation ABG pH at Pt Temp ABG pCO2 at Pt Temp ABG pO2 at Pt Temp ABG HCO3 ABG Base Excess (Actual) VBG pH VBG pCO2 VBG pO2 VBG HCO3 VBG O2 Saturation VBG Base Excess Sodium 151 H Potassium 4.7 Chloride 118 H Carbon Dioxide 22 Anion Gap 16 BUN 53 H Creatinine 1.08 Estim Creat Clear Calc 50.6 Estimated GFR 52 POC Glucose 226 H Random Glucose 290 H Lactic Acid 2.6 H* Lactic Acid F/U @ 2Hr Lactic Acid F/U @ 4Hr Calcium 9.1 Phosphorus 3.2 Magnesium 2.2 Total Bilirubin AST ALT Alkaline Phosphatase Ammonia TNP Troponin I High Sens 32.3 H NT-Pro-B Natriuret Pep 679.8 H Total Protein Albumin 12/30/24 12/30/24 12/30/24 19:52 22:25 23:21 WBC RBC Hgb Hct MCV MCH MCHC RDW Plt Count MPV Immature Gran % (Auto) Neut % (Auto) Lymph % (Auto) [place] % (Auto) Eos % (Auto) Baso % (Auto) Lymph # (Auto) [place] # (Auto) Eos # (Auto) Baso # (Auto) Abs Immat Gran (auto) Absolute Neuts (auto) Absolute Nucleated RBC Nucleated RBC % (auto) Smear Tech's Comments O2 Saturation ABG pH at Pt Temp ABG pCO2 at Pt Temp ABG pO2 at Pt Temp ABG HCO3 ABG Base Excess (Actual) VBG pH 7.52 H VBG pCO2 29 VBG pO2 97 VBG HCO3 24 VBG O2 Saturation 99.0 VBG Base Excess 2.7 Sodium Potassium Chloride Carbon Dioxide Anion Gap BUN Creatinine Estim Creat Clear Calc Estimated GFR POC Glucose 300 H Random Glucose Lactic Acid Lactic Acid F/U @ 2Hr 2.7 H* Lactic Acid F/U @ 4Hr Calcium Phosphorus Magnesium Total Bilirubin AST ALT Alkaline Phosphatase Ammonia Troponin I High Sens NT-Pro-B Natriuret Pep Total Protein Albumin 12/31/24 12/31/24 12/31/24 01:12 03:30 05:02 WBC RBC Hgb Hct MCV MCH MCHC RDW Plt Count MPV Immature Gran % (Auto) Neut % (Auto) Lymph % (Auto) [place] % (Auto) Eos % (Auto) Baso % (Auto) Lymph # (Auto) [place] # (Auto) Eos # (Auto) Baso # (Auto) Abs Immat Gran (auto) Absolute Neuts (auto) Absolute Nucleated RBC Nucleated RBC % (auto) Smear Tech's Comments O2 Saturation ABG pH at Pt Temp ABG pCO2 at Pt Temp ABG pO2 at Pt Temp ABG HCO3 ABG Base Excess (Actual) VBG pH VBG pCO2 VBG pO2 VBG HCO3 VBG O2 Saturation VBG Base Excess Sodium 147 H Potassium 4.7 Chloride 117 H Carbon Dioxide 18 L Anion Gap 17 BUN 55 H Creatinine 1.12 Estim Creat Clear Calc 48.8 Estimated GFR 49 POC Glucose 316 H 302 H Random Glucose 327 H Lactic Acid Lactic Acid F/U @ 2Hr Lactic Acid F/U @ 4Hr 2.8 H* Calcium 9.1 Phosphorus 3.3 Magnesium 2.2 Total Bilirubin AST ALT Alkaline Phosphatase Ammonia Troponin I High Sens NT-Pro-B Natriuret Pep Total Protein Albumin 2.9 L 12/31/24 12/31/24 12/31/24 05:23 05:32 05:59 WBC 13.8 H RBC 3.64 L D Hgb 8.9 L D Hct 25.9 L MCV 71.2 L MCH 24.5 L MCHC 34.4 RDW 17.9 H Plt Count 269 D MPV Not Reportable Immature Gran % (Auto) 2.6 H Neut % (Auto) 79.8 H Lymph % (Auto) 11.1 L [place] % (Auto) 3.8 Eos % (Auto) 2.5 Baso % (Auto) 0.2 Lymph # (Auto) 1.5 [place] # (Auto) 0.5 Eos # (Auto) 0.4 Baso # (Auto) 0.0 Abs Immat Gran (auto) 0.36 H Absolute Neuts (auto) 11.0 H Absolute Nucleated RBC 0.180 H Nucleated RBC % (auto) 1.3 H Smear Tech's Comments VERIFIED O2 Saturation ABG pH at Pt Temp ABG pCO2 at Pt Temp ABG pO2 at Pt Temp ABG HCO3 ABG Base Excess (Actual) VBG pH 7.49 H VBG pCO2 28 VBG pO2 64 VBG HCO3 21 L VBG O2 Saturation 91.0 VBG Base Excess -0.6 Sodium 149 H Potassium 4.1 Chloride 119 H Carbon Dioxide 18 L Anion Gap 16 BUN 48 H Creatinine 1.07 Estim Creat Clear Calc 45.6 Estimated GFR 52 POC Glucose 276 H Random Glucose 304 H Lactic Acid Lactic Acid F/U @ 2Hr Lactic Acid F/U @ 4Hr Calcium 9.3 Phosphorus 3.4 Magnesium 2.3 Total Bilirubin 0.6 AST 16 ALT 12 Alkaline Phosphatase 89 Ammonia Troponin I High Sens NT-Pro-B Natriuret Pep 591.5 H Total Protein 6.5 Albumin 4.0 12/31/24 07:20 WBC RBC Hgb Hct MCV MCH MCHC RDW Plt Count MPV Immature Gran % (Auto) Neut % (Auto) Lymph % (Auto) [place] % (Auto) Eos % (Auto) Baso % (Auto) Lymph # (Auto) [place] # (Auto) Eos # (Auto) Baso # (Auto) Abs Immat Gran (auto) Absolute Neuts (auto) Absolute Nucleated RBC Nucleated RBC % (auto) Smear Tech's Comments O2 Saturation ABG pH at Pt Temp ABG pCO2 at Pt Temp ABG pO2 at Pt Temp ABG HCO3 ABG Base Excess (Actual) VBG pH VBG pCO2 VBG pO2 VBG HCO3 VBG O2 Saturation VBG Base Excess Sodium Potassium Chloride Carbon Dioxide Anion Gap BUN Creatinine Estim Creat Clear Calc Estimated GFR POC Glucose 242 H Random Glucose Lactic Acid Lactic Acid F/U @ 2Hr Lactic Acid F/U @ 4Hr Calcium Phosphorus Magnesium Total Bilirubin AST ALT Alkaline Phosphatase Ammonia Troponin I High Sens NT-Pro-B Natriuret Pep Total Protein Albumin Microbiology Microbiology Results: Microbiology 12/22/24 20:59 Blood - Venous Blood Culture - Final No growth after 5 days. 12/22/24 02:49 Blood - Venous Blood Culture - Final No growth after 5 days. 12/22/24 02:49 Blood - Venous Blood Culture - Final No growth after 5 days. 12/19/24 18:25 Pericardial Fluid Gram Stain - Final 12/19/24 18:25 Pericardial Fluid Anaerobic Culture - Final NO GROWTH AFTER 5 DAYS 12/19/24 18:25 Pericardial Fluid Body Fluid Culture - Final No growth after 2 days 12/17/24 08:52 Blood - Venous Blood Culture - Final No growth after 5 days. 12/17/24 08:42 Blood - Venous Blood Culture - Final No growth after 5 days. Progress Note: A&P Assessment and plan (1) Schizoaffective disorder: Status: Acute (2) Pericardial effusion: Status: Acute (3) Hypothyroidism: Status: Acute (4) Encephalopathy acute: Status: Acute (5) Acute respiratory failure with hypoxia: Status: Acute (6) Cardiogenic shock: Status: Acute Plan Neuro: Acute encephalopathy possibly due to metabolic encephalopathy Head CT scan upon admission negative for any intracranial pathology, chronic frontal lobe atrophy seen We will get a MRI of the brain to look into further details him to obtain. Has significant schizoaffective disorder and other psych issues at baseline. Continue quetiapine 400 mg at nighttime, risperidone 2 mg in PM. and 1 mg at AM. On propofol for sedation, as needed fentanyl for analgesia Close neurological status monitoring in the ICU every hour will do a lumbar puncture after MRI and will evaluate for autoimmune encephalitis. Cardiac: Cardiogenic Shock: Possibly secondary to positive pressure ventilation On Levophed support, titrate Levophed to keep map above 65 mm Hg pericardial effusion: s/p pericardial drain placed and 180cc fluid drained on 12/19/2024 exudative pericardial effusion with albulin 2.5, protein 3.6, 260 cells moslty epithelial cells; negative for malignancy. Respiratory: Acute hypoxemic respiratory failure due to interstitial lung disease versus pulmonary fibrosis on ventilator support On PRVC mode FiO2 down to 60% this morning will titrate further down as tolerated, PEEP 5, TV 400, RR 20 Peak pressures and plateau pressures are under the curve Ventilator management bundle with head end elevation, aspiration precaution, chlorhexidine mouthwash, daily awakening trials, daily spontaneous breathing trials She received high-dose Solu-Medrol 250 mg TID for 3 days without much response in her respiratory efforts. continue solumedrol at 40 mg BID GI: On PPN We will start her on tube feeds failed swallow eval due to poor mentation prior to intubation Renal: Renal function stable We will closely monitor I's and O's Avoid nephrotoxic medications Hypernatremia: Asked pharmacy to adjust her sodium in the TPN improved, down to 149 Heme: Chronic anemia, closely monitor H&H, transfuse for hemoglobin less than 7 grams/deciliter Endocrine: Hypothyroidism: Continue levothyroxine Blood sugars under control Sliding scale insulin as needed Infectious disease: negative pancultures so far On empiric cefepime and Flagyl; will discontinue flagyl will add fluconazole given no much reponse to antibiotics and steroids will send fungitel will do a bronch and send cultures. given pericardial effusion, vitiligo and unexplained lung disease will send a rheumatologic work up and will get pickard scans to rule out malignancy will also get KANIKA, DS DNA, ANCA, anti Scl 70, anti Imelda, rheumatoid factor, tube puller, anti douglas, Hepatitis panel, HIV, RACHAEL level Fungal staining on bronch, CD4:CD8 ratio, silver statining, cytology, eosinophil count, AFB staining on bronch. Musculoskeletal: Decubitus ulcer prevention protocol Lines: Peripheral Prophylaxis: Lovenox, pantoprazole This patient has been admitted to the hospital 14 days ago secondary to ARDS requiring significant oxygen support, intubated and extubated once but postextubation she did not do well requiring very high oxygen demand, 100% FiO2 despite which she had frequent rapid responses for hypoxia. She had to be reintubated again today because severe dyspnea and episodes of hypoxia. Given that she has been hospitalized for so many days with no improvement in her oxygenation but further worsening in her dyspnea needing re-intubation her prognosis is going to be very poor. On top of this she has significant underlying multiple psych issues living in a care home which complicates her situation and makes her a very poor candidate for tracheostomy if and when needed. It is less likely that this patient will have a very positive outcome from this hospitalization, we will ask the guardian for change of code status to DNI/DNR while we continue aggressive care. Critical care time spent is 40 minutes on vent management, sedation management, vasopressor management,close hemodynamic monitoring, reviewing labs and this time is excluding any procedural time.. Quality Stroke Does the patient have a stroke diagnosis?: No VTE Prior VTE?: No VTE Risk Level:: Medical - moderate - high VTE Device Contraindication: N/A - Device Ordered VTE Drug Contraindication: N/A - Med Ordered
[2024-12-31 08:41] LABS: Glucose, Whole Blood 215 mg/dL (60-115)
[2024-12-31 09:08] LABS: Glucose, Whole Blood 201 mg/dL (60-115)
[2024-12-31 10:26] LABS: Glucose, Whole Blood 164 mg/dL (60-115)
--- NOTE | 2024-12-31 11:22 | MHC.CLN ---
F/U PT TRANSFERRED TO ICU FROM MEDICAL FLOOR PREVIOUSLY RECEIVED PPN R/T NOT TAKING ADEQUATE PO R/T INABILITY TO FOLLOW COMMANDS DISCUSSED AT ROUNDS WITH MD PT IS INTUBATED AND SEDATED PLAN TO START TF RECOMMEND GLUCERNA 1.2 TF AT MAX GOAL RATE 45ML/HR WITH 240ML FREE WATER FLUSHES Q 6 HRS TO PROVIDE 1296KCALS (1727KCALS WITH SEDATION; 28KCALS/KG), 65G PROTEIN (1.0G/KG), 1830ML TOTAL WATER FROM FORMULA AND FLUSHES (30ML/KG) MONITOR TOLERANCE AND LYTES SEE FULL ASSESSMENT
--- NOTE | 2024-12-31 11:37 | W.PM.CCHP ---
Procedures Date of Service Date of Service: 12/31/24 Bronchoscopy Consent for Procedure: Emergent-no informed consent obtained Indication: other Route: endotracheal tube Sedation/Analgesia: fentanyl Findings: Bronchoscope was passed through the ET tube, trachea and major airways all looked normal, no mucosal erythema or any petichiaes. No intrabronchial lesions were noted. Thin sticky secretions were seen mostly in the right upper lobe and left upper lobe which was aspirated. Bronchoalveolar lavage was performed in right upper lobe, right middle lobe and left lower lobe and samples are sent for AFB culture, fungal stain, Gram stain, cytology, cell count.
[2024-12-31 11:44] LABS: Glucose, Whole Blood 159 mg/dL (60-115)
[2024-12-31] MEDS: fentaNYL citrate/NS 1,000 MCG/100 ML PLAST..BAG 7.5 MCG IVCONT ×2 (11:50→22:13)
[2024-12-31 12:30] LABS: HBS Num1 2.98 mIU/mL (0-7.99); HBc Num1 10.43 S/CO (0.00-0.79); HBsAGNum1 0.51 S/CO (0.00-0.99); HIV Num 1 0.49 S/CO (0.00-0.99); Hepatitis B Surface Antigen Negative (Negative); ~HepC Num1 0.07 S/CO (0.00-0.79); ~Hepatitis B Surface Antibody NONREACTIVE (Nonreactive); ~Hepatitis C Antibody Nonreactive (Nonreactive)
[2024-12-31 14:13] LABS: HBc Num2 10.51 S/CO; HBc Num3 10.49 S/CO
[2024-12-31 14:15] LABS: ABG Refer to POC result
[2024-12-31 14:50] LABS: Glucose, Whole Blood 150 mg/dL (60-115)
--- NOTE | 2024-12-31 15:32 | MHC.CM.PN ---
Pt now intubated in ICU: awaiting court date for expansion of guardianship to allow for code status changes. Pt is a L[facility] resident of [facility]. D/C planning remains ongoing.
[2024-12-31 17:09] LABS: WBC Bronchial Washing 0 MM*3
[2024-12-31 17:10] LABS: RBC Bronchial Washing 2 MM*3
[2024-12-31 17:36] LABS: Glucose, Whole Blood 148 mg/dL (60-115)
--- NOTE | 2024-12-31 18:17 | PC.NURSE ---
Assumed care of patient 0700. Patient is mechanically vented and sedated requiring multiple continuous drips including propofol, fentanyl, levophed, insulin and PPN (see MAR for details). Per discussion with MD at multidisciplinary rounds, order for MRI of brain today, bedside bronchoscopy for bronchial washings samples, possible lumbar puncture. 10:00 discussed POC glucose with MD and non-DKA insulin gtt protocol. Approx 10:50 Per MD discontinued Insulin gtt and PPN with plan to start patient on tube feeds via OG tube. Approx 11:10 Bronchoscopy started with MD, RT and RN at bedside 252. Time out performed. Patient tolerated fair, SaO2 maintained. Increased levophed gtt needs at this time. Bronchial washings collected from RLL, RML and LLL. Sent to lab for multiple tests, see orders in EMR. Approx 12:20-14:00 RT and RN transported patient to MRI brain. Continuous drips maintained with extension tubing, continuous cardiac monitoring. Approx 14:00 returned to ICU and patient moved to [facility] negative pressure room 262 for r/o tuberculosis as part of respiratory work-up. Patient provided partial bed bath 16:30. Large foam dsg changed to coccyx, blanchable redness. High fall precautions in place, Q2HR repositioning. See shift assessments.
[2024-12-31 22:10] LABS: Alanine Aminotransferase 8 U/L (0-31); Albumin Level 3.3 g/dL (3.5-5.0); Alkaline Phosphatase 93 U/L (39-117); Anion Gap 10 (12-20); Aspartate Amino Transferase 16 U/L (5-31); Blood Urea Nitrogen 35 mg/dL (9-16); Calcium 9.1 mg/dL (8.4-10.2); Carbon Dioxide 23 mmol/L (22-29); Chloride 117 mmol/L (96-108); Creatinine Clr Calc Pharmacy 52.5; Estimated Glomerular Filt Rate > 60; Potassium 4.4 mmol/L (3.3-5.1); Sodium 146 mmol/L (135-145); Total Protein 5.3 g/dL (6.5-8.0)
[2024-12-31 23:30] LABS: Glucose, Whole Blood 175 mg/dL (60-115)
[2025-01-01] VITALS (46 sets, daily range): BP systolic 93–171; BP diastolic 46–85; PULSE 67–108; RESP 13–26; TEMP 35–37.7; O2SAT 89–99; BMI 26.1
[2025-01-01] MEDS: Albumin Human 25 % 100 ML 133.33 ML IV (00:11)
[2025-01-01] MEDS: cefEPime HCl/D5W 2 GM/50 ML PIGGYBACK IV ×2 (00:59→13:40)
--- NOTE | 2025-01-01 04:22 | PC.NURSE ---
CARE ASSUMED 7PM...REMAINS INTUBATED..PCV VENT SUPPORT....Ve 8-10 L/M...SUCTIONED SMALL AMOUNTS THICK CREAM SECRETIONS VIA ETT....PROPOFOL 40 MCG/KG/MIN AND FENTANYL 75 MCG/HR..SEDATE AT REST...INTERMITTANT FORCEFUL COUGH EFFORT..WEAKLY MOVES EXTREMETIES BUT NOT TO COMMAND..LEVOPHED DRIP PER MAY...NSR HR 88-92 AT SHIFT CHANGE...HR TRENDED UP TO 138-140..AFEBRILE..LOPRESSOR 5MG IVP X1 PER PROVIDER WITH CONTROLLED HR..NSR 70-84..RARE PAC'S...ALBUMEN 25 GRAMS X2 BAGS GIVEN PER PROVIDER...OG-TUBE TUBE FEEDS GLUCERNA TITRATED FROM 20 CC/HR TO GOAL OF 45 CC/HR..H20 240ML X2 BOLUSES OVERNIGHT ..HEART SOUNDS REMAIN REGULAR/STRONG..MCCAULEY YELLOW URINE
[2025-01-01 05:23] LABS: VBG HCO3 20 mmol/L (22-26); VBG O2 % Saturation 93.0 %
[2025-01-01 05:26] LABS: Hematocrit 23.0 % (37.0-47.0); Hemoglobin 7.6 g/dl (12.0-16.0); Mean Corpuscular HGB Conc 33.0 g/dl (31.0-35.0); Mean Corpuscular Hemoglobin 23.0 pg (27.0-33.0); Mean Corpuscular Volume 69.5 fL (80.0-98.0); NRBC Abs Auto 0.050 X10*3/uL (0.0-0.012); NRBC Pct Auto 0.4 /100WBC (0.0-0.2); PLT CLUMP 1; Red Blood Count 3.31 X10*6/uL (4.20-5.50); Venous Blood Gas Refer to POC result
[2025-01-01 05:35] LABS: Alanine Aminotransferase 10 U/L (0-31); Albumin Level 3.9 g/dL (3.5-5.0); Alkaline Phosphatase 78 U/L (39-117); Anion Gap 11 (12-20); Aspartate Amino Transferase 16 U/L (5-31); Blood Urea Nitrogen 36 mg/dL (9-16); Calcium 9.0 mg/dL (8.4-10.2); Carbon Dioxide 21 mmol/L (22-29); Chloride 116 mmol/L (96-108); Creatinine Clr Calc Pharmacy 55.5; Estimated Glomerular Filt Rate > 60; Magnesium 2.2 mg/dL (1.6-2.6); Potassium 4.5 mmol/L (3.3-5.1); Sodium 143 mmol/L (135-145); Total Protein 5.5 g/dL (6.5-8.0)
[2025-01-01 05:54] LABS: Platelet Count 158 X10*3/uL (160-400); White Blood Count 12.7 X10*3/uL (4.8-10.8)
[2025-01-01 06:10] LABS: Atypical Lymph Absolute Manual 0.1 x10*3/uL; Atypical Lymphs Percent Manual 1 % (0-6); Band Neutrophils Percent 1 % (3-5); Eosinophils Absolute Manual 0.6 X10*3/uL (0.0-0.4); Eosinophils Percent Manual 5 % (0-4); Lymphocytes Absolute Manual 0.4 X10*3/uL (1.2-4.9); Lymphocytes Percent Manual 3 % (20-40); Monocytes Absolute Manual 0.5 X10*3/uL (0.1-1.2); Monocytes Percent Manual 4 % (2-11); Neutrophils Absolute Manual 11.0 X10*3/uL (2.0-8.3); Neutrophils Percent Manual 86 % (45-73); RBC Morphology NOTED
[2025-01-01 06:11] LABS: Polychromasia 1+ (0-2) /OIF; Schistocytes 1+ (0-2) /OIF
[2025-01-01 06:13] LABS: Tear Drop Cells 1+ (0-2) /OIF
[2025-01-01 06:14] LABS: Microcytosis 3+ (>30) /OIF; Spherocytes 1+ (0-2) /OIF
[2025-01-01 06:15] LABS: Basophilic Stippling 1+ (0-2) /OIF
[2025-01-01 06:38] LABS: Hepatitis B Core Antibody IgM NON-REACTIVE (NON-REACTIVE)
[2025-01-01] MEDS: 0.9 % Sodium Chloride Flush 3 ML SYRINGE IVFLUSH ×3 (07:55→23:30)
[2025-01-01] MEDS: Chlorhexidine Gluc Oral Rinse 15 ML MOUTHWASH BUCCAL ×3 (08:26→20:14)
[2025-01-01] MEDS: Insulin Glargine,Hum.rec.anlog 100 UNIT/ML 10 ML VIAL 20 UNIT SUBCUT (08:27)
--- NOTE | 2025-01-01 08:46 | PM.CCPN ---
Subjective Subjective Date of Service: 01/01/25 Interval History: Remains on ventilator support No new events overnight Propofol for sedation, fentanyl for analgesia Levophed for vasopressor support Critical Care Time (minutes): 35 Physical Exam Vital Signs: Vital Signs: Last Vital Signs Temp 99.7 F 01/01/25 08:00 Pulse 90 01/01/25 08:00 Resp 15 01/01/25 07:00 BP 138/72 01/01/25 08:00 Pulse Ox 94 01/01/25 08:00 O2 Del Method Mechanical Ventil ation 01/01/25 08:00 O2 Flow Rate 50 12/30/24 16:00 FiO2 60 01/01/25 08:00 Oxygen Flow Rate 60 12/30/24 11:13 BMI result Body Mass Index 26.1 General: Elderly lady acute distress, ill appearing and tired appearing , diffuse vitiligo Nutritional Appearance: Poorly nourished and normal weight Eyes: appearance normal, both eyes and all related structures; Alignment and Position: alignment normal and position normal Neck: No lymphadenopathy, no thyromegaly Resp: bilateral air entry equal, occasional added sounds present Cardio: Regular rate, regular rhythm; Heart sounds: S1 normal heart sound present and S2 normal heart sound present GI: soft, nontender, no guarding, no hepatosplenomegaly : bladder normal to inspection, bladder normal to palpation, no renal angle tenderness Skin: no rashes or lesions noted and elasticity normal Neuro: Sedated, no focal deficits Objective Data Labs 01/01/25 05:11 01/01/25 05:11 Labs: Laboratory Results - last 24 hr 12/31/24 12/31/24 12/31/24 09:03 10:18 10:19 WBC RBC Hgb Hct MCV MCH MCHC RDW Plt Count MPV Immature Gran % (Auto) Neut % (Auto) Lymph % (Auto) [place] % (Auto) Eos % (Auto) Baso % (Auto) Lymph # (Auto) [place] # (Auto) Eos # (Auto) Baso # (Auto) Abs Immat Gran (auto) Absolute Neuts (auto) Absolute Nucleated RBC Nucleated RBC % (auto) Neutrophils % (Manual) Band Neutrophils % Lymphocytes % (Manual) Atypical Lymphs % (Man) Monocytes % (Manual) Eosinophils % (Manual) Abs Neuts (Manual) Lymphocytes # (Manual) Atyp Lymphs # (Manual) Monocytes # (Manual) Eosinophils # (Manual) Nucleated RBCs Platelet Estimate Plt Morphology Comment RBC Morphology Polychromasia Basophilic Stippling Microcytosis Spherocytes Tear Drop Cells Schistocytes VBG pH VBG pCO2 VBG pO2 VBG HCO3 VBG O2 Saturation VBG Base Excess Sodium Potassium Chloride Carbon Dioxide Anion Gap BUN Creatinine Estim Creat Clear Calc Estimated GFR POC Glucose 201 H Random Glucose Calcium Phosphorus Magnesium Total Bilirubin AST ALT Alkaline Phosphatase Lactate Dehydrogenase Total Protein Albumin Bronchial Fluid WBC Bronchial Fluid RBC Rheumatoid Factor < 13.0 Hep Bs Antigen Negative Hep Bs Antibody NONREACTIVE Hep B Core Total Ab Reactive Hep B Core IgM Ab NON-REACTIVE Hepatitis C Ab (EIA) Nonreactive HIV 1&2 Ab/P24 Ag 4thGn Nonreactive 12/31/24 12/31/24 12/31/24 10:21 10:23 11:02 WBC RBC Hgb Hct MCV MCH MCHC RDW Plt Count MPV Immature Gran % (Auto) Neut % (Auto) Lymph % (Auto) [place] % (Auto) Eos % (Auto) Baso % (Auto) Lymph # (Auto) [place] # (Auto) Eos # (Auto) Baso # (Auto) Abs Immat Gran (auto) Absolute Neuts (auto) Absolute Nucleated RBC Nucleated RBC % (auto) Neutrophils % (Manual) Band Neutrophils % Lymphocytes % (Manual) Atypical Lymphs % (Man) Monocytes % (Manual) Eosinophils % (Manual) Abs Neuts (Manual) Lymphocytes # (Manual) Atyp Lymphs # (Manual) Monocytes # (Manual) Eosinophils # (Manual) Nucleated RBCs Platelet Estimate Plt Morphology Comment RBC Morphology Polychromasia Basophilic Stippling Microcytosis Spherocytes Tear Drop Cells Schistocytes VBG pH VBG pCO2 VBG pO2 VBG HCO3 VBG O2 Saturation VBG Base Excess Sodium Potassium Chloride Carbon Dioxide Anion Gap BUN Creatinine Estim Creat Clear Calc Estimated GFR POC Glucose 164 H 159 H Random Glucose Calcium Phosphorus Magnesium Total Bilirubin AST ALT Alkaline Phosphatase Lactate Dehydrogenase 391 H Total Protein Albumin Bronchial Fluid WBC Bronchial Fluid RBC Rheumatoid Factor Hep Bs Antigen Hep Bs Antibody Hep B Core Total Ab Hep B Core IgM Ab Hepatitis C Ab (EIA) HIV 1&2 Ab/P24 Ag 4thGn 12/31/24 12/31/24 12/31/24 11:58 14:46 17:31 WBC RBC Hgb Hct MCV MCH MCHC RDW Plt Count MPV Immature Gran % (Auto) Neut % (Auto) Lymph % (Auto) [place] % (Auto) Eos % (Auto) Baso % (Auto) Lymph # (Auto) [place] # (Auto) Eos # (Auto) Baso # (Auto) Abs Immat Gran (auto) Absolute Neuts (auto) Absolute Nucleated RBC Nucleated RBC % (auto) Neutrophils % (Manual) Band Neutrophils % Lymphocytes % (Manual) Atypical Lymphs % (Man) Monocytes % (Manual) Eosinophils % (Manual) Abs Neuts (Manual) Lymphocytes # (Manual) Atyp Lymphs # (Manual) Monocytes # (Manual) Eosinophils # (Manual) Nucleated RBCs Platelet Estimate Plt Morphology Comment RBC Morphology Polychromasia Basophilic Stippling Microcytosis Spherocytes Tear Drop Cells Schistocytes VBG pH VBG pCO2 VBG pO2 VBG HCO3 VBG O2 Saturation VBG Base Excess Sodium Potassium Chloride Carbon Dioxide Anion Gap BUN Creatinine Estim Creat Clear Calc Estimated GFR POC Glucose 150 H 148 H Random Glucose Calcium Phosphorus Magnesium Total Bilirubin AST ALT Alkaline Phosphatase Lactate Dehydrogenase Total Protein Albumin Bronchial Fluid WBC 0 Bronchial Fluid RBC 2 Rheumatoid Factor Hep Bs Antigen Hep Bs Antibody Hep B Core Total Ab Hep B Core IgM Ab Hepatitis C Ab (EIA) HIV 1&2 Ab/P24 Ag 4thGn 12/31/24 12/31/24 01/01/25 21:47 23:15 05:11 WBC 12.7 H RBC 3.31 L Hgb 7.6 L Hct 23.0 L MCV 69.5 L MCH 23.0 L MCHC 33.0 RDW 16.1 H Plt Count 158 L D MPV Not Reportable Immature Gran % (Auto) Cancelled Neut % (Auto) Cancelled Lymph % (Auto) Cancelled [place] % (Auto) Cancelled Eos % (Auto) Cancelled Baso % (Auto) Cancelled Lymph # (Auto) Cancelled [place] # (Auto) Cancelled Eos # (Auto) Cancelled Baso # (Auto) Cancelled Abs Immat Gran (auto) Cancelled Absolute Neuts (auto) Cancelled Absolute Nucleated RBC 0.050 H Nucleated RBC % (auto) 0.4 H Neutrophils % (Manual) 86 H Band Neutrophils % 1 L Lymphocytes % (Manual) 3 L Atypical Lymphs % (Man) 1 Monocytes % (Manual) 4 Eosinophils % (Manual) 5 H Abs Neuts (Manual) 11.0 H Lymphocytes # (Manual) 0.4 L Atyp Lymphs # (Manual) 0.1 Monocytes # (Manual) 0.5 Eosinophils # (Manual) 0.6 H Nucleated RBCs 1 H Platelet Estimate DECREASED Plt Morphology Comment NORM RBC Morphology NOTED Polychromasia 1+ (0-2) Basophilic Stippling 1+ (0-2) Microcytosis 3+ (>30) Spherocytes 1+ (0-2) Tear Drop Cells 1+ (0-2) Schistocytes 1+ (0-2) VBG pH VBG pCO2 VBG pO2 VBG HCO3 VBG O2 Saturation VBG Base Excess Sodium 146 H 143 Potassium 4.4 4.5 Chloride 117 H 116 H Carbon Dioxide 23 21 L Anion Gap 10 L 11 L BUN 35 H 36 H Creatinine 0.93 0.88 Estim Creat Clear Calc 52.5 55.5 Estimated GFR > 60 > 60 POC Glucose 175 H Random Glucose 184 H 239 H Calcium 9.1 9.0 Phosphorus 2.9 Magnesium 2.2 Total Bilirubin 0.7 0.7 AST 16 16 ALT 8 10 Alkaline Phosphatase 93 78 Lactate Dehydrogenase Total Protein 5.3 L 5.5 L Albumin 3.3 L 3.9 Bronchial Fluid WBC Bronchial Fluid RBC Rheumatoid Factor Hep Bs Antigen Hep Bs Antibody Hep B Core Total Ab Hep B Core IgM Ab Hepatitis C Ab (EIA) HIV 1&2 Ab/P24 Ag 4thGn 01/01/25 05:19 WBC RBC Hgb Hct MCV MCH MCHC RDW Plt Count MPV Immature Gran % (Auto) Neut % (Auto) Lymph % (Auto) [place] % (Auto) Eos % (Auto) Baso % (Auto) Lymph # (Auto) [place] # (Auto) Eos # (Auto) Baso # (Auto) Abs Immat Gran (auto) Absolute Neuts (auto) Absolute Nucleated RBC Nucleated RBC % (auto) Neutrophils % (Manual) Band Neutrophils % Lymphocytes % (Manual) Atypical Lymphs % (Man) Monocytes % (Manual) Eosinophils % (Manual) Abs Neuts (Manual) Lymphocytes # (Manual) Atyp Lymphs # (Manual) Monocytes # (Manual) Eosinophils # (Manual) Nucleated RBCs Platelet Estimate Plt Morphology Comment RBC Morphology Polychromasia Basophilic Stippling Microcytosis Spherocytes Tear Drop Cells Schistocytes VBG pH 7.47 H VBG pCO2 28 VBG pO2 69 VBG HCO3 20 L VBG O2 Saturation 93.0 VBG Base Excess -2.1 Sodium Potassium Chloride Carbon Dioxide Anion Gap BUN Creatinine Estim Creat Clear Calc Estimated GFR POC Glucose Random Glucose Calcium Phosphorus Magnesium Total Bilirubin AST ALT Alkaline Phosphatase Lactate Dehydrogenase Total Protein Albumin Bronchial Fluid WBC Bronchial Fluid RBC Rheumatoid Factor Hep Bs Antigen Hep Bs Antibody Hep B Core Total Ab Hep B Core IgM Ab Hepatitis C Ab (EIA) HIV 1&2 Ab/P24 Ag 4thGn Microbiology Microbiology Results: Microbiology 12/31/24 11:58 Bronch Lll Gram Stain - Final 12/31/24 05:23 Blood - Venous Blood Culture - Preliminary No growth after 24 hours. 12/22/24 20:59 Blood - Venous Blood Culture - Final No growth after 5 days. 12/22/24 02:49 Blood - Venous Blood Culture - Final No growth after 5 days. 12/22/24 02:49 Blood - Venous Blood Culture - Final No growth after 5 days. 12/19/24 18:25 Pericardial Fluid Gram Stain - Final 12/19/24 18:25 Pericardial Fluid Anaerobic Culture - Final NO GROWTH AFTER 5 DAYS 12/19/24 18:25 Pericardial Fluid Body Fluid Culture - Final No growth after 2 days 12/17/24 08:52 Blood - Venous Blood Culture - Final No growth after 5 days. 12/17/24 08:42 Blood - Venous Blood Culture - Final No growth after 5 days. Progress Note: A&P Assessment and plan (1) Schizoaffective disorder: Status: Acute (2) Cardiogenic shock: Status: Acute (3) Encephalopathy acute: Status: Acute (4) Acute respiratory failure with hypoxia: Status: Acute Plan Neuro: Acute encephalopathy possibly due to metabolic encephalopathy Head CT scan upon admission negative for any intracranial pathology, chronic frontal lobe atrophy seen MRI of the brain showed chronic frontotemporal atrophy, possibly frontotemporal dementia is contributing to some of her psychiatric issues Has significant schizoaffective disorder and other psych issues at baseline. Continue quetiapine 400 mg at nighttime, risperidone 2 mg in PM. and 1 mg at AM. On propofol for sedation, as needed fentanyl for analgesia Close neurological status monitoring in the ICU every hour will do a lumbar puncture later today to rule immunological disorders Cardiac: Cardiogenic Shock: Possibly secondary to positive pressure ventilation On Levophed support, titrate Levophed to keep map above 65 mm Hg pericardial effusion: s/p pericardial drain placed and 180cc fluid drained on 12/19/2024 exudative pericardial effusion with albulin 2.5, protein 3.6, 260 cells moslty epithelial cells; negative for malignancy. Respiratory: Acute hypoxemic respiratory failure due to interstitial lung disease versus pulmonary fibrosis on ventilator support On PRVC mode FiO2 remains at 60%, PEEP 5, TV 400, RR 20 Peak pressures and plateau pressures are under the curve Ventilator management bundle with head end elevation, aspiration precaution, chlorhexidine mouthwash, daily awakening trials, daily spontaneous breathing trials She received high-dose Solu-Medrol 250 mg TID for 3 days without much response in her respiratory efforts. Bronchoscopy showed normal mucosa, no obstruction, no evidence of diffuse alveolar hemorrhage, no petechial rashes/ulcers/ erythema ruling against any viral infection continue solumedrol at 40 mg BID GI: PPN turned off on tube feeds failed swallow eval due to poor mentation prior to intubation Renal: Renal function stable We will closely monitor I's and O's Avoid nephrotoxic medications Hypernatremia: Resolved after stopping PPN Heme: Chronic anemia, closely monitor H&H, transfuse for hemoglobin less than 7 grams/deciliter Endocrine: Hypothyroidism: Continue levothyroxine Blood sugars under control Sliding scale insulin as needed Infectious disease: negative pancultures so far On empiric cefepime and Flagyl; will discontinue flagyl Continue empiric fluconazole given no much reponse to antibiotics and steroids Pending fungitel given pericardial effusion, vitiligo and unexplained lung disease will send a rheumatologic work up and will get pickard scans to rule out malignancy Pending KANIKA, DS DNA, ANCA, anti Scl 70, anti Imelda, rheumatoid factor, yeast pumper, anti douglas, Hepatitis panel, HIV, RACHAEL level Pending Fungal staining on bronch, cytology, eosinophil count, AFB staining on bronch. Musculoskeletal: Decubitus ulcer prevention protocol Lines: Peripheral Prophylaxis: Lovenox, pantoprazole Quality Stroke Does the patient have a stroke diagnosis?: No VTE Prior VTE?: No VTE Risk Level:: Medical - moderate - high VTE Device Contraindication: N/A - Device Ordered VTE Drug Contraindication: N/A - Med Ordered
--- NOTE | 2025-01-01 09:06 | MHC.CLN ---
F/U PT REMAINS INTUBATED AND SEDATED CONTINUE GLUCERNA 1.2 TF AT MAX GOAL RATE OF 45ML/HR WITH 240ML FREE WATER FLUSHES Q 6 HRS TO PROVIDE 1296KCALS (1727KCALS WITH SEDATION; 28KCALS/KG), 65G PROTEIN (1.0G/KG), 1830ML TOTAL WATER FROM FORMULA AND FLUSHES (30ML/KG) MONITOR TOLERANCE AND LYTES
[2025-01-01 11:48] LABS: MTB M. tuberculosis Complex NOT DETECTED (NOT DETECTED)
[2025-01-01] MEDS: fentaNYL citrate/NS 1,000 MCG/100 ML PLAST..BAG 10 MCG IVCONT (12:24)
[2025-01-01 12:34] LABS: Glucose, Whole Blood 271 mg/dL (60-115)
--- NOTE | 2025-01-01 14:25 | MHC.SLORD ---
Speech Language Pathology Order Status: Pt intubated, [employer] RO[employer] WORKER to assess when indicated.
--- NOTE | 2025-01-01 15:34 | MHC.CM.PN ---
EMR REVIEWED. PT REMAINS IN ICU ON VENTILATORY/PRESSOR SUPPORT. RADHAMES SULTANA CLINICALLY UPDATED VIA [facility]. CM WILL CONTINUE TO FOLLOW AND AWAIT COURT PPW FOR CODE STATUS CHANGE.
--- NOTE | 2025-01-01 16:23 | W.PM.CCHP ---
Procedures Date of Service Date of Service: 01/01/25 Lumbar Puncture Time out performed: Yes Patient position: right lateral decubitus Skin prep: Povidone-Iodine 1% and 0.5% Chlorhexidine/Alcohol Spinal needle gauge: 20G Interspace used: L4-L5 Opening pressure (cmH20): 34 Fluid initially obtained: clear Complications: none
[2025-01-01 16:33] LABS: SM/Ribonucleoprotein Ab <1.0 NEG AI (<1.0 NEG); Smith Protein <1.0 NEG AI (<1.0 NEG)
[2025-01-01 16:44] LABS: Proteinase 3 PR3 Antibodies <1.0 AI
[2025-01-01 17:18] LABS: Glucose, Whole Blood 297 mg/dL (60-115)
--- NOTE | 2025-01-01 18:29 | PC.NURSE ---
Assumed care @ 0700? Neuro/Resp: Sedated/intubated. Opens eyes occasionally, does not track, does not follow commands, Flaccid extremities . (passive ROM performed). LP performed at bedside by .? Resp: Vent. support. Cardiac: Sinus Rhythm on tele,? on Levophed? gtt - per MAY, MAP goal >65. GI: LBM 01/01 , +bowel sounds, OGT in place, tolerating TF w/o signs of intolerance,? POC Q6hr, on sliding scale insulin per MAY. . : Gordillo in place, patent /draining. Skin: ?Impaired skin integrity - see skin assessment (repositioning maintained)? Temp: Afebrile Infectious: IV antibiotics? Lines: peripheral IVs
[2025-01-01 19:27] LABS: CSF Other Cells % 0 %; Lymphocytes CSF 0 %; Neutrophils CSF 0 %; Red Blood Cell CSF 0 MM*3; White Blood Cell CSF 0 MM*3
[2025-01-01] MEDS: Furosemide 40 MG/4 ML VIAL IVPUSH (20:15)
[2025-01-01] MEDS: fentaNYL citrate/NS 1,000 MCG/100 ML PLAST..BAG 7.5 MCG IVCONT (21:32)
[2025-01-02] VITALS (40 sets, daily range): BP systolic 85–122; BP diastolic 50–73; PULSE 86–132; RESP 15–22; TEMP 34.9–37.9; O2SAT 90–97; BMI 25.7
[2025-01-02 00:01] LABS: Glucose, Whole Blood 319 mg/dL (60-115)
[2025-01-02] MEDS: cefEPime HCl/D5W 2 GM/50 ML PIGGYBACK IV ×2 (00:32→14:06)
[2025-01-02 05:21] LABS: Glucose, Whole Blood 303 mg/dL (60-115)
[2025-01-02 05:45] LABS: Hematocrit 26.5 % (37.0-47.0); Hemoglobin 8.7 g/dl (12.0-16.0); Imm Gran Abs Auto 0.27 X10*3/uL (0.00-0.03); Imm Gran Pct Auto 1.7 % (0.0-0.4); Lymphocytes Absolute Auto 0.5 X10*3/uL (1.2-4.9); MANUAL DIFF FLAG SCAN; Mean Corpuscular HGB Conc 32.8 g/dl (31.0-35.0); Mean Corpuscular Hemoglobin 22.8 pg (27.0-33.0); Mean Corpuscular Volume 69.4 fL (80.0-98.0); NRBC Abs Auto 0.040 X10*3/uL (0.0-0.012); NRBC Pct Auto 0.3 /100WBC (0.0-0.2); PLT CLUMP 1; Red Blood Count 3.82 X10*6/uL (4.20-5.50); SCAN SMEAR FLAG 1
[2025-01-02 05:46] LABS: Platelet Count 160 X10*3/uL (160-400); White Blood Count 15.6 X10*3/uL (4.8-10.8)
[2025-01-02 05:59] LABS: VBG HCO3 23 mmol/L (22-26)
[2025-01-02 06:01] LABS: Alanine Aminotransferase 10 U/L (0-31); Albumin Level 3.8 g/dL (3.5-5.0); Alkaline Phosphatase 92 U/L (39-117); Anion Gap 13 (12-20); Aspartate Amino Transferase 12 U/L (5-31); Blood Urea Nitrogen 36 mg/dL (9-16); Calcium 9.1 mg/dL (8.4-10.2); Carbon Dioxide 23 mmol/L (22-29); Chloride 111 mmol/L (96-108); Creatinine Clr Calc Pharmacy 58.5; Estimated Glomerular Filt Rate > 60; Magnesium 2.3 mg/dL (1.6-2.6); Potassium 3.9 mmol/L (3.3-5.1); Sodium 143 mmol/L (135-145); Total Protein 5.9 g/dL (6.5-8.0)
[2025-01-02 06:03] LABS: Venous Blood Gas Refer to POC result
--- NOTE | 2025-01-02 06:16 | PC.NURSE ---
CARE ASSUMED 7PM..REMAINS INTUBATED/PCV VENT SUPPORT..SEDATED WITH PROPOFOL AND FENTANYL DRIPS PER MAY...EYES OPEN AT TIMES BUT NO FOCUSING OR TRACKING..WEAKLY ZABALA TO NOXIOUS STIMULI BUT NOT TO COMMAND....INCREASED O2 NEED OVER PAST 48 HOURS..FLUID (+) APPROX 5.5 LITERS SINCE RETURNED TO ICU 12/30..LASIX 40MG IV GIVEN PER PROVIDER..DIURESED LARGE AMOUNTS CLEAR YELLOW URINE...HR TRENDED UPWARDS...SINUS TACHHR 120-130..FREQUENT PAC'S AND NON-SUSTAINED RUNS ATRIAL TACH...LOPRESSOR 2.5MG IV (PRN ORDER ) GIVEN 01:05 AND O5:55 WITH CONTROLLED HR AND MARKEDLY DECREASED ATRIAL ECTOPY..GLUCERNA 45 CC/HR..INCONTINANT MULTIPLE LOOSE BROWN STOOLS..POC GLUCOSE LEVELS ELEVATED.. 319 AND 303 BOTH COVERED WITH 8 UNITS LISPRO SC...PROVIDER AWARE..AM LANTUS DOSE TO INCREASE FROM 20 TO 30 UNITS THIS AM PER PROVIDER
[2025-01-02] MEDS: 0.9 % Sodium Chloride Flush 3 ML SYRINGE IVFLUSH ×2 (07:45→07:56)
[2025-01-02] MEDS: Chlorhexidine Gluc Oral Rinse 15 ML MOUTHWASH BUCCAL ×3 (07:55→19:51)
[2025-01-02] MEDS: Insulin Glargine,Hum.rec.anlog 100 UNIT/ML 10 ML VIAL 30 UNIT SUBCUT (07:56)
--- NOTE | 2025-01-02 08:31 | P.PNCC_ITS ---
Subjective Subjective Date of Service: 01/02/25 Interval History: Remains on ventilator support. On propofol and fentanyl for sedation, Levophed for vasopressor. Critical Care Time (minutes): 35 Physical Exam 2 Vital Signs: Vital Signs: Last Vital Signs Temp 100.2 F 01/02/25 08:00 Pulse 97 01/02/25 08:00 Resp 18 01/02/25 08:00 BP 120/50 L 01/02/25 08:00 Pulse Ox 93 01/02/25 08:00 O2 Del Method Mechanical Ventil ation 01/02/25 08:00 O2 Flow Rate 50 12/30/24 16:00 FiO2 75 01/02/25 08:00 Oxygen Flow Rate 60 12/30/24 11:13 BMI result Body Mass Index 25.7 General: Elderly lady in moderate acute distress, chronically ill appearing and tired appearing Nutritional Appearance: well nourished and overweight Eyes: appearance normal, both eyes and all related structures; Alignment and Position: alignment normal and position normal Neck: No lymphadenopathy, no thyromegaly Resp: bilateral air entry equal, crackles heard Cardio: Regular rate, regular rhythm; Heart sounds: S1 normal heart sound present and S2 normal heart sound present GI: soft, nontender, no guarding, no hepatosplenomegaly : bladder normal to inspection, bladder normal to palpation, no renal angle tenderness Skin: no rashes or lesions noted and elasticity normal Neuro: Sedated, no focal deficits Objective Data Labs 01/02/25 05:22 01/02/25 05:22 Labs: Laboratory Results - last 24 hr 12/31/24 12/31/24 12/31/24 10:18 10:19 11:58 WBC RBC Hgb Hct MCV MCH MCHC RDW Plt Count MPV Immature Gran % (Auto) Neut % (Auto) Lymph % (Auto) [place] % (Auto) Eos % (Auto) Baso % (Auto) Lymph # (Auto) [place] # (Auto) Eos # (Auto) Baso # (Auto) Abs Immat Gran (auto) Absolute Neuts (auto) Absolute Nucleated RBC Nucleated RBC % (auto) Smear Tech's Comments Smear Path Review VBG pH VBG pCO2 VBG pO2 VBG HCO3 VBG O2 Saturation VBG Base Excess Sodium Potassium Chloride Carbon Dioxide Anion Gap BUN Creatinine Estim Creat Clear Calc Estimated GFR POC Glucose Random Glucose Calcium Phosphorus Magnesium Total Bilirubin AST ALT Alkaline Phosphatase Total Protein Albumin CSF Tube Number CSF Volume CSF Appearance CSF Color CSF WBC CSF RBC CSF Neutrophils CSF Lymphocytes CSF Monocytes % CSF Other Cells % CSF Appearance (b) CSF Glucose CSF Total Protein Proteinase 3 (PR3) Ab <1.0 Myeloperoxidase Ab <1.0 Sm (Douglas) Antibody <1.0 NEG GROUP LEADER SEMICONDUCTOR TESTING Antibody <1.0 NEG SM/GROUP LEADER [employer]ICONDUCTOR TESTING IgG Antibody <1.0 NEG Scl-70 Scleroderma Ab <1.0 NEG Double Strand DNA Ab <1 M.tuberculosis DNA (PCR) NOT DETECTED MTB Rifampin Resis PCR NOT TESTED 01/01/25 01/01/25 01/01/25 05:11 12:26 16:20 WBC RBC Hgb Hct MCV MCH MCHC RDW Plt Count MPV Immature Gran % (Auto) Neut % (Auto) Lymph % (Auto) [place] % (Auto) Eos % (Auto) Baso % (Auto) Lymph # (Auto) [place] # (Auto) Eos # (Auto) Baso # (Auto) Abs Immat Gran (auto) Absolute Neuts (auto) Absolute Nucleated RBC Nucleated RBC % (auto) Smear Tech's Comments Smear Path Review SEE NOTE VBG pH VBG pCO2 VBG pO2 VBG HCO3 VBG O2 Saturation VBG Base Excess Sodium Potassium Chloride Carbon Dioxide Anion Gap BUN Creatinine Estim Creat Clear Calc Estimated GFR POC Glucose 271 H Random Glucose Calcium Phosphorus Magnesium Total Bilirubin AST ALT Alkaline Phosphatase Total Protein Albumin CSF Tube Number 2 CSF Volume CSF Appearance CSF Color CSF WBC CSF RBC CSF Neutrophils CSF Lymphocytes CSF Monocytes % CSF Other Cells % CSF Appearance (b) CSF Glucose CSF Total Protein Proteinase 3 (PR3) Ab Myeloperoxidase Ab Sm (Douglas) Antibody GROUP LEADER [employer]IC[employer] TESTING Antibody SM/GROUP LEADER [employer]ICONDUCTOR TESTING IgG Antibody Scl-70 Scleroderma Ab Double Strand DNA Ab M.tuberculosis DNA (PCR) MTB Rifampin Resis PCR 01/01/25 01/01/25 01/01/25 16:20 17:15 23:26 WBC RBC Hgb Hct MCV MCH MCHC RDW Plt Count MPV Immature Gran % (Auto) Neut % (Auto) Lymph % (Auto) [place] % (Auto) Eos % (Auto) Baso % (Auto) Lymph # (Auto) [place] # (Auto) Eos # (Auto) Baso # (Auto) Abs Immat Gran (auto) Absolute Neuts (auto) Absolute Nucleated RBC Nucleated RBC % (auto) Smear Tech's Comments Smear Path Review VBG pH VBG pCO2 VBG pO2 VBG HCO3 VBG O2 Saturation VBG Base Excess Sodium Potassium Chloride Carbon Dioxide Anion Gap BUN Creatinine Estim Creat Clear Calc Estimated GFR POC Glucose 297 H 319 H Random Glucose Calcium Phosphorus Magnesium Total Bilirubin AST ALT Alkaline Phosphatase Total Protein Albumin CSF Tube Number 4 CSF Volume 3.0 CSF Appearance CLEAR CSF Color COLORLESS CSF WBC 0 CSF RBC 0 CSF Neutrophils 0 CSF Lymphocytes 0 CSF Monocytes % 0 CSF Other Cells % 0 CSF Appearance (b) Clear, Colorless CSF Glucose 146 CSF Total Protein 39.8 Proteinase 3 (PR3) Ab Myeloperoxidase Ab Sm (Douglas) Antibody GROUP LEADER [employer] TESTING Antibody SM/GROUP LEADER [employer]IC[employer]UCTOR TESTING IgG Antibody Scl-70 Scleroderma Ab Double Strand DNA Ab M.tuberculosis DNA (PCR) MTB Rifampin Resis PCR 01/02/25 01/02/25 01/02/25 04:58 05:22 05:56 WBC 15.6 H RBC 3.82 L Hgb 8.7 L Hct 26.5 L MCV 69.4 L MCH 22.8 L MCHC 32.8 RDW 16.2 H Plt Count 160 MPV Not Reportable Immature Gran % (Auto) 1.7 H Neut % (Auto) 90.9 H Lymph % (Auto) 2.9 L [place] % (Auto) 4.4 Eos % (Auto) 0.0 Baso % (Auto) 0.1 Lymph # (Auto) 0.5 L [place] # (Auto) 0.7 Eos # (Auto) 0.0 Baso # (Auto) 0.0 Abs Immat Gran (auto) 0.27 H Absolute Neuts (auto) 14.2 H Absolute Nucleated RBC 0.040 H Nucleated RBC % (auto) 0.3 H Smear Tech's Comments VERIFIED Smear Path Review VBG pH 7.47 H VBG pCO2 31 VBG pO2 50 VBG HCO3 23 VBG O2 Saturation Not Reportable VBG Base Excess -0.1 Sodium 143 Potassium 3.9 Chloride 111 H Carbon Dioxide 23 Anion Gap 13 BUN 36 H Creatinine 0.92 Estim Creat Clear Calc 58.5 Estimated GFR > 60 POC Glucose 303 H Random Glucose 344 H Calcium 9.1 Phosphorus 2.9 Magnesium 2.3 Total Bilirubin 0.5 AST 12 ALT 10 Alkaline Phosphatase 92 Total Protein 5.9 L Albumin 3.8 CSF Tube Number CSF Volume CSF Appearance CSF Color CSF WBC CSF RBC CSF Neutrophils CSF Lymphocytes CSF Monocytes % CSF Other Cells % CSF Appearance (b) CSF Glucose CSF Total Protein Proteinase 3 (PR3) Ab Myeloperoxidase Ab Sm (Douglas) Antibody GROUP LEADER [employer] TESTING Antibody SM/GROUP LEADER SEMICONDUCTOR TESTING IgG Antibody Scl-70 Scleroderma Ab Double Strand DNA Ab M.tuberculosis DNA (PCR) MTB Rifampin Resis PCR Microbiology Microbiology Results: Microbiology 12/31/24 11:58 Bronch Rul Gram Stain - Final 12/31/24 11:58 Bronch Rul - Final No growth after 2 days 12/31/24 11:58 Bronch Lll Gram Stain - Final 12/31/24 11:58 Bronch Lll - Final Yeast 12/31/24 05:23 Blood - Venous Blood Culture - Preliminary No growth after 48 hours. 01/01/25 16:20 Cerebrospinal Fluid Gram Stain - Final 01/01/25 16:20 Cerebrospinal Fluid Fluid Description - Final 12/22/24 20:59 Blood - Venous Blood Culture - Final No growth after 5 days. 12/22/24 02:49 Blood - Venous Blood Culture - Final No growth after 5 days. 12/22/24 02:49 Blood - Venous Blood Culture - Final No growth after 5 days. 12/19/24 18:25 Pericardial Fluid Gram Stain - Final 12/19/24 18:25 Pericardial Fluid Anaerobic Culture - Final NO GROWTH AFTER 5 DAYS 12/19/24 18:25 Pericardial Fluid Body Fluid Culture - Final No growth after 2 days 12/17/24 08:52 Blood - Venous Blood Culture - Final No growth after 5 days. 12/17/24 08:42 Blood - Venous Blood Culture - Final No growth after 5 days. Progress Note: A&P Assessment and plan (1) Hypothyroidism: Status: Acute (2) Acute encephalopathy: Status: Acute (3) ARDS (adult respiratory distress syndrome): Status: Acute (4) COPD (chronic obstructive pulmonary disease): Status: Acute (5) Cardiogenic shock: Status: Acute (6) Schizoaffective disorder: Status: Acute Plan Neuro: Acute encephalopathy possibly due to metabolic encephalopathy Head CT scan upon admission negative for any intracranial pathology, chronic frontal lobe atrophy seen MRI of the brain showed chronic frontotemporal atrophy, possibly frontotemporal dementia is contributing to some of her psychiatric issues Lumbar puncture showed no cells, normal protein and glucose; rest of the workup pending. Has significant schizoaffective disorder and other psych issues at baseline. Continue quetiapine 400 mg at nighttime, risperidone 2 mg in PM. and 1 mg at AM. On propofol for sedation, as needed fentanyl for analgesia Close neurological status monitoring in the ICU every hour Cardiac: Cardiogenic Shock: Possibly secondary to positive pressure ventilation On Levophed support, titrate Levophed to keep map above 65 mm Hg pericardial effusion: s/p pericardial drain placed and 180cc fluid drained on 12/19/2024 exudative pericardial effusion with albumin 2.5, protein 3.6, 260 cells moslty epithelial cells; negative for malignancy. Respiratory: Acute hypoxemic respiratory failure due to interstitial lung disease versus pulmonary fibrosis on ventilator support On PRVC mode FiO2 incresaed to 80%, PEEP 5, TV 400, RR 20 Peak pressures and plateau pressures are under the curve Ventilator management bundle with head end elevation, aspiration precaution, chlorhexidine mouthwash, daily awakening trials, daily spontaneous breathing trials She received high-dose Solu-Medrol 250 mg TID for 3 days without much response in her respiratory efforts. Bronchoscopy showed normal mucosa, no obstruction, no evidence of diffuse alveolar hemorrhage, no petechial rashes/ulcers/ erythema ruling against any viral infection continue solumedrol at 40 mg BID GI: PPN turned off on tube feeds Renal: Renal function stable We will closely monitor I's and O's Avoid nephrotoxic medications Hypernatremia: Resolved after stopping PPN Heme: Chronic anemia, closely monitor H&H, transfuse for hemoglobin less than 7 grams/deciliter Endocrine: Hypothyroidism: Continue levothyroxine Blood sugars under control Sliding scale insulin as needed Infectious disease: negative pancultures so far On empiric cefepime and Flagyl; will discontinue flagyl Continue empiric fluconazole given no much reponse to antibiotics and steroids Pending fungitel given pericardial effusion, vitiligo and unexplained lung disease will send a rheumatologic work up and will get pickard scans to rule out malignancy Pending KANIKA, RACHAEL level negative DS DNA, ANCA, anti Scl 70, anti Imelda, rheumatoid factor, claims adjustor, anti douglas, Hepatitis panel, HIV. Pending Fungal staining on bronch, cytology, AFB staining on bronch. MTB gene on the bronch culture is negative Musculoskeletal: Decubitus ulcer prevention protocol Lines: Peripheral Prophylaxis: Lovenox, pantoprazole Quality Stroke Does the patient have a stroke diagnosis?: No VTE Prior VTE?: No VTE Risk Level:: Medical - moderate - high VTE Device Contraindication: N/A - Device Ordered VTE Drug Contraindication: N/A - Med Ordered
[2025-01-02 11:36] LABS: Glucose, Whole Blood 341 mg/dL (60-115)
[2025-01-02] MEDS: fentaNYL citrate/NS 1,000 MCG/100 ML PLAST..BAG 7.5 MCG IVCONT (11:40)
--- NOTE | 2025-01-02 13:04 | MHC.CM.PN ---
Pt continues care in ICU: on ventilatory support: lab testing essentially negative from 01/01: pt is a LTC resident of [facility] currently awaiting guardianship expansion to allow for code status change. CM to follow for finalization of d/c planning needs
--- NOTE | 2025-01-02 16:55 | HO.WOUND ---
Wound Consult: Initial 59yr old?female admitted to [facility] [place] on 12/17/24 - See progress notes and H&P for detailed history.? Wound consult placed for Nose - Device related injury.? Patient intubated at the time of my consultation and in ICU. Columella Etiology: Device Related Stage 2 Pressure Injury Measurements: 0.3cm x 0.2cm x 0.1cm Wound Bed: red moist wound bed Drainage / Odor: sanginous scant amount Edges: ? attached Jerica wound: intact ? No Induration, Fluctuance or Warmth noted Goals of Treatment: ? Hydrocolloid for protection and moist wound healing Columella with Hydrocolloid in place Recommendations: 1. Turn and Reposition every 2 hours and as needed for patient comfort.? Use pillows or wedges to support off loading positions. 2. Off Load all bony prominences with use of pillows and heel boots if needed.? Apply Preventative foams where needed. ? 3. Monitor for incontinence and moisture control, use barrier creams when needed for prevention and treatment. 4. Provide adequate and supplemental nutrition.? 5. Continue low air loss mattress. 6. When applicable maintain blood glucose levels per Providers order. Columella (Nose) - Cleanse with saline moist gauze, pat dry. Apply skin prep allow to dry, cover with cut to size hydrocolloid. Change every 3 days and PRN. Re-consult wound care Nurse for wound deterioration or wound changes.
--- NOTE | 2025-01-02 17:00 | PC.NURSE ---
Assumed care @ 0700? Neuro/Resp: Sedated/intubated. does not track, does not follow commands, Flaccid extremities. (passive ROM performed). Cardiac: Sinus Rhythm on tele,? on Levophed? gtt - per? MAY, MAP goal >65. GI: LBM 01/01 , +bowel sounds, OGT in place,? tolerating TF w/o signs of intolerance,? POC Q6hr, on sliding scale insulin per MAY. : Gordillo removed @ 1700, due to void at 2300. External catheter in place.? Skin: ?Impaired skin integrity - see skin assessment (repositioning maintained)? Temp: Afebrile Infectious: IV antibiotics? Lines: peripheral IVs
[2025-01-02 18:02] LABS: Glucose, Whole Blood 339 mg/dL (60-115)
[2025-01-02] MEDS: Furosemide 40 MG/4 ML VIAL IVPUSH (18:02)
[2025-01-02] MEDS: fentaNYL citrate/NS 1,000 MCG/100 ML PLAST..BAG 10 MCG IVCONT (22:09)
[2025-01-03] VITALS (37 sets, daily range): BP systolic 89–130; BP diastolic 56–79; PULSE 88–136; RESP 11–20; TEMP 35.1–38.5; O2SAT 90–97; BMI 25.6
[2025-01-03] MEDS: 0.9 % Sodium Chloride Flush 3 ML SYRINGE IVFLUSH ×4 (00:04→19:52)
[2025-01-03] MEDS: cefEPime HCl/D5W 2 GM/50 ML PIGGYBACK IV ×2 (00:05→13:11)
[2025-01-03 00:09] LABS: Glucose, Whole Blood 349 mg/dL (60-115)
[2025-01-03 05:05] LABS: Hemoglobin 9.2 g/dl (12.0-16.0); SCAN SMEAR FLAG 1
[2025-01-03 05:06] LABS: Venous Blood Gas Refer to POC result
[2025-01-03 05:07] LABS: Hematocrit 28.5 % (37.0-47.0); Imm Gran Abs Auto 0.30 X10*3/uL (0.00-0.03); Imm Gran Pct Auto 1.7 % (0.0-0.4); Lymphocytes Absolute Auto 0.5 X10*3/uL (1.2-4.9); MANUAL DIFF FLAG SCAN; Mean Corpuscular HGB Conc 32.3 g/dl (31.0-35.0); Mean Corpuscular Hemoglobin 22.7 pg (27.0-33.0); Mean Corpuscular Volume 70.4 fL (80.0-98.0); NRBC Abs Auto 0.030 X10*3/uL (0.0-0.012); NRBC Pct Auto 0.2 /100WBC (0.0-0.2); PLT CLUMP 1; Red Blood Count 4.05 X10*6/uL (4.20-5.50)
[2025-01-03 05:10] LABS: VBG HCO3 23 mmol/L (22-26)
[2025-01-03 05:22] LABS: Alanine Aminotransferase 19 U/L (0-31); Albumin Level 3.3 g/dL (3.5-5.0); Alkaline Phosphatase 90 U/L (39-117); Anion Gap 13 (12-20); Aspartate Amino Transferase 19 U/L (5-31); Blood Urea Nitrogen 45 mg/dL (9-16); Calcium 8.3 mg/dL (8.4-10.2); Carbon Dioxide 21 mmol/L (22-29); Chloride 107 mmol/L (96-108); Creatinine Clr Calc Pharmacy 57.2; Estimated Glomerular Filt Rate > 60; Magnesium 2.5 mg/dL (1.6-2.6); Potassium 4.8 mmol/L (3.3-5.1); Sodium 136 mmol/L (135-145); Total Protein 5.5 g/dL (6.5-8.0)
[2025-01-03 05:34] LABS: PLT ABN DIST 1; Platelet Count 188 X10*3/uL (160-400); White Blood Count 17.3 X10*3/uL (4.8-10.8)
[2025-01-03] MEDS: fentaNYL citrate/NS 1,000 MCG/100 ML PLAST..BAG 12.5 MCG IVCONT ×2 (05:38→14:36)
--- NOTE | 2025-01-03 06:12 | PC.NURSE ---
Upon initial assessment at 1900: Pt sedated on propofol and fentanyl infusions; RASS -4, titrated for vent synchrony. Afebrile. Predominately atrial tachycardia with frequent ectopy, occasional NSR noted, HR 90?140s. PRN Lopressor administered per MAR with transient effect. Levophed infusing and titrated to maintain MAP > 65. +1 BLE edema. ETT #7.5 secured at 20 cm at lip. Switched from PCV to PSV d/t high PIP and Vt; FiO2 titrated to maintain SpO2 > 92%. OGT taped and secured at 50 cm at lip; tube feed infusing at goal. No BM. Pt retaining urine s/p Gordillo removal; straight catheterization completed ?2 per protocol. Impaired skin integrity noted ? see wound/PI assessment. Repositioned q2 hrs with wedges/pillows; on air-loss mattress. Bed locked in lowest position, alarm on. See EMR/flowsheet for further details.
[2025-01-03 06:43] LABS: Iron 48 mcg/dL (30-160); Percent Iron Saturation 38 % (15-50); Total Iron Binding Capacity 128 mcg/dL (228-428); Unsaturated Iron Binding 80 ug/dL
[2025-01-03] MEDS: Albumin Human 25 % 100 ML 133.33 ML IV ×2 (07:33→08:23)
[2025-01-03 07:34] LABS: Quantiferon TB Gold Plus 1 NEGATIVE (NEGATIVE); TB Test (QFT) Mitogen -Nil 4.56 IU/mL; TB Test (QFT) Nil 0.01 IU/mL; TB Test (QFT) Plus TB1 -Nil 0.00 IU/mL; TB Test (QFT) Plus TB2 -Nil 0.00 IU/mL
[2025-01-03] MEDS: Chlorhexidine Gluc Oral Rinse 15 ML MOUTHWASH BUCCAL ×3 (08:23→19:48)
[2025-01-03] MEDS: Insulin Glargine,Hum.rec.anlog 100 UNIT/ML 10 ML VIAL 40 UNIT SUBCUT (08:24)
[2025-01-03] MEDS: Furosemide 40 MG/4 ML VIAL IVPUSH (08:25)
--- NOTE | 2025-01-03 08:41 | MHC.CLN ---
F/U PT REMAINS INTUBATED AND SEDATED CONTINUE GLUCERNA 1.2 TF AT MAX GOAL RATE OF 45ML/HR WITH 240ML FREE WATER FLUSHES Q 6 HRS PROVIDES 1296KCALS (1834KCALS WITH SEDATION; 30KCALS/KG), 65G PROTEIN (1.0G/KG), 1830ML TOTAL WATER FROM FORMULA AND FLUSHES (30ML/KG) MONITOR TOLERANCE AND LYTES
--- NOTE | 2025-01-03 08:59 | P.PNCC_ITS ---
Subjective Subjective Date of Service: 01/03/25 Interval History: No new events Remains on ventilator support Critical Care Time (minutes): 35 Physical Exam 2 Vital Signs: Vital Signs: Last Vital Signs Temp 98.5 F 01/03/25 07:00 Pulse 120 H 01/03/25 08:00 Resp 18 01/03/25 08:00 BP 96/62 01/03/25 08:00 Pulse Ox 91 L 01/03/25 08:00 O2 Del Method Mechanical Ventil ation 01/03/25 08:00 O2 Flow Rate 50 12/30/24 16:00 FiO2 80 01/03/25 08:00 Oxygen Flow Rate 60 12/30/24 11:13 BMI result Body Mass Index 25.6 General: Elderly lady in moderate acute distress, chronically ill appearing and tired appearing Nutritional Appearance: well nourished and overweight Eyes: appearance normal, both eyes and all related structures; Alignment and Position: alignment normal and position normal Neck: No lymphadenopathy, no thyromegaly Resp: bilateral air entry equal, bilateral crackles heard Cardio: Regular rate, regular rhythm; Heart sounds: S1 normal heart sound present and S2 normal heart sound present GI: soft, nontender, no guarding, no hepatosplenomegaly : bladder normal to inspection, bladder normal to palpation, no renal angle tenderness Skin: no rashes or lesions noted and elasticity normal Neuro: No focal deficits Objective Data Labs 01/03/25 04:55 01/03/25 04:55 Labs: Laboratory Results - last 24 hr 12/31/24 01/01/25 01/02/25 10:21 16:20 11:33 WBC RBC Hgb Hct MCV MCH MCHC RDW Plt Count MPV Immature Gran % (Auto) Neut % (Auto) Lymph % (Auto) [place] % (Auto) Eos % (Auto) Baso % (Auto) Lymph # (Auto) [place] # (Auto) Eos # (Auto) Baso # (Auto) Abs Immat Gran (auto) Absolute Neuts (auto) Absolute Nucleated RBC Nucleated RBC % (auto) Smear Tech's Comments VBG pH VBG pCO2 VBG pO2 VBG HCO3 VBG O2 Saturation VBG Base Excess Sodium Potassium Chloride Carbon Dioxide Anion Gap BUN Creatinine Estim Creat Clear Calc Estimated GFR POC Glucose 341 H Random Glucose Calcium Phosphorus Magnesium Iron TIBC % Saturation Unsat Iron Binding Total Bilirubin AST ALT Alkaline Phosphatase Total Protein Albumin Fld Lyme DNA (PCR) Lyme Disease DNA (PCR) NOT DETECTED TB Test (QFT) Gold Plus NEGATIVE TB Test (QFT) Nil 0.01 TB Test Mitogen - Nil 4.56 TB Test (QFT) +TB1 -NIL 0.00 TB Test (QFT) +TB2 -NIL 0.00 01/02/25 01/03/25 01/03/25 17:58 00:01 04:55 WBC 17.3 H RBC 4.05 L Hgb 9.2 L Hct 28.5 L MCV 70.4 L MCH 22.7 L MCHC 32.3 RDW 18.5 H Plt Count 188 MPV Not Reportable Immature Gran % (Auto) 1.7 H Neut % (Auto) 88.6 H Lymph % (Auto) 2.8 L [place] % (Auto) 6.8 Eos % (Auto) 0.0 Baso % (Auto) 0.1 Lymph # (Auto) 0.5 L [place] # (Auto) 1.2 Eos # (Auto) 0.0 Baso # (Auto) 0.0 Abs Immat Gran (auto) 0.30 H Absolute Neuts (auto) 15.3 H Absolute Nucleated RBC 0.030 H Nucleated RBC % (auto) 0.2 Smear Tech's Comments VERIFIED VBG pH VBG pCO2 VBG pO2 VBG HCO3 VBG O2 Saturation VBG Base Excess Sodium 136 Potassium 4.8 D Chloride 107 Carbon Dioxide 21 L Anion Gap 13 BUN 45 H Creatinine 0.94 Estim Creat Clear Calc 57.2 Estimated GFR > 60 POC Glucose 339 H 349 H Random Glucose 381 H* Calcium 8.3 L D Phosphorus 3.8 Magnesium 2.5 Iron 48 TIBC 128 L % Saturation 38 Unsat Iron Binding 80 Total Bilirubin 0.5 AST 19 ALT 19 Alkaline Phosphatase 90 Total Protein 5.5 L Albumin 3.3 L Fld Lyme DNA (PCR) Lyme Disease DNA (PCR) TB Test (QFT) Gold Plus TB Test (QFT) Nil TB Test Mitogen - Nil TB Test (QFT) +TB1 -NIL TB Test (QFT) +TB2 -NIL 01/03/25 05:04 WBC RBC Hgb Hct MCV MCH MCHC RDW Plt Count MPV Immature Gran % (Auto) Neut % (Auto) Lymph % (Auto) [place] % (Auto) Eos % (Auto) Baso % (Auto) Lymph # (Auto) [place] # (Auto) Eos # (Auto) Baso # (Auto) Abs Immat Gran (auto) Absolute Neuts (auto) Absolute Nucleated RBC Nucleated RBC % (auto) Smear Tech's Comments VBG pH 7.45 H VBG pCO2 33 VBG pO2 91 VBG HCO3 23 VBG O2 Saturation Not Reportable VBG Base Excess 0.0 Sodium Potassium Chloride Carbon Dioxide Anion Gap BUN Creatinine Estim Creat Clear Calc Estimated GFR POC Glucose Random Glucose Calcium Phosphorus Magnesium Iron TIBC % Saturation Unsat Iron Binding Total Bilirubin AST ALT Alkaline Phosphatase Total Protein Albumin Fld Lyme DNA (PCR) Lyme Disease DNA (PCR) TB Test (QFT) Gold Plus TB Test (QFT) Nil TB Test Mitogen - Nil TB Test (QFT) +TB1 -NIL TB Test (QFT) +TB2 -NIL Microbiology Microbiology Results: Microbiology 01/01/25 16:20 Cerebrospinal Fluid Gram Stain - Final 01/01/25 16:20 Cerebrospinal Fluid Fluid Description - Final 01/01/25 16:20 Cerebrospinal Fluid CSF Culture - Preliminary No growth after 1 day 12/31/24 11:58 Bronch Rul Gram Stain - Final 12/31/24 11:58 Bronch Rul - Final No growth after 2 days 12/31/24 11:58 Bronch Lll Gram Stain - Final 12/31/24 11:58 Bronch Lll - Final Yeast 12/31/24 05:23 Blood - Venous Blood Culture - Preliminary No growth after 48 hours. 12/22/24 20:59 Blood - Venous Blood Culture - Final No growth after 5 days. 12/22/24 02:49 Blood - Venous Blood Culture - Final No growth after 5 days. 12/22/24 02:49 Blood - Venous Blood Culture - Final No growth after 5 days. 12/19/24 18:25 Pericardial Fluid Gram Stain - Final 12/19/24 18:25 Pericardial Fluid Anaerobic Culture - Final NO GROWTH AFTER 5 DAYS 12/19/24 18:25 Pericardial Fluid Body Fluid Culture - Final No growth after 2 days 12/17/24 08:52 Blood - Venous Blood Culture - Final No growth after 5 days. 12/17/24 08:42 Blood - Venous Blood Culture - Final No growth after 5 days. Progress Note: A&P Assessment and plan (1) Schizoaffective disorder: Status: Acute (2) Cardiogenic shock: Status: Acute (3) Encephalopathy acute: Status: Acute (4) Acute respiratory failure with hypoxia: Status: Acute (5) ARDS (adult respiratory distress syndrome): Status: Acute Plan Neuro: Acute encephalopathy possibly due to metabolic encephalopathy Head CT scan upon admission negative for any intracranial pathology, chronic frontal lobe atrophy seen MRI of the brain showed chronic frontotemporal atrophy, possibly frontotemporal dementia is contributing to some of her psychiatric issues Lumbar puncture showed no cells, normal protein and glucose; rest of the workup remains pending. Has significant schizoaffective disorder and other psych issues at baseline. Continue quetiapine 400 mg at nighttime, risperidone 2 mg in PM. and 1 mg at AM. On propofol for sedation, as needed fentanyl for analgesia Close neurological status monitoring in the ICU every hour Cardiac: Cardiogenic Shock: Possibly secondary to positive pressure ventilation On Levophed support, titrate Levophed to keep map above 65 mm Hg pericardial effusion: s/p pericardial drain placed and 180cc fluid drained on 12/19/2024 exudative pericardial effusion with albumin 2.5, protein 3.6, 260 cells moslty epithelial cells; negative for malignancy. Respiratory: Acute hypoxemic respiratory failure due to interstitial lung disease versus pulmonary fibrosis on ventilator support On PRVC mode FiO2 incresaed to 80%, PEEP 5, TV 400, RR 20 Peak pressures and plateau pressures are under the curve Ventilator management bundle with head end elevation, aspiration precaution, chlorhexidine mouthwash, daily awakening trials, daily spontaneous breathing trials She received high-dose Solu-Medrol 250 mg TID for 3 days without much response in her respiratory efforts, currently on Solu-Medrol 40 mg b.i.d. Bronchoscopy showed 0 WBC count, 2 RBC, normal mucosa, no obstruction, no evidence of diffuse alveolar hemorrhage, no petechial rashes/ulcers/ erythema ruling against any viral infection GI: PPN turned off on tube feeds Renal: Renal function stable We will closely monitor I's and O's Avoid nephrotoxic medications Heme: Chronic anemia, closely monitor H&H, transfuse for hemoglobin less than 7 grams/deciliter Endocrine: Hypothyroidism: Continue levothyroxine Blood sugars under control Sliding scale insulin as needed Infectious disease: negative pancultures so far On empiric cefepime and Flagyl; will discontinue flagyl Continue empiric fluconazole given no much reponse to antibiotics and steroids Pending fungitel given pericardial effusion, vitiligo and unexplained lung disease will send a rheumatologic work up and will get pickard scans to rule out malignancy Pending KANIKA, RACHAEL level negative DS DNA, ANCA, anti Scl 70, anti Imelda, rheumatoid factor, spring coiler, anti douglas, Hepatitis panel, HIV. Pending Fungal staining on bronch, cytology, AFB staining on bronch. Musculoskeletal: Decubitus ulcer prevention protocol Lines: Peripheral Prophylaxis: Lovenox, pantoprazole TB QuantiFERON negative, MTP gene on the bronchioloalveolar lavage is also negative, very low risk for it to be tuberculosis given this to test being negative. We will take her off of isolation. Quality Stroke Does the patient have a stroke diagnosis?: No VTE Prior VTE?: No VTE Risk Level:: Medical - moderate - high VTE Device Contraindication: N/A - Device Ordered VTE Drug Contraindication: N/A - Med Ordered
--- NOTE | 2025-01-03 09:22 | P.CDIM_ITS ---
PROVIDER RESPONSE TEXT: To clarify, the appropriate diagnosis supported by the clinical indicators: Other (explain): unsure if patient has pressure ulcer QUERY TEXT: PHYSICIAN'S DOCUMENTATION REQUEST Date of Query: 01/03/2025 09:14 AM EDT Patient Name: Jennifer Ronquillo Admit Date: 12/17/2024 Dear Foster Roque MD, A review of the medical record indicates additional documentation may be needed. Please review below and update the documentation accordingly. Clinical Indicators: Wound care consultation note dated 01/02/25 - Pressure Injury (columella) nose, Stage 2, device related. Cleanse with saline moist gauze and pat dry. Apply skin prep allow to dry, cover with cut to size hydrocolloid. Change every 3 days and PRN. Based on the above, could you please provide further information regarding the ulcer/wound/injury: Pressure Injury (nose) Stage 2 Other specifics Other (explain) Clinically unable to determine (explain) Thank you, Tegan Frankel, CCS, CDIS Use of terms such as suspected, likely, concern for, or probable (associated with a specific diagnosis that is being evaluated, monitored, or treated as if it exists) are acceptable and can be coded in the inpatient setting, when documented at the time of discharge. Please use your independent medical judgment in providing your response. THIS QUERY IS PART OF THE PERMANENT MEDICAL RECORD
[2025-01-03 12:39] LABS: Glucose, Whole Blood 364 mg/dL (60-115)
[2025-01-03 17:29] LABS: Glucose, Whole Blood 296 mg/dL (60-115)
--- NOTE | 2025-01-03 19:25 | HE.ICUCC ---
Neuro: sedated and mechanichally ventilated, Propofol and Fentanyl infusing as per MAY Cardiac: SA, ST Freq PACs, PRN Metoprolol given as Ordered, Levophed gtt as per MAY Resp: Rhonchi TA, O2 decreased and FIO2 increased multiple times, brought back to 80% by end of shift, Resp Therapy lavaged and did CPT this shift, See vent assessment GI/: no void after 6hours, >1300mls noted, Gordillo placed, small BM noted this shift Endocrine: POC covered with Sliding scale Lispro Integumentary/Musculoskeletal: Pick foam on Coccyx C/D/I Infectious Disease: Isolation precautions removed neg results stated by provider
[2025-01-03] MEDS: fentaNYL citrate/NS 1,000 MCG/100 ML PLAST..BAG 15 MCG IVCONT (22:08)
[2025-01-03 22:48] LABS: Fungitell 1,3 beta glucan Positive
[2025-01-03 23:50] LABS: Glucose, Whole Blood 336 mg/dL (60-115)
[2025-01-04] VITALS (43 sets, daily range): BP systolic 75–117; BP diastolic 49–76; PULSE 95–138; RESP 10–19; TEMP 35.1–39.2; O2SAT 89–97; BMI 26.7
[2025-01-04] MEDS: cefEPime HCl/D5W 2 GM/50 ML PIGGYBACK IV ×2 (01:00→14:26)
[2025-01-04 03:13] LABS: Albumin 3.5 g/dL (3.6-5.1); Albumin, CSF 23.2 mg/dL (8.0-42.0); IgG, CSF 1.8 mg/dL (0.8-7.7)
[2025-01-04] MEDS: fentaNYL citrate/NS 1,000 MCG/100 ML PLAST..BAG 15 MCG IVCONT ×3 (04:43→19:04)
[2025-01-04 05:05] LABS: VBG HCO3 15 mmol/L (22-26); VBG O2 % Saturation 63.0 %
[2025-01-04 05:06] LABS: Venous Blood Gas Refer to POC result
[2025-01-04 05:06] LABS: Hematocrit 28.1 % (37.0-47.0); Hemoglobin 8.8 g/dl (12.0-16.0); Mean Corpuscular HGB Conc 31.3 g/dl (31.0-35.0); Mean Corpuscular Hemoglobin 23.0 pg (27.0-33.0); Mean Corpuscular Volume 73.4 fL (80.0-98.0); NRBC Abs Auto 0.070 X10*3/uL (0.0-0.012); NRBC Pct Auto 0.5 /100WBC (0.0-0.2); PLT CLUMP 1; Red Blood Count 3.83 X10*6/uL (4.20-5.50)
[2025-01-04 05:24] LABS: Alanine Aminotransferase 21 U/L (0-31); Albumin Level 3.4 g/dL (3.5-5.0); Alkaline Phosphatase 86 U/L (39-117); Anion Gap 16 (12-20); Aspartate Amino Transferase 20 U/L (5-31); Blood Urea Nitrogen 64 mg/dL (9-16); Calcium 8.9 mg/dL (8.4-10.2); Carbon Dioxide 21 mmol/L (22-29); Chloride 105 mmol/L (96-108); Creatinine Clr Calc Pharmacy 47.2; Estimated Glomerular Filt Rate 48; Magnesium 2.9 mg/dL (1.6-2.6); Potassium 5.7 mmol/L (3.3-5.1); Sodium 136 mmol/L (135-145); Total Protein 5.7 g/dL (6.5-8.0)
[2025-01-04 05:29] LABS: Band Neutrophils Percent 11 % (3-5); Lymphocytes Percent Manual 2 % (20-40); Metamyelocytes Percent 1 %; Monocytes Percent Manual 2 % (2-11); Neutrophils Percent Manual 84 % (45-73)
[2025-01-04 05:30] LABS: Microcytosis 2+ (15-30) /OIF; RBC Morphology NOTED
[2025-01-04 05:31] LABS: Large Platelet PRESENT
[2025-01-04 05:32] LABS: Ovalocytes 1+ (5-14) /OIF; Spherocytes 1+ (0-2) /OIF; Target Cells 1+ (5-14) /OIF
[2025-01-04 05:33] LABS: Hypochromasia 3+ (>30) /OIF; Tear Drop Cells 2+ (3-5) /OIF
[2025-01-04 05:34] LABS: Polychromasia 2+ (3-5) /OIF
[2025-01-04 05:35] LABS: Toxic Vacuolation PRESENT
[2025-01-04 05:36] LABS: Lymphocytes Absolute Manual 0.3 X10*3/uL (1.2-4.9); Metamyelocytes Absolute 0.1 X10*3/uL; Monocytes Absolute Manual 0.3 X10*3/uL (0.1-1.2); Neutrophils Absolute Manual 13.2 X10*3/uL (2.0-8.3); Platelet Count 179 X10*3/uL (160-400); White Blood Count 13.9 X10*3/uL (4.8-10.8)
[2025-01-04] MEDS: 0.9 % Sodium Chloride Flush 3 ML SYRINGE IVFLUSH ×3 (09:04→20:26)
[2025-01-04] MEDS: Chlorhexidine Gluc Oral Rinse 15 ML MOUTHWASH BUCCAL ×3 (09:05→20:26)
[2025-01-04] MEDS: Insulin Glargine,Hum.rec.anlog 100 UNIT/ML 10 ML VIAL 50 UNIT SUBCUT (09:05)
[2025-01-04 11:33] LABS: Glucose, Whole Blood 286 mg/dL (60-115)
--- NOTE | 2025-01-04 12:37 | PM.CCPN ---
Subjective Subjective Date of Service: 01/04/25 Interval History: Remains on ventilator support, no new events On Levophed for vasopressor support Switch to pressor support to pressure control this morning as she was wearing out Critical Care Time (minutes): 35 Physical Exam Vital Signs: Vital Signs: Last Vital Signs Temp 98.6 F 01/04/25 12:00 Pulse 119 H 01/04/25 12:00 Resp 19 01/04/25 12:00 BP 110/71 01/04/25 12:00 Pulse Ox 90 L 01/04/25 12:00 O2 Del Method Mechanical Ventil ation 01/04/25 12:00 O2 Flow Rate 50 12/30/24 16:00 FiO2 75 01/04/25 12:00 Oxygen Flow Rate 60 12/30/24 11:13 BMI result Body Mass Index 26.7 General: Elderly lady in CV acute distress, ill appearing and tired appearing Nutritional Appearance: well nourished and normal weight Eyes: appearance normal, both eyes and all related structures; Alignment and Position: alignment normal and position normal Neck: No lymphadenopathy, no thyromegaly Resp: bilateral air entry equal, bilateral crackles heard Cardio: Regular rate, regular rhythm; Heart sounds: S1 normal heart sound present and S2 normal heart sound present GI: soft, nontender, no guarding, no hepatosplenomegaly : bladder normal to inspection, bladder normal to palpation, no renal angle tenderness Skin: no rashes or lesions noted and elasticity normal Neuro: Sedated, no focal deficit Objective Data Labs 01/04/25 04:56 01/04/25 04:56 Labs: Laboratory Results - last 24 hr 12/31/24 01/01/25 01/03/25 10:19 17:35 12:36 WBC RBC Hgb Hct MCV MCH MCHC RDW Plt Count MPV Immature Gran % (Auto) Neut % (Auto) Lymph % (Auto) Morton % (Auto) Eos % (Auto) Baso % (Auto) Lymph # (Auto) Morton # (Auto) Eos # (Auto) Baso # (Auto) Abs Immat Gran (auto) Absolute Neuts (auto) Absolute Nucleated RBC Nucleated RBC % (auto) Neutrophils % (Manual) Band Neutrophils % Lymphocytes % (Manual) Monocytes % (Manual) Metamyelocytes % Abs Neuts (Manual) Lymphocytes # (Manual) Monocytes # (Manual) Metamyelocytes # Nucleated RBCs Toxic Vacuolation Platelet Estimate Large Platelets Plt Morphology Comment RBC Morphology Polychromasia Hypochromasia Microcytosis Spherocytes Target Cells Tear Drop Cells Ovalocytes VBG pH VBG pCO2 VBG pO2 VBG HCO3 VBG O2 Saturation VBG Base Excess Sodium Potassium Chloride Carbon Dioxide Anion Gap BUN Creatinine Estim Creat Clear Calc Estimated GFR POC Glucose 364 H* Random Glucose Calcium Phosphorus Magnesium Total Bilirubin AST ALT Alkaline Phosphatase Total Protein Albumin Albumin (Send Out) 3.5 L Angiotensin Convert Enz 42 CSF Albumin 23.2 CSF IgG Index 0.79 H CSF IgG Synthesis Rate 2.6 CSF/Serum IgG Index 1.8 IgG Index 345 L Beta-(1,3)-D-Glucan 102 H B-(1,3)-D-Glucan Intrp Positive A 01/03/25 01/03/25 01/04/25 17:25 23:46 04:56 WBC 13.9 H RBC 3.83 L Hgb 8.8 L Hct 28.1 L MCV 73.4 L MCH 23.0 L MCHC 31.3 RDW 19.6 H Plt Count 179 MPV Not Reportable Immature Gran % (Auto) Cancelled Neut % (Auto) Cancelled Lymph % (Auto) Cancelled Morton % (Auto) Cancelled Eos % (Auto) Cancelled Baso % (Auto) Cancelled Lymph # (Auto) Cancelled Morton # (Auto) Cancelled Eos # (Auto) Cancelled Baso # (Auto) Cancelled Abs Immat Gran (auto) Cancelled Absolute Neuts (auto) Cancelled Absolute Nucleated RBC 0.070 H Nucleated RBC % (auto) 0.5 H Neutrophils % (Manual) 84 H Band Neutrophils % 11 H Lymphocytes % (Manual) 2 L Monocytes % (Manual) 2 Metamyelocytes % 1 Abs Neuts (Manual) 13.2 H Lymphocytes # (Manual) 0.3 L Monocytes # (Manual) 0.3 Metamyelocytes # 0.1 Nucleated RBCs 2 H Toxic Vacuolation PRESENT Platelet Estimate NORMAL Large Platelets PRESENT Plt Morphology Comment NOTED RBC Morphology NOTED Polychromasia 2+ (3-5) Hypochromasia 3+ (>30) Microcytosis 2+ (15-30) Spherocytes 1+ (0-2) Target Cells 1+ (5-14) Tear Drop Cells 2+ (3-5) Ovalocytes 1+ (5-14) VBG pH VBG pCO2 VBG pO2 VBG HCO3 VBG O2 Saturation VBG Base Excess Sodium 136 Potassium 5.7 H Chloride 105 Carbon Dioxide 21 L Anion Gap 16 BUN 64 H Creatinine 1.14 Estim Creat Clear Calc 47.2 Estimated GFR 48 POC Glucose 296 H 336 H Random Glucose 393 H* Calcium 8.9 D Phosphorus 5.2 H Magnesium 2.9 H Total Bilirubin 0.4 AST 20 ALT 21 Alkaline Phosphatase 86 Total Protein 5.7 L Albumin 3.4 L Albumin (Send Out) Angiotensin Convert Enz CSF Albumin CSF IgG Index CSF IgG Synthesis Rate CSF/Serum IgG Index IgG Index Beta-(1,3)-D-Glucan B-(1,3)-D-Glucan Intrp 01/04/25 01/04/25 04:57 11:24 WBC RBC Hgb Hct MCV MCH MCHC RDW Plt Count MPV Immature Gran % (Auto) Neut % (Auto) Lymph % (Auto) Morton % (Auto) Eos % (Auto) Baso % (Auto) Lymph # (Auto) Morton # (Auto) Eos # (Auto) Baso # (Auto) Abs Immat Gran (auto) Absolute Neuts (auto) Absolute Nucleated RBC Nucleated RBC % (auto) Neutrophils % (Manual) Band Neutrophils % Lymphocytes % (Manual) Monocytes % (Manual) Metamyelocytes % Abs Neuts (Manual) Lymphocytes # (Manual) Monocytes # (Manual) Metamyelocytes # Nucleated RBCs Toxic Vacuolation Platelet Estimate Large Platelets Plt Morphology Comment RBC Morphology Polychromasia Hypochromasia Microcytosis Spherocytes Target Cells Tear Drop Cells Ovalocytes VBG pH 7.31 L VBG pCO2 30 VBG pO2 42 VBG HCO3 15 L VBG O2 Saturation 63.0 VBG Base Excess -9.1 Sodium Potassium Chloride Carbon Dioxide Anion Gap BUN Creatinine Estim Creat Clear Calc Estimated GFR POC Glucose 286 H Random Glucose Calcium Phosphorus Magnesium Total Bilirubin AST ALT Alkaline Phosphatase Total Protein Albumin Albumin (Send Out) Angiotensin Convert Enz CSF Albumin CSF IgG Index CSF IgG Synthesis Rate CSF/Serum IgG Index IgG Index Beta-(1,3)-D-Glucan B-(1,3)-D-Glucan Intrp Microbiology Microbiology Results: Microbiology 01/01/25 16:20 Cerebrospinal Fluid Gram Stain - Final 01/01/25 16:20 Cerebrospinal Fluid Fluid Description - Final 01/01/25 16:20 Cerebrospinal Fluid CSF Culture - Preliminary No growth after 2 days 12/31/24 11:58 Bronch Rul Gram Stain - Final 12/31/24 11:58 Bronch Rul - Final No growth after 2 days 12/31/24 11:58 Bronch Lll Gram Stain - Final 12/31/24 11:58 Bronch Lll - Final Yeast 12/31/24 05:23 Blood - Venous Blood Culture - Preliminary No growth after 48 hours. 12/22/24 20:59 Blood - Venous Blood Culture - Final No growth after 5 days. 12/22/24 02:49 Blood - Venous Blood Culture - Final No growth after 5 days. 12/22/24 02:49 Blood - Venous Blood Culture - Final No growth after 5 days. 12/19/24 18:25 Pericardial Fluid Gram Stain - Final 12/19/24 18:25 Pericardial Fluid Anaerobic Culture - Final NO GROWTH AFTER 5 DAYS 12/19/24 18:25 Pericardial Fluid Body Fluid Culture - Final No growth after 2 days 12/17/24 08:52 Blood - Venous Blood Culture - Final No growth after 5 days. 12/17/24 08:42 Blood - Venous Blood Culture - Final No growth after 5 days. Progress Note: A&P Assessment and plan (1) Schizoaffective disorder: Status: Acute (2) Cardiogenic shock: Status: Acute (3) Acute encephalopathy: Status: Acute (4) Acute respiratory failure with hypoxia: Status: Acute (5) ARDS (adult respiratory distress syndrome): Status: Acute Plan Neuro: Acute encephalopathy possibly due to metabolic encephalopathy Head CT scan upon admission negative for any intracranial pathology, chronic frontal lobe atrophy seen MRI of the brain showed chronic frontotemporal atrophy, possibly frontotemporal dementia is contributing to some of her psychiatric issues Lumbar puncture showed no cells, normal protein and glucose; rest of the workup remains pending. Has significant schizoaffective disorder and other psych issues at baseline. Continue quetiapine 400 mg at nighttime, risperidone 2 mg in PM. and 1 mg at AM. On propofol for sedation, as needed fentanyl for analgesia Close neurological status monitoring in the ICU every hour Cardiac: Cardiogenic Shock: Possibly secondary to positive pressure ventilation On Levophed support, titrate Levophed to keep map above 65 mm Hg pericardial effusion: s/p pericardial drain placed and 180cc fluid drained on 12/19/2024 exudative pericardial effusion with albumin 2.5, protein 3.6, 260 cells moslty epithelial cells; negative for malignancy. Respiratory: Acute hypoxemic respiratory failure due to interstitial lung disease versus pulmonary fibrosis on ventilator support On PC mode FiO2 80%, PEEP 8 Peak pressures and plateau pressures are under the curve Ventilator management bundle with head end elevation, aspiration precaution, chlorhexidine mouthwash, daily awakening trials, daily spontaneous breathing trials She received high-dose Solu-Medrol 250 mg TID for 3 days without much response in her respiratory efforts, currently on Solu-Medrol 40 mg b.i.d without much improvement in her respiratory status so we will take off of steroids. Bronchoscopy showed 0 WBC count, 2 RBC, normal mucosa, no obstruction, no evidence of diffuse alveolar hemorrhage, no petechial rashes/ulcers/ erythema ruling against any viral infection GI: PPN turned off on tube feeds Renal: Renal function stable We will closely monitor I's and O's Avoid nephrotoxic medications Heme: Chronic anemia, closely monitor H&H, transfuse for hemoglobin less than 7 grams/deciliter Endocrine: Hypothyroidism: Continue levothyroxine Blood sugars not under control due to steroids, we will discontinue steroids Or Lantus 40 units daily Sliding scale insulin as needed Infectious disease: negative pancultures so far On empiric cefepime and Flagyl; will discontinue flagyl Continue empiric fluconazole given no much reponse to antibiotics and steroids Pending fungitel given pericardial effusion, vitiligo and unexplained lung disease will send a rheumatologic work up and will get pickard scans to rule out malignancy Pending KANIKA, RACHAEL level negative DS DNA, ANCA, anti Scl 70, anti Imelda, rheumatoid factor, litigation coordinator, anti douglas, Hepatitis panel, HIV. Pending Fungal staining on bronch, cytology, AFB staining on bronch. Musculoskeletal: Decubitus ulcer prevention protocol Lines: Peripheral Prophylaxis: Lovenox, pantoprazole Patient has a court-appointed guardian, waiting on a court date to change in code status Quality Stroke Does the patient have a stroke diagnosis?: No VTE Prior VTE?: No VTE Risk Level:: Medical - moderate - high VTE Device Contraindication: N/A - Device Ordered VTE Drug Contraindication: N/A - Med Ordered
--- NOTE | 2025-01-04 14:27 | MHC.CM.PN ---
PT REMAINS IN ICU ON VENTILATORY/PRESSOR SUPPORT. RADHAMES SULTANA CLINICALLY UPDATED VIA [employer]. CM WILL CONTINUE TO FOLLOW.
[2025-01-04 17:47] LABS: Glucose, Whole Blood 398 mg/dL (60-115)
[2025-01-04 19:28] LABS: VDRL Qualitative CSF Nonreactive (Nonreactive)
[2025-01-04 23:51] LABS: Glucose, Whole Blood 394 mg/dL (60-115)
[2025-01-05] VITALS (49 sets, daily range): BP systolic 74–134; BP diastolic 36–73; PULSE 100–144; RESP 12–23; TEMP 35–38.1; O2SAT 88–95; BMI 28.0
[2025-01-05] MEDS: cefEPime HCl/D5W 2 GM/50 ML PIGGYBACK IV (00:57)
[2025-01-05] MEDS: fentaNYL citrate/NS 1,000 MCG/100 ML PLAST..BAG 15 MCG IVCONT ×4 (01:25→21:09)
[2025-01-05 04:36] LABS: VBG HCO3 15 mmol/L (22-26); VBG O2 % Saturation 59.0 %
[2025-01-05 04:39] LABS: Venous Blood Gas Refer to POC result
[2025-01-05 05:21] LABS: Hematocrit 30.7 % (37.0-47.0); Hemoglobin 9.6 g/dl (12.0-16.0); Mean Corpuscular HGB Conc 31.3 g/dl (31.0-35.0); Mean Corpuscular Hemoglobin 23.0 pg (27.0-33.0); Mean Corpuscular Volume 73.4 fL (80.0-98.0); NRBC Abs Auto 0.090 X10*3/uL (0.0-0.012); NRBC Pct Auto 0.7 /100WBC (0.0-0.2); PLT CLUMP 1; Red Blood Count 4.18 X10*6/uL (4.20-5.50)
--- NOTE | 2025-01-05 05:37 | HO.SKINPHOTO ---
Location: Coccyx Category: Pressure Stage: I Length: 2 Width: 1 Depth: cm
[2025-01-05 05:39] LABS: Alanine Aminotransferase 23 U/L (0-31); Albumin Level 2.9 g/dL (3.5-5.0); Alkaline Phosphatase 87 U/L (39-117); Anion Gap 16 (12-20); Aspartate Amino Transferase 22 U/L (5-31); Blood Urea Nitrogen 79 mg/dL (9-16); Calcium 8.4 mg/dL (8.4-10.2); Carbon Dioxide 24 mmol/L (22-29); Chloride 102 mmol/L (96-108); Creatinine Clr Calc Pharmacy 48.9; Estimated Glomerular Filt Rate 49; Magnesium 3.0 mg/dL (1.6-2.6); Potassium 5.4 mmol/L (3.3-5.1); Sodium 137 mmol/L (135-145); Total Protein 5.5 g/dL (6.5-8.0)
[2025-01-05 05:51] LABS: Band Neutrophils Percent 11 % (3-5); Lymphocytes Percent Manual 2 % (20-40); Microcytosis 2+ (15-30) /OIF; Monocytes Percent Manual 3 % (2-11); Neutrophils Percent Manual 84 % (45-73); RBC Morphology NOTED
[2025-01-05 05:53] LABS: Ovalocytes 1+ (5-14) /OIF; Schistocytes 1+ (0-2) /OIF; Target Cells 1+ (5-14) /OIF
[2025-01-05 05:54] LABS: Basophilic Stippling 2+ (3-5) /OIF; Polychromasia 2+ (3-5) /OIF; Tear Drop Cells 2+ (3-5) /OIF
[2025-01-05 05:55] LABS: Lymphocytes Absolute Manual 0.3 X10*3/uL (1.2-4.9); Monocytes Absolute Manual 0.4 X10*3/uL (0.1-1.2); Neutrophils Absolute Manual 12.0 X10*3/uL (2.0-8.3); White Blood Count 12.6 X10*3/uL (4.8-10.8)
[2025-01-05 05:56] LABS: Platelet Count 168 X10*3/uL (160-400)
[2025-01-05] MEDS: Insulin Glargine,Hum.rec.anlog 100 UNIT/ML 10 ML VIAL 50 UNIT SUBCUT (08:12)
[2025-01-05] MEDS: Chlorhexidine Gluc Oral Rinse 15 ML MOUTHWASH BUCCAL ×3 (08:13→21:08)
[2025-01-05] MEDS: 0.9 % Sodium Chloride Flush 3 ML SYRINGE IVFLUSH ×3 (08:17→23:34)
--- NOTE | 2025-01-05 09:54 | P.PNCC_ITS ---
Subjective Subjective Date of Service: 01/05/25 Interval History: Continues to be on ventilator support, same ventilator settings as yesterday Fungitell came back positive, fungal identification on bronch cultures pending Critical Care Time (minutes): 35 Physical Exam 2 Vital Signs: Vital Signs: Last Vital Signs Temp 99.3 F 01/05/25 08:53 Pulse 129 H 01/05/25 09:09 Resp 23 H 01/05/25 08:53 BP 96/45 L 01/05/25 09:09 Pulse Ox 92 01/05/25 08:53 O2 Del Method Mechanical Ventil ation 01/05/25 08:53 O2 Flow Rate 50 12/30/24 16:00 FiO2 75 01/05/25 08:53 Oxygen Flow Rate 60 12/30/24 11:13 BMI result Body Mass Index 28.0 General: Elderly lady in severe acute distress, ill appearing and tired appearing Nutritional Appearance: well nourished and normal weight Eyes: appearance normal, both eyes and all related structures; Alignment and Position: alignment normal and position normal Neck: No lymphadenopathy, no thyromegaly Resp: bilateral air entry equal, bilateral crackles heard Cardio: Regular rate, regular rhythm; Heart sounds: S1 normal heart sound present and S2 normal heart sound present GI: soft, nontender, no guarding, no hepatosplenomegaly : bladder normal to inspection, bladder normal to palpation, no renal angle tenderness Skin: no rashes or lesions noted and elasticity normal Neuro: Sedated, no focal deficits Objective Data Labs 01/05/25 04:31 01/05/25 04:31 Labs: Laboratory Results - last 24 hr 01/01/25 01/04/25 01/04/25 16:20 11:24 17:44 WBC RBC Hgb Hct MCV MCH MCHC RDW Plt Count Absolute Nucleated RBC Nucleated RBC % (auto) Neutrophils % (Manual) Band Neutrophils % Lymphocytes % (Manual) Monocytes % (Manual) Abs Neuts (Manual) Lymphocytes # (Manual) Monocytes # (Manual) Nucleated RBCs Platelet Estimate Plt Morphology Comment RBC Morphology Polychromasia Basophilic Stippling Microcytosis Target Cells Tear Drop Cells Ovalocytes Schistocytes VBG pH VBG pCO2 VBG pO2 VBG HCO3 VBG O2 Saturation VBG Base Excess Sodium Potassium Chloride Carbon Dioxide Anion Gap BUN Creatinine Estim Creat Clear Calc Estimated GFR POC Glucose 286 H 398 H* Random Glucose Calcium Phosphorus Magnesium Total Bilirubin AST ALT Alkaline Phosphatase Total Protein Albumin CSF VDRL Nonreactive 01/04/25 01/05/25 23:48 04:31 WBC 12.6 H RBC 4.18 L Hgb 9.6 L Hct 30.7 L MCV 73.4 L MCH 23.0 L MCHC 31.3 RDW 20.4 H Plt Count 168 Absolute Nucleated RBC 0.090 H Nucleated RBC % (auto) 0.7 H Neutrophils % (Manual) 84 H Band Neutrophils % 11 H Lymphocytes % (Manual) 2 L Monocytes % (Manual) 3 Abs Neuts (Manual) 12.0 H Lymphocytes # (Manual) 0.3 L Monocytes # (Manual) 0.4 Nucleated RBCs 2 H Platelet Estimate NORMAL Plt Morphology Comment NORMAL RBC Morphology NOTED Polychromasia 2+ (3-5) Basophilic Stippling 2+ (3-5) Microcytosis 2+ (15-30) Target Cells 1+ (5-14) Tear Drop Cells 2+ (3-5) Ovalocytes 1+ (5-14) Schistocytes 1+ (0-2) VBG pH 7.39 VBG pCO2 26 VBG pO2 40 VBG HCO3 15 L VBG O2 Saturation 59.0 VBG Base Excess -7.4 Sodium 137 Potassium 5.4 H Chloride 102 Carbon Dioxide 24 Anion Gap 16 BUN 79 H Creatinine 1.12 Estim Creat Clear Calc 48.9 Estimated GFR 49 POC Glucose 394 H* Random Glucose 414 H* Calcium 8.4 Phosphorus 3.9 Magnesium 3.0 H Total Bilirubin 0.4 AST 22 ALT 23 Alkaline Phosphatase 87 Total Protein 5.5 L Albumin 2.9 L CSF VDRL Microbiology Microbiology Results: Microbiology 01/01/25 16:20 Cerebrospinal Fluid Gram Stain - Final 01/01/25 16:20 Cerebrospinal Fluid Fluid Description - Final 01/01/25 16:20 Cerebrospinal Fluid CSF Culture - Final No growth after 3 days. 12/31/24 05:23 Blood - Venous Blood Culture - Final No growth after 5 days. 12/31/24 11:58 Bronch Rul Gram Stain - Final 12/31/24 11:58 Bronch Rul - Final No growth after 2 days 12/31/24 11:58 Bronch Lll Gram Stain - Final 12/31/24 11:58 Bronch Lll - Final Yeast 12/22/24 20:59 Blood - Venous Blood Culture - Final No growth after 5 days. 12/22/24 02:49 Blood - Venous Blood Culture - Final No growth after 5 days. 12/22/24 02:49 Blood - Venous Blood Culture - Final No growth after 5 days. 12/19/24 18:25 Pericardial Fluid Gram Stain - Final 12/19/24 18:25 Pericardial Fluid Anaerobic Culture - Final NO GROWTH AFTER 5 DAYS 12/19/24 18:25 Pericardial Fluid Body Fluid Culture - Final No growth after 2 days 12/17/24 08:52 Blood - Venous Blood Culture - Final No growth after 5 days. 12/17/24 08:42 Blood - Venous Blood Culture - Final No growth after 5 days. Progress Note: A&P Assessment and plan (1) Schizoaffective disorder: Status: Acute (2) Encephalopathy acute: Status: Acute (3) Acute respiratory failure with hypoxia: Status: Acute (4) Cardiogenic shock: Status: Acute Plan 59-year-old lady Jennifer Ronquillo with complex psych and medical history admitted to the hospital on 12/17/2024 due to altered sensorium and hypoxia. Since she had worsening respiratory failure she was transferred to ICU and was intubated between 12/21/2024 till 12/25/2024, eventually she was extubated and transferred to floor. Her respiratory status continued to worsen even at the floor, needing 100% FiO2 on a high-flow oxygen so reintubated on 12/30/2024. She had a CT angiogram chest done on 12/26/2024 which showed severe bilateral lung infiltrates possibly suggestive of interstitial lung disease versus pulmonary fibrosis. Fungitell positive, sputum cultures growing yeast, bronch fungal culture and identification pending. Neuro: Acute encephalopathy possibly due to metabolic encephalopathy Head CT scan upon admission negative for any intracranial pathology, chronic frontal lobe atrophy seen MRI of the brain showed chronic frontotemporal atrophy, possibly frontotemporal dementia is contributing to some of her psychiatric issues Lumbar puncture showed no cells, normal protein and glucose; IgG profiling negative, CSF VDRL negative, rest of the workup pending. Has significant schizoaffective disorder and other psych issues at baseline. Continue quetiapine 400 mg at nighttime, risperidone 2 mg in PM. and 1 mg at AM. On propofol for sedation, as needed fentanyl for analgesia Close neurological status monitoring in the ICU every hour Cardiac: Cardiogenic Shock: Possibly secondary to positive pressure ventilation On Levophed support, increasing requirements; titrate Levophed to keep map above 65 mm Hg pericardial effusion: s/p pericardial drain placed and 180cc fluid drained on 12/19/2024 exudative pericardial effusion with albumin 2.5, protein 3.6, 260 cells moslty epithelial cells; negative for malignancy. Respiratory: Acute hypoxemic respiratory failure due to interstitial lung disease versus pulmonary fibrosis on ventilator support On PC mode FiO2 75% %, PEEP 8, not a candidate for weaning trials given high oxygen requirement Peak pressures and plateau pressures are under the curve Ventilator management bundle with head end elevation, aspiration precaution, chlorhexidine mouthwash, daily awakening trials, daily spontaneous breathing trials She received high-dose Solu-Medrol 250 mg TID for 3 days without much response in her respiratory efforts, currently on Solu-Medrol 40 mg b.i.d without much improvement in her respiratory status so steroids was taken off yesterday. Bronchoscopy showed 0 WBC count, 2 RBC, normal mucosa, no obstruction, no evidence of diffuse alveolar hemorrhage, no petechial rashes/ulcers/ erythema ruling against any viral infection. Brown fungal staining pending GI: PPN turned off on tube feeds Renal: Renal function stable We will closely monitor I's and O's Avoid nephrotoxic medications Heme: Chronic anemia, closely monitor H&H, transfuse for hemoglobin less than 7 grams/deciliter Endocrine: Hypothyroidism: Continue levothyroxine Blood sugars not under control due to steroids which was discontinued yesterday On Lantus 50 units daily, hope the sugars will get better once the effects of steroids are gone. Sliding scale insulin as needed Infectious disease: negative pancultures so far On empiric cefepime and Flagyl; will discontinue flagyl Continue empiric fluconazole (since 12/31/2024) given no much reponse to antibiotics and steroids Fungitell positive, Pending Fungal staining on bronch. given pericardial effusion, vitiligo and unexplained lung disease rheumatologic work up was sent; will get pickard scans to rule out malignancy Pending KANIKA, RACHAEL level negative DS DNA, ANCA, anti Scl 70, anti Imelda, rheumatoid factor, etcher aircraft, anti douglas, Hepatitis panel, HIV. Musculoskeletal: Decubitus ulcer prevention protocol Lines: Peripheral Prophylaxis: Lovenox, pantoprazole Quality Stroke Does the patient have a stroke diagnosis?: No VTE Prior VTE?: No VTE Risk Level:: Medical - moderate - high VTE Device Contraindication: N/A - Device Ordered VTE Drug Contraindication: N/A - Med Ordered
[2025-01-05 11:48] LABS: Glucose, Whole Blood 368 mg/dL (60-115)
--- NOTE | 2025-01-05 16:08 | HO.SKINPHOTO ---
Location: Right cheek Category: MDPI Length: 2cm Width: 1cm Depth: 0 cm Et tube catalina changed approx 12:00. Skin inspected and change noted to right cheek. Left cheek skin intact.
--- NOTE | 2025-01-05 17:04 | PC.NURSE ---
assumed care of patient @ 0700. Pt remains intubated and sedated. patient's POC remains elevated with 1200 POC being 368. bridge painter helper aware and patient covered per sliding scale and lantus dosage increased to 50 units at 0900. Levophed titrated up to 0.23 to maintain MAP greater than 65. Provider made aware of patient's increased demand of pressor support, no additional pressors ordered at this time.
[2025-01-05 18:02] LABS: Glucose, Whole Blood 280 mg/dL (60-115)
--- NOTE | 2025-01-05 20:45 | W.PM.CCHP ---
Procedures Date of Service Date of Service: 01/05/25 Central Line Placement Left IJ: Consent for Procedure: Emergent-no informed consent obtained (no IV access multiple meds including propofol, fentanyl and levophed ) Time out performed: Yes Sterile Technique Used: Yes Patient placed on monitor/pulse ox: Yes MD prep: mask, gown, gloves and other (cap) Central line prep: Chlorhexidine scrub Local anesthesia used: other anesthetic (Rocuronium IVP 30 mg given as IJ collapsed with each breath, once access completed and line was secured 100mg of Sugammadex given for reversal as pt become transiently hypoxic) Ultrasound used for placement: Yes Central line lumen inserted: triple Post procedure: sutured in place, good blood return, all ports aspirated, flushed, capped and sterile dressing applied Post procedure x-ray: tip of catheter in good position and no pneumothorax seen Patient tolerated procedure: well and no complications Complications: none
[2025-01-05 23:43] LABS: Glucose, Whole Blood 236 mg/dL (60-115)
[2025-01-05] MEDS: Vasopressin 20 UNIT/100 ML INFUS..BTL 12 UNIT IVCONT (23:56)
[2025-01-06] VITALS (63 sets, daily range): BP systolic 81–144; BP diastolic 34–82; PULSE 83–130; RESP 13–24; TEMP 34.6–39.4; O2SAT 88–95; BMI 25.9
[2025-01-06] MEDS: Norepinephrine Bitartrate/NS 32 MG/250 ML PLAST..BAG 16.81 MG IVCONT (00:08)
[2025-01-06] MEDS: fentaNYL citrate/NS 1,000 MCG/100 ML PLAST..BAG 20 MCG IVCONT (02:45)
[2025-01-06 04:41] LABS: VBG HCO3 25 mmol/L (22-26); VBG O2 % Saturation 66.0 %
[2025-01-06 04:43] LABS: Venous Blood Gas Refer to POC result
[2025-01-06 04:46] LABS: Hematocrit 27.1 % (37.0-47.0); PLT ABN DIST 1
[2025-01-06 04:48] LABS: Hemoglobin 8.5 g/dl (12.0-16.0); Mean Corpuscular HGB Conc 31.4 g/dl (31.0-35.0); Mean Corpuscular Hemoglobin 23.1 pg (27.0-33.0); Mean Corpuscular Volume 73.6 fL (80.0-98.0); NRBC Abs Auto 0.610 X10*3/uL (0.0-0.012); NRBC Pct Auto 4.2 /100WBC (0.0-0.2); PLT CLUMP 1; Red Blood Count 3.68 X10*6/uL (4.20-5.50)
[2025-01-06 04:51] LABS: White Blood Count 14.6 X10*3/uL (4.8-10.8)
[2025-01-06 05:03] LABS: Alanine Aminotransferase 42 U/L (0-31); Albumin Level 2.5 g/dL (3.5-5.0); Alkaline Phosphatase 82 U/L (39-117); Anion Gap 14 (12-20); Aspartate Amino Transferase 31 U/L (5-31); Blood Urea Nitrogen 80 mg/dL (9-16); Calcium 8.1 mg/dL (8.4-10.2); Carbon Dioxide 27 mmol/L (22-29); Chloride 99 mmol/L (96-108); Creatinine Clr Calc Pharmacy 51.9; Estimated Glomerular Filt Rate 52; Magnesium 2.7 mg/dL (1.6-2.6); Potassium 5.2 mmol/L (3.3-5.1); Sodium 135 mmol/L (135-145); Total Protein 4.9 g/dL (6.5-8.0)
[2025-01-06 05:18] LABS: Band Neutrophils Percent 8 % (3-5); Lymphocytes Absolute Manual 1.3 X10*3/uL (1.2-4.9); Lymphocytes Percent Manual 9 % (20-40); Metamyelocytes Absolute 0.3 X10*3/uL; Metamyelocytes Percent 2 %; Monocytes Absolute Manual 0.3 X10*3/uL (0.1-1.2); Monocytes Percent Manual 2 % (2-11); Myelocytes Absolute 0.1 X10*/uL; Myelocytes Percent 1 %; Neutrophils Absolute Manual 12.4 X10*3/uL (2.0-8.3); Neutrophils Percent Manual 77 % (45-73); Promyelocytes Absolute 0.1 X10*3/uL; Promyelocytes Percent 1 %; RBC Morphology NOTED
[2025-01-06 05:19] LABS: Macrocytosis 2+ (15-30) /OIF
[2025-01-06 05:20] LABS: Large Platelet PRESENT; Ovalocytes 1+ (5-14) /OIF
[2025-01-06 05:21] LABS: Basophilic Stippling 1+ (0-2) /OIF; Dohle Bodies PRESENT; Polychromasia 2+ (3-5) /OIF; Spherocytes 1+ (0-2) /OIF; Target Cells 1+ (5-14) /OIF; Tear Drop Cells 1+ (0-2) /OIF
[2025-01-06 05:22] LABS: Platelet Count 208 X10*3/uL (160-400)
--- NOTE | 2025-01-06 05:36 | PC.NURSE ---
Upon initial assessment at 1900: Pt sedated on propofol and fentanyl gtts, titrated for vent synchrony. Tmax 103.0 ?F via core bladder probe; PRN acetaminophen given and ice bags applied to bilateral axilla with no effect; cooling blanket applied. ST on tele, HR up to 130s; PRN metoprolol given per MAY with transient effect. Levophed switched to 4? concentration and vasopressin added; titrated for MAP > 75 per DANIELLA Ricci. L IJ TLC inserted d/t increasing vasopressor requirements and poor PIV access. Pt received rocuronium 30 mg IVP for procedure?subsequently developed low Vt and SpO2 down to 76% on 100% FiO2; given sugammadex 100 mg IVP with good effect. CVC placement confirmed by pCXR. +2/3 BUE edema; peripheral pulses present via Doppler. Arterial line attempt by DANIELLA unsuccessful. ETT #7.5 @ 20 cm at lip; on PCV. OGT in place, secured @ 50 cm at lip; TF infusing at goal. No BM. Indwelling urinary catheter in place; UOP as charted. Impaired skin integrity?wound RN re-consulted for AM. Bed locked in lowest position, alarm on. Repositioned q2hrs with wedges/pillows. See EMR/flowsheet for further details.
[2025-01-06] MEDS: Albumin Human 25 % 100 ML 133.33 ML IV ×2 (05:45→06:40)
[2025-01-06] MEDS: Vasopressin 20 UNIT/100 ML INFUS..BTL 12 UNIT IVCONT ×3 (05:48→20:39)
[2025-01-06] MEDS: fentaNYL citrate/NS 1,000 MCG/100 ML PLAST..BAG 17.5 MCG IVCONT (07:49)
[2025-01-06] MEDS: Chlorhexidine Gluc Oral Rinse 15 ML MOUTHWASH BUCCAL ×3 (07:56→20:17)
[2025-01-06] MEDS: 0.9 % Sodium Chloride Flush 3 ML SYRINGE IVFLUSH ×2 (07:56→15:45)
[2025-01-06] MEDS: Insulin Glargine,Hum.rec.anlog 100 UNIT/ML 10 ML VIAL 60 UNIT SUBCUT (07:57)
--- NOTE | 2025-01-06 08:44 | P.PNCC_ITS ---
Subjective Subjective Date of Service: 01/06/25 Critical Care Time (minutes): 60 Physical Exam 2 Vital Signs: Vital Signs: Last Vital Signs Temp 99.9 F 01/06/25 07:00 Pulse 97 01/06/25 07:00 Resp 15 01/06/25 07:00 BP 129/59 L 01/06/25 07:00 Pulse Ox 90 L 01/06/25 07:35 O2 Del Method Mechanical Ventil ation 01/06/25 07:00 O2 Flow Rate 50 12/30/24 16:00 FiO2 75 01/06/25 08:12 Oxygen Flow Rate 60 12/30/24 11:13 BMI result Body Mass Index 25.9 Const: Other: intubated, sedated General: comfortable, no acute distress and well developed HEENT: Head: Yes normal to inspection, Yes normocephalic and Yes atraumatic Eyes: General: appearance normal, both eyes and all related structures Neck: Neck: Yes normal visual inspection, Yes full ROM, Yes no meningeal signs, Yes trachea midline and Yes supple Chest: Chest palpation & inspection: normal inspection of the chest Resp: Other: equal breath sounds bilterally; appreciable rhonchi throughout; no appreciable over rales, wheezing Cardio: Rate: regular rate Rhythm: regular rhythm GI: Inspection: Yes normal to inspection, No Abdominal wall edema and No distended Palpation (GI): Soft to palpation, not firm, nontender, no guarding and not rigid Skin: General skin exam: no rashes or lesions noted Neuro: General: tone normal and no meningeal signs Extrem: Other: appreciable anasarca General: Yes full ROM and Yes capillary refill normal Psych: Other: unable to assess Objective Data Labs 01/06/25 04:25 01/06/25 04:25 Labs: Laboratory Results - last 24 hr 01/05/25 01/05/25 01/05/25 11:44 17:59 23:38 WBC RBC Hgb Hct MCV MCH MCHC RDW Plt Count MPV Immature Gran % (Auto) Neut % (Auto) Lymph % (Auto) [place] % (Auto) Eos % (Auto) Baso % (Auto) Lymph # (Auto) [place] # (Auto) Eos # (Auto) Baso # (Auto) Abs Immat Gran (auto) Absolute Neuts (auto) Absolute Nucleated RBC Nucleated RBC % (auto) Neutrophils % (Manual) Band Neutrophils % Lymphocytes % (Manual) Monocytes % (Manual) Metamyelocytes % Myelocytes % Promyelocytes % Abs Neuts (Manual) Lymphocytes # (Manual) Monocytes # (Manual) Metamyelocytes # Myelocytes # Promyelocytes # Nucleated RBCs Dohle Bodies Platelet Estimate Large Platelets Plt Morphology Comment RBC Morphology Polychromasia Basophilic Stippling Macrocytosis Spherocytes Target Cells Tear Drop Cells Ovalocytes VBG pH VBG pCO2 VBG pO2 VBG HCO3 VBG O2 Saturation VBG Base Excess Sodium Potassium Chloride Carbon Dioxide Anion Gap BUN Creatinine Estim Creat Clear Calc Estimated GFR POC Glucose 368 H* 280 H 236 H Random Glucose Calcium Phosphorus Magnesium Total Bilirubin AST ALT Alkaline Phosphatase Total Protein Albumin 01/06/25 01/06/25 04:25 04:34 WBC 14.6 H RBC 3.68 L Hgb 8.5 L Hct 27.1 L MCV 73.6 L MCH 23.1 L MCHC 31.4 RDW 20.8 H Plt Count 208 MPV Not Reportable Immature Gran % (Auto) Cancelled Neut % (Auto) Cancelled Lymph % (Auto) Cancelled [place] % (Auto) Cancelled Eos % (Auto) Cancelled Baso % (Auto) Cancelled Lymph # (Auto) Cancelled [place] # (Auto) Cancelled Eos # (Auto) Cancelled Baso # (Auto) Cancelled Abs Immat Gran (auto) Cancelled Absolute Neuts (auto) Cancelled Absolute Nucleated RBC 0.610 H Nucleated RBC % (auto) 4.2 H Neutrophils % (Manual) 77 H Band Neutrophils % 8 H Lymphocytes % (Manual) 9 L Monocytes % (Manual) 2 Metamyelocytes % 2 Myelocytes % 1 Promyelocytes % 1 Abs Neuts (Manual) 12.4 H Lymphocytes # (Manual) 1.3 Monocytes # (Manual) 0.3 Metamyelocytes # 0.3 Myelocytes # 0.1 Promyelocytes # 0.1 Nucleated RBCs 4 H Dohle Bodies PRESENT Platelet Estimate NORMAL Large Platelets PRESENT Plt Morphology Comment NOTED RBC Morphology NOTED Polychromasia 2+ (3-5) Basophilic Stippling 1+ (0-2) Macrocytosis 2+ (15-30) Spherocytes 1+ (0-2) Target Cells 1+ (5-14) Tear Drop Cells 1+ (0-2) Ovalocytes 1+ (5-14) VBG pH 7.36 VBG pCO2 43 VBG pO2 44 VBG HCO3 25 VBG O2 Saturation 66.0 VBG Base Excess -0.4 Sodium 135 Potassium 5.2 H Chloride 99 Carbon Dioxide 27 Anion Gap 14 BUN 80 H Creatinine 1.08 Estim Creat Clear Calc 51.9 Estimated GFR 52 POC Glucose Random Glucose 285 H Calcium 8.1 L Phosphorus 3.8 Magnesium 2.7 H Total Bilirubin 0.3 AST 31 ALT 42 H Alkaline Phosphatase 82 Total Protein 4.9 L Albumin 2.5 L Microbiology Microbiology Results: Microbiology 12/31/24 11:58 Bronch Rul Direct Acid Fast Bacilli Smear - Final 12/31/24 11:58 Bronch Rul Acid Fast Bacilli Culture & Smear - Preliminary 01/01/25 16:20 Cerebrospinal Fluid Gram Stain - Final 01/01/25 16:20 Cerebrospinal Fluid Fluid Description - Final 01/01/25 16:20 Cerebrospinal Fluid CSF Culture - Final No growth after 3 days. 12/31/24 05:23 Blood - Venous Blood Culture - Final No growth after 5 days. 12/31/24 11:58 Bronch Rul Gram Stain - Final 12/31/24 11:58 Bronch Rul - Final No growth after 2 days 12/31/24 11:58 Bronch Lll Gram Stain - Final 12/31/24 11:58 Bronch Lll - Final Yeast 12/22/24 20:59 Blood - Venous Blood Culture - Final No growth after 5 days. 12/22/24 02:49 Blood - Venous Blood Culture - Final No growth after 5 days. 12/22/24 02:49 Blood - Venous Blood Culture - Final No growth after 5 days. 12/19/24 18:25 Pericardial Fluid Gram Stain - Final 12/19/24 18:25 Pericardial Fluid Anaerobic Culture - Final NO GROWTH AFTER 5 DAYS 12/19/24 18:25 Pericardial Fluid Body Fluid Culture - Final No growth after 2 days 12/17/24 08:52 Blood - Venous Blood Culture - Final No growth after 5 days. 12/17/24 08:42 Blood - Venous Blood Culture - Final No growth after 5 days. Progress Note: A&P Assessment and plan (1) Acute respiratory failure with hypoxia: Status: Acute (2) COPD (chronic obstructive pulmonary disease): Status: Acute (3) Shock: Status: Acute Plan Patient is a 59 Y F w/ schizoaffective disorder, hyperlipidemia, hypothyroidism, and COPD presenting to ED from [facility] on 12/[facility] w/ encephalopathy, found to be in acute hypoxic respiratory failure thought to be d/t pneumonia, admitted medicine; on 12/19, patient developed worsening acute hypoxic respiratory failure, found to have cardiac tamponade, s/p pericardial drain w/ IR; ICU course c/b worsening respiratory failure, intubated 12/21, extubated 12/24; on 12/30, patient w/ worsenign hypoxic respiratory failure, re- intubated N: intubated, sedated w/ propofol, fentanyl gtts, wean as tolerated; schizoaffective disorder, home antipsychotic regimen CV: shock, norepinephrine gtt, wean as tolerated; cardiac tamponade, resolved R: acute hypoxic respiratory failure, likely multi-factorial, d/t aspiration pneumonia, COPD; of note, IJ central venous catheter placed 01/05, w/ possible small R pneumothorax, though equal breath sounds bilaterally, otherwise clinically stable, to closely monitor, follow-up repeat chest x-ray 01/07 GI: tube feeds : acute renal insufficiency, to monitor renal indices/electrolytes H: no acute issues; chemical DVT prophylaxis ID: pneumonia, possible fungal pneumonia, empiric cefepime, fluconazole E: hypothyroidism, home levothyroxine P: schizoaffecitive disorder, home antipsychotic regimen S: assigned guardian Quality Stroke Does the patient have a stroke diagnosis?: No VTE Prior VTE?: No VTE Risk Level:: Medical - moderate - high VTE Device Contraindication: N/A - Device Ordered VTE Drug Contraindication: N/A - Med Ordered
[2025-01-06] MEDS: Albumin Human 25 % 50 ML 100 ML IV (09:26)
[2025-01-06] MEDS: Furosemide 20 MG/2 ML VIAL 10 MG IVPUSH ×2 (09:26→17:51)
[2025-01-06] MEDS: Calcium Gluconate/NaCl,Iso-Osm 1 GM/50 ML PLAST..BAG IV (09:27)
--- NOTE | 2025-01-06 10:00 | CA_ITS ---
Transthoracic Echocardiogram Amended Patient (Last, First, Middle): Jennifer Ronquillo, Gender: F Date of : 1965 Age: 59 Procedure Date: 01/06/2025 Procedure Type: Transthoracic Echocardiogram Location: ICU Height: 160.02 cm Weight: 66.23 kg BSA: 1.69 m2 Heart Rate: 90 bpm BP: 128 / 56 mmHg Clothes Model: SHABNAM Referring MD: Nuris Nelson MD Symptoms: Please Assess Function and ?Effusion Study Quality: Poor ECG Rhythm: Sinus Conclusions: - The left ventricular systolic function is normal. The calculated ejection fraction is 65% by biplane method. - There is no evidence of pericardial effusion. Findings Procedure Information Contrast agent, definity, is being given per protocol without apparent complications. The quality of the study was technically difficult. The study quality is limited by patients body habitus and the presence of a ventilator. Left Ventricle Normal left ventricular cavity size. The left ventricular systolic function is normal. The calculated ejection fraction is 65% by biplane method. There is no evidence of regional wall motion abnormalities. Venous The inferior vena cava is normal in size and collapses greater than 50% with inspiration. (on ventilator). Pericardium/Pleural There is no evidence of pericardial effusion. Prior Study Comparison No significant change compared to prior study dated: 12/23/2024. Measurements 2D Systolic Function EF 4C: 69.80 >55% EF 2C: 60.40 >55% EF BiP: 64.90 >55% Tricuspid Valve RA Press: 3.00 Updated in Other Vendor System with Status of Final Mario Mari MD electronically signed on 01/06/2025 10:56:18 AM with status of Final
[2025-01-06] MEDS: Hydrocortisone Sod Succ/PF 100 MG VIAL IVPUSH (12:27)
[2025-01-06 12:59] LABS: Glucose, Whole Blood 239 mg/dL (60-115)
[2025-01-06] MEDS: cefEPime HCl/D5W 2 GM/50 ML PIGGYBACK IV (13:09)
--- NOTE | 2025-01-06 13:59 | HO.WOUND ---
Wound Consult: Initial 59 yr old female admitted [place] [facility]- See progress notes and H&P for detailed history. Wound consult placed for buttock. Patient agreeable to assessment and photo documentation. Patient seen in the ICU, on two pressors, remains intubated. Nirmal-anal and gluteal sacrum- noted with irregular hypopimented area and circular bruising from lumbar puncture. Etiology: Nirmal anal region likely MASD with deep red area superficial epidermal peeling- Gluteal/coccyx area with small intact purple discoloration located in anatomical dimple - no consistent with pressure etiology- will follow up for assessment Wound Bed: nirmal-anal- intact deep red- coccyx intact purple Drainage / Odor: none Nirmal wound: ? No Induration, Fluctuance or Warmth noted Pain: none Goals of Treatment: ?triad/foam columella Etiology: stage 2 device related pressure injury - healing Measurements: 0.2cm x 0.2cm x 0.1cm Wound Bed: moist pink/red Drainage / Odor: none Nirmal wound: ? No Induration, Fluctuance or Warmth noted Goals of Treatment: ? hydrocolloid Recommendations: 1. Turn and Reposition every 2 hours and as needed for patient comfort. Use pillows or wedges to support off loading positions. 2. Off Load all bony prominences with use of pillows and heel boots if needed. Apply Preventative foams where needed. 3. Monitor for incontinence and moisture control, use barrier creams when needed for prevention and treatment. 4. Provide adequate and supplemental nutrition. 5. Order or Continue low air loss mattress. 6. When applicable maintain blood glucose levels per Providers order. Columella: cleanse with saline, pat dry, apply small strip of hydrocolloid Buttock/coccyx: Off Load Pressure with Q2 hr turns and use of pillows - Cleanse with PH balance spray or wipes, pat dry. ?Apply thin layer of Triad to wound bed. Do not remove all of paste between applications as this may cause further skin damage.? Cover with foam dressing to aid in off loading and protection from friction. Change every 3 days and PRN. Re-consult wound care Nurse for wound deterioration or wound changes.
--- NOTE | 2025-01-06 14:07 | MHC.CM.PN ---
Pt continues care in ICU: on vent: code status change hearing scheduled for 01/08 at 11am: ICU MD aware. Requesting DNR/DNI from court. Pt is a [facility] resident of [facility].
[2025-01-06] MEDS: fentaNYL citrate/NS 1,000 MCG/100 ML PLAST..BAG 15 MCG IVCONT ×2 (14:31→20:26)
[2025-01-06 15:08] LABS: Anti Nuclear Antibody Screen NEGATIVE (NEGATIVE)
[2025-01-06 16:49] LABS: Glucose, Whole Blood 308 mg/dL (60-115)
[2025-01-06] MEDS: Hydrocortisone Sod Succ/PF 100 MG VIAL 50 MG IVPUSH (17:51)
[2025-01-06] MEDS: Norepinephrine Bitartrate/NS 32 MG/250 ML PLAST..BAG 7.06 MG IVCONT (20:41)
[2025-01-07] VITALS (57 sets, daily range): BP systolic 109–148; BP diastolic 40–81; PULSE 68–150; RESP 12–128; TEMP 34.5–38.8; O2SAT 89–97; BMI 25.9
[2025-01-07 00:05] LABS: Glucose, Whole Blood 288 mg/dL (60-115)
[2025-01-07] MEDS: Hydrocortisone Sod Succ/PF 100 MG VIAL 50 MG IVPUSH ×5 (00:07→23:09)
[2025-01-07] MEDS: 0.9 % Sodium Chloride Flush 3 ML SYRINGE IVFLUSH ×2 (00:09→23:09)
[2025-01-07] MEDS: cefEPime HCl/D5W 2 GM/50 ML PIGGYBACK IV ×2 (01:13→14:37)
[2025-01-07] MEDS: fentaNYL citrate/NS 1,000 MCG/100 ML PLAST..BAG 15 MCG IVCONT (03:04)
[2025-01-07] MEDS: Vasopressin 20 UNIT/100 ML INFUS..BTL 12 UNIT IVCONT (04:17)
[2025-01-07 05:21] LABS: VBG HCO3 37 mmol/L (22-26)
[2025-01-07 05:26] LABS: Venous Blood Gas Refer to POC result
[2025-01-07 05:35] LABS: NRBC Abs Auto 0.120 X10*3/uL (0.0-0.012)
[2025-01-07 05:37] LABS: Mean Corpuscular HGB Conc 31.7 g/dl (31.0-35.0); Mean Corpuscular Hemoglobin 23.5 pg (27.0-33.0); Mean Corpuscular Volume 74.3 fL (80.0-98.0); Platelet Count 140 X10*3/uL (160-400); Red Blood Count 2.68 X10*6/uL (4.20-5.50); White Blood Count 10.0 X10*3/uL (4.8-10.8)
[2025-01-07 05:55] LABS: Glucose, Whole Blood 298 mg/dL (60-115)
[2025-01-07 06:05] LABS: Albumin Level 3.2 g/dL (3.5-5.0); Anion Gap 14 (12-20); Blood Urea Nitrogen 49 mg/dL (9-16); Calcium 8.4 mg/dL (8.4-10.2); Carbon Dioxide 31 mmol/L (22-29); Chloride 103 mmol/L (96-108); Creatinine Clr Calc Pharmacy 84.4; Estimated Glomerular Filt Rate > 60; Magnesium 2.2 mg/dL (1.6-2.6); Potassium 4.0 mmol/L (3.3-5.1); Sodium 144 mmol/L (135-145)
[2025-01-07 06:15] LABS: NRBC Pct Auto 1.2 /100WBC (0.0-0.2); PLT ABN DIST 1
[2025-01-07 06:19] LABS: Hematocrit 19.9 % (37.0-47.0); Hemoglobin 6.3 g/dl (12.0-16.0)
[2025-01-07 06:26] LABS: Band Neutrophils Percent 16 % (3-5); Lymphocytes Absolute Manual 0.4 X10*3/uL (1.2-4.9); Lymphocytes Percent Manual 4 % (20-40); Metamyelocytes Absolute 0.3 X10*3/uL; Metamyelocytes Percent 3 %; Monocytes Absolute Manual 0.3 X10*3/uL (0.1-1.2); Monocytes Percent Manual 3 % (2-11); Neutrophils Absolute Manual 9.0 X10*3/uL (2.0-8.3); Neutrophils Percent Manual 74 % (45-73)
[2025-01-07 06:27] LABS: Large Platelet PRESENT; Macrocytosis 1+ (5-14) /OIF; Microcytosis 1+ (5-14) /OIF; Ovalocytes 1+ (5-14) /OIF; RBC Morphology NOTED
[2025-01-07 06:28] LABS: Basophilic Stippling 1+ (0-2) /OIF; Burr Cells 1+ (0-2) /OIF; Hypochromasia 1+ (5-14) /OIF; Polychromasia 1+ (0-2) /OIF; Target Cells 1+ (5-14) /OIF
[2025-01-07 06:29] LABS: Spherocytes 1+ (0-2) /OIF
[2025-01-07 06:30] LABS: Stomatocytes 1+ (5-14) /OIF
[2025-01-07] MEDS: Albumin Human 25 % 50 ML 100 ML IV ×3 (06:41→10:05)
[2025-01-07 07:22] LABS: Mean Corpuscular HGB Conc 32.2 g/dl (31.0-35.0); Mean Corpuscular Hemoglobin 23.8 pg (27.0-33.0); Mean Corpuscular Volume 74.0 fL (80.0-98.0); NRBC Abs Auto 0.180 X10*3/uL (0.0-0.012); NRBC Pct Auto 1.8 /100WBC (0.0-0.2); Red Blood Count 2.69 X10*6/uL (4.20-5.50); White Blood Count 10.3 X10*3/uL (4.8-10.8)
[2025-01-07 07:25] LABS: Hematocrit 19.9 % (37.0-47.0); Hemoglobin 6.4 g/dl (12.0-16.0)
--- NOTE | 2025-01-07 07:44 | PC.NURSE ---
Nursing shift summary [id number] Patient continues to be sedated on propofol and fentanyl drips, titrated for vent synchrony. Patient continues to develop intermittent fevers with Tmax 101.3F via core bladder probe, Tylenol 650mg via OGT provided as documented and [facility] BREWER notified. Patient incontinent of 2 large soft brown large bowel movements, with a drop in H/H down to 6.3/19.9 and 6.4/19.9 consecutively. Pt continues to have episodes of sinus tach to atrial tach with HR bursting to 130-140s with nonsustained burst to 190. VISOR INSTALLER notified and 2.5 mg Lopressor IV x1, 2 doses of Albumin ordered. Type and screen ordered and drawn, no obvious signs of bleeding but stool samples ordered and to be collected with next bowel movement. TF infusing as goal via OGT with positive air placement auscultated. BP hemodynamically stable with Vasopressin infusing and Levophed being able to be titrated down as MAP being maintained above 65 as ordered, refer to MAR.Indwelling urinary catheer in place: UOP as charted. Bed locked in lowest position, alarm on. Pt repositioned q2hrs with wedges/pillows and skin care provided with each repositioning. See EMR/flowsheet for further details.
[2025-01-07 07:46] LABS: Platelet Count 144 X10*3/uL (160-400)
[2025-01-07] MEDS: Furosemide 20 MG/2 ML VIAL 10 MG IVPUSH (08:39)
[2025-01-07] MEDS: Chlorhexidine Gluc Oral Rinse 15 ML MOUTHWASH BUCCAL ×3 (08:39→20:19)
[2025-01-07] MEDS: Insulin Glargine,Hum.rec.anlog 100 UNIT/ML 10 ML VIAL 60 UNIT SUBCUT (08:40)
--- NOTE | 2025-01-07 09:01 | P.PNCC_ITS ---
Subjective Subjective Date of Service: 01/07/25 Interval History: interval development of pancytopenia, especially anemia, likely d/t GI bleed; otherwise continued critical and guarded clinical status Critical Care Time (minutes): 60 Physical Exam 2 Vital Signs: Vital Signs: Last Vital Signs Temp 101.9 F H 01/07/25 08:41 Pulse 119 H 01/07/25 08:54 Resp 20 01/07/25 08:41 BP 126/64 01/07/25 08:54 Pulse Ox 90 L 01/07/25 07:18 O2 Del Method Mechanical Ventil ation 01/07/25 07:00 O2 Flow Rate 50 12/30/24 16:00 FiO2 100 01/07/25 08:19 Oxygen Flow Rate 60 12/30/24 11:13 BMI result Body Mass Index 25.9 Const: Other: intubated, sedated; some appreciable spontaneous movements HEENT: Head: Yes normal to inspection, Yes normocephalic and Yes atraumatic Eyes: General: appearance normal, both eyes and all related structures Neck: Neck: Yes normal visual inspection, Yes full ROM, Yes no meningeal signs, Yes trachea midline and Yes supple Chest: Chest palpation & inspection: normal inspection of the chest Resp: Other: appreciable rales, rhonchi throughout; no appreciable overt wheezing Effort & Inspection: normal respiratory effort Cardio: Rate: tachycardic Rhythm: regular rhythm GI: Inspection: Yes normal to inspection, No Abdominal wall edema and No distended Palpation (GI): Soft to palpation, not firm, nontender, no guarding and not rigid Skin: General skin exam: no rashes or lesions noted Neuro: General: tone normal and no meningeal signs Extrem: Other: appreciable anasarca General: Yes normal to inspection, Yes full ROM and Yes capillary refill normal Psych: Other: unable to assess Objective Data Labs 01/07/25 06:47 01/07/25 05:00 Labs: Laboratory Results - last 24 hr 12/31/24 01/06/25 01/06/25 10:19 12:28 16:46 WBC RBC Hgb Hct MCV MCH MCHC RDW Plt Count MPV Immature Gran % (Auto) Neut % (Auto) Lymph % (Auto) [place] % (Auto) Eos % (Auto) Baso % (Auto) Lymph # (Auto) [place] # (Auto) Eos # (Auto) Baso # (Auto) Abs Immat Gran (auto) Absolute Neuts (auto) Absolute Nucleated RBC Nucleated RBC % (auto) Neutrophils % (Manual) Band Neutrophils % Lymphocytes % (Manual) Monocytes % (Manual) Metamyelocytes % Abs Neuts (Manual) Lymphocytes # (Manual) Monocytes # (Manual) Metamyelocytes # Nucleated RBCs Platelet Estimate Large Platelets Plt Morphology Comment RBC Morphology Polychromasia Hypochromasia Basophilic Stippling Microcytosis Macrocytosis Spherocytes Target Cells Ovalocytes Stomatocytes [place] Cells VBG pH VBG pCO2 VBG pO2 VBG HCO3 VBG O2 Saturation VBG Base Excess Sodium Potassium Chloride Carbon Dioxide Anion Gap BUN Creatinine Estim Creat Clear Calc Estimated GFR POC Glucose 239 H 308 H Random Glucose Calcium Phosphorus Magnesium Albumin KANIKA Screen NEGATIVE Blood Type Antibody Screen Crossmatch 01/07/25 01/07/25 01/07/25 00:00 05:00 05:16 WBC 10.0 RBC 2.68 L D Hgb 6.3 L* D Hct 19.9 L* D MCV 74.3 L MCH 23.5 L MCHC 31.7 RDW 20.7 H Plt Count 140 L D MPV Not Reportable Immature Gran % (Auto) Cancelled Neut % (Auto) Cancelled Lymph % (Auto) Cancelled [place] % (Auto) Cancelled Eos % (Auto) Cancelled Baso % (Auto) Cancelled Lymph # (Auto) Cancelled [place] # (Auto) Cancelled Eos # (Auto) Cancelled Baso # (Auto) Cancelled Abs Immat Gran (auto) Cancelled Absolute Neuts (auto) Cancelled Absolute Nucleated RBC 0.120 H Nucleated RBC % (auto) 1.2 H Neutrophils % (Manual) 74 H Band Neutrophils % 16 H Lymphocytes % (Manual) 4 L Monocytes % (Manual) 3 Metamyelocytes % 3 Abs Neuts (Manual) 9.0 H Lymphocytes # (Manual) 0.4 L Monocytes # (Manual) 0.3 Metamyelocytes # 0.3 Nucleated RBCs 1 H Platelet Estimate SLIGHTLY DECREASED Large Platelets PRESENT Plt Morphology Comment NOTED RBC Morphology NOTED Polychromasia 1+ (0-2) Hypochromasia 1+ (5-14) Basophilic Stippling 1+ (0-2) Microcytosis 1+ (5-14) Macrocytosis 1+ (5-14) Spherocytes 1+ (0-2) Target Cells 1+ (5-14) Ovalocytes 1+ (5-14) Stomatocytes 1+ (5-14) Billy Cells 1+ (0-2) VBG pH 7.48 H VBG pCO2 50 VBG pO2 66 VBG HCO3 37 H VBG O2 Saturation Not Reportable VBG Base Excess 13.1 Sodium 144 Potassium 4.0 D Chloride 103 Carbon Dioxide 31 H Anion Gap 14 BUN 49 H Creatinine 0.64 Estim Creat Clear Calc 84.4 Estimated GFR > 60 POC Glucose 288 H Random Glucose 293 H Calcium 8.4 Phosphorus 2.6 L Magnesium 2.2 Albumin 3.2 L KANIKA Screen Blood Type Antibody Screen Crossmatch 01/07/25 01/07/25 05:51 06:47 WBC 10.3 RBC 2.69 L Hgb 6.4 L* Hct 19.9 L* MCV 74.0 L MCH 23.8 L MCHC 32.2 RDW 20.4 H Plt Count 144 L MPV Not Reportable Immature Gran % (Auto) Neut % (Auto) Lymph % (Auto) [place] % (Auto) Eos % (Auto) Baso % (Auto) Lymph # (Auto) [place] # (Auto) Eos # (Auto) Baso # (Auto) Abs Immat Gran (auto) Absolute Neuts (auto) Absolute Nucleated RBC 0.180 H Nucleated RBC % (auto) 1.8 H Neutrophils % (Manual) Band Neutrophils % Lymphocytes % (Manual) Monocytes % (Manual) Metamyelocytes % Abs Neuts (Manual) Lymphocytes # (Manual) Monocytes # (Manual) Metamyelocytes # Nucleated RBCs Platelet Estimate Large Platelets Plt Morphology Comment RBC Morphology Polychromasia Hypochromasia Basophilic Stippling Microcytosis Macrocytosis Spherocytes Target Cells Ovalocytes Stomatocytes [place] Cells VBG pH VBG pCO2 VBG pO2 VBG HCO3 VBG O2 Saturation VBG Base Excess Sodium Potassium Chloride Carbon Dioxide Anion Gap BUN Creatinine Estim Creat Clear Calc Estimated GFR POC Glucose 298 H Random Glucose Calcium Phosphorus Magnesium Albumin KANIKA Screen Blood Type A Negative Antibody Screen NEGATIVE Crossmatch See Detail Microbiology Microbiology Results: Microbiology 12/31/24 11:58 Bronch Lll Fungal Identification - Preliminary Yeast Filamentous fungus 12/31/24 11:58 Bronch Rul Direct Acid Fast Bacilli Smear - Final 12/31/24 11:58 Bronch Rul Acid Fast Bacilli Culture & Smear - Preliminary 01/01/25 16:20 Cerebrospinal Fluid Gram Stain - Final 01/01/25 16:20 Cerebrospinal Fluid Fluid Description - Final 01/01/25 16:20 Cerebrospinal Fluid CSF Culture - Final No growth after 3 days. 12/31/24 05:23 Blood - Venous Blood Culture - Final No growth after 5 days. 12/31/24 11:58 Bronch Rul Gram Stain - Final 12/31/24 11:58 Bronch Rul - Final No growth after 2 days 12/31/24 11:58 Bronch Lll Gram Stain - Final 12/31/24 11:58 Bronch Lll - Final Yeast 12/22/24 20:59 Blood - Venous Blood Culture - Final No growth after 5 days. 12/22/24 02:49 Blood - Venous Blood Culture - Final No growth after 5 days. 12/22/24 02:49 Blood - Venous Blood Culture - Final No growth after 5 days. 12/19/24 18:25 Pericardial Fluid Gram Stain - Final 12/19/24 18:25 Pericardial Fluid Anaerobic Culture - Final NO GROWTH AFTER 5 DAYS 12/19/24 18:25 Pericardial Fluid Body Fluid Culture - Final No growth after 2 days 12/17/24 08:52 Blood - Venous Blood Culture - Final No growth after 5 days. 12/17/24 08:42 Blood - Venous Blood Culture - Final No growth after 5 days. Progress Note: A&P Assessment and plan (1) Acute respiratory failure with hypoxia: Status: Acute (2) ARDS (adult respiratory distress syndrome): Status: Acute (3) Pneumonia: Status: Acute (4) COPD (chronic obstructive pulmonary disease): Status: Acute (5) Shock: Status: Acute Plan Patient is a 59 Y F w/ schizoaffective disorder, hyperlipidemia, hypothyroidism, and COPD presenting to ED from long term facility on 12/17 w/ encephalopathy, found to be in acute hypoxic respiratory failure thought to be d/t pneumonia, admitted medicine; on 12/19, patient developed worsening acute hypoxic respiratory failure, found to have cardiac tamponade, s/p pericardial drain w/ IR; ICU course c/b worsening respiratory failure, intubated 12/21, extubated 12/24; on 12/30, patient w/ worsening hypoxic respiratory failure, re- intubated N: intubated, sedated w/ propofol, fentanyl gtts, wean as tolerated; schizoaffective disorder, home antipsychotic regimen CV: shock, norepinephrine gtt, wean as tolerated; cardiac tamponade, resolved R: acute hypoxic respiratory failure, likely multi-factorial, d/t aspiration pneumonia, COPD, intubated 12/21, extubated 12/24, re-intubated 12/30 w/ persistent severe acute hypoxic respiratory failure GI: tube feeds : acute renal insufficiency, improved, to monitor renal indices/electrolytes H: no acute issues; chemical DVT prophylaxis ID: pneumonia, possible fungal pneumonia, empiric cefepime, fluconazole E: hypothyroidism, home levothyroxine P: schizoaffecitive disorder, home antipsychotic regimen S: assigned guardian, plan for court hearing 01/08 for possible code status change to DNR/DNI Quality Stroke Does the patient have a stroke diagnosis?: No VTE Prior VTE?: No VTE Risk Level:: Medical - moderate - high VTE Device Contraindication: N/A - Device Ordered VTE Drug Contraindication: N/A - Med Ordered
[2025-01-07 09:57] LABS: OBS Int Ctl Valid YES; OBS Lot 0124; OBS1 POSITIVE (NEGATIVE)
[2025-01-07] MEDS: fentaNYL citrate/NS 1,000 MCG/100 ML PLAST..BAG 17.5 MCG IVCONT ×2 (10:04→15:05)
[2025-01-07] MEDS: Potassium Phosphate/NS 15 MMOL/250 ML PLAST..BAG 62.5 MMOL IV ×2 (10:04→16:21)
[2025-01-07] MEDS: Furosemide 20 MG/2 ML VIAL IVPUSH ×2 (10:44→18:02)
--- NOTE | 2025-01-07 11:15 | PC.NURSE ---
Addendum entered by Jason Desai RN 01/12/25 12:49: NEVENKAT on unit. orders placed and followed per . blood picked up and transported to OR. pt code status changed to INS[employer]OPE per MD. IV heparin bolus administered and extubated 5 min afterwards at 1245. drips stopped. REINALDO and this RN at bedside. Addendum entered by Jason Desai RN 01/11/25 16:25: UA obtained as ordered per and REINALDO Addendum entered by Jason Desai RN 01/11/25 16:24: pt's daughter at bedside, spoke w/ . Reinaldo on unit Addendum entered by Jason Desai RN 01/08/25 07:28: NEVENKAT contacted ref # [id number] Addendum entered by Jason Desai RN 01/07/25 14:48: per blood bank pt can only receive one unit of blood product at a time. Original Note: informed of pt's high residual TF from OGT and pt having an episode of vomitting. per hold TF. assessed pt, aware of pt's temp this AM and low H/H. pt HR went into atach 180s, md informed.
[2025-01-07 11:23] LABS: Glucose, Whole Blood 300 mg/dL (60-115)
[2025-01-07] MEDS: Fluconazole in NaCl,Iso-Osm 400 MG/200 ML PIGGYBACK 100 MG IV (13:08)
[2025-01-07 15:33] LABS: Anion Gap 9 (12-20); Blood Urea Nitrogen 40 mg/dL (9-16); Calcium 8.3 mg/dL (8.4-10.2); Carbon Dioxide 36 mmol/L (22-29); Chloride 105 mmol/L (96-108); Creatinine Clr Calc Pharmacy 88.6; Estimated Glomerular Filt Rate > 60; Magnesium 2.0 mg/dL (1.6-2.6); Potassium 3.2 mmol/L (3.3-5.1); Sodium 147 mmol/L (135-145)
[2025-01-07 15:34] LABS: Mean Corpuscular HGB Conc 33.3 g/dl (31.0-35.0); Mean Corpuscular Hemoglobin 25.5 pg (27.0-33.0); Mean Corpuscular Volume 76.6 fL (80.0-98.0); NRBC Abs Auto 0.160 X10*3/uL (0.0-0.012); PLT CLUMP 1; Red Blood Count 2.74 X10*6/uL (4.20-5.50)
[2025-01-07 15:53] LABS: NRBC Pct Auto 1.7 /100WBC (0.0-0.2)
[2025-01-07 15:59] LABS: Hematocrit 21.0 % (37.0-47.0); Hemoglobin 7.0 g/dl (12.0-16.0)
[2025-01-07 16:10] LABS: Band Neutrophils Percent 3 % (3-5); Lymphocytes Percent Manual 6 % (20-40); Metamyelocytes Percent 1 %; Monocytes Percent Manual 4 % (2-11); Neutrophils Percent Manual 86 % (45-73)
[2025-01-07] MEDS: Calcium Gluconate/NaCl,Iso-Osm 1 GM/50 ML PLAST..BAG IV (16:21)
[2025-01-07 16:25] LABS: Hypochromasia 1+ (5-14) /OIF
[2025-01-07 16:27] LABS: Schistocytes 2+ (3-5) /OIF
[2025-01-07 16:28] LABS: Large Platelet PRESENT
[2025-01-07 16:29] LABS: Basophilic Stippling 1+ (0-2) /OIF; RBC Morphology NOTED
[2025-01-07 16:30] LABS: Microcytosis 1+ (5-14) /OIF
[2025-01-07 16:31] LABS: Lymphocytes Absolute Manual 0.6 X10*3/uL (1.2-4.9); Metamyelocytes Absolute 0.1 X10*3/uL; Monocytes Absolute Manual 0.4 X10*3/uL (0.1-1.2); Neutrophils Absolute Manual 8.3 X10*3/uL (2.0-8.3); Platelet Count 114 X10*3/uL (160-400); White Blood Count 9.3 X10*3/uL (4.8-10.8)
--- NOTE | 2025-01-07 16:41 | PM.GICN ---
History of Present Illness Data of Consult Service Date: 01/07/25 Primary Care Provider: Caleb Mckeon DO HPI Reason for consult: rectal bleeding 59-year-old lady with IBS, HLD, OCD, COPD, hypothyroidism, PTSD, schizoaffective disorder, who I am seeing for assessment for anemia. Patient is currently intubated and in the ICU, receiving pressors Per nurse patient had stool occult pos blood testing but has rectal tube in situ with yellow or brown stool output. No melena noted. She has been noted to have anemia, had CTA today without any acute bleeding point seen. Initial admission was for hypoxia and AMS and subsequent pneumonia and pericardial effusion which required a pericardial window. she is on PPI, also receiving colchicine. She tested negative for flu and COVID, her sputum culture was also negative. Review of Systems Review of Systems: Yes unobtainable due to endotracheal tube and Unobtainable due to mental condition PMFSH Past Medical History Medical History (Updated 01/07/25 @ 17:14 by Tio Lopez MD) COPD (chronic obstructive pulmonary disease) Anxiety Hypothyroidism HLD (hyperlipidemia) UTI (urinary tract infection) PTSD (post-traumatic stress disorder) Diabetes Schizoaffective disorder Family History Pertinent family history: unable to obtain Social History Social History (Updated 12/17/24 @ 08:26 by Tia Blake DO) Household Members: None Housing: Apartment Do you presently have visiting nurse or other home services: Yes Comment: pt mcpherson a sitter Patient Tobacco Use Status: Current everyday Tobacco user Tobacco use type: Cigarette service: No Meds Allergies Allergy/AdvReac Type Severity Reaction Status Date / Time celecoxib Allergy Unknown Verified 12/17/24 08:10 fish derived (fish) Allergy Unknown Verified 12/17/24 08:10 gabapentin Allergy Unknown Verified 12/17/24 08:10 guanfacine Allergy Unknown Verified 12/17/24 08:10 ibuprofen Allergy Unknown Verified 12/17/24 08:10 olanzapine Allergy Unknown Verified 12/17/24 08:10 Penicillins Allergy Unknown Verified 12/17/24 08:10 prazosin Allergy Unknown Verified 12/17/24 08:10 Active Medications: Current Medications Chlorhexidine Gluconate (Chlorhexidine Gluc Oral Rinse 15 Ml Mouthwash) 15 ml BUCCAL TID [facility]EMANTH Last Admin: 01/07/25 14:36 Dose: 15 ml Colchicine (Colchicine 0.6 Mg Tablet) 0.6 mg G-TUBE DAILY HEMANTH Last Admin: 01/07/25 08:39 Dose: 0.6 mg Dextrose (Dextrose 50 % 25 Gm/50 Ml Syringe) 25 gm IVPUSH Q15M PRN; Protocol PRN Reason: per Hypoglycemia Standing Ord. Furosemide (Furosemide 20 Mg/2 Ml Vial) 20 mg IVPUSH BID@0900,1800 HEMAN[facility]; Protocol Last Admin: 01/07/25 10:44 Dose: 10 mg Glucose (Glucose Gel 15 Gm Gel..Gram.) 15 gm PO Q15M PRN; Protocol PRN Reason: per Hypoglycemia Standing Ord. Hydrocortisone Sodium Succinate (Hydrocortisone Sod Succ/Pf 100 Mg Vial) 50 mg IVPUSH Q6H [facility] Last Admin: 01/07/25 11:49 Dose: 50 mg Propofol (Diprivan) 1,000 mg in 100 mls @ 0 mls/hr IVCONT .Q0M [facility]; Protocol Last Admin: 01/07/25 13:48 Dose: 50 mcg/kg/min, 20.4 mls/hr Fentanyl (Sublimaze/Ns) 1,000 mcg in 100 mls @ 0 mls/hr IVCONT .Q0M [facility]; Protocol Last Admin: 01/07/25 15:05 Dose: 175 mcg/hr, 17.5 mls/hr Vasopressin (Vasostrict) 20 unit in 100 mls @ 12 mls/hr IVCONT .Q8H20M [facility]; Protocol Last Admin: 01/07/25 14:39 Dose: Not Given Norepinephrine Bitartrate (Levophed) 32 mg in 250 mls @ 0 mls/hr IVCONT .Q0M [facility]; Protocol Last Titration: 01/07/25 10:43 Dose: 0 mcg/kg/min, 0 mls/hr Fluconazole (Diflucan) 400 mg in 200 mls @ 100 mls/hr IV Q24H [facility] Last Infusion: 01/07/25 15:08 Dose: Infused Cefepime HCl (Maxipime) 2 gm in 50 mls @ 100 mls/hr IV Q12H [facility] Last Infusion: 01/07/25 15:08 Dose: Infused Acetaminophen (Ofirmev) 1,000 mg in 100 mls @ 400 mls/hr IV Q6H PRN PRN Reason: Fever Last Infusion: 01/07/25 10:42 Dose: Infused Potassium Phosphate (Kphos) 15 mmol in 250 mls @ 62.5 mls/hr IV ONCE ONE Stop: 01/07/25 19:56 Last Admin: 01/07/25 16:21 Dose: 62.5 mls/hr Calcium Gluconate (Calcium Gluconate) 1 gm in 50 mls @ 50 mls/hr IV ONCE ONE Stop: 01/07/25 16:56 Last Admin: 01/07/25 16:21 Dose: 50 mls/hr Insulin Glargine (Insulin Glargine,Hum.Rec.Anlog 100 Unit/Ml 10 Ml Vial) 40 unit SUBCUT BID [facility]EMANTH Insulin Human Lispro (Insulin Lispro 100 Unit/Ml 3 Ml Vial) 0 unit SUBCUT Q6H [facility]; Protocol Last Admin: 01/07/25 11:49 Dose: 8 unit Levothyroxine Sodium (Levothyroxine Sodium 100 Mcg/5 Ml Vial) 25 mcg IVPUSH DAILY@0600 [facility] Last Admin: 01/07/25 05:35 Dose: 25 mcg Pantoprazole Sodium (Pantoprazole Sodium 40 Mg/10 Ml Vial) 40 mg IVPUSH DAILY@0630 [facility] Last Admin: 01/07/25 05:35 Dose: 40 mg Polyethylene Glycol (Polyethylene Glycol 3350 17 Gm Powd.Pack) 17 gm PO DAILY PRN PRN Reason: Constipation Last Admin: 01/06/25 13:00 Dose: 17 gm Quetiapine Fumarate (Quetiapine Fumarate 400 Mg Tablet) 400 mg PO BEDTIME [facility] Last Admin: 01/06/25 20:17 Dose: 400 mg Risperidone (Risperidone 1 Mg Tablet) 1 mg G-TUBE DAILY [facility] Last Admin: 01/07/25 08:39 Dose: 1 mg Risperidone (Risperidone 2 Mg Tablet) 2 mg G-TUBE BEDTIME [facility] Last Admin: 01/06/25 20:17 Dose: 2 mg Sodium Chloride (0.9 % Sodium Chloride Flush 3 Ml Syringe) 3 ml IVFLUSH QSHIFT [facility] Last Admin: 01/07/25 14:33 Dose: Not Given Home Medications ?Medication ?Instructions ?Recorded ?Confirmed ?Last Taken ?Type acetaminophen 325 mg tablet 650 mg PO Q6H PRN Fever/Pain 12/17/24 12/17/24 Unknown History albuterol sulfate 90 mcg/actuation 1 puff inhalation Q4H PRN 12/17/24 12/17/24 Unknown History aerosol inhaler Shortness Of Breath Or Wheezing ascorbic acid (vitamin C) 500 mg 500 mg PO DAILY 12/17/24 12/17/24 Unknown History tablet benzocaine 15 mg-menthol 3.6 mg 1 kemi mucous membrane Q2H PRN Sore 12/17/24 12/17/24 Unknown History lozenges (Cepacol Sore Throat Throat (benzocaine-menthol)) calcium carbonate (Tums E-X) 600 mg PO Q4H PRN Acid Reflux 12/17/24 12/17/24 Unknown History cholecalciferol (vitamin D3) 25 25 mcg PO DAILY 12/17/24 12/17/24 Unknown History mcg (1,000 unit) tablet (Vitamin D3) cyclobenzaprine 10 mg tablet 10 mg PO DAILY PRN Sciatica 12/17/24 12/17/24 Unknown History diphenhydramine HCl 25 mg tablet 25 mg PO Q8H PRN Allergy Symptoms 12/17/24 12/17/24 Unknown History (Benadryl Allergy) ferrous sulfate 325 mg (65 mg 325 mg PO DAILY 12/17/24 12/17/24 Unknown History iron) tablet fluticasone 250 mcg-salmeterol 50 1 inh inhalation BID 12/17/24 12/17/24 Unknown History mcg/dose blistr powdr for inhalation (Advair Diskus) fluticasone furoate 100 1 inh inhalation DAILY 12/17/24 12/17/24 Unknown History mcg-vilanterol 25 mcg/dose inhalation powder (Breo Ellipta) glucagon HCl 1 mg solution for 1 mg subcut Q15M PRN Hypoglycemia 12/17/24 12/17/24 Unknown History injection (Glucagon (HCl) Emergency Kit) hydroxyzine HCl 25 mg tablet 25 mg PO DAILY 12/17/24 12/17/24 Unknown History hydroxyzine HCl 50 mg tablet 50 mg PO DAILY 12/17/24 12/17/24 Unknown History hydroxyzine HCl 50 mg tablet 100 mg PO BID 12/17/24 12/17/24 Unknown History insulin lispro 100 unit/mL See Protocol subcut TUTHSA 12/17/24 12/17/24 Unknown History subcutaneous solution (Humalog U-100 Insulin) levothyroxine 50 mcg tablet 50 mcg PO DAILY@0600 12/17/24 12/17/24 Unknown History lidocaine 4 % topical patch 1 patch topical DAILY 12/17/24 12/17/24 Unknown History lidocaine HCl 2 % mucosal solution 15 ml mucous membrane Q6H PRN Gum 12/17/24 12/17/24 Unknown History (Lidocaine Viscous) Pain/Oral Ulcers loperamide 2 mg tablet 2 mg PO DAILY PRN Loose Stool 12/17/24 12/17/24 Unknown History loratadine 10 mg tablet 10 mg PO DAILY PRN Post Nasal Drip 12/17/24 12/17/24 Unknown History melatonin 1 mg tablet 1 mg PO BEDTIME 12/17/24 12/17/24 Unknown History melatonin 3 mg tablet 3 mg PO BEDTIME 12/17/24 12/17/24 Unknown History metformin 1,000 mg tablet 1,000 mg PO BID 12/17/24 12/17/24 Unknown History mirtazapine 15 mg tablet 7.5 mg PO BEDTIME 12/17/24 12/17/24 Unknown History naloxone 4 mg/actuation nasal 1 spray intranasal Q3M PRN Opioid 12/17/24 12/17/24 Unknown History spray (Narcan) Overdose nystatin 100,000 unit/gram topical 1 appl topical TID 12/17/24 12/17/24 Unknown History powder ondansetron HCl 4 mg tablet 4 mg PO Q6H PRN Nausea And Vomiting 12/17/24 12/17/24 Unknown History pantoprazole 40 mg tablet,delayed 40 mg PO DAILY@0630 12/17/24 12/17/24 Unknown History release polyethylene glycol 3350 17 17 g PO DAILY 12/17/24 12/17/24 Unknown History gram/dose oral powder (Miralax) quetiapine 400 mg tablet (Seroquel) 400 mg PO BEDTIME 12/17/24 12/17/24 Unknown History risperidone 1 mg tablet 1 mg PO DAILY 12/17/24 12/17/24 Unknown History risperidone 2 mg tablet (Risperdal) 2 mg PO BEDTIME 12/17/24 12/17/24 Unknown History ropinirole 0.25 mg tablet 0.25 mg PO DAILY 12/17/24 12/17/24 Unknown History rosuvastatin 10 mg tablet 10 mg PO BEDTIME 12/17/24 12/17/24 Unknown History sennosides 8.6 mg tablet (senna) 8.6 mg PO DAILY PRN Constipation 12/17/24 12/17/24 Unknown History sitagliptin phosphate 50 mg tablet 50 mg PO DAILY 12/17/24 12/17/24 Unknown History (Januvia) sodium phosphates 19 gram-7 118 ml [place] DAILY PRN Constipation 12/17/24 12/17/24 Unknown History gram/118 mL enema (Fleet Enema) tramadol 50 mg tablet 50 mg PO TID 12/17/24 12/17/24 Unknown History trazodone 100 mg tablet 100 mg PO BEDTIME 12/17/24 12/17/24 Unknown History triamcinolone acetonide 55 mcg 2 spray intranasal DAILY 12/17/24 12/17/24 Unknown History nasal spray aerosol (Nasacort) Physical Exam Exam: Exam: EXAM: GENERAL: The patient is frail VITAL SIGNS:see workflow HEENT: Nonicteric sclerae, PERRLA, EOMI. Oropharynx clear. Moist mucous membranes. Conjunctivae appear well perfused. No thyroid mass. CHEST: Chest wall is nontender. HEART: Regular rate and rhythm without murmurs. LUNGS: Clear to auscultation bilaterally. ABDOMEN: Soft, positive bowel sounds, nontender, no organomegaly.no flank tenderness SKIN: No rash, no excessive bruising, petechiae, or purpura. NEUROLOGIC: sedated Psych: unable to obtain Vital Signs: Vital Signs: Last Vital Signs Temp 97.7 F 01/07/25 16:00 Pulse 103 H 01/07/25 16:00 Resp 128 H 01/07/25 16:00 BP 119/56 L 01/07/25 16:00 Pulse Ox 96 01/07/25 16:00 O2 Del Method Mechanical Ventil ation 01/07/25 16:00 O2 Flow Rate 50 12/30/24 16:00 FiO2 100 01/07/25 16:00 Oxygen Flow Rate 60 12/30/24 11:13 BMI result Body Mass Index 25.9 Results Labs 01/07/25 15:10 01/07/25 15:10 Labs: Short CBC 01/07/25 01/07/25 01/07/25 Range/Units 05:00 06:47 15:10 WBC 10.0 10.3 9.3 (4.8-10.8) X10*3/uL Hgb 6.3 L* D 6.4 L* 7.0 L* (12.0-16.0) g/dl Hct 19.9 L* D 19.9 L* 21.0 L* (37.0-47.0) % Plt Count 140 L D 144 L 114 L (160-400) X10*3/uL BMP 01/07/25 01/07/25 05:00 15:10 Sodium 144 147 H Potassium 4.0 D 3.2 L Chloride 103 105 Carbon Dioxide 31 H 36 H BUN 49 H 40 H Creatinine 0.64 0.61 Calcium 8.4 8.3 L Liver Function 01/07/25 Range/Units 05:00 Albumin 3.2 L (3.5-5.0) g/dL Microbiology Microbiology Results: Microbiology 12/31/24 11:58 Bronch Lll Fungal Identification - Preliminary Yeast Filamentous fungus 12/31/24 11:58 Bronch Rul Direct Acid Fast Bacilli Smear - Final 12/31/24 11:58 Bronch Rul Acid Fast Bacilli Culture & Smear - Preliminary 01/01/25 16:20 Cerebrospinal Fluid Gram Stain - Final 01/01/25 16:20 Cerebrospinal Fluid Fluid Description - Final 01/01/25 16:20 Cerebrospinal Fluid CSF Culture - Final No growth after 3 days. 12/31/24 05:23 Blood - Venous Blood Culture - Final No growth after 5 days. 12/31/24 11:58 Bronch Rul Gram Stain - Final 12/31/24 11:58 Bronch Rul - Final No growth after 2 days 12/31/24 11:58 Bronch Lll Gram Stain - Final 12/31/24 11:58 Bronch Lll - Final Yeast 12/22/24 20:59 Blood - Venous Blood Culture - Final No growth after 5 days. 12/22/24 02:49 Blood - Venous Blood Culture - Final No growth after 5 days. 12/22/24 02:49 Blood - Venous Blood Culture - Final No growth after 5 days. 12/19/24 18:25 Pericardial Fluid Gram Stain - Final 12/19/24 18:25 Pericardial Fluid Anaerobic Culture - Final NO GROWTH AFTER 5 DAYS 12/19/24 18:25 Pericardial Fluid Body Fluid Culture - Final No growth after 2 days 12/17/24 08:52 Blood - Venous Blood Culture - Final No growth after 5 days. 12/17/24 08:42 Blood - Venous Blood Culture - Final No growth after [address] scan - abdomen: Attestation: I personally reviewed and interpreted this imaging study as follows: (thickened stomach and right colon, hiatal hernia ) Assessment and Plan (1) Anemia: Qualifiers: Anemia type: unspecified type Qualified Code(s): D64.9 - Anemia, unspecified Status: Acute Plan 1/ Anemia, in setting of critical care illness, no acute bleeding on CTA or overt GIB but HGB and plts going down, schistocytes on peripheral smear may have bone marow failure, drug induced bone marrow injury, TTP, hemolytic anemia, HIT RECS: 1/ consider hemolysis screen and levi test 2/ if ongoing anemia and neg hemolyis labs or overt GIB then can consider EGD and possible colonoscopy Procedures Date of Service Date of Service: 01/07/25
[2025-01-07 17:38] LABS: Glucose, Whole Blood 126 mg/dL (60-115)
[2025-01-07] MEDS: fentaNYL citrate/NS 1,000 MCG/100 ML PLAST..BAG 20 MCG IVCONT (20:39)
[2025-01-07 23:19] LABS: Glucose, Whole Blood 100 mg/dL (60-115)
[2025-01-07 23:36] LABS: Hematocrit 27.0 % (37.0-47.0); Hemoglobin 9.0 g/dl (12.0-16.0); Mean Corpuscular HGB Conc 33.3 g/dl (31.0-35.0); Mean Corpuscular Hemoglobin 26.7 pg (27.0-33.0); Mean Corpuscular Volume 80.1 fL (80.0-98.0); NRBC Abs Auto 0.230 X10*3/uL (0.0-0.012); Platelet Count 151 X10*3/uL (160-400); Red Blood Count 3.37 X10*6/uL (4.20-5.50); White Blood Count 10.7 X10*3/uL (4.8-10.8)
[2025-01-07 23:37] LABS: NRBC Pct Auto 2.1 /100WBC (0.0-0.2)
[2025-01-07 23:44] LABS: Anion Gap 11 (12-20); Blood Urea Nitrogen 34 mg/dL (9-16); Calcium 8.5 mg/dL (8.4-10.2); Carbon Dioxide 36 mmol/L (22-29); Chloride 108 mmol/L (96-108); Creatinine Clr Calc Pharmacy 98.3; Estimated Glomerular Filt Rate > 60; Potassium 3.2 mmol/L (3.3-5.1); Sodium 152 mmol/L (135-145)
[2025-01-08] VITALS (34 sets, daily range): BP systolic 103–156; BP diastolic 54–101; PULSE 76–138; RESP 6–25; TEMP 34.5–38.6; O2SAT 9–96; BMI 26.4
[2025-01-08] MEDS: Potassium Chloride/H20 40 MEQ/100 ML PIGGYBACK 100 MEQ IV ×2 (00:08→20:43)
[2025-01-08] MEDS: fentaNYL citrate/NS 1,000 MCG/100 ML PLAST..BAG 20 MCG IVCONT ×5 (01:52→21:39)
[2025-01-08] MEDS: cefEPime HCl/D5W 2 GM/50 ML PIGGYBACK IV ×2 (01:53→14:16)
[2025-01-08] MEDS: Hydrocortisone Sod Succ/PF 100 MG VIAL 50 MG IVPUSH ×4 (05:36→23:51)
[2025-01-08 05:45] LABS: Glucose, Whole Blood 73 mg/dL (60-115)
[2025-01-08 06:07] LABS: VBG HCO3 42 mmol/L (22-26); VBG O2 % Saturation 87.0 %
[2025-01-08 06:18] LABS: MANUAL DIFF FLAG NO
[2025-01-08 06:24] LABS: Hematocrit 27.2 % (37.0-47.0); Hemoglobin 9.1 g/dl (12.0-16.0); Imm Gran Abs Auto 0.29 X10*3/uL (0.00-0.03); Imm Gran Pct Auto 2.7 % (0.0-0.4); Lymphocytes Absolute Auto 0.6 X10*3/uL (1.2-4.9); Mean Corpuscular HGB Conc 33.5 g/dl (31.0-35.0); Mean Corpuscular Hemoglobin 27.0 pg (27.0-33.0); Mean Corpuscular Volume 80.7 fL (80.0-98.0); NRBC Abs Auto 0.140 X10*3/uL (0.0-0.012); Platelet Count 154 X10*3/uL (160-400); Red Blood Count 3.37 X10*6/uL (4.20-5.50); White Blood Count 10.7 X10*3/uL (4.8-10.8)
[2025-01-08 06:26] LABS: NRBC Pct Auto 1.3 /100WBC (0.0-0.2)
[2025-01-08 06:33] LABS: Albumin Level 3.2 g/dL (3.5-5.0)
[2025-01-08 06:41] LABS: Anion Gap 12 (12-20); Blood Urea Nitrogen 32 mg/dL (9-16); Calcium 8.8 mg/dL (8.4-10.2); Carbon Dioxide 36 mmol/L (22-29); Chloride 109 mmol/L (96-108); Creatinine Clr Calc Pharmacy 109.0; Estimated Glomerular Filt Rate > 60; Magnesium 1.9 mg/dL (1.6-2.6); Potassium 3.7 mmol/L (3.3-5.1); Sodium 153 mmol/L (135-145)
[2025-01-08 06:51] LABS: Venous Blood Gas Refer to POC result
[2025-01-08] MEDS: Furosemide 20 MG/2 ML VIAL IVPUSH ×2 (08:01→17:00)
[2025-01-08] MEDS: Chlorhexidine Gluc Oral Rinse 15 ML MOUTHWASH BUCCAL ×3 (08:02→20:13)
--- NOTE | 2025-01-08 08:24 | P.PNCC_ITS ---
Subjective Subjective Date of Service: 01/08/25 Interval History: no significant overnight events; pending court hearing today Critical Care Time (minutes): 60 Physical Exam 2 Vital Signs: Vital Signs: Last Vital Signs Temp 98.1 F 01/08/25 08:00 Pulse 104 H 01/08/25 08:00 Resp 6 L 01/08/25 08:00 BP 126/68 01/08/25 08:00 Pulse Ox 93 01/08/25 08:00 O2 Del Method Mechanical Ventil ation 01/08/25 08:00 O2 Flow Rate 50 12/30/24 16:00 FiO2 80 01/08/25 08:00 Oxygen Flow Rate 60 12/30/24 11:13 BMI result Body Mass Index 26.4 Const: Other: intubated, sedated; appreciable spontaneous, non-purposeful movements; grimacing General: no acute distress and well developed HEENT: Head: Yes normal to inspection, Yes normocephalic and Yes atraumatic Eyes: General: appearance normal, both eyes and all related structures Neck: Neck: Yes normal visual inspection, Yes full ROM, Yes no meningeal signs, Yes trachea midline and Yes supple Chest: Chest palpation & inspection: normal inspection of the chest Resp: Other: some appreciable rhonchi, rales; no appreciable overt wheezing Cardio: Rate: regular rate Rhythm: regular rhythm GI: Inspection: Yes normal to inspection, No Abdominal wall edema and No distended Palpation (GI): Soft to palpation, not firm, nontender, no guarding and not rigid Skin: General skin exam: no rashes or lesions noted Neuro: General: tone normal, moves all extremities and no meningeal signs Psych: Other: unable to assess Objective Data Labs 01/08/25 06:01 01/08/25 06:01 Labs: Laboratory Results - last 24 hr 12/31/24 01/07/25 01/07/25 10:19 06:47 09:25 WBC RBC Hgb Hct MCV MCH MCHC RDW Plt Count MPV Immature Gran % (Auto) Neut % (Auto) Lymph % (Auto) [place] % (Auto) Eos % (Auto) Baso % (Auto) Lymph # (Auto) [place] # (Auto) Eos # (Auto) Baso # (Auto) Abs Immat Gran (auto) Absolute Neuts (auto) Absolute Nucleated RBC Nucleated RBC % (auto) Neutrophils % (Manual) Band Neutrophils % Lymphocytes % (Manual) Monocytes % (Manual) Metamyelocytes % Abs Neuts (Manual) Lymphocytes # (Manual) Monocytes # (Manual) Metamyelocytes # Nucleated RBCs Platelet Estimate Large Platelets Plt Morphology Comment RBC Morphology Hypochromasia Basophilic Stippling Microcytosis Schistocytes VBG pH VBG pCO2 VBG pO2 VBG HCO3 VBG O2 Saturation VBG Base Excess Sodium Potassium Chloride Carbon Dioxide Anion Gap BUN Creatinine Estim Creat Clear Calc Estimated GFR POC Glucose Random Glucose Calcium Phosphorus Magnesium Albumin Stool Occult Blood POSITIVE KANIKA Titer TNP KANIKA Titer 2 TNP KANIKA Titer 3 TNP KANIKA Pattern TNP KANIKA Pattern 2 TNP KANIKA Pattern 3 TNP Blood Type A Negative Antibody Screen NEGATIVE Crossmatch See Detail 01/07/25 01/07/25 01/07/25 11:19 15:10 17:33 WBC 9.3 RBC 2.74 L Hgb 7.0 L* Hct 21.0 L* MCV 76.6 L MCH 25.5 L MCHC 33.3 RDW 21.9 H Plt Count 114 L MPV Not Reportable Immature Gran % (Auto) Cancelled Neut % (Auto) Cancelled Lymph % (Auto) Cancelled [place] % (Auto) Cancelled Eos % (Auto) Cancelled Baso % (Auto) Cancelled Lymph # (Auto) Cancelled [place] # (Auto) Cancelled Eos # (Auto) Cancelled Baso # (Auto) Cancelled Abs Immat Gran (auto) Cancelled Absolute Neuts (auto) Cancelled Absolute Nucleated RBC 0.160 H Nucleated RBC % (auto) 1.7 H Neutrophils % (Manual) 86 H Band Neutrophils % 3 Lymphocytes % (Manual) 6 L Monocytes % (Manual) 4 Metamyelocytes % 1 Abs Neuts (Manual) 8.3 Lymphocytes # (Manual) 0.6 L Monocytes # (Manual) 0.4 Metamyelocytes # 0.1 Nucleated RBCs 1 H Platelet Estimate NORMAL Large Platelets PRESENT Plt Morphology Comment NOTED RBC Morphology NOTED Hypochromasia 1+ (5-14) Basophilic Stippling 1+ (0-2) Microcytosis 1+ (5-14) Schistocytes 2+ (3-5) VBG pH VBG pCO2 VBG pO2 VBG HCO3 VBG O2 Saturation VBG Base Excess Sodium 147 H Potassium 3.2 L Chloride 105 Carbon Dioxide 36 H Anion Gap 9 L BUN 40 H Creatinine 0.61 Estim Creat Clear Calc 88.6 Estimated GFR > 60 POC Glucose 300 H 126 H Random Glucose 168 H Calcium 8.3 L Phosphorus 3.0 Magnesium 2.0 Albumin Stool Occult Blood KANIKA Titer KANIKA Titer 2 KANIKA Titer 3 KANIKA Pattern KANIKA Pattern 2 KANIKA Pattern 3 Blood Type Antibody Screen Crossmatch 01/07/25 01/07/25 01/08/25 23:13 23:19 05:40 WBC 10.7 RBC 3.37 L D Hgb 9.0 L D Hct 27.0 L D MCV 80.1 MCH 26.7 L MCHC 33.3 RDW 23.5 H Plt Count 151 L D MPV 11.0 Immature Gran % (Auto) Neut % (Auto) Lymph % (Auto) [place] % (Auto) Eos % (Auto) Baso % (Auto) Lymph # (Auto) [place] # (Auto) Eos # (Auto) Baso # (Auto) Abs Immat Gran (auto) Absolute Neuts (auto) Absolute Nucleated RBC 0.230 H Nucleated RBC % (auto) 2.1 H Neutrophils % (Manual) Band Neutrophils % Lymphocytes % (Manual) Monocytes % (Manual) Metamyelocytes % Abs Neuts (Manual) Lymphocytes # (Manual) Monocytes # (Manual) Metamyelocytes # Nucleated RBCs Platelet Estimate Large Platelets Plt Morphology Comment RBC Morphology Hypochromasia Basophilic Stippling Microcytosis Schistocytes VBG pH VBG pCO2 VBG pO2 VBG HCO3 VBG O2 Saturation VBG Base Excess Sodium 152 H Potassium 3.2 L Chloride 108 Carbon Dioxide 36 H Anion Gap 11 L BUN 34 H Creatinine 0.55 Estim Creat Clear Calc 98.3 Estimated GFR > 60 POC Glucose 100 73 Random Glucose 100 Calcium 8.5 Phosphorus Magnesium Albumin Stool Occult Blood KANIKA Titer KANIKA Titer 2 KANIKA Titer 3 KANIKA Pattern KANIKA Pattern 2 KANIKA Pattern 3 Blood Type Antibody Screen Crossmatch 01/08/25 01/08/25 06:01 06:03 WBC 10.7 RBC 3.37 L Hgb 9.1 L Hct 27.2 L MCV 80.7 MCH 27.0 MCHC 33.5 RDW 23.8 H Plt Count 154 L MPV 12.2 Immature Gran % (Auto) 2.7 H Neut % (Auto) 86.0 H Lymph % (Auto) 5.8 L [place] % (Auto) 4.7 Eos % (Auto) 0.1 Baso % (Auto) 0.7 Lymph # (Auto) 0.6 L [place] # (Auto) 0.5 Eos # (Auto) 0.0 Baso # (Auto) 0.1 Abs Immat Gran (auto) 0.29 H Absolute Neuts (auto) 9.2 H Absolute Nucleated RBC 0.140 H Nucleated RBC % (auto) 1.3 H Neutrophils % (Manual) Band Neutrophils % Lymphocytes % (Manual) Monocytes % (Manual) Metamyelocytes % Abs Neuts (Manual) Lymphocytes # (Manual) Monocytes # (Manual) Metamyelocytes # Nucleated RBCs Platelet Estimate Large Platelets Plt Morphology Comment RBC Morphology Hypochromasia Basophilic Stippling Microcytosis Schistocytes VBG pH 7.53 H VBG pCO2 50 VBG pO2 55 VBG HCO3 42 H VBG O2 Saturation 87.0 VBG Base Excess 17.9 Sodium 153 H Potassium 3.7 Chloride 109 H Carbon Dioxide 36 H Anion Gap 12 BUN 32 H Creatinine 0.50 Estim Creat Clear Calc 109.0 Estimated GFR > 60 POC Glucose Random Glucose 68 Calcium 8.8 Phosphorus 2.7 Magnesium 1.9 Albumin 3.2 L Stool Occult Blood KANIKA Titer KANIKA Titer 2 KANIKA Titer 3 KANIKA Pattern KANIKA Pattern 2 KANIKA Pattern 3 Blood Type Antibody Screen Crossmatch Microbiology Microbiology Results: Microbiology 12/31/24 11:58 Bronch Lll Fungal Identification - Preliminary Yeast Filamentous fungus 12/31/24 11:58 Bronch Rul Direct Acid Fast Bacilli Smear - Final 12/31/24 11:58 Bronch Rul Acid Fast Bacilli Culture & Smear - Preliminary 01/01/25 16:20 Cerebrospinal Fluid Gram Stain - Final 01/01/25 16:20 Cerebrospinal Fluid Fluid Description - Final 01/01/25 16:20 Cerebrospinal Fluid CSF Culture - Final No growth after 3 days. 12/31/24 05:23 Blood - Venous Blood Culture - Final No growth after 5 days. 12/31/24 11:58 Bronch Rul Gram Stain - Final 12/31/24 11:58 Bronch Rul - Final No growth after 2 days 12/31/24 11:58 Bronch Lll Gram Stain - Final 12/31/24 11:58 Bronch Lll - Final Yeast 12/22/24 20:59 Blood - Venous Blood Culture - Final No growth after 5 days. 12/22/24 02:49 Blood - Venous Blood Culture - Final No growth after 5 days. 12/22/24 02:49 Blood - Venous Blood Culture - Final No growth after 5 days. 12/19/24 18:25 Pericardial Fluid Gram Stain - Final 12/19/24 18:25 Pericardial Fluid Anaerobic Culture - Final NO GROWTH AFTER 5 DAYS 12/19/24 18:25 Pericardial Fluid Body Fluid Culture - Final No growth after 2 days 12/17/24 08:52 Blood - Venous Blood Culture - Final No growth after 5 days. 12/17/24 08:42 Blood - Venous Blood Culture - Final No growth after 5 days. Progress Note: A&P Assessment and plan (1) ARDS (adult respiratory distress syndrome): Status: Acute (2) Pneumonia: Status: Acute (3) GI bleed: Status: Acute Plan Patient is a 59 Y F w/ schizoaffective disorder, hyperlipidemia, hypothyroidism, and COPD [facility] w/ encephalopathy, found to be in acute hypoxic respiratory failure thought to be d/t pneumonia, admitted medicine; on 12/19, patient developed worsening acute hypoxic respiratory failure, found to have cardiac tamponade, s/p pericardial drain w/ IR; ICU course c/b worsening respiratory failure, intubated 12/21, extubated 12/24; on 12/30, patient w/ worsening hypoxic respiratory failure, re- intubated N: intubated, sedated w/ propofol, fentanyl gtts, wean as tolerated; schizoaffective disorder, home antipsychotic regimen CV: shock, norepinephrine gtt, wean as tolerated; cardiac tamponade, resolved R: acute hypoxic respiratory failure, likely multi-factorial, d/t aspiration pneumonia, COPD, intubated 12/21, extubated 12/24, re-intubated 12/30 w/ persistent severe acute hypoxic respiratory failure/ARDS GI: c/f lower GI bleed, tranfuse as needed, s/p protamine for enoxaparin reversal, appreciate GI recommendations; to hold tube feeds : acute renal insufficiency, improved, to monitor renal indices/electrolytes H: c/f lower GI bleed, to hold chemical DVT prophylaxis, mechanical devices ID: pneumonia, possible fungal pneumonia w/ filamentous fungus, empiric cefepime, to escalate fluconazole to voriconazole/casopofungin awaiting amphotericin B E: hypothyroidism, home levothyroxine P: schizoaffecitive disorder, home antipsychotic regimen S: assigned guardian, plan for court hearing 01/08 for possible code status change to DNR/DNI Quality Stroke Does the patient have a stroke diagnosis?: No VTE Prior VTE?: No VTE Risk Level:: Medical - moderate - high VTE Device Contraindication: N/A - Device Ordered VTE Drug Contraindication: N/A - Med Ordered
[2025-01-08] MEDS: Albumin Human 25 % 50 ML 100 ML IV (08:52)
[2025-01-08] MEDS: Voriconazole 200 MG in 0.9 % Sodium Chloride 100 ML 50 MG IV ×2 (10:12→20:27)
[2025-01-08 11:22] LABS: Glucose, Whole Blood 73 mg/dL (60-115)
--- NOTE | 2025-01-08 11:59 | MHC.CLN ---
F/U PT REMAINS INTUBATED AND SEDATED DISCUSSED AT ROUNDS WITH PT IS CURRENTLY NPO R/T NOT TOLERATING TF AND ONE EPISODE OF VOMITING PT PREVIOUSLY RECEIVED GLUCERNA 1.2 TF AT MAX GOAL RATE OF 45ML/HR WITH 240ML FREE WATER FLUSHES Q 6 HRS PROVIDES 1296KCALS (1834KCALS WITH SEDATION; 30KCALS/KG), 65G PROTEIN (1.0G/KG), 1830ML TOTAL WATER FROM FORMULA AND FLUSHES (30ML/KG) FOLLOWING FOR DIET ADVANCEMENT
--- NOTE | 2025-01-08 14:59 | MHC.CM.PN ---
EMR REVIEWED AND PER ICU ROUNDS, PATIENT REMAINS ON VENTILATORY SUPPORT. COURT HEARING TODAY AT 11AM REGARDING CHANGING CODE STATUS. AWAITING COURT DOCUMENTS.
[2025-01-08 15:10] LABS: Pneumocystis jir source Sputum
--- NOTE | 2025-01-08 16:59 | P.PNGI_ITS ---
Subjective Subjective Date of Service: 01/08/25 Interval History: pt HGB stable, remains on vent, sedated rectal tube with brown stool, no melena or blood Critical Care Time (minutes): 0 Physical Exam 2 Exam: Exam: EXAM: GENERAL: The patient is frail, intubated VITAL SIGNS:see workflow HEENT: Nonicteric sclerae, PERRLA, EOMI. Oropharynx clear. Moist mucous membranes. Conjunctivae appear well perfused. No thyroid mass. CHEST: Chest wall is nontender. HEART: Regular rate and rhythm without murmurs. LUNGS: Clear to auscultation bilaterally. ABDOMEN: Soft, positive bowel sounds, nontender, no organomegaly.no flank tenderness SKIN: No rash, no excessive bruising, petechiae, or purpura. NEUROLOGIC: sedated Psych: sedated Vital Signs: Vital Signs: Last Vital Signs Temp 98.9 F 01/08/25 16:00 Pulse 108 H 01/08/25 16:00 Resp 21 H 01/08/25 16:00 BP 149/71 H 01/08/25 16:00 Pulse Ox 88 L 01/08/25 16:00 O2 Del Method Mechanical Ventil ation 01/08/25 16:00 O2 Flow Rate 50 12/30/24 16:00 FiO2 80 01/08/25 16:00 Oxygen Flow Rate 60 12/30/24 11:13 BMI result Body Mass Index 26.4 Objective Data Labs 01/08/25 06:01 01/08/25 06:01 Labs: Laboratory Results - last 24 hr 12/31/24 01/07/25 01/07/25 11:58 06:47 17:33 WBC RBC Hgb Hct MCV MCH MCHC RDW Plt Count MPV Immature Gran % (Auto) Neut % (Auto) Lymph % (Auto) [place] % (Auto) Eos % (Auto) Baso % (Auto) Lymph # (Auto) [place] # (Auto) Eos # (Auto) Baso # (Auto) Abs Immat Gran (auto) Absolute Neuts (auto) Absolute Nucleated RBC Nucleated RBC % (auto) VBG pH VBG pCO2 VBG pO2 VBG HCO3 VBG O2 Saturation VBG Base Excess Sodium Potassium Chloride Carbon Dioxide Anion Gap BUN Creatinine Estim Creat Clear Calc Estimated GFR POC Glucose 126 H Random Glucose Calcium Phosphorus Magnesium Albumin Pneumocystis Source Sputum Pneumocyst jirovecii PCR SEE NOTE Blood Type A Negative Antibody Screen NEGATIVE Crossmatch See Detail 01/07/25 01/07/25 01/08/25 23:13 23:19 05:40 WBC 10.7 RBC 3.37 L D Hgb 9.0 L D Hct 27.0 L D MCV 80.1 MCH 26.7 L MCHC 33.3 RDW 23.5 H Plt Count 151 L D MPV 11.0 Immature Gran % (Auto) Neut % (Auto) Lymph % (Auto) [place] % (Auto) Eos % (Auto) Baso % (Auto) Lymph # (Auto) [place] # (Auto) Eos # (Auto) Baso # (Auto) Abs Immat Gran (auto) Absolute Neuts (auto) Absolute Nucleated RBC 0.230 H Nucleated RBC % (auto) 2.1 H VBG pH VBG pCO2 VBG pO2 VBG HCO3 VBG O2 Saturation VBG Base Excess Sodium 152 H Potassium 3.2 L Chloride 108 Carbon Dioxide 36 H Anion Gap 11 L BUN 34 H Creatinine 0.55 Estim Creat Clear Calc 98.3 Estimated GFR > 60 POC Glucose 100 73 Random Glucose 100 Calcium 8.5 Phosphorus Magnesium Albumin Pneumocystis Source Pneumocyst jirovecii PCR Blood Type Antibody Screen Crossmatch 01/08/25 01/08/25 01/08/25 06:01 06:03 11:18 WBC 10.7 RBC 3.37 L Hgb 9.1 L Hct 27.2 L MCV 80.7 MCH 27.0 MCHC 33.5 RDW 23.8 H Plt Count 154 L MPV 12.2 Immature Gran % (Auto) 2.7 H Neut % (Auto) 86.0 H Lymph % (Auto) 5.8 L [place] % (Auto) 4.7 Eos % (Auto) 0.1 Baso % (Auto) 0.7 Lymph # (Auto) 0.6 L [place] # (Auto) 0.5 Eos # (Auto) 0.0 Baso # (Auto) 0.1 Abs Immat Gran (auto) 0.29 H Absolute Neuts (auto) 9.2 H Absolute Nucleated RBC 0.140 H Nucleated RBC % (auto) 1.3 H VBG pH 7.53 H VBG pCO2 50 VBG pO2 55 VBG HCO3 42 H VBG O2 Saturation 87.0 VBG Base Excess 17.9 Sodium 153 H Potassium 3.7 Chloride 109 H Carbon Dioxide 36 H Anion Gap 12 BUN 32 H Creatinine 0.50 Estim Creat Clear Calc 109.0 Estimated GFR > 60 POC Glucose 73 Random Glucose 68 Calcium 8.8 Phosphorus 2.7 Magnesium 1.9 Albumin 3.2 L Pneumocystis Source Pneumocyst jirovecii PCR Blood Type Antibody Screen Crossmatch Microbiology Microbiology Results: Microbiology 12/31/24 11:58 Bronch Lll Fungal Identification - Preliminary Yeast Filamentous fungus 12/31/24 11:58 Bronch Rul Direct Acid Fast Bacilli Smear - Final 12/31/24 11:58 Bronch Rul Acid Fast Bacilli Culture & Smear - Preliminary 01/01/25 16:20 Cerebrospinal Fluid Gram Stain - Final 01/01/25 16:20 Cerebrospinal Fluid Fluid Description - Final 01/01/25 16:20 Cerebrospinal Fluid CSF Culture - Final No growth after 3 days. 12/31/24 05:23 Blood - Venous Blood Culture - Final No growth after 5 days. 12/31/24 11:58 Bronch Rul Gram Stain - Final 12/31/24 11:58 Bronch Rul - Final No growth after 2 days 12/31/24 11:58 Bronch Lll Gram Stain - Final 12/31/24 11:58 Bronch Lll - Final Yeast 12/22/24 20:59 Blood - Venous Blood Culture - Final No growth after 5 days. 12/22/24 02:49 Blood - Venous Blood Culture - Final No growth after 5 days. 12/22/24 02:49 Blood - Venous Blood Culture - Final No growth after 5 days. 12/19/24 18:25 Pericardial Fluid Gram Stain - Final 12/19/24 18:25 Pericardial Fluid Anaerobic Culture - Final NO GROWTH AFTER 5 DAYS 12/19/24 18:25 Pericardial Fluid Body Fluid Culture - Final No growth after 2 days 12/17/24 08:52 Blood - Venous Blood Culture - Final No growth after 5 days. 12/17/24 08:42 Blood - Venous Blood Culture - Final No growth after 5 days. Procedures Date of Service Date of Service: 01/08/25 Progress Note: A&P Assessment and plan (1) Anemia: Status: Acute Assessment and Plan: 1/ anemia, HGB incremented approroately after 2 U PRBC, no overt GI bleeding, smear with schistocytes PLAN: /1- hold on EGD for the moment-can reassess if overt GI bleeding 2/ consider w/u for hemolytic anemia, TTP, consider checking levi test, LDH, haptoglobin 3/ keep on low dose PPI- reduce risk of stress ulceration Time Spent With Patient Time: Total time managing care of this patient today ____ minutes. Quality Stroke Does the patient have a stroke diagnosis?: No VTE Prior VTE?: No VTE Risk Level:: Medical - moderate - high VTE Device Contraindication: N/A - Device Ordered VTE Drug Contraindication: N/A - Med Ordered
[2025-01-08 17:24] LABS: Glucose, Whole Blood 94 mg/dL (60-115)
[2025-01-08 20:24] LABS: Anion Gap 13 (12-20); Blood Urea Nitrogen 32 mg/dL (9-16); Calcium 9.2 mg/dL (8.4-10.2); Carbon Dioxide 37 mmol/L (22-29); Chloride 106 mmol/L (96-108); Creatinine Clr Calc Pharmacy 89.3; Estimated Glomerular Filt Rate > 60; Magnesium 2.0 mg/dL (1.6-2.6); Potassium 2.9 mmol/L (3.3-5.1); Sodium 153 mmol/L (135-145)
[2025-01-08 20:30] LABS: Hematocrit 31.4 % (37.0-47.0); Hemoglobin 10.3 g/dl (12.0-16.0); Mean Corpuscular HGB Conc 32.8 g/dl (31.0-35.0); Mean Corpuscular Hemoglobin 26.8 pg (27.0-33.0); Mean Corpuscular Volume 81.6 fL (80.0-98.0); NRBC Abs Auto 0.110 X10*3/uL (0.0-0.012); NRBC Pct Auto 1.0 /100WBC (0.0-0.2); Platelet Count 168 X10*3/uL (160-400); Red Blood Count 3.85 X10*6/uL (4.20-5.50); White Blood Count 11.4 X10*3/uL (4.8-10.8)
[2025-01-08] MEDS: Amiodarone/Dextrose 150 MG/100 ML PLAST..BAG 600 MG IV (20:30)
--- NOTE | 2025-01-08 21:13 | HO.SKINPHOTO ---
Location: Upper Lip Category: Pressure injury Stage: 2 Location: [place] anal area Category: Maceration
[2025-01-08 23:41] LABS: Glucose, Whole Blood 134 mg/dL (60-115)
[2025-01-08] MEDS: 0.9 % Sodium Chloride Flush 3 ML SYRINGE IVFLUSH (23:51)
[2025-01-09] VITALS (35 sets, daily range): BP systolic 112–156; BP diastolic 61–88; PULSE 71–129; RESP 12–29; TEMP 34.4–38; O2SAT 89–95; BMI 26.2
[2025-01-09] MEDS: cefEPime HCl/D5W 2 GM/50 ML PIGGYBACK IV ×2 (01:29→14:42)
[2025-01-09] MEDS: fentaNYL citrate/NS 1,000 MCG/100 ML PLAST..BAG 20 MCG IVCONT ×5 (02:42→20:41)
[2025-01-09 05:28] LABS: VBG HCO3 44 mmol/L (22-26); VBG O2 % Saturation 85.0 %
[2025-01-09 05:28] LABS: Glucose, Whole Blood 163 mg/dL (60-115)
[2025-01-09 05:39] LABS: Venous Blood Gas Refer to POC result
[2025-01-09 06:08] LABS: NRBC Pct Auto 0.7 /100WBC (0.0-0.2); SCAN SMEAR FLAG 1
[2025-01-09 06:10] LABS: Hematocrit 30.3 % (37.0-47.0); Hemoglobin 9.6 g/dl (12.0-16.0); Imm Gran Abs Auto 0.18 X10*3/uL (0.00-0.03); Imm Gran Pct Auto 1.6 % (0.0-0.4); Lymphocytes Absolute Auto 0.5 X10*3/uL (1.2-4.9); MANUAL DIFF FLAG SCAN; Mean Corpuscular HGB Conc 31.7 g/dl (31.0-35.0); Mean Corpuscular Hemoglobin 26.2 pg (27.0-33.0); Mean Corpuscular Volume 82.8 fL (80.0-98.0); NRBC Abs Auto 0.080 X10*3/uL (0.0-0.012); Platelet Count 150 X10*3/uL (160-400); Red Blood Count 3.66 X10*6/uL (4.20-5.50); White Blood Count 11.1 X10*3/uL (4.8-10.8)
[2025-01-09 06:22] LABS: PLT ABN DIST 1
[2025-01-09 06:24] LABS: Albumin Level 3.1 g/dL (3.5-5.0); Anion Gap 15 (12-20); Blood Urea Nitrogen 30 mg/dL (9-16); Calcium 8.7 mg/dL (8.4-10.2); Carbon Dioxide 33 mmol/L (22-29); Chloride 108 mmol/L (96-108); Creatinine Clr Calc Pharmacy 98.8; Estimated Glomerular Filt Rate > 60; Magnesium 2.0 mg/dL (1.6-2.6); Potassium 3.1 mmol/L (3.3-5.1); Sodium 153 mmol/L (135-145)
[2025-01-09] MEDS: Voriconazole 200 MG in 0.9 % Sodium Chloride 100 ML 50 MG IV (08:00)
[2025-01-09] MEDS: 0.9 % Sodium Chloride Flush 3 ML SYRINGE IVFLUSH ×2 (08:01→23:40)
[2025-01-09] MEDS: Furosemide 20 MG/2 ML VIAL IVPUSH (08:01)
[2025-01-09] MEDS: Chlorhexidine Gluc Oral Rinse 15 ML MOUTHWASH BUCCAL ×3 (08:01→19:39)
--- NOTE | 2025-01-09 09:31 | PM.CCPN ---
Subjective Subjective Date of Service: 01/09/25 Interval History: intermittent atrial fibrillation w/ RVR to 190s, started on amiodarone gtt Critical Care Time (minutes): 60 Physical Exam Vital Signs: Vital Signs: Last Vital Signs Temp 99.4 F 01/09/25 09:00 Pulse 129 H 01/09/25 09:00 Resp 21 H 01/09/25 09:00 BP 143/68 H 01/09/25 09:00 Pulse Ox 90 L 01/09/25 09:00 O2 Del Method Mechanical Ventil ation 01/09/25 09:00 O2 Flow Rate 50 12/30/24 16:00 FiO2 90 01/09/25 09:00 Oxygen Flow Rate 60 12/30/24 11:13 BMI result Body Mass Index 26.2 Const: Other: intubated, sedated General: comfortable, no acute distress and well developed HEENT: Head: Yes normal to inspection, Yes normocephalic and Yes atraumatic Eyes: General: appearance normal, both eyes and all related structures Neck: Neck: Yes normal visual inspection, Yes full ROM, Yes no meningeal signs, Yes trachea midline and Yes supple Chest: Chest palpation & inspection: normal inspection of the chest Resp: Other: appreciable diffuse rhonchi, some rales; no appreciable overt wheezing Effort & Inspection: normal respiratory effort Cardio: Rate: tachycardic Rhythm: abnormal rhythm GI: Inspection: Yes normal to inspection, No Abdominal wall edema and No distended Palpation (GI): Soft to palpation, not firm, nontender, no guarding and not rigid Skin: General skin exam: no rashes or lesions noted Neuro: General: tone normal and no meningeal signs Extrem: Other: appreciable 1+ pitting edema to bilateral shins General: Yes normal to inspection, Yes full ROM and Yes capillary refill normal Psych: Other: unable to assess Objective Data Labs 01/09/25 04:52 01/09/25 04:52 Labs: Laboratory Results - last 24 hr 12/31/24 01/08/25 01/08/25 11:58 11:18 17:21 WBC RBC Hgb Hct MCV MCH MCHC RDW Plt Count MPV Immature Gran % (Auto) Neut % (Auto) Lymph % (Auto) [place] % (Auto) Eos % (Auto) Baso % (Auto) Lymph # (Auto) [place] # (Auto) Eos # (Auto) Baso # (Auto) Abs Immat Gran (auto) Absolute Neuts (auto) Absolute Nucleated RBC Nucleated RBC % (auto) Smear Tech's Comments VBG pH VBG pCO2 VBG pO2 VBG HCO3 VBG O2 Saturation VBG Base Excess Sodium Potassium Chloride Carbon Dioxide Anion Gap BUN Creatinine Estim Creat Clear Calc Estimated GFR POC Glucose 73 94 Random Glucose Calcium Phosphorus Magnesium Albumin Pneumocystis Source Sputum Pneumocyst jirovecii PCR SEE NOTE 01/08/25 01/08/25 01/09/25 19:37 23:35 04:52 WBC 11.4 H 11.1 H RBC 3.85 L 3.66 L Hgb 10.3 L 9.6 L Hct 31.4 L 30.3 L MCV 81.6 82.8 MCH 26.8 L 26.2 L MCHC 32.8 31.7 RDW 24.9 H 25.0 H Plt Count 168 150 L MPV Not Reportable Not Reportable Immature Gran % (Auto) 1.6 H Neut % (Auto) 88.3 H Lymph % (Auto) 4.9 L [place] % (Auto) 4.7 Eos % (Auto) 0.1 Baso % (Auto) 0.4 Lymph # (Auto) 0.5 L [place] # (Auto) 0.5 Eos # (Auto) 0.0 Baso # (Auto) 0.0 Abs Immat Gran (auto) 0.18 H Absolute Neuts (auto) 9.8 H Absolute Nucleated RBC 0.110 H 0.080 H Nucleated RBC % (auto) 1.0 H 0.7 H Smear Tech's Comments VERIFIED VBG pH VBG pCO2 VBG pO2 VBG HCO3 VBG O2 Saturation VBG Base Excess Sodium 153 H 153 H Potassium 2.9 L* D 3.1 L Chloride 106 108 Carbon Dioxide 37 H 33 H Anion Gap 13 15 BUN 32 H 30 H Creatinine 0.61 0.55 Estim Creat Clear Calc 89.3 98.8 Estimated GFR > 60 > 60 POC Glucose 134 H Random Glucose 99 154 H Calcium 9.2 8.7 Phosphorus 2.5 L 2.4 L Magnesium 2.0 2.0 Albumin 3.1 L Pneumocystis Source Pneumocyst jirovecii PCR 01/09/25 01/09/25 05:20 05:24 WBC RBC Hgb Hct MCV MCH MCHC RDW Plt Count MPV Immature Gran % (Auto) Neut % (Auto) Lymph % (Auto) [place] % (Auto) Eos % (Auto) Baso % (Auto) Lymph # (Auto) [place] # (Auto) Eos # (Auto) Baso # (Auto) Abs Immat Gran (auto) Absolute Neuts (auto) Absolute Nucleated RBC Nucleated RBC % (auto) Smear Tech's Comments VBG pH 7.61 H* VBG pCO2 43 VBG pO2 52 VBG HCO3 44 H VBG O2 Saturation 85.0 VBG Base Excess 20.4 Sodium Potassium Chloride Carbon Dioxide Anion Gap BUN Creatinine Estim Creat Clear Calc Estimated GFR POC Glucose 163 H Random Glucose Calcium Phosphorus Magnesium Albumin Pneumocystis Source Pneumocyst jirovecii PCR Microbiology Microbiology Results: Microbiology 12/31/24 11:58 Bronch Lll Fungal Identification - Preliminary Yeast Filamentous fungus 12/31/24 11:58 Bronch Rul Direct Acid Fast Bacilli Smear - Final 12/31/24 11:58 Bronch Rul Acid Fast Bacilli Culture & Smear - Preliminary 01/01/25 16:20 Cerebrospinal Fluid Gram Stain - Final 01/01/25 16:20 Cerebrospinal Fluid Fluid Description - Final 01/01/25 16:20 Cerebrospinal Fluid CSF Culture - Final No growth after 3 days. 12/31/24 05:23 Blood - Venous Blood Culture - Final No growth after 5 days. 12/31/24 11:58 Bronch Rul Gram Stain - Final 12/31/24 11:58 Bronch Rul - Final No growth after 2 days 12/31/24 11:58 Bronch Lll Gram Stain - Final 12/31/24 11:58 Bronch Lll - Final Yeast 12/22/24 20:59 Blood - Venous Blood Culture - Final No growth after 5 days. 12/22/24 02:49 Blood - Venous Blood Culture - Final No growth after 5 days. 12/22/24 02:49 Blood - Venous Blood Culture - Final No growth after 5 days. 12/19/24 18:25 Pericardial Fluid Gram Stain - Final 12/19/24 18:25 Pericardial Fluid Anaerobic Culture - Final NO GROWTH AFTER 5 DAYS 12/19/24 18:25 Pericardial Fluid Body Fluid Culture - Final No growth after 2 days 12/17/24 08:52 Blood - Venous Blood Culture - Final No growth after 5 days. 12/17/24 08:42 Blood - Venous Blood Culture - Final No growth after 5 days. Progress Note: A&P Assessment and plan (1) ARDS (adult respiratory distress syndrome): Status: Acute (2) Pneumonia: Status: Acute Plan Patient is a 59 Y F w/ schizoaffective disorder, hyperlipidemia, hypothyroidism, and COPD [facility] w/ encephalopathy, found to be in acute hypoxic respiratory failure thought to be d/t pneumonia, admitted medicine; on 12/19, patient developed worsening acute hypoxic respiratory failure, found to have cardiac tamponade, s/p pericardial drain w/ IR; ICU course c/b worsening respiratory failure, intubated 12/21, extubated 12/24; on 12/30, patient w/ worsening hypoxic respiratory failure, re-intubated N: intubated, sedated w/ propofol, fentanyl gtts, wean as tolerated; schizoaffective disorder, home antipsychotic regimen CV: shock, norepinephrine gtt, wean as tolerated; tachycardia, amiodarone gtt; cardiac tamponade, resolved R: acute hypoxic respiratory failure, likely multi-factorial, d/t aspiration pneumonia, COPD, intubated 12/21, extubated 12/24, re-intubated 12/30 w/ persistent severe acute hypoxic respiratory failure/ARDS GI: c/f lower GI bleed, tranfuse as needed, s/p protamine for enoxaparin reversal, appreciate GI recommendations; to resume tube feeds : acute renal insufficiency, improved, to monitor renal indices/electrolytes H: c/f lower GI bleed, to hold chemical DVT prophylaxis, mechanical devices ID: pneumonia, 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
[2025-01-09] MEDS: Albumin Human 25 % 50 ML 100 ML IV (09:35)
[2025-01-09] MEDS: Hydrocortisone Sod Succ/PF 100 MG VIAL 50 MG IVPUSH ×3 (09:37→23:55)
[2025-01-09] MEDS: Potassium Phosphate/NS 15 MMOL/250 ML PLAST..BAG 62.5 MMOL IV (09:45)
--- NOTE | 2025-01-09 10:04 | MHC.CLN ---
F/U PT REMAINS INTUBATED AND SEDATED DISCUSSED AT ROUNDS WITH MD-PLAN TO RE-START TF RE-START GLUCERNA 1.2 TF AT MAX GOAL RATE OF 45ML/HR WITH 240ML FREE WATER FLUSHES Q 6 HRS TO PROVIDE 1296KCALS (1834KCALS WITH SEDATION; 30KCALS/KG), 65G PROTEIN (1.0G/KG), 1830ML TOTAL WATER FROM FORMULA AND FLUSHES (30ML/KG) MONITOR TOLERANCE AND LYTES
[2025-01-09 11:36] LABS: Glucose, Whole Blood 143 mg/dL (60-115)
--- NOTE | 2025-01-09 12:13 | HO.WOUND ---
Wound Consult: Follow up 59 yr old female admitted to [facility] [place], [place] on 12/17/24- See progress notes and H&P for detailed history. Wound consult placed for upper lip, follow up for buttocks and columella. Patient remians in the ICU, intubated and sedated, seen with direct care RN at bedside. upper lip and columella Etiology: columella device related pressure injury- resurfaced- may leave open to air upper lip with dry skin over its entirety, localized area center/right with crusting that came off with gentle cleansing, mild pink skin underneath, blanching - inner lip without visible injury - previous photo documentation assessed also, appeared to be very moist/macerated - likely MASD due to moisture trapping under ETT cole - now flipped to bottom lip this morning. recommend routine mouth care and moisturizer per ICU protocol. Wound Bed: intact resurfaced epithelium Drainage / Odor: none Nirmal wound: ? No Induration, Fluctuance or Warmth noted Goals of Treatment: ? routine mouth care with moisturizer per ICU protocol. Buttocks/nirmal anal Etiology: MASDto nirmal-anal region Wound Bed: moist pink largely intac with scattered areas of superficial skin loss. superior anatomical dimple with fading purple base - appears improved from previous assessment Drainage / Odor: none Nirmal wound: ? No Induration, Fluctuance or Warmth noted Pain: none Goals of Treatment: ? triad paste for moisture barrier, moist healing Recommendations: 1. Turn and Reposition every 2 hours and as needed for patient comfort. Use pillows or wedges to support off loading positions. 2. Off Load all bony prominences with use of pillows and heel boots if needed. Apply Preventative foams where needed. 3. Monitor for incontinence and moisture control, use barrier creams when needed for prevention and treatment. 4. Provide adequate and supplemental nutrition. 5. Order or Continue low air loss mattress. 6. When applicable maintain blood glucose levels per Providers order. Nose/mouth: open to air, routine mouth care with moisturzier Buttocks/nirmal-anal: Off Load Pressure with Q2 hr turns and use of pillows - Cleanse with PH balance spray or wipes, pat dry. ?Apply thin layer of Triad to wound bed. Do not remove all of paste between applications as this may cause further skin damage.? Cover sacrum/coccyx with foam dressing to aid in off loading and protection from friction. Change every 3 days and PRN. Re-consult wound care Nurse for wound deterioration or wound changes.
[2025-01-09] MEDS: Dextrose 5 % 50 ML 100 ML IV ×3 (14:00→22:02)
--- NOTE | 2025-01-09 14:23 | MHC.CM.PN ---
Pt remains intubated in ICU: received signed order for expansion of guardianship to allow DNR/DNI code status change. Pt is a LTC resident of [facility] - d/c planning remains ongoing
[2025-01-09 18:00] LABS: Glucose, Whole Blood 187 mg/dL (60-115)
--- NOTE | 2025-01-09 18:29 | PC.NURSE ---
Assumed care at 0700- pt. remains intubated and sedated per MAY. Code status changed to DNR by MD. Weak cough and pain response, absent gag, upward gaze, extremities flaccid. SR/ST on tele with PACs and PVCs, HR fluctuating from 60s-150s. During Amphotericin B test dose, HR dipping to 40s/50s, non-sustained- MD aware, no new orders at this time. Pt. continues on Amio gtt per MAY. ACPC vent settings- see vent assessment for details. TF restarted via OGT- see TF assessment. Gordillo in place draining cyu. Q2 oral care and repositining performed. Plan of care ongoing.
[2025-01-09 18:43] LABS: Anion Gap 13 (12-20); Blood Urea Nitrogen 27 mg/dL (9-16); Calcium 8.8 mg/dL (8.4-10.2); Carbon Dioxide 38 mmol/L (22-29); Chloride 102 mmol/L (96-108); Creatinine Clr Calc Pharmacy 98.8; Estimated Glomerular Filt Rate > 60; Magnesium 1.9 mg/dL (1.6-2.6); Potassium 2.5 mmol/L (3.3-5.1); Sodium 150 mmol/L (135-145)
[2025-01-09] MEDS: Potassium Chloride/H20 40 MEQ/100 ML PIGGYBACK 100 MEQ IV ×2 (19:39→20:43)
[2025-01-09 23:37] LABS: Glucose, Whole Blood 202 mg/dL (60-115)
[2025-01-10] VITALS (41 sets, daily range): BP systolic 91–159; BP diastolic 50–89; PULSE 21–131; RESP 14–27; TEMP 34.9–38.6; O2SAT 86–96; BMI 25.9
[2025-01-10] MEDS: cefEPime HCl/D5W 2 GM/50 ML PIGGYBACK IV ×2 (01:34→14:39)
[2025-01-10 01:40] LABS: Anion Gap 14 (12-20); Blood Urea Nitrogen 27 mg/dL (9-16); Calcium 8.5 mg/dL (8.4-10.2); Carbon Dioxide 33 mmol/L (22-29); Chloride 104 mmol/L (96-108); Creatinine Clr Calc Pharmacy 97.0; Estimated Glomerular Filt Rate > 60; Magnesium 2.2 mg/dL (1.6-2.6); Potassium 3.6 mmol/L (3.3-5.1); Sodium 147 mmol/L (135-145)
[2025-01-10] MEDS: fentaNYL citrate/NS 1,000 MCG/100 ML PLAST..BAG 20 MCG IVCONT ×5 (01:51→20:30)
[2025-01-10 01:54] LABS: Hu Antibody Screen, CSF NEGATIVE (NEGATIVE)
[2025-01-10 04:30] LABS: VBG HCO3 35 mmol/L (22-26); VBG O2 % Saturation 78.0 %
[2025-01-10 04:36] LABS: Venous Blood Gas Refer to POC result
[2025-01-10 05:17] LABS: Mean Corpuscular Volume 84.6 fL (80.0-98.0)
[2025-01-10 05:19] LABS: Hematocrit 32.4 % (37.0-47.0); Hemoglobin 10.3 g/dl (12.0-16.0); Mean Corpuscular HGB Conc 31.8 g/dl (31.0-35.0); Mean Corpuscular Hemoglobin 26.9 pg (27.0-33.0); NRBC Abs Auto 0.100 X10*3/uL (0.0-0.012); NRBC Pct Auto 0.5 /100WBC (0.0-0.2); Platelet Count 108 X10*3/uL (160-400); Red Blood Count 3.83 X10*6/uL (4.20-5.50); White Blood Count 20.1 X10*3/uL (4.8-10.8)
[2025-01-10 05:45] LABS: Albumin Level 3.2 g/dL (3.5-5.0); Anion Gap 13 (12-20); Blood Urea Nitrogen 31 mg/dL (9-16); Calcium 8.3 mg/dL (8.4-10.2); Carbon Dioxide 32 mmol/L (22-29); Chloride 101 mmol/L (96-108); Creatinine Clr Calc Pharmacy 90.5; Estimated Glomerular Filt Rate > 60; Magnesium 2.1 mg/dL (1.6-2.6); Potassium 4.0 mmol/L (3.3-5.1); Sodium 142 mmol/L (135-145)
[2025-01-10] MEDS: Dextrose 5 % 50 ML 100 ML IV ×2 (05:58→21:24)
[2025-01-10 06:25] LABS: PLT ABN DIST 1
[2025-01-10 06:30] LABS: Band Neutrophils Percent 32 % (3-5); Neutrophils Absolute Manual 20.1 X10*3/uL (2.0-8.3); Neutrophils Percent Manual 68 % (45-73)
[2025-01-10 06:32] LABS: Large Platelet PRESENT; Macrocytosis 1+ (5-14) /OIF; Microcytosis 1+ (5-14) /OIF; Ovalocytes 1+ (5-14) /OIF; RBC Morphology NOTED; Schistocytes 1+ (0-2) /OIF
[2025-01-10 06:33] LABS: Basophilic Stippling 1+ (0-2) /OIF; Polychromasia 1+ (0-2) /OIF; Tear Drop Cells 1+ (0-2) /OIF
[2025-01-10 06:34] LABS: Dohle Bodies PRESENT; Toxic Granulation PRESENT; Toxic Vacuolation PRESENT
--- NOTE | 2025-01-10 06:41 | HO.SKINPHOTO ---
Location: Rectum Category: ?MDPI - Fecal management system removed, triad applied Location: MASD Category: Buttocks/ Perineum region - Triad and foam applied Location: Right Ischium Category: Blanchable redness- Foam applied Location: Left [place]chium Category: Blanchable redness- Foam applied
--- NOTE | 2025-01-10 07:05 | PC.NURSE ---
Upon initial assessment at approximately 1900- Patient sedated on Propofol and Fentanyl infusions; RASS -4, titrated for vent synchrony. NSR/ ST on tele, HR 90-120s, MAP >65. BL ankle +1 edema, BL hand +1 edema. ETT #7.5, 19 at the lip, RT aware. On ACPC settings. SpO2 >90%, RR 20s. Adventitious lungs sounds. OGT in place, receiving Glucerna, no s/s of tube feed intolerance. Positive bowel sounds, fecal management system in place. Gordillo in place, draining clear yellow urine. Impaired skin integrity - see wound care note for further details, Wound Care re-consulted. Electrolytes replaced per MAR. At 2100- Amiodarone gtt paused per Dr Nelson and confirmed by RADHA Green prior to IV Amphotericin B administration. Approximately 2300 TMax 100.4, per RADHA Green IV Tylenol administered prior to IV Amphotericin B. IV Amphotericin B administered and titrated slowly by increasing infusion rate gradually per RADHA Green to minimal any potential adverse drug reactions, patient tolerated infusion with no s/s of adverse reactions- see MAR for further details. Amiodarone gtt restarted per RADHA Green. See EMR/ Flowsheet for further details. Bed locked and in lowest position. Repositioned Q2H with pillows and wedges. Report given to oncoming RN at 0700.
[2025-01-10 08:05] LABS: Albumin, CSF 59.1; Prealbumin, CSF 4.2
[2025-01-10 08:06] LABS: Beta Globulin, CSF 17.3; Gamma Globulin 7.5
[2025-01-10] MEDS: Chlorhexidine Gluc Oral Rinse 15 ML MOUTHWASH BUCCAL ×3 (08:31→20:17)
[2025-01-10] MEDS: 0.9 % Sodium Chloride Flush 3 ML SYRINGE IVFLUSH ×2 (08:32→15:41)
[2025-01-10] MEDS: Hydrocortisone Sod Succ/PF 100 MG VIAL 50 MG IVPUSH ×2 (08:32→20:17)
--- NOTE | 2025-01-10 08:43 | P.PNCC_ITS ---
Subjective Subjective Date of Service: 01/10/25 Interval History: no significant overnight events; code status changed to DNR following hearing 01/08 Critical Care Time (minutes): 60 Physical Exam 2 Vital Signs: Vital Signs: Last Vital Signs Temp 100.2 F 01/10/25 08:00 Pulse 103 H 01/10/25 08:00 Resp 19 01/10/25 08:00 BP 123/86 01/10/25 08:00 Pulse Ox 94 01/10/25 08:00 O2 Del Method Mechanical Ventil ation 01/10/25 08:00 O2 Flow Rate 50 12/30/24 16:00 FiO2 90 01/10/25 08:10 Oxygen Flow Rate 60 12/30/24 11:13 BMI result Body Mass Index 25.9 Const: Other: intubated, sedated; no appreciable spontaneous movements General: no acute distress and well developed HEENT: Head: Yes normal to inspection, Yes normocephalic and Yes atraumatic Eyes: General: appearance normal, both eyes and all related structures Neck: Neck: Yes normal visual inspection, Yes full ROM, Yes no meningeal signs, Yes trachea midline and Yes supple Chest: Chest palpation & inspection: normal inspection of the chest Resp: Other: no appreciable overt rales, rhonchi, wheezing Effort & Inspection: normal respiratory effort Cardio: Rate: tachycardic Rhythm: abnormal rhythm GI: Inspection: Yes normal to inspection, No Abdominal wall edema and No distended Palpation (GI): Soft to palpation, not firm, nontender, no guarding and not rigid Skin: General skin exam: no rashes or lesions noted Neuro: General: tone normal and no meningeal signs Extrem: Other: appreciable 1+ pitting edema to bilateral shins General: Yes normal to inspection, Yes full ROM and Yes capillary refill normal Psych: Other: unable to assess Objective Data Labs 01/10/25 04:18 01/10/25 04:18 Labs: Laboratory Results - last 24 hr 01/01/25 01/09/25 01/09/25 16:20 11:32 17:51 WBC RBC Hgb Hct MCV MCH MCHC RDW Plt Count MPV Immature Gran % (Auto) Neut % (Auto) Lymph % (Auto) [place] % (Auto) Eos % (Auto) Baso % (Auto) Lymph # (Auto) [place] # (Auto) Eos # (Auto) Baso # (Auto) Abs Immat Gran (auto) Absolute Neuts (auto) Absolute Nucleated RBC Nucleated RBC % (auto) Neutrophils % (Manual) Band Neutrophils % Abs Neuts (Manual) Toxic Granulation Toxic Vacuolation Dohle Bodies Platelet Estimate Large Platelets Plt Morphology Comment RBC Morphology Polychromasia Basophilic Stippling Microcytosis Macrocytosis Tear Drop Cells Ovalocytes Schistocytes VBG pH VBG pCO2 VBG pO2 VBG HCO3 VBG O2 Saturation VBG Base Excess Sodium Potassium Chloride Carbon Dioxide Anion Gap BUN Creatinine Estim Creat Clear Calc Estimated GFR POC Glucose 143 H 187 H Random Glucose Calcium Phosphorus Magnesium Albumin CSF Total Protein PEP 42 CSF Prealbumin 4.2 CSF Albumin 59.1 CSF Qsgcw-6-Etgmawny 4.6 CSF Lkowt-8-Fjhydqvg 7.4 CSF Beta Globulin 17.3 CSF Gamma Globulin 7.5 CSF PEP Interpret SEE NOTE CSF Anti-Neuronal Ab WB TNP CSF Anti-Neuronal Titer TNP Neuronal Nuc Ab Screen NEGATIVE 01/09/25 01/09/25 01/10/25 18:10 23:28 01:08 WBC RBC Hgb Hct MCV MCH MCHC RDW Plt Count MPV Immature Gran % (Auto) Neut % (Auto) Lymph % (Auto) [place] % (Auto) Eos % (Auto) Baso % (Auto) Lymph # (Auto) [place] # (Auto) Eos # (Auto) Baso # (Auto) Abs Immat Gran (auto) Absolute Neuts (auto) Absolute Nucleated RBC Nucleated RBC % (auto) Neutrophils % (Manual) Band Neutrophils % Abs Neuts (Manual) Toxic Granulation Toxic Vacuolation Dohle Bodies Platelet Estimate Large Platelets Plt Morphology Comment RBC Morphology Polychromasia Basophilic Stippling Microcytosis Macrocytosis Tear Drop Cells Ovalocytes Schistocytes VBG pH VBG pCO2 VBG pO2 VBG HCO3 VBG O2 Saturation VBG Base Excess Sodium 150 H 147 H Potassium 2.5 L* 3.6 D Chloride 102 104 Carbon Dioxide 38 H 33 H Anion Gap 13 14 BUN 27 H 27 H Creatinine 0.55 0.56 Estim Creat Clear Calc 98.8 97.0 Estimated GFR > 60 > 60 POC Glucose 202 H Random Glucose 178 H 182 H Calcium 8.8 8.5 Phosphorus 3.3 2.2 L Magnesium 1.9 2.2 Albumin CSF Total Protein PEP CSF Prealbumin CSF Albumin CSF Pwvxy-0-Komrequb CSF Oclsn-5-Mmbkdytl CSF Beta Globulin CSF Gamma Globulin CSF PEP Interpret CSF Anti-Neuronal Ab WB CSF Anti-Neuronal Titer Neuronal Nuc Ab Screen 01/10/25 01/10/25 04:18 04:24 WBC 20.1 H RBC 3.83 L Hgb 10.3 L Hct 32.4 L MCV 84.6 MCH 26.9 L MCHC 31.8 RDW 26.5 H Plt Count 108 L D MPV Not Reportable Immature Gran % (Auto) Cancelled Neut % (Auto) Cancelled Lymph % (Auto) Cancelled [place] % (Auto) Cancelled Eos % (Auto) Cancelled Baso % (Auto) Cancelled Lymph # (Auto) Cancelled [place] # (Auto) Cancelled Eos # (Auto) Cancelled Baso # (Auto) Cancelled Abs Immat Gran (auto) Cancelled Absolute Neuts (auto) Cancelled Absolute Nucleated RBC 0.100 H Nucleated RBC % (auto) 0.5 H Neutrophils % (Manual) 68 Band Neutrophils % 32 H Abs Neuts (Manual) 20.1 H Toxic Granulation PRESENT Toxic Vacuolation PRESENT Dohle Bodies PRESENT Platelet Estimate DECREASED Large Platelets PRESENT Plt Morphology Comment NOTED RBC Morphology NOTED Polychromasia 1+ (0-2) Basophilic Stippling 1+ (0-2) Microcytosis 1+ (5-14) Macrocytosis 1+ (5-14) Tear Drop Cells 1+ (0-2) Ovalocytes 1+ (5-14) Schistocytes 1+ (0-2) VBG pH 7.45 H VBG pCO2 50 VBG pO2 54 VBG HCO3 35 H VBG O2 Saturation 78.0 VBG Base Excess 10.6 Sodium 142 Potassium 4.0 Chloride 101 Carbon Dioxide 32 H Anion Gap 13 BUN 31 H Creatinine 0.60 Estim Creat Clear Calc 90.5 Estimated GFR > 60 POC Glucose Random Glucose 292 H Calcium 8.3 L Phosphorus 2.5 L Magnesium 2.1 Albumin 3.2 L CSF Total Protein PEP CSF Prealbumin CSF Albumin CSF Wgynk-0-Yfhfcwcj CSF Ecdcd-6-[place] CSF Beta Globulin CSF Gamma Globulin CSF PEP Interpret CSF Anti-Neuronal Ab WB CSF Anti-Neuronal Titer Neuronal Nuc Ab Screen Microbiology Microbiology Results: Microbiology 12/31/24 11:58 Bronch Lll Fungal Identification - Preliminary Florecita albicans Filamentous fungus 12/31/24 11:58 Bronch Rul Direct Acid Fast Bacilli Smear - Final 12/31/24 11:58 Bronch Rul Acid Fast Bacilli Culture & Smear - Preliminary 01/01/25 16:20 Cerebrospinal Fluid Gram Stain - Final 01/01/25 16:20 Cerebrospinal Fluid Fluid Description - Final 01/01/25 16:20 Cerebrospinal Fluid CSF Culture - Final No growth after 3 days. 12/31/24 05:23 Blood - Venous Blood Culture - Final No growth after 5 days. 12/31/24 11:58 Bronch Rul Gram Stain - Final 12/31/24 11:58 Bronch Rul - Final No growth after 2 days 12/31/24 11:58 Bronch Lll Gram Stain - Final 12/31/24 11:58 Bronch Lll - Final Yeast 12/22/24 20:59 Blood - Venous Blood Culture - Final No growth after 5 days. 12/22/24 02:49 Blood - Venous Blood Culture - Final No growth after 5 days. 12/22/24 02:49 Blood - Venous Blood Culture - Final No growth after 5 days. 12/19/24 18:25 Pericardial Fluid Gram Stain - Final 12/19/24 18:25 Pericardial Fluid Anaerobic Culture - Final NO GROWTH AFTER 5 DAYS 12/19/24 18:25 Pericardial Fluid Body Fluid Culture - Final No growth after 2 days 12/17/24 08:52 Blood - Venous Blood Culture - Final No growth after 5 days. 12/17/24 08:42 Blood - Venous Blood Culture - Final No growth after 5 days. Progress Note: A&P Assessment and plan (1) ARDS (adult respiratory distress syndrome): Status: Acute (2) Pneumonia: Status: Acute Plan Patient is a 59 Y F w/ schizoaffective disorder, hyperlipidemia, hypothyroidism, and COPD presenting to ED from nursing home facility on 12/17 w/ encephalopathy, found to be in acute hypoxic respiratory failure thought to be d/t pneumonia, admitted medicine; on 12/19, patient developed worsening acute hypoxic respiratory failure, found to have cardiac tamponade, s/p pericardial drain w/ IR; ICU course c/b worsening respiratory failure, intubated 12/21, extubated 12/24; on 12/30, patient w/ worsening hypoxic respiratory failure, re- intubated N: intubated, sedated w/ propofol, fentanyl gtts, wean as tolerated; schizoaffective disorder, home antipsychotic regimen CV: shock, norepinephrine gtt, wean as tolerated; tachycardia, amiodarone gtt; cardiac tamponade, resolved R: acute hypoxic respiratory failure, likely multi-factorial, d/t aspiration pneumonia, COPD, intubated 12/21, extubated 12/24, re-intubated 12/30 w/ persistent ARDS GI: c/f lower GI bleed, tranfuse as needed, s/p protamine for enoxaparin reversal, resolved; tube feeds : acute renal insufficiency, improved, to monitor renal indices/electrolytes in setting of amphotericin therapy H: c/f lower GI bleed, to hold chemical DVT prophylaxis, mechanical devices ID: pneumonia, possible fungal pneumonia w/ filamentous fungus, empiric cefepime, amphotericin B E: hypothyroidism, home levothyroxine P: schizoaffecitive disorder, home antipsychotic regimen S: assigned guardian Quality Stroke Does the patient have a stroke diagnosis?: No VTE Prior VTE?: No VTE Risk Level:: Medical - moderate - high VTE Device Contraindication: N/A - Device Ordered VTE Drug Contraindication: N/A - Med Ordered
[2025-01-10] MEDS: Albumin Human 25 % 50 ML 100 ML IV ×2 (08:57→23:38)
[2025-01-10] MEDS: Calcium Gluconate/NaCl,Iso-Osm 1 GM/50 ML PLAST..BAG IV (08:58)
[2025-01-10] MEDS: Potassium Phosphate/NS 15 MMOL/250 ML PLAST..BAG 62.5 MMOL IV (09:02)
--- NOTE | 2025-01-10 10:16 | MHC.CLN ---
F/U PT REMAINS INTUBATED AND SEDATED CONTINUE GLUCERNA 1.2 TF AT MAX GOAL RATE OF 45ML/HR WITH 240ML FREE WATER FLUSHES Q 6 HRS TO PROVIDE 1296KCALS (1834KCALS WITH SEDATION; 30KCALS/KG), 65G PROTEIN (1.0G/KG), 1830ML TOTAL WATER FROM FORMULA AND FLUSHES (30ML/KG) MONITOR TOLERANCE AND LYTES RD CAN BE REACHED VIA TIGER CONNECT DURING OFF HOURS IF NEEDED
[2025-01-10 11:41] LABS: Glucose, Whole Blood 202 mg/dL (60-115)
--- NOTE | 2025-01-10 13:10 | MHC.CM.PN ---
Pt remains vented and unable to wean from sedation. Code status changed to DNR/DNI per court order for guardianship expansion. Family to visit this weekend. Pt is a LTC resident of [facility]. Updates sent to facility. CM to follow
--- NOTE | 2025-01-10 13:56 | HO.WOUND ---
Addendum entered by Lisa Porter RN 01/10/25 14:31: @1432 Received message with updated photo for patient. Significant changes noted to Perianal tissue on assessment this afternoon. Given prognosis and atypical presentation would recommend GI consult to assess for alternative etiology. May be MASD but would recommend GI to assess for differential diagnosis. Recommend to continue with Triad to protect and allow for healing. 01/10/25 @ 143 Original Note: Wound Consult: Follow up 59 yr old female admitted to [facility] on [place]/17/24- See progress notes and H&P for detailed history. New wound consult placed for perianal area concern for Device related Mucosal injury. Patient remains in the ICU, intubated and sedated, with a guarded prognosis and recent code status change to DNR / DNI. Buttocks/nirmal anal 01/08/25 01/10/25 MASD -no concern for device related injury at this time given photo uploaded on 01/08/25 and Fecal mgt system placed on 01/07/25. However given the poor clinical picture and the appearance of the mucosa the perianal area recommend not using Fecal Mgt System. Of note the system is not in use and was removed overnight due to concern of device related injury at mucosa at 6'clock. Although does not appear to be device related nor pressure related there is a wound present so wound not recommend fecal mgt system unless heals. Continue with Triad and off loading pressure. Details from last assessment: Etiology: MASDto nirmal-anal region Wound Bed: moist pink largely intac with scattered areas of superficial skin loss - Nirmal wound: ? No Induration, Fluctuance or Warmth noted Pain: none Goals of Treatment: ? triad paste for moisture barrier, moist healing upper lip and columella Etiology: columella device related pressure injury- resurfaced- may leave open to air upper lip with dry skin over its entirety, localized area center/right with crusting that came off with gentle cleansing, mild pink skin underneath, blanching - inner lip without visible injury - previous photo documentation assessed also, appeared to be very moist/macerated - likely MASD due to moisture trapping under ETT cole - now flipped to bottom lip this morning. recommend routine mouth care and moisturizer per ICU protocol. Wound Bed: intact resurfaced epithelium Drainage / Odor: none Nirmal wound: ? No Induration, Fluctuance or Warmth noted Goals of Treatment: ? routine mouth care with moisturizer per ICU protocol. Recommendations: 1. Turn and Reposition every 2 hours and as needed for patient comfort. Use pillows or wedges to support off loading positions. 2. Off Load all bony prominences with use of pillows and heel boots if needed. Apply Preventative foams where needed. 3. Monitor for incontinence and moisture control, use barrier creams when needed for prevention and treatment. 4. Provide adequate and supplemental nutrition. 5. Order or Continue low air loss mattress. 6. When applicable maintain blood glucose levels per Providers order. Nose/mouth: open to air, routine mouth care with moisturzier Buttocks/nirmal-anal: Off Load Pressure with Q2 hr turns and use of pillows - Cleanse with PH balance spray or wipes, pat dry. ?Apply thin layer of Triad to wound bed. Do not remove all of paste between applications as this may cause further skin damage.? Cover sacrum/coccyx with foam dressing to aid in off loading and protection from friction. Change every 3 days and PRN. Re-consult wound care Nurse for wound deterioration or wound changes.
[2025-01-10 17:50] LABS: Glucose, Whole Blood 176 mg/dL (60-115)
--- NOTE | 2025-01-10 18:01 | PC.NURSE ---
Assumed care at 0700- pt remains intubated and sedated per MAY. SR/ST on tele with PACs and PVCs. Amiodarone gtt d/c my MD, transitioned to PO amio per MAY. HR currently 100-120s with non-sustained bursts up to the 150s- MD aware. Tolerating ACPC vent settings- see vent assessment. Tolerating TF per order, no s/s of TF intolerance. Gordillo remains in place draining cyu. Pt. incontinent of liquid brown stool x3 this shift. See seperate skin note- wound care notified and MD aware of skin changes. Q2 oral care and repositioning performed. Plan of care ongoing.
--- NOTE | 2025-01-10 18:07 | HO.SKINPHOTO ---
Location: [facility] area Category: MASD (per wound care)
[2025-01-10 18:15] LABS: Anion Gap 12 (12-20); Blood Urea Nitrogen 40 mg/dL (9-16); Calcium 8.0 mg/dL (8.4-10.2); Carbon Dioxide 30 mmol/L (22-29); Chloride 105 mmol/L (96-108); Creatinine Clr Calc Pharmacy 74.0; Estimated Glomerular Filt Rate > 60; Magnesium 2.2 mg/dL (1.6-2.6); Potassium 3.2 mmol/L (3.3-5.1); Sodium 144 mmol/L (135-145)
[2025-01-10] MEDS: Potassium Chloride/H20 40 MEQ/100 ML PIGGYBACK 100 MEQ IV (21:00)
[2025-01-10 23:56] LABS: Glucose, Whole Blood 285 mg/dL (60-115)
[2025-01-11] VITALS (33 sets, daily range): BP systolic 94–137; BP diastolic 49–75; PULSE 84–125; RESP 15–23; TEMP 34.4–38.5; O2SAT 87–93; BMI 26.4
[2025-01-11] MEDS: Albumin Human 25 % 50 ML 100 ML IV ×2 (00:15→10:35)
[2025-01-11] MEDS: 0.9 % Sodium Chloride Flush 3 ML SYRINGE IVFLUSH (00:15)
[2025-01-11] MEDS: cefEPime HCl/D5W 2 GM/50 ML PIGGYBACK IV ×2 (01:27→14:20)
[2025-01-11] MEDS: fentaNYL citrate/NS 1,000 MCG/100 ML PLAST..BAG 20 MCG IVCONT (01:27)
[2025-01-11] MEDS: Dextrose 5 % 50 ML 100 ML IV ×2 (03:55→20:30)
[2025-01-11 04:21] LABS: VBG HCO3 28 mmol/L (22-26); VBG O2 % Saturation 85.0 %
[2025-01-11 04:40] LABS: Hematocrit 25.4 % (37.0-47.0)
[2025-01-11 04:42] LABS: Hemoglobin 8.2 g/dl (12.0-16.0); Mean Corpuscular HGB Conc 32.3 g/dl (31.0-35.0); Mean Corpuscular Hemoglobin 27.2 pg (27.0-33.0); Mean Corpuscular Volume 84.1 fL (80.0-98.0); NRBC Abs Auto 0.030 X10*3/uL (0.0-0.012); NRBC Pct Auto 0.2 /100WBC (0.0-0.2); Red Blood Count 3.02 X10*6/uL (4.20-5.50); White Blood Count 16.9 X10*3/uL (4.8-10.8)
[2025-01-11 04:50] LABS: Albumin Level 3.0 g/dL (3.5-5.0)
[2025-01-11 04:58] LABS: Anion Gap 12 (12-20); Blood Urea Nitrogen 42 mg/dL (9-16); Calcium 7.6 mg/dL (8.4-10.2); Carbon Dioxide 25 mmol/L (22-29); Chloride 102 mmol/L (96-108); Creatinine Clr Calc Pharmacy 76.1; Estimated Glomerular Filt Rate > 60; Magnesium 2.2 mg/dL (1.6-2.6); Potassium 3.4 mmol/L (3.3-5.1); Sodium 136 mmol/L (135-145)
[2025-01-11 05:02] LABS: PLT ABN DIST 1; Platelet Count 69 X10*3/uL (160-400)
[2025-01-11 05:19] LABS: Band Neutrophils Percent 16 % (3-5); Lymphocytes Absolute Manual 0.7 X10*3/uL (1.2-4.9); Lymphocytes Percent Manual 4 % (20-40); Neutrophils Absolute Manual 16.2 X10*3/uL (2.0-8.3); Neutrophils Percent Manual 80 % (45-73)
[2025-01-11 05:20] LABS: Large Platelet PRESENT; Macrocytosis 1+ (5-14) /OIF; Microcytosis 1+ (5-14) /OIF; RBC Morphology NOTED
[2025-01-11 05:21] LABS: Ovalocytes 1+ (5-14) /OIF; Schistocytes 1+ (0-2) /OIF
[2025-01-11 05:22] LABS: Basophilic Stippling 1+ (0-2) /OIF; Hypochromasia 1+ (5-14) /OIF; Polychromasia 1+ (0-2) /OIF; Tear Drop Cells 1+ (0-2) /OIF; Toxic Granulation PRESENT
[2025-01-11 05:23] LABS: Stomatocytes 1+ (5-14) /OIF
[2025-01-11 05:44] LABS: Glucose, Whole Blood 208 mg/dL (60-115)
[2025-01-11] MEDS: Potassium Chloride/H20 40 MEQ/100 ML PIGGYBACK 100 MEQ IV (05:52)
[2025-01-11] MEDS: Hydrocortisone Sod Succ/PF 100 MG VIAL 50 MG IVPUSH ×2 (08:07→20:05)
[2025-01-11] MEDS: Chlorhexidine Gluc Oral Rinse 15 ML MOUTHWASH BUCCAL ×3 (08:08→20:05)
[2025-01-11] MEDS: fentaNYL citrate/NS 1,000 MCG/100 ML PLAST..BAG 15 MCG IVCONT ×2 (08:09→14:19)
--- NOTE | 2025-01-11 10:18 | PM.CCPN ---
Subjective Subjective Date of Service: 01/11/25 Interval History: no significant overnight events Critical Care Time (minutes): 60 Physical Exam Vital Signs: Vital Signs: Last Vital Signs Temp 100.4 F 01/11/25 09:00 Pulse 95 01/11/25 09:00 Resp 21 H 01/11/25 09:00 BP 106/61 01/11/25 09:00 Pulse Ox 90 L 01/11/25 09:00 O2 Del Method Mechanical Ventil ation 01/11/25 09:00 O2 Flow Rate 50 12/30/24 16:00 FiO2 85 01/11/25 09:00 Oxygen Flow Rate 60 12/30/24 11:13 BMI result Body Mass Index 26.4 Const: Other: intubated, sedated; no appreciable spontaneous movements General: no acute distress and well developed HEENT: Head: Yes normal to inspection, Yes normocephalic and Yes atraumatic Eyes: General: appearance normal, both eyes and all related structures Neck: Neck: Yes normal visual inspection, Yes full ROM, Yes no meningeal signs, Yes trachea midline and Yes supple Chest: Chest palpation & inspection: normal inspection of the chest Resp: Other: some appreciable rhonchi; no appreciable overt rales, wheezing Effort & Inspection: normal respiratory effort Cardio: Rate: regular rate Rhythm: regular rhythm GI: Inspection: Yes normal to inspection, No Abdominal wall edema and No distended Palpation (GI): Soft to palpation, not firm, nontender, no guarding and not rigid Skin: General skin exam: no rashes or lesions noted Neuro: General: tone normal and no meningeal signs Extrem: Other: appreciable 1+ pitting edema to bilateral shins General: Yes normal to inspection, Yes full ROM and Yes capillary refill normal Psych: Other: unable to assess Objective Data Labs 01/11/25 04:13 01/11/25 04:13 Labs: Laboratory Results - last 24 hr 01/10/25 01/10/25 01/10/25 11:37 17:46 17:56 WBC RBC Hgb Hct MCV MCH MCHC RDW Plt Count MPV Immature Gran % (Auto) Neut % (Auto) Lymph % (Auto) [place] % (Auto) Eos % (Auto) Baso % (Auto) Lymph # (Auto) [place] # (Auto) Eos # (Auto) Baso # (Auto) Abs Immat Gran (auto) Absolute Neuts (auto) Absolute Nucleated RBC Nucleated RBC % (auto) Neutrophils % (Manual) Band Neutrophils % Lymphocytes % (Manual) Abs Neuts (Manual) Lymphocytes # (Manual) Toxic Granulation Platelet Estimate Large Platelets Plt Morphology Comment RBC Morphology Polychromasia Hypochromasia Basophilic Stippling Microcytosis Macrocytosis Tear Drop Cells Ovalocytes Stomatocytes Schistocytes VBG pH VBG pCO2 VBG pO2 VBG HCO3 VBG O2 Saturation VBG Base Excess Sodium 144 Potassium 3.2 L Chloride 105 Carbon Dioxide 30 H Anion Gap 12 BUN 40 H Creatinine 0.73 Estim Creat Clear Calc 74.0 Estimated GFR > 60 POC Glucose 202 H 176 H Random Glucose 161 H Calcium 8.0 L Phosphorus 4.1 Magnesium 2.2 Albumin 01/10/25 01/11/25 01/11/25 23:48 04:13 04:15 WBC 16.9 H RBC 3.02 L D Hgb 8.2 L D Hct 25.4 L D MCV 84.1 MCH 27.2 MCHC 32.3 RDW 26.2 H Plt Count 69 L D MPV Not Reportable Immature Gran % (Auto) Cancelled Neut % (Auto) Cancelled Lymph % (Auto) Cancelled [place] % (Auto) Cancelled Eos % (Auto) Cancelled Baso % (Auto) Cancelled Lymph # (Auto) Cancelled [place] # (Auto) Cancelled Eos # (Auto) Cancelled Baso # (Auto) Cancelled Abs Immat Gran (auto) Cancelled Absolute Neuts (auto) Cancelled Absolute Nucleated RBC 0.030 H Nucleated RBC % (auto) 0.2 Neutrophils % (Manual) 80 H Band Neutrophils % 16 H Lymphocytes % (Manual) 4 L Abs Neuts (Manual) 16.2 H Lymphocytes # (Manual) 0.7 L Toxic Granulation PRESENT Platelet Estimate DECREASED Large Platelets PRESENT Plt Morphology Comment NOTED RBC Morphology NOTED Polychromasia 1+ (0-2) Hypochromasia 1+ (5-14) Basophilic Stippling 1+ (0-2) Microcytosis 1+ (5-14) Macrocytosis 1+ (5-14) Tear Drop Cells 1+ (0-2) Ovalocytes 1+ (5-14) Stomatocytes 1+ (5-14) Schistocytes 1+ (0-2) VBG pH 7.49 H VBG pCO2 37 VBG pO2 53 VBG HCO3 28 H VBG O2 Saturation 85.0 VBG Base Excess 5.3 Sodium 136 Potassium 3.4 Chloride 102 Carbon Dioxide 25 Anion Gap 12 BUN 42 H Creatinine 0.71 Estim Creat Clear Calc 76.1 Estimated GFR > 60 POC Glucose 285 H Random Glucose 252 H Calcium 7.6 L Phosphorus 3.7 Magnesium 2.2 Albumin 3.0 L 01/11/25 05:39 WBC RBC Hgb Hct MCV MCH MCHC RDW Plt Count MPV Immature Gran % (Auto) Neut % (Auto) Lymph % (Auto) [place] % (Auto) Eos % (Auto) Baso % (Auto) Lymph # (Auto) [place] # (Auto) Eos # (Auto) Baso # (Auto) Abs Immat Gran (auto) Absolute Neuts (auto) Absolute Nucleated RBC Nucleated RBC % (auto) Neutrophils % (Manual) Band Neutrophils % Lymphocytes % (Manual) Abs Neuts (Manual) Lymphocytes # (Manual) Toxic Granulation Platelet Estimate Large Platelets Plt Morphology Comment RBC Morphology Polychromasia Hypochromasia Basophilic Stippling Microcytosis Macrocytosis Tear Drop Cells Ovalocytes Stomatocytes Schistocytes VBG pH VBG pCO2 VBG pO2 VBG HCO3 VBG O2 Saturation VBG Base Excess Sodium Potassium Chloride Carbon Dioxide Anion Gap BUN Creatinine Estim Creat Clear Calc Estimated GFR POC Glucose 208 H Random Glucose Calcium Phosphorus Magnesium Albumin Microbiology Microbiology Results: Microbiology 12/31/24 11:58 Bronch Lll Fungal Identification - Preliminary Florecita albicans Filamentous fungus 12/31/24 11:58 Bronch Rul Direct Acid Fast Bacilli Smear - Final 12/31/24 11:58 Bronch Rul Acid Fast Bacilli Culture & Smear - Preliminary 01/01/25 16:20 Cerebrospinal Fluid Gram Stain - Final 01/01/25 16:20 Cerebrospinal Fluid Fluid Description - Final 01/01/25 16:20 Cerebrospinal Fluid CSF Culture - Final No growth after 3 days. 12/31/24 05:23 Blood - Venous Blood Culture - Final No growth after 5 days. 12/31/24 11:58 Bronch Rul Gram Stain - Final 12/31/24 11:58 Bronch Rul - Final No growth after 2 days 12/31/24 11:58 Bronch Lll Gram Stain - Final 12/31/24 11:58 Bronch Lll - Final Yeast 12/22/24 20:59 Blood - Venous Blood Culture - Final No growth after 5 days. 12/22/24 02:49 Blood - Venous Blood Culture - Final No growth after 5 days. 12/22/24 02:49 Blood - Venous Blood Culture - Final No growth after 5 days. 12/19/24 18:25 Pericardial Fluid Gram Stain - Final 12/19/24 18:25 Pericardial Fluid Anaerobic Culture - Final NO GROWTH AFTER 5 DAYS 12/19/24 18:25 Pericardial Fluid Body Fluid Culture - Final No growth after 2 days 12/17/24 08:52 Blood - Venous Blood Culture - Final No growth after 5 days. 12/17/24 08:42 Blood - Venous Blood Culture - Final No growth after 5 days. Progress Note: A&P Assessment and plan (1) ARDS (adult respiratory distress syndrome): Status: Acute (2) Pneumonia: Status: Acute (3) COPD (chronic obstructive pulmonary disease): Status: Acute Plan Patient is a 59 Y F w/ schizoaffective disorder, hyperlipidemia, hypothyroidism, and COPD [facility] w/ encephalopathy, found to be in acute hypoxic respiratory failure thought to be d/t pneumonia, admitted medicine; on 12/19, patient developed worsening acute hypoxic respiratory failure, found to have cardiac tamponade, s/p pericardial drain w/ IR; ICU course c/b worsening respiratory failure, intubated 12/21, extubated 12/24; on 12/30, patient w/ worsening hypoxic respiratory failure, re-intubated N: intubated, sedated w/ propofol, fentanyl gtts, wean as tolerated; schizoaffective disorder, home antipsychotic regimen CV: shock, norepinephrine gtt, wean as tolerated; atrial fibrillation w/ RVR, s/p amiodarone gtt, PO; cardiac tamponade, resolved R: acute hypoxic respiratory failure, likely multi-factorial, d/t aspiration pneumonia, fungal pnuemonia, COPD, intubated 12/21, extubated 12/24, re-intubated 12/30 w/ persistent ARDS GI: c/f lower GI bleed, transfuse as needed, s/p protamine for enoxaparin reversal, resolved; tube feeds : acute renal insufficiency, improved, to monitor renal indices/electrolytes in setting of amphotericin therapy H: c/f lower GI bleed, to hold chemical DVT prophylaxis, mechanical devices ID: pneumonia, possible fungal pneumonia w/ filamentous fungus, empiric cefepime, amphotericin B E: hypothyroidism, home levothyroxine P: schizoaffecitive disorder, home antipsychotic regimen S: assigned guardian Quality Stroke Does the patient have a stroke diagnosis?: No VTE Prior VTE?: No VTE Risk Level:: Medical - moderate - high VTE Device Contraindication: N/A - Device Ordered VTE Drug Contraindication: N/A - Med Ordered
[2025-01-11] MEDS: Calcium Gluconate/NaCl,Iso-Osm 1 GM/50 ML PLAST..BAG IV (10:35)
[2025-01-11 10:38] LABS: Venous Blood Gas Refer to POC result
[2025-01-11 12:30] LABS: Glucose, Whole Blood 266 mg/dL (60-115)
--- NOTE | 2025-01-11 13:59 | W.MHC.ACPN ---
Advanced Care Planning Note Advanced Care Planning Note Discussed with: family member(s) and surrogate Time spent (in minutes): 90 Narrative: I discussed Ms. Alvarados hospital course with her sister and daughter during two separate conversations; I offered updates and clarifications and answered their questions; Ms. Alvarados sister and daughter both feel that Ms. Ronquillo would not want to be on life support for prolonged periods of time; given Ms. Ronquillo has had almost a month long hospital stay, they feel that transitioning Ms. Ronquillo to comfort-focused care would be appropriate at this time; moreover, they believe that Ms. Ronquillo would want to help others, and would want to donate her organs if possible; given such, I contacted Ms. Ronquillo's guardian and described my conversations, after which, Ms. Ronquillo's guardian granted us permission to change her philosophy of care to comfort-focused care whenever Ms. Ronquillo's family feels is appropriate Problems Discussed (1) ARDS (adult respiratory distress syndrome): (2) Pneumonia: (3) COPD (chronic obstructive pulmonary disease):
[2025-01-11 14:54] LABS: Mean Corpuscular HGB Conc 32.6 g/dl (31.0-35.0); Mean Corpuscular Hemoglobin 27.3 pg (27.0-33.0); NRBC Abs Auto 0.000 X10*3/uL (0.0-0.012); NRBC Pct Auto 0.0 /100WBC (0.0-0.2)
[2025-01-11 14:55] LABS: Hematocrit 26.1 % (37.0-47.0); Hemoglobin 8.5 g/dl (12.0-16.0); Mean Corpuscular Volume 83.9 fL (80.0-98.0); Red Blood Count 3.11 X10*6/uL (4.20-5.50); White Blood Count 17.6 X10*3/uL (4.8-10.8)
[2025-01-11 14:56] LABS: Platelet Count 66 X10*3/uL (160-400)
[2025-01-11 14:57] LABS: PLT ABN DIST 1
[2025-01-11 15:00] LABS: INTERNATIONAL NORM RATIO 1.1 (0.9-1.1); Prothrombin Time 12.2 SEC (10.9-12.4)
[2025-01-11 15:02] LABS: Partial Thromboplastin Time 25.2 SEC (26.7-34.1)
[2025-01-11 15:17] LABS: Alanine Aminotransferase 25 U/L (0-31); Alkaline Phosphatase 132 U/L (39-117); Anion Gap 14 (12-20); Aspartate Amino Transferase 26 U/L (5-31); Blood Urea Nitrogen 51 mg/dL (9-16); Calcium 8.1 mg/dL (8.4-10.2); Carbon Dioxide 27 mmol/L (22-29); Chloride 103 mmol/L (96-108); Creatinine Clr Calc Pharmacy 68.9; Estimated Glomerular Filt Rate > 60; Magnesium 2.2 mg/dL (1.6-2.6); Potassium 4.9 mmol/L (3.3-5.1); Sodium 139 mmol/L (135-145)
[2025-01-11 15:28] LABS: Band Neutrophils Percent 41 % (3-5); Neutrophils Absolute Manual 17.6 X10*3/uL (2.0-8.3); Neutrophils Percent Manual 59 % (45-73)
[2025-01-11 15:31] LABS: RBC Morphology NORMAL
[2025-01-11 15:32] LABS: Large Platelet PRESENT; Schistocytes 1+ (0-2) /OIF; Tear Drop Cells 1+ (0-2) /OIF
[2025-01-11 15:33] LABS: Polychromasia 1+ (0-2) /OIF; Toxic Granulation PRESENT
[2025-01-11 16:24] LABS: COVID-19 Test Negative (Negative); IDNOW Serial# 08D9AD1C
[2025-01-11 16:35] LABS: Appearance Urine Clear; Glucose Urine UA 250 mg/dL (Negative); PH 5.5 (5.0-9.0); Specific Gravity - Urine 1.015 (1.005-1.025); UMIC TRIGGER UACC YES
[2025-01-11 17:51] LABS: Glucose, Whole Blood 182 mg/dL (60-115)
[2025-01-11 19:15] LABS: Total Protein Urine Random 50 mg/dL (<12)
[2025-01-11 20:10] LABS: Hematocrit 27.6 % (37.0-47.0); Imm Gran Abs Auto 0.26 X10*3/uL (0.00-0.03); Imm Gran Pct Auto 1.4 % (0.0-0.4); MANUAL DIFF FLAG SCAN; NRBC Abs Auto 0.000 X10*3/uL (0.0-0.012); NRBC Pct Auto 0.0 /100WBC (0.0-0.2); SCAN SMEAR FLAG 1
[2025-01-11 20:12] LABS: Hemoglobin 8.9 g/dl (12.0-16.0); Lymphocytes Absolute Auto 1.1 X10*3/uL (1.2-4.9); Mean Corpuscular HGB Conc 32.2 g/dl (31.0-35.0); Mean Corpuscular Hemoglobin 27.1 pg (27.0-33.0); Mean Corpuscular Volume 84.1 fL (80.0-98.0); PLT CLUMP 1; Red Blood Count 3.28 X10*6/uL (4.20-5.50)
[2025-01-11 20:34] LABS: PLT ABN DIST 1
[2025-01-11 20:37] LABS: Alanine Aminotransferase 23 U/L (0-31); Alkaline Phosphatase 126 U/L (39-117); Anion Gap 14 (12-20); Aspartate Amino Transferase 22 U/L (5-31); Blood Urea Nitrogen 54 mg/dL (9-16); Calcium 8.1 mg/dL (8.4-10.2); Carbon Dioxide 24 mmol/L (22-29); Chloride 107 mmol/L (96-108); Creatinine Clr Calc Pharmacy 69.9; Estimated Glomerular Filt Rate > 60; Magnesium 2.4 mg/dL (1.6-2.6); Potassium 4.5 mmol/L (3.3-5.1); Sodium 140 mmol/L (135-145)
[2025-01-11 20:38] LABS: Platelet Count 69 X10*3/uL (160-400); White Blood Count 18.5 X10*3/uL (4.8-10.8)
[2025-01-11] MEDS: fentaNYL citrate/NS 1,000 MCG/100 ML PLAST..BAG 12.5 MCG IVCONT (20:44)
[2025-01-11 21:28] LABS: INTERNATIONAL NORM RATIO 1.0 (0.9-1.1); Prothrombin Time 11.8 SEC (10.9-12.4)
[2025-01-11 21:30] LABS: Partial Thromboplastin Time 26.2 SEC (26.7-34.1)
[2025-01-11 23:57] LABS: Glucose, Whole Blood 345 mg/dL (60-115)
[2025-01-12] VITALS (21 sets, daily range): BP systolic 106–127; BP diastolic 60–71; PULSE 90–122; RESP 12–23; TEMP 34.9–38.2; O2SAT 88–93; BMI 26.4
[2025-01-12] MEDS: 0.9 % Sodium Chloride Flush 3 ML SYRINGE IVFLUSH (00:29)
[2025-01-12 01:14] LABS: Alanine Aminotransferase 22 U/L (0-31); Alkaline Phosphatase 114 U/L (39-117); Aspartate Amino Transferase 21 U/L (5-31); Magnesium 2.2 mg/dL (1.6-2.6)
[2025-01-12 01:20] LABS: INTERNATIONAL NORM RATIO 1.1 (0.9-1.1); Prothrombin Time 12.1 SEC (10.9-12.4)
[2025-01-12 01:22] LABS: Band Neutrophils Percent 10 % (3-5); Lymphocytes Absolute Manual 0.2 X10*3/uL (1.2-4.9); Lymphocytes Percent Manual 1 % (20-40); Neutrophils Absolute Manual 20.4 X10*3/uL (2.0-8.3); Neutrophils Percent Manual 89 % (45-73)
[2025-01-12 01:22] LABS: Partial Thromboplastin Time 26.7 SEC (26.7-34.1)
[2025-01-12 01:23] LABS: Macrocytosis 1+ (5-14) /OIF; Microcytosis 1+ (5-14) /OIF; RBC Morphology NOTED
[2025-01-12 01:24] LABS: Large Platelet PRESENT; Ovalocytes 1+ (5-14) /OIF; Schistocytes 1+ (0-2) /OIF
[2025-01-12 01:25] LABS: Stomatocytes 1+ (5-14) /OIF; Target Cells 1+ (5-14) /OIF; Tear Drop Cells 1+ (0-2) /OIF
[2025-01-12 01:27] LABS: Basophilic Stippling 1+ (0-2) /OIF; Hypochromasia 1+ (5-14) /OIF
[2025-01-12 01:28] LABS: Polychromasia 1+ (0-2) /OIF
[2025-01-12 01:29] LABS: Toxic Granulation PRESENT
[2025-01-12 01:38] LABS: Hematocrit 24.8 % (37.0-47.0); Hemoglobin 8.1 g/dl (12.0-16.0); Mean Corpuscular HGB Conc 32.7 g/dl (31.0-35.0); Mean Corpuscular Hemoglobin 27.6 pg (27.0-33.0); Mean Corpuscular Volume 84.4 fL (80.0-98.0); NRBC Abs Auto 0.000 X10*3/uL (0.0-0.012); NRBC Pct Auto 0.0 /100WBC (0.0-0.2); PLT CLUMP 1; Red Blood Count 2.94 X10*6/uL (4.20-5.50)
[2025-01-12 01:39] LABS: Platelet Count 64 X10*3/uL (160-400); White Blood Count 20.6 X10*3/uL (4.8-10.8)
[2025-01-12] MEDS: cefEPime HCl/D5W 2 GM/50 ML PIGGYBACK IV (01:40)
[2025-01-12 01:55] LABS: Anion Gap 15 (12-20); Blood Urea Nitrogen 56 mg/dL (9-16); Calcium 7.5 mg/dL (8.4-10.2); Carbon Dioxide 21 mmol/L (22-29); Chloride 103 mmol/L (96-108); Creatinine Clr Calc Pharmacy 66.4; Estimated Glomerular Filt Rate > 60; Potassium 4.8 mmol/L (3.3-5.1); Sodium 134 mmol/L (135-145)
[2025-01-12] MEDS: Dextrose 5 % 50 ML 100 ML IV (02:05)
[2025-01-12] MEDS: fentaNYL citrate/NS 1,000 MCG/100 ML PLAST..BAG 12.5 MCG IVCONT ×2 (03:20→11:22)
[2025-01-12 03:43] LABS: Appearance Urine Cloudy; Glucose Urine UA 500 mg/dL (Negative); PH 5.5 (5.0-9.0); Specific Gravity - Urine 1.010 (1.005-1.025); UMIC TRIGGER UACC YES
[2025-01-12 06:04] LABS: Glucose, Whole Blood 190 mg/dL (60-115)
--- NOTE | 2025-01-12 07:04 | PC.NURSE ---
Upon initial assessment at approximately 1900- Patient sedated on Propofol and Fentanyl infusions; RASS -5, titrated for vent synchrony. ST on tele, HR 100-130s, MAP >65. Bilateral hand non-pitting edema, elevated on pillows. ETT #7.5, 19 at the lip. On ACPC settings, SpO2 >88%, RR 20s, inspiratory rhonchi throughout, see vent assessment for further details. OGT in place, receiving Glucerna, no s/s of tube feed intolerance. Positive bowel sounds. Gordillo in place, draining yellow urine. Impaired skin integrity,? see wound care note for further details.?[place] from NEDs at bedside. Tube feeds paused at 0000 per [employer] d/t OR scheduled for 1200.? UA and blood drawn per orders- see EMR for results. See EMR/ Flowsheet for further details. Bed locked and in lowest position. Repositioned Q2H with pillows and wedges. Report given to oncoming RN at 0700.
[2025-01-12 07:55] LABS: Hemoglobin 8.2 g/dl (12.0-16.0); Mean Corpuscular Hemoglobin 27.0 pg (27.0-33.0); Red Blood Count 3.04 X10*6/uL (4.20-5.50); SCAN SMEAR FLAG 1
[2025-01-12 07:57] LABS: Hematocrit 25.4 % (37.0-47.0); INTERNATIONAL NORM RATIO 1.0 (0.9-1.1); Imm Gran Abs Auto 0.28 X10*3/uL (0.00-0.03); Imm Gran Pct Auto 1.6 % (0.0-0.4); Lymphocytes Absolute Auto 1.2 X10*3/uL (1.2-4.9); MANUAL DIFF FLAG SCAN; Mean Corpuscular HGB Conc 32.3 g/dl (31.0-35.0); Mean Corpuscular Volume 83.6 fL (80.0-98.0); NRBC Abs Auto 0.020 X10*3/uL (0.0-0.012); NRBC Pct Auto 0.1 /100WBC (0.0-0.2); Prothrombin Time 11.6 SEC (10.9-12.4); White Blood Count 17.8 X10*3/uL (4.8-10.8)
[2025-01-12 07:59] LABS: PLT ABN DIST 1; Platelet Count 62 X10*3/uL (160-400)
[2025-01-12 08:00] LABS: Partial Thromboplastin Time 26.0 SEC (26.7-34.1)
[2025-01-12 08:18] LABS: Alanine Aminotransferase 21 U/L (0-31); Alkaline Phosphatase 106 U/L (39-117); Anion Gap 12 (12-20); Aspartate Amino Transferase 16 U/L (5-31); Blood Urea Nitrogen 59 mg/dL (9-16); Calcium 8.1 mg/dL (8.4-10.2); Carbon Dioxide 26 mmol/L (22-29); Chloride 104 mmol/L (96-108); Creatinine Clr Calc Pharmacy 65.6; Estimated Glomerular Filt Rate > 60; Magnesium 2.2 mg/dL (1.6-2.6); Potassium 4.4 mmol/L (3.3-5.1); Sodium 138 mmol/L (135-145)
[2025-01-12] MEDS: Hydrocortisone Sod Succ/PF 100 MG VIAL 50 MG IVPUSH (09:04)
[2025-01-12] MEDS: Chlorhexidine Gluc Oral Rinse 15 ML MOUTHWASH BUCCAL (09:04)
--- NOTE | 2025-01-12 09:37 | PM.CCPN ---
Subjective Subjective Date of Service: 01/12/25 Interval History: no significant overnight events; plan for comfort-focused care, possible organ donation today Critical Care Time (minutes): 90 Physical Exam Vital Signs: Vital Signs: Last Vital Signs Temp 99.9 F 01/12/25 08:00 Pulse 103 H 01/12/25 09:00 Resp 17 01/12/25 09:00 BP 110/62 01/12/25 09:00 Pulse Ox 91 L 01/12/25 09:00 O2 Del Method Mechanical Ventil ation 01/12/25 09:00 O2 Flow Rate 50 12/30/24 16:00 FiO2 90 01/12/25 09:00 Oxygen Flow Rate 60 12/30/24 11:13 BMI result Body Mass Index 26.4 Const: Other: intubated, sedated; no appreciable spontaneous movements General: no acute distress and well developed HEENT: Head: Yes normal to inspection, Yes normocephalic and Yes atraumatic Eyes: General: appearance normal, both eyes and all related structures Neck: Neck: Yes normal visual inspection, Yes full ROM, Yes no meningeal signs, Yes trachea midline and Yes supple Chest: Chest palpation & inspection: normal inspection of the chest Resp: Other: appreciable rhonchi and rales throughout; no appreciable overt wheezing Effort & Inspection: normal respiratory effort Cardio: Rate: tachycardic Rhythm: regular rhythm GI: Inspection: Yes normal to inspection, No Abdominal wall edema and No distended Palpation (GI): Soft to palpation, not firm, nontender, no guarding and not rigid Skin: General skin exam: no rashes or lesions noted Neuro: General: tone normal and no meningeal signs Extrem: Other: appreciable trace pitting edema to bilateral shins General: Yes normal to inspection, Yes full ROM and Yes capillary refill normal Psych: Other: unable to assess Objective Data Labs 01/12/25 07:35 01/12/25 07:35 Labs: Laboratory Results - last 24 hr 01/11/25 01/11/25 01/11/25 12:22 14:39 15:10 WBC 17.6 H RBC 3.11 L Hgb 8.5 L Hct 26.1 L MCV 83.9 MCH 27.3 MCHC 32.6 RDW 26.4 H Plt Count 66 L MPV Not Reportable Immature Gran % (Auto) Cancelled Neut % (Auto) Cancelled Lymph % (Auto) Cancelled [place] % (Auto) Cancelled Eos % (Auto) Cancelled Baso % (Auto) Cancelled Lymph # (Auto) Cancelled [place] # (Auto) Cancelled Eos # (Auto) Cancelled Baso # (Auto) Cancelled Abs Immat Gran (auto) Cancelled Absolute Neuts (auto) Cancelled Absolute Nucleated RBC 0.000 Nucleated RBC % (auto) 0.0 Neutrophils % (Manual) 59 Band Neutrophils % 41 H Lymphocytes % (Manual) Abs Neuts (Manual) 17.6 H Lymphocytes # (Manual) Toxic Granulation PRESENT Platelet Estimate DECREASED Large Platelets PRESENT Plt Morphology Comment NOTED RBC Morphology NORMAL Polychromasia 1+ (0-2) Hypochromasia Basophilic Stippling Microcytosis Macrocytosis Target Cells Tear Drop Cells 1+ (0-2) Ovalocytes Stomatocytes Schistocytes 1+ (0-2) Smear Tech's Comments PT 12.2 INR 1.1 APTT 25.2 L Sodium 139 Potassium 4.9 D Chloride 103 Carbon Dioxide 27 Anion Gap 14 BUN 51 H Creatinine 0.79 Estim Creat Clear Calc 68.9 Estimated GFR > 60 POC Glucose 266 H Random Glucose 251 H Lactic Acid 1.9 Calcium 8.1 L D Phosphorus 3.3 Magnesium 2.2 Total Bilirubin 0.9 Direct Bilirubin 0.6 H AST 26 ALT 25 Alkaline Phosphatase 132 H Lactate Dehydrogenase 297 H Urine Color Urine Appearance Urine pH Ur Specific [place] Urine Protein Urine Glucose (UA) Urine Ketones Urine Blood Urine Nitrite Ur Leukocyte Esterase Urine RBC Urine WBC Ur Squamous Epith Cells Urine Bacteria Hyaline Casts Granular Casts U Random Total Protein Urine Creatinine COVID-19 ([facility]IO) Negative COVID-19 Clin Com See Note Blood Type A Negative Antibody Screen NEGATIVE Crossmatch See Detail 01/11/25 01/11/25 01/11/25 16:20 17:44 20:01 WBC RBC Hgb Hct MCV MCH MCHC RDW Plt Count MPV Immature Gran % (Auto) Neut % (Auto) Lymph % (Auto) [place] % (Auto) Eos % (Auto) Baso % (Auto) Lymph # (Auto) [place] # (Auto) Eos # (Auto) Baso # (Auto) Abs Immat Gran (auto) Absolute Neuts (auto) Absolute Nucleated RBC Nucleated RBC % (auto) Neutrophils % (Manual) Band Neutrophils % Lymphocytes % (Manual) Abs Neuts (Manual) Lymphocytes # (Manual) Toxic Granulation Platelet Estimate Large Platelets Plt Morphology Comment RBC Morphology Polychromasia Hypochromasia Basophilic Stippling Microcytosis Macrocytosis Target Cells Tear Drop Cells Ovalocytes Stomatocytes Schistocytes Smear Tech's Comments PT 11.8 INR 1.0 APTT 26.2 L Sodium Potassium Chloride Carbon Dioxide Anion Gap BUN Creatinine Estim Creat Clear Calc Estimated GFR POC Glucose 182 H Random Glucose Lactic Acid 1.7 Calcium Phosphorus Magnesium Total Bilirubin Direct Bilirubin 0.4 AST ALT Alkaline Phosphatase Lactate Dehydrogenase Urine Color Yellow Urine Appearance Clear Urine pH 5.5 Ur Specific [place] 1.015 Urine Protein 100 (2+) H Urine Glucose (UA) 250 H Urine Ketones Negative Urine Blood Small (1+) H Urine Nitrite Negative Ur Leukocyte Esterase Negative Urine RBC 0-2 Urine WBC 0-5 Ur Squamous Epith Cells 6-10 Urine Bacteria None Seen Hyaline Casts 0-2 Granular Casts U Random Total Protein 50 H Urine Creatinine 19.40 COVID-19 ([facility]) COVID-19 Clin Com Blood Type Antibody Screen Crossmatch 01/11/25 01/11/25 01/12/25 20:02 23:52 01:07 EST WBC 18.5 H 20.6 H RBC 3.28 L 2.94 L Hgb 8.9 L 8.1 L Hct 27.6 L 24.8 L MCV 84.1 84.4 MCH 27.1 27.6 MCHC 32.2 32.7 RDW 26.3 H 26.2 H Plt Count 69 L 64 L MPV Not Reportable Not Reportable Immature Gran % (Auto) 1.4 H Cancelled Neut % (Auto) 88.1 H Cancelled Lymph % (Auto) 6.2 L Cancelled [place] % (Auto) 1.7 L Cancelled Eos % (Auto) 2.3 Cancelled Baso % (Auto) 0.3 Cancelled Lymph # (Auto) 1.1 L Cancelled [place] # (Auto) 0.3 Cancelled Eos # (Auto) 0.4 Cancelled Baso # (Auto) 0.1 Cancelled Abs Immat Gran (auto) 0.26 H Cancelled Absolute Neuts (auto) 16.3 H Cancelled Absolute Nucleated RBC 0.000 0.000 Nucleated RBC % (auto) 0.0 0.0 Neutrophils % (Manual) 89 H Band Neutrophils % 10 H Lymphocytes % (Manual) 1 L Abs Neuts (Manual) 20.4 H Lymphocytes # (Manual) 0.2 L Toxic Granulation PRESENT Platelet Estimate DECREASED Large Platelets PRESENT Plt Morphology Comment NOTED RBC Morphology NOTED Polychromasia 1+ (0-2) Hypochromasia 1+ (5-14) Basophilic Stippling 1+ (0-2) Microcytosis 1+ (5-14) Macrocytosis 1+ (5-14) Target Cells 1+ (5-14) Tear Drop Cells 1+ (0-2) Ovalocytes 1+ (5-14) Stomatocytes 1+ (5-14) Schistocytes 1+ (0-2) Smear Tech's Comments VERIFIED PT INR APTT Sodium 140 134 L Potassium 4.5 4.8 Chloride 107 103 Carbon Dioxide 24 21 L Anion Gap 14 15 BUN 54 H 56 H Creatinine 0.78 0.82 Estim Creat Clear Calc 69.9 66.4 Estimated GFR > 60 > 60 POC Glucose 345 H Random Glucose 130 H 347 H Lactic Acid 1.7 Calcium 8.1 L 7.5 L D Phosphorus 3.5 4.1 Magnesium 2.4 2.2 Total Bilirubin 0.8 1.0 Direct Bilirubin 0.7 H AST 22 21 ALT 23 22 Alkaline Phosphatase 126 H 114 Lactate Dehydrogenase 243 H 254 H Urine Color Urine Appearance Urine pH Ur Specific [place] Urine Protein Urine Glucose (UA) Urine Ketones Urine Blood Urine Nitrite Ur Leukocyte Esterase Urine RBC Urine WBC Ur Squamous Epith Cells Urine Bacteria Hyaline Casts Granular Casts U Random Total Protein Urine Creatinine COVID-19 ([facility]) COVID-19 Clin Com Blood Type Antibody Screen Crossmatch 01/12/25 01/12/25 01/12/25 01:08 EST 03:33 05:53 WBC RBC Hgb Hct MCV MCH MCHC RDW Plt Count MPV Immature Gran % (Auto) Neut % (Auto) Lymph % (Auto) [place] % (Auto) Eos % (Auto) Baso % (Auto) Lymph # (Auto) [place] # (Auto) Eos # (Auto) Baso # (Auto) Abs Immat Gran (auto) Absolute Neuts (auto) Absolute Nucleated RBC Nucleated RBC % (auto) Neutrophils % (Manual) Band Neutrophils % Lymphocytes % (Manual) Abs Neuts (Manual) Lymphocytes # (Manual) Toxic Granulation Platelet Estimate Large Platelets Plt Morphology Comment RBC Morphology Polychromasia Hypochromasia Basophilic Stippling Microcytosis Macrocytosis Target Cells Tear Drop Cells Ovalocytes Stomatocytes Schistocytes Smear Tech's Comments PT 12.1 INR 1.1 APTT 26.7 Sodium Potassium Chloride Carbon Dioxide Anion Gap BUN Creatinine Estim Creat Clear Calc Estimated GFR POC Glucose 190 H Random Glucose Lactic Acid Calcium Phosphorus Magnesium Total Bilirubin Direct Bilirubin AST ALT Alkaline Phosphatase Lactate Dehydrogenase Urine Color Yellow Urine Appearance Cloudy Urine pH 5.5 Ur Specific [place] 1.010 Urine Protein 30 (1+) H Urine Glucose (UA) 500 H Urine Ketones Negative Urine Blood Moderate (2+) H Urine Nitrite Negative Ur Leukocyte Esterase Negative Urine RBC 6-10 H Urine WBC 0-5 Ur Squamous Epith Cells 3-5 Urine Bacteria None Seen Hyaline Casts 3-5 Granular Casts Present U Random Total Protein Urine Creatinine COVID-19 ([facility]) COVID-19 Clin Com Blood Type Antibody Screen Crossmatch 01/12/25 07:35 WBC 17.8 H RBC 3.04 L Hgb 8.2 L Hct 25.4 L MCV 83.6 MCH 27.0 MCHC 32.3 RDW Not Reportable Plt Count 62 L MPV Not Reportable Immature Gran % (Auto) 1.6 H Neut % (Auto) 87.5 H Lymph % (Auto) 6.9 L [place] % (Auto) 2.0 Eos % (Auto) 1.8 Baso % (Auto) 0.2 Lymph # (Auto) 1.2 [place] # (Auto) 0.4 Eos # (Auto) 0.3 Baso # (Auto) 0.0 Abs Immat Gran (auto) 0.28 H Absolute Neuts (auto) 15.6 H Absolute Nucleated RBC 0.020 H Nucleated RBC % (auto) 0.1 Neutrophils % (Manual) Band Neutrophils % Lymphocytes % (Manual) Abs Neuts (Manual) Lymphocytes # (Manual) Toxic Granulation Platelet Estimate Large Platelets Plt Morphology Comment RBC Morphology Polychromasia Hypochromasia Basophilic Stippling Microcytosis Macrocytosis Target Cells Tear Drop Cells Ovalocytes Stomatocytes Schistocytes Smear Tech's Comments VERIFIED PT 11.6 INR 1.0 APTT 26.0 L Sodium 138 Potassium 4.4 Chloride 104 Carbon Dioxide 26 Anion Gap 12 BUN 59 H Creatinine 0.83 Estim Creat Clear Calc 65.6 Estimated GFR > 60 POC Glucose Random Glucose 133 H Lactic Acid 1.6 Calcium 8.1 L D Phosphorus 3.6 Magnesium 2.2 Total Bilirubin 0.8 Direct Bilirubin 0.5 AST 16 ALT 21 Alkaline Phosphatase 106 Lactate Dehydrogenase 220 Urine Color Urine Appearance Urine pH Ur Specific [place] Urine Protein Urine Glucose (UA) Urine Ketones Urine Blood Urine Nitrite Ur Leukocyte Esterase Urine RBC Urine WBC Ur Squamous Epith Cells Urine Bacteria Hyaline Casts Granular Casts U Random Total Protein Urine Creatinine COVID-19 ([facility]) COVID-19 Clin Com Blood Type Antibody Screen Crossmatch Microbiology Microbiology Results: Microbiology 12/31/24 11:58 Bronch Lll Fungal Identification - Preliminary Florecita albicans Filamentous fungus 12/31/24 11:58 Bronch Rul Direct Acid Fast Bacilli Smear - Final 12/31/24 11:58 Bronch Rul Acid Fast Bacilli Culture & Smear - Preliminary 01/01/25 16:20 Cerebrospinal Fluid Gram Stain - Final 01/01/25 16:20 Cerebrospinal Fluid Fluid Description - Final 01/01/25 16:20 Cerebrospinal Fluid CSF Culture - Final No growth after 3 days. 12/31/24 05:23 Blood - Venous Blood Culture - Final No growth after 5 days. 12/31/24 11:58 Bronch Rul Gram Stain - Final 12/31/24 11:58 Bronch Rul - Final No growth after 2 days 12/31/24 11:58 Bronch Lll Gram Stain - Final 12/31/24 11:58 Bronch Lll - Final Yeast 12/22/24 20:59 Blood - Venous Blood Culture - Final No growth after 5 days. 12/22/24 02:49 Blood - Venous Blood Culture - Final No growth after 5 days. 12/22/24 02:49 Blood - Venous Blood Culture - Final No growth after 5 days. 12/19/24 18:25 Pericardial Fluid Gram Stain - Final 12/19/24 18:25 Pericardial Fluid Anaerobic Culture - Final NO GROWTH AFTER 5 DAYS 12/19/24 18:25 Pericardial Fluid Body Fluid Culture - Final No growth after 2 days 12/17/24 08:52 Blood - Venous Blood Culture - Final No growth after 5 days. 12/17/24 08:42 Blood - Venous Blood Culture - Final No growth after 5 days. Progress Note: A&P Assessment and plan (1) ARDS (adult respiratory distress syndrome): Status: Acute (2) Pneumonia: Status: Acute Plan Patient is a 59 Y F w/ schizoaffective disorder, hyperlipidemia, hypothyroidism, and COPD presenting to ED from care home facility on 12/17 w/ encephalopathy, found to be in acute hypoxic respiratory failure thought to be d/t pneumonia, admitted medicine; on 12/19, patient developed worsening acute hypoxic respiratory failure, found to have cardiac tamponade, s/p pericardial drain w/ IR; ICU course c/b worsening respiratory failure, intubated 12/21, extubated 12/24; on 12/30, patient w/ worsening hypoxic respiratory failure, re-intubated 12/30; ICU course c/b fungal pneumonia; on 01/12, decision made to transition to comfort-focused care, possible organ donation - continue medical treatment in preparation for [employer], possible organ donation today Quality Stroke Does the patient have a stroke diagnosis?: No VTE Prior VTE?: No VTE Risk Level:: Medical - moderate - high VTE Device Contraindication: N/A - Device Ordered VTE Drug Contraindication: N/A - Med Ordered
--- NOTE | 2025-01-12 09:45 | P.DN_ITS ---
Discharge Sum: Prov Provider Primary care physician: Caleb Mckeon DO Consults: 12/19/24 13:12 Consult to Cardiology Routine Consulting Provider: [facility] Reason for consultation: Heart failure Has provider been notified: Yes 12/30/24 11:29 Consult to Pulmonology Routine Consulting Provider: [facility] Reason for consultation: acute hypoxic respiratory failure Has provider been notified: No 01/07/25 12:18 Consult to Gastroenterology Routine Consulting Provider: Tio Lopez Reason for consultation: ?GI Bleed 01/08/25 08:33 Consult to Infectious Diseases Stat Consulting Provider: KELSEA DE LA FUENTE Reason for consultation: ?Fungal Pneumonia Has provider been notified: No 01/08/25 10:04 Consult to [facility] ([facility]) Routine Consulting Provider: [facility] 01/08/25 21:17 Consult to Wound Care Routine Consulting Provider: [facility] Reason for consultation: New pressure injury to upper lip, perianal maceration 01/10/25 06:49 Consult to Wound Care Routine Consulting Provider: [facility] Reason for consultation: Rectal MDPI?, BL ischium blanchable redness, MASD to buttocks Pronouncing clinician: Nuris Nelson Discharge Sum: Diag PCOD Cause of : Respiratory failure Contributing Factors (1) ARDS (adult respiratory distress syndrome): (2) Pneumonia: Discharge Sum: Summary Date and Time Date of admission: 12/17/24 11:06 Date of : 01/12/25 Summary Details: Ms. Ronquillo is a 59 year-old female with schizoaffective disorder with an assigned guardian, hyperlipidemia, hypothyroidism, and COPD presenting to emergency department from assisted facility on 12/17 with encephalopathy and found to be in acute hypoxic respiratory failure thought to be due to pneumonia and admitted to medicine; Ms. Ronquillo developed worsening acute hypoxic respiratory failure and was found to have cardiac tamponade for which she received a pericardial drain with IR on 12/19; Ms. Ronquillo's ICU course was complicated by worsening acute hypoxic respiratory failure, for which she was intuabted on 12/21; Ms. Ronquillo was extubated on 12/24 and transferred to medicine on 12/25; Ms. Ronquillo again develoepd worsening acute hypoxic respiratory failure, for which she was re-intubated on 12/30; Ms. Ronquillo's second ICU course was complicated by gastronintestinal bleed complicated by acute blood loss anemia and fungal pneumonia; on 01/12, the decision was made to transition to comfort-focused care by her guardian with input from her sister and daughter; Ms. Ronquillo was extubated at 12:45, had circulatory cessation at 12:58, and time of at 13:03 Additional Data Confirmation of as documented by pronouncing clinician: no pulse, no respirations, no heart sounds and pupils fixed and dilated Attending physician: Nuris Nelson MD
--- NOTE | 2025-01-27 10:14 | P.CDIM_ITS ---
PROVIDER RESPONSE TEXT: To clarify, the appropriate diagnosis supported by the clinical indicators: Sepsis is/was present and was present on admission: Probable QUERY TEXT: PHYSICIAN'S DOCUMENTATION REQUEST Date of Query: 01/23/2025 07:29 AM EST Patient Name: Jennifer Ronquillo Admit Date: 12/17/2024 Dear Nuris Nelson MD, RETROSPECTIVE QUERY A review of the medical record indicates additional documentation may be needed. Please review below and update the documentation accordingly. Clinical indicators: Progress note 12/17/24 - Metabolic encephalopathy due to Pneumonia, acute lactic acidosis, tachycardia. WBC 14.0 LA 2.1 HR 109 RR 15 O2 sat 86% BP 141/78 Ceftriaxone and Azithromycin Sepsis event note 12/22/24 - Current stage of Sepsis: Severe sepsis. ICU Progress note 12/25/24 - Broad spectrum antibiotics and IV fluid resuscitation for Sepsis with worsening hypoxemia. Progress notes 12/25 - 12/30/24- Toxic encephalopathy likely multifactorial in the setting of Sepsis, acute hypoxic respiratory failure/ARDS. Sepsis Systemic manifestations of infection, with 2 or more SIRS criteria which include: Fever > 100.4?F or hypothermia < 96.8?F Leukocytosis - WBC > 12,000 or leukopenia, WBC < 4,000, or > 10% bands Tachycardia- > 90 beats/minute Tachypnea- RR > 20 breaths/minute or PaCO2 < 32mmHg Severe Sepsis Sepsis with associated acute organ dysfunction, such as renal or respiratory failure Based on the above information and the recognized standard for sepsis, could you please clarify the present on admission status related to the Sepsis for this admission: Sepsis is/was present and was present on admission possible, probable, suspected, cannot rule out etc. After study Sepsis was present after admission and treated Other (explain) Clinically unable to determine (explain) Thank you, Tegan Frankel, CCS, CDIS Use of terms such as suspected, likely, concern for, or probable (associated with a specific diagnosis that is being evaluated, monitored, or treated as if it exists) are acceptable and can be coded in the inpatient setting, when documented at the time of discharge. Please use your independent medical judgment in providing your response. THIS QUERY IS PART OF THE PERMANENT MEDICAL RECORD
== END 2025-01-12 17:32 | disposition expired | DRG 870 ==
LOC: HO.ED 09:16 → HO.EDOVER 11:14 → HO.S3 12-18 07:00 → HO.IMC 12-19 07:36 → HO.ICU 12-19 17:38 → HO.IMC 12-25 13:59 → HO.ICU 12-30 11:59
PROVIDERS: Hospitalist; Internal Medicine; Internal Medicine Critical Care Medicine; Internal Medicine Gastroenterology; Internal Medicine Pulmonary Disease; Nurse Practitioner Family; Physician Assistant Medical; Registered Nurse Community Health; Student in an Organized Health Care Education/Training Program; Admitting Provider Hospitalist; Emergency Provider Emergency Medicine; PCP Hospitalist; Visit Provider Internal Medicine Critical Care Medicine
PROC: 0W9D30Z Drainage of Pericardial Cavity with Drainage Device, Percutaneous Approach (ICD-10-PCS; principal; 2024-12-19 17:00)
DX: A41.9 Sepsis, unspecified organism (principal); B37.1 Pulmonary candidiasis; G92.8 Other toxic encephalopathy; J69.0 Pneumonitis due to inhalation of food and vomit; J80 Acute respiratory distress syndrome; J18.9 Pneumonia, unspecified organism; I31.4 Cardiac tamponade; I31.39 Other pericardial effusion (noninflammatory); E87.0 Hyperosmolality and hypernatremia; J44.0 Chronic obstructive pulmonary disease with (acute) lower respiratory infection; D61.818 Other pancytopenia; N17.9 Acute kidney failure, unspecified; J93.9 Pneumothorax, unspecified; K92.2 Gastrointestinal hemorrhage, unspecified; D62 Acute posthemorrhagic anemia; F17.210 Nicotine dependence, cigarettes, uncomplicated; F25.9 Schizoaffective disorder, unspecified; E87.6 Hypokalemia; E11.65 Type 2 diabetes mellitus with hyperglycemia; E78.5 Hyperlipidemia, unspecified; I50.9 Heart failure, unspecified; J84.10 Pulmonary fibrosis, unspecified; R65.20 Severe sepsis without septic shock; F41.9 Anxiety disorder, unspecified; Z51.5 Encounter for palliative care; Z66 Do not resuscitate; R57.0 Cardiogenic shock; E03.9 Hypothyroidism, unspecified; Z20.822 Contact with and (suspected) exposure to COVID-19; Z87.440 Personal history of urinary (tract) infections; Z71.6 Tobacco abuse counseling; Z79.4 Long term (current) use of insulin; Z79.51 Long term (current) use of inhaled steroids; Z79.890 Hormone replacement therapy; Z79.899 Other long term (current) drug therapy
CPT/HCPCS: 33016; 36415; 36600; 70450; 70551; 71045; 71250; 71275; 74174; 74177; 80048; 80053; 80076; 80202; 81001; 81003; 82040; 82042; 82140; 82164; 82247; 82248; 82272; 82570; 82803; 82945; 82947; 83540; 83605; 83615; 83690; 83735; 83880; 84075; 84100; 84156; 84157; 84166; 84181; 84450; 84460; 84478; 84484; 85007; 85025; 85027; 85610; 85730; 86021; 86038; 86140; 86225; 86235; 86255; 86256; 86431; 86480; 86592; 86704; 86705; 86706; 86803; 86850; 86900; 86901; 86923; 87015; 87040; 87070; 87071; 87073; 87102; 87106; 87107; 87116; 87205; 87206; 87340; 87389; 87449; 87476; 87502; 87564; 87635; 87798; 88112; 88305; 88307; 88313; 88341; 88342; 88360; 89051; 92610; 93005; 93306; 93308; 94002; 94003; 94640; 94799; 99285; C1729; C1769; J0131; J0282; J0283; J0285; J0330; J0456; J0613; J0616; J0637; J0651; J0692; J0696; J1171; J1205; J1450; J1650; J1720; J1836; J1938; J2250; J2270; J2359; J2470; J2598; J2704; J2720; J2919; J3010; J3360; J3374; J3465; J3475; J3480; J7120; P9016; P9017; P9047; P9073; Q9957; Q9967

== ENCOUNTER → 2024-12-17 08:17 | Outpatient (BNV) | payer MEDICARE, SELFPAY | PROVIDERS: Admitting Provider Hospitalist; Emergency Provider Emergency Medicine; PCP Hospitalist; Visit Provider Internal Medicine Cardiovascular Disease | DX: I49.1 Atrial premature depolarization (principal); R00.0 Tachycardia, unspecified | CPT/HCPCS: 93010 ==

== ENCOUNTER → 2024-12-17 08:18 | Outpatient (BNV) | payer MEDICARE, SELFPAY | PROVIDERS: Emergency Provider Emergency Medicine; PCP Hospitalist; Visit Provider Radiology Diagnostic Radiology | DX: R91.8 Other nonspecific abnormal finding of lung field (principal) | CPT/HCPCS: 71045 ==

== ENCOUNTER 2024-12-17 11:06 | Outpatient (BNV) | payer MEDICARE, SELFPAY | END 2025-01-06 10:00 | PROVIDERS: Admitting Provider Hospitalist; Emergency Provider Emergency Medicine; PCP Hospitalist; Visit Provider Internal Medicine | DX: Z13.6 Encounter for screening for cardiovascular disorders (principal) | CPT/HCPCS: 93308 ==

== ENCOUNTER 2024-12-17 11:06 | Outpatient (BNV) | payer MEDICARE, SELFPAY | END 2024-12-19 07:39 | PROVIDERS: Admitting Provider Hospitalist; Emergency Provider Emergency Medicine; PCP Hospitalist; Visit Provider Internal Medicine Cardiovascular Disease | DX: I31.39 Other pericardial effusion (noninflammatory) (principal); R00.0 Tachycardia, unspecified; I49.1 Atrial premature depolarization; I49.3 Ventricular premature depolarization | CPT/HCPCS: 93010; 93306 ==

== ENCOUNTER 2024-12-17 11:06 | Outpatient (BNV) | payer MEDICARE, SELFPAY | END 2024-12-26 01:49 | PROVIDERS: Admitting Provider Hospitalist; Emergency Provider Emergency Medicine; PCP Hospitalist; Visit Provider Internal Medicine Cardiovascular Disease | DX: R00.0 Tachycardia, unspecified (principal); I49.1 Atrial premature depolarization; I51.7 Cardiomegaly | CPT/HCPCS: 93010 ==

== ENCOUNTER 2024-12-17 11:06 | Outpatient (BNV) | payer MEDICARE, SELFPAY | END 2025-01-05 20:17 | PROVIDERS: Admitting Provider Hospitalist; Emergency Provider Emergency Medicine; PCP Hospitalist; Visit Provider Family Medicine | DX: R91.8 Other nonspecific abnormal finding of lung field (principal); J43.9 Emphysema, unspecified; Z97.8 Presence of other specified devices | CPT/HCPCS: 71045 ==

== ENCOUNTER 2024-12-17 11:06 | Outpatient (BNV) | payer MEDICARE, SELFPAY | END 2024-12-22 01:55 | PROVIDERS: Admitting Provider Hospitalist; Emergency Provider Emergency Medicine; PCP Hospitalist; Visit Provider Radiology Diagnostic Radiology | DX: Z46.82 Encounter for fitting and adjustment of non-vascular catheter (principal); K44.9 Diaphragmatic hernia without obstruction or gangrene | CPT/HCPCS: 71045 ==

== ENCOUNTER 2024-12-17 11:06 | Outpatient (BNV) | payer MEDICARE, SELFPAY | END 2024-12-19 06:05 | PROVIDERS: Admitting Provider Hospitalist; Emergency Provider Emergency Medicine; PCP Hospitalist; Visit Provider Radiology Vascular & Interventional Radiology | DX: J98.09 Other diseases of bronchus, not elsewhere classified (principal); R91.8 Other nonspecific abnormal finding of lung field | CPT/HCPCS: 71045 ==

== ENCOUNTER 2024-12-17 11:06 | Outpatient (BNV) | payer MEDICARE, SELFPAY | END 2024-12-30 14:26 | PROVIDERS: Admitting Provider Hospitalist; Emergency Provider Emergency Medicine; PCP Hospitalist; Visit Provider Radiology Diagnostic Radiology | DX: J84.10 Pulmonary fibrosis, unspecified (principal); J98.4 Other disorders of lung | CPT/HCPCS: 71045 ==

== ENCOUNTER 2024-12-17 11:06 | Outpatient (BNV) | payer MEDICARE, SELFPAY | END 2024-12-26 02:30 | PROVIDERS: Admitting Provider Hospitalist; Emergency Provider Emergency Medicine; PCP Hospitalist; Visit Provider Student in an Organized Health Care Education/Training Program | DX: R91.8 Other nonspecific abnormal finding of lung field (principal); J90 Pleural effusion, not elsewhere classified; K44.9 Diaphragmatic hernia without obstruction or gangrene | CPT/HCPCS: 71275 ==

== ENCOUNTER 2024-12-17 11:06 | Outpatient (BNV) | payer MEDICARE, SELFPAY | END 2024-12-30 20:29 | PROVIDERS: Admitting Provider Hospitalist; Emergency Provider Emergency Medicine; PCP Hospitalist; Visit Provider Internal Medicine Cardiovascular Disease | DX: R94.31 Abnormal electrocardiogram [ECG] [EKG] (principal) | CPT/HCPCS: 93010 ==

== ENCOUNTER 2024-12-17 11:06 | Outpatient (BNV) | payer MEDICARE, SELFPAY | END 2025-01-07 08:00 | PROVIDERS: Admitting Provider Hospitalist; Emergency Provider Emergency Medicine; PCP Hospitalist; Visit Provider Radiology Diagnostic Radiology | DX: K52.9 Noninfective gastroenteritis and colitis, unspecified (principal); J93.9 Pneumothorax, unspecified; J98.2 Interstitial emphysema; J90 Pleural effusion, not elsewhere classified; N28.1 Cyst of kidney, acquired; K46.9 Unspecified abdominal hernia without obstruction or gangrene; Z03.89 Encounter for observation for other suspected diseases and conditions ruled out | CPT/HCPCS: 71045 ==

== ENCOUNTER 2024-12-17 11:06 | Outpatient (BNV) | payer MEDICARE, SELFPAY | END 2024-12-23 07:00 | PROVIDERS: Admitting Provider Hospitalist; Emergency Provider Emergency Medicine; PCP Hospitalist; Visit Provider Internal Medicine Cardiovascular Disease | DX: I31.39 Other pericardial effusion (noninflammatory) (principal) | CPT/HCPCS: 93308; 93321 ==

== ENCOUNTER 2024-12-17 11:06 | Outpatient (BNV) | payer MEDICARE, SELFPAY | END 2024-12-20 09:00 | PROVIDERS: Admitting Provider Hospitalist; Emergency Provider Emergency Medicine; PCP Hospitalist; Visit Provider Internal Medicine Cardiovascular Disease | DX: I31.39 Other pericardial effusion (noninflammatory) (principal) | CPT/HCPCS: 93308; 93321 ==

== ENCOUNTER 2024-12-17 11:06 | Outpatient (BNV) | payer MEDICARE, SELFPAY | END 2024-12-25 23:20 | PROVIDERS: Admitting Provider Hospitalist; Emergency Provider Emergency Medicine; PCP Hospitalist; Visit Provider Radiology Diagnostic Radiology | DX: R09.89 Other specified symptoms and signs involving the circulatory and respiratory systems (principal) | CPT/HCPCS: 71045 ==

== ENCOUNTER 2024-12-17 11:06 | Outpatient (BNV) | payer MEDICARE, SELFPAY | END 2024-12-20 07:02 | PROVIDERS: Admitting Provider Hospitalist; Emergency Provider Emergency Medicine; PCP Hospitalist; Visit Provider Radiology Diagnostic Radiology | DX: R09.02 Hypoxemia (principal); Z97.8 Presence of other specified devices | CPT/HCPCS: 71045 ==

== ENCOUNTER 2024-12-17 11:06 | Outpatient (BNV) | payer MEDICARE, SELFPAY | END 2024-12-31 12:41 | PROVIDERS: Admitting Provider Hospitalist; Emergency Provider Emergency Medicine; PCP Hospitalist; Visit Provider Radiology Diagnostic Radiology | DX: R47.01 Aphasia (principal) | CPT/HCPCS: 70551 ==

== ENCOUNTER → 2024-12-17 11:06 | Outpatient (BNV) | payer MEDICARE, SELFPAY | PROVIDERS: Admitting Provider Hospitalist; Emergency Provider Emergency Medicine; PCP Hospitalist; Visit Provider Internal Medicine Cardiovascular Disease | DX: I31.39 Other pericardial effusion (noninflammatory) (principal); I31.4 Cardiac tamponade | CPT/HCPCS: 99223; 99232 ==

== ENCOUNTER → 2024-12-17 11:06 | Outpatient (BNV) | payer MEDICARE, SELFPAY | PROVIDERS: Admitting Provider Hospitalist; Emergency Provider Emergency Medicine; PCP Hospitalist; Visit Provider Internal Medicine Pulmonary Disease | DX: J96.01 Acute respiratory failure with hypoxia (principal); J44.9 Chronic obstructive pulmonary disease, unspecified | CPT/HCPCS: 99222; 99291 ==

== ENCOUNTER → 2024-12-17 11:06 | Outpatient (BNV) | payer MEDICARE, SELFPAY | PROVIDERS: Admitting Provider Hospitalist; Emergency Provider Emergency Medicine; PCP Hospitalist; Visit Provider Internal Medicine Critical Care Medicine | DX: J44.9 Chronic obstructive pulmonary disease, unspecified (principal); J96.01 Acute respiratory failure with hypoxia; J18.9 Pneumonia, unspecified organism; I31.39 Other pericardial effusion (noninflammatory); I31.4 Cardiac tamponade | CPT/HCPCS: 31500; 99291; 99292; 99499 ==

== ENCOUNTER → 2024-12-17 11:06 | Outpatient (BNV) | payer MEDICARE, SELFPAY | PROVIDERS: Admitting Provider Hospitalist; Emergency Provider Emergency Medicine; PCP Hospitalist; Visit Provider Internal Medicine Gastroenterology | DX: D64.9 Anemia, unspecified (principal) | CPT/HCPCS: 99232 ==

== ENCOUNTER → 2024-12-17 11:06 | Outpatient (BNV) | payer MEDICARE, SELFPAY | PROVIDERS: Admitting Provider Hospitalist; Emergency Provider Emergency Medicine; PCP Hospitalist; Visit Provider Hospitalist | DX: J18.9 Pneumonia, unspecified organism (principal); J44.9 Chronic obstructive pulmonary disease, unspecified | CPT/HCPCS: 99232; 99233; 99499 ==